=== PATIENT | female | born 1950 | race Caucasian/White ===

== ENCOUNTER 2020-03-26 15:50 | Outpatient (REF) | payer MEDICARE, SELFPAY ==
[2020-03-26 16:51] LABS: Basophils Percent Auto 0.6 % (0-2); Eosinophils Absolute Auto 0.4 X10*3/uL (0.0-0.4); Eosinophils Percent Auto 6.3 % (0-4); Hematocrit 31.9 % (37-47); Hemoglobin 9.8 g/dl (12.0-16.0); Imm Gran Abs Auto 0.02 X10*3/uL (0.00-0.03); Imm Gran Pct Auto 0.3 % (0.0-0.4); Lymphocytes Absolute Auto 2.2 X10*3/uL (1.2-4.9); Lymphocytes Percent Auto 34.6 % (20-40); MANUAL DIFF FLAG NO; Mean Corpuscular HGB Conc 30.7 g/dl (31.0-35.0); Mean Corpuscular Hemoglobin 28.7 pg (27.0-33.0); Mean Corpuscular Volume 93.5 fL (80-98); Mean Platelet Volume 9.7 fL (9.4-12.3); Monocytes Absolute Auto 0.8 X10*3/uL (0.1-1.2); Monocytes Percent Auto 12.2 % (2-11); Neutrophils Absolute Auto 2.9 X10*3/uL (2.0-8.3); Platelet Count 181 X10*3/uL (160-400); Red Blood Count 3.41 X10*6/uL (4.20-5.50); Red Cell Distribution Width 13.2 % (11.0-16.0); White Blood Count 6.2 X10*3/uL (4.8-10.8)
[2020-03-26 16:55] LABS: Appearance Urine CLEAR; Color Urine YELLOW; Glucose Urine UA NEG (NEG); Leukocyte Esterase Urine NEG (NEG); Nitrite Urine NEG (NEG); PH 5.5 (5.0-8.0); Specific Gravity - Urine 1.025 (1.005-1.025); Urine Blood 3+ (NEG); Urine Ketones NEG (NEG); Urine Protein 2+ MG/DL (NEG-TRACE)
[2020-03-26 17:08] LABS: Squamous Epithelial Cell Urine 2+ /LPF
[2020-03-26 17:09] LABS: Bacteria Urine TRACE /LPF; Mucus Urine TRACE /LPF
[2020-03-26 17:18] LABS: Alanine Aminotransferase 26 U/L (0-31); Albumin Level 3.4 g/dL (3.5-5.0); Alkaline Phosphatase 216 U/L (39-117); Anion Gap 12 (12-20); Aspartate Amino Transferase 41 U/L (5-31); Bilirubin Total 0.3 mg/dL (0.0-1.0); Blood Urea Nitrogen 28 mg/dL (9-16); Calcium 8.3 mg/dL (8.4-10.2); Carbon Dioxide 22 mmol/L (22-29); Chloride 108 mmol/L (96-108); Estimated Glomerular Filt Rate 24; Glucose Random 97 mg/dL (60-115); Iron 41 mcg/dL (30-160); Percent Iron Saturation 15 % (15-50); Phosphorus 3.8 mg/dL (2.7-4.5); Sodium 137 mmol/L (135-145); Total Iron Binding Capacity 265 mcg/dL (228-428); Total Protein 6.7 g/dL (6.5-8.0); Unsaturated Iron Binding 224 ug/dL; Uric Acid 5.3 mg/dL (2.4-5.7)
[2020-03-26 17:37] LABS: Ferritin 93 ng/mL (10-250)
[2020-03-26 17:46] LABS: Protein/Creatinine Ratio, Ur 5.07 (<0.2); Total Protein Urine Random 392 mg/dL (<12)
[2020-03-29 19:11] LABS: Calcium (PTHI) 8.8 mg/dL (8.6-10.4); PTHI 122 pg/mL (14-64)
== END 2020-03-26 15:51 | disposition home or self-care (01) ==
LOC: HO.LAB 15:50
PROVIDERS: PCP Family Medicine; Visit Provider Internal Medicine
DX: N18.4 Chronic kidney disease, stage 4 (severe) (principal)
CPT/HCPCS: 36415; 80053; 81001; 82306; 82728; 83540; 83970; 84100; 84156; 84550; 85025

== ENCOUNTER → 2020-04-20 14:51 | Outpatient (BNVA) | payer MEDICARE, SELFPAY | PROVIDERS: PCP Family Medicine; Referring Provider Family Medicine; Visit Provider Internal Medicine Cardiovascular Disease | DX: I47.2 Ventricular tachycardia (principal); Z45.02 Encounter for adjustment and management of automatic implantable cardiac defibrillator; I48.0 Paroxysmal atrial fibrillation; I25.5 Ischemic cardiomyopathy; I25.10 Atherosclerotic heart disease of native coronary artery without angina pectoris | CPT/HCPCS: 99212 ==

== ENCOUNTER 2020-08-26 13:31 | Outpatient (REF) | payer MEDICARE, SELFPAY ==
--- NOTE | ~2020-08-26 | MM_ITS ---
EXAMINATION: MM SCREENING DIGITAL BREAST TOMOSYNTHESIS, BILATERAL CLINICAL INFORMATION: Screening. Asymptomatic. The lifetime risk of breast cancer based on the Tyrer-Cuzick Model is 2%. COMPARISON: Mammography: 05/30/2019, 04/02/2018, 03/09/2017. TECHNIQUE: Digital breast tomosynthesis is performed in both the craniocaudal and mediolateral oblique views along with computer-aided detection (CAD). Synthesized 2D images are generated from the tomosynthesis. Additional right CC view is provided. FINDINGS: There are scattered areas of fibroglandular density (ACR BI-RADS breast composition Category b). There are no significant masses, abnormal calcifications, or other abnormalities. There are bilateral vascular and some scattered benign round calcifications again seen. Pacemaker generator overlies and partly obscures left axilla on MLO view. MM/MM tomosynthesis screening BI IMPRESSION: No mammographic evidence of malignancy. ASSESSMENT: BI-RADS 2: Benign RECOMMENDATION: Routine annual mammography screening. This patient's information was entered into a reminder system with a target due date for their next mammogram.
== END 2020-08-26 13:32 | disposition home or self-care (01) ==
LOC: HO.MAMMO 13:31
PROVIDERS: PCP Family Medicine; Visit Provider Family Medicine
DX: Z12.31 Encounter for screening mammogram for malignant neoplasm of breast (principal)
CPT/HCPCS: 77063; 77067

== ENCOUNTER 2020-11-01 08:24 | Outpatient (REF) | payer MEDICARE, SELFPAY ==
[2020-11-01 09:20] LABS: MANUAL DIFF FLAG NO
[2020-11-01 09:25] LABS: Basophils Percent Auto 0.7 % (0-2); Eosinophils Absolute Auto 0.3 X10*3/uL (0.0-0.4); Eosinophils Percent Auto 5.6 % (0-4); Hematocrit 34.2 % (37-47); Hemoglobin 10.5 g/dl (12.0-16.0); Imm Gran Abs Auto 0.02 X10*3/uL (0.00-0.03); Imm Gran Pct Auto 0.4 % (0.0-0.4); Lymphocytes Absolute Auto 1.7 X10*3/uL (1.2-4.9); Mean Corpuscular HGB Conc 30.7 g/dl (31.0-35.0); Mean Corpuscular Hemoglobin 28.1 pg (27.0-33.0); Mean Corpuscular Volume 91.4 fL (80-98); Monocytes Absolute Auto 0.6 X10*3/uL (0.1-1.2); Monocytes Percent Auto 11.1 % (2-11); Neutrophils Absolute Auto 2.9 X10*3/uL (2.0-8.3); Neutrophils Percent Auto 52.2 % (45-73); Platelet Count 138 X10*3/uL (160-400); Red Blood Count 3.74 X10*6/uL (4.20-5.50); Red Cell Distribution Width 14.7 % (11.0-16.0); White Blood Count 5.6 X10*3/uL (4.8-10.8)
[2020-11-01 09:27] LABS: Glucose Urine UA 100 MG/DL (NEG); Leukocyte Esterase Urine NEG (NEG); Nitrite Urine NEG (NEG); Urine Blood 2+ (NEG); Urine Ketones NEG (NEG); Urine Protein 3+ MG/DL (NEG-TRACE)
[2020-11-01 09:28] LABS: Appearance Urine CLEAR; Color Urine YELLOW
[2020-11-01 09:45] LABS: Amorphous Sediment Urine 2+ /LPF; Bacteria Urine TRACE /LPF; Hyaline Casts Urine 0-2 /LPF; Squamous Epithelial Cell Urine 2+ /LPF; WBC Urine 0-2 /HPF (0-4)
[2020-11-01 09:49] LABS: Estimated Average Glucose 114 mg/dL; Hemoglobin A1C 107.3465 umol/L; Hemoglobin A1c % 5.6 %
[2020-11-01 10:04] LABS: Alanine Aminotransferase 25 U/L (0-31); Albumin Level 2.8 g/dL (3.5-5.0); Alkaline Phosphatase 212 U/L (39-117); Anion Gap 9 (12-20); Aspartate Amino Transferase 51 U/L (5-31); Bilirubin Total 0.2 mg/dL (0.0-1.0); Blood Urea Nitrogen 26 mg/dL (9-16); Calcium 8.2 mg/dL (8.4-10.2); Carbon Dioxide 24 mmol/L (22-29); Chloride 112 mmol/L (96-108); Estimated Glomerular Filt Rate 21; Glucose Random 98 mg/dL (60-115); Magnesium 1.6 mg/dL (1.6-2.6); Phosphorus 3.1 mg/dL (2.7-4.5); Potassium 4.8 mmol/L (3.3-5.1); Sodium 140 mmol/L (135-145); Uric Acid 5.5 mg/dL (2.4-5.7)
[2020-11-01 10:13] LABS: Vitamin D 25-OH Total 21.9 ng/mL (>30)
== END 2020-11-01 08:25 | disposition home or self-care (01) ==
LOC: HO.LAB 08:24
PROVIDERS: PCP Family Medicine; Visit Provider Internal Medicine
DX: N18.4 Chronic kidney disease, stage 4 (severe) (principal)
CPT/HCPCS: 36415; 80053; 81001; 82306; 83036; 83735; 84100; 84550; 85025

== ENCOUNTER → 2020-11-08 12:06 | Outpatient (BNVA) | payer MEDICARE, SELFPAY | PROVIDERS: PCP Family Medicine; Referring Provider Family Medicine; Visit Provider Internal Medicine Cardiovascular Disease | DX: Z45.02 Encounter for adjustment and management of automatic implantable cardiac defibrillator (principal); I48.0 Paroxysmal atrial fibrillation; I25.5 Ischemic cardiomyopathy | CPT/HCPCS: 93005; 99212 ==

== ENCOUNTER → 2021-02-16 10:37 | Outpatient (BNVA) | payer MEDICARE, SELFPAY | PROVIDERS: PCP Family Medicine; Referring Provider Family Medicine; Visit Provider Nurse Practitioner Family | DX: I25.10 Atherosclerotic heart disease of native coronary artery without angina pectoris (principal); I25.5 Ischemic cardiomyopathy; I48.0 Paroxysmal atrial fibrillation; G45.9 Transient cerebral ischemic attack, unspecified; Z95.810 Presence of automatic (implantable) cardiac defibrillator | CPT/HCPCS: 93005; 99212 ==

== ENCOUNTER 2021-03-13 14:45 | Emergency (ER) | payer MEDICARE, SELFPAY ==
[2021-03-13 14:48] VITALS: BP 144/79; PULSE 68; RESP 16; TEMP 36.7; O2SAT 98; BMI 30.8
--- NOTE | 2021-03-13 17:46 | ED.GENADULT ---
HPI - General Adult General Chief complaint: General Medical Stated complaint: RECTAL PAIN Time Seen by Provider: 03/13/21 17:17 Source: patient and family Mode of arrival: ambulatory Limitations: no limitations History of Present Illness HPI narrative: Patient been complaining of burning sensation in the rectum since 11/01 has seen her PCP who advised to use lidocaine jelly. Advised to follow-up with gastroenterology which she has not done it yet. The patient denies any constipation any bleeding any diarrhea no abdominal pain no weight loss patient never had colonoscopy in the past. Related Data Home Medications Medication Instructions Recorded Confirmed amlodipine 5 mg tablet 5 mg PO DAILY 04/20/20 02/16/21 atorvastatin 80 mg tablet 80 mg PO BEDTIME 04/20/20 11/08/20 cholecalciferol (vitamin D3) 25 25 mcg PO DAILY 04/20/20 02/16/21 mcg (1,000 unit) capsule Previous Rx's Medication Instructions Recorded amiodarone 200 mg tablet 100 mg PO DAILY 90 Days #45 tab 11/10/20 apixaban 5 mg tablet (Eliquis) 5 mg PO BID #180 tab 12/06/20 magnesium oxide 400 mg (241.3 mg 400 mg PO DAILY 90 Days #90 tab 12/20/20 magnesium) tablet carvedilol 6.25 mg tablet 6.25 mg PO BID 90 Days #180 tab 02/08/21 Allergies Allergy/AdvReac Type Severity Reaction Status Date / Time No Known Allergies Allergy Verified 11/08/20 13:01 [No Known Allergies*] Review of Systems Review of Systems: Yes all other systems are reviewed and are negative [facility] Past Medical History Medical History CAD (coronary artery disease) HTN (hypertension) Hyperlipidemia ICD (implantable cardioverter-defibrillator) in place Ischemic cardiomyopathy Paroxysmal atrial fibrillation Ventricular tachycardia Surgical History History of pubovaginal sling Hx of knee surgery Family History Family History Father No problems noted. Mother No problems noted. Social History Social History Advance Directives: No Advance Directives Information Provided: No Physical Exam Vital Signs: Vital Signs: Last Vital Signs Temp 98.0 F 03/13/21 14:48 Pulse 68 03/13/21 14:48 Resp 16 03/13/21 14:48 BP 144/79 H 03/13/21 14:48 Pulse Ox 98 03/13/21 14:48 Body Mass Index 30.8 Appearance: Alert. Oriented X3. No acute distress. Eyes: No pallor or icterus ENT: Pharynx normal. Oral Mucosa moist Neck: Normal inspection. Neck supple. CVS: Normal heart rate and rhythm. Pulses normal. Respiratory: No respiratory distress. Equal air entry bilateral, no wheezing/rales/rhonchi Abdomen: Soft and nontender. Bowel sounds are present, no mass palpable, no CVA tenderness Rectum: No mass palpable nontender exam no hemorrhoids Skin: Skin warm and dry. Normal skin color. Normal skin turgor. Extremities: No lower extremity edema. No calf tenderness Neuro: Oriented X 3. Medical Decision Making MDM Narrative Medical decision making narrative: Patient with nonspecific burning sensation in her rectum etiology not clear advised to follow with gastroenterology for colonoscopy Discharge Plan Discharge Clinical Impression: Chronic rectal pain Patient Disposition: Home, Self-Care Instructions: Rectal Pain (ED) Additional Instructions: Etiology of rectal pain not clear Follow-up with bell attendant for further evaluation Continue to use your lidocaine cream as provided by your PCP Prescriptions: No Action amiodarone 200 mg tablet 100 mg PO DAILY 90 Days Qty: 45 RF: 3 apixaban [Eliquis] 5 mg tablet 5 mg PO BID Qty: 180 RF: 0 magnesium oxide 400 mg (241.3 mg magnesium) tablet 400 mg PO DAILY 90 Days Qty: 90 RF: 1 carvedilol 6.25 mg tablet 6.25 mg PO BID 90 Days Qty: 180 RF: 1 cholecalciferol (vitamin D3) 25 mcg (1,000 unit) capsule 25 mcg PO DAILY RF: 0 amlodipine 5 mg tablet 5 mg PO DAILY RF: 0 atorvastatin 80 mg tablet 80 mg PO BEDTIME RF: 0 Print Language: English
== END 2021-03-13 17:59 | disposition home or self-care (01) ==
PROVIDERS: Emergency Provider Internal Medicine; PCP Nurse Practitioner
DX: G89.29 Other chronic pain (principal); K62.89 Other specified diseases of anus and rectum; I10 Essential (primary) hypertension; E78.5 Hyperlipidemia, unspecified; I48.0 Paroxysmal atrial fibrillation
CPT/HCPCS: 99282

== ENCOUNTER → 2021-03-21 13:36 | Outpatient (REF) | payer MEDICARE, SELFPAY ==
--- NOTE | ~2021-03-21 | US_ITS ---
EXAMINATION: US EXTRACRANIAL CAROTID DUPLEX, BILATERAL CLINICAL INFORMATION: History of TIA. History of hypertension and hyperlipidemia. COMPARISON: None TECHNIQUE: Real-time ultrasound and Doppler techniques (integrating B-mode 2-D vascular images, Doppler spectral analysis and color-flow Doppler imaging) were utilized to interrogate the extracranial carotid arteries, the vertebral arteries and proximal subclavian arteries bilaterally. The degree of stenosis is determined by criteria similar to NASCET. FINDINGS: Right Side: 1. There is mild atherosclerotic plaque seen in the bifurcation/proximal ICA region. 2. The common carotid artery PSV proximally is 71.8 cm/s and distally 62.9 cm/s. 3. The proximal internal carotid artery velocities are 76.8 cm/s systolic and 19.8 cm/s diastolic. 4. The proximal external carotid artery PSV is 87.6 cm/s. 5. The vertebral artery shows antegrade flow. 6. The subclavian artery waveforms are normal. Left Side: 1. There is mild atherosclerotic plaque seen in the bifurcation/proximal ICA region. 2. The common carotid artery PSV proximally is 101 cm/s and distally 85 cm/s. 3. The proximal internal carotid artery velocities are 60.4 cm/s systolic and 14.1 cm/s diastolic. 4. The proximal external carotid artery PSV is 82.1 cm/s. 5. The vertebral artery shows antegrade flow. 6. The subclavian artery waveforms are normal. Additional: Multiple thyroid nodules identified incidentally. US/US carotid duplex BI IMPRESSION: 1. RIGHT: Minimal, non-hemodynamically significant stenosis of the proximal right internal carotid artery corresponding to a 0-49% stenosis by velocity criteria. 2. LEFT: Minimal, non-hemodynamically significant stenosis of the proximal left internal carotid artery corresponding to a 0-49% stenosis by velocity criteria. 3. Incidentally noted are multiple thyroid nodules. Consider dedicated thyroid ultrasound for further evaluation.
--- NOTE | 2021-03-21 13:39 | CA_ITS ---
Transthoracic Echocardiogram Patient (Last, First, Middle): Gabriel Beck, Gender: Female Date of : 1950 Age: 70 Procedure Date: 03/21/2021 Procedure Type: Transthoracic Echocardiogram Location: OP Height: 152.4 cm Weight: 71.67 kg BSA: 1.69 m2 Heart Rate: bpm BP: 140 / 78 mmHg Maintenance Machinist: DENIS Referring MD: Orion Adams MD Symptoms: I25.5 - Ischemic cardiomyopathy Study Quality: Fair ECG Rhythm: Sinus Conclusions: - The left ventricular systolic function is mildly decreased. The calculated ejection fraction is 45% by biplane method. - The basal inferior, mid inferior, and basal inferolateral segments are akinetic. - There is mild mitral valve regurgitation. - There is mild tricuspid valve regurgitation. Findings Left Ventricle Normal left ventricular cavity size. There is mildly increased left ventricular wall thickness. The left ventricular systolic function is mildly decreased. The calculated ejection fraction is 45% by biplane method. E/E prime ratio is >15, consistent with elevated filling pressures. Evidence suggests grade I (mild) diastolic dysfunction. Wall Motion Rest Echo Findings The basal inferior, mid inferior, and basal inferolateral segments are akinetic. Right Ventricle There is a pacemaker wire seen in the right ventricle. Atria The left atrium is mildly dilated. The right atrium is normal in size. Aortic Valve There is a normal trileaflet aortic valve. There is no aortic valve stenosis. There is no aortic valve regurgitation. Mitral Valve There is mild mitral annular calcification. There is mild mitral valve regurgitation. There is no mitral valve stenosis. Pulmonic Valve The pulmonic valve is likely normal. Tricuspid Valve There is mild tricuspid valve regurgitation. The pulmonary artery systolic pressure is normal. Great Vessels The aortic annulus is normal in size. Venous The inferior vena cava is normal in size and collapses greater than 50% with inspiration. Pericardium/Pleural There is a trivial pericardial effusion. Prior Study Comparison No significant change compared to prior study dated: 01/09/2020. Measurements 2D Linear Measurements IVSd: 1.28 0.6-0.9/0.6-1.0 cm LVIDd: 6.03 3.9-5.3/4.2-5.9 cm LVIDd Index: 3.57 2.4-3.2/2.2-3.1 cm/m2 LVIDs: 4.98 2.0-3.6 cm LVPWd: 0.93 0.7-1.1 cm Ao Root: 3.00 2.1-3.5 cm LA Diam: 4.80 2.7-3.8/3.0-4.0 cm LAIDs Index: 2.84 1.5-2.3 cm/m2 LV Mass: 353.62 67-162/88-224 g LV Mass Index: 209.24 43-95/49-115 g/m2 LVOT Diam: 2.00 3.0+(-)1.3 cm 2D Systolic Function EF 4C: 53.00 >55% EF 2C: 37.80 >55% EF BiP: 44.80 >55% Mitral Valve MV Pk E: 1.13 MV PK A: 1.61 MV Decel Time: 149.00 E/A: 0.70 E'Lateral: 4.03 E'Medial: 4.03 E/E' Med: 28.00 E/E' Lat: 28.00 PHT: 44.00 MVA PHT: 5.00 Decel [place]: 7.62 Aortic Valve AoV Pk Ze: 1.53 AoV Pk Grad: 9.00 LVOT LVOT Pk Ze: 1.01 LVOT Mn Ze: 0.62 LVOT VTI: 0.22 LVOT Pk Grad: 4.00 LVOT Mn Grad: 2.00 LVOT Diam: 2.00 LVOT Area: 3.14 Diastolic Function MV Pk E: 1.13 MV Pk A: 1.61 E/A: 0.70 E'Medial: 4.03 E/E' Med: 28.00 E' Laterial: 4.03 E/E' Lat: 28.00 Right Ventricle TAPSE (mm): 2.26 Tricuspid Valve TR Pk Ze: 2.66 TR Pk Grad: 28.00 RA Press: 3.00 RVSP: 31.00 Great Vessels Aorta Ao Root-2D: 3.00 2.0-3.7 cm Ao Asc: 3.70 2.1-3.4 cm Updated in Other Vendor System with Status of Final Lee Lanza MD electronically signed on 03/21/2021 5:20:48 PM with status of Final
== END ==
LOC: HO.CARD 13:36
PROVIDERS: PCP Family Medicine; Visit Provider Nurse Practitioner Family
DX: I25.5 Ischemic cardiomyopathy (principal); G45.9 Transient cerebral ischemic attack, unspecified
CPT/HCPCS: 93306; 93880

== ENCOUNTER → 2021-03-24 15:06 | Outpatient (BNVA) | payer MEDICARE, SELFPAY | PROVIDERS: PCP Family Medicine; Referring Provider Family Medicine; Visit Provider Internal Medicine Cardiovascular Disease | DX: Z45.02 Encounter for adjustment and management of automatic implantable cardiac defibrillator (principal); I48.0 Paroxysmal atrial fibrillation; I25.5 Ischemic cardiomyopathy | CPT/HCPCS: 99212 ==

== ENCOUNTER 2021-04-05 10:52 | Outpatient (REF) | payer MEDICARE, SELFPAY ==
[2021-04-05 11:18] LABS: MANUAL DIFF FLAG NO
[2021-04-05 11:40] LABS: Basophils Percent Auto 0.4 % (0-2); Eosinophils Absolute Auto 0.3 X10*3/uL (0.0-0.4); Eosinophils Percent Auto 4.6 % (0-4); Hematocrit 32.9 % (37.0-47.0); Hemoglobin 10.3 g/dl (12.0-16.0); Imm Gran Abs Auto 0.04 X10*3/uL (0.00-0.03); Imm Gran Pct Auto 0.6 % (0.0-0.4); Lymphocytes Absolute Auto 1.6 X10*3/uL (1.2-4.9); Lymphocytes Percent Auto 22.5 % (20-40); Mean Corpuscular HGB Conc 31.3 g/dl (31.0-35.0); Mean Corpuscular Volume 89.4 fL (80.0-98.0); Mean Platelet Volume 8.9 fL (9.4-12.3); Monocytes Absolute Auto 0.8 X10*3/uL (0.1-1.2); Monocytes Percent Auto 10.4 % (2-11); Neutrophils Absolute Auto 4.4 x10*3/uL (2.0-8.3); Neutrophils Percent Auto 61.5 % (45-73); Platelet Count 184 X10*3/uL (160-400); Red Blood Count 3.68 X10*6/uL (4.20-5.50); Red Cell Distribution Width 15.1 % (11.0-16.0); White Blood Count 7.2 X10*3/uL (4.8-10.8)
[2021-04-05 12:19] LABS: Alanine Aminotransferase 30 U/L (0-31); Albumin Level 2.7 g/dL (3.5-5.0); Alkaline Phosphatase 132 U/L (39-117); Anion Gap 12 (12-20); Aspartate Amino Transferase 44 U/L (5-31); Bilirubin Total 0.3 mg/dL (0.0-1.0); Blood Urea Nitrogen 44 mg/dL (9-16); Calcium 8.2 mg/dL (8.4-10.2); Carbon Dioxide 22 mmol/L (22-29); Chloride 112 mmol/L (96-108); Estimated Glomerular Filt Rate 9; Glucose Random 97 mg/dL (60-115); Iron 25 mcg/dL (30-160); Percent Iron Saturation 13 % (15-50); Potassium 4.3 mmol/L (3.3-5.1); Sodium 142 mmol/L (135-145); Total Iron Binding Capacity 196 mcg/dL (228-428); Total Protein 6.8 g/dL (6.5-8.0); Unsaturated Iron Binding 171 ug/dL
[2021-04-05 12:29] LABS: Ferritin 185 ng/mL (10-250)
== END 2021-04-05 10:53 | disposition home or self-care (01) ==
LOC: HO.LAB 10:52
PROVIDERS: PCP Family Medicine; Visit Provider Internal Medicine
DX: N18.4 Chronic kidney disease, stage 4 (severe) (principal); D63.1 Anemia in chronic kidney disease
CPT/HCPCS: 36415; 80053; 82728; 83540; 85025

== ENCOUNTER 2021-04-11 12:27 | Outpatient (REF) | payer MEDICARE, SELFPAY ==
[2021-04-11 13:59] LABS: Alanine Aminotransferase 31 U/L (0-31); Albumin Level 2.7 g/dL (3.5-5.0); Alkaline Phosphatase 133 U/L (39-117); Anion Gap 15 (12-20); Aspartate Amino Transferase 48 U/L (5-31); Bilirubin Total 0.3 mg/dL (0.0-1.0); Blood Urea Nitrogen 51 mg/dL (9-16); Carbon Dioxide 19 mmol/L (22-29); Chloride 109 mmol/L (96-108); Estimated Glomerular Filt Rate 10; Glucose Random 91 mg/dL (60-115); Magnesium 1.4 mg/dL (1.6-2.6); Phosphorus 4.9 mg/dL (2.7-4.5); Sodium 139 mmol/L (135-145); Total Protein 6.6 g/dL (6.5-8.0)
[2021-04-11 14:02] LABS: Appearance Urine CLOUDY; Color Urine YELLOW; Glucose Urine UA NEG (NEG); Leukocyte Esterase Urine 2+ (NEG); Nitrite Urine NEG (NEG); PH 5.5 (5.0-8.0); Specific Gravity - Urine 1.025 (1.005-1.025); Urine Blood 3+ (NEG); Urine Ketones NEG (NEG); Urine Protein 3+ MG/DL (NEG-TRACE)
[2021-04-11 14:47] LABS: Creatinine Urine 93.09 mg/dL
[2021-04-11 14:59] LABS: EOS Counted 1 CELLS; WBC, Counted 100 CELLS
[2021-04-11 15:00] LABS: EOS QC POS YES; EOS Stain Quality OK YES
[2021-04-11 16:04] LABS: WBC Urine TNTC /HPF (0-4)
[2021-04-11 16:05] LABS: Bacteria Urine 2+ /LPF; Granular Casts Urine 0-2 /LPF; Squamous Epithelial Cell Urine TRACE /LPF; WBC Clumps Urine NOTED
== END 2021-04-11 12:28 | disposition home or self-care (01) ==
LOC: HO.LAB 12:27
PROVIDERS: Visit Provider Internal Medicine
DX: N18.4 Chronic kidney disease, stage 4 (severe) (principal); N17.9 Acute kidney failure, unspecified
CPT/HCPCS: 36415; 80053; 81001; 81003; 83735; 84100; 89190

== ENCOUNTER 2021-05-09 13:48 | Outpatient (REF) | payer MEDICARE, SELFPAY ==
[2021-05-09 14:54] LABS: MANUAL DIFF FLAG NO
[2021-05-09 14:59] LABS: Basophils Percent Auto 0.5 % (0-2); Eosinophils Absolute Auto 0.3 X10*3/uL (0.0-0.4); Eosinophils Percent Auto 4.5 % (0-4); Hematocrit 30.9 % (37.0-47.0); Hemoglobin 9.5 g/dl (12.0-16.0); Imm Gran Abs Auto 0.01 X10*3/uL (0.00-0.03); Imm Gran Pct Auto 0.2 % (0.0-0.4); Lymphocytes Absolute Auto 1.3 X10*3/uL (1.2-4.9); Lymphocytes Percent Auto 20.7 % (20-40); Mean Corpuscular HGB Conc 30.7 g/dl (31.0-35.0); Mean Corpuscular Hemoglobin 27.6 pg (27.0-33.0); Mean Corpuscular Volume 89.8 fL (80.0-98.0); Mean Platelet Volume 8.6 fL (9.4-12.3); Monocytes Absolute Auto 0.6 X10*3/uL (0.1-1.2); Monocytes Percent Auto 8.8 % (2-11); Neutrophils Absolute Auto 4.1 x10*3/uL (2.0-8.3); Neutrophils Percent Auto 65.3 % (45-73); Platelet Count 181 X10*3/uL (160-400); Red Blood Count 3.44 X10*6/uL (4.20-5.50); White Blood Count 6.3 X10*3/uL (4.8-10.8)
[2021-05-09 15:28] LABS: B Type Natriuretic Peptide 567 pg/mL (<100)
[2021-05-09 15:31] LABS: Alanine Aminotransferase 39 U/L (0-31); Albumin Level 2.8 g/dL (3.5-5.0); Alkaline Phosphatase 102 U/L (39-117); Anion Gap 16 (12-20); Aspartate Amino Transferase 58 U/L (5-31); Bilirubin Total 0.5 mg/dL (0.0-1.0); Blood Urea Nitrogen 91 mg/dL (9-16); Calcium 8.3 mg/dL (8.4-10.2); Carbon Dioxide 21 mmol/L (22-29); Chloride 111 mmol/L (96-108); Glucose Random 99 mg/dL (60-115); Magnesium 1.8 mg/dL (1.6-2.6); Potassium 4.8 mmol/L (3.3-5.1); Sodium 143 mmol/L (135-145); Total Protein 7.2 g/dL (6.5-8.0)
[2021-05-09 16:56] LABS: Estimated Glomerular Filt Rate 5
== END 2021-05-09 13:49 | disposition home or self-care (01) ==
LOC: HO.LAB 13:48
PROVIDERS: PCP Family Medicine; Referring Provider Family Medicine; Visit Provider Nurse Practitioner Family
DX: I25.10 Atherosclerotic heart disease of native coronary artery without angina pectoris (principal); I25.5 Ischemic cardiomyopathy; I48.0 Paroxysmal atrial fibrillation; I47.2 Ventricular tachycardia; E78.5 Hyperlipidemia, unspecified; Z95.810 Presence of automatic (implantable) cardiac defibrillator
CPT/HCPCS: 36415; 80053; 83735; 83880; 85025; 93005; 99212

== ENCOUNTER 2021-05-09 18:33 | Emergency (ER) | payer MEDICARE, SELFPAY ==
--- NOTE | 2021-05-09 20:15 | PC.NURSE ---
patient came into triage with provider relations advocate, pt states she wants to call her relative to come pick her up as she doesnt want to be seen today.
== END 2021-05-09 20:56 | disposition left against medical advice (07) ==
PROVIDERS: Emergency Provider Emergency Medicine; PCP Family Medicine
DX: N19 Unspecified kidney failure (principal)

== ENCOUNTER 2021-05-10 10:26 | Inpatient (IN) | payer MEDICARE, SELFPAY ==
--- NOTE | ~2021-05-10 | IR_ITS ---
PROCEDURE: IR INSERTION OF TUNNEL CATHETER CLINICAL INFORMATION: Needs dialysis catheter. COMPARISON: Chest x-ray of May 10, 2021 TECHNIQUE : Informed consent was obtained from the patient prior to the procedure. During this process, the procedure and potential alternatives were explained, along with the intended outcome and benefits. The risks of the procedure, as well as the risk of not doing the procedure, were discussed. The patient was given the opportunity to ask questions regarding the procedure and appeared competent to make medical decisions. A signed consent form which documents this discussion was placed in the medical record. Ultrasound evaluation was performed demonstrating patency of the right internal jugular vein. Ultrasound image was obtained and sent to PACS storage. All elements of maximal sterile barrier technique followed including use of cap, mask, sterile gown, sterile gloves, a sterile full body drape and hand hygiene. Also followed skin preparation with 2% chlorhexidine for cutaneous antisepsis, and sterile ultrasound preparation with sterile gel and probe cover when applicable. Acupuncture needle was placed into the right internal jugular vein with ultrasound guidance. Guidewire was placed and over the guidewire and the dilator was placed within the superior vena cava. Through the catheter a 0.035 guidewire was positioned in the inferior vena cava. Attention was then turned to creating a tunnel track within the right upper chest wall. The dialysis catheter was then pulled through the tunnel track. Over the indwelling catheter fascial dilatation was performed with placement of a peel-away sheath. The dialysis catheter was then placed through the peel-away sheath with its tip position in the superior to mid portions of the right atrium. Both ports aspirate and flush freely and were locked with 1.9 mL of heparin, 5000 units per milliliter. The catheter was then sutured in place. Tissue adhesive was then placed over the internal jugular puncture site. FINDINGS: Placement of right internal jugular PermCath as described above. IR/IR cvc insert tunnel w prt/stripping shovel oiler IMPRESSION: Placement of right internal jugular 23 cm dialysis catheter as described. 1 minute fluoroscopy time. DAP: 138 cGy centimeter squared
--- NOTE | ~2021-05-10 | US_ITS ---
EXAMINATION: ULTRASOUND-GUIDED PARACENTESIS CLINICAL INFORMATION: Abdominal distention with ascites COMPARISON: Ultrasound May 10, 2021 TECHNIQUE: Ultrasound-guided paracentesis FINDINGS: Informed consent was obtained from the patient prior to the procedure. During this process, the procedure and potential alternatives were explained, along with the intended outcome and benefits. The risks of the procedure, as well as the risk of not doing the procedure, were discussed. The patient was given the opportunity to ask questions regarding the procedure and appeared competent to make medical decisions. A signed consent form which documents this discussion was placed in the medical record. Using sterile technique and ultrasound guidance a 5 English Yueh needle was directed into the right lower quadrant peritoneal cavity with a total of 5.4 L of clear yellow fluid being drained. Samples were sent for laboratory studies. Patient tolerated procedure without difficulty. US/US paracentesis abd w/image IMPRESSION: Paracentesis with removal of 5.4 L of clear yellow fluid.
--- NOTE | ~2021-05-10 | XR_ITS ---
EXAMINATION: XR CHEST CLINICAL INFORMATION: Shortness of breath. COMPARISON: Chest x-ray 01/07/2019. TECHNIQUE: Portable AP upright view of the chest was obtained. FINDINGS: There is a left-sided AICD device with RV lead. The cardiac silhouette is mildly enlarged, similar to the prior study. The lungs are hypoexpanded. There is no congestion. There is subsegmental opacity at the left lung base. XR/XR chest 1V IMPRESSION: Subsegmental opacity at the left lung base which could represent atelectasis or pneumonia. Correlate clinically.
--- NOTE | ~2021-05-10 | US_ITS ---
EXAMINATION: US ABDOMEN LIMITED CLINICAL INFORMATION: Ascites. COMPARISON: CT abdomen pelvis 01/07/2019 TECHNIQUE: Real-time imaging of the abdominal quadrants without evaluation abdominal viscera. FINDINGS: Moderate ascites is present in all quadrants as well as the pelvis. This is a new finding when compared to the 2019 CT scan. US/US abdomen limited IMPRESSION: Moderate ascites is present.
[2021-05-10 10:41] VITALS: BP 141/66; PULSE 89; RESP 17; TEMP 36.7; O2SAT 98; BMI 34.2
--- NOTE | 2021-05-10 11:58 | ED_ITS ---
HPI - General Adult General Chief complaint: General Medical Stated complaint: ?Kidney Failure Water Retention Time Seen by Provider: 05/10/21 11:58 Source: patient Mode of arrival: ambulatory Limitations: no limitations History of Present Illness HPI narrative: This is a 70 years old patient presented to the emergency department with a chief complaint of leg edema up to the thigh, she has history of coronary artery disease she has an implantable defibrillator she has paroxysmally fever, hypertension she was seen yesterday by the Cardiology Department as well. She has been taking torsemide daily Onset (ago): week(s) (1) Location: lower extremity Radiation: non-radiation Severity: moderate Pain Consistency: constant Exacerbating factors: none Related Data Home Medications Medication Instructions Recorded Confirmed amlodipine 5 mg tablet 5 mg PO DAILY 04/20/20 05/10/21 atorvastatin 80 mg tablet 80 mg PO BEDTIME 04/20/20 05/10/21 cholecalciferol (vitamin D3) 25 25 mcg PO DAILY 04/20/20 05/10/21 mcg (1,000 unit) capsule torsemide 20 mg tablet 40 mg PO DAILY tab 05/09/21 05/10/21 calcium carbonate 600 mg-vitamin 1 tab PO BEDTIME 05/10/21 05/10/21 D3 10 mcg (400 unit) tablet loratadine 10 mg tablet 10 mg PO Q48H 05/10/21 05/10/21 omeprazole 20 mg capsule,delayed 20 mg PO DAILY 05/10/21 05/10/21 release Previous Rx's Medication Instructions Recorded amiodarone 200 mg tablet 100 mg PO DAILY 90 Days #45 tab 11/10/20 magnesium oxide 400 mg (241.3 mg 400 mg PO DAILY 90 Days #90 tab 12/20/20 magnesium) tablet carvedilol 6.25 mg tablet 6.25 mg PO BID 90 Days #180 tab 02/08/21 apixaban 5 mg tablet (Eliquis) 5 mg PO BID #180 tab 05/05/21 Allergies Allergy/AdvReac Type Severity Reaction Status Date / Time NSAIDS (Non-Steroidal Allergy Unknown Unknown Verified 05/09/21 14:01 Anti-Inflamma Review of Systems Review of Systems: Yes all other systems are reviewed and are negative Constitutional: Constitutional: Reports weight gain Cardiovascular: Cardiovascular: Reports no additional cardiovascular complaints Respiratory: Respiratory: Reports no additional respiratory complaints Gastrointestinal: Gastrointestinal: Denies abdominal pain Neurologic: Reports system reviewed and no additional complaints, except as documented Hematologic/Lymphatic: Hematologic/Lymphatic: Reports no additional hematologic/lymphatic complaints [facility] Past Medical History Medical History CAD (coronary artery disease) HTN (hypertension) Hyperlipidemia ICD (implantable cardioverter-defibrillator) in place Ischemic cardiomyopathy Paroxysmal atrial fibrillation Ventricular tachycardia Surgical History History of pubovaginal sling Hx of knee surgery Family History Family History Father No problems noted. Mother No problems noted. Social History Social History Advance Directives: No Advance Directives Information Provided: Yes Physical Exam Vital Signs: Vital Signs: Last Vital Signs Temp 97.7 F 05/10/21 17:14 Pulse 69 05/10/21 17:14 Resp 20 05/10/21 17:14 BP 149/72 H 05/10/21 17:14 Pulse Ox 100 05/10/21 17:14 BMI result Body Mass Index 34.2 Const: General: cooperative and no acute distress Orientation/consciousness: patient oriented x3 HENMT: Head: Yes normal to inspection General nose exam: Normal external nose present Face and sinus: Yes normal facial exam Mouth: Normal oral and palatal mucosa present Throat: Yes posterior oropharynx normal Neck: Neck: Yes normal visual inspection and Yes full ROM Chest: Chest palpation & inspection: normal inspection of the chest Resp: Effort & Inspection: normal respiratory effort Auscultation: clear to auscultation bilaterally Cardio: Jugular venous distension: no JVD Rhythm: regular rhythm GI: Inspection: Yes normal to inspection Palpation (GI): Soft to palpation, not firm and nontender Skin: General skin exam: no rashes or lesions noted Neuro: General: patient oriented x3 Extrem: Other: 3 plus edema Course Course Course Narrative: I discussed the case with the relationship mgr on-call Dr Tay Davison, we will go ahead and consult IR for dialysis catheter, patient is approaching dialysis need, will admit him to the hospitalist service Medical Decision Making Lab Data Result diagrams: 05/10/21 12:42 05/10/21 12:42 Labs: Lab Results 05/10/21 05/10/21 05/10/21 Range/Units 12:42 12:42 12:42 WBC 5.9 (4.8-10.8) X10*3/uL RBC 3.28 L (4.20-5.50) X10*6/uL Hgb 8.9 L (12.0-16.0) g/dl Hct 29.1 L (37.0-47.0) % MCV 88.7 (80.0-98.0) fL MCH 27.1 (27.0-33.0) pg MCHC 30.6 L (31.0-35.0) g/dl RDW 15.0 (11.0-16.0) % Plt Count 152 L (160-400) X10*3/uL MPV 8.9 L (9.4-12.3) fL Immature Gran % (Auto) 0.3 (0.0-0.4) % Neut % (Auto) 63.5 (45-73) % Lymph % (Auto) 22.7 (20-40) % [place] % (Auto) 8.3 (2-11) % Eos % (Auto) 4.9 H (0-4) % Baso % (Auto) 0.3 (0-2) % Lymph # (Auto) 1.3 (1.2-4.9) X10*3/uL [place] # (Auto) 0.5 (0.1-1.2) X10*3/uL Eos # (Auto) 0.3 (0.0-0.4) X10*3/uL Baso # (Auto) 0.0 (0.0-0.2) X10*3/uL Abs Immat Gran (auto) 0.02 (0.00-0.03) X10*3/uL Absolute Neuts (auto) 3.7 (2.0-8.3) x10*3/uL Absolute Nucleated RBC 0.000 (0.0-0.012) X10*3/uL Nucleated RBC % (auto) 0.0 (0.0-0.2) /100WBC PT 23.1 H (9.9-13.0) SEC INR 2.0 H (0.9-1.1) APTT 45.7 H (24.1-38.0) SEC Sodium 141 (135-145) mmol/L Potassium 5.0 (3.3-5.1) mmol/L Chloride 113 H (96-108) mmol/L Carbon Dioxide 19 L (22-29) mmol/L Anion Gap 14 (12-20) BUN 93 H (9-16) mg/dL Creatinine 9.16 H* (0.5-1.4) mg/dL Estim Creat Clear Calc 5.1 Estimated GFR 4 Random Glucose 97 (60-115) mg/dL Calcium 8.2 L (8.4-10.2) mg/dL Total Bilirubin 0.4 (0.0-1.0) mg/dL AST 51 H (5-31) U/L ALT 34 H (0-31) U/L Alkaline Phosphatase 103 (39-117) U/L Troponin I High Sens (<3.5-17.0) ng/L B-Natriuretic Peptide (<100) pg/mL Total Protein 6.9 (6.5-8.0) g/dL Albumin 2.7 L (3.5-5.0) g/dL COVID-19 ([facility]I) (Negative) COVID-19 Clin Com 05/10/21 05/10/21 Range/Units 12:42 12:42 WBC (4.8-10.8) X10*3/uL RBC (4.20-5.50) X10*6/uL Hgb (12.0-16.0) g/dl Hct (37.0-47.0) % MCV (80.0-98.0) fL MCH (27.0-33.0) pg MCHC (31.0-35.0) g/dl RDW (11.0-16.0) % Plt Count (160-400) X10*3/uL MPV (9.4-12.3) fL Immature Gran % (Auto) (0.0-0.4) % Neut % (Auto) (45-73) % Lymph % (Auto) (20-40) % [place] % (Auto) (2-11) % Eos % (Auto) (0-4) % Baso % (Auto) (0-2) % Lymph # (Auto) (1.2-4.9) X10*3/uL [place] # (Auto) (0.1-1.2) X10*3/uL Eos # (Auto) (0.0-0.4) X10*3/uL Baso # (Auto) (0.0-0.2) X10*3/uL Abs Immat Gran (auto) (0.00-0.03) X10*3/uL Absolute Neuts (auto) (2.0-8.3) x10*3/uL Absolute Nucleated RBC (0.0-0.012) X10*3/uL Nucleated RBC % (auto) (0.0-0.2) /100WBC PT (9.9-13.0) SEC INR (0.9-1.1) APTT (24.1-38.0) SEC Sodium (135-145) mmol/L Potassium (3.3-5.1) mmol/L Chloride (96-108) mmol/L Carbon Dioxide (22-29) mmol/L Anion Gap (12-20) BUN (9-16) mg/dL Creatinine (0.5-1.4) mg/dL Estim Creat Clear Calc Estimated GFR Random Glucose (60-115) mg/dL Calcium (8.4-10.2) mg/dL Total Bilirubin (0.0-1.0) mg/dL AST (5-31) U/L ALT (0-31) U/L Alkaline Phosphatase (39-117) U/L Troponin I High Sens 23.4 H (<3.5-17.0) ng/L B-Natriuretic Peptide 550 H (<100) pg/mL Total Protein (6.5-8.0) g/dL Albumin (3.5-5.0) g/dL COVID-19 ([facility]I) Negative (Negative) COVID-19 Clin Com See Note Discharge Plan Discharge Clinical Impression: Renal failure (ARF), acute on chronic, Anasarca Patient Disposition: Admitted As Inpatient
--- NOTE | 2021-05-10 12:03 | ECG_ITS ---
Test Reason : GEN MED Blood Pressure : / mmHG Vent. Rate : 061 BPM Atrial Rate : 061 BPM P-R Int : 204 ms QRS Dur : 100 ms QT Int : 484 ms P-R-T Axes : 041 -41 -32 degrees QTc Int : 487 ms Normal sinus rhythm Left axis deviation Inferior infarct , age undetermined Anterolateral infarct (cited on or before 07-JAN-2019) Abnormal ECG When compared with ECG of 07-JAN-2019 22:23, Premature ventricular complexes are no longer Present Inferior infarct is now Present Questionable change in initial forces of Anterolateral leads Referred By: Ranjith Avila Electronically Signed By:Yehuda Eastman
[2021-05-10 12:48] LABS: MANUAL DIFF FLAG NO
[2021-05-10 12:50] LABS: Basophils Percent Auto 0.3 % (0-2); Eosinophils Absolute Auto 0.3 X10*3/uL (0.0-0.4); Eosinophils Percent Auto 4.9 % (0-4); Hematocrit 29.1 % (37.0-47.0); Hemoglobin 8.9 g/dl (12.0-16.0); Imm Gran Abs Auto 0.02 X10*3/uL (0.00-0.03); Imm Gran Pct Auto 0.3 % (0.0-0.4); Lymphocytes Absolute Auto 1.3 X10*3/uL (1.2-4.9); Lymphocytes Percent Auto 22.7 % (20-40); Mean Corpuscular HGB Conc 30.6 g/dl (31.0-35.0); Mean Corpuscular Hemoglobin 27.1 pg (27.0-33.0); Mean Corpuscular Volume 88.7 fL (80.0-98.0); Mean Platelet Volume 8.9 fL (9.4-12.3); Monocytes Absolute Auto 0.5 X10*3/uL (0.1-1.2); Monocytes Percent Auto 8.3 % (2-11); Neutrophils Absolute Auto 3.7 x10*3/uL (2.0-8.3); Neutrophils Percent Auto 63.5 % (45-73); Platelet Count 152 X10*3/uL (160-400); Red Blood Count 3.28 X10*6/uL (4.20-5.50); White Blood Count 5.9 X10*3/uL (4.8-10.8)
[2021-05-10 12:55] LABS: Prothrombin Time 23.1 SEC (9.9-13.0)
[2021-05-10 12:58] LABS: Partial Thromboplastin Time 45.7 SEC (24.1-38.0)
--- NOTE | 2021-05-10 13:00 | PC.NURSE ---
iv inserted, labs drawn, pt placed on inventory coordinator, sinus martin 60s, vss
[2021-05-10 13:04] LABS: COVID-19 Test Negative (Negative)
[2021-05-10 13:09] LABS: Alanine Aminotransferase 34 U/L (0-31); Albumin Level 2.7 g/dL (3.5-5.0); Alkaline Phosphatase 103 U/L (39-117); Anion Gap 14 (12-20); Aspartate Amino Transferase 51 U/L (5-31); Bilirubin Total 0.4 mg/dL (0.0-1.0); Blood Urea Nitrogen 93 mg/dL (9-16); Calcium 8.2 mg/dL (8.4-10.2); Carbon Dioxide 19 mmol/L (22-29); Chloride 113 mmol/L (96-108); Creatinine Clr Calc Pharmacy 5.1; Estimated Glomerular Filt Rate 4; Glucose Random 97 mg/dL (60-115); Sodium 141 mmol/L (135-145); Total Protein 6.9 g/dL (6.5-8.0)
[2021-05-10 13:10] LABS: B Type Natriuretic Peptide 550 pg/mL (<100); Troponin-I High Sensitivity 23.4 ng/L (<3.5-17.0)
[2021-05-10 14:00] VITALS: BP 141/65; PULSE 63; RESP 18; TEMP 36.5; O2SAT 97
[2021-05-10] MEDS: Bumetanide 1 MG/4 ML VIAL IVPUSH (14:12)
--- NOTE | 2021-05-10 14:14 | PC.NURSE ---
patient a&ox3, abd firm/distended, teletypesetter monitor intact, no c/o pain or discomfort, vss, will continue to monitor.
--- NOTE | 2021-05-10 14:28 | P.HPHOSP_ITS ---
History of Present Illness Date of Service: 05/10/21 <Sun Culp NP - Last Filed: 05/10/21 17:08> Chief Complaint: Swelling <Sun Culp NP - Last Filed: 05/10/21 17:08> 70 year old women with hx of Renal disease presents from home with worsening anasarca. She was seen by her divider operator yesterday and had lab work done and today told to come to the ED due to abnormal labs. She reported that s he has had some increasing shortness of breath especially with activity and ambulation. She has a hx of ICD implantation and ESRD not on dialysis. She denied chest pain, fever, nausea, vomiting or diarrhea. Her creat was noted to be 9.16, AST/ALT 51, 34, BNP 550, CXR showing Subsegmental opacity at the left lung base which could represent atelectasis or pneumonia. Vital signs stable. She received a dose of Bumex and Procrit. She will be admitted for further management of ESRD. <Sun Culp NP - Last Filed: 05/10/21 17:08> Review of Systems Review of Systems: Denies any recent fever chills or decrease in appetite respiratory See HPI cardiovascular Denies chest pain, reports edema gastrointestinal denies any dysphagia abdominal pain nausea vomiting or diarrhea genitourinary denies any dysuria frequency or hematuria musculoskeletal denies any joint pain or swelling neuropsych denies any weakness or seizures all other systems reviewed are negative <Sun Culp NP - Last Filed: 05/10/21 17:08> [facility] Medical History: Medical History CAD (coronary artery disease) HTN (hypertension) Hyperlipidemia ICD (implantable cardioverter-defibrillator) in place Ischemic cardiomyopathy Paroxysmal atrial fibrillation Ventricular tachycardia <Sun Culp NP - Last Filed: 05/10/21 17:08> Family History: Family History Father No problems noted. Mother No problems noted. <Sun Culp NP - Last Filed: 05/10/21 17:08> Surgical History: Surgical History History of pubovaginal sling Hx of knee surgery <Sun Culp NP - Last Filed: 05/10/21 17:08> Social History: Social History Household Members: None Do you presently have visiting nurse or other home services: Yes ([employer]) Unable to assess alcohol history related to: Unknown Patient Tobacco Use Status: Tobacco use Unknown service: No Current occupational status: disabled <Sun Culp NP - Last Filed: 05/10/21 17:08> Meds Allergies/Adverse reactions: Allergies Allergy/AdvReac Type Severity Reaction Status Date / Time NSAIDS (Non-Steroidal Allergy Unknown Unknown Verified 05/09/21 14:01 Anti-Inflamma <Sun Culp NP - Last Filed: 05/10/21 17:08> Active Medications: Current Medications Pharmacy Consult (Consult Rx Perform Med Rec) 1 each MISCELLANE ONCE PRN PRN Reason: Consult order <Sun Culp NP - Last Filed: 05/10/21 17:08> Home medications: Home Medications Medication Instructions Recorded Confirmed Last Taken Type amlodipine 5 mg tablet 5 mg PO DAILY 04/20/20 05/10/21 05/10/21 History atorvastatin 80 mg tablet 80 mg PO BEDTIME 04/20/20 05/10/21 05/09/21 History cholecalciferol (vitamin D3) 25 25 mcg PO DAILY 04/20/20 05/10/21 05/10/21 History mcg (1,000 unit) capsule calcium carbonate 600 mg-vitamin 1 tab PO BEDTIME 05/10/21 05/10/21 05/09/21 History D3 10 mcg (400 unit) tablet loratadine 10 mg tablet 10 mg PO Q48H 05/10/21 05/10/21 05/10/21 History omeprazole 20 mg capsule,delayed 20 mg PO DAILY 05/10/21 05/10/21 05/10/21 History release <Sun Culp NP - Last Filed: 05/10/21 17:08> Physical Exam Vital Signs and Narrative: Vital Signs: Last Vital Signs Temp 97.7 F 05/10/21 14:00 Pulse 63 05/10/21 14:00 Resp 18 05/10/21 14:00 BP 141/65 H 05/10/21 14:00 Pulse Ox 97 05/10/21 14:00 BMI result Body Mass Index 34.2 <Sun Culp NP - Last Filed: 05/10/21 17:08> Appearing in no acute distress head is normocephalic atraumatic eyes pupils are PERRLA sclera is anicteric mouth throat mucous membranes are intact and moist neck is supple no lymphadenopathy, no JVD noted lung sounds are clear to auscultation heart regular rate rhythm, clear S1, S2 positive bowel sounds, abdomen is soft, nontender neuro patient is alert x3, no focal deficits <Sun Culp NP - Last Filed: 05/10/21 17:08> Results Labs CBC and Chem 7: : 05/14/21 06:36 05/14/21 06:36 <Sun Culp NP - Last Filed: 05/10/21 17:08> Labs: Laboratory Results - last 24 hr 05/10/21 05/10/21 05/10/21 12:42 12:42 12:42 MCV 88.7 MCH 27.1 MCHC 30.6 L RDW 15.0 Plt Count 152 L MPV 8.9 L Immature Gran % (Auto) 0.3 Neut % (Auto) 63.5 Lymph % (Auto) 22.7 Rusk % (Auto) 8.3 Eos % (Auto) 4.9 H Baso % (Auto) 0.3 Lymph # (Auto) 1.3 Rusk # (Auto) 0.5 Eos # (Auto) 0.3 Baso # (Auto) 0.0 Abs Immat Gran (auto) 0.02 Absolute Neuts (auto) 3.7 Absolute Nucleated RBC 0.000 Nucleated RBC % (auto) 0.0 PT 23.1 H INR 2.0 H APTT 45.7 H Anion Gap 14 Estim Creat Clear Calc 5.1 Estimated GFR 4 Random Glucose 97 Calcium 8.2 L Total Bilirubin 0.4 AST 51 H ALT 34 H Alkaline Phosphatase 103 Troponin I High Sens B-Natriuretic Peptide Total Protein 6.9 Albumin 2.7 L COVID-19 (MITZI) COVID-19 Clin Com 05/10/21 05/10/21 12:42 12:42 MCV MCH MCHC RDW Plt Count MPV Immature Gran % (Auto) Neut % (Auto) Lymph % (Auto) Rusk % (Auto) Eos % (Auto) Baso % (Auto) Lymph # (Auto) Rusk # (Auto) Eos # (Auto) Baso # (Auto) Abs Immat Gran (auto) Absolute Neuts (auto) Absolute Nucleated RBC Nucleated RBC % (auto) PT INR APTT Anion Gap Estim Creat Clear Calc Estimated GFR Random Glucose Calcium Total Bilirubin AST ALT Alkaline Phosphatase Troponin I High Sens 23.4 H B-Natriuretic Peptide 550 H Total Protein Albumin COVID-19 (MITZI) Negative COVID-19 Clin Com See Note <Sun Culp NP - Last Filed: 05/10/21 17:08> Imaging Radiologist's Impressions: Impressions Chest X-Ray 05/10/21 12:55 IMPRESSION: Subsegmental opacity at the left lung base which could represent atelectasis or pneumonia. Correlate clinically. <Sun Culp NP - Last Filed: 05/10/21 17:08> Assessment and Plan (1) Renal failure (ARF), acute on chronic: Status: Acute <Sun Culp NP - Last Filed: 05/10/21 17:08> (2) Anasarca: Status: Acute <Sun Culp NP - Last Filed: 05/10/21 17:08> (3) CHF (congestive heart failure): Status: Acute <Sun Culp NP - Last Filed: 05/10/21 17:08> 70 year old wmen with a hx of vtach and ICD implantation. She has had worsening renal function over the last year and will likely require dialysis ESRD, not on dialysis. Creat 9.16, potassium 5.0 Worsening renal function with anasarca may need cath placed and dialysis started Nephrology consult Acute CHF with Anasarca Bumex 1mg IV BID cardiology consultation daily weights, strict I&O Last Echo 03/21/21, will let cardio decide if repeat needed Transaminitis. Possibly secondary to fluid overload Diurese follow BNP and LFT's and us for large abdomen to r/o ascites Anemia Secondary to renal disease Paroxysmal atria fibrillation Continue amiodarone Eliquis carvedilol CAD statin and BB Attending Dr. Nunez Full code DVT prophylaxis with Eliquis <Sun Culp NP - Last Filed: 05/10/21 17:08> 70 year old wmen with a hx of vtach and ICD implantation. She has had worsening renal function over the last year and will likely require dialysis ESRD, not on dialysis. Creat 9.16, potassium 5.0 Worsening renal function with anasarca may need cath placed and dialysis started Nephrology consult Acute CHF with Anasarca Bumex 1mg IV BID cardiology consultation daily weights, strict I&O Last Echo 03/21/21, will let cardio decide if repeat needed Transaminitis. Possibly secondary to fluid overload Diurese follow BNP and LFT's and us for large abdomen to r/o ascites Anemia Secondary to renal disease Paroxysmal atria fibrillation Continue amiodarone Eliquis carvedilol CAD statin and BB Attending Dr. Nunez Full code DVT prophylaxis with Eliquis I personally examined patient and reviewed chart. Agree with history physical and assessment and plan as outlined by Ms. Culp <Edwin Nunez, DO - Last Filed: 05/20/21 18:06> Quality Stroke Does the patient have a stroke diagnosis?: No <Sun Culp NP - Last Filed: 05/10/21 17:08> VTE Prior VTE?: No <Sun Culp NP - Last Filed: 05/10/21 17:08> VTE Risk Level:: Medical - moderate - high <Sun Culp NP - Last Filed: 05/10/21 17:08> VTE Device Contraindication: N/A - Device Ordered <Sun Culp NP - Last Filed: 05/10/21 17:08> VTE Drug Contraindication: Treatment Not Indicated <Sun Culp NP - Last Filed: 05/10/21 17:08>
--- NOTE | 2021-05-10 15:24 | PHA.MEDREC ---
Pharmacy Consult ? Medication Reconciliation Pharmacy has completed the medication reconciliation. Per patient, told to hold torsemide. Daughter verified meds with me over the phone as well
[2021-05-10] MEDS: 0.9 % Sodium Chloride Flush 3 ML SYRINGE IVFLUSH (16:44)
[2021-05-10] MEDS: Loratadine 10 MG TABLET PO (16:44)
[2021-05-10 17:14] VITALS: BP 149/72; PULSE 69; RESP 20; TEMP 36.5; O2SAT 100
[2021-05-10 17:14] LABS: Iron 21 mcg/dL (30-160); Percent Iron Saturation 12 % (15-50); Total Iron Binding Capacity 175 mcg/dL (228-428); Unsaturated Iron Binding 154 ug/dL
[2021-05-10 17:34] LABS: Ferritin 201 ng/mL (10-250)
--- NOTE | 2021-05-10 18:22 | PC.NURSE ---
Pt is A&Ox3, No complaints of pain at this time. Pt uses home walker to ambulate. OOB to BR with standby assist. Awaiting bed assignment, will continue to monitor.
--- NOTE | 2021-05-10 20:34 | PM.CNNEP ---
History of Present Illness Reason for Consult Consult date: 05/10/21 Reason for consult: angel ckd 5 Chief Complaint Chief complaint: Anasarca Review of Systems Review of Systems Denies any recent fever chills or decrease in appetite respiratory See HPI cardiovascular Denies chest pain, reports edema gastrointestinal denies any dysphagia abdominal pain nausea vomiting or diarrhea genitourinary denies any dysuria frequency or hematuria musculoskeletal denies any joint pain or swelling neuropsych denies any weakness or seizures all other systems reviewed are negative Yes all other systems are reviewed and are negative Constitutional: Reports weight gain Cardiovascular: Reports no additional cardiovascular complaints Respiratory: Reports no additional respiratory complaints Gastrointestinal: Denies abdominal pain Reports system reviewed and no additional complaints, except as documented Hematologic/Lymphatic: Reports no additional hematologic/lymphatic complaints [facility] Past Medical History Medical History CAD (coronary artery disease) HTN (hypertension) Hyperlipidemia ICD (implantable cardioverter-defibrillator) in place Ischemic cardiomyopathy Paroxysmal atrial fibrillation Ventricular tachycardia Family History Family History Father No problems noted. Mother No problems noted. Surgical History Surgical History History of pubovaginal sling Hx of knee surgery Social History Social History Advance Directives: No Advance Directives Information Provided: Yes Meds Allergies Allergy/AdvReac Type Severity Reaction Status Date / Time NSAIDS (Non-Steroidal Allergy Unknown Unknown Verified 05/09/21 14:01 Anti-Inflamma Active Medications: Current Medications Acetaminophen (Acetaminophen 325 Mg Tablet) 650 mg PO Q6H PRN PRN Reason: Pain, Mild (Pain Scale 1-3) Amiodarone HCl (Amiodarone Hcl 200 Mg Tablet) 100 mg PO DAILY [facility] Amlodipine Besylate (Amlodipine Besylate 5 Mg Tablet) 5 mg PO DAILY [facility]; Protocol Atorvastatin Calcium (Atorvastatin Calcium 80 Mg Tablet) 80 mg PO BEDTIME JOHAN Bumetanide (Bumetanide 1 Mg/4 Ml Vial) 1 mg IVPUSH BID@0900,1700 [facility]; Protocol Calcium Carbonate/Cholecalciferol (Calcium + Vitamin D 250 Mg Tablet) 500 mg PO BEDTIME [facility] Carvedilol (Carvedilol 6.25 Mg Tablet) 6.25 mg PO BID [facility]; Protocol Ferric Sodium Gluconate Complex 125 mg/ Sodium Chloride 110 mls @ 100 mls/hr IV DAILY [facility] Stop: 05/13/21 10:05 Loratadine (Loratadine 10 Mg Tablet) 10 mg PO Q48H [facility] Last Admin: 05/10/21 16:44 Dose: 10 mg Documented by: Magnesium Oxide (Magnesium Oxide 400 Mg Tablet) 400 mg PO DAILY [facility] Omeprazole (Omeprazole 20 Mg Capsule.Dr) 20 mg PO DAILY [facility] Ondansetron HCl (Ondansetron Hcl 4 Mg/2 Ml Vial) 4 mg IVPUSH Q8H PRN PRN Reason: Nausea and Vomiting Pharmacy Consult (Consult Rx Perform Med Rec) 1 each MISCELLANE ONCE PRN PRN Reason: Consult order Sodium Chloride (0.9 % Sodium Chloride Flush 3 Ml Syringe) 3 ml IVFLUSH QSHIFT [facility] Last Admin: 05/10/21 16:44 Dose: 3 ml Documented by: Vitamin D (Cholecalciferol (Vitamin D3) 25 Mcg Tablet) 25 mcg PO DAILY [facility] Home Medications Medication Instructions Recorded Confirmed Last Taken Type amlodipine 5 mg tablet 5 mg PO DAILY 04/20/20 05/10/21 05/10/21 History atorvastatin 80 mg tablet 80 mg PO BEDTIME 04/20/20 05/10/21 05/09/21 History cholecalciferol (vitamin D3) 25 25 mcg PO DAILY 04/20/20 05/10/21 05/10/21 History mcg (1,000 unit) capsule torsemide 20 mg tablet 40 mg PO DAILY tab 05/09/21 05/10/21 Unknown History calcium carbonate 600 mg-vitamin 1 tab PO BEDTIME 05/10/21 05/10/21 05/09/21 History D3 10 mcg (400 unit) tablet loratadine 10 mg tablet 10 mg PO Q48H 05/10/21 05/10/21 05/10/21 History omeprazole 20 mg capsule,delayed 20 mg PO DAILY 05/10/21 05/10/21 05/10/21 History release Physical Exam Vital Signs: Last Vital Signs Temp 97.7 F 05/10/21 17:14 Pulse 69 05/10/21 17:14 Resp 20 05/10/21 17:14 BP 149/72 H 05/10/21 17:14 Pulse Ox 100 05/10/21 17:14 BMI result Body Mass Index 34.2 Const General: cooperative and no acute distress Orientation/consciousness: patient oriented x3 HENMT Head: Yes normal to inspection General nose exam: Normal external nose present Face and sinus: Yes normal facial exam Mouth: Normal oral and palatal mucosa present Throat: Yes posterior oropharynx normal Neck Neck: Yes normal visual inspection and Yes full ROM Chest Chest palpation & inspection: normal inspection of the chest Resp Effort & Inspection: normal respiratory effort Auscultation: clear to auscultation bilaterally Cardio Jugular venous distension: no JVD Rhythm: regular rhythm GI Inspection: Yes normal to inspection Palpation (GI): Soft to palpation, not firm and nontender Skin General skin exam: no rashes or lesions noted Neuro General: patient oriented x3 Extrem Other: 3 plus edema Results Lab Results Result Diagrams: 05/10/21 12:42 05/10/21 12:42 Lab results: Chemistry 05/10/21 12:42 Sodium 141 Potassium 5.0 Carbon Dioxide 19 L BUN 93 H Creatinine 9.16 H* Calcium 8.2 L Hematology 05/10/21 12:42 WBC 5.9 Hgb 8.9 L Plt Count 152 L Assessment and Plan (1) Renal failure (ARF), acute on chronic: Status: Acute likely acute recognition of Progressive CKD to ESRD plan dialysis PC thurs with dialysis (2) Anasarca: Status: Acute (3) CHF (congestive heart failure): Status: Acute (4) Anemia: Status: Acute IV iron and procrit ordered 70 year old wmen with a hx of vtach and ICD implantation. She has had worsening renal function over the last year and will likely require dialysis ESRD, not on dialysis. Creat 9.16, potassium 5.0 Worsening renal function with anasarca may need cath placed and dialysis started Nephrology consult Acute CHF with Anasarca Bumex 1mg IV BID cardiology consultation daily weights, strict I&O Last Echo 03/21/21, will let cardio decide if repeat needed Transaminitis. Possibly secondary to fluid overload Diurese follow BNP and LFT's and us for large abdomen to r/o ascites Anemia Secondary to renal disease Paroxysmal atria fibrillation Continue amiodarone Eliquis carvedilol CAD statin and BB Attending Dr. Nunez Full code DVT prophylaxis with Eliquis Procedures Date of Service Date of Service: 05/10/21
[2021-05-10 21:20] VITALS: BP 139/71; PULSE 64; RESP 24; O2SAT 96
[2021-05-10] MEDS: Atorvastatin Calcium 80 MG TABLET PO (21:21)
[2021-05-10] MEDS: carvediloL 6.25 MG TABLET PO (21:21)
[2021-05-10] MEDS: Calcium + Vitamin D 250 MG TABLET 500 MG PO (21:22)
--- NOTE | 2021-05-10 22:15 | P.CONNP_ITS ---
History of Present Illness Reason for Consult Consult date: 05/11/21 Chief Complaint Chief complaint: cardiomyopathy, JONATHAN Review of Systems Review of Systems Follow-up for anasarca, end-stage renal disease/ CKD stage 5 not on dialysis Feeling tired today Had some nausea and one episode of vomiting Yes all other systems are reviewed and are negative Constitutional: Reports weight gain Cardiovascular: Reports no additional cardiovascular complaints Respiratory: Reports no additional respiratory complaints Gastrointestinal: Denies abdominal pain Reports system reviewed and no additional complaints, except as documented Hematologic/Lymphatic: Reports no additional hematologic/lymphatic complaints [facility] Past Medical History Medical History CAD (coronary artery disease) HTN (hypertension) Hyperlipidemia ICD (implantable cardioverter-defibrillator) in place Ischemic cardiomyopathy Paroxysmal atrial fibrillation Ventricular tachycardia Family History Family History Father No problems noted. Mother No problems noted. Surgical History Surgical History History of pubovaginal sling Hx of knee surgery Social History Social History Advance Directives: No Advance Directives Information Provided: Yes service: No Current occupational status: disabled Meds Allergies Allergy/AdvReac Type Severity Reaction Status Date / Time NSAIDS (Non-Steroidal Allergy Unknown Unknown Verified 05/09/21 14:01 Anti-Inflamma Active Medications: Current Medications Acetaminophen (Acetaminophen 325 Mg Tablet) 650 mg PO Q6H PRN PRN Reason: Pain, Mild (Pain Scale 1-3) Amiodarone HCl (Amiodarone Hcl 200 Mg Tablet) 100 mg PO DAILY [facility] Amlodipine Besylate (Amlodipine Besylate 5 Mg Tablet) 5 mg PO DAILY [facility]; Protocol Atorvastatin Calcium (Atorvastatin Calcium 80 Mg Tablet) 80 mg PO BEDTIME [facility] Last Admin: 05/10/21 21:21 Dose: 80 mg Documented by: Bumetanide (Bumetanide 1 Mg/4 Ml Vial) 1 mg IVPUSH BID@0900,1700 [facility]; Protocol Calcium Carbonate/Cholecalciferol (Calcium + Vitamin D 250 Mg Tablet) 500 mg PO BEDTIME [facility] Last Admin: 05/10/21 21:22 Dose: 500 mg Documented by: Carvedilol (Carvedilol 6.25 Mg Tablet) 6.25 mg PO BID [facility]; Protocol Last Admin: 05/10/21 21:21 Dose: 6.25 mg Documented by: Ferric Sodium Gluconate Complex 125 mg/ Sodium Chloride 110 mls @ 100 mls/hr IV DAILY [facility] Stop: 05/13/21 10:05 Loratadine (Loratadine 10 Mg Tablet) 10 mg PO Q48H [facility] Last Admin: 05/10/21 16:44 Dose: 10 mg Documented by: Magnesium Oxide (Magnesium Oxide 400 Mg Tablet) 400 mg PO DAILY [facility] Omeprazole (Omeprazole 20 Mg Capsule.Dr) 20 mg PO DAILY [facility] Ondansetron HCl (Ondansetron Hcl 4 Mg/2 Ml Vial) 4 mg IVPUSH Q8H PRN PRN Reason: Nausea and Vomiting Pharmacy Consult (Consult Rx Perform Med Rec) 1 each MISCELLANE ONCE PRN PRN Reason: Consult order Sodium Chloride (0.9 % Sodium Chloride Flush 3 Ml Syringe) 3 ml IVFLUSH QSHIFT [facility] Last Admin: 05/10/21 16:44 Dose: 3 ml Documented by: Vitamin D (Cholecalciferol (Vitamin D3) 25 Mcg Tablet) 25 mcg PO DAILY [facility] Home Medications Medication Instructions Recorded Confirmed Last Taken Type amlodipine 5 mg tablet 5 mg PO DAILY 04/20/20 05/10/21 05/10/21 History atorvastatin 80 mg tablet 80 mg PO BEDTIME 04/20/20 05/10/21 05/09/21 History cholecalciferol (vitamin D3) 25 25 mcg PO DAILY 04/20/20 05/10/21 05/10/21 History mcg (1,000 unit) capsule torsemide 20 mg tablet 40 mg PO DAILY tab 05/09/21 05/10/21 Unknown History calcium carbonate 600 mg-vitamin 1 tab PO BEDTIME 05/10/21 05/10/21 05/09/21 History D3 10 mcg (400 unit) tablet loratadine 10 mg tablet 10 mg PO Q48H 05/10/21 05/10/21 05/10/21 History omeprazole 20 mg capsule,delayed 20 mg PO DAILY 05/10/21 05/10/21 05/10/21 History release Physical Exam Vital Signs: Last Vital Signs Temp 97.7 F 05/10/21 17:14 Pulse 64 05/10/21 21:20 Resp 24 H 05/10/21 21:20 BP 139/71 05/10/21 21:20 Pulse Ox 96 05/10/21 21:20 BMI result Body Mass Index 34.2 Const General: cooperative and no acute distress Orientation/consciousness: patient oriented x3 HENMT Head: Yes normal to inspection General nose exam: Normal external nose present Face and sinus: Yes normal facial exam Mouth: Normal oral and palatal mucosa present Throat: Yes posterior oropharynx normal Neck Neck: Yes normal visual inspection and Yes full ROM Chest Chest palpation & inspection: normal inspection of the chest Resp Effort & Inspection: normal respiratory effort Auscultation: clear to auscultation bilaterally Cardio Jugular venous distension: no JVD Rhythm: regular rhythm GI Inspection: Yes normal to inspection Palpation (GI): Soft to palpation, not firm and nontender Skin General skin exam: no rashes or lesions noted Neuro General: patient oriented x3 Extrem Other: 3 plus edema Results Lab Results Result Diagrams: 05/12/21 06:54 05/12/21 06:54 Lab results: Chemistry 05/10/21 12:42 Sodium 141 Potassium 5.0 Carbon Dioxide 19 L BUN 93 H Creatinine 9.16 H* Calcium 8.2 L Hematology 05/10/21 12:42 WBC 5.9 Hgb 8.9 L Plt Count 152 L Assessment and Plan (1) Anemia: Status: Acute (2) Renal failure (ARF), acute on chronic: Status: Acute (3) CHF (congestive heart failure): Status: Acute 70 year old wmen with a hx of vtach and ICD implantation. She has had worsening renal function over the last year and will likely require dialysis ESRD, not on dialysis. Creat 9.33, potassium 4.9 Worsening renal function with anasarca Nephrology consult Hold Eliquis for cath placement 05/12/21 and dialysis Acute CHF with Anasarca Bumex 2mg IV BID and Metolazone 5 mg PO X1 cardiology following, recommended adding hydralazine 25 mg t.i.d. daily weights, strict I&O Echocardiogram today showing EF of 45-50% Transaminitis. Possibly secondary to fluid overload Diurese follow BNP and LFT's and us for large abdomen to r/o ascites Anemia Secondary to renal disease IV iron and Procrit added as per Nephrology recommendation Paroxysmal atria fibrillation Continue amiodarone Hold Eliquis carvedilol CAD statin and BB Attending Dr. Hopper Full code DVT prophylaxis with Eliquis? Procedures Date of Service Date of Service: 05/11/21
[2021-05-11] VITALS (9 sets, daily range): BP systolic 118–156; BP diastolic 66–77; PULSE 62–73; RESP 16–24; TEMP 36.5–36.8; O2SAT 96–98
--- NOTE | 2021-05-11 05:51 | PC.NURSE ---
Uneventful shift, pt slept majority of night, ambulated to and from bathroom x 2 w/ SBA and use of own rolling walker. Consistently attached to monitoring tech. Stable vitals. Pt w/ no pain, denies complaints. Plan per hospitalist to initiate dialysis today
[2021-05-11 07:03] LABS: MANUAL DIFF FLAG NO
[2021-05-11 07:07] LABS: Basophils Percent Auto 0.5 % (0-2); Eosinophils Absolute Auto 0.2 X10*3/uL (0.0-0.4); Eosinophils Percent Auto 4.9 % (0-4); Hematocrit 26.7 % (37.0-47.0); Imm Gran Abs Auto 0.01 X10*3/uL (0.00-0.03); Imm Gran Pct Auto 0.2 % (0.0-0.4); Lymphocytes Absolute Auto 1.2 X10*3/uL (1.2-4.9); Lymphocytes Percent Auto 27.2 % (20-40); Mean Corpuscular Volume 90.2 fL (80.0-98.0); Mean Platelet Volume 9.3 fL (9.4-12.3); Monocytes Absolute Auto 0.5 X10*3/uL (0.1-1.2); Monocytes Percent Auto 11.9 % (2-11); Neutrophils Absolute Auto 2.4 x10*3/uL (2.0-8.3); Neutrophils Percent Auto 55.3 % (45-73); Platelet Count 121 X10*3/uL (160-400); Red Blood Count 2.96 X10*6/uL (4.20-5.50); Red Cell Distribution Width 15.1 % (11.0-16.0); White Blood Count 4.3 X10*3/uL (4.8-10.8)
[2021-05-11 07:12] LABS: INTERNATIONAL NORM RATIO 1.8 (0.9-1.1); Prothrombin Time 20.3 SEC (9.9-13.0)
[2021-05-11 07:20] LABS: Anion Gap 14 (12-20); Blood Urea Nitrogen 94 mg/dL (9-16); Calcium 8.1 mg/dL (8.4-10.2); Carbon Dioxide 20 mmol/L (22-29); Chloride 114 mmol/L (96-108); Estimated Glomerular Filt Rate 4; Glucose Random 69 mg/dL (60-115); Potassium 4.9 mmol/L (3.3-5.1); Sodium 143 mmol/L (135-145)
[2021-05-11] MEDS: Omeprazole 20 MG CAPSULE.DR PO (08:22)
[2021-05-11] MEDS: Amiodarone HCL 200 MG TABLET 100 MG PO (08:22)
[2021-05-11] MEDS: Magnesium Oxide 400 MG TABLET PO (08:22)
[2021-05-11] MEDS: Cholecalciferol (Vitamin D3) 25 MCG TABLET PO (08:22)
[2021-05-11] MEDS: carvediloL 6.25 MG TABLET PO ×2 (08:25→21:34)
[2021-05-11] MEDS: amLODIPine Besylate 5 MG TABLET PO (08:26)
[2021-05-11] MEDS: 0.9 % Sodium Chloride Flush 3 ML SYRINGE IVFLUSH ×2 (08:26→15:18)
--- NOTE | 2021-05-11 08:31 | PC.NURSE ---
Pt A&Ox3, OOB to BR independently, medicated as per MAR orders, no complaintsof pain, awaiting bed assignment. Will continue to monitor.
[2021-05-11] MEDS: Sodium Ferric Gluconat/Sucrose 125 MG in 0.9 % Sodium Chloride 100 ML 100 MG IV (08:43)
--- NOTE | 2021-05-11 09:16 | PM.CNCAR ---
History of Present Illness History of Present Illness Date of Service: 05/11/21 Requesting physician: Sun Culp Chief complaint: cardiomyopathy, JONATHAN Narrative: 70-year-old female who has background history of myocardial infarction and ischemic cardiomyopathy with last ejection fraction of 40-45%. She also has kidney disease. She was on torsemide recently and was seen in the office by Antonieta Barrios. At that time she was complaining of shortness of breath as well as lower extremity edema she was sent for blood workup which showed significant kidney injury with creatinine of 9. She was advised to go to the emergency department and was admitted. She has been seen by Nephrology and there is plan to do dialysis on her. Her Eliquis has been held. She also is getting IV iron infusion. She is denying orthopnea or PND but does get shortness of breath when she ambulates. She is anemic. [facility] Past Medical History Medical History CAD (coronary artery disease) HTN (hypertension) Hyperlipidemia ICD (implantable cardioverter-defibrillator) in place Ischemic cardiomyopathy Paroxysmal atrial fibrillation Ventricular tachycardia Family History Family History Father No problems noted. Mother No problems noted. Surgical History Surgical History History of pubovaginal sling Hx of knee surgery Social History Social History Advance Directives: No Advance Directives Information Provided: Yes Meds Allergies Allergy/AdvReac Type Severity Reaction Status Date / Time NSAIDS (Non-Steroidal Allergy Unknown Unknown Verified 05/09/21 14:01 Anti-Inflamma Active Medications: Current Medications Acetaminophen (Acetaminophen 325 Mg Tablet) 650 mg PO Q6H PRN PRN Reason: Pain, Mild (Pain Scale 1-3) Amiodarone HCl (Amiodarone Hcl 200 Mg Tablet) 100 mg PO DAILY [facility] Last Admin: 05/11/21 08:22 Dose: 100 mg Documented by: Amlodipine Besylate (Amlodipine Besylate 5 Mg Tablet) 5 mg PO DAILY [facility]; Protocol Last Admin: 05/11/21 08:26 Dose: 5 mg Documented by: Atorvastatin Calcium (Atorvastatin Calcium 80 Mg Tablet) 80 mg PO BEDTIME [facility] Last Admin: 05/10/21 21:21 Dose: 80 mg Documented by: Bumetanide (Bumetanide 1 Mg/4 Ml Vial) 1 mg IVPUSH BID@0900,1700 [facility]; Protocol Calcium Carbonate/Cholecalciferol (Calcium + Vitamin D 250 Mg Tablet) 500 mg PO BEDTIME [facility] Last Admin: 05/10/21 21:22 Dose: 500 mg Documented by: Carvedilol (Carvedilol 6.25 Mg Tablet) 6.25 mg PO BID [facility]; Protocol Last Admin: 05/11/21 08:25 Dose: 6.25 mg Documented by: Ferric Sodium Gluconate Complex 125 mg/ Sodium Chloride 110 mls @ 100 mls/hr IV DAILY [facility] Stop: 05/13/21 10:05 Last Admin: 05/11/21 08:43 Dose: 100 mls/hr Documented by: Loratadine (Loratadine 10 Mg Tablet) 10 mg PO Q48H [facility] Last Admin: 05/10/21 16:44 Dose: 10 mg Documented by: Magnesium Oxide (Magnesium Oxide 400 Mg Tablet) 400 mg PO DAILY [facility] Last Admin: 05/11/21 08:22 Dose: 400 mg Documented by: Omeprazole (Omeprazole 20 Mg Capsule.Dr) 20 mg PO DAILY [facility] Last Admin: 05/11/21 08:22 Dose: 20 mg Documented by: Ondansetron HCl (Ondansetron Hcl 4 Mg/2 Ml Vial) 4 mg IVPUSH Q8H PRN PRN Reason: Nausea and Vomiting Pharmacy Consult (Consult Rx Perform Med Rec) 1 each MISCELLANE ONCE PRN PRN Reason: Consult order Sodium Chloride (0.9 % Sodium Chloride Flush 3 Ml Syringe) 3 ml IVFLUSH QSHIFT [facility] Last Admin: 05/11/21 08:26 Dose: 3 ml Documented by: Vitamin D (Cholecalciferol (Vitamin D3) 25 Mcg Tablet) 25 mcg PO DAILY [facility] Last Admin: 05/11/21 08:22 Dose: 25 mcg Documented by: Home Medications Medication Instructions Recorded Confirmed Last Taken Type amlodipine 5 mg tablet 5 mg PO DAILY 04/20/20 05/10/21 05/10/21 History atorvastatin 80 mg tablet 80 mg PO BEDTIME 04/20/20 05/10/21 05/09/21 History cholecalciferol (vitamin D3) 25 25 mcg PO DAILY 04/20/20 05/10/21 05/10/21 History mcg (1,000 unit) capsule torsemide 20 mg tablet 40 mg PO DAILY tab 05/09/21 05/10/21 Unknown History calcium carbonate 600 mg-vitamin 1 tab PO BEDTIME 05/10/21 05/10/21 05/09/21 History D3 10 mcg (400 unit) tablet loratadine 10 mg tablet 10 mg PO Q48H 05/10/21 05/10/21 05/10/21 History omeprazole 20 mg capsule,delayed 20 mg PO DAILY 05/10/21 05/10/21 05/10/21 History release Physical Exam Vital Signs: Vital Signs: Last Vital Signs Temp 97.8 F 05/11/21 05:50 Pulse 68 05/11/21 08:26 Resp 16 05/11/21 05:50 BP 156/77 H 05/11/21 08:25 Pulse Ox 98 05/11/21 05:50 BMI result Body Mass Index 34.2 GENERAL APPEARANCE: in no acute distress, pleasant. NECK: no carotid bruit, + jugular venous distention. SKIN: no suspicious lesions, warm and dry. HEART: no murmurs, regular rate and rhythm. LUNGS: clear to auscultation bilaterally. ABDOMEN: soft, nontender. EXTREMITIES: 1+ edema. PERIPHERAL PULSES: equal. NEUROLOGIC: No gross deficits, AAO X 3 Objective Labs and Meds Result diagrams: 05/11/21 06:26 05/11/21 06:26 Lab results: Laboratory Results - last 24 hr 05/10/21 05/10/21 05/10/21 12:42 12:42 12:42 WBC 5.9 RBC 3.28 L Hgb 8.9 L Hct 29.1 L MCV 88.7 MCH 27.1 MCHC 30.6 L RDW 15.0 Plt Count 152 L MPV 8.9 L Immature Gran % (Auto) 0.3 Neut % (Auto) 63.5 Lymph % (Auto) 22.7 [place] % (Auto) 8.3 Eos % (Auto) 4.9 H Baso % (Auto) 0.3 Lymph # (Auto) 1.3 [place] # (Auto) 0.5 Eos # (Auto) 0.3 Baso # (Auto) 0.0 Abs Immat Gran (auto) 0.02 Absolute Neuts (auto) 3.7 Absolute Nucleated RBC 0.000 Nucleated RBC % (auto) 0.0 PT 23.1 H INR 2.0 H APTT 45.7 H Sodium 141 Potassium 5.0 Chloride 113 H Carbon Dioxide 19 L Anion Gap 14 BUN 93 H Creatinine 9.16 H* Estim Creat Clear Calc 5.1 Estimated GFR 4 Random Glucose 97 Calcium 8.2 L Iron TIBC % Saturation Unsat Iron Binding Ferritin Total Bilirubin 0.4 AST 51 H ALT 34 H Alkaline Phosphatase 103 Troponin I High Sens B-Natriuretic Peptide Total Protein 6.9 Albumin 2.7 L COVID-19 (MITZI) COVID-19 Clin Com 05/10/21 05/10/21 05/10/21 12:42 12:42 16:42 WBC RBC Hgb Hct MCV MCH MCHC RDW Plt Count MPV Immature Gran % (Auto) Neut % (Auto) Lymph % (Auto) [place] % (Auto) Eos % (Auto) Baso % (Auto) Lymph # (Auto) [place] # (Auto) Eos # (Auto) Baso # (Auto) Abs Immat Gran (auto) Absolute Neuts (auto) Absolute Nucleated RBC Nucleated RBC % (auto) PT INR APTT Sodium Potassium Chloride Carbon Dioxide Anion Gap BUN Creatinine Estim Creat Clear Calc Estimated GFR Random Glucose Calcium Iron 21 L TIBC 175 L % Saturation 12 L Unsat Iron Binding 154 Ferritin 201 Total Bilirubin AST ALT Alkaline Phosphatase Troponin I High Sens 23.4 H B-Natriuretic Peptide 550 H Total Protein Albumin COVID-19 (MITZI) Negative COVID-19 Clin Com See Note 05/11/21 05/11/21 05/11/21 06:26 06:26 06:26 WBC 4.3 L RBC 2.96 L Hgb 8.0 L Hct 26.7 L MCV 90.2 MCH 27.0 MCHC 30.0 L RDW 15.1 Plt Count 121 L MPV 9.3 L Immature Gran % (Auto) 0.2 Neut % (Auto) 55.3 Lymph % (Auto) 27.2 [place] % (Auto) 11.9 H Eos % (Auto) 4.9 H Baso % (Auto) 0.5 Lymph # (Auto) 1.2 [place] # (Auto) 0.5 Eos # (Auto) 0.2 Baso # (Auto) 0.0 Abs Immat Gran (auto) 0.01 Absolute Neuts (auto) 2.4 Absolute Nucleated RBC 0.000 Nucleated RBC % (auto) 0.0 PT 20.3 H INR 1.8 H APTT Sodium 143 Potassium 4.9 Chloride 114 H Carbon Dioxide 20 L Anion Gap 14 BUN 94 H Creatinine 9.33 H* Estim Creat Clear Calc 5.0 Estimated GFR 4 Random Glucose 69 Calcium 8.1 L Iron TIBC % Saturation Unsat Iron Binding Ferritin Total Bilirubin AST ALT Alkaline Phosphatase Troponin I High Sens B-Natriuretic Peptide Total Protein Albumin COVID-19 (MITZI) COVID-19 Clin Com Imaging Radiologist's impression: Impressions Chest X-Ray 05/10/21 12:55 IMPRESSION: Subsegmental opacity at the left lung base which could represent atelectasis or pneumonia. Correlate clinically. Abdomen Ultrasound 05/10/21 15:56 IMPRESSION: Moderate ascites is present. Assessment and Plan (1) IgAN (IgA nephropathy): Status: Acute (2) Anemia: Status: Acute (3) CHF (congestive heart failure): Status: Acute (4) Renal failure (ARF), acute on chronic: Status: Acute 70-year-old female who is presenting for acute renal failure. She has background of ischemic cardiomyopathy and had previous ICD placement. Repeat echocardiogram is showing ejection fraction 45-50% but the LV cavity appears dilated. Think we should add hydralazine 25 mg 3 times a day to her regimen. Nephrology is following her closely and there is a plan to start hemodialysis. Hold Eliquis in the meantime. Blood pressure is elevated I think hydralazine may help reduce afterload and improved for flow. If she tolerates that and I think we can add low-dose nitrates for that too. I think carvedilol should not be titrated right now. We will follow along with you. Thank you for allowing me to participate in the care of your patient. Please feel free to contact me if you have any questions. Procedures Date of Service Date of Service: 05/11/21
--- NOTE | 2021-05-11 09:41 | PC.NURSE ---
Pt had an episode of choking followed by vomiting while eating breakfast. Vomiting was clear mucus. CORPORATE LOGISTICS MANAGER Sun made aware of episode. Pt VSS during episode. Pt did admit to nausea prior to eating. Will continue to monitor.
--- NOTE | 2021-05-11 10:00 | CA_ITS ---
Transthoracic Echocardiogram Patient (Last, First, Middle): Gabriel Beck, Gender: Female Date of : 1950 Age: 70 Procedure Date: 05/11/2021 Procedure Type: Transthoracic Echocardiogram Location: ER Height: 152.4 cm Weight: 77.11 kg BSA: 1.74 m2 Heart Rate: bpm BP: 156 / 77 mmHg Granular Operator: Referring MD: Yehuda Eastman MD Symptoms: CHF Study Quality: Good Conclusions: - Moderately increased left ventricular cavity size. There is mildly increased left ventricular wall thickness. The left ventricular systolic function is borderline reduced. The visually estimated ejection fraction is between 45-50%. - Normal right ventricular cavity size and systolic function. There is a pacemaker wire seen in the right ventricle. - The inferior vena cava is normal in size and collapses greater than 50% with inspiration. - There is a small to moderate loculated pericardial effusion overlying the left ventricle. Findings Left Ventricle Moderately increased left ventricular cavity size. There is mildly increased left ventricular wall thickness. The left ventricular systolic function is borderline reduced. The visually estimated ejection fraction is between 45 50%. There is evidence of regional wall motion abnormalities. Abnormal diastolic function is noted. Spectral Doppler is indicative of an impaired relaxation filling pattern. E/E prime ratio is >15, consistent with elevated filling pressures. Wall Motion Rest Echo Findings The basal inferior and basal inferolateral segments are akinetic. Right Ventricle Normal right ventricular cavity size and systolic function. There is a pacemaker wire seen in the right ventricle. Tricuspid Valve Normal tricuspid valve structure. There is trace tricuspid valve regurgitation. Normal right atrial pressure. There is no evidence of pulmonary hypertension. Venous The inferior vena cava is normal in size and collapses greater than 50% with inspiration. Pericardium/Pleural There is a small loculated pericardial effusion overlying the left ventricle. Prior Study Comparison Changes noted compared to prior study dated: 03/21/2021. LV cavity is dilated, systolic function is similar to before. small to moderate loculated effusion posterior to the LV. Measurements 2D Linear Measurements IVSd: 0.89 0.6-0.9/0.6-1.0 cm LVIDd: 6.17 3.9-5.3/4.2-5.9 cm LVIDd Index: 3.55 2.4-3.2/2.2-3.1 cm/m2 LVIDs: 5.06 2.0-3.6 cm LVPWd: 0.95 0.7-1.1 cm LV Mass: 289.60 67-162/88-224 g LV Mass Index: 166.44 43-95/49-115 g/m2 2D Systolic Function EF 4C: 46.00 >55% EF 2C: 41.00 >55% EF BiP: 43.50 >55% Mitral Valve MV Pk E: 1.14 MV PK A: 1.44 MV Decel Time: 189.00 E/A: 0.80 E'Lateral: 3.70 E'Medial: 4.13 E/E' Med: 27.60 E/E' Lat: 30.80 PHT: 55.00 MVA PHT: 4.00 Decel [place]: 6.06 Diastolic Function MV Pk E: 1.14 MV Pk A: 1.44 E/A: 0.80 E'Medial: 4.13 E/E' Med: 27.60 E' Laterial: 3.70 E/E' Lat: 30.80 Right Ventricle TAPSE (mm): 2.85 TVS' Ze: 13.60 Tricuspid Valve TR Pk Ze: 2.74 TR Pk Grad: 30.00 Updated in Other Vendor System with Status of Final Yehuda Eastman MD electronically signed on 05/11/2021 10:40:11 AM with status of Final
--- NOTE | 2021-05-11 10:04 | P.PNIM_ITS ---
Subjective Subjective Date of Service: 05/11/21 Review of Systems Follow-up for thelma, end-stage renal disease/ CKD stage 5 not on dialysis Feeling tired today Had some nausea and one episode of vomiting Physical Exam Vital Signs: Vital Signs: Last Vital Signs Temp 97.8 F 05/11/21 05:50 Pulse 68 05/11/21 08:26 Resp 16 05/11/21 05:50 BP 156/77 H 05/11/21 08:25 Pulse Ox 98 05/11/21 05:50 BMI result Body Mass Index 34.2 Appearing in no acute distress lung sounds are clear to auscultation heart regular rate rhythm, clear S1, S2 positive bowel sounds, abdomen is soft, nontender neuro patient is alert x3, no focal deficits Objective Data Active Medications Acetaminophen (Acetaminophen 325 Mg Tablet) 650 mg PO Q6H PRN PRN Reason: Pain, Mild (Pain Scale 1-3) Amiodarone HCl (Amiodarone Hcl 200 Mg Tablet) 100 mg PO DAILY [facility] Last Admin: 05/11/21 08:22 Dose: 100 mg Documented by: LESLY Amlodipine Besylate (Amlodipine Besylate 5 Mg Tablet) 5 mg PO DAILY [facility]; Protocol Last Admin: 05/11/21 08:26 Dose: 5 mg Documented by: LESLY Atorvastatin Calcium (Atorvastatin Calcium 80 Mg Tablet) 80 mg PO BEDTIME [facility] Last Admin: 05/10/21 21:21 Dose: 80 mg Documented by: SHAHLA Bumetanide (Bumetanide 1 Mg/4 Ml Vial) 1 mg IVPUSH BID@0900,1700 [facility]; Protocol Calcium Carbonate/Cholecalciferol (Calcium + Vitamin D 250 Mg Tablet) 500 mg PO BEDTIME [facility] Last Admin: 05/10/21 21:22 Dose: 500 mg Documented by: SHAHLA Carvedilol (Carvedilol 6.25 Mg Tablet) 6.25 mg PO BID [facility]; Protocol Last Admin: 05/11/21 08:25 Dose: 6.25 mg Documented by: LESLY Ferric Sodium Gluconate Complex 125 mg/ Sodium Chloride 110 mls @ 100 mls/hr IV DAILY [facility] Stop: 05/13/21 10:05 Last Admin: 05/11/21 08:43 Dose: 100 mls/hr Documented by: LESLY Loratadine (Loratadine 10 Mg Tablet) 10 mg PO Q48H [facility] Last Admin: 05/10/21 16:44 Dose: 10 mg Documented by: FARHANA Magnesium Oxide (Magnesium Oxide 400 Mg Tablet) 400 mg PO DAILY [facility] Last Admin: 05/11/21 08:22 Dose: 400 mg Documented by: LESLY Omeprazole (Omeprazole 20 Mg Capsule.Dr) 20 mg PO DAILY [facility] Last Admin: 05/11/21 08:22 Dose: 20 mg Documented by: LESLY Ondansetron HCl (Ondansetron Hcl 4 Mg/2 Ml Vial) 4 mg IVPUSH Q8H PRN PRN Reason: Nausea and Vomiting Pharmacy Consult (Consult Rx Perform Med Rec) 1 each MISCELLANE ONCE PRN PRN Reason: Consult order Sodium Chloride (0.9 % Sodium Chloride Flush 3 Ml Syringe) 3 ml IVFLUSH QSHIFT [facility] Last Admin: 05/11/21 08:26 Dose: 3 ml Documented by: LESLY Vitamin D (Cholecalciferol (Vitamin D3) 25 Mcg Tablet) 25 mcg PO DAILY [facility] Last Admin: 05/11/21 08:22 Dose: 25 mcg Documented by: LESLY Labs CBC & Chem 7: 05/11/21 06:26 05/11/21 06:26 Labs: Laboratory Results - last 24 hr 05/10/21 05/10/21 05/10/21 12:42 12:42 12:42 MCV 88.7 MCH 27.1 MCHC 30.6 L RDW 15.0 Plt Count 152 L MPV 8.9 L Immature Gran % (Auto) 0.3 Neut % (Auto) 63.5 Lymph % (Auto) 22.7 [place] % (Auto) 8.3 Eos % (Auto) 4.9 H Baso % (Auto) 0.3 Lymph # (Auto) 1.3 [place] # (Auto) 0.5 Eos # (Auto) 0.3 Baso # (Auto) 0.0 Abs Immat Gran (auto) 0.02 Absolute Neuts (auto) 3.7 Absolute Nucleated RBC 0.000 Nucleated RBC % (auto) 0.0 PT 23.1 H INR 2.0 H APTT 45.7 H Anion Gap 14 Estim Creat Clear Calc 5.1 Estimated GFR 4 Random Glucose 97 Calcium 8.2 L Iron TIBC % Saturation Unsat Iron Binding Ferritin Total Bilirubin 0.4 AST 51 H ALT 34 H Alkaline Phosphatase 103 Troponin I High Sens B-Natriuretic Peptide Total Protein 6.9 Albumin 2.7 L COVID-19 ([facility]ZI) COVID-19 Clin Com 05/10/21 05/10/21 05/10/21 12:42 12:42 16:42 MCV MCH MCHC RDW Plt Count MPV Immature Gran % (Auto) Neut % (Auto) Lymph % (Auto) [place] % (Auto) Eos % (Auto) Baso % (Auto) Lymph # (Auto) [place] # (Auto) Eos # (Auto) Baso # (Auto) Abs Immat Gran (auto) Absolute Neuts (auto) Absolute Nucleated RBC Nucleated RBC % (auto) PT INR APTT Anion Gap Estim Creat Clear Calc Estimated GFR Random Glucose Calcium Iron 21 L TIBC 175 L % Saturation 12 L Unsat Iron Binding 154 Ferritin 201 Total Bilirubin AST ALT Alkaline Phosphatase Troponin I High Sens 23.4 H B-Natriuretic Peptide 550 H Total Protein Albumin COVID-19 (MITZI) Negative COVID-19 Clin Com See Note 05/11/21 05/11/21 05/11/21 06:26 06:26 06:26 MCV 90.2 MCH 27.0 MCHC 30.0 L RDW 15.1 Plt Count 121 L MPV 9.3 L Immature Gran % (Auto) 0.2 Neut % (Auto) 55.3 Lymph % (Auto) 27.2 [place] % (Auto) 11.9 H Eos % (Auto) 4.9 H Baso % (Auto) 0.5 Lymph # (Auto) 1.2 [place] # (Auto) 0.5 Eos # (Auto) 0.2 Baso # (Auto) 0.0 Abs Immat Gran (auto) 0.01 Absolute Neuts (auto) 2.4 Absolute Nucleated RBC 0.000 Nucleated RBC % (auto) 0.0 PT 20.3 H INR 1.8 H APTT Anion Gap 14 Estim Creat Clear Calc 5.0 Estimated GFR 4 Random Glucose 69 Calcium 8.1 L Iron TIBC % Saturation Unsat Iron Binding Ferritin Total Bilirubin AST ALT Alkaline Phosphatase Troponin I High Sens B-Natriuretic Peptide Total Protein Albumin COVID-19 ([facility]ZI) COVID-19 Clin Com Assessment and Plan (1) Anemia: Status: Acute (2) Renal failure (ARF), acute on chronic: Status: Acute (3) CHF (congestive heart failure): Status: Acute Assessment and Plan: 70 year old wmen with a hx of vtach and ICD implantation. She has had worsening renal function over the last year and will likely require dialysis ESRD, not on dialysis. Creat 9.33, potassium 4.9 Worsening renal function with anasarca Nephrology consult Hold Eliquis for cath placement 05/12/21 and dialysis Acute CHF with Anasarca Bumex 1mg IV BID cardiology following, recommended adding hydralazine 25 mg t.i.d. daily weights, strict I&O Echocardiogram today showing EF of 45-50% Transaminitis. Possibly secondary to fluid overload Diurese follow BNP and LFT's and us for large abdomen to r/o ascites Anemia Secondary to renal disease IV iron and Procrit added as per Nephrology recommendation Paroxysmal atria fibrillation Continue amiodarone Hold Eliquis carvedilol CAD statin and BB Attending Dr. Hopper Full code DVT prophylaxis with Eliquis? Quality Stroke Does the patient have a stroke diagnosis?: No VTE Prior VTE?: No VTE Risk Level:: Medical - moderate - high VTE Device Contraindication: N/A - Device Ordered VTE Drug Contraindication: Treatment Not Indicated
--- NOTE | 2021-05-11 10:24 | P.CONNP_ITS ---
History of Present Illness Reason for Consult Consult date: 05/11/21 Reason for consult: ESRD Chief Complaint Chief complaint: Anasarca PMFSH Past Medical History Medical History CAD (coronary artery disease) HTN (hypertension) Hyperlipidemia ICD (implantable cardioverter-defibrillator) in place Ischemic cardiomyopathy Paroxysmal atrial fibrillation Ventricular tachycardia Family History Family History Father No problems noted. Mother No problems noted. Surgical History Surgical History History of pubovaginal sling Hx of knee surgery Social History Social History Advance Directives: No Advance Directives Information Provided: Yes Meds Allergies Allergy/AdvReac Type Severity Reaction Status Date / Time NSAIDS (Non-Steroidal Allergy Unknown Unknown Verified 05/09/21 14:01 Anti-Inflamma Active Medications: Current Medications Acetaminophen (Acetaminophen 325 Mg Tablet) 650 mg PO Q6H PRN PRN Reason: Pain, Mild (Pain Scale 1-3) Amiodarone HCl (Amiodarone Hcl 200 Mg Tablet) 100 mg PO DAILY [facility] Last Admin: 05/11/21 08:22 Dose: 100 mg Documented by: Amlodipine Besylate (Amlodipine Besylate 5 Mg Tablet) 5 mg PO DAILY [facility]; Protocol Last Admin: 05/11/21 08:26 Dose: 5 mg Documented by: Atorvastatin Calcium (Atorvastatin Calcium 80 Mg Tablet) 80 mg PO BEDTIME JOHAN Last Admin: 05/10/21 21:21 Dose: 80 mg Documented by: Bumetanide (Bumetanide 1 Mg/4 Ml Vial) 1 mg IVPUSH BID@0900,1700 [facility]; Protocol Calcium Carbonate/Cholecalciferol (Calcium + Vitamin D 250 Mg Tablet) 500 mg PO BEDTIME JOHAN Last Admin: 05/10/21 21:22 Dose: 500 mg Documented by: Carvedilol (Carvedilol 6.25 Mg Tablet) 6.25 mg PO BID [facility]; Protocol Last Admin: 05/11/21 08:25 Dose: 6.25 mg Documented by: Ferric Sodium Gluconate Complex 125 mg/ Sodium Chloride 110 mls @ 100 mls/hr IV DAILY [facility] Stop: 05/13/21 10:05 Last Admin: 05/11/21 08:43 Dose: 100 mls/hr Documented by: Loratadine (Loratadine 10 Mg Tablet) 10 mg PO Q48H [facility] Last Admin: 05/10/21 16:44 Dose: 10 mg Documented by: Magnesium Oxide (Magnesium Oxide 400 Mg Tablet) 400 mg PO DAILY [facility] Last Admin: 05/11/21 08:22 Dose: 400 mg Documented by: Omeprazole (Omeprazole 20 Mg Capsule.Dr) 20 mg PO DAILY [facility] Last Admin: 05/11/21 08:22 Dose: 20 mg Documented by: Ondansetron HCl (Ondansetron Hcl 4 Mg/2 Ml Vial) 4 mg IVPUSH Q8H PRN PRN Reason: Nausea and Vomiting Pharmacy Consult (Consult Rx Perform Med Rec) 1 each MISCELLANE ONCE PRN PRN Reason: Consult order Sodium Chloride (0.9 % Sodium Chloride Flush 3 Ml Syringe) 3 ml IVFLUSH QSHIFT [facility] Last Admin: 05/11/21 08:26 Dose: 3 ml Documented by: Vitamin D (Cholecalciferol (Vitamin D3) 25 Mcg Tablet) 25 mcg PO DAILY [facility] Last Admin: 05/11/21 08:22 Dose: 25 mcg Documented by: Home Medications Medication Instructions Recorded Confirmed Last Taken Type amlodipine 5 mg tablet 5 mg PO DAILY 04/20/20 05/10/21 05/10/21 History atorvastatin 80 mg tablet 80 mg PO BEDTIME 04/20/20 05/10/21 05/09/21 History cholecalciferol (vitamin D3) 25 25 mcg PO DAILY 04/20/20 05/10/21 05/10/21 History mcg (1,000 unit) capsule torsemide 20 mg tablet 40 mg PO DAILY tab 05/09/21 05/10/21 Unknown History calcium carbonate 600 mg-vitamin 1 tab PO BEDTIME 05/10/21 05/10/21 05/09/21 History D3 10 mcg (400 unit) tablet loratadine 10 mg tablet 10 mg PO Q48H 05/10/21 05/10/21 05/10/21 History omeprazole 20 mg capsule,delayed 20 mg PO DAILY 05/10/21 05/10/21 05/10/21 Hi story release Physical Exam Vital Signs: Last Vital Signs Temp 97.8 F 05/11/21 05:50 Pulse 68 05/11/21 08:26 Resp 16 05/11/21 05:50 BP 156/77 H 05/11/21 08:25 Pulse Ox 98 05/11/21 05:50 BMI result Body Mass Index 34.2 oral moinst mucose lungs decreased BSs on bases s1s2 abd soft distended ascites ext _+++ edema Results Lab Results Result Diagrams: 05/11/21 06:26 05/11/21 06:26 Lab results: Chemistry 05/10/21 05/11/21 12:42 06:26 Sodium 141 143 Potassium 5.0 4.9 Carbon Dioxide 19 L 20 L BUN 93 H 94 H Creatinine 9.16 H* 9.33 H* Calcium 8.2 L 8.1 L Hematology 05/10/21 05/11/21 12:42 06:26 WBC 5.9 4.3 L Hgb 8.9 L 8.0 L Plt Count 152 L 121 L Assessment and Plan (1) Renal failure (ARF), acute on chronic: Status: Acute (2) Anasarca: Status: Acute (3) Anemia: Status: Acute (4) HTN (hypertension): Status: Acute (5) IgAN (IgA nephropathy): Status: Acute Pt known to Dr Small from KIDNEY care, appreciate Dr Davison seeing in the meantime, will go ahead and plan for HD tomorrow post Permcath placement eliquis on hold increase BUMEX to 2 mg IV BID give one dose of Metolazone 5 mg pO X1 monitor lytes replete K and MG as needed agree with IV Fe will start EPO with dialysis tomorrow orders in on DC patient will go on home hemodialysis training already had been set up by her sales associate key holder Dr Small pls call if questions Parker Hughes MD Procedures Date of Service Date of Service: 05/11/21
--- NOTE | 2021-05-11 12:16 | MHC.CDI.CONC ---
CDI Concurrent Query Documentation Clarification: PHYSICIAN'S DOCUMENTATION REQUEST Date of Query: 05/11/21 1216 Patient Name: Gabriel Beck Admit Date: 05/10/21 Dear Doctor, A review of the medical record indicates additional documentation may be needed. Please review below and update the documentation accordingly. Clinical Indicators: Risk Factors/Clinical Indicators/Treatments Assessment/plan: Acute CHF Bumex 1mg IV BID. BNP 567 Cardiology consult: 05/11-Repeat echocardiogram showed EF 45-50%. Cardvedilol 6.25 PO BID home medication. Please provide further specificity regarding the most likely type and acuity of CHF you are evaluating, treating, or monitoring. Examples include: Type: Systolic Diastolic Combined Systolic/Diastolic Other ? please specify Unable to determine Acuity: Acute Chronic Acute on chronic Unable to determine Use of terms such as suspected, likely, concern for, or probable (associated with a specific diagnosis that is being evaluated, monitored, or treated as if it exists) are acceptable and can be coded in the inpatient setting, when documented at the time of discharge. Thank you, Charlene Sims [facility], CDIS Extension: [phone] Please use your independent medical judgment in providing your response. THIS QUERY IS PART OF THE PERMANENT MEDICAL RECORD Provider Response: Other Other Diagnosis: Acute HFrEF
--- NOTE | 2021-05-11 13:50 | MHC.SL.SWA ---
Speech Pathologist Impression: Within Functional Limits Dysphasia Diet Status: No Change Liquid Consistency and Strategies for Safe Swallow: Liquid Intake Recommendation: Thin Liquid Intake Strategies: Small Sips Solid Food Consistency: Dietary Recommendations: Regular Additional Modifications to Solid Foods: Bedside dysphagia evaluation ordered d/t choking episode when eating breakfast this morning. Patient seen for PO trials- Patient has dentures which appear to fit well. She is able to feed herself without any difficulties. Unremarkable oral phase- intact rotary chew, complete oral clearance. Timely pharyngeal swallow trigger and no overt s/s of aspiration with consumption of solids and liquids. Recommend continue REGULAR solids and THIN liquids with pills WHOLE in LIQUID. Further ST intervention is no longer warranted as patient's swallow is deemed to be WFL. Please re-refer if there are any changes or further concern. Oral Medication Intake: Whole with Liquid Compensatory Strategies and Precautions to be Taken for Safe Swallow: Sitting Upright (90 deg) Small Bites and Sips Alternate Liquids/Solids Rate of Ingestion Change Supervision While Eating and Drinking for Safe Swallow: Intermittent Supervision Recommendation for Speech: NA:Typical Evaluation Tank House Supervisor Clinican/Clinical Fellow: Yes: Malika Amos Supervisory Statement: I have reviewed and agree with the student/clinical fellow's documentation: N/A Speech Language Pathologist: Shazia Riojas M.A., CCC-ORGAN ASSEMBLER
--- NOTE | 2021-05-11 14:32 | MHC.CM.PN ---
Met with pt via certified court interpreter to discuss d/c planning: Pt resides alone but has family that stay with her on occassion. Pt's niece Chantal, is her compensated QUALITY CONTROL INSPECTOR and will be able to transport pt home. Pt states she has a walker, cane and case management services through [facility]. Chantal will transport pt home when pt is ready. No additional services are identified. Pt has been COVID vaxed x2 no booster. HCP on file and in chart, IMM copy given to pt and in chart. CM to follow for changes in d/c plan
--- NOTE | 2021-05-11 14:39 | PC.NURSE ---
Pt boosted at this time, refused lunch, no complaints of pain. Plan for portacath tomorrow AM, NPO at midnight tonight. Will contineu to monitor.
[2021-05-11] MEDS: hydrALAZINE HCl 25 MG TABLET PO ×2 (15:18→21:35)
[2021-05-11] MEDS: Calcium + Vitamin D 250 MG TABLET 500 MG PO (21:34)
[2021-05-11] MEDS: Bumetanide 1 MG/4 ML VIAL IVPUSH (21:35)
[2021-05-11] MEDS: Atorvastatin Calcium 80 MG TABLET PO (21:35)
[2021-05-11] MEDS: Acetaminophen 325 MG TABLET 650 MG PO (21:41)
[2021-05-12] VITALS (8 sets, daily range): BP systolic 126–146; BP diastolic 55–72; PULSE 67–77; RESP 16–20; TEMP 36.4–36.9; O2SAT 96–97
--- NOTE | 2021-05-12 03:06 | PC.NURSE ---
Pt assisted to bathroom Pt tolerated well with walker Pt back on stretcher and on monitors No apparent distress Pt educated on NPO status Pt verbalized understanding Will continue to monitor
[2021-05-12 07:14] LABS: Hematocrit 28.4 % (37.0-47.0); Hemoglobin 8.5 g/dl (12.0-16.0); Mean Corpuscular HGB Conc 29.9 g/dl (31.0-35.0); Mean Corpuscular Volume 90.2 fL (80.0-98.0); Mean Platelet Volume 9.5 fL (9.4-12.3); Platelet Count 124 X10*3/uL (160-400); Red Blood Count 3.15 X10*6/uL (4.20-5.50); Red Cell Distribution Width 15.2 % (11.0-16.0); White Blood Count 5.7 X10*3/uL (4.8-10.8)
[2021-05-12 07:20] LABS: INTERNATIONAL NORM RATIO 1.5 (0.9-1.1); Prothrombin Time 17.4 SEC (9.9-13.0)
[2021-05-12 07:52] LABS: Anion Gap 17 (12-20); Blood Urea Nitrogen 90 mg/dL (9-16); Carbon Dioxide 16 mmol/L (22-29); Chloride 114 mmol/L (96-108); Creatinine Clr Calc Pharmacy 5.2; Estimated Glomerular Filt Rate 4; Glucose Random 63 mg/dL (60-115); Potassium 4.9 mmol/L (3.3-5.1); Sodium 142 mmol/L (135-145)
--- NOTE | 2021-05-12 08:41 | P.PNNP_ITS ---
Subjective Subjective Date of Service: 05/12/21 Principal diagnosis: pt awating permcath this AM no complaints, Physical Exam Vital Signs: Vital Signs: Last Vital Signs Temp 97.8 F 05/12/21 04:21 Pulse 74 05/12/21 04:21 Resp 20 05/12/21 04:21 BP 134/72 05/12/21 04:21 Pulse Ox 97 05/12/21 04:21 BMI result Body Mass Index 34.2 oral moist mucosa lungs decreased BSs bilaterally s1s2 abd soft slightly distended +BSs nt ext +++ edema neuro awake no focal deficit Objective Data Labs CBC & Chem 7: 05/12/21 06:54 05/12/21 06:54 Labs: Laboratory Results - last 24 hr 05/12/21 05/12/21 05/12/21 06:54 06:54 06:54 WBC 5.7 RBC 3.15 L Hgb 8.5 L Hct 28.4 L MCV 90.2 MCH 27.0 MCHC 29.9 L RDW 15.2 Plt Count 124 L MPV 9.5 Absolute Nucleated RBC 0.000 Nucleated RBC % (auto) 0.0 PT 17.4 H INR 1.5 H Sodium 142 Potassium 4.9 Chloride 114 H Carbon Dioxide 16 L Anion Gap 17 BUN 90 H Creatinine 9.06 H* Estim Creat Clear Calc 5.2 Estimated GFR 4 Random Glucose 63 Calcium 8.0 L Procedures Date of Service Date of Service: 05/12/21 Assessment & Plan Assessment and plan (1) IgAN (IgA nephropathy): Status: Acute (2) Renal failure (ARF), acute on chronic: Status: Acute (3) Anasarca: Status: Acute (4) Ischemic cardiomyopathy: Status: Acute (5) Anemia: Status: Acute Assessment and Plan: Pt known to Dr Small from KIDNEY care, will go ahead and plan for HD today post Permcath placement pt in NPO eliquis on hold Suggest to check Hep B s Ag increase BUMEX to 2 mg IV BID give one dose of Metolazone 5 mg pO X1 monitor lytes replete K and MG as needed agree with IV Fe will start EPO with dialysis tomorrow orders in on DC patient will go on home hemodialysis training at [facility] already had been set up by her senior merchandiser Dr Small pls call if questions Parker Hughes MD Time Spent With Patient Time: Total time spent is greater than 50% in coordination of care (as documented) at patient's floor/unit and/or counseling patient: Progress Note: Quality Stroke Does the patient have a stroke diagnosis?: No
[2021-05-12] MEDS: Bumetanide 1 MG/4 ML VIAL 2 MG IVPUSH (08:49)
[2021-05-12] MEDS: carvediloL 6.25 MG TABLET PO ×2 (08:50→21:42)
[2021-05-12] MEDS: hydrALAZINE HCl 25 MG TABLET PO ×2 (08:50→21:42)
[2021-05-12] MEDS: Magnesium Oxide 400 MG TABLET PO (08:50)
[2021-05-12] MEDS: Cholecalciferol (Vitamin D3) 25 MCG TABLET PO (08:50)
[2021-05-12] MEDS: Amiodarone HCL 200 MG TABLET 100 MG PO (08:50)
[2021-05-12] MEDS: Omeprazole 20 MG CAPSULE.DR PO (08:51)
[2021-05-12] MEDS: amLODIPine Besylate 5 MG TABLET PO (08:51)
[2021-05-12] MEDS: 0.9 % Sodium Chloride Flush 3 ML SYRINGE IVFLUSH (08:51)
--- NOTE | 2021-05-12 09:01 | PC.NURSE ---
Pt A&Ox3, no complaints of pain, but states she feels tired and run down. Medicated as per [facility] orders at this time. Plan for portacath placement at noon, report given to [facility] by this RN. Lungs diminished in the bases, NSR on monitor at this time. Call renteria within reach, will continue to monitor.
[2021-05-12] MEDS: Sodium Ferric Gluconat/Sucrose 125 MG in 0.9 % Sodium Chloride 100 ML 100 MG IV (09:09)
[2021-05-12 09:55] LABS: HBS Num1 5.05 mIU/mL (0-7.99); HBc Num1 0.19 S/CO (0.00-0.79); HBsAGNum1 0.31 S/CO (0.00-0.99); Hepatitis B Core Antibody Nonreactive (Nonreactive); Hepatitis B Surface Antigen Negative (Negative); ~Hepatitis B Surface Antibody NONREACTIVE (Nonreactive)
[2021-05-12 10:34] LABS: ~HepC Num1 0.14 S/CO (0.00-0.79); ~Hepatitis C Antibody Nonreactive (Nonreactive)
[2021-05-12] MEDS: Acetaminophen 325 MG TABLET 650 MG PO ×2 (11:57→21:42)
--- NOTE | 2021-05-12 12:13 | CONS_ITS ---
DATE OF SERVICE: 05/11/2021 REASON FOR CONSULTATION: Evaluation of [id number] kidney disease. OUTPATIENT BOOKKEEPING SERVICE SALES AGENT: Phillip Small M.D. HISTORY OF PRESENT ILLNESS: Ms. Beck is a very pleasant 70-year-old female, who has a longstanding history of chronic kidney disease secondary to IgA nephropathy with a baseline creatinine of 2.2-2.5 mg/dL, who over the past few months has continued to progress with her creatinine going up to 4.3-5.5 mg/dL, she has had previous episodes of JONATHAN admissions to [facility], she has had proteinuria in average of 5-6 g. She has had progressive CKD. The patient has developed increased shortness of breath, was brought into the hospital for further evaluation. Recently was noted to have increased edema of the lower extremities. She was seen by architectural draftsman, who sent her to the hospital as a result of abnormal labs. She has a history of cardiomyopathy requiring ICD implantation in the past, she was noted to have a creatinine of 9.1 mg/dL, the chest x-ray with an opacity of the left lower lobe concerning for pneumonia, was admitted for further management and evaluation. PAST MEDICAL HISTORY: Coronary artery disease. ICD in place for ischemic cardiomyopathy. Paroxysmal atrial fibrillation, history of ventricular tachycardia, hyperlipidemia, IgA nephropathy, advanced chronic kidney disease stage 4, progressing to stage 5. PAST SURGICAL HISTORY: Left knee replacement, ICD placement as mentioned above. SOCIAL HISTORY: Lives at home with her daughter, recently came back from [place]. Denies any history of smoking cigarettes or drinking alcohol. FAMILY HISTORY: Noncontributory. REVIEW OF SYSTEMS: Presently, she reports feeling significantly better. Denies any nausea, vomiting, diarrhea, abdominal pain, melena. Reports shortness of breath has also improved. Denies any headache, visual changes, fevers, cough, hemoptysis, hematemesis, or bright red blood per rectum. Rest of the 10-point review of systems negative. HOME MEDICATIONS: Included amlodipine, atorvastatin, vitamin D, torsemide, calcium carbonate, loratadine, and omeprazole. ALLERGIES: TO NSAIDS.??? Since admission to the hospital has been initiated on IV iron. PHYSICAL EXAMINATION: GENERAL: She is alert, in no apparent distress. VITAL SIGNS: Her blood pressure is 156/67. Oxygen saturation 100% on room air. HEENT: Oral moist mucosa. NECK: Reveals no jugular venous distention. LUNGS: Have decreased breath sounds bilaterally. HEART: S1, S2. No S3, no S4. No murmurs. ABDOMEN: Soft, distended. Positive bowel sounds. Nontender. EXTREMITIES: Show 2-3+ lower extremity edema. LABORATORY DATA: Potassium 4.9. Creatinine is up to 9.3 mg/dL. Carbon dioxide 20, hemoglobin of 8.0. X-ray as mentioned above. White count 4,300. INR 1.8. Iron saturation 12%, ferritin 201. Elevated LFTs, AST 51, ALT 34, BNP level 550, albumin 2.7. Urinalysis, 3+ albumin. COVID test negative. IMPRESSIONS: Ms. Beck is a very pleasant 70-year-old female with known medical history of advanced chronic kidney disease, known to our service for chronic kidney disease stage 4, associated with IgA nephropathy, ongoing hypertensive disease, ischemic cardiomyopathy, who unfortunately has developed severe volume overload requiring hospitalization. Acute kidney injury superimposed on chronic kidney disease stage 5. Anasarca as a result of hypervolemia, cardiomyopathy, and worsening renal failure. Anemia. Iron deficiency. RECOMMENDATIONS: We will go ahead and arrange for dialysis. The patient has already been set up for a PermCath placement tomorrow. As she has been on Eliquis, antiplatelet agent will be put on hold until able to undergo procedure. Fortunately, there is no urgency today. We can go ahead and plan for first dialysis treatment tomorrow. Continue with IV diuretics. Suggest to increase Bumex to 2 mg IV bid. Add Metolazone 5 mg PO X1 Evaluate ultrasound for ascites and perform paracentesis if need be. Consider albumin infusion pre-paracentesis. Regarding outpatient dialysis, patient has been evaluated by the kidney care team, Dr. Small. Patient has been planned to have outpatient home dialysis on discharge. We will coordinate at that time. Thank you for allowing us to be part of her care. MD SHELIA Noguera/MODL / [phone] MTDD
--- NOTE | 2021-05-12 13:15 | PC.NURSE ---
Pt off the floor to get portacath at 1230.
[2021-05-12] MEDS: Lidocaine HCl 1%/Epi 1:100,000 20 ML VIAL 10 ML INFILTRATI (15:46)
[2021-05-12] MEDS: Heparin Sodium,Porcine 1,000 UNIT/ML VIAL 3800 UNIT IV (15:48)
[2021-05-12] MEDS: Lidocaine HCl 1 % MPF 5 ML VIAL 6 ML SUBCUT (16:58)
[2021-05-12 17:35] LABS: MN% 96.5 %; PMN% 3.5 %; RBC Peritoneal Fluid 0.002 X10*6/uL; WBC Peritoneal Fluid 0.143 X10*3/uL
--- NOTE | 2021-05-12 17:38 | HO.PM.IMPN ---
Subjective Subjective Date of Service: 05/12/21 Interval History: seen and examined this morning follow up for cardiomyopathy, JONATHAN reporting abdominal distension and some mild pain no nausea/vomiting, no diarrhea Review of Systems Review of Systems: Yes all other systems are reviewed and are negative Constitutional Constitutional: Denies chills and Denies fever(s) Cardiovascular Cardiovascular: Denies chest pain Respiratory Respiratory: Denies cough Physical Exam Vital Signs: Vital Signs: Last Vital Signs Temp 97.9 F 05/12/21 17:05 Pulse 72 05/12/21 17:05 Resp 18 05/12/21 17:05 BP 126/55 L 05/12/21 17:05 Pulse Ox 96 05/12/21 17:05 BMI result Body Mass Index 34.2 Const: General: cooperative, comfortable, no acute distress and alert Nutritional Appearance: well nourished Orientation/consciousness: patient oriented x3 HENMT: Head: Yes normocephalic and Yes atraumatic Eyes: Sclerae: sclerae normal Resp: Effort & Inspection: normal respiratory effort and no respiratory distress Cardio: Rate: regular rate Rhythm: regular rhythm GI: Other: softly distended, no rebound Neuro: General: patient oriented x3 Cranial nerves: Yes CN's II-XII intact bilaterally and Yes Bilaterally intact EOM present Extrem: Other: able to move all 4 extremities spontaneously Objective Data Active Medications Acetaminophen (Acetaminophen 325 Mg Tablet) 650 mg PO Q6H PRN PRN Reason: Pain, Mild (Pain Scale 1-3) Last Admin: 05/12/21 11:57 Dose: 650 mg Documented by: LESLY Amiodarone HCl (Amiodarone Hcl 200 Mg Tablet) 100 mg PO DAILY [facility] Last Admin: 05/12/21 08:50 Dose: 100 mg Documented by: LESLY Amlodipine Besylate (Amlodipine Besylate 5 Mg Tablet) 5 mg PO DAILY [facility]; Protocol Last Admin: 05/12/21 08:51 Dose: 5 mg Documented by: LESLY Atorvastatin Calcium (Atorvastatin Calcium 80 Mg Tablet) 80 mg PO BEDTIME [facility] Last Admin: 05/11/21 21:35 Dose: 80 mg Documented by: ADRIANA Bumetanide (Bumetanide 1 Mg/4 Ml Vial) 2 mg IVPUSH BID@0900,1700 [facility]; Protocol Last Admin: 05/12/21 08:49 Dose: 2 mg Documented by: LESLY Calcium Carbonate/Cholecalciferol (Calcium + Vitamin D 250 Mg Tablet) 500 mg PO BEDTIME [facility] Last Admin: 05/11/21 21:34 Dose: 500 mg Documented by: ADRIANA Carvedilol (Carvedilol 6.25 Mg Tablet) 6.25 mg PO BID [facility]; Protocol Last Admin: 05/12/21 08:50 Dose: 6.25 mg Documented by: LESLY Heparin Sodium (Porcine) (Heparin Sodium,Porcine Flush 500 Unit/5 Ml Syringe) 500 unit IVFLUSH TUTHSA@1645 [facility] Hydralazine HCl (Hydralazine Hcl 25 Mg Tablet) 25 mg PO TID [facility]; Protocol Last Admin: 05/12/21 08:50 Dose: 25 mg Documented by: LESLY Ferric Sodium Gluconate Complex 125 mg/ Sodium Chloride 110 mls @ 100 mls/hr IV DAILY [facility] Stop: 05/13/21 10:05 Last Infusion: 05/12/21 11:37 Dose: 0 mls/hr Documented by: LESLY Loratadine (Loratadine 10 Mg Tablet) 10 mg PO Q48H [facility] Last Admin: 05/10/21 16:44 Dose: 10 mg Documented by: FARHANA Magnesium Oxide (Magnesium Oxide 400 Mg Tablet) 400 mg PO DAILY [facility] Last Admin: 05/12/21 08:50 Dose: 400 mg Documented by: LESLY Omeprazole (Omeprazole 20 Mg Capsule.Dr) 20 mg PO DAILY [facility] Last Admin: 05/12/21 08:51 Dose: 20 mg Documented by: LESLY Ondansetron HCl (Ondansetron Hcl 4 Mg/2 Ml Vial) 4 mg IVPUSH Q8H PRN PRN Reason: Nausea and Vomiting Pharmacy Consult (Consult Rx Perform Med Rec) 1 each MISCELLANE ONCE PRN PRN Reason: Consult order Sodium Chloride (0.9 % Sodium Chloride Flush 3 Ml Syringe) 3 ml IVFLUSH QSHIFT [facility] Last Admin: 05/12/21 15:36 Dose: Not Given Documented by: LESLY Non-Admin Reason: Off Unit: Surgery Vitamin D (Cholecalciferol (Vitamin D3) 25 Mcg Tablet) 25 mcg PO DAILY [facility] Last Admin: 05/12/21 08:50 Dose: 25 mcg Documented by: LESLY Labs CBC & Chem 7: 05/12/21 06:54 05/12/21 06:54 Labs: Laboratory Results - last 24 hr 05/12/21 05/12/21 05/12/21 06:54 06:54 06:54 MCV 90.2 MCH 27.0 MCHC 29.9 L RDW 15.2 Plt Count 124 L MPV 9.5 Absolute Nucleated RBC 0.000 Nucleated RBC % (auto) 0.0 PT 17.4 H INR 1.5 H Anion Gap 17 Estim Creat Clear Calc 5.2 Estimated GFR 4 Random Glucose 63 Calcium 8.0 L Hep Bs Antigen Hep Bs Antibody Hep B Core Total Ab Hepatitis C Ab (EIA) 05/12/21 09:10 MCV MCH MCHC RDW Plt Count MPV Absolute Nucleated RBC Nucleated RBC % (auto) PT INR Anion Gap Estim Creat Clear Calc Estimated GFR Random Glucose Calcium Hep Bs Antigen Negative Hep Bs Antibody NONREACTIVE Hep B Core Total Ab Nonreactive Hepatitis C Ab (EIA) Nonreactive Assessment and Plan (1) Anemia: Status: Acute (2) CHF (congestive heart failure): Status: Acute Assessment and Plan: 70 year old wmen with a hx of vtach and ICD implantation. She has had worsening renal function over the last year and will likely require dialysis ESRD, not on dialysis. Worsening renal function with anasarca plan fo cath placement 05/12/21 and dialysis (eliquis on hold) nephrology following Acute HFrEF Bumex 1mg IV BID increased to 2mg bid cardiology following, recommended adding hydralazine 25 mg t.i.d. daily weights, strict I&O Echocardiogram from 05/11 showing EF of 45-50% cardiology following Abdominal distention abdominal US showing ascites worsening despite diuresis will order paracentesis follow up fluid studies Transaminitis. Possibly secondary to fluid overload Diurese follow BNP and LFT's Anemia Secondary to renal disease IV iron and Procrit added as per Nephrology recommendation H/H stable HTN continue norvasc, coreg, hydralazine added 05/11 Paroxysmal atria fibrillation Continue amiodarone, coreg Hold Eliquis CAD statin and BB Attending Dr. Hopper Full code DVT prophylaxis with Eliquis? Quality Stroke Does the patient have a stroke diagnosis?: No VTE Prior VTE?: No VTE Risk Level:: Medical - moderate - high VTE Device Contraindication: N/A - Device Ordered VTE Drug Contraindication: Treatment Not Indicated
--- NOTE | 2021-05-12 17:51 | PC.NURSE ---
Pt returned from [facility], OOB to [place] with vandana strickland in DI[facility]. Pt transported to dialysis by [facility]. Pt offers no complaints of pain at this time, A&Ox3.
[2021-05-12 17:55] LABS: BF Shift QC OK YES; Lymphocyte Peritoneal Fl 33 %; Monocytes Peritoneal Fl 58 %; Other Peritioneal Fl 9 %
[2021-05-12] MEDS: Calcium + Vitamin D 250 MG TABLET 500 MG PO (21:42)
[2021-05-12] MEDS: Atorvastatin Calcium 80 MG TABLET PO (21:42)
[2021-05-13] VITALS (8 sets, daily range): BP systolic 136–146; BP diastolic 65–69; PULSE 71–76; RESP 18–20; TEMP 36.6–37.3; O2SAT 94–99
[2021-05-13] MEDS: 0.9 % Sodium Chloride Flush 3 ML SYRINGE IVFLUSH ×3 (05:18→20:09)
[2021-05-13 06:41] LABS: Hemoglobin 8.8 g/dl (12.0-16.0); Mean Corpuscular HGB Conc 30.3 g/dl (31.0-35.0); Mean Corpuscular Hemoglobin 27.3 pg (27.0-33.0); Mean Corpuscular Volume 90.1 fL (80.0-98.0); Mean Platelet Volume 9.4 fL (9.4-12.3); NRBC Pct Auto 0.3 /100WBC (0.0-0.2); Platelet Count 117 X10*3/uL (160-400); Red Blood Count 3.22 X10*6/uL (4.20-5.50); Red Cell Distribution Width 15.4 % (11.0-16.0); White Blood Count 7.3 X10*3/uL (4.8-10.8)
[2021-05-13 07:18] LABS: INTERNATIONAL NORM RATIO 1.4 (0.9-1.1); Prothrombin Time 15.8 SEC (9.9-13.0)
[2021-05-13 07:42] LABS: Alanine Aminotransferase 41 U/L (0-31); Albumin Level 2.3 g/dL (3.5-5.0); Alkaline Phosphatase 80 U/L (39-117); Anion Gap 18 (12-20); Aspartate Amino Transferase 81 U/L (5-31); Bilirubin Direct 0.2 mg/dL (0.0-0.5); Bilirubin Total 0.3 mg/dL (0.0-1.0); Blood Urea Nitrogen 70 mg/dL (9-16); Calcium 8.1 mg/dL (8.4-10.2); Carbon Dioxide 16 mmol/L (22-29); Chloride 113 mmol/L (96-108); Estimated Glomerular Filt Rate 5; Glucose Random 42 mg/dL (60-115); Potassium 4.5 mmol/L (3.3-5.1); Sodium 142 mmol/L (135-145); Total Protein 5.9 g/dL (6.5-8.0)
[2021-05-13] MEDS: Omeprazole 20 MG CAPSULE.DR PO (08:46)
[2021-05-13] MEDS: Cholecalciferol (Vitamin D3) 25 MCG TABLET PO (08:46)
[2021-05-13] MEDS: Magnesium Oxide 400 MG TABLET PO (08:47)
[2021-05-13 09:25] LABS: Glucose, Whole Blood 132 mg/dL (60-115)
--- NOTE | 2021-05-13 11:04 | P.PNIM_ITS ---
Subjective Subjective Date of Service: 05/13/21 Interval History: seen and examined this morning. history obtained with use of paraprofessional interpreter follow up for ESRD s/p perm cath placed yesterday also s/p paracentesis abdominal pain resolved blood sugar noted on labs this morning, pt asymptomatic Review of Systems Review of Systems: Yes all other systems are reviewed and are negative Constitutional Constitutional: Denies chills and Denies fever(s) Cardiovascular Cardiovascular: Denies chest pain Respiratory Respiratory: Denies cough Gastrointestinal Gastrointestinal: Denies abdominal pain Physical Exam Verdana 4l Vital Signs: Verdana 4d Verdana 4d Vital Signs: Verdana 4d Verdana 4Bd Last Vital Signs Verdana 4d Life Agent New 4d Life Agent New 4d Temp 99.2 F 05/13/21 08:00 Life Agent New 4d Pulse 76 05/13/21 08:00 Life Agent NewNew 4d Resp 20 05/13/21 08:00 BP 146/67 H 05/13/21 08:00 Pulse Ox 98 05/13/21 08:00 BMI result Body Mass Index 34.2 Const: General: cooperative, comfortable, no acute distress and alert Nutritional Appearance: well nourished Orientation/consciousness: patient oriented x3 HENMT: Head: Yes normocephalic and Yes atraumatic Eyes: Sclerae: sclerae normal Chest: Other: right side permcath Resp: Effort & Inspection: normal respiratory effort and no respiratory distress Cardio: Rate: regular rate Rhythm: regular rhythm GI: Other: soft, non-tender, non-disended Neuro: General: patient oriented x3 Cranial nerves: Yes CN's II-XII intact bilaterally and Yes Bilaterally intact EOM present Extrem: Other: able to move all 4 extremities spontaneously Objective Data Active Medications Acetaminophen (Acetaminophen 325 Mg Tablet) 650 mg PO Q6H PRN PRN Reason: Pain, Mild (Pain Scale 1-3) Last Admin: 05/12/21 21:42 Dose: 650 mg Documented by: VERNON Amiodarone HCl (Amiodarone Hcl 200 Mg Tablet) 100 mg PO DAILY [facility] Last Admin: 05/12/21 08:50 Dose: 100 mg Documented by: LESLY Amlodipine Besylate (Amlodipine Besylate 5 Mg Tablet) 5 mg PO DAILY [facility]; Protocol Last Admin: 05/12/21 08:51 Dose: 5 mg Documented by: LESLY Atorvastatin Calcium (Atorvastatin Calcium 80 Mg Tablet) 80 mg PO BEDTIME [facility] Last Admin: 05/12/21 21:42 Dose: 80 mg Documented by: VERNON Bumetanide (Bumetanide 1 Mg/4 Ml Vial) 2 mg IVPUSH BID@0900,1700 [facility]; Protocol Last Admin: 05/13/21 04:02 Dose: Not Given Documented by: HUMZA Non-Admin Reason: EDs missed documentation, pt got dialysis Calcium Carbonate/Cholecalciferol (Calcium + Vitamin D 250 Mg Tablet) 500 mg PO BEDTIME [facility] Last Admin: 05/12/21 21:42 Dose: 500 mg Documented by: VERNON Carvedilol (Carvedilol 6.25 Mg Tablet) 6.25 mg PO BID [facility]; Protocol Last Admin: 05/12/21 21:42 Dose: 6.25 mg Documented by: VERNON Dextrose (Dextrose 50 % 25 Gm/50 Ml Vial) 25 gm IVPUSH Q15M PRN; Protocol PRN Reason: per Hypoglycemia Standing Ord. Last Admin: 05/13/21 08:12 Dose: 25 gm Documented by: ONEL Glucose (Glucose Gel 15 Gm Gel..Gram.) 15 gm PO Q15M PRN; Protocol PRN Reason: per Hypoglycemia Standing Ord. Heparin Sodium (Porcine) (Heparin Sodium,Porcine Flush 500 Unit/5 Ml Syringe) 500 unit [facility]USH [facility]1645 [facility] Last Admin: 05/13/21 04:02 Dose: Not Given Documented by: HUMZA Non-Admin Reason: EDs missed documentation, pt got dialysis Hydralazine HCl (Hydralazine Hcl 25 Mg Tablet) 25 mg PO TID [facility]; Protocol Last Admin: 05/12/21 21:42 Dose: 25 mg Documented by: VERNON Loratadine (Loratadine 10 Mg Tablet) 10 mg PO Q48H [facility] Last Admin: 05/13/21 04:01 Dose: Not Given Documented by: HUMZA Non-Admin Reason: EDs missed documentation, pt got dialysis Magnesium Oxide (Magnesium Oxide 400 Mg Tablet) 400 mg PO DAILY [facility] Last Admin: 05/13/21 08:47 Dose: 400 mg Documented by: ONEL Omeprazole (Omeprazole 20 Mg Capsule.) 20 mg PO DAILY [facility] Last Admin: 05/13/21 08:46 Dose: 20 mg Documented by: ONEL Ondansetron HCl (Ondansetron Hcl 4 Mg/2 Ml Vial) 4 mg IVPUSH Q8H PRN PRN Reason: Nausea and Vomiting Pharmacy Consult (Consult Rx Perform Med Rec) 1 each MISCELLANE ONCE PRN PRN Reason: Consult order Sodium Chloride (0.9 % Sodium Chloride Flush 3 Ml Syringe) 3 ml IVFLUSH QSHIFT [facility] Last Admin: 05/13/21 05:18 Dose: 3 ml Documented by: DONATOUMKIMBERLY Vitamin D (Cholecalciferol (Vitamin D3) 25 Mcg Tablet) 25 mcg PO DAILY [facility] Last Admin: 05/13/21 08:46 Dose: 25 mcg Documented by: ONEL Labs CBC & Chem 7: 05/13/21 05:44 05/13/21 05:44 Labs: Laboratory Results - last 24 hr 05/12/21 05/12/21 05/13/21 09:10 15:55 05:44 MCV MCH MCHC RDW Plt Count MPV Absolute Nucleated RBC Nucleated RBC % (auto) PT 15.8 H INR 1.4 H Anion Gap Estim Creat Clear Calc Estimated GFR POC Glucose Random Glucose Calcium Total Bilirubin Direct Bilirubin AST ALT Alkaline Phosphatase Total Protein Albumin Peritoneal WBC 0.143 Peritoneal RBC 0.002 Periton Lymphocytes 33 Peritoneal Monocytes 58 Peritoneal Other Cells 9 Hep Bs Antigen Negative Hep Bs Antibody NONREACTIVE Hep B Core Total Ab Nonreactive Hepatitis C Ab (EIA) Nonreactive 05/13/21 05/13/21 05/13/21 05:44 05:44 09:22 MCV 90.1 MCH 27.3 MCHC 30.3 L RDW 15.4 Plt Count 117 L MPV 9.4 Absolute Nucleated RBC 0.020 H Nucleated RBC % (auto) 0.3 H PT INR Anion Gap 18 Estim Creat Clear Calc 6.0 Estimated GFR 5 POC Glucose 132 H Random Glucose 42 L* Calcium 8.1 L Total Bilirubin 0.3 Direct Bilirubin 0.2 AST 81 H ALT 41 H Alkaline Phosphatase 80 D Total Protein 5.9 L Albumin 2.3 L Peritoneal WBC Peritoneal RBC Periton Lymphocytes Peritoneal Monocytes Peritoneal Other Cells Hep Bs Antigen Hep Bs Antibody Hep B Core Total Ab Hepatitis C Ab (EIA) Assessment and Plan (1) CHF (congestive heart failure): Status: Acute (2) Anemia: Status: Acute (3) Renal failure (ARF), acute on chronic: Status: Acute Assessment and Plan: This is a 70 year old female with PMH of HTN, HLD, CAD with prior AR, Ischemic CMP, NSVT, Biotronic ICD, PAF, TIA. She has had worsening renal function over the last year and will likely require dialysis ESRD admitted with worsening renal function with anasarca s/p permcath placement and dialysis 05/12/21 plan for dialysis today as well nephrology following plan for outpatient HD at [facility] upon discharge hypoglycemia no history of DM, likely r/t to decreased po intake check Hba1c follow POC Acute HFrEF, Echocardiogram from 05/11 showing EF of 45-50% s/p ICD for vtach initially treated with IV bumex, no receiving dialysis daily weights, strict I&O cardiology following Abdominal distention/pain abdominal US showing ascites worsening despite diuresis s/p paracentesis 05/12 with 5.4L removed no SBP Transaminitis. chronically elevated follow LFT's Anemia Secondary to renal disease IV iron and Procrit added as per Nephrology recommendation H/H stable HTN continue norvasc, coreg, hydralazine added 05/11 Paroxysmal atria fibrillation Continue amiodarone, coreg Resume Eliquis CAD statin and BB Attending Dr. Castellanos Full code DVT prophylaxis with Eliquis? Quality Stroke Does the patient have a stroke diagnosis?: No VTE Prior VTE?: No VTE Risk Level:: Medical - moderate - high VTE Device Contraindication: N/A - Device Ordered VTE Drug Contraindication: Treatment Not Indicated
[2021-05-13 11:19] LABS: Glucose, Whole Blood 111 mg/dL (60-115)
[2021-05-13 11:38] LABS: Estimated Average Glucose 91 mg/dL; Hemoglobin A1c % 4.8 %
[2021-05-13 11:53] LABS: Glucose, Whole Blood 104 mg/dL (60-115)
--- NOTE | 2021-05-13 12:13 | PM.PNNEP ---
Subjective Subjective Date of Service: 05/13/21 Principal diagnosis: pt awating permcath this AM no complaints, Interval history: seen and examined this morning pt with ESRD s/p permcath HD day 2 (2 L removed first rx, and 1 L removed today) denies SOB had paracenthesis 5.4 L fluid removed Physical Exam Vital Signs: Vital Signs: Last Vital Signs Temp 99.2 F 05/13/21 08:00 Pulse 76 05/13/21 11:07 Resp 20 05/13/21 08:00 BP 146/67 H 05/13/21 11:07 Pulse Ox 98 05/13/21 08:00 BMI result Body Mass Index 34.2 oral moist mucosa lungs decreased BSs on bases s1s2 abd sot less distended +BSs ext ++edema skin Rt Chest Permcath noted Objective Data Labs CBC & Chem 7: 05/13/21 05:44 05/13/21 05:44 Labs: Laboratory Results - last 24 hr 05/12/21 05/13/21 05/13/21 15:55 05:44 05:44 WBC 7.3 RBC 3.22 L Hgb 8.8 L Hct 29.0 L MCV 90.1 MCH 27.3 MCHC 30.3 L RDW 15.4 Plt Count 117 L MPV 9.4 Absolute Nucleated RBC 0.020 H Nucleated RBC % (auto) 0.3 H PT 15.8 H INR 1.4 H Sodium Potassium Chloride Carbon Dioxide Anion Gap BUN Creatinine Estim Creat Clear Calc Estimated GFR POC Glucose Random Glucose Estimat Average Glucose Hemoglobin A1c % Calcium Total Bilirubin Direct Bilirubin AST ALT Alkaline Phosphatase Total Protein Albumin Peritoneal WBC 0.143 Peritoneal RBC 0.002 Periton Lymphocytes 33 Peritoneal Monocytes 58 Peritoneal Other Cells 9 05/13/21 05/13/21 05/13/21 05:44 05:44 09:22 WBC RBC Hgb Hct MCV MCH MCHC RDW Plt Count MPV Absolute Nucleated RBC Nucleated RBC % (auto) PT INR Sodium 142 Potassium 4.5 Chloride 113 H Carbon Dioxide 16 L Anion Gap 18 BUN 70 H Creatinine 7.84 H* Estim Creat Clear Calc 6.0 Estimated GFR 5 POC Glucose 132 H Random Glucose 42 L* Estimat Average Glucose 91 Hemoglobin A1c % 4.8 Calcium 8.1 L Total Bilirubin 0.3 Direct Bilirubin 0.2 AST 81 H ALT 41 H Alkaline Phosphatase 80 D Total Protein 5.9 L Albumin 2.3 L Peritoneal WBC Peritoneal RBC Periton Lymphocytes Peritoneal Monocytes Peritoneal Other Cells 05/13/21 05/13/21 11:07 11:49 WBC RBC Hgb Hct MCV MCH MCHC RDW Plt Count MPV Absolute Nucleated RBC Nucleated RBC % (auto) PT INR Sodium Potassium Chloride Carbon Dioxide Anion Gap BUN Creatinine Estim Creat Clear Calc Estimated GFR POC Glucose 111 104 Random Glucose Estimat Average Glucose Hemoglobin A1c % Calcium Total Bilirubin Direct Bilirubin AST ALT Alkaline Phosphatase Total Protein Albumin Peritoneal WBC Peritoneal RBC Periton Lymphocytes Peritoneal Monocytes Peritoneal Other Cells Microbiology Microbiology Results: Microbiology 05/12/21 15:55 Peritoneal Fluid Gram Stain - Final 05/12/21 15:55 Peritoneal Fluid Anaerobic Culture - Preliminary No growth to date. 05/12/21 15:55 Peritoneal Fluid Body Fluid Culture - Preliminary No growth to date. Procedures Date of Service Date of Service: 05/13/21 Assessment & Plan Assessment and plan (1) ESRD (end stage renal disease): Status: Acute (2) CHF (congestive heart failure): Status: Acute (3) Anasarca: Status: Acute (4) IgAN (IgA nephropathy): Status: Acute (5) HTN (hypertension): Status: Acute Assessment and Plan: agree with current mgment will plan for Next Dialysis on Sunday meds reviewed anemia of CKD and Fe Def CHF continue with bumex can be discharged on equivalent dose orally 2 mg PO BID keep Low Na and Renal Diet if PT is Discharged through the weekend may go to [facility] on [address] [place] [address] on Sunday at 7 AM to start incenter and training for home dialysis as previously planned pls let Chantal her niece know to coordinate if questions call or text Dr Hughes [phone] thank you Time Spent With Patient Time: Total time spent is greater than 50% in coordination of care (as documented) at patient's floor/unit and/or counseling patient: Progress Note: Quality Stroke Does the patient have a stroke diagnosis?: No
[2021-05-13 12:22] LABS: Glucose, Whole Blood 150 mg/dL (60-115)
[2021-05-13 12:22] LABS: Glucose, Whole Blood 48 mg/dL (60-115)
[2021-05-13] MEDS: Sodium Ferric Gluconat/Sucrose 125 MG in 0.9 % Sodium Chloride 100 ML 100 MG IV (14:11)
[2021-05-13] MEDS: hydrALAZINE HCl 25 MG TABLET PO ×2 (16:05→20:09)
[2021-05-13] MEDS: Bumetanide 1 MG TABLET 2 MG PO (16:05)
[2021-05-13] MEDS: Atorvastatin Calcium 80 MG TABLET PO (20:09)
[2021-05-13] MEDS: Apixaban 5 MG TABLET PO (20:09)
[2021-05-13] MEDS: carvediloL 6.25 MG TABLET PO (20:09)
[2021-05-13] MEDS: Calcium + Vitamin D 250 MG TABLET 500 MG PO (20:09)
[2021-05-13] MEDS: Acetaminophen 325 MG TABLET 650 MG PO (20:12)
[2021-05-13] MEDS: ondansetron HCL 4 MG/2 ML VIAL IVPUSH (22:11)
[2021-05-14] VITALS (12 sets, daily range): BP systolic 112–141; BP diastolic 57–74; PULSE 63–70; RESP 18–20; TEMP 36.6–37.2; O2SAT 92–99
[2021-05-14 07:17] LABS: Hematocrit 28.2 % (37.0-47.0); Hemoglobin 8.7 g/dl (12.0-16.0); Mean Corpuscular HGB Conc 30.9 g/dl (31.0-35.0); Mean Corpuscular Hemoglobin 27.5 pg (27.0-33.0); Mean Corpuscular Volume 89.2 fL (80.0-98.0); Platelet Count 113 X10*3/uL (160-400); Red Blood Count 3.16 X10*6/uL (4.20-5.50); Red Cell Distribution Width 15.5 % (11.0-16.0); White Blood Count 6.3 X10*3/uL (4.8-10.8)
[2021-05-14 07:49] LABS: Anion Gap 11 (12-20); Blood Urea Nitrogen 39 mg/dL (9-16); Calcium 7.6 mg/dL (8.4-10.2); Carbon Dioxide 23 mmol/L (22-29); Chloride 105 mmol/L (96-108); Creatinine Clr Calc Pharmacy 8.2; Estimated Glomerular Filt Rate 7; Glucose Random 83 mg/dL (60-115); Potassium 3.8 mmol/L (3.3-5.1); Sodium 135 mmol/L (135-145)
[2021-05-14] MEDS: hydrALAZINE HCl 25 MG TABLET PO ×3 (09:05→20:27)
[2021-05-14] MEDS: Omeprazole 20 MG CAPSULE.DR PO (09:05)
[2021-05-14] MEDS: Bumetanide 1 MG TABLET 2 MG PO ×2 (09:05→16:02)
[2021-05-14] MEDS: amLODIPine Besylate 5 MG TABLET PO (09:06)
[2021-05-14] MEDS: Apixaban 5 MG TABLET PO ×2 (09:06→20:20)
[2021-05-14] MEDS: carvediloL 6.25 MG TABLET PO ×2 (09:06→20:20)
[2021-05-14] MEDS: Cholecalciferol (Vitamin D3) 25 MCG TABLET PO (09:07)
[2021-05-14] MEDS: Magnesium Oxide 400 MG TABLET PO (09:07)
[2021-05-14] MEDS: Amiodarone HCL 200 MG TABLET 100 MG PO (09:07)
[2021-05-14] MEDS: 0.9 % Sodium Chloride Flush 3 ML SYRINGE IVFLUSH ×3 (09:10→20:21)
--- NOTE | 2021-05-14 11:42 | P.PNIM_ITS ---
Subjective Subjective Date of Service: 05/14/21 Interval History: seen and examined this morning follow up for esrd, ascites reporting diarrhea and sore throat this morning no abdominal pain Review of Systems Review of Systems: Yes all other systems are reviewed and are negative Constitutional Constitutional: Denies chills and Denies fever(s) Cardiovascular Cardiovascular: Denies chest pain Respiratory Respiratory: Denies cough Gastrointestinal Gastrointestinal: Denies abdominal pain and Reports diarrhea Physical Exam Verdana 4l Vital Signs: Verdana 4d Verdana 4d Vital Signs: Verdana 4d Verdana 4Bd Last Vital Signs Verdana 4d Satellite Installation Technician New 4d Satellite Installation Technician New 4d Temp 98.3 F 05/14/21 11:12 Satellite Installation Technician New 4d Pulse 65 05/14/21 11:12 Satellite Installation Technician NewNew 4d Resp 20 05/14/21 11:12 BP 112/61 05/14/21 11:12 Pulse Ox 94 05/14/21 11:12 BMI result Body Mass Index 34.2 Const: General: cooperative, comfortable, no acute distress and alert Nutritional Appearance: well nourished Orientation/consciousness: patient oriented x3 HENMT: Head: Yes normocephalic and Yes atraumatic Eyes: Sclerae: sclerae normal Chest: Other: right side permcath Resp: Other: diminished Effort & Inspection: normal respiratory effort and no respiratory distress Cardio: Rate: regular rate Rhythm: regular rhythm GI: Other: soft, non-tender, non-disended Neuro: General: patient oriented x3 Cranial nerves: Yes CN's II-XII intact bilaterally and Yes Bilaterally intact EOM present Extrem: Other: able to move all 4 extremities spontaneously Objective Data Active Medications Acetaminophen (Acetaminophen 325 Mg Tablet) 650 mg PO Q6H PRN PRN Reason: Pain, Mild (Pain Scale 1-3) Last Admin: 05/13/21 20:12 Dose: 650 mg Documented by: ALLY Amiodarone HCl (Amiodarone Hcl 200 Mg Tablet) 100 mg PO DAILY [facility] Last Admin: 05/14/21 09:07 Dose: 100 mg Documented by: ONEL Amlodipine Besylate (Amlodipine Besylate 5 Mg Tablet) 5 mg PO DAILY [facility]; Protocol Last Admin: 05/14/21 09:06 Dose: 5 mg Documented by: ONEL Apixaban (Apixaban 5 Mg Tablet) 5 mg PO BID [facility] Last Admin: 05/14/21 09:06 Dose: 5 mg Documented by: ONEL Atorvastatin Calcium (Atorvastatin Calcium 80 Mg Tablet) 80 mg PO BEDTIME [facility] Last Admin: 05/13/21 20:09 Dose: 80 mg Documented by: ALLY Benzocaine (Throat Lozenge, Medicated Lozenge) 1 lozenge MUCOUS MEM Q2H PRN PRN Reason: Sore Throat Bumetanide (Bumetanide 1 Mg Tablet) 2 mg PO BID@0800,1700 [facility]; Protocol Last Admin: 05/14/21 09:05 Dose: 2 mg Documented by: ONEL Calcium Carbonate/Cholecalciferol (Calcium + Vitamin D 250 Mg Tablet) 500 mg PO BEDTIME [facility] Last Admin: 05/13/21 20:09 Dose: 500 mg Documented by: ALLY Carvedilol (Carvedilol 6.25 Mg Tablet) 6.25 mg PO BID [facility]; Protocol Last Admin: 05/14/21 09:06 Dose: 6.25 mg Documented by: ONEL Dextrose (Dextrose 50 % 25 Gm/50 Ml Vial) 25 gm IVPUSH Q15M PRN; Protocol PRN Reason: per Hypoglycemia Standing Ord. Last Admin: 05/13/21 08:12 Dose: 25 gm Documented by: ONEL Glucose (Glucose Gel 15 Gm Gel..Gram.) 15 gm PO Q15M PRN; Protocol PRN Reason: per Hypoglycemia Standing Ord. Heparin Sodium (Porcine) (Heparin Sodium,Porcine Flush 500 Unit/5 Ml Syringe) 500 unit [facility]@1645 [facility] Last Admin: 05/13/21 04:02 Dose: Not Given Documented by: HUMZA Non-Admin Reason: EDs missed documentation, pt got dialysis Hydralazine HCl (Hydralazine Hcl 25 Mg Tablet) 25 mg PO TID [facility]; Protocol Last Admin: 05/14/21 09:05 Dose: 25 mg Documented by: ONEL Loratadine (Loratadine 10 Mg Tablet) 10 mg PO Q48H [facility] Last Admin: 05/13/21 04:01 Dose: Not Given Documented by: HUMZA Non-Admin Reason: EDs missed documentation, pt got dialysis Magnesium Oxide (Magnesium Oxide 400 Mg Tablet) 400 mg PO DAILY [facility] Last Admin: 05/14/21 09:07 Dose: 400 mg Documented by: ONEL Omeprazole (Omeprazole 20 Mg Capsule.) 20 mg PO DAILY [facility] Last Admin: 05/14/21 09:05 Dose: 20 mg Documented by: ONEL Ondansetron HCl (Ondansetron Hcl 4 Mg/2 Ml Vial) 4 mg IVPUSH Q8H PRN PRN Reason: Nausea and Vomiting Last Admin: 05/13/21 22:11 Dose: 4 mg Documented by: ALLY Pharmacy Consult (Consult Rx Perform Med Rec) 1 each MISCELLANE ONCE PRN PRN Reason: Consult order Sodium Chloride (0.9 % Sodium Chloride Flush 3 Ml Syringe) 3 ml IVFLUSH QSHIFT [facility] Last Admin: 05/14/21 09:10 Dose: 3 ml Documented by: ONEL Vitamin D (Cholecalciferol (Vitamin D3) 25 Mcg Tablet) 25 mcg PO DAILY [facility] Last Admin: 05/14/21 09:07 Dose: 25 mcg Documented by: ONEL Labs CBC & Chem 7: 05/14/21 06:36 05/14/21 06:36 Labs: Laboratory Results - last 24 hr 05/13/21 05/13/21 05/13/21 07:59 08:22 11:49 MCV MCH MCHC RDW Plt Count MPV Absolute Nucleated RBC Nucleated RBC % (auto) Anion Gap Estim Creat Clear Calc Estimated GFR POC Glucose 48 L* 150 H 104 Random Glucose Calcium 05/14/21 05/14/21 06:36 06:36 MCV 89.2 MCH 27.5 MCHC 30.9 L RDW 15.5 Plt Count 113 L MPV 9.0 L Absolute Nucleated RBC 0.000 Nucleated RBC % (auto) 0.0 Anion Gap 11 L Estim Creat Clear Calc 8.2 Estimated GFR 7 POC Glucose Random Glucose 83 Calcium 7.6 L D Microbiology Microbiology Results: Microbiology 05/12/21 15:55 Gram Stain - Final Peritoneal Fluid Anaerobic Culture - Preliminary No growth to date. Body Fluid Culture - Preliminary No growth after 1 day Assessment and Plan (1) ESRD (end stage renal disease): Status: Acute (2) Anemia: Status: Acute Assessment and Plan: This is a 70 year old female with PMH of HTN, HLD, CAD with prior IA, Ischemic CMP, NSVT, Biotronic ICD, PAF, TIA. She has had worsening renal function over the last year now requiring dialysis ESRD admitted with worsening renal function with anasarca s/p permcath placement placement 05/12 dialysis 05/12, 05/13 nephrology following plan for outpatient HD at [facility] upon discharge diarrhea check cdif hypoglycemia no history of DM, hba1c 4.8. likely r/t to decreased po intake no further episodes of hypoglycemia Acute HFrEF, Echocardiogram from 05/11 showing EF of 45-50% s/p ICD for vtach initially treated with IV bumex, transitioned to po bumex daily weights, strict I&O cardiology following Abdominal distention/pain abdominal US showing ascites, worsening despite diuresis s/p paracentesis 05/12 with 5.4L removed no SBP. abdominal pain resolved. Transaminitis. chronically elevated follow LFT's Anemia Secondary to renal disease IV iron and Procrit added as per Nephrology recommendation H/H stable HTN Blood pressure controlled continue norvasc, coreg, hydralazine added 05/11 Paroxysmal atria fibrillation continue amiodorone, coreg Continue AC with Eliquis CAD statin and BB Attending Dr. Castellanos Full code DVT prophylaxis with Eliquis? Quality Stroke Does the patient have a stroke diagnosis?: No VTE Prior VTE?: No VTE Risk Level:: Medical - moderate - high VTE Device Contraindication: N/A - Device Ordered VTE Drug Contraindication: Treatment Not Indicated
[2021-05-14] MEDS: Loratadine 10 MG TABLET PO (16:03)
[2021-05-14 18:39] LABS: CDiff Gene PCR NEGATIVE (Negative)
[2021-05-14] MEDS: Atorvastatin Calcium 80 MG TABLET PO (20:20)
[2021-05-14] MEDS: Calcium + Vitamin D 250 MG TABLET 500 MG PO (20:20)
[2021-05-14] MEDS: Acetaminophen 325 MG TABLET 650 MG PO (22:01)
[2021-05-15 03:13] VITALS: BP 121/62; PULSE 62; RESP 20; TEMP 37; O2SAT 94
[2021-05-15 08:00] VITALS: BP 155/70; PULSE 64; RESP 18; TEMP 36.2; O2SAT 94
[2021-05-15] MEDS: 0.9 % Sodium Chloride Flush 3 ML SYRINGE IVFLUSH (10:35)
[2021-05-15] MEDS: Bumetanide 1 MG TABLET 2 MG PO (10:35)
[2021-05-15 10:36] VITALS: BP 155/70; PULSE 64
[2021-05-15] MEDS: Cholecalciferol (Vitamin D3) 25 MCG TABLET PO (10:36)
[2021-05-15] MEDS: Omeprazole 20 MG CAPSULE.DR PO (10:36)
[2021-05-15] MEDS: amLODIPine Besylate 5 MG TABLET PO (10:36)
[2021-05-15] MEDS: hydrALAZINE HCl 25 MG TABLET PO (10:36)
[2021-05-15 10:37] VITALS: BP 155/70; PULSE 64
[2021-05-15] MEDS: Magnesium Oxide 400 MG TABLET PO (10:37)
[2021-05-15] MEDS: Amiodarone HCL 200 MG TABLET 100 MG PO (10:37)
[2021-05-15] MEDS: Apixaban 5 MG TABLET PO (10:37)
[2021-05-15] MEDS: carvediloL 6.25 MG TABLET PO (10:37)
--- NOTE | 2021-05-15 11:27 | P.DS_ITS ---
DS: Providers Provider Date of Service: 05/15/21 Date of admission: 05/10/21 15:33 Date of discharge: 05/15/21 Primary care physician: Christiane Vernon MD Consults: 05/10/21 14:27 Consult to Nephrology Routine Consulting Provider: Tay Davison Reason for consultation: ? ESRD Has provider been notified: No 05/10/21 14:28 Consult to Cardiology Routine Consulting Provider: Yehuda Eastman Reason for consultation: anasarca, known to practice Has provider been notified: No Attending physician on discharge: Jorge L Hopper Discharging clinician: Christiane Tom DS: Diagnosis Discharge Diagnosis (1) ESRD (end stage renal disease): Status: Acute (2) Acute on chronic HFrEF (heart failure with reduced ejection fraction): Status: Acute (3) Anemia: Status: Acute (4) Paroxysmal atrial fibrillation: Status: Acute (5) HTN (hypertension): Status: Acute DS: Summary Hospital Course Hospital Course: From H&P on day of admission 70 year old women with hx of Renal disease presents from home with worsening anasarca. She was seen by her settlement technician yesterday and had lab work done and today told to come to the ED due to abnormal labs. She reported that she has had some increasing shortness of breath especially with activity and ambulation. She has a hx of ICD implantation and ESRD not on dialysis. She denied chest pain, fever, nausea, vomiting or diarrhea. Her creat was noted to be 9.16, AST/ALT 51, 34, BNP 550, CXR showing? Subsegmental opacity at the left lung base which could represent atelectasis or pneumonia. Vital signs stable. She received a dose of Bumex and Procrit. She will be admitted for further management of ESRD Hospital Course by problem: ESRD. The patient was admitted with worsening renal function with anasarca and increasing shortness of breath. She has a history of Iga nephropathy but her creatinine was increased from her baseline and has been progressively worsening over the past several months. She was treated for fluid overload with IV bumex which was eventually transitioned to po bumex. She was seen by nephrology and had a permcath placed on 05/12 for dialysis. She had dialysis on 05/12 and 05/13. She has been instructed to follow up tomorrow morning at [facility] in [place] for dialysis and training for home dialysis. This was discussed with her niece Chantal. Acute HFrEF, Echocardiogram from 05/11 showing EF of 45-50% s/p ICD for vtach. She was initially treated with IV bumex, transitioned to po bumex. She was seen in consultation by cardiology. No further inpatient workup requried. She should follow up with cardiology as an outpatient. Abdominal distention/pain. The patient was having abdominal pain. US showed ascites which was worsening despite diuresis. She underwent paracentesis 05/12 with 5.4L of fluid removed. Fluid studies did not show evidence for SBP. Following the paracentesis her abdominal pain resolved. Anemia. Secondary to renal disease and iron deficiency. She was treated with IV iron and Procrit. H/H has remained stable. Time Spent with Patient Time attestation: Total time spent providing and/or coordinating discharge services: Discharge coordination time: Greater than 30 minutes Quality: Stroke Does the patient have a stroke diagnosis?: No Physical Exam Vital Signs: Vital Signs: Last Vital Signs Temp 97.2 F 05/15/21 08:00 Pulse 64 05/15/21 10:37 Resp 18 05/15/21 08:00 BP 155/70 H 05/15/21 10:37 Pulse Ox 94 05/15/21 08:00 BMI result Body Mass Index 34.2 Const: General: cooperative, comfortable, no acute distress and alert Nutritional Appearance: well nourished Orientation/consciousness: patient oriented x3 HENMT: Head: Yes normocephalic and Yes atraumatic Eyes: Sclerae: sclerae normal Chest: Other: right side permcath Resp: Other: diminished Effort & Inspection: normal respiratory effort and no respiratory distress Cardio: Rate: regular rate Rhythm: regular rhythm GI: Other: soft, non-tender, non-disended Neuro: General: patient oriented x3 Cranial nerves: Yes CN's II-XII intact bilaterally and Yes Bilaterally intact EOM present Extrem: Other: able to move all 4 extremities spontaneously DS: Data Data Completed and Pending Labs on day of discharge: Laboratory Results - last 24 hr 05/14/21 13:26 C. difficile Tox B Gene NEGATIVE Preliminary micro results at discharge 05/12/21 15:55 Anaerobic Culture - Preliminary Peritoneal Fluid No growth to date. Discharge Plan Discharge Patient Disposition: Home, Self-Care Discharge Diagnosis: ESRD acute on chronic HFrEF abdominal pain anemia Referrals: Christiane Vernon MD [Primary Care Provider] - 1 Week Parker Hughes MD [Physician] - 1 Week Discharge Medications: New hydralazine 25 mg Tablet 25 mg PO TID 30 Days Qty: 90 RF: 0 bumetanide 1 mg Tablet 2 mg PO BID@0800,1700 30 Days Qty: 120 RF: 0 Continued amiodarone 200 mg tablet 100 mg PO DAILY 90 Days Qty: 45 RF: 3 magnesium oxide 400 mg (241.3 mg magnesium) tablet 400 mg PO DAILY 90 Days Qty: 90 RF: 1 carvedilol 6.25 mg tablet 6.25 mg PO BID 90 Days Qty: 180 RF: 1 Eliquis 5 mg tablet 5 mg PO BID Qty: 180 RF: 3 omeprazole 20 mg capsule,delayed release(DR/EC) 20 mg PO DAILY RF: 0 loratadine 10 mg tablet 10 mg PO Q48H RF: 0 calcium carbonate-vitamin D3 600 mg-10 mcg (400 unit) tablet 1 tab PO BEDTIME RF: 0 cholecalciferol (vitamin D3) 25 mcg (1,000 unit) capsule 25 mcg PO DAILY RF: 0 amlodipine 5 mg tablet 5 mg PO DAILY RF: 0 atorvastatin 80 mg tablet 80 mg PO BEDTIME RF: 0 Discontinued torsemide 20 mg tablet 40 mg PO DAILY RF: 0 Discharge Orders: Discharge Order (Routine); Ordered 05/15/21 Ordered By: Christiane Tom Activity on Discharge: As tolerated Stand Alone Forms: Patient Portal Discharge page Care Plan Goals: see below Health Concerns: end stage renal disease on dialysis ascites anemia related heart failure Plan of Treatment: stop taking torsemide and start taking bumex as prescribed start taking hydralazine as prescribed for better blood pressure control Please report to [facility] on [address] [place] [address] ([phone]) at 7 AM Sunday morning (05/16) for dialysis and training Assessment: see discharge summary Discharge Date/Time: 05/15/21 14:19
[2021-05-15 12:00] VITALS: BP 120/61; PULSE 66; RESP 17; TEMP 36.1; O2SAT 95
--- NOTE | 2021-05-15 12:23 | MHC.CM.PN ---
Patient is medically cleared for dc to home today, self care. CM addressed second IMM with Patient at bedside and the original has been given to her and a copy has been placed on the chart.
--- NOTE | 2021-05-15 13:26 | P.PNNP_ITS ---
Subjective Subjective Date of Service: 05/15/21 Principal diagnosis: pt awating to be DC tomorrow Physical Exam Vital Signs: Vital Signs: Last Vital Signs Temp 96.9 F 05/15/21 12:00 Pulse 66 05/15/21 12:00 Resp 17 05/15/21 12:00 BP 120/61 05/15/21 12:00 Pulse Ox 95 05/15/21 12:00 BMI result Body Mass Index 34.2 oral moist mucosa speaking in full sentences lungs clear s1s2 abd soft +Bs ext improved edema Objective Data Labs CBC & Chem 7: 05/14/21 06:36 05/14/21 06:36 Labs: Laboratory Results - last 24 hr 05/14/21 13:26 C. difficile Tox B Gene NEGATIVE Microbiology Microbiology Results: Microbiology 05/12/21 15:55 Peritoneal Fluid Gram Stain - Final 05/12/21 15:55 Peritoneal Fluid Anaerobic Culture - Preliminary No growth to date. 05/12/21 15:55 Peritoneal Fluid Body Fluid Culture - Final No growth after 2 days Procedures Date of Service Date of Service: 05/15/21 Assessment & Plan Assessment and plan (1) ESRD (end stage renal disease): Status: Acute (2) IgAN (IgA nephropathy): Status: Acute (3) CHF (congestive heart failure): Status: Acute Assessment and Plan: HD tomorrow at [facility] center [phone] patient aware, will go home on BENNY gage bring her to HD at 7 AM tomorrow Time Spent With Patient Time: Total time spent is greater than 50% in coordination of care (as documented) at patient's floor/unit and/or counseling patient: Progress Note: Quality Stroke Does the patient have a stroke diagnosis?: No
== END 2021-05-15 14:19 | disposition home or self-care (01) | DRG 291 ==
LOC: HO.ED 14:25 → HO.EDOVER 15:52 → HO.IMC 05-12 19:38
PROVIDERS: Internal Medicine Nephrology; Radiology Diagnostic Radiology; Admitting Provider Nurse Practitioner Acute Care; Emergency Provider Emergency Medicine; PCP Family Medicine; Visit Provider Physician Assistant Medical
PROC: 0JH63XZ Insertion of Tunneled Vascular Access Device into Chest Subcutaneous Tissue and Fascia, Percutaneous Approach (ICD-10-PCS; principal; 2021-05-12 13:30)
DX: I13.2 Hypertensive heart and chronic kidney disease with heart failure and with stage 5 chronic kidney disease, or end stage renal disease (principal); I50.21 Acute systolic (congestive) heart failure; N18.6 End stage renal disease; N17.9 Acute kidney failure, unspecified; N02.8 Recurrent and persistent hematuria with other morphologic changes; I25.10 Atherosclerotic heart disease of native coronary artery without angina pectoris; I25.5 Ischemic cardiomyopathy; Z20.822 Contact with and (suspected) exposure to COVID-19; D63.1 Anemia in chronic kidney disease; I48.0 Paroxysmal atrial fibrillation; E16.2 Hypoglycemia, unspecified; I25.2 Old myocardial infarction; Z95.810 Presence of automatic (implantable) cardiac defibrillator; Z88.6 Allergy status to analgesic agent; Z79.01 Long term (current) use of anticoagulants; Z79.899 Other long term (current) drug therapy
CPT/HCPCS: 36415; 36561; 49083; 71045; 76705; 80048; 80053; 80076; 82728; 82947; 83036; 83540; 83880; 84484; 85025; 85027; 85610; 85730; 86704; 86706; 86803; 87070; 87073; 87205; 87340; 87493; 87635; 89051; 90999; 92610; 93005; 93308; 96374; 96375; 97161; 99152; 99153; 99285; C1750; C1769; J0885; J2405; J2916

== ENCOUNTER → 2021-06-29 15:01 | Outpatient (BNVA) | payer MEDICARE, SELFPAY | PROVIDERS: PCP Family Medicine; Referring Provider Family Medicine; Visit Provider Nurse Practitioner Family | DX: Z01.810 Encounter for preprocedural cardiovascular examination (principal); I25.5 Ischemic cardiomyopathy; I25.10 Atherosclerotic heart disease of native coronary artery without angina pectoris; I48.0 Paroxysmal atrial fibrillation; I47.2 Ventricular tachycardia; I10 Essential (primary) hypertension; E78.5 Hyperlipidemia, unspecified; Z95.810 Presence of automatic (implantable) cardiac defibrillator | CPT/HCPCS: 99212 ==

== ENCOUNTER 2021-06-30 11:51 | Day surgery (SDC) | payer MEDICARE, SELFPAY ==
[2021-06-30] VITALS (7 sets, daily range): BP systolic 141–153; BP diastolic 67–70; PULSE 69–72; RESP 16; TEMP 36.6; O2SAT 96–97; BMI 27.5
--- NOTE | ~2021-06-30 | US_ITS ---
EXAMINATION: US-GUIDED PARACENTESIS CLINICAL INFORMATION: Ascites. COMPARISON: None TECHNIQUE: Following explaining ultrasound-guided paracentesis procedure, benefits and risk, a written consent was obtained. Patient was placed supine on ultrasound stretcher and pulmonary ultrasound imaging was obtained through the abdomen. An optimal site was selected along the right lower quadrant and marked. The marked site was cleaned and draped in the usual sterile manner. 1% lidocaine was injected at the puncture site. Through a small skin incision, a 4-[place] Sixth[employer]yeeh catheter was advanced into the peritoneal space. After observing fluid return, the stylet was removed and the catheter connected to the vacuum bottle via connecting cannula. After obtaining all fluid and observing normal fluid return, catheter was withdrawn and complete hemostasis achieved at puncture site. Sterile dressing applied postprocedure. Patient tolerated procedure extremely well. FINDINGS: On preliminary ultrasound imaging, there is moderate fluid seen in the peritoneal space. Approximately 5.9 L of fluid was drained from right lower quadrant. Part of this fluid was sent to lab as per physician request. US/US paracentesis abd w/image IMPRESSION: Successful ultrasound-guided paracentesis performed without immediate complications.
[2021-06-30 12:18] LABS: MANUAL DIFF FLAG NO
[2021-06-30 12:21] LABS: Basophils Absolute Auto 0.1 X10*3/uL (0.0-0.2); Basophils Percent Auto 0.7 % (0-2); Eosinophils Absolute Auto 0.3 X10*3/uL (0.0-0.4); Eosinophils Percent Auto 4.7 % (0-4); Hematocrit 29.1 % (37.0-47.0); Hemoglobin 8.6 g/dl (12.0-16.0); Imm Gran Abs Auto 0.04 X10*3/uL (0.00-0.03); Imm Gran Pct Auto 0.6 % (0.0-0.4); Lymphocytes Absolute Auto 1.5 X10*3/uL (1.2-4.9); Lymphocytes Percent Auto 21.2 % (20-40); Mean Corpuscular HGB Conc 29.6 g/dl (31.0-35.0); Mean Corpuscular Volume 91.5 fL (80.0-98.0); Mean Platelet Volume 9.7 fL (9.4-12.3); Monocytes Absolute Auto 0.8 X10*3/uL (0.1-1.2); Neutrophils Absolute Auto 4.4 x10*3/uL (2.0-8.3); Neutrophils Percent Auto 61.8 % (45-73); Platelet Count 155 X10*3/uL (160-400); Red Blood Count 3.18 X10*6/uL (4.20-5.50); Red Cell Distribution Width 15.6 % (11.0-16.0); White Blood Count 7.1 X10*3/uL (4.8-10.8)
[2021-06-30 12:27] LABS: INTERNATIONAL NORM RATIO 1.3 (0.9-1.1); Prothrombin Time 15.4 SEC (9.9-13.0)
[2021-06-30 12:30] LABS: Partial Thromboplastin Time 40.9 SEC (24.1-38.0)
[2021-06-30 14:51] LABS: MN% 94.6 %; PMN% 5.4 %; RBC Peritoneal Fluid 0.002 X10*6/uL; WBC Peritoneal Fluid 0.255 X10*3/uL
[2021-06-30] MEDS: Lidocaine HCl 1 % MPF 5 ML VIAL SUBCUT (15:12)
[2021-06-30 16:16] LABS: BF Shift QC OK YES; Lymphocyte Peritoneal Fl 92 %; Man Diluent Bkgrd OK YES; Monocytes Peritoneal Fl 5 %; Other Peritioneal Fl 2 %
[2021-07-01 07:28] LABS: LDH Peritoneal Fluid 102
[2021-07-01 07:37] LABS: Glucose Peritoneal Fluid 77
[2021-07-01 07:38] LABS: Albumin Peritoneal Fluid 0.8; Total Protein Peritoneal Fluid 2.4
== END 2021-06-30 16:01 | disposition home or self-care (01) ==
PROVIDERS: Radiology Diagnostic Radiology; PCP Family Medicine; Visit Provider Radiology Diagnostic Radiology
DX: R18.8 Other ascites (principal); E11.22 Type 2 diabetes mellitus with diabetic chronic kidney disease; I13.2 Hypertensive heart and chronic kidney disease with heart failure and with stage 5 chronic kidney disease, or end stage renal disease; I50.20 Unspecified systolic (congestive) heart failure; N02.8 Recurrent and persistent hematuria with other morphologic changes; N18.6 End stage renal disease; Z99.2 Dependence on renal dialysis; I48.0 Paroxysmal atrial fibrillation; Z79.01 Long term (current) use of anticoagulants; I25.10 Atherosclerotic heart disease of native coronary artery without angina pectoris; I25.5 Ischemic cardiomyopathy; I25.2 Old myocardial infarction; Z95.810 Presence of automatic (implantable) cardiac defibrillator; E78.5 Hyperlipidemia, unspecified; Z79.899 Other long term (current) drug therapy
CPT/HCPCS: 36415; 49083; 82042; 82945; 83615; 84157; 85025; 85610; 85730; 87070; 87073; 87205; 88112; 89051

== ENCOUNTER 2021-07-09 03:22 | Emergency (ER) | payer MEDICARE, SELFPAY ==
--- NOTE | ~2021-07-09 | CT_ITS ---
EXAMINATION: CT ABDOMEN AND PELVIS WITHOUT CONTRAST CLINICAL INFORMATION: Epigastric pain COMPARISON: 01/07/2019 TECHNIQUE: Multidetector volumetric imaging was performed from the superior aspect of the liver through the pubic symphysis. Sagittal and coronal reformatted images were obtained on the technologist's workstation. This CT examination was performed using dose optimization techniques as appropriate, variously including the following: *Automated exposure control *Adjustment of mA and/or kV according to patient size (this includes techniques or standardized protocols for targeted exams where dose is matched to indication/reason for exam; i.e. extremities or head) *Use of iterative reconstruction technique DLP: 531 mGy-cm FINDINGS: LUNG BASES: Clear lung bases. Enlarged heart with coronary artery calcifications. LIVER, GALLBLADDER, AND BILIARY TREE: The liver is normal in size, shape, and attenuation. No focal hepatic lesion or biliary ductal dilatation is present. Stones in the gallbladder lumen. No gallbladder wall thickening. PANCREAS: Unremarkable. SPLEEN: Unremarkable. ADRENAL GLANDS: Unremarkable. KIDNEYS AND URETERS: The kidneys are normal in size, shape, and attenuation. No hydronephrosis or hydroureter. Right lower pole 0.3 cm calculus is 7 cm from the posterior axillary line. BLADDER: Unremarkable. GASTROINTESTINAL TRACT: Moderate hiatal hernia. Wall thickening throughout the stomach, though this may be secondary to decompression. Normal caliber small bowel. No obstruction. Much of the colon is decompressed. No wall thickening. Moderate volume of ascites. ABDOMINAL WALL: No significant hernia is appreciated. LYMPH NODES: Normal. VASCULAR: Normal caliber aorta with mild atherosclerotic calcification. PELVIC VISCERA: No pelvic mass. OSSEOUS STRUCTURES: No acute or suspicious osseous abnormality. Degenerative changes of the spine. CT/CT abdomen pelvis wo con IMPRESSION: Moderate volume of ascites. Moderate hiatal hernia. Possible wall thickening of the stomach, although the appearance may be secondary to decompression. Gastritis is possible. Fleischner guidelines were followed.
[2021-07-09 03:30] VITALS: BP 144/90; BP 154/70; PULSE 65; PULSE 66; RESP 18; TEMP 36.8; O2SAT 98; O2SAT 99; BMI 27.5
--- NOTE | 2021-07-09 03:39 | ECG_ITS ---
Test Reason : ABD PAIN Blood Pressure : / mmHG Vent. Rate : 065 BPM Atrial Rate : 065 BPM P-R Int : 164 ms QRS Dur : 126 ms QT Int : 476 ms P-R-T Axes : 035 -41 -25 degrees QTc Int : 495 ms Normal sinus rhythm Left axis deviation Left ventricular hypertrophy with QRS widening ( R in aVL , [employer] product ) T wave abnormality, consider lateral ischemia Abnormal ECG When compared with ECG of 10-MAY-2021 13:12, No significant changes seen Referred By: Mabel Macias Electronically Signed By:NISHI CAMARENA
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
[2021-07-09 04:02] LABS: Basophils Percent Auto 0.4 % (0-2); Eosinophils Absolute Auto 0.2 X10*3/uL (0.0-0.4); Eosinophils Percent Auto 2.9 % (0-4); Hematocrit 25.1 % (37.0-47.0); Hemoglobin 7.5 g/dl (12.0-16.0); Imm Gran Abs Auto 0.03 X10*3/uL (0.00-0.03); Imm Gran Pct Auto 0.4 % (0.0-0.4); Lymphocytes Absolute Auto 1.5 X10*3/uL (1.2-4.9); Lymphocytes Percent Auto 21.1 % (20-40); MANUAL DIFF FLAG NO; Mean Corpuscular HGB Conc 29.9 g/dl (31.0-35.0); Mean Corpuscular Hemoglobin 27.2 pg (27.0-33.0); Mean Corpuscular Volume 90.9 fL (80.0-98.0); Monocytes Absolute Auto 0.8 X10*3/uL (0.1-1.2); Monocytes Percent Auto 11.7 % (2-11); Neutrophils Absolute Auto 4.4 x10*3/uL (2.0-8.3); Neutrophils Percent Auto 63.5 % (45-73); Platelet Count 122 X10*3/uL (160-400); Red Blood Count 2.76 X10*6/uL (4.20-5.50); White Blood Count 6.9 X10*3/uL (4.8-10.8)
[2021-07-09 04:27] LABS: Troponin-I High Sensitivity 17.3 ng/L (<3.5-17.0)
[2021-07-09 04:37] LABS: Alanine Aminotransferase 17 U/L (0-31); Albumin Level 2.6 g/dL (3.5-5.0); Alkaline Phosphatase 137 U/L (39-117); Anion Gap 15 (12-20); Aspartate Amino Transferase 27 U/L (5-31); Bilirubin Direct 0.2 mg/dL (0.0-0.5); Bilirubin Total 0.4 mg/dL (0.0-1.0); Blood Urea Nitrogen 33 mg/dL (9-16); Calcium 7.9 mg/dL (8.4-10.2); Carbon Dioxide 25 mmol/L (22-29); Chloride 105 mmol/L (96-108); Creatinine Clr Calc Pharmacy 6.3; Estimated Glomerular Filt Rate 6; Glucose Random 89 mg/dL (60-115); Lipase 245 U/L (8-78); Potassium 4.6 mmol/L (3.3-5.1); Sodium 140 mmol/L (135-145); Total Protein 6.4 g/dL (6.5-8.0)
[2021-07-09 04:54] VITALS: BP 156/66; PULSE 64; RESP 16; O2SAT 97
[2021-07-09] MEDS: traMADoL HCL 50 MG TABLET PO (04:54)
[2021-07-09] MEDS: Ondansetron ODT 4 MG TAB.RAPDIS TRANSLINGU (04:54)
[2021-07-09] MEDS: Magnesium Hydrox/Alum Hydrox 30 ML ORAL.SUSP 15 ML PO (05:07)
[2021-07-09] MEDS: Lidocaine HCl Viscous 2 % 15 ML SOLUTION MUCOUS MEM (05:07)
[2021-07-09 07:40] VITALS: BP 133/63; PULSE 62; RESP 16
== END 2021-07-09 09:14 | disposition home or self-care (01) ==
PROVIDERS: Emergency Provider Emergency Medicine
DX: R10.13 Epigastric pain (principal); I13.2 Hypertensive heart and chronic kidney disease with heart failure and with stage 5 chronic kidney disease, or end stage renal disease; N18.6 End stage renal disease; I50.23 Acute on chronic systolic (congestive) heart failure; D63.1 Anemia in chronic kidney disease; E78.5 Hyperlipidemia, unspecified; I48.0 Paroxysmal atrial fibrillation; Z99.2 Dependence on renal dialysis; Z79.02 Long term (current) use of antithrombotics/antiplatelets; Z79.01 Long term (current) use of anticoagulants
CPT/HCPCS: 36415; 74176; 80048; 80076; 83690; 84484; 85025; 93005; 99284

== ENCOUNTER 2021-07-20 13:15 | Outpatient (REF) | payer MEDICARE, SELFPAY ==
--- NOTE | ~2021-07-20 | CT_ITS ---
EXAMINATION: CT ABDOMEN WITHOUT CONTRAST CLINICAL INFORMATION: Abdominal pain. COMPARISON: CT abdomen and pelvis 07/09/2021. TECHNIQUE: Contiguous axial thin section helical images of the abdomen were performed without intravenous contrast. Oral contrast was administered. The data set was reformatted in the coronal and sagittal planes and reviewed on an independent workstation. This CT examination was performed using dose optimization techniques as appropriate, variously including the following: *Automated exposure control *Adjustment of mA and/or kV according to patient size (this includes techniques or standardized protocols for targeted exams where dose is matched to indication/reason for exam; i.e. extremities or head) *Use of iterative reconstruction technique DLP: 207 mGy-cm FINDINGS: LUNG BASES: There is a suggestion of scattered foci of ground-glass which may relate to air trapping. The lung bases are otherwise clear. There are no pleural effusions. The heart is globally enlarged and there is a partially visualized pacemaker and dialysis catheter in position. There is a small pericardial effusion which is similar to the prior. LIVER, GALLBLADDER, BILIARY TREE: There is a lobulated, nodular contour of the liver compatible with cirrhotic change. No focal lesions are identified on this noncontrast study. No intrahepatic duct dilation is seen. The gallbladder is physiologically distended and there are calcified gallstones within the fundus of the gallbladder. PANCREAS: Unremarkable. SPLEEN: Upper limits of normal for size measuring up to 12.7 cm in the axial plane. ADRENAL GLANDS AND KIDNEYS: Adrenal glands are unremarkable. The kidneys are normal in size and overall attenuation. There is a 2 mm nonobstructing calculus at the upper pole of left kidney, 5.4 cm in the posterior mid axillary line. There is a 3 mm right lower pole calculus measures approximately 7 mm from the posterior mid axillary line. There is a 1.2 cm cyst requiring no additional radiographic follow-up at the lower pole of the right kidney as well as a 1.4 cm parapelvic cyst at the upper pole of the right kidney. There is no hydronephrosis or hydroureter. GASTROINTESTINAL: There is a moderate hiatus hernia containing a portion of the proximal stomach, similar to prior. A small amount of ascites is seen within the hiatal hernia. The stomach, visualized small and large bowel are normal in course and caliber. There is a slightly thickened appearance of a segment of the ascending colon (image 38, series 3) which could potentially be secondary to peristalsis. Correlation could be made with most recent colonoscopy. Otherwise no bowel wall inflammatory changes There is a normal appendix. LYMPH NODES: Normal. There is a moderate volume of ascites which is similar to the prior study. VASCULAR: Aorta is normal in caliber. There is moderate scattered eccentric wall calcification. There is an otherwise unremarkable appearance of the vascular structures for a noncontrasted study. BONES: There is multilevel degenerative change of the imaged thoracolumbar spine including a rather prominent posteriorly-oriented disc osteophyte complex at the level of L1-L2. No acute or aggressive bony abnormality is identified. CT/CT abdomen wo con IMPRESSION: No specific acute findings to account for the patient's current presentation are seen. There is a moderate volume of ascites which is similar to the prior study and a cirrhotic appearance of the liver. Stable appearance of tiny bilateral nonobstructing renal calculi, cholelithiasis, and a moderate hiatus hernia. There is a questionable mildly thickened appearance of a short segment of the ascending colon which may be secondary to underdistention of the bowel/peristalsis. Correlation could be made with most recent colonoscopy. There is cardiomegaly, trace pericardial effusion and scattered foci of bibasilar groundglass which could be secondary to air trapping. Fleischner guidelines were followed.
[2021-07-20] MEDS: Barium Sulfate Oral (Berry) 450 ML ORAL.SUSP PO (15:45)
== END 2021-07-20 13:16 | disposition home or self-care (01) ==
LOC: HO.CT 13:15
PROVIDERS: Visit Provider Nurse Practitioner
DX: R10.9 Unspecified abdominal pain (principal)
CPT/HCPCS: 74150

== ENCOUNTER 2021-07-26 12:48 | Outpatient (REF) | payer MEDICARE, SELFPAY ==
--- NOTE | ~2021-07-26 | US_ITS ---
EXAMINATION: US THYROID CLINICAL INFORMATION: Thyroid nodules found on carotid ultrasound. COMPARISON: None TECHNIQUE: Linear transducer grayscale and color Doppler examination with attention to the region of the thyroid. FINDINGS: SIZE: Measurements of the thyroid lobes and nodules are given in sagittal, anteroposterior and transverse dimensions respectively. Right Thyroid Lobe: 4.8 x 2.0 x 2.2 cm, volume 11.1 mL. Parenchyma: The gland echotexture is heterogeneous. Thyroid vascularity is normal. Left Thyroid Lobe: 4.6 x 2.0 x 2.1 cm, volume 10.1 mL. Parenchyma: The gland echotexture is heterogeneous. Thyroid vascularity is normal. Isthmus: 0.3 cm in maximum AP dimension. Estimated total number of nodules greater than or equal to 1 cm: 2. [employer] Operator nodules are described as follows: 1. Location: Right superior. Size: 0.65 x 0.4 x 0.66 cm, volume 0.1 mL. Nodule characteristics: Composition: Mixed cystic and solid (1). Echogenicity: Hypoechoic (2). Shape: Not taller than wide (0). Margins: Smooth (0). Echogenic Foci: None (0). ACR TI-RADS total points: 3 ACR TI-RADS category: 3 2. Location: Right inferior. Size: 1.2 x 0.66 x 1.1 cm, volume 0.45 mL. Nodule characteristics: Composition: Mixed cystic and solid (1). Echogenicity: Hypoechoic (2). Shape: Not taller than wide (0). Margins: Smooth (0). Echogenic Foci: Macrocalcifications (1). ACR TI-RADS total points: 4 ACR TI-RADS category: 4 3. Location: Left superior. Size: 0.76 x 0.55 x 0.63 cm, volume 0.14 mL. Nodule characteristics: Composition: Mixed cystic and solid (1). Echogenicity: Hypoechoic (2). Shape: Not taller than wide (0). Margins: Smooth (0). Echogenic Foci: None (0). ACR TI-RADS total points: 3 ACR TI-RADS category: 3 4. Location: Left mid. Size: 0.97 x 0.43 x 0.88 cm, volume 0.19 mL. Nodule characteristics: Composition: Mixed cystic and solid (1). Echogenicity: Hypoechoic (2). Shape: Not taller than wide (0). Margins: Smooth (0). Echogenic Foci: None (0). ACR TI-RADS total points: 3 ACR TI-RADS category: 3 5. Location: Left inferior. Size: 1.5 x 1.1 x 1.1 cm, volume 0.92 mL. Nodule characteristics: Composition: Mixed cystic and solid (1). Echogenicity: Hypoechoic (2). Shape: Not taller than wide (0). Margins: Smooth (0). Echogenic Foci: None (0). ACR TI-RADS total points: 3 ACR TI-RADS category: 3 NODES: No lymphadenopathy is seen in the tissue surrounding the thyroid gland. US/US thyroid IMPRESSION: Multiple bilateral thyroid nodules with largest nodule measuring 1.2 cm and complex. Recommend short-term six-month to one-year follow-up. ACR TI-RADS RECOMMENDATION REFERENCE: Ultrasound-guided fine-needle aspiration, followup ultrasound, no further follow up. * TR1 (0 point) and TR 2 (2 points): No FNA or follow up * TR3 (3 points): FNA if more than or equal to 2.5 cm in maximum dimension, followup ultrasound in 1, 3 and 5 years if 1.5 to 2.4 cm in maximum dimension. * TR4 (4-6 points): FNA if more than or equal to 1.5 cm in maximum dimension, followup ultrasound in 1, 2, 3 and 5 years if 1 to 1.4 cm in maximum dimension. * TR5 (more than or equal to 7 points): FNA if more than or equal to 1 cm in maximum dimension, followup ultrasound every year for 5 years if 0.5 to 0.9 cm in maximum dimension. * TR3, TR4 or TR5 nodules that are below the size threshold for follow up receive no follow up.
== END 2021-07-26 12:49 | disposition home or self-care (01) ==
LOC: HO.US 12:48
PROVIDERS: PCP Family Medicine; Visit Provider Registered Nurse Community Health
DX: E04.1 Nontoxic single thyroid nodule (principal); R18.8 Other ascites
CPT/HCPCS: 76536

== ENCOUNTER 2021-08-12 12:11 | Outpatient (REF) | payer OTHER, SELFPAY ==
--- NOTE | ~2021-08-12 | US_ITS ---
EXAMINATION: US ABDOMEN COMPLETE CLINICAL INFORMATION: New onset ascites, paracentesis done 06/30/2021. COMPARISON: CT abdomen without contrast 07/20/2021. Ultrasound-guided paracentesis 06/30/2021. Ultrasound abdomen complete 05/10/2021. TECHNIQUE: Real-time imaging of the abdominal viscera. FINDINGS: PANCREAS: Normal. ABDOMINAL AORTA: Normal in caliber. There is evidence of atherosclerotic disease. INFERIOR VENA CAVA: Visualized portions are normal. LIVER: The liver is normal in size. Contour of the liver is slightly irregular questionable for changes of mild cirrhosis. Parenchymal echogenicity is normal. No focal hepatic lesion. There is no intrahepatic biliary duct dilatation seen. GALLBLADDER: The gallbladder is physiologically distended. Multiple mobile gallstones are present. The gallbladder wall is thickened measuring 0.6 cm. This may be related to liver disease. COMMON BILE DUCT: Normal in caliber measuring 0.3 cm in diameter. RIGHT KIDNEY: There are several cysts, largest measuring 2.1 x 1.7 x 1.9 cm in the upper pole. Renal pyramids appear prominent questionable for increased cortical echogenicity. No hydronephrosis or renal calculi. The kidney measures 10.5 cm in maximum dimension. LEFT KIDNEY: There is a 3 mm echogenic density in the upper pole suggestive of a stone. The renal arteries appear prominent questionable for renal cortical increased echogenicity. No hydronephrosis. The kidney measures 9.9 cm in maximum dimension. SPLEEN: The spleen is upper normal in size. There are calcifications in the spleen. The spleen measures 12.3 cm in maximum dimension. FREE FLUID: There is a small amount of ascites. US/US abdomen complete IMPRESSION: Mild cirrhotic changes of the liver. Small amount of ascites. Gallstones. Thickened edematous gallbladder wall. This may be related to patient's liver disease. Upper normal-size spleen. Small left renal stone. Question increased renal cortical echogenicity. Small right renal cysts.
== END 2021-08-12 12:12 | disposition home or self-care (01) ==
LOC: HO.US 12:11
PROVIDERS: PCP Family Medicine; Visit Provider Family Medicine
DX: R18.8 Other ascites (principal)
CPT/HCPCS: 76700

== ENCOUNTER 2021-08-29 13:01 | Outpatient (REF) | payer OTHER, SELFPAY ==
--- NOTE | ~2021-08-29 | MM_ITS ---
EXAMINATION: MM SCREENING DIGITAL BREAST TOMOSYNTHESIS, BILATERAL CLINICAL INFORMATION: Screening. Asymptomatic. The lifetime risk of breast cancer based on the Tyrer-Cuzick Model is 3%. COMPARISON: Mammography: 08/26/2020, 05/30/2019, 04/02/2018 TECHNIQUE: Digital breast tomosynthesis is performed in both the craniocaudal and mediolateral oblique views along with computer-aided detection (CAD). Synthesized 2D images are generated from the tomosynthesis. Additional left MLO view is provided. Technologist notes right upper chest external dialysis port, limiting [id number] on right MLO view. Exam tailored to circumstances. FINDINGS: There are scattered areas of fibroglandular density (ACR BI-RADS breast composition Category b). There are no significant masses, abnormal calcifications, or other abnormalities. Again, there are scattered bilateral vascular and some benign round calcifications. There is no developing density or architectural abnormality. Pacemaker generator overlies the left axilla on the MLO views. The right axilla is beyond the right MLO [id number] view. MM/MM tomosynthesis screening BI IMPRESSION: -No mammographic evidence of malignancy. -Exam tailored to circumstances (right dialysis port). ASSESSMENT: BI-RADS 2: Benign RECOMMENDATION: 1. Recommend correlation with routine clinical breast exam as usual. 2. Routine annual mammography screening. This patient's information was entered into a reminder system with a target due date for their next mammogram.
== END 2021-08-29 13:02 | disposition home or self-care (01) ==
LOC: HO.MAMMO 13:01
PROVIDERS: Visit Provider Family Medicine
DX: Z12.31 Encounter for screening mammogram for malignant neoplasm of breast (principal)
CPT/HCPCS: 77063; 77067

== ENCOUNTER 2022-01-29 20:39 | Inpatient (IN) | payer OTHER, SELFPAY ==
--- NOTE | ~2022-01-29 | CT_ITS ---
EXAMINATION: CT ABDOMEN AND PELVIS WITHOUT CONTRAST CLINICAL INFORMATION: Epigastric pain COMPARISON: 07/20/2021 TECHNIQUE: Multidetector volumetric imaging was performed from the superior aspect of the liver through the pubic symphysis. Sagittal and coronal reformatted images were obtained on the technologist's workstation. This CT examination was performed using dose optimization techniques as appropriate, variously including the following: *Automated exposure control *Adjustment of mA and/or kV according to patient size (this includes techniques or standardized protocols for targeted exams where dose is matched to indication/reason for exam; i.e. extremities or head) *Use of iterative reconstruction technique DLP: 425 mGy-cm FINDINGS: LUNG BASES: Bibasilar atelectasis. Prominent heart with cardiac pacer lead noted. Coronary artery calcifications. LIVER, GALLBLADDER, AND BILIARY TREE: The liver is normal in size, shape, and attenuation. No focal hepatic lesion or biliary ductal dilatation is present. Normal distended gallbladder with multiple internal stones. Mild adjacent inflammatory change with suspected wall thickening. PANCREAS: Unremarkable. SPLEEN: Unremarkable. ADRENAL GLANDS: Unremarkable. KIDNEYS AND URETERS: The kidneys are normal in size, shape, and attenuation. No hydronephrosis or hydroureter. There are 0.2 cm adjacent right lower pole renal calculi, 6.5 cm from the posterior axillary line. BLADDER: Unremarkable. GASTROINTESTINAL TRACT: Small hiatal hernia. Normal caliber small bowel. No obstruction. Normal appendix. Colonic diverticulosis without diverticulitis. No colonic wall thickening or acute inflammation. No free air or free fluid. ABDOMINAL WALL: No significant hernia is appreciated. LYMPH NODES: Normal. VASCULAR: Normal caliber aorta with mild atherosclerotic calcification. PELVIC VISCERA: Uterus not seen. No adnexal mass. OSSEOUS STRUCTURES: No acute or suspicious osseous abnormality. Degenerative changes throughout the spine. CT/CT abdomen pelvis wo IV con IMPRESSION: Cholelithiasis. Mild gallbladder wall thickening with adjacent inflammation. The appearance is concerning for cholecystitis. This can be evaluated with ultrasound. Nonobstructing right renal calculi. Fleischner guidelines were followed.
--- NOTE | ~2022-01-29 | US_ITS ---
EXAMINATION: US ABDOMEN LIMITED CLINICAL INFORMATION: Right upper quadrant pain. COMPARISON: CT 01/29/2022 TECHNIQUE: Real-time imaging of the right upper quadrant abdominal viscera. FINDINGS: PANCREAS: Normal. LIVER: The liver is normal in size. The liver contour is normal. There is diffuse increased liver parenchymal echogenicity, consistent with hepatic steatosis. No focal hepatic lesion. There is no intrahepatic biliary duct dilatation seen. GALLBLADDER: Sludge and stones within the gallbladder lumen. Gallbladder wall thickening measuring 0.4 cm . Pericholecystic fluid present. COMMON BILE DUCT: Normal in caliber measuring 0.2 cm in diameter. RIGHT KIDNEY: Increased cortical echogenicity. No hydronephrosis. No renal calculi or focal parenchymal lesions. The kidney measures 9.5 cm in maximum dimension. A few simple cysts are noted. No follow-up imaging recommended. FREE FLUID: None. US/US abdomen limited IMPRESSION: Abnormal gallbladder. Gallbladder sludge with stones. Wall thickening with adjacent inflammation. These findings are consistent with acute cholecystitis. Hepatic steatosis. Increased renal cortical echogenicity can be seen in the setting of medical renal disease.
--- NOTE | ~2022-01-29 | XR_ITS ---
EXAMINATION: XR CHEST CLINICAL INFORMATION: Cough COMPARISON: 05/10/2021 TECHNIQUE: Frontal view of the chest was obtained. FINDINGS: Left chest wall pacer with lead over the right ventricle. The lungs are well expanded. Central vascular prominence. Mild interstitial prominence. No pleural effusion or pneumothorax. Right axillary vascular stent. The cardiomediastinal silhouette is within normal limits. XR/XR chest 1V IMPRESSION: Central vascular prominence. Mild interstitial prominence most suggestive of edema.
[2022-01-29 20:48] VITALS: BP 122/79; PULSE 72; O2SAT 100; BMI 23.1
[2022-01-29 21:08] VITALS: BP 148/70; PULSE 70; RESP 14; TEMP 36.6; O2SAT 99
--- NOTE | 2022-01-29 21:13 | ECG_ITS ---
Test Reason : AB PAIN Blood Pressure : / mmHG Vent. Rate : 073 BPM Atrial Rate : 073 BPM P-R Int : 164 ms QRS Dur : 122 ms QT Int : 462 ms P-R-T Axes : 047 -38 -07 degrees QTc Int : 508 ms Normal sinus rhythm Left axis deviation Left ventricular hypertrophy with QRS widening ( R in aVL , Deshawn product ) Nonspecific T wave abnormality Abnormal ECG When compared with ECG of 09-JUL-2021 03:40, Non-specific change in ST segment in Anterior leads Nonspecific T wave abnormality has replaced inverted T waves in Lateral leads Referred By: Anisa Santana Electronically Signed By:ANGELA BECERRA
--- NOTE | 2022-01-29 21:14 | ED_ITS ---
HPI - Abdominal Pain General Chief Complaint: Abdominal Pain Stated Complaint: abd pain vomiting Time Seen by Provider: 01/29/22 21:06 Source: patient Mode of arrival: EMS History of Present Illness HPI narrative: Year old female with history of ESRD on dialysis (Sunday, Sunday, Sunday), CHF, TIA, paroxysmal atrial fibrillation arrives via EMS for evaluation of epigastric pain that started today and was associated with nausea and vomiting but denies any shortness of breath, diaphoresis, chest pain/palpitations, diarrhea, previous abdominal surgeries and states the pain remains constant in the epigastric. She denies any urinary pain/burning/frequency. Related Data Home Medications Medication Instructions Recorded Confirmed amlodipine 5 mg tablet 5 mg PO DAILY 04/20/20 06/29/21 atorvastatin 80 mg tablet 80 mg PO BEDTIME 04/20/20 06/29/21 cholecalciferol (vitamin D3) 25 25 mcg PO DAILY 04/20/20 06/29/21 mcg (1,000 unit) capsule calcium carbonate 600 mg-vitamin 1 tab PO BEDTIME 05/10/21 06/29/21 D3 10 mcg (400 unit) tablet loratadine 10 mg tablet 10 mg PO Q48H 05/10/21 06/29/21 omeprazole 20 mg capsule,delayed 20 mg PO DAILY 05/10/21 06/29/21 release Previous Rx's Medication Instructions Recorded apixaban 5 mg tablet (Eliquis) 5 mg PO BID #180 tabs 05/05/21 bumetanide 1 mg tablet 2 mg PO BID@0800,1700 30 days #120 05/15/21 tabs hydralazine 25 mg tablet 25 mg PO TID 30 days #90 tabs 05/15/21 carvedilol 6.25 mg tablet 6.25 mg PO BID #180 tabs 08/30/21 amiodarone 200 mg tablet 100 mg PO DAILY #45 tabs 11/16/21 magnesium oxide 400 mg (241.3 mg 400 mg PO DAILY #90 tabs 01/13/22 magnesium) tablet Allergies Allergy/AdvReac Type Severity Reaction Status Date / Time NSAIDS (Non-Steroidal Allergy Unknown Unknown Verified 07/09/21 03:29 Anti-Inflamma Review of Systems Review of Systems Pertinent positives and negatives as stated in HPI 10 point review of systems is otherwise negative. PMFSH Past Medical History Source: nursing notes reviewed Medical History CAD (coronary artery disease) ESRD (end stage renal disease) HTN (hypertension) Hyperlipidemia ICD (implantable cardioverter-defibrillator) in place Ischemic cardiomyopathy Paroxysmal atrial fibrillation Ventricular tachycardia Surgical History History of pubovaginal sling Hx of knee surgery Family History Family History Father No problems noted. Mother No problems noted. Social History Social History Household Members: None Do you presently have visiting nurse or other home services: Yes ([employer]) Unable to assess alcohol history related to: Unknown Patient Tobacco Use Status: Tobacco use Unknown Advance Directives: No service: No Current occupational status: disabled Physical Exam ED Vital Signs: Vital Signs - 24 hr 01/29/22 21:08 01/29/22 23:44 01/30/22 01:04 Temperature 97.8 F Pulse Rate 70 75 Respiratory Rate 14 20 Blood Pressure 148/70 H 157/73 H Pulse Oximetry 99 94 83 L Oxygen Delivery Method Room Air Room Air Room Air Oxygen Flow Rate 01/30/22 01:05 Temperature Pulse Rate Respiratory Rate Blood Pressure Pulse Oximetry 95 Oxygen Delivery Method Nasal Cannula Oxygen Flow Rate 2 BMI result Body Mass Index 23.1 VITAL SIGNS: Reviewed. GENERAL: Well developed, well nourished, in mild distress. HEAD: Normocephalic/atraumatic EYES: PERRLA, EOMI EARS: Ext canals without abnormality OROPHARYNX: no oral lesions noted, posterior pharynx clear LUNGS: Normal breath sounds. No adventitious sounds or accessory muscle use. SpO2<99> CARDIOVASCULAR: Regular rate and rhythm + murmur, no JVD or lower extremity edema. ABDOMEN: Soft, tenderness in right upper quadrant/epigastric without rebound, non-distended with bowel sounds. MUSCULOSKELETAL: No tenderness, deformities, or effusions noted on gross inspection. EXTREMITIES: No cyanosis, clubbing or edema; RIGHT UPPER EXTREMITY: There is a fistula, with bruit and thrill and no noted erythema or induration.. SKIN: Inspection of the skin reveals no rashes NEUROLOGIC: Alert and oriented x 4. Strength and sensation to light touch were grossly intact x 4. Course Course Course Narrative: 71-year-old female with history and clinical presentation consistent with epigastric pain and will evaluate for evidence of gastritis, pancreatitis, cholecystitis and lower clinical suspicion for cardiopulmonary in etiology. Review of all investigations without evidence of leukocytosis, but imaging c onsistent with cholecystitis at 0115 and patient had lactic acid/blood cult ure/antibiotics given. IV fluids were held at this time secondary to concomitant fluid overload. MDM - Abdominal Pain Lab Data Result diagrams: 01/29/22 21:17 01/29/22 21:17 Labs: Lab Results 01/29/22 01/29/22 01/29/22 Range/Units 21:17 21:17 21:17 WBC 5.7 (4.8-10.8) X10*3/uL RBC 4.13 L D (4.20-5.50) X10*6/uL Hgb 11.2 L D (12.0-16.0) g/dl Hct 38.0 D (37.0-47.0) % MCV 92.0 (80.0-98.0) fL MCH 27.1 (27.0-33.0) pg MCHC 29.5 L (31.0-35.0) g/dl RDW 16.2 H (11.0-16.0) % Plt Count 81 L D (160-400) X10*3/uL MPV 9.6 (9.4-12.3) fL Immature Gran % (Auto) 0.4 (0.0-0.4) % Neut % (Auto) 64.5 (45-73) % Lymph % (Auto) 20.8 (20-40) % Otero % (Auto) 11.1 H (2-11) % Eos % (Auto) 2.7 (0-4) % Baso % (Auto) 0.5 (0-2) % Lymph # (Auto) 1.2 (1.2-4.9) X10*3/uL Otero # (Auto) 0.6 (0.1-1.2) X10*3/uL Eos # (Auto) 0.2 (0.0-0.4) X10*3/uL Baso # (Auto) 0.0 (0.0-0.2) X10*3/uL Abs Immat Gran (auto) 0.02 (0.00-0.03) X10*3/uL Absolute Neuts (auto) 3.7 (2.0-8.3) x10*3/uL Absolute Nucleated RBC 0.000 (0.0-0.012) X10*3/uL Nucleated RBC % (auto) 0.0 (0.0-0.2) /100WBC Sodium 143 (135-145) mmol/L Potassium 5.2 H (3.3-5.1) mmol/L Chloride 100 (96-108) mmol/L Carbon Dioxide 26 (22-29) mmol/L Anion Gap 22 H (12-20) BUN 58 H D (9-16) mg/dL Creatinine 8.68 H* (0.5-1.4) mg/dL Estim Creat Clear Calc 4.9 Estimated GFR 4 Random Glucose 111 (60-115) mg/dL Lactic Acid (0.5-2.0) mmol/L Calcium 9.2 D (8.4-10.2) mg/dL Magnesium 2.3 (1.6-2.6) mg/dL Total Bilirubin 0.7 (0.0-1.0) mg/dL AST 20 (5-31) U/L ALT 11 (0-31) U/L Alkaline Phosphatase 148 H (39-117) U/L B-Natriuretic Peptide Cancelled Total Protein 7.3 (6.5-8.0) g/dL Albumin 3.5 D (3.5-5.0) g/dL Lipase 254 H (8-78) U/L COVID-19 ([facility]) (Negative) COVID-19 Clin Com 01/29/22 01/30/22 Range/Units 21:43 02:00 WBC (4.8-10.8) X10*3/uL RBC (4.20-5.50) X10*6/uL Hgb (12.0-16.0) g/dl Hct (37.0-47.0) % MCV (80.0-98.0) fL MCH (27.0-33.0) pg MCHC (31.0-35.0) g/dl RDW (11.0-16.0) % Plt Count (160-400) X10*3/uL MPV (9.4-12.3) fL Immature Gran % (Auto) (0.0-0.4) % Neut % (Auto) (45-73) % Lymph % (Auto) (20-40) % Otero % (Auto) (2-11) % Eos % (Auto) (0-4) % Baso % (Auto) (0-2) % Lymph # (Auto) (1.2-4.9) X10*3/uL Otero # (Auto) (0.1-1.2) X10*3/uL Eos # (Auto) (0.0-0.4) X10*3/uL Baso # (Auto) (0.0-0.2) X10*3/uL Abs Immat Gran (auto) (0.00-0.03) X10*3/uL Absolute Neuts (auto) (2.0-8.3) x10*3/uL Absolute Nucleated RBC (0.0-0.012) X10*3/uL Nucleated RBC % (auto) (0.0-0.2) /100WBC Sodium (135-145) mmol/L Potassium (3.3-5.1) mmol/L Chloride (96-108) mmol/L Carbon Dioxide (22-29) mmol/L Anion Gap (12-20) BUN (9-16) mg/dL Creatinine (0.5-1.4) mg/dL Estim Creat Clear Calc Estimated GFR Random Glucose (60-115) mg/dL Lactic Acid 0.9 (0.5-2.0) mmol/L Calcium (8.4-10.2) mg/dL Magnesium (1.6-2.6) mg/dL Total Bilirubin (0.0-1.0) mg/dL AST (5-31) U/L ALT (0-31) U/L Alkaline Phosphatase (39-117) U/L B-Natriuretic Peptide Total Protein (6.5-8.0) g/dL Albumin (3.5-5.0) g/dL Lipase (8-78) U/L COVID-19 ([facility]) Negative (Negative) COVID-19 Clin Com See Note ECG Data Attestation: I personally reviewed and interpreted this ECG as follows: Prior ECG tracings: available for review Interpretation: NSR, HR-73, no STEMI, MT within normal limits, QRS -122, QTC-508 Critical Care Time Critical Care Time Critical Care Time: Yes Total Critical Care Time: 30 Attestation: I personally attest to this time spent taking care of the patient. Discharge Plan Discharge Clinical Impression: Cholecystitis, ESRD (end stage renal disease) on dialysis, Hypoxia, CHF exacerbation Patient Disposition: Admitted As Inpatient
[2022-01-29 21:21] LABS: MANUAL DIFF FLAG NO
[2022-01-29 21:31] LABS: Basophils Percent Auto 0.5 % (0-2); Eosinophils Absolute Auto 0.2 X10*3/uL (0.0-0.4); Eosinophils Percent Auto 2.7 % (0-4); Hemoglobin 11.2 g/dl (12.0-16.0); Imm Gran Abs Auto 0.02 X10*3/uL (0.00-0.03); Imm Gran Pct Auto 0.4 % (0.0-0.4); Lymphocytes Absolute Auto 1.2 X10*3/uL (1.2-4.9); Lymphocytes Percent Auto 20.8 % (20-40); Mean Corpuscular HGB Conc 29.5 g/dl (31.0-35.0); Mean Corpuscular Hemoglobin 27.1 pg (27.0-33.0); Mean Platelet Volume 9.6 fL (9.4-12.3); Monocytes Absolute Auto 0.6 X10*3/uL (0.1-1.2); Monocytes Percent Auto 11.1 % (2-11); Neutrophils Absolute Auto 3.7 x10*3/uL (2.0-8.3); Neutrophils Percent Auto 64.5 % (45-73); Red Blood Count 4.13 X10*6/uL (4.20-5.50); Red Cell Distribution Width 16.2 % (11.0-16.0); White Blood Count 5.7 X10*3/uL (4.8-10.8)
[2022-01-29 21:38] LABS: Platelet Count 81 X10*3/uL (160-400)
[2022-01-29 22:01] LABS: Alanine Aminotransferase 11 U/L (0-31); Albumin Level 3.5 g/dL (3.5-5.0); Alkaline Phosphatase 148 U/L (39-117); Anion Gap 22 (12-20); Aspartate Amino Transferase 20 U/L (5-31); Bilirubin Total 0.7 mg/dL (0.0-1.0); Blood Urea Nitrogen 58 mg/dL (9-16); Calcium 9.2 mg/dL (8.4-10.2); Carbon Dioxide 26 mmol/L (22-29); Chloride 100 mmol/L (96-108); Creatinine Clr Calc Pharmacy 4.9; Estimated Glomerular Filt Rate 4; Glucose Random 111 mg/dL (60-115); Lipase 254 U/L (8-78); Potassium 5.2 mmol/L (3.3-5.1); Sodium 143 mmol/L (135-145); Total Protein 7.3 g/dL (6.5-8.0)
[2022-01-29 22:08] LABS: COVID-19 Test Negative (Negative)
[2022-01-29 22:27] LABS: Magnesium 2.3 mg/dL (1.6-2.6)
[2022-01-29] MEDS: Ondansetron ODT 4 MG TAB.RAPDIS TRANSLINGU (22:39)
[2022-01-29] MEDS: Magnesium Hydrox/Alum Hydrox 30 ML ORAL.SUSP PO (22:40)
[2022-01-29] MEDS: Lidocaine HCl Viscous 2 % 15 ML SOLUTION 10 ML MUCOUS MEM (22:40)
[2022-01-29 23:44] VITALS: BP 157/73; PULSE 75; RESP 20; O2SAT 94
[2022-01-30] VITALS (7 sets, daily range): BP systolic 133–164; BP diastolic 60–79; PULSE 64–78; RESP 16–26; TEMP 36.3–37.4; O2SAT 83–95
--- NOTE | 2022-01-30 02:06 | PM.IMHP ---
History of Present Illness Date of Service: 01/30/22 Chief Complaint: Nausea/vomiting 71-year-old female with a past medical history of hypertension, hyperlipidemia, CAD, CHF status post AICD, paroxysmal AFib on Eliquis, history of ventricular tachycardia, ESRD on hemodialysis presented to the hospital today with a chief complaint of nausea/abdominal discomfort. Patient reported that over the past 2 days she has been having epigastric pain associated nausea and vomiting. Denies any blood in the vomitus. Denies any diarrhea. Denies any blood in the stool. Patient denies any chest pain or palpitations. Reports mild shortness of breath. Denies any fever chills cough or sputum production. Denies any urinary symptoms. Review of all other systems is negative except mentioned above ER course: Per ER team patient's CT scan showed findings concerning for acute cholecystitis. Confirmed with the right upper quadrant ultrasound. Patient was afebrile. Patient was empirically given ceftriaxone and Flagyl. General surgery Dr. Ricci was notified-recommended admission to the medicine service. Mentioned that patient was also hypoxic with chest x-ray showing pulmonary congestion. Being planned to give IV Bumex. Admitted to the hospital for further management [facility] Medical History CAD (coronary artery disease) ESRD (end stage renal disease) HTN (hypertension) Hyperlipidemia ICD (implantable cardioverter-defibrillator) in place Ischemic cardiomyopathy Paroxysmal atrial fibrillation Ventricular tachycardia Family History Father No problems noted. Mother No problems noted. 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) Unable to assess alcohol history related to: Unknown Patient Tobacco Use Status: Tobacco use Unknown Advance Directives: No service: No Current occupational status: disabled Meds Allergies Allergy/AdvReac Type Severity Reaction Status Date / Time NSAIDS (Non-Steroidal Allergy Unknown Unknown Verified 07/09/21 03:29 Anti-Inflamma Active Medications: Current Medications Ceftriaxone Sodium 1 gm/ (Sodium Chloride) 50 mls @ 100 mls/hr IV ONCE ONE Stop: 01/30/22 02:12 Pharmacy Consult (Consult Rx Perform Med Rec) 1 each MISCELLANE ONCE PRN PRN Reason: Consult order Home Medications Medication Instructions Recorded Confirmed Last Taken Type amlodipine 5 mg tablet 5 mg PO DAILY 04/20/20 06/29/21 05/10/21 History atorvastatin 80 mg tablet 80 mg PO BEDTIME 04/20/20 06/29/21 05/09/21 History cholecalciferol (vitamin D3) 25 25 mcg PO DAILY 04/20/20 06/29/21 05/10/21 History mcg (1,000 unit) capsule calcium carbonate 600 mg-vitamin 1 tab PO BEDTIME 05/10/21 06/29/21 05/09/21 History D3 10 mcg (400 unit) tablet loratadine 10 mg tablet 10 mg PO Q48H 05/10/21 06/29/21 05/10/21 History omeprazole 20 mg capsule,delayed 20 mg PO DAILY 05/10/21 06/29/21 05/10/21 History release Physical Exam Vital Signs and Narrative: Vital Signs: Last Vital Signs Temp 97.8 F 01/29/22 21:08 Pulse 75 01/29/22 23:44 Resp 20 01/29/22 23:44 BP 157/73 H 01/29/22 23:44 Pulse Ox 95 01/30/22 01:05 O2 Del Method 01/30/22 01:05 O2 Flow Rate 2 01/30/22 01:05 BMI result Body Mass Index 23.1 Gen: Appears be in no acute distress HEENT: NCAT, Moist mucosa. Pulmonary: Vesicular breath sounds, fair air entry CVS: Normal S1-S2 Abdomen: BS+, Soft, Nontender Extremities: Warm well perfused Neuro: Alert and awake. Results Labs CBC and Chem 7: 01/29/22 21:01/29/22 21:17 Labs: Laboratory Results - last 24 hr 01/29/22 01/29/22 01/29/22 21:17 21:17 21:17 MCV 92.0 MCH 27.1 MCHC 29.5 L RDW 16.2 H Plt Count 81 L D MPV 9.6 Immature Gran % (Auto) 0.4 Neut % (Auto) 64.5 Lymph % (Auto) 20.8 [place] % (Auto) 11.1 H Eos % (Auto) 2.7 Baso % (Auto) 0.5 Lymph # (Auto) 1.2 [place] # (Auto) 0.6 Eos # (Auto) 0.2 Baso # (Auto) 0.0 Abs Immat Gran (auto) 0.02 Absolute Neuts (auto) 3.7 Absolute Nucleated RBC 0.000 Nucleated RBC % (auto) 0.0 Anion Gap 22 H Estim Creat Clear Calc 4.9 Estimated GFR 4 Random Glucose 111 Calcium 9.2 D Magnesium 2.3 Total Bilirubin 0.7 AST 20 ALT 11 Alkaline Phosphatase 148 H B-Natriuretic Peptide Cancelled Total Protein 7.3 Albumin 3.5 D Lipase 254 H COVID-19 (MITZI) COVID-19 Clin Com 01/29/22 21:43 MCV MCH MCHC RDW Plt Count MPV Immature Gran % (Auto) Neut % (Auto) Lymph % (Auto) [place] % (Auto) Eos % (Auto) Baso % (Auto) Lymph # (Auto) [place] # (Auto) Eos # (Auto) Baso # (Auto) Abs Immat Gran (auto) Absolute Neuts (auto) Absolute Nucleated RBC Nucleated RBC % (auto) Anion Gap Estim Creat Clear Calc Estimated GFR Random Glucose Calcium Magnesium Total Bilirubin AST ALT Alkaline Phosphatase B-Natriuretic Peptide Total Protein Albumin Lipase COVID-19 (MITZI) Negative COVID-19 Clin Com See Note Imaging Radiologist's Impressions: Impressions Chest X-Ray 01/29/22 21:55 IMPRESSION: Central vascular prominence. Mild interstitial prominence most suggestive of edema. Abdomen/Pelvis CT 01/29/22 22:28 IMPRESSION: Cholelithiasis. Mild gallbladder wall thickening with adjacent inflammation. The appearance is concerning for cholecystitis. This can be evaluated with ultrasound. Nonobstructing right renal calculi. Fleischner guidelines were followed. Abdomen Ultrasound 01/30/22 01:15 IMPRESSION: Abnormal gallbladder. Gallbladder sludge with stones. Wall thickening with adjacent inflammation. These findings are consistent with acute cholecystitis. Hepatic steatosis. Increased renal cortical echogenicity can be seen in the setting of medical renal disease. Assessment and Plan (1) Cholecystitis: Status: Acute (2) CHF (congestive heart failure): Status: Acute (3) ESRD (end stage renal disease) on dialysis: Status: Acute (4) Hypoxia: Status: Acute Plan Acute cholecystitis: General surgery was made aware-recommended admission to the medicine service Continue IV ceftriaxone and Flagyl ESRD: Patient on hemodialysis. Nephrology consult Continue home medications Diastolic CHF: Patient chest x-ray showed congestion Patient hypoxic requiring supplemental oxygen-breathing comfortably Will continue the patient on Bumex. Preop evaluation: Patient is high risk for high-risk surgery. Continue home beta-blockers in the perioperative period. Consulted Cardiology History of hypertension/hyperlipidemia: Hold home amlodipine/hydralazine for now. Continue home carvedilol. History of AFib: Continue home amiodarone. Hold home Eliquis in anticipation for surgery. DVT prophylaxis: SCD boots Code status: Full code Quality Stroke Does the patient have a stroke diagnosis?: No VTE Prior VTE?: No VTE Risk Level:: Medical - moderate - high VTE Device Contraindication: Treatment Not Indicated VTE Drug Contraindication: N/A - Med Ordered
[2022-01-30 02:22] LABS: Lactic Acid 0.9 mmol/L (0.5-2.0)
[2022-01-30 02:30] LABS: B Type Natriuretic Peptide 2547 pg/mL (<100)
[2022-01-30] MEDS: Bumetanide 1 MG/4 ML VIAL 2 MG IVPUSH (03:14)
[2022-01-30] MEDS: cefTRIAXone sodium 1 GM in 0.9 % Sodium Chloride 50 ML IV ×2 (03:15→21:14)
[2022-01-30] MEDS: metroNIDAZOLE/NS 500 MG/100 ML PIGGYBACK 100 MG IV ×3 (04:27→21:57)
[2022-01-30 06:49] LABS: MANUAL DIFF FLAG NO
[2022-01-30 06:55] LABS: Basophils Percent Auto 0.4 % (0-2); Eosinophils Percent Auto 0.3 % (0-4); Hematocrit 35.6 % (37.0-47.0); Hemoglobin 10.9 g/dl (12.0-16.0); Imm Gran Abs Auto 0.01 X10*3/uL (0.00-0.03); Imm Gran Pct Auto 0.1 % (0.0-0.4); Lymphocytes Absolute Auto 0.8 X10*3/uL (1.2-4.9); Lymphocytes Percent Auto 11.1 % (20-40); Mean Corpuscular HGB Conc 30.6 g/dl (31.0-35.0); Mean Corpuscular Hemoglobin 27.9 pg (27.0-33.0); Mean Corpuscular Volume 91.3 fL (80.0-98.0); Mean Platelet Volume 10.2 fL (9.4-12.3); Monocytes Absolute Auto 0.7 X10*3/uL (0.1-1.2); Monocytes Percent Auto 9.4 % (2-11); Neutrophils Absolute Auto 5.5 x10*3/uL (2.0-8.3); Neutrophils Percent Auto 78.7 % (45-73); Red Cell Distribution Width 16.3 % (11.0-16.0)
[2022-01-30 06:58] LABS: Platelet Count 74 X10*3/uL (160-400)
[2022-01-30 07:08] LABS: Anion Gap 22 (12-20); Blood Urea Nitrogen 62 mg/dL (9-16); Calcium 8.5 mg/dL (8.4-10.2); Carbon Dioxide 21 mmol/L (22-29); Chloride 101 mmol/L (96-108); Creatinine Clr Calc Pharmacy 4.8; Estimated Glomerular Filt Rate 4; Glucose Random 98 mg/dL (60-115); Potassium 5.4 mmol/L (3.3-5.1); Sodium 139 mmol/L (135-145)
--- NOTE | 2022-01-30 08:19 | P.CONGS_ITS ---
History of Present Illness Consult details Consult date: 01/30/22 <KARENA Carbajal - Last Filed: 01/30/22 08:41> Narrative: 71-year-old female with a past medical history of hypertension, hyperlipidemia, CAD, CHF status post AICD, paroxysmal AFib on Eliquis, history of ventricular tachycardia, ESRD on hemodialysis, presenting to the ED complaining of abdominal pain for more than 1 day. She reports the majority of her pain is right sided, endorses some nausea, no vomiting. No fevers at home. Last BM was yesterday, nonbloody. Denies any previous abdominal surgeries. No chest pain, no SOB at this time. During workup of pain, CT abdomen/pelvis showed findings concerning for cholecystitis, which was confirmed by RUQ US. Surgery was consulted for assistance with management. <KARENA Carbajal - Last Filed: 01/30/22 08:41> Review of Systems Constitutional: Constitutional: Reports as per HPI and Reports no additional constitutional complaints <KARENA Carbajal - Last Filed: 01/30/22 08:41> [facility] Past Medical History Medical History: Medical History (Updated 01/30/22 @ 09:56 by Lee Lanza MD) CAD (coronary artery disease) ESRD (end stage renal disease) HTN (hypertension) Hyperlipidemia ICD (implantable cardioverter-defibrillator) in place Ischemic cardiomyopathy Paroxysmal atrial fibrillation Ventricular tachycardia <KARENA Carbajal - Last Filed: 01/30/22 08:41> Family History Family History: Family History Father No problems noted. Mother No problems noted. 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) Unable to assess alcohol history related to: Unknown Patient Tobacco Use Status: Tobacco use Unknown Advance Directives: No service: No Current occupational status: disabled <KARENA Carbajal - Last Filed: 01/30/22 08:41> Meds Allergies/Adverse reactions: Allergies Allergy/AdvReac Type Severity Reaction Status Date / Time NSAIDS (Non-Steroidal Allergy Unknown Unknown Verified 07/09/21 03:29 Anti-Inflamma <KARENA Carbajal - Last Filed: 01/30/22 08:41> Active Medications: Current Medications Acetaminophen (Acetaminophen 325 Mg Tablet) 650 mg PO Q6H PRN PRN Reason: Pain, Mild (Pain Scale 1-3) Metronidazole (Flagyl) 500 mg in 100 mls @ 100 mls/hr IV Q8H JOHAN Ceftriaxone Sodium 1 gm/ (Sodium Chloride) 50 mls @ 100 mls/hr IV Q24H JOHAN Melatonin (Melatonin 3 Mg Tablet) 6 mg PO BEDTIME PRN PRN Reason: Insomnia Pharmacy Consult (Consult Rx Perform Med Rec) 1 each MISCELLANE ONCE PRN PRN Reason: Consult order Senna (Sennosides 8.6 Mg Tablet) 17.2 mg PO BEDTIME PRN PRN Reason: Constipation Sodium Chloride (0.9 % Sodium Chloride Flush 3 Ml Syringe) 3 ml IVFLUSH QSHIFT JOHAN <KARENA Carbajal - Last Filed: 01/30/22 08:41> Home medications: Home Medications Medication Instructions Recorded Confirmed Last Taken Type amlodipine 5 mg tablet 5 mg PO DAILY 04/20/20 06/29/21 05/10/21 History atorvastatin 80 mg tablet 80 mg PO BEDTIME 04/20/20 01/30/22 05/09/21 History cholecalciferol (vitamin D3) 25 25 mcg PO DAILY 04/20/20 06/29/21 05/10/21 History mcg (1,000 unit) capsule calcium carbonate 600 mg-vitamin 1 tab PO BEDTIME 05/10/21 01/30/22 05/09/21 History D3 10 mcg (400 unit) tablet loratadine 10 mg tablet 10 mg PO Q48H 05/10/21 01/30/22 05/10/21 History omeprazole 20 mg capsule,delayed 20 mg PO DAILY 12/01/30/22 05/10/21 History release lidocaine-prilocaine 2.5 %-2.5 % 1 appl topical 3XW prior to 01/30/22 01/30/22 Unknown History topical cream dialysis <KARENA Carbajal - Last Filed: 01/30/22 08:41> Physical Exam Vital Signs: Vital Signs: Last Vital Signs Temp 97.8 F 01/29/22 21:08 Pulse 76 01/30/22 07:31 Resp 22 H 01/30/22 07:31 BP 138/64 01/30/22 07:31 Pulse Ox 94 01/30/22 07:31 O2 Del Method 01/30/22 07:31 O2 Flow Rate 2 01/30/22 02:26 BMI result Body Mass Index 23.1 <KARENA Carbajal - Last Filed: 01/30/22 08:41> Const: General: no acute distress <KARENA Carbajal - Last Filed: 01/30/22 08:41> GI: Other: abdomen soft, tender in upper abdomen with voluntary guarding upon RUQ palpation, no rebound tenderness <KARENA Carbajal - Last Filed: 01/30/22 08:41> Extrem: Other: no lower extremity edema <KARENA Carbajal - Last Filed: 01/30/22 08:41> Results Labs Result diagrams: : 01/30/22 06:42 01/30/22 06:42 <KARENA Carbajal - Last Filed: 01/30/22 08:41> Labs: Abnormal lab results 01/29/22 01/29/22 01/30/22 Range/Units 21:17 21:17 02:03 RBC 4.13 L D (4.20-5.50) X10*6/uL Hgb 11.2 L D (12.0-16.0) g/dl Hct (37.0-47.0) % MCHC 29.5 L (31.0-35.0) g/dl RDW 16.2 H (11.0-16.0) % Plt Count 81 L D (160-400) X10*3/uL Neut % (Auto) (45-73) % Lymph % (Auto) (20-40) % [place] % (Auto) 11.1 H (2-11) % Lymph # (Auto) (1.2-4.9) X10*3/uL Potassium 5.2 H (3.3-5.1) mmol/L Carbon Dioxide (22-29) mmol/L Anion Gap 22 H (12-20) BUN 58 H D (9-16) mg/dL Creatinine 8.68 H* (0.5-1.4) mg/dL Alkaline Phosphatase 148 H (39-117) U/L B-Natriuretic Peptide 2547 H (<100) pg/mL Lipase 254 H (8-78) U/L 01/30/22 01/30/22 Range/Units 06:42 06:42 RBC 3.90 L (4.20-5.50) X10*6/uL Hgb 10.9 L (12.0-16.0) g/dl Hct 35.6 L (37.0-47.0) % MCHC 30.6 L (31.0-35.0) g/dl RDW 16.3 H (11.0-16.0) % Plt Count 74 L (160-400) X10*3/uL Neut % (Auto) 78.7 H (45-73) % Lymph % (Auto) 11.1 L (20-40) % [place] % (Auto) (2-11) % Lymph # (Auto) 0.8 L (1.2-4.9) X10*3/uL Potassium 5.4 H (3.3-5.1) mmol/L Carbon Dioxide 21 L (22-29) mmol/L Anion Gap 22 H (12-20) BUN 62 H (9-16) mg/dL Creatinine 9.04 H* (0.5-1.4) mg/dL Alkaline Phosphatase (39-117) U/L B-Natriuretic Peptide (<100) pg/mL Lipase (8-78) U/L Short CBC 01/29/22 01/30/22 Range/Units 21:17 06:42 WBC 5.7 7.0 (4.8-10.8) X10*3/uL Hgb 11.2 L D 10.9 L (12.0-16.0) g/dl Hct 38.0 D 35.6 L (37.0-47.0) % Plt Count 81 L D 74 L (160-400) X10*3/uL BMP 01/29/22 01/30/22 21:17 06:42 Sodium 143 139 Potassium 5.2 H 5.4 H Chloride 100 101 Carbon Dioxide 26 21 L BUN 58 H D 62 H Creatinine 8.68 H* 9.04 H* Calcium 9.2 D 8.5 D Liver Function 01/29/22 Range/Units 21:17 Total Bilirubin 0.7 (0.0-1.0) mg/dL AST 20 (5-31) U/L ALT 11 (0-31) U/L Alkaline Phosphatase 148 H (39-117) U/L Albumin 3.5 D (3.5-5.0) g/dL All other labs normal. <KARENA Carbajal - Last Filed: 01/30/22 08:41> Imaging Additional studies: Date of Service: 01/29/22 Procedure(s): CT abdomen pelvis wo IV con Accession Number(s): [id number] cc: Anisa Santana MD~ EXAMINATION: CT ABDOMEN AND PELVIS WITHOUT CONTRAST? CLINICAL INFORMATION: Epigastric pain? COMPARISON: 07/20/2021? TECHNIQUE: Multidetector volumetric imaging was performed from the superior aspect of the liver through the pubic symphysis. Sagittal and coronal reformatted images were obtained on the technologist's workstation.? This CT examination was performed using dose optimization techniques as appropriate, variously including the following: *Automated exposure control *Adjustment of mA and/or kV according to patient size (this includes techniques or standardized protocols for targeted exams where dose is matched to indication/reason for exam; i.e. extremities or head) *Use of iterative reconstruction technique DLP: 425 mGy-cm FINDINGS: LUNG BASES: Bibasilar atelectasis. Prominent heart with cardiac pacer lead noted. Coronary artery calcifications.? LIVER, GALLBLADDER, AND BILIARY TREE: The liver is normal in size, shape, and attenuation. No focal hepatic lesion or biliary ductal dilatation is present. Normal distended gallbladder with multiple internal stones. Mild adjacent inflammatory change with suspected wall thickening.? PANCREAS: Unremarkable.? SPLEEN: Unremarkable.? ADRENAL GLANDS: Unremarkable.? KIDNEYS AND URETERS: The kidneys are normal in size, shape, and attenuation. No hydronephrosis or hydroureter. There are 0.2 cm adjacent right lower pole renal calculi, 6.5 cm from the posterior axillary line. BLADDER: Unremarkable.? GASTROINTESTINAL TRACT: Small hiatal hernia. Normal caliber small bowel. No obstruction. Normal appendix. Colonic diverticulosis without diverticulitis. No colonic wall thickening or acute inflammation. No free air or free fluid.? ABDOMINAL WALL: No significant hernia is appreciated.? LYMPH NODES: Normal. VASCULAR: Normal caliber aorta with mild atherosclerotic calcification. PELVIC VISCERA: Uterus not seen. No adnexal mass.? OSSEOUS STRUCTURES: No acute or suspicious osseous abnormality. Degenerative changes throughout the spine.? CT/CT abdomen pelvis wo IV con IMPRESSION: Cholelithiasis. Mild gallbladder wall thickening with adjacent inflammation. The appearance is concerning for cholecystitis. This can be evaluated with ultrasound. ? Nonobstructing right renal calculi.? ? Fleischner guidelines were followed. Date of Service: 01/30/22 Procedure(s): US abdomen limited Accession Number(s): [id number] cc: Anisa Santana MD~ EXAMINATION: US ABDOMEN LIMITED CLINICAL INFORMATION: Right upper quadrant pain. COMPARISON: CT 01/29/2022 TECHNIQUE: Real-time imaging of the right upper quadrant abdominal viscera. FINDINGS: PANCREAS: Normal. LIVER: The liver is normal in size. The liver contour is normal. There is diffuse increased liver parenchymal echogenicity, consistent with hepatic steatosis.? No focal hepatic lesion. There is no intrahepatic biliary duct dilatation seen. GALLBLADDER:? Sludge and stones within the gallbladder lumen. Gallbladder wall thickening measuring 0.4 cm . Pericholecystic fluid present. COMMON BILE DUCT: Normal in caliber measuring 0.2 cm in diameter. RIGHT KIDNEY: Increased cortical echogenicity. No hydronephrosis. No renal calculi or focal parenchymal lesions. The kidney measures 9.5 cm in maximum dimension. A few simple cysts are noted. No follow-up imaging recommended. FREE FLUID: None. US/US abdomen limited IMPRESSION: Abnormal gallbladder. Gallbladder sludge with stones. Wall thickening with adjacent inflammation. These findings are consistent with acute cholecystitis. ? Hepatic steatosis. ? Increased renal cortical echogenicity can be seen in the setting of medical renal disease. <KARENA Carbajal - Last Filed: 01/30/22 08:41> Assessment and Plan (1) Cholecystitis: Status: Acute <KARENA Carbajal - Last Filed: 01/30/22 08:41> Patient with multiple medical problems Admitted for abdominal pain Imaging studies show suggestion of cholecystitis For hemodialysis today in view of end-stage renal disease IV antibiotics If she does not respond well, will proceed with cholecystectomy versus tube cholecystostomy Exam benign Patient seen and examined independently Agree with KARENA Youssef' note Discussed with hospitalist service Will follow closely <Bradly Romano MD - Last Filed: 01/30/22 11:32> 71-year-old female with a past medical history of hypertension, hyperlipidemia, CAD, CHF status post AICD, paroxysmal AFib on Eliquis, history of ventricular tachycardia, ESRD on hemodialysis, admitted with abdominal pain; CT and US showed cholecystitis. Pt has been started on IV abx (ceftriaxone, Flagyl). For now will plan to continue NPO, abx. Monitor abdominal exam. Will follow closely. Pt is scheduled for HD today. Pt is likely high risk for surgery . Possible CCY vs C-tube depending on clinical course. Management of medical issues per primary team. Discussed with Dr. Romano. <KARENA Carbajal - Last Filed: 01/30/22 08:41> Procedures Date of Service Date of Service: 01/30/22 <KARENA Carbajal - Last Filed: 01/30/22 08:41>
[2022-01-30] MEDS: 0.9 % Sodium Chloride Flush 3 ML SYRINGE IVFLUSH (09:25)
--- NOTE | 2022-01-30 09:38 | P.CONCA_ITS ---
History of Present Illness History of Present Illness Date of Service: 01/30/22 Chief complaint: Acute cholecysitis Narrative: This is a cardiology consultation regarding preoperative risk stratification for gallbladder surgery. Patient is generally seen by Dr. Adams. More recently, seen by Antonieta Barrios. According to office notes, has multiple medical comorbidities including coronary disease with prior [place], ischemic cardiomyopathy, NSVT, Biotronik ICD, atrial fibrillation, TIA among others. Current admission is for abdominal discomfort and nausea. She is thought to have acute c holecystitis. We have been asked to see her from cardiac standpoint for possible surgery. She denies any clear cardiac symptoms at this time. Discussed with her using automotive parts interpreter. No anginal-type symptoms or shortness of breath or in fact anything cardiac related at all. Does not seem t hat she is too active at baseline. Review of Systems Review of Systems: Yes all other systems are reviewed and are negative Constitutional: Constitutional: Reports as per HPI Eyes: Eyes: Reports as per HPI ENT: Reports as per HPI Cardiovascular: Cardiovascular: Reports as per HPI, Denies acrocyanosis, Denies cool extremities, Denies chest pain, Denies leg edema, Denies lightheadedness, Denies palpitations and Denies dyspnea Respiratory: Respiratory: Reports as per HPI, Reports no additional respiratory complaints and Denies dyspnea Gastrointestinal: Gastrointestinal: Reports as per HPI, Reports no additional gastrointestinal complaints and Reports abdominal pain Genitourinary: Genitourinary: Reports as per HPI Musculoskeletal: Musculoskeletal: Reports no additional musculoskeletal complaints and Reports as per HPI Integumentary/Breasts: Skin/Breast: Reports system reviewed and no additional complaints, except as docu Neurologic: Reports system reviewed and no additional complaints, except as documented and Reports as per HPI Psychiatric: Psychiatric: Reports no additional psychiatric complaints and Reports as per HPI Endocrine: Endocrine: Reports no additional endocrine complaints, Reports as per HPI and Denies palpitations Hematologic/Lymphatic: Hematologic/Lymphatic: Reports no additional hematologic/lymphatic complaints and Reports as per HPI Allergic/Immunologic: Allergic/Immunologic: Reports no additional allergic/immunologic complaints and Reports as per HPI [facility] Past Medical History Medical History (Updated 01/30/22 @ 09:56 by Lee Lanza MD) CAD (coronary artery disease) ESRD (end stage renal disease) HTN (hypertension) Hyperlipidemia ICD (implantable cardioverter-defibrillator) in place Ischemic cardiomyopathy Paroxysmal atrial fibrillation Ventricular tachycardia Family History Family History Father No problems noted. Mother No problems noted. Surgical History Surgical History History of pubovaginal sling Hx of knee surgery Social History Social History Household Members: None Do you presently have visiting nurse or other home services: Yes (GUEST ASSOCIATE) Unable to assess alcohol history related to: Unknown Patient Tobacco Use Status: Tobacco use Unknown Advance Directives: No service: No Current occupational status: disabled Meds Allergies Allergy/AdvReac Type Severity Reaction Status Date / Time NSAIDS (Non-Steroidal Allergy Unknown Unknown Verified 07/09/21 03:29 Anti-Inflamma Active Medications: Current Medications Acetaminophen (Acetaminophen 325 Mg Tablet) 650 mg PO Q6H PRN PRN Reason: Pain, Mild (Pain Scale 1-3) Metronidazole (Flagyl) 500 mg in 100 mls @ 100 mls/hr IV Q8H JOHAN Ceftriaxone Sodium 1 gm/ (Sodium Chloride) 50 mls @ 100 mls/hr IV Q24H JOHAN Melatonin (Melatonin 3 Mg Tablet) 6 mg PO BEDTIME PRN PRN Reason: Insomnia Pharmacy Consult (Consult Rx Perform Med Rec) 1 each MISCELLANE ONCE PRN PRN Reason: Consult order Senna (Sennosides 8.6 Mg Tablet) 17.2 mg PO BEDTIME PRN PRN Reason: Constipation Sodium Chloride (0.9 % Sodium Chloride Flush 3 Ml Syringe) 3 ml IVFLUSH QSHIFT [facility] Last Admin: 01/30/22 09:25 Dose: 3 ml Home Medications Medication Instructions Recorded Confirmed Last Taken Type amlodipine 5 mg tablet 5 mg PO DAILY 04/20/20 06/29/21 05/10/21 History atorvastatin 80 mg tablet 80 mg PO BEDTIME 04/20/20 06/29/21 05/09/21 History cholecalciferol (vitamin D3) 25 25 mcg PO DAILY 04/20/20 06/29/21 05/10/21 History mcg (1,000 unit) capsule calcium carbonate 600 mg-vitamin 1 tab PO BEDTIME 05/10/21 06/29/21 05/09/21 History D3 10 mcg (400 unit) tablet loratadine 10 mg tablet 10 mg PO Q48H 05/10/21 06/29/21 05/10/21 History omeprazole 20 mg capsule,delayed 20 mg PO DAILY 05/10/21 06/29/21 05/10/21 History release Physical Exam Vital Signs: Vital Signs: Last Vital Signs Temp 97.8 F 01/29/22 21:08 Pulse 76 01/30/22 07:31 Resp 22 H 01/30/22 07:31 BP 138/64 01/30/22 07:31 Pulse Ox 94 01/30/22 07:31 O2 Del Method 01/30/22 07:31 O2 Flow Rate 2 01/30/22 02:26 BMI result Body Mass Index 23.1 Const: General: comfortable and no acute distress Orienta tion/consciousness: patient oriented x3 HEENT: Other: Unremarkable Head: Yes normal to inspection Neck: Neck: Yes normal visual inspection Chest: Chest palpation & inspection: normal inspection of the chest Resp: Auscultation: clear to auscultation bilaterally Cardio: Palpation: normal PMI Heart sounds: S1 normal heart sound present, S2 normal heart sound present, no gallops, Murmur heart sound present systolic early, II/, at the apex and at the right sternal border and no rubs GI: Palpation (GI): Soft to palpation Back/Spine/Pelvis: Other: unremarkable Skin: General skin exam: no rashes or lesions noted Neuro: General: patient oriented x3 Extrem: General: Yes normal to inspection Psych: Mental Status: mental status grossly normal Objective Labs and Meds Result diagrams: 01/30/22 06:42 01/30/22 06:42 Lab results: Laboratory Results - last 24 hr 01/29/22 01/29/22 01/29/22 21:17 21:17 21:17 WBC 5.7 RBC 4.13 L D Hgb 11.2 L D Hct 38.0 D MCV 92.0 MCH 27.1 MCHC 29.5 L RDW 16.2 H Plt Count 81 L D MPV 9.6 Immature Gran % (Auto) 0.4 Neut % (Auto) 64.5 Lymph % (Auto) 20.8 Kaufman % (Auto) 11.1 H Eos % (Auto) 2.7 Baso % (Auto) 0.5 Lymph # (Auto) 1.2 Kaufman # (Auto) 0.6 Eos # (Auto) 0.2 Baso # (Auto) 0.0 Abs Immat Gran (auto) 0.02 Absolute Neuts (auto) 3.7 Absolute Nucleated RBC 0.000 Nucleated RBC % (auto) 0.0 Sodium 143 Potassium 5.2 H Chloride 100 Carbon Dioxide 26 Anion Gap 22 H BUN 58 H D Creatinine 8.68 H* Estim Creat Clear Calc 4.9 Estimated GFR 4 Random Glucose 111 Lactic Acid Calcium 9.2 D Magnesium 2.3 Total Bilirubin 0.7 AST 20 ALT 11 Alkaline Phosphatase 148 H B-Natriuretic Peptide Cancelled Total Protein 7.3 Albumin 3.5 D Lipase 254 H COVID-19 (MITZI) COVID-19 Clin Com 01/29/22 01/30/22 01/30/22 21:43 02:00 02:03 WBC RBC Hgb Hct MCV MCH MCHC RDW Plt Count MPV Immature Gran % (Auto) Neut % (Auto) Lymph % (Auto) Kaufman % (Auto) Eos % (Auto) Baso % (Auto) Lymph # (Auto) Kaufman # (Auto) Eos # (Auto) Baso # (Auto) Abs Immat Gran (auto) Absolute Neuts (auto) Absolute Nucleated RBC Nucleated RBC % (auto) Sodium Potassium Chloride Carbon Dioxide Anion Gap BUN Creatinine Estim Creat Clear Calc Estimated GFR Random Glucose Lactic Acid 0.9 Calcium Magnesium Total Bilirubin AST ALT Alkaline Phosphatase B-Natriuretic Peptide 2547 H Total Protein Albumin Lipase COVID-19 (MITZI) Negative COVID-19 [employer] Com See Note 01/30/22 01/30/22 06:42 06:42 WBC 7.0 RBC 3.90 L Hgb 10.9 L Hct 35.6 L MCV 91.3 MCH 27.9 MCHC 30.6 L RDW 16.3 H Plt Count 74 L MPV 10.2 Immature Gran % (Auto) 0.1 Neut % (Auto) 78.7 H Lymph % (Auto) 11.1 L Kaufman % (Auto) 9.4 Eos % (Auto) 0.3 Baso % (Auto) 0.4 Lymph # (Auto) 0.8 L Kaufman # (Auto) 0.7 Eos # (Auto) 0.0 Baso # (Auto) 0.0 Abs Immat Gran (auto) 0.01 Absolute Neuts (auto) 5.5 Absolute Nucleated RBC 0.000 Nucleated RBC % (auto) 0.0 Sodium 139 Potassium 5.4 H Chloride 101 Carbon Dioxide 21 L Anion Gap 22 H BUN 62 H Creatinine 9.04 H* Estim Creat Clear Calc 4.8 Estimated GFR 4 Random Glucose 98 Lactic Acid Calcium 8.5 D Magnesium Total Bilirubin AST ALT Alkaline Phosphatase B-Natriuretic Peptide Total Protein Albumin Lipase COVID-19 (MITZI) COVID-19 Clin Com ECG Interpretation: EKG with sinus rhythm at 73/Min; left ventricle hypertrophy with some QRS widening, leftward axis; nonspecific ST-T changes. Imaging Radiologist's impression: Impressions Chest X-Ray 01/29/22 21:55 IMPRESSION: Central vascular prominence. Mild interstitial prominence most suggestive of edema. Abdomen/Pelvis CT 01/29/22 22:28 IMPRESSION: Cholelithiasis. Mild gallbladder wall thickening with adjacent inflammation. The appearance is concerning for cholecystitis. This can be evaluated with ultrasound. Nonobstructing right renal calculi. Fleischner guidelines were followed. Abdomen Ultrasound 01/30/22 01:15 IMPRESSION: Abnormal gallbladder. Gallbladder sludge with stones. Wall thickening with adjacent inflammation. These findings are consistent with acute cholecystitis. Hepatic steatosis. Increased renal cortical echogenicity can be seen in the setting of medical renal disease. Assessment and Plan (1) Preop cardiovascular exam: Status: Acute (2) CAD (coronary artery disease): Status: Acute (3) Ischemic cardiomyopathy: Status: Acute (4) ESRD (end stage renal disease) on dialysis: Status: Acute (5) Ventricular tachycardia: Status: Acute Plan High sensitivity troponins are only minimally elevated at 17.3. Cut off is 17. Echocardiogram last year with LVEF 45-50%. Basal inferior/inferolateral akinesis. Cardiac catheterization 2011- diagonal-ostial 50% stenosis. Diffusely irregular LAD. Otherwise normal coronary arteries. Myocardial perfusion imaging study from 12/2019-infarction of the basal/mid inferior/inferolateral matrin in the RCA/circumflex territory. No ischemia. Gated LVEF 45%. Chest [id number] vascular prominence; mild interstitial prominence, edema. Based on remote ICD data, stable function. Overall, she does have a lot of cardiac issues but they seem compensated. May proceed with cholecystectomy surgery as planned. Will be at least intermediate cardiac risk. Discussed with patient about perioperative complications including myocardial infarction and she understands. Procedures Date of Service Date of Service: 01/30/22
--- NOTE | 2022-01-30 11:52 | MHC.CM.PN ---
Patient lives in an apartment with her Son, who also transports her to HD in [facility] M/W/. Home resume HD and continue Niece as Caregiver is the goal and CM has initiated and will follow for dc planning. Patient has received Covid vax and her PCP is Dr. Christiane Vernon.
--- NOTE | 2022-01-30 14:06 | P.EN_ITS ---
Event Note Date of Service: 02/01/22 Event Note: Currently undergoing hemodialysis Stable vital signs Abdomen soft Some tenderness on the right upper quadrant I had a long discussion with her about option of proceeding with cholecystectomy Discussed the technique of laparoscopic cholecystectomy and possible open cholecystectomy. I reviewed the risks including but not limited to bleeding, sections, injury to the bile duct, injury to liver and bowel She understands that she does have multiple medical problems perioperative risks are higher than average The commercial technician has stated that she is at intermitted risk for cardiac events She does state that if she improves antibiotics she would rather avoid surgery I however told her that if she does not improve, may be best to go ahead with cholecystectomy I will see her again evaluate in the morning BNP was markedly elevated
--- NOTE | 2022-01-30 14:06 | PM.EVENT ---
Event Note Date of Service: 01/30/22 Event Note: 71-year-old female with a past medical history of hypertension, hyperlipidemia, CAD, CHF status post AICD, paroxysmal AFib on Eliquis, history of ventricular tachycardia, ESRD on hemodialysis presented to the hospital with chief complaint of nausea/abdominal discomfort, and mild shortness of breath without associated fever chills cough or sputum production, and abdominal CT scan showed coli he esis with mild gallbladder wall thickening with adjacent inflammation concerning for cholecystitis , abdominal ultrasound showed gallbladder sludge with stones with wall thickening consistent with acute cholecystitis but since patient noted to have abnormal chest x-ray suggestive of congestion patient admitted to medical floor. On examination patient awake alert, mildly tachypneic assessment plan mild acute diastolic CHF exacerbation, patient treated with iv Bumex in ed, patient due for hemodialysis this morning likely volume overload, follow clinical course, echo from last year showed EF 45-50% mild hyperkalemia will undergo hemodialysis, follow labs end-stage renal disease on hemodialysis is spoke with Nephrology will undergo hemodialysis today acute cholecystitis case discussed with Dr. Romano patient will undergo surgery tomorrow, will place her on clear liquid diet, NPO after midnight, patient is intermediate cardiac risk will hold Eliquis, normal LFTs to history of atrial fibrillation continue amiodarone hold Eliquis history of hypertension continue Coreg, question patient takes amlodipine and hydralazine at home will verify history of hyperlipidemia hold statins
--- NOTE | 2022-01-30 17:28 | PHA.MEDREC ---
Addendum entered by Ming Suazo RPh 01/31/22 11:04: Per [facility] nephrology, patient is supposed to be on hydralazine and on amlodipine Original Note: Pharmacy Consult ? Medication Reconciliation Pharmacy has completed the medication reconciliation. Spoke with patient in [place] who was not sure of medications that she is taking. Patient stated she is not taking amlodipine and bumex anymore and the doctor never sent refills over for hydralazine. Will contact Dr. Davila/ govind ly office tomorrow for a list of medications patient is taking.
[2022-01-30] MEDS: carvediloL 6.25 MG TABLET PO (21:14)
[2022-01-31] MEDS: 0.9 % Sodium Chloride Flush 3 ML SYRINGE IVFLUSH ×3 (01:20→14:48)
--- NOTE | 2022-01-31 02:00 | CONS_ITS ---
DATE OF SERVICE: HISTORY OF PRESENT ILLNESS: I was asked to see patient to assist in evaluation of her dialysis needs in the setting of presenting to the hospital complaining of nausea and vomiting. Her workup in the emergency room was consistent with acute cholecystitis and she is being seen by surgery. As mentioned, she is an ESRD patient, normally gets her dialysis Sunday, Sunday, and Sunday at the [facility]. Apparently, she has been having abdominal discomfort along with nausea and vomiting for the past 2 days. She said she had her dialysis treatment on Sunday. She denies any shortness of breath, chest pain, fever, sweats, or chills. As mentioned, in the emergency room she had a CAT scan, which showed evidence suggestive of acute cholecystitis. She had an ultrasound that also confirmed this as well. She has been started on antibiotics and seen by Surgery. PAST MEDICAL HISTORY: Notable for ESRD, coronary artery disease, hypertension, and hyperlipidemia. She has got implantable defibrillator, ischemic cardiomyopathy, paroxysmal atrial fibrillation and there is mention made of V-tach in the past. MEDICATIONS: On admission are noted in the admitting notes. ALLERGIES: SHE HAS ALLERGIES TO NSAIDS. CURRENT MEDICATIONS: Noted the MAR. SOCIAL HISTORY: She is a nonsmoker, nondrinker. No illicit drug use. REVIEW OF SYSTEMS: As noted above. PHYSICAL EXAMINATION: VITAL SIGNS: Blood pressure 135/65, heart rate in the 70s. HEENT: Head is atraumatic and normocephalic. Mucous membranes are moist. NECK: Supple. LUNGS: Clear with decreased breath sounds at the bases. ABDOMEN: Tender especially in the right upper quadrant. EXTREMITIES: Shows no edema. She has left upper extremity AV fistula with bruit and thrill. LABORATORY DATA: Showed sodium 139, potassium 5.4, chloride 101, bicarb 21, and calcium 8.5. BNP level 2547. Hemoglobin 10.9, hematocrit 35.6, and white blood cell count 7.0. IMPRESSION: END-STAGE RENAL DISEASE PATIENT ADMITTED WITH ABDOMINAL PAIN AND WORKUP CONSISTENT WITH ACUTE CHOLECYSTITIS. 1. End-stage renal disease. We will dialyze her today. She is currently on dialysis on a 2K bath. 2. Acute cholecystitis. She is evaluated by Surgery to see about what surgical intervention is necessary. 3. History of coronary artery disease. SUGGESTIONS: At this time include dialysis, which she is currently under taking. Continue routine medications. Surgical evaluation regarding timing of intervention for her acute cholecystitis. We will follow the patient with the team. MD SHEFALI Pablo/ANDREA / [phone]
[2022-01-31 02:59] VITALS: BP 117/56; PULSE 83; RESP 20; TEMP 36.4; O2SAT 93
[2022-01-31] MEDS: metroNIDAZOLE/NS 500 MG/100 ML PIGGYBACK 100 MG IV ×3 (07:08→21:20)
[2022-01-31 07:35] LABS: Hematocrit 37.5 % (37.0-47.0); Hemoglobin 11.4 g/dl (12.0-16.0); Mean Corpuscular HGB Conc 30.4 g/dl (31.0-35.0); Mean Corpuscular Hemoglobin 27.5 pg (27.0-33.0); Mean Corpuscular Volume 90.4 fL (80.0-98.0); Mean Platelet Volume 9.6 fL (9.4-12.3); Platelet Count 91 X10*3/uL (160-400); Red Blood Count 4.15 X10*6/uL (4.20-5.50); White Blood Count 8.3 X10*3/uL (4.8-10.8)
[2022-01-31 07:50] VITALS: BP 124/58; PULSE 69; RESP 16; O2SAT 93
[2022-01-31 07:53] LABS: Alanine Aminotransferase 9 U/L (0-31); Albumin Level 3.2 g/dL (3.5-5.0); Alkaline Phosphatase 102 U/L (39-117); Aspartate Amino Transferase 16 U/L (5-31); Bilirubin Direct 0.3 mg/dL (0.0-0.5); Bilirubin Total 0.8 mg/dL (0.0-1.0); Total Protein 6.8 g/dL (6.5-8.0)
--- NOTE | 2022-01-31 08:20 | PM.PNGS ---
Subjective Subjective Date of Service: 01/31/22 Interval history: Feels much better this morning Says she has very little pain Seen to be eating regular food for breakfast Physical Exam Vital Signs: Vital Signs: Last Vital Signs Temp 97.6 F 01/31/22 02:59 Pulse 69 01/31/22 07:50 Resp 16 01/31/22 07:50 BP 124/58 L 01/31/22 07:50 Pulse Ox 93 01/31/22 07:50 O2 Del Method 01/31/22 07:50 O2 Flow Rate 0 01/30/22 18:15 BMI result Body Mass Index 23.1 Const: General: comfortable and no acute distress Resp: Effort & Inspection: normal respiratory effort Cardio: Rate: regular rate GI: Other: Soft, no guarding rebound, minimal tenderness on the right upper quadrant, no Solis's sign Objective Data Active Medications Acetaminophen (Acetaminophen 325 Mg Tablet) 650 mg PO Q6H PRN PRN Reason: Pain, Mild (Pain Scale 1-3) Amiodarone HCl (Amiodarone Hcl 200 Mg Tablet) 100 mg PO DAILY [facility] Carvedilol (Carvedilol 6.25 Mg Tablet) 6.25 mg PO BID [facility]; Protocol Last Admin: 01/30/22 21:14 Dose: 6.25 mg Documented By: MAXIME Metronidazole (Flagyl) 500 mg in 100 mls @ 100 mls/hr IV Q8H [facility] Last Admin: 01/31/22 07:08 Dose: 100 mls/hr Documented By: NATHANIEL Ceftriaxone Sodium 1 gm/ (Sodium Chloride) 50 mls @ 100 mls/hr IV Q24H [facility] Last Infusion: 01/30/22 22:16 Dose: 0 mls/hr Documented By: MAXIME Melatonin (Melatonin 3 Mg Tablet) 6 mg PO BEDTIME PRN PRN Reason: Insomnia Omeprazole (Omeprazole 20 Mg Capsule.Dr) 20 mg PO DAILY [facility] Pharmacy Consult (Consult Rx Perform Med Rec) 1 each MISCELLANE ONCE PRN PRN Reason: Consult order Senna (Sennosides 8.6 Mg Tablet) 17.2 mg PO BEDTIME PRN PRN Reason: Constipation Sodium Chloride (0.9 % Sodium Chloride Flush 3 Ml Syringe) 3 ml IVFLUSH QSHIFT [facility] Last Admin: 01/31/22 01:20 Dose: 3 ml Documented By: NATHANIEL Labs CBC & Chem 7: 01/31/22 07:12 01/30/22 06:42 Labs: Laboratory Results - last 24 hr 01/31/22 01/31/22 07:12 07:12 MCV 90.4 MCH 27.5 MCHC 30.4 L RDW 16.0 Plt Count 91 L MPV 9.6 Absolute Nucleated RBC 0.000 Nucleated RBC % (auto) 0.0 Total Bilirubin 0.8 Direct Bilirubin 0.3 AST 16 ALT 9 Alkaline Phosphatase 102 D Total Protein 6.8 Albumin 3.2 L Microbiology Microbiology Results: Microbiology 01/30/22 02:14 Blood Culture - Preliminary Blood - Venous No growth after 24 hours. 01/30/22 02:00 Blood Culture - Preliminary Blood - Venous No growth after 24 hours. Procedures Date of Service Date of Service: 01/31/22 Progress Note: A&P Assessment and plan (1) Cholecystitis: Status: Acute Assessment and Plan: Pain and tenderness much improved WBC still normal Bilirubin and LFTs normal Minimal tenderness on deep palpation Patient looks well Was eating breakfast Will hold off on cholecystectomy therefore Continue IV antibiotics Time Spent With Patient Time: Total time spent is greater than 50% in coordination of care (as documented) at patient's floor/unit and/or counseling patient: Quality Stroke Does the patient have a stroke diagnosis?: No VTE Prior VTE?: No VTE Risk Level:: Medical - moderate - high VTE Device Contraindication: Treatment Not Indicated VTE Drug Contraindication: N/A - Med Ordered
[2022-01-31 09:25] LABS: Anion Gap 22 (12-20); Blood Urea Nitrogen 36 mg/dL (9-16); Calcium 7.9 mg/dL (8.4-10.2); Carbon Dioxide 19 mmol/L (22-29); Chloride 95 mmol/L (96-108); Creatinine Clr Calc Pharmacy 7.1; Estimated Glomerular Filt Rate 7; Glucose Random 132 mg/dL (60-115); Potassium 4.5 mmol/L (3.3-5.1); Sodium 131 mmol/L (135-145)
[2022-01-31] MEDS: Omeprazole 20 MG CAPSULE.DR PO (10:09)
[2022-01-31] MEDS: carvediloL 6.25 MG TABLET PO ×2 (10:09→21:19)
[2022-01-31] MEDS: Amiodarone HCL 200 MG TABLET 100 MG PO (10:09)
--- NOTE | 2022-01-31 11:04 | PM.PNNEP ---
Subjective Subjective Date of Service: 01/31/22 Principal diagnosis: esrd Interval history: Seen and examiend, events noted Physical Exam Vital Signs: Vital Signs: Last Vital Signs Temp 97.6 F 01/31/22 02:59 Pulse 69 01/31/22 07:50 Resp 16 01/31/22 07:50 BP 124/58 L 01/31/22 07:50 Pulse Ox 93 01/31/22 07:50 O2 Del Method 01/31/22 07:50 O2 Flow Rate 0 01/30/22 18:15 BMI result Body Mass Index 23.1 Const: General: comfortable and no acute distress Orientation/consciousness: patient oriented x3 HEENT: Other: Unremarkable Head: Yes normal to inspection Neck: Neck: Yes normal visual inspection Chest: Chest palpation & inspection: normal inspection of the chest Resp: Effort & Inspection: normal respiratory effort Auscultation: clear to auscultation bilaterally Cardio: Palpation: normal PMI Rate: regular rate Heart sounds: S1 normal heart sound present, S2 normal heart sound present, no gallops, Murmur heart sound present systolic early, II/, at the apex and at the right sternal border and no rubs GI: Other: Soft, no guarding rebound, minimal tenderness on the right upper quadrant, no Solis's sign Palpation (GI): Soft to palpation Back/Spine/Pelvis: Other: unremarkable Skin: General skin exam: no rashes or lesions noted Neuro: General: patient oriented x3 Extrem: Other: no lower extremity edema General: Yes normal to inspection Psych: Mental Status: mental status grossly normal Objective Data Labs CBC & Chem 7: 01/31/22 07:12 01/31/22 08:17 Labs: Laboratory Results - last 24 hr 01/31/22 01/31/22 01/31/22 07:12 07:12 08:17 WBC 8.3 RBC 4.15 L Hgb 11.4 L Hct 37.5 MCV 90.4 MCH 27.5 MCHC 30.4 L RDW 16.0 Plt Count 91 L MPV 9.6 Absolute Nucleated RBC 0.000 Nucleated RBC % (auto) 0.0 Sodium 131 L Potassium 4.5 Chloride 95 L Carbon Dioxide 19 L Anion Gap 22 H BUN 36 H Creatinine 6.07 H* Estim Creat Clear Calc 7.1 Estimated GFR 7 Random Glucose 132 H Calcium 7.9 L D Total Bilirubin 0.8 Direct Bilirubin 0.3 AST 16 ALT 9 Alkaline Phosphatase 102 D Total Protein 6.8 Albumin 3.2 L Microbiology Microbiology Results: Microbiology 01/30/22 02:14 Blood - Venous Blood Culture - Preliminary No growth after 24 hours. 01/30/22 02:00 Blood - Venous Blood Culture - Preliminary No growth after 24 hours. Procedures Date of Service Date of Service: 01/31/22 Assessment & Plan Assessment and plan (1) Cholecystitis: Status: Acute Assessment and Plan: 1. ESRD: mwf 2. CHolecystsi: as per surg/med REC: cont HD 3x/wk as ordered Time Spent With Patient Time: Total time spent is greater than 50% in coordination of care (as documented) at patient's floor/unit and/or counseling patient: Progress Note: Quality Stroke Does the patient have a stroke diagnosis?: No
[2022-01-31 11:57] VITALS: BP 116/55; PULSE 64; RESP 20; O2SAT 95
--- NOTE | 2022-01-31 12:58 | P.PNIM_ITS ---
Subjective Subjective Date of Service: 01/31/22 Interval History: History obtained via deputy chief counsel, patient feeling better complaining of persistent mild right upper quadrant pain better since yesterday, denies fever chills, no nausea, no vomiting tolerated clear liquid diet, no acute events overnight. 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 Neck no JVD. CVS regular rate rhythm, Respiratory lungs clear to auscultation, no respiratory distress, no wheeze, no rhonchi. Gastrointestinal abdomen soft, mild right upper quadrant tenderness, bowel sounds audible, no guarding , no rigidity. Extremities no edema. Neuro nonfocal , speech clear. Skin no rash psych appropriate affect Objective Data Active Medications Acetaminophen (Acetaminophen 325 Mg Tablet) 650 mg PO Q6H PRN PRN Reason: Pain, Mild (Pain Scale 1-3) Amiodarone HCl (Amiodarone Hcl 200 Mg Tablet) 100 mg PO DAILY [facility] Last Admin: 01/31/22 10:09 Dose: 100 mg Documented By: MEGHNA Comments: Carvedilol (Carvedilol 6.25 Mg Tablet) 6.25 mg PO BID [facility]; Protocol Last Admin: 01/31/22 10:09 Dose: 6.25 mg Documented By: MEGHNA Metronidazole (Flagyl) 500 mg in 100 mls @ 100 mls/hr IV Q8H [facility] Last Infusion: 01/31/22 10:10 Dose: 0 mls/hr Documented By: MGEHNA Ceftriaxone Sodium 1 gm/ (Sodium Chloride) 50 mls @ 100 mls/hr IV Q24H [facility] Last Infusion: 01/30/22 22:16 Dose: 0 mls/hr Documented By: MAXIME Melatonin (Melatonin 3 Mg Tablet) 6 mg PO BEDTIME PRN PRN Reason: Insomnia Omeprazole (Omeprazole 20 Mg Capsule.) 20 mg PO DAILY [facility] Last Admin: 01/31/22 10:09 Dose: 20 mg Documented By: MEGHNA Pharmacy Consult (Consult Rx Perform Med Rec) 1 each MISCELLANE ONCE PRN PRN Reason: Consult order Senna (Sennosides 8.6 Mg Tablet) 17.2 mg PO BEDTIME PRN PRN Reason: Constipation Sodium Chloride (0.9 % Sodium Chloride Flush 3 Ml Syringe) 3 ml IVFLUSH QSHIFT [facility] Last Admin: 01/31/22 10:09 Dose: 3 ml Documented By: MEGHNA Labs CBC & Chem 7: 01/31/22 07:12 01/31/22 08:17 Labs: Laboratory Results - last 24 hr 01/31/22 01/31/22 01/31/22 07:12 07:12 08:17 MCV 90.4 MCH 27.5 MCHC 30.4 L RDW 16.0 Plt Count 91 L MPV 9.6 Absolute Nucleated RBC 0.000 Nucleated RBC % (auto) 0.0 Anion Gap 22 H Estim Creat Clear Calc 7.1 Estimated GFR 7 Random Glucose 132 H Calcium 7.9 L D Total Bilirubin 0.8 Direct Bilirubin 0.3 AST 16 ALT 9 Alkaline Phosphatase 102 D Total Protein 6.8 Albumin 3.2 L Microbiology Microbiology Results: Microbiology 01/30/22 02:14 Blood Culture - Preliminary Blood - Venous No growth after 24 hours. 01/30/22 02:00 Blood Culture - Preliminary Blood - Venous No growth after 24 hours. Assessment and Plan (1) Cholecystitis: Status: Acute (2) ESRD (end stage renal disease) on dialysis: Status: Acute (3) CHF exacerbation: Status: Acute Plan 71-year-old female with a past medical history of hypertension, hyperlipidemia, CAD, CHF status post AICD, paroxysmal AFib on Eliquis, history of ventricular tachycardia, ESRD on hemodialysis presented to the hospital with chief complaint of nausea/abdominal discomfort, and mild shortness of breath without associated fever chills cough or sputum production, and abdominal CT scan showed colilithiasis with mild gallbladder wall thickening with adjacent inflammation concerning for cholecystitis , abdominal ultrasound showed gallbladder sludge with stones with wall thickening consistent with acute cholecystitis but since patient noted to have abnormal chest x-ray suggestive of congestion patient admitted to medical floor. mild acute diastolic CHF exacerbation, resolved underwent hemodialysis and received 1 dose of Bumex,echo from last year showed EF 45-50%, no further workup warranted ?mild hyperkalemia resolved mild hyponatremia will be addressed with hemodialysis ?end-stage renal disease on hemodialysis continue hemodialysis Sunday and Sunday being followed by Nephrologyi ?acute cholecystitis no fevers, normal WBC,cont. clear liquid diet, being followed by General surgery the plan to monitor for 24 hours,?will hold Eliquis, normal LFTs ?history of paroxysmal atrial fibrillation continue amiodarone hold Eliquis ?history of hypertension? continue Coreg, hold amlodipine and hydralazine bp stable off these meds ?history of hyperlipidemia hold statins patient will need continued inpatient hospitalization due to acute cholecystitis currently on clear liquid diet possible cholecystectomy in next 24 hours Quality Stroke Does the patient have a stroke diagnosis?: No VTE Prior VTE?: No VTE Risk Level:: Medical - moderate - high VTE Device Contraindication: Treatment Not Indicated VTE Drug Contraindication: N/A - Med Ordered
[2022-01-31] MEDS: Sevelamer Carbonate Tablet 800 MG TABLET PO (16:23)
[2022-01-31 16:47] VITALS: BP 126/64; PULSE 68; RESP 14; TEMP 36.2; O2SAT 93
--- NOTE | 2022-01-31 19:36 | PC.NURSE ---
introduced self to patient. 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 vital sings updated. call renteria within reach. will continue to monitor.
[2022-01-31 19:41] VITALS: BP 130/61; PULSE 69; RESP 18; TEMP 36.6; O2SAT 94
[2022-01-31] MEDS: cefTRIAXone sodium 1 GM in 0.9 % Sodium Chloride 50 ML IV (21:19)
[2022-01-31 23:54] VITALS: BP 113/70; PULSE 67; RESP 14; TEMP 36.8; O2SAT 91
[2022-02-01] VITALS (8 sets, daily range): BP systolic 114–145; BP diastolic 58–94; PULSE 62–78; RESP 12–18; TEMP 36.2–37.4; O2SAT 91–96
[2022-02-01] MEDS: 0.9 % Sodium Chloride Flush 3 ML SYRINGE IVFLUSH ×3 (00:36→21:59)
[2022-02-01] MEDS: metroNIDAZOLE/NS 500 MG/100 ML PIGGYBACK 100 MG IV ×3 (06:23→21:58)
--- NOTE | 2022-02-01 08:32 | P.PNGS_ITS ---
Subjective Subjective Date of Service: 02/03/22 Interval history: Continues to feel better Minimal pain on the right side Hungry and wants to eat Tolerating clear liquids well Physical Exam Vital Signs: Vital Signs: Last Vital Signs Temp 98.2 F 02/01/22 08:30 Pulse 65 02/01/22 08:30 Resp 12 02/01/22 08:30 BP 123/64 02/01/22 08:30 Pulse Ox 94 02/01/22 08:30 O2 Del Method 02/01/22 08:30 O2 Flow Rate 0 01/30/22 18:15 BMI result Body Mass Index 23.1 Const: Other: Looks well General: comfortable and no acute distress Resp: Effort & Inspection: normal respiratory effort Cardio: Rate: regular rate GI: Other: Mild tenderness on right upper quadrant Palpation (GI): Soft to palpation, not firm and no guarding Objective Data Active Medications Acetaminophen (Acetaminophen 325 Mg Tablet) 650 mg PO Q6H PRN PRN Reason: Pain, Mild (Pain Scale 1-3) Amiodarone HCl (Amiodarone Hcl 200 Mg Tablet) 100 mg PO DAILY [facility] Last Admin: 01/31/22 10:09 Dose: 100 mg Documented By: MEGHNA Comments: Carvedilol (Carvedilol 6.25 Mg Tablet) 6.25 mg PO BID [facility]; Protocol Last Admin: 01/31/22 21:19 Dose: 6.25 mg Documented By: DEEPALI Metronidazole (Flagyl) 500 mg in 100 mls @ 100 mls/hr IV Q8H [facility] [place] Last Infusion: 02/01/22 07:43 Dose: 0 mls/hr Documented By: DENNY Ceftriaxone Sodium 1 gm/ (Sodium Chloride) 50 mls @ 100 mls/hr IV Q24H [facility] Last Infusion: 01/31/22 23:37 Dose: 0 mls/hr Documented By: DEEPALI Melatonin (Melatonin 3 Mg Tablet) 6 mg PO BEDTIME PRN PRN Reason: Insomnia Omeprazole (Omeprazole 20 Mg Capsule.) 20 mg PO DAILY [facility] [place] Last Admin: 01/31/22 10:09 Dose: 20 mg Documented By: MEGHNA Pharmacy Consult (Consult Rx Perform Med Rec) 1 each MISCELLANE ONCE PRN PRN Reason: Consult order Senna (Sennosides 8.6 Mg Tablet) 17.2 mg PO BEDTIME PRN PRN Reason: Constipation Sevelamer Carbonate (Sevelamer Carbonate Tablet 800 Mg Tablet) 800 mg PO TIDWM [facility] [place] Last Admin: 01/31/22 16:23 Dose: 800 mg Documented By: MEGHNA Sodium Chloride (0.9 % Sodium Chloride Flush 3 Ml Syringe) 3 ml IVFLUSH QSHIFT [facility] [place] Last Admin: 02/01/22 00:36 Dose: 3 ml Documented By: ADRIANA Vitamin D (Cholecalciferol (Vitamin D3) 25 Mcg Tablet) 25 mcg PO DAILY [facility] Labs CBC & Chem 7: 01/31/22 07:12 02/02/22 06:05 Labs: Laboratory Results - last 24 hr 01/31/22 08:17 Anion Gap 22 H Estim Creat Clear Calc 7.1 Estimated GFR 7 Random Glucose 132 H Calcium 7.9 L D Microbiology Microbiology Results: Microbiology 01/30/22 02:14 Blood Culture - Preliminary Blood - Venous No growth after 48 hours. 01/30/22 02:00 Blood Culture - Preliminary Blood - Venous No growth after 48 hours. Procedures Date of Service Date of Service: 02/03/22 Progress Note: A&P Assessment and plan (1) Cholecystitis: Status: Acute Assessment and Plan: With multiple medical problems Improving well clinically Minimal pain and tenderness She wants to try to eat Okay to try full liquids later on today Seems to be responding to antibiotics /non operative treatment Dialysis today Will continue to follow Time Spent With Patient Time: Total time spent is greater than 50% in coordination of care (as documented) at patient's floor/unit and/or counseling patient: Quality Stroke Does the patient have a stroke diagnosis?: No VTE Prior VTE?: No VTE Risk Level:: Medical - moderate - high VTE Device Contraindication: Treatment Not Indicated VTE Drug Contraindication: N/A - Med Ordered
[2022-02-01] MEDS: Sevelamer Carbonate Tablet 800 MG TABLET PO ×3 (08:35→16:21)
--- NOTE | 2022-02-01 09:10 | PC.NURSE ---
Pt transported to dialysis via bed
--- NOTE | 2022-02-01 09:29 | PM.PNCARD ---
Subjective Subjective Date of Service: 02/01/22 Principal diagnosis: esrd Interval history: She states that she feels okay. No cardiac symptoms. Review of Systems Review of Systems Yes all other systems are reviewed and are negative Constitutional: Reports as per HPI Eyes: Reports as per HPI Reports as per HPI Cardiovascular: Reports as per HPI, Denies acrocyanosis, Denies cool extremities, Denies chest pain, Denies leg edema, Denies lightheadedness, Denies palpitations and Denies dyspnea Respiratory: Reports as per HPI, Reports no additional respiratory complaints and Denies dyspnea Gastrointestinal: Reports as per HPI and Reports no additional gastrointestinal complaints Genitourinary: Reports as per HPI Musculoskeletal: Reports no additional musculoskeletal complaints and Reports as per HPI Skin/Breast: Reports system reviewed and no additional complaints, except as docu Reports system reviewed and no additional complaints, except as documented and Reports as per HPI Psychiatric: Reports no additional psychiatric complaints and Reports as per HPI Endocrine: Reports no additional endocrine complaints, Reports as per HPI and Denies palpitations Hematologic/Lymphatic: Reports no additional hematologic/lymphatic complaints and Reports as per HPI Allergic/Immunologic: Reports no additional allergic/immunologic complaints and Reports as per HPI Physical Exam Vital Signs: Last Vital Signs Temp 98.2 F 02/01/22 08:30 Pulse 65 02/01/22 08:30 Resp 12 02/01/22 08:30 BP 123/64 02/01/22 08:30 Pulse Ox 94 02/01/22 08:30 O2 Del Method 02/01/22 08:30 O2 Flow Rate 0 01/30/22 18:15 BMI result Body Mass Index 23.1 Const General: comfortable and no acute distress Orientation/consciousness: patient oriented x3 HEENT Other: Unremarkable Head: Yes normal to inspection Neck Neck: Yes normal visual inspection Chest Chest palpation & inspection: normal inspection of the chest Resp Auscultation: clear to auscultation bilaterally Cardio Palpation: normal PMI Heart sounds: S1 normal heart sound present, S2 normal heart sound present, no gallops, Murmur heart sound present systolic early, II/, at the apex and at the right sternal border and no rubs GI Palpation (GI): Soft to palpation Back/Spine/Pelvis Other: unremarkable Skin General skin exam: no rashes or lesions noted Neuro General: patient oriented x3 Extrem General: Yes normal to inspection Psych Mental Status: mental status grossly normal Objective Labs and Meds Result diagrams: 01/31/22 07:12 01/31/22 08:17 Progress Note: A&P Assessment and plan (1) Preop cardiovascular exam: Status: Acute (2) CAD (coronary artery disease): Status: Acute (3) Ischemic cardiomyopathy: Status: Acute (4) ESRD (end stage renal disease) on dialysis: Status: Acute (5) Ventricular tachycardia: Status: Acute Plan Initially seen for preoperative evaluation for cholecystectomy, but it seems that she is getting medically managed at this time. Cardiac data reviewed. High sensitivity troponins are only minimally elevated at 17.3. Cut off is 17. Echocardiogram last year with LVEF 45-50%. Basal inferior/inferolateral akinesis. Cardiac catheterization 2011- diagonal-ostial 50% stenosis. Diffusely irregular LAD. Otherwise normal coronary arteries. Myocardial perfusion imaging study from 12/2019-infarction of the basal/mid inferior/inferolateral martin in the RCA/circumflex territory. No ischemia. Gated LVEF 45%. Overall, cardiac issues seems fairly stable. As long as she can take p.o. medications, continue the home regimen without any changes. If the plan changes to moving towards surgery, then surgical risk previously coated will remain the same-at least intermediate. Unmodifiable. Discussed with . Time Spent With Patient Time: Total time spent is greater than 50% in coordination of care (as documented) at patient's floor/unit and/or counseling patient: 35min. Progress Note: Quality Stroke Does the patient have a stroke diagnosis?: No Procedures Date of Service Date of Service: 02/01/22
--- NOTE | 2022-02-01 09:30 | PC.NURSE ---
Report received from Renee FARRELL. Pt up to the floor at 0900 and into dialysis. A+Ox4, no c/o pain. 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 Pt completed dialysis @ 1215. VSS. Assisted to bathroom, ambulates with 1A and requested a walker. Oriented to room, call renteria within reach, safety precautions taken.
[2022-02-01] MEDS: Omeprazole 20 MG CAPSULE.DR PO (09:32)
[2022-02-01] MEDS: Amiodarone HCL 200 MG TABLET 100 MG PO (09:32)
[2022-02-01] MEDS: Cholecalciferol (Vitamin D3) 25 MCG TABLET PO (09:32)
--- NOTE | 2022-02-01 10:30 | PM.PNNEP ---
Subjective Subjective Date of Service: 02/01/22 Principal diagnosis: esrd Interval history: Seen and examined, events noted; currently on HD Physical Exam Vital Signs: Vital Signs: Last Vital Signs Temp 97.3 F 02/01/22 09:36 Pulse 62 02/01/22 09:36 Resp 16 02/01/22 09:36 BP 141/75 H 02/01/22 09:36 Pulse Ox 96 02/01/22 09:36 O2 Del Method 02/01/22 09:36 O2 Flow Rate 0 01/30/22 18:15 BMI result Body Mass Index 23.1 Const: General: comfortable and no acute distress Orientation/consciousness: patient oriented x3 HEENT: Other: Unremarkable Head: Yes normal to inspection Neck: Neck: Yes normal visual inspection Chest: Chest palpation & inspection: normal inspection of the chest Resp: Effort & Inspection: normal respiratory effort Auscultation: clear to auscultation bilaterally Cardio: Palpation: normal PMI Rate: regular rate Heart sounds: S1 normal heart sound present, S2 normal heart sound present, no gallops, Murmur heart sound present systolic early, II/, at the apex and at the right sternal border and no rubs GI: Other: Soft, no guarding rebound, minimal tenderness on the right upper quadrant, no Solis's sign Palpation (GI): Soft to palpation Back/Spine/Pelvis: Other: unremarkable Skin: General skin exam: no rashes or lesions noted Neuro: General: patient oriented x3 Extrem: Other: no lower extremity edema General: Yes normal to inspection Psych: Mental Status: mental status grossly normal Objective Data Labs CBC & Chem 7: 01/31/22 07:12 01/31/22 08:17 Microbiology Microbiology Results: Microbiology 01/30/22 02:14 Blood - Venous Blood Culture - Preliminary No growth after 48 hours. 01/30/22 02:00 Blood - Venous Blood Culture - Preliminary No growth after 48 hours. Procedures Date of Service Date of Service: 02/01/22 Assessment & Plan Assessment and plan (1) Cholecystitis: Status: Acute Assessment and Plan: 1. ESRD: mwf 2. CHolecystsi: as per surg/med --medically Tx for now REC: cont HD 3x/wk as ordered; d/c planning vs CCX this hosp ? Time Spent With Patient Time: Total time spent is greater than 50% in coordination of care (as documented) at patient's floor/unit and/or counseling patient: Progress Note: Quality Stroke Does the patient have a stroke diagnosis?: No
--- NOTE | 2022-02-01 14:03 | P.PNIM_ITS ---
Subjective Subjective Date of Service: 02/01/22 Interval History: receiving hemodialysis, tolerating clear liquid diet denies nausea vomiting complaining of persistent right upper quadrant pain but mild, denies associated diarrhea, no fevers no chills no other acute events overnight. 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 Neck no JVD. CVS? regular rate rhythm, Respi ratory lungs clear to auscultation, no respiratory dis tress, no wheeze, no rhonchi. Gastro intestinal abdomen soft, mild right upper quadrant ten derness with palpa tion, bowel sounds audible, no guard ing . Extremities no edema. Neuro no nfocal , speech cl ear. Skin no rash psych appropriate affect Objective Data Active Medications Acetaminophen (Acetaminophen 325 Mg Tablet) 650 mg PO Q6H PRN PRN Reason: Pain, Mild (Pain Scale 1-3) Amiodarone HCl (Amiodarone Hcl 200 Mg Tablet) 100 mg PO DAILY [facility] Last Admin: 02/01/22 09:32 Dose: 100 mg Documented By: VON Carvedilol (Carvedilol 6.25 Mg Tablet) 6.25 mg PO BID [facility]; Protocol Last Admin: 02/01/22 09:46 Dose: Not Given Documented By: VON Non-Admin Reason: Off unit: Dialysis Metronidazole (Flagyl) 500 mg in 100 mls @ 100 mls/hr IV Q8H [facility] Last Infusion: 02/01/22 07:43 Dose: 0 mls/hr Documented By: DENNY Ceftriaxone Sodium 1 gm/ (Sodium Chloride) 50 mls @ 100 mls/hr IV Q24H [facility] Last Infusion: 01/31/22 23:37 Dose: 0 mls/hr Documented By: DEEPALI Melatonin (Melatonin 3 Mg Tablet) 6 mg PO BEDTIME PRN PRN Reason: Insomnia Omeprazole (Omeprazole 20 Mg Capsule.) 20 mg PO DAILY [facility] Last Admin: 02/01/22 09:32 Dose: 20 mg Documented By: VON Pharmacy Consult (Consult Rx Perform Med Rec) 1 each MISCELLANE ONCE PRN PRN Reason: Consult order Senna (Sennosides 8.6 Mg Tablet) 17.2 mg PO BEDTIME PRN PRN Reason: Constipation Sevelamer Carbonate (Sevelamer Carbonate Tablet 800 Mg Tablet) 800 mg PO TIDWM [facility] Last Admin: 02/01/22 11:58 Dose: 800 mg Documented By: VON Sodium Chloride (0.9 % Sodium Chloride Flush 3 Ml Syringe) 3 ml IVFLUSH QSHIFT [facility] Last Admin: 02/01/22 08:33 Dose: 3 ml Documented By: DENNY Vitamin D (Cholecalciferol (Vitamin D3) 25 Mcg Tablet) 25 mcg PO DAILY [facility] Last Admin: 02/01/22 09:32 Dose: 25 mcg Documented By: VON Labs CBC & Chem 7: 01/31/22 07:12 01/31/22 08:17 Microbiology Microbiology Results: Microbiology 01/30/22 02:14 Blood Culture - Preliminary Blood - Venous No growth after 48 hours. 01/30/22 02:00 Blood Culture - Preliminary Blood - Venous No growth after 48 hours. Assessment and Plan (1) Cholecystitis: Status: Acute (2) ESRD (end stage renal disease) on dialysis: Status: Acute (3) CHF exacerbation: Status: Acute Plan 71-year-old female with a past medical history of hypertension, hyperlipidemia, CAD, CHF status post AICD, paroxysmal AFib on Eliquis, history of ventricular tachycardia, ESRD on hemodialysis presented to the hospital with chief complaint of nausea/abdominal discomfort, and mild shortness of breath without associated fever chills cough or sputum production, and abdominal CT scan showed colili thiasis with mild gallbladder wall thickening with adjacent inflammation concerning for cholecystitis , abdominal ultrasound showed gallbladder sludge with stones with wall thickening consistent with acute cholecystitis but since patient noted to have abnormal chest x-ray suggestive of congestion patient admitted to medical floor. mild acute diastolic CHF exacerbation, resolved underwent hemodialysis and received 1 dose of Bumex,echo from last year showed EF 45-50%, no further workup warranted ?mild hyperkalemia resolved mild hyponatremia to be addressed with hemodialysis ?end-stage renal disease on hemodialysis continue hemodialysis Sunday and Sunday being followed by Nephrology ?acute cholecystitis no fevers, normal WBC,cont. clear liquid diet, being followed by General surgery the plan to monitor for 24 hours,?will hold Eliquis, follow LFTs , NPO after midnight ?history of paroxysmal atrial fibrillation continue amiodarone and hold Eliquis ?history of hypertension? continue Coreg, hold amlodipine and hydralazine bp stable off these meds ?history of hyperlipidemia hold statins DVT prophylaxis with compression boots patient will need continued inpatient hospitalization due to acute cholecystitis currently on clear liquid diet possible cholecystectomy in next 24 hours Quality Stroke Does the patient have a stroke diagnosis?: No VTE Prior VTE?: No VTE Risk Level:: Medical - moderate - high VTE Device Contraindication: Treatment Not Indicated VTE Drug Contraindication: N/A - Med Ordered
--- NOTE | 2022-02-01 15:41 | MHC.CM.PN ---
per rounds pt not ready for dc dc plan remains for home
[2022-02-01] MEDS: carvediloL 6.25 MG TABLET PO (21:49)
[2022-02-01] MEDS: cefTRIAXone sodium 1 GM in 0.9 % Sodium Chloride 50 ML IV (21:57)
[2022-02-01] MEDS: Melatonin 3 MG TABLET 6 MG PO (22:39)
[2022-02-02 04:00] VITALS: BP 133/68; PULSE 64; RESP 18; TEMP 36.7; O2SAT 98
[2022-02-02] MEDS: metroNIDAZOLE/NS 500 MG/100 ML PIGGYBACK 100 MG IV ×3 (05:31→22:00)
[2022-02-02 07:04] LABS: Alanine Aminotransferase 8 U/L (0-31); Alkaline Phosphatase 86 U/L (39-117); Anion Gap 22 (12-20); Aspartate Amino Transferase 13 U/L (5-31); Bilirubin Direct 0.2 mg/dL (0.0-0.5); Bilirubin Total 0.5 mg/dL (0.0-1.0); Blood Urea Nitrogen 32 mg/dL (9-16); Calcium 8.2 mg/dL (8.4-10.2); Carbon Dioxide 20 mmol/L (22-29); Chloride 94 mmol/L (96-108); Creatinine Clr Calc Pharmacy 7.8; Estimated Glomerular Filt Rate 8; Glucose Random 58 mg/dL (60-115); Sodium 132 mmol/L (135-145); Total Protein 6.5 g/dL (6.5-8.0)
[2022-02-02 07:14] VITALS: BP 125/57; PULSE 67; RESP 20; TEMP 36.7; O2SAT 93
[2022-02-02] MEDS: Dextrose 50 % 25 GM/50 ML SYRINGE IVPUSH (07:15)
[2022-02-02 07:43] LABS: Glucose, Whole Blood 59 mg/dL (60-115)
[2022-02-02] MEDS: Sevelamer Carbonate Tablet 800 MG TABLET PO ×3 (07:48→17:30)
[2022-02-02] MEDS: carvediloL 6.25 MG TABLET PO (07:48)
[2022-02-02] MEDS: Amiodarone HCL 200 MG TABLET 100 MG PO (07:48)
[2022-02-02] MEDS: Omeprazole 20 MG CAPSULE.DR PO (07:48)
[2022-02-02] MEDS: Cholecalciferol (Vitamin D3) 25 MCG TABLET PO (07:48)
[2022-02-02] MEDS: Dextrose 5 % and Lactated Ring 1,000 ML 80 ML IVCONT (07:50)
--- NOTE | 2022-02-02 08:48 | PM.PNGS ---
Subjective Subjective Date of Service: 02/02/22 Interval history: feels well minimal pain on the right side says she is much better tolerating diet Physical Exam Vital Signs: Vital Signs: Last Vital Signs Temp 98.1 F 02/02/22 07:14 Pulse 67 02/02/22 07:14 Resp 20 02/02/22 07:14 BP 125/57 L 02/02/22 07:14 Pulse Ox 93 02/02/22 07:14 O2 Del Method 02/02/22 07:14 O2 Flow Rate 0 01/30/22 18:15 BMI result Body Mass Index 23.1 Const: General: comfortable and no acute distress Resp: Effort & Inspection: normal respiratory effort Cardio: Rate: regular rate GI: Other: very minimal tenderness if at all on the right upper quadrant Objective Data Active Medications Acetaminophen (Acetaminophen 325 Mg Tablet) 650 mg PO Q6H PRN PRN Reason: Pain, Mild (Pain Scale 1-3) Amiodarone HCl (Amiodarone Hcl 200 Mg Tablet) 100 mg PO DAILY [facility] Last Admin: 02/02/22 07:48 Dose: 100 mg Documented By: KENZIE Carvedilol (Carvedilol 6.25 Mg Tablet) 6.25 mg PO BID [facility]; Protocol Last Admin: 02/02/22 07:48 Dose: 6.25 mg Documented By: KENZIE Metronidazole (Flagyl) 500 mg in 100 mls @ 100 mls/hr IV Q8H [facility] Last Infusion: 02/02/22 06:48 Dose: 0 mls/hr Documented By: PUSHPA Ceftriaxone Sodium 1 gm/ (Sodium Chloride) 50 mls @ 100 mls/hr IV Q24H [facility] Last Infusion: 02/01/22 22:35 Dose: 0 mls/hr Documented By: FLY Dextrose/Lactated Ringer's (D5lr) 1,000 mls @ 80 mls/hr IVCONT .[id number] [facility] Stop: 02/02/22 19:59 Last Admin: 02/02/22 07:50 Dose: 80 mls/hr Documented By: KENZIE Melatonin (Melatonin 3 Mg Tablet) 6 mg PO BEDTIME PRN PRN Reason: Insomnia Last Admin: 02/01/22 22:39 Dose: 6 mg Documented By: PUSHPA Omeprazole (Omeprazole 20 Mg Capsule.) 20 mg PO DAILY [facility] Last Admin: 02/02/22 07:48 Dose: 20 mg Documented By: KENZIE Pharmacy Consult (Consult Rx Perform Med Rec) 1 each MISCELLANE ONCE PRN PRN Reason: Consult order Senna (Sennosides 8.6 Mg Tablet) 17.2 mg PO BEDTIME PRN PRN Reason: Constipation Sevelamer Carbonate (Sevelamer Carbonate Tablet 800 Mg Tablet) 800 mg PO TIDWM [facility] Last Admin: 02/02/22 07:48 Dose: 800 mg Documented By: KENZIE Sodium Chloride (0.9 % Sodium Chloride Flush 3 Ml Syringe) 3 ml IVFLUSH QSHIFT [facility] Last Admin: 02/02/22 07:56 Dose: Not Given Documented By: KENZIE Non-Admin Reason: IV Running Vitamin D (Cholecalciferol (Vitamin D3) 25 Mcg Tablet) 25 mcg PO DAILY [facility] Last Admin: 02/02/22 07:48 Dose: 25 mcg Documented By: KENZIE Labs CBC & Chem 7: 01/31/22 07:12 02/02/22 06:05 Labs: Laboratory Results - last 24 hr 02/02/22 02/02/22 06:05 07:09 Anion Gap 22 H Estim Creat Clear Calc 7.8 Estimated GFR 8 POC Glucose 59 L* Random Glucose 58 L* Calcium 8.2 L Total Bilirubin 0.5 Direct Bilirubin 0.2 AST 13 ALT 8 Alkaline Phosphatase 86 Total Protein 6.5 Albumin 3.0 L Procedures Date of Service Date of Service: 02/02/22 Progress Note: A&P Assessment and plan (1) Cholecystitis: Status: Acute Assessment and Plan: with multiple medical problems seems to have responded well to antibiotic treatment no leukocytosis pain almost resolved tolerating diet will hold off on cholecystectomy for now as discussed with patient Time Spent With Patient Time: Total time spent is greater than 50% in coordination of care (as documented) at patient's floor/unit and/or counseling patient: Quality Stroke Does the patient have a stroke diagnosis?: No VTE Prior VTE?: No VTE Risk Level:: Medical - moderate - high VTE Device Contraindication: Treatment Not Indicated VTE Drug Contraindication: N/A - Med Ordered
[2022-02-02 11:41] VITALS: BP 120/63; PULSE 63; RESP 20; TEMP 36.6; O2SAT 98
--- NOTE | 2022-02-02 11:44 | PM.PNNEP ---
Subjective Subjective Date of Service: 02/02/22 Principal diagnosis: esrd Interval history: Seen and examiend, events noted Physical Exam Vital Signs: Vital Signs: Last Vital Signs Temp 98.1 F 02/02/22 07:14 Pulse 67 02/02/22 07:14 Resp 20 02/02/22 07:14 BP 125/57 L 02/02/22 07:14 Pulse Ox 93 02/02/22 07:14 O2 Del Method 02/02/22 07:14 O2 Flow Rate 0 01/30/22 18:15 BMI result Body Mass Index 23.1 Const: General: comfortable and no acute distress Orientation/consciousness: patient oriented x3 HEENT: Other: Unremarkable Head: Yes normal to inspection Neck: Neck: Yes normal visual inspection Chest: Chest palpation & inspection: normal inspection of the chest Resp: Effort & Inspection: normal respiratory effort Auscultation: clear to auscultation bilaterally Cardio: Palpation: normal PMI Rate: regular rate Heart sounds: S1 normal heart sound present, S2 normal heart sound present, no gallops, Murmur heart sound present systolic early, II/, at the apex and at the right sternal border and no rubs GI: Other: Soft, no guarding rebound, minimal tenderness on the right upper quadrant, no Solis's sign Palpation (GI): Soft to palpation Back/Spine/Pelvis: Other: unremarkable Skin: General skin exam: no rashes or lesions noted Neuro: General: patient oriented x3 Extrem: Other: no lower extremity edema General: Yes normal to inspection Psych: Mental Status: mental status grossly normal Objective Data Labs CBC & Chem 7: 01/31/22 07:12 02/02/22 06:05 Labs: Laboratory Results - last 24 hr 02/02/22 02/02/22 06:05 07:09 Sodium 132 L Potassium 4.0 Chloride 94 L Carbon Dioxide 20 L Anion Gap 22 H BUN 32 H Creatinine 5.51 H* Estim Creat Clear Calc 7.8 Estimated GFR 8 POC Glucose 59 L* Random Glucose 58 L* Calcium 8.2 L Total Bilirubin 0.5 Direct Bilirubin 0.2 AST 13 ALT 8 Alkaline Phosphatase 86 Total Protein 6.5 Albumin 3.0 L Microbiology Microbiology Results: Microbiology 01/30/22 02:14 Blood - Venous Blood Culture - Preliminary No growth after 48 hours. 01/30/22 02:00 Blood - Venous Blood Culture - Preliminary No growth after 48 hours. Procedures Date of Service Date of Service: 02/02/22 Assessment & Plan Assessment and plan (1) Cholecystitis: Status: Acute Assessment and Plan: 1. ESRD: mwf 2. CHolecystsi: as per surg/med --medically Tx for now REC: no new recs; cont HD 3x/wk as ordered; d/c planning vs CCX this hosp ? Time Spent With Patient Time: Total time spent is greater than 50% in coordination of care (as documented) at patient's floor/unit and/or counseling patient: Progress Note: Quality Stroke Does the patient have a stroke diagnosis?: No
[2022-02-02 15:51] VITALS: BP 112/61; PULSE 64; RESP 18; TEMP 37.1; O2SAT 94
--- NOTE | 2022-02-02 16:05 | HO.PM.IMPN ---
Subjective Subjective Date of Service: 02/02/22 Interval History: being followed for acute cholecystitis patient denies abdominal pain noted to have low blood sugars this morning 59 since patient NPO, no acute overnight events no nausea no vomiting no fevers no chills, no diarrhea. Patient denies lightheadedness dizziness, no chest pain, no palpitation, shortness breath. Review of Systems Review of Systems: Yes all other systems are reviewed and are negative Physical Exam Vital Signs: Vital Signs: Last Vital Signs Temp 98.7 F 02/02/22 15:51 Pulse 64 02/02/22 15:51 Resp 18 02/02/22 15:51 BP 112/61 02/02/22 15:51 Pulse Ox 94 02/02/22 15:51 O2 Del Method 02/02/22 15:51 O2 Flow Rate 0 01/30/22 18:15 BMI result Body Mass Index 23.1 Const: Other: General awake alert x3,in no acute distress.? Neck no JVD. CVS? regular rate rhythm, Respiratory lungs clear to auscultation, no respiratory distress, no wheeze, no rhonchi. Gastrointestinal abdomen soft, Nontender, bowel sounds audible, no guarding , no rigidity. Extremities no edema. Neuro nonfocal , speech clear. Skin no rash psych appropriate affect Objective Data Active Medications Acetaminophen (Acetaminophen 325 Mg Tablet) 650 mg PO Q6H PRN PRN Reason: Pain, Mild (Pain Scale 1-3) Amiodarone HCl (Amiodarone Hcl 200 Mg Tablet) 100 mg PO DAILY [facility] Last Admin: 02/02/22 07:48 Dose: 100 mg Documented By: KENZIE Carvedilol (Carvedilol 6.25 Mg Tablet) 6.25 mg PO BID [facility]; Protocol Last Admin: 02/02/22 07:48 Dose: 6.25 mg Documented By: KENZIE Metronidazole (Flagyl) 500 mg in 100 mls @ 100 mls/hr IV Q8H [facility] Last Infusion: 02/02/22 13:57 Dose: 0 mls/hr Documented By: KENZIE Ceftriaxone Sodium 1 gm/ (Sodium Chloride) 50 mls @ 100 mls/hr IV Q24H [facility] Last Infusion: 02/01/22 22:35 Dose: 0 mls/hr Documented By: HO.CASSA Dextrose/Lactated Ringer's (D5lr) 1,000 mls @ 80 mls/hr IVCONT .[id number] [facility] Stop: 02/02/22 19:59 Last Admin: 02/02/22 07:50 Dose: 80 mls/hr Documented By: KENZIE Melatonin (Melatonin 3 Mg Tablet) 6 mg PO BEDTIME PRN PRN Reason: Insomnia Last Admin: 02/01/22 22:39 Dose: 6 mg Documented By: PUSHPA Omeprazole (Omeprazole 20 Mg Capsule.Dr) 20 mg PO DAILY [facility] Last Admin: 02/02/22 07:48 Dose: 20 mg Documented By: KENZIE Pharmacy Consult (Consult Rx Perform Med Rec) 1 each MISCELLANE ONCE PRN PRN Reason: Consult order Senna (Sennosides 8.6 Mg Tablet) 17.2 mg PO BEDTIME PRN PRN Reason: Constipation Sevelamer Carbonate (Sevelamer Carbonate Tablet 800 Mg Tablet) 800 mg PO TIDWM [facility] Last Admin: 02/02/22 12:50 Dose: 800 mg Documented By: KENZIE Sodium Chloride (0.9 % Sodium Chloride Flush 3 Ml Syringe) 3 ml IVFLUSH QSHIFT [facility] Last Admin: 02/02/22 07:56 Dose: Not Given Documented By: KENZIE Non-Admin Reason: IV Running Vitamin D (Cholecalciferol (Vitamin D3) 25 Mcg Tablet) 25 mcg PO DAILY [facility] Last Admin: 02/02/22 07:48 Dose: 25 mcg Documented By: KENIZE Labs CBC & Chem 7: 01/31/22 07:12 02/02/22 06:05 Labs: Laboratory Results - last 24 hr 02/02/22 02/02/22 06:05 07:09 Anion Gap 22 H Estim Creat Clear Calc 7.8 Estimated GFR 8 POC Glucose 59 L* Random Glucose 58 L* Calcium 8.2 L Total Bilirubin 0.5 Direct Bilirubin 0.2 AST 13 ALT 8 Alkaline Phosphatase 86 Total Protein 6.5 Albumin 3.0 L Assessment and Plan (1) Cholecystitis: Status: Acute (2) ESRD (end stage renal disease) on dialysis: Status: Acute (3) CHF exacerbation: Status: Acute Plan 71-year-old female with a past medical history of hypertension, hyperlipidemia, CAD, CHF status post AICD, paroxysmal AFib on Eliquis, history of ventricular tachycardia, ESRD on hemodialysis presented to the hospital with chief complaint of nausea/abdominal discomfort, and mild shortness of breath without associated fever chills cough or sputum production, and abdominal CT scan showed colilithiasis with mild gallbladder wall thickening with adjacent inflammation concerning for cholecystitis , abdominal ultrasound showed gallbladder sludge with stones with wall thickening consistent with acute cholecystitis but since patient noted to have abnormal chest x-ray suggestive of congestion patient admitted to medical floor. hypoglycemia likely due to NPO status treated with D50 and IV fluids since patient placed back on diet will DC fluids follow clinical course mild acute diastolic CHF exacerbation, resolved underwent hemodialysis and received 1 dose of Bumex,echo from last year showed EF 45-50%, no further workup warranted ?mild hyperkalemia resolved mild hyponatremia resolved ?end-stage renal disease on hemodialysis continue hemodialysis Sunday and Sunday being followed by Nephrology ?acute cholecystitis no fevers, normal WBC, abdominal pain improved on IV ceftriaxone and IV Flagyl day 4 since patient is clinically stable Dr. Romano do not recommend surgery will advance diet and follow clinical course ?history of paroxysmal atrial fibrillation continue amiodarone and hold Eliquis, resume from a.m. if tolerates diet ?history of hypertension? continue Coreg, hold amlodipine and hydralazine bp stable off these meds ?history of hyperlipidemia will resume statins upon discharge DVT prophylaxis with compression boots patient will need continued inpatient hospitalization due to acute cholecystitis currently NPO will advance diet and follow clinical course Quality Stroke Does the patient have a stroke diagnosis?: No VTE Prior VTE?: No VTE Risk Level:: Medical - moderate - high VTE Device Contraindication: Treatment Not Indicated VTE Drug Contraindication: N/A - Med Ordered
[2022-02-02] MEDS: Acetaminophen 325 MG TABLET 650 MG PO (17:30)
[2022-02-02] MEDS: 0.9 % Sodium Chloride Flush 3 ML SYRINGE IVFLUSH ×2 (17:31→21:01)
[2022-02-02 19:57] VITALS: BP 116/63; PULSE 66; RESP 18; TEMP 36.9; O2SAT 95
[2022-02-02] MEDS: cefTRIAXone sodium 1 GM in 0.9 % Sodium Chloride 50 ML IV (21:05)
[2022-02-02 23:41] VITALS: BP 123/60; PULSE 69; RESP 20; TEMP 36.6; O2SAT 95
[2022-02-03 04:00] VITALS: BP 130/72; PULSE 100; RESP 20; TEMP 36.6; O2SAT 96
[2022-02-03] MEDS: metroNIDAZOLE/NS 500 MG/100 ML PIGGYBACK 100 MG IV ×2 (05:26→13:41)
[2022-02-03 08:00] VITALS: BP 132/68; PULSE 68; RESP 12; TEMP 36.7
[2022-02-03] MEDS: Omeprazole 20 MG CAPSULE.DR PO (08:57)
[2022-02-03] MEDS: Sevelamer Carbonate Tablet 800 MG TABLET PO ×2 (08:58→13:41)
[2022-02-03] MEDS: carvediloL 6.25 MG TABLET PO (08:58)
[2022-02-03] MEDS: 0.9 % Sodium Chloride Flush 3 ML SYRINGE IVFLUSH (08:58)
[2022-02-03] MEDS: Amiodarone HCL 200 MG TABLET 100 MG PO (08:59)
[2022-02-03] MEDS: Cholecalciferol (Vitamin D3) 25 MCG TABLET PO (09:00)
--- NOTE | 2022-02-03 10:05 | PM.PNGS ---
Subjective Subjective Date of Service: 02/10/22 Interval history: denies abdominal pain feels well tolerating regular diet well Physical Exam Vital Signs: Vital Signs: Last Vital Signs Temp 98.0 F 02/03/22 08:00 Pulse 68 02/03/22 08:00 Resp 12 02/03/22 08:00 BP 132/68 02/03/22 08:00 Pulse Ox 96 02/03/22 04:00 O2 Del Method 02/03/22 08:00 O2 Flow Rate 100 02/03/22 08:00 BMI result Body Mass Index 23.1 Const: Other: eating breakfast, looks well General: comfortable and no acute distress Resp: Effort & Inspection: normal respiratory effort Cardio: Rate: regular rate GI: Palpation (GI): Soft to palpation, not firm, nontender and no guarding Objective Data Active Medications Acetaminophen (Acetaminophen 325 Mg Tablet) 650 mg PO Q6H PRN PRN Reason: Pain, Mild (Pain Scale 1-3) Last Admin: 02/02/22 17:30 Dose: 650 mg Documented By: KENZIE Amiodarone HCl (Amiodarone Hcl 200 Mg Tablet) 100 mg PO DAILY [facility] Last Admin: 02/03/22 08:59 Dose: 100 mg Documented By: MEGHNA Carvedilol (Carvedilol 6.25 Mg Tablet) 6.25 mg PO BID [facility]; Protocol Last Admin: 02/03/22 08:58 Dose: 6.25 mg Documented By: MEGHNA Metronidazole (Flagyl) 500 mg in 100 mls @ 100 mls/hr IV Q8H [facility] Last Infusion: 02/03/22 06:34 Dose: 0 mls/hr Documented By: DONALDO Ceftriaxone Sodium 1 gm/ (Sodium Chloride) 50 mls @ 100 mls/hr IV Q24H [facility] Last Infusion: 02/02/22 21:56 Dose: 0 mls/hr Documented By: DONALDO Melatonin (Melatonin 3 Mg Tablet) 6 mg PO BEDTIME PRN PRN Reason: Insomnia Last Admin: 02/01/22 22:39 Dose: 6 mg Documented By: PUSHPA Omeprazole (Omeprazole 20 Mg Capsule.) 20 mg PO DAILY [facility] Last Admin: 02/03/22 08:57 Dose: 20 mg Documented By: MEGHNA Pharmacy Consult (Consult Rx Perform Med Rec) 1 each MISCELLANE ONCE PRN PRN Reason: Consult order Senna (Sennosides 8.6 Mg Tablet) 17.2 mg PO BEDTIME PRN PRN Reason: Constipation Sevelamer Carbonate (Sevelamer Carbonate Tablet 800 Mg Tablet) 800 mg PO TIDWM [facility] Last Admin: 02/03/22 08:58 Dose: 800 mg Documented By: MEGHNA Sodium Chloride (0.9 % Sodium Chloride Flush 3 Ml Syringe) 3 ml IVFLUSH QSHIFT [facility] Last Admin: 02/03/22 08:58 Dose: 3 ml Documented By: MEGHNA Vitamin D (Cholecalciferol (Vitamin D3) 25 Mcg Tablet) 25 mcg PO DAILY [facility] Last Admin: 02/03/22 09:00 Dose: 25 mcg Documented By: MEGHNA Labs CBC & Chem 7: 01/31/22 07:12 02/02/22 06:05 Procedures Date of Service Date of Service: 02/03/22 Progress Note: A&P Assessment and plan (1) Cholecystitis: Status: Acute Assessment and Plan: asymptomatic now seems to have responded well to antibiotic therapy good GI functions no pain or tenderness continue antibiotic treatment seems to be ready to be discharged today or tomorrow Time Spent With Patient Time: Total time spent is greater than 50% in coordination of care (as documented) at patient's floor/unit and/or counseling patient: Quality Stroke Does the patient have a stroke diagnosis?: No VTE Prior VTE?: No VTE Risk Level:: Medical - moderate - high VTE Device Contraindication: Treatment Not Indicated VTE Drug Contraindication: N/A - Med Ordered
--- NOTE | 2022-02-03 12:55 | MHC.CM.PN ---
pt dcd home no skilled servceos ordered by
--- NOTE | 2022-02-03 12:56 | PM.DS ---
DS: Providers Provider Date of Service: 02/03/22 Date of admission: 01/30/22 02:03 Primary care physician: Christiane Vernon MD Consults: 01/30/22 01:52 Consult to General Surgery Stat Consulting Provider: Thomas Ricci Reason for consultation: Cholecystitis Has provider been notified: Yes 01/30/22 02:02 Consult to Cardiology Routine Consulting Provider: Orion Adams Reason for consultation: pt wuith CHF; pre op eval ; p/w acute cholecystitis Consult to Nephrology Routine Consulting Provider: Jesse Franco Reason for consultation: esrd DS: Diagnosis Discharge Diagnosis (1) Cholecystitis: Status: Acute DS: Summary Hospital Course Hospital Course: History of presenting illness Date of Service: 01/30/22 Chief Complaint: Nausea/vomiting 71-year-old female with a past medical history of hypertension, hyperlipidemia, CAD, CHF status post AICD, paroxysmal AFib on Eliquis, history of ventricular tachycardia, ESRD on hemodialysis presented to the hospital today with a chief complaint of nausea/abdominal discomfort.? Patient reported that over the past 2 days she has been having epigastric pain associated nausea and vomiting.? Denies any blood in the vomitus.? Denies any diarrhea.? Denies any blood in the stool. ? Patient denies any chest pain or palpitations.? Reports mild shortness of breath.? Denies any fever chills cough or sputum production. ? Denies any urinary symptoms.? ? Review of all other systems is negative except mentioned above ? ER course:? Per ER team patient's CT scan showed findings concerning for acute cholecystitis.? Confirmed with the right upper quadrant ultrasound.? Patient was afebrile.? Patient was empirically given ceftriaxone and Flagyl.? General surgery Dr. Ricci was notified-recommended admission to the medicine service.? Mentioned that patient was also hypoxic with chest x-ray showing pulmonary congestion.? Being planned to give IV Bumex. Admitted to the hospital for further management hospital course 71-year-old female with a past medical history of hypertension, hyperlipidemia, CAD, CHF status post AICD, paroxysmal AFib on Eliquis, history of ventricular tachycardia, ESRD on hemodialysis presented to the hospital with chief complaint of nausea/abdominal discomfort, and mild shortness of breath without associated fever chills cough or sputum production, and abdominal CT scan showed colilithiasis with mild gallbladder wall thickening with adjacent inflammation concerning for cholecystitis , abdominal ultrasound showed gallbladder sludge with stones with wall thickening consistent with acute cholecystitis but since patient noted to have abnormal chest x-ray suggestive of congestion patient admitted to medical floor. ?mild acute diastolic CHF exacerbation, resolved underwent hemodialysis and received 1 dose of Bumex,echo from last year showed EF 45-50%, no further workup warranted acute cholecystitis? patient had no fevers, normal WBC, treated with IV ceftriaxone and IV Flagyl since patient remained clinically stable Dr. Romano did did not recommend surgery patient diet was gradually advanced that she is tolerating well with no abdominal pain no fevers no chills LFTs remains within normal range the patient is being discharged home on by mouth antibiotics to finish total 7 day course of antibiotics. She has been recommended to return to [facility] with any recurrence of abdominal pain nausea vomiting, fever chills or rigors. She has been recommended to follow low-fat diet ?mild hyperkalemia? resolved ?mild hyponatremia? resolved ?end-stage renal disease on hemodialysis? continue hemodialysis Sunday and Sunday ?history of paroxysmal atrial fibrillation continue amiodarone and Eliquis ?history of hypertension? continue Coreg, and amlodipine , discontinue hydralazine bp stable off med. ?history of hyperlipidemia continue statins Time Spent with Patient Time attestation: Total time spent providing and/or coordinating discharge services: Discharge coordination time: Greater than 30 minutes Quality: Safe Use of Opioids Does Pt have an Active Cancer Diagnosis on the Problem List?: No Quality: Stroke Does the patient have a stroke diagnosis?: No Physical Exam Vital Signs: Vital Signs: Last Vital Signs Temp 98.0 F 02/03/22 08:00 Pulse 68 02/03/22 08:00 Resp 12 02/03/22 08:00 BP 132/68 02/03/22 08:00 Pulse Ox 96 02/03/22 04:00 O2 Del Method 02/03/22 08:00 O2 Flow Rate 100 02/03/22 08:00 BMI result Body Mass Index 23.1 Const: Other: General awake alert x3,in no acute distress.? Neck no JVD. CVS? regular rate rhythm, Respiratory lungs clear to auscultation, no respiratory distress, no wheeze, no rhonchi. Gastrointestinal abdomen soft, Nontender, bowel sounds audible, no guarding , no rigidity. Extremities no edema. Neuro nonfocal , speech clear. Skin no rash psych appropriate affect DS: Data Data Completed and Pending Completed studies during hospitalization [Text1]: Procedures Drainage of Peritoneal Cavity, Percutaneous Approach (05/10/21) Insertion of Infusion Device into Right Internal Jugular Vein, Percutaneous Approach (05/10/21) Insertion of Tunneled Vascular Access Device into Chest Subcutaneous Tissue and Fascia, Percutaneous Approach (05/10/21) Performance of Urinary Filtration, Intermittent, Less than 6 Hours Per Day (05/10/21) Labs on day of discharge: Preliminary micro results at discharge 01/30/22 02:14 Blood Culture - Preliminary Blood - Venous No growth after 48 hours. 01/30/22 02:00 Blood Culture - Preliminary Blood - Venous No growth after 48 hours. Discharge Plan Discharge Patient Disposition: Home, Self-Care Discharge Diagnosis: acute cholecystitis mild acute diastolic congestive heart failure exacerbation mild hyperkalemia end-stage renal disease on hemodialysis Referrals: Christiane Vernon MD [Primary Care Provider] - 1 Week Discharge Medications: New metronidazole 500 mg tablet 500 mg PO Q8H Qty: 8 0RF cefuroxime axetil 500 mg tablet 500 mg PO Q12H Qty: 6 0RF Continued Eliquis 5 mg tablet 5 mg PO BID Qty: 180 3RF carvedilol 6.25 mg tablet 6.25 mg PO BID Qty: 180 1RF amiodarone 200 mg tablet 100 mg PO DAILY Qty: 45 1RF magnesium oxide 400 mg (241.3 mg magnesium) tablet 400 mg PO DAILY Qty: 90 0RF omeprazole 20 mg capsule,delayed release(DR/EC) 20 mg PO DAILY@0630 PRN (Reason: Acid Reflux) loratadine 10 mg tablet 10 mg PO Q2D calcium carbonate-vitamin D3 600 mg-10 mcg (400 unit) tablet 1 tab PO BEDTIME lidocaine-prilocaine 2.5-2.5 % cream 1 appl topical 3XW sevelamer carbonate 800 mg tablet 1 tab PO TID acetaminophen 325 mg Tablet 650 mg PO Q4H PRN (Reason: Pain (Scale Score 1-3)) amlodipine 10 mg tablet 5 mg PO DAILY cholecalciferol (vitamin D3) 25 mcg (1,000 unit) capsule 25 mcg PO DAILY atorvastatin 80 mg tablet 80 mg PO BEDTIME Discontinued hydralazine 25 mg tablet 1 tab PO TID Rx Instructions: hold sbp <120 Discharge Orders: Discharge Order (Routine); Ordered 02/03/22 Ordered By: Jose Soto Diet: Low fat, low cholesterol Activity on Discharge: As tolerated Stand Alone Forms: Patient Portal Discharge page Care Plan Goals: acute cholecystitis improved with antibiotics take Flagyl and Ceftin as ordered end-stage renal disease continue hemodialysis as before Stop Hydralazine since BP noted to be stable Without it. Health Concerns: end-stage renal disease continue hemodialysis paroxysmal atrial fibrillation continue Eliquis and Coreg Plan of Treatment: continue hemodialysis as before continue all home medications follow-up with primary care physician and Nephrology returned to [facility] with recurrent episode of abdominal pain nausea vomiting or shortness of breath. Assessment: as above
--- NOTE | 2022-02-03 16:47 | PC.NURSE ---
Alert and oriented. Denies pain, VSS, afebrile, no acute resp. distress noted. Took all schedule meds as ordered. No adverse reactions noted. Went to dialysis. New order to discharge patient home. Went over discharge instructions, follow up apt, medications administrations with patient and nimonica Cornejo, verbalized understanding back. [facility]. Left via car with niece.
== END 2022-02-03 16:30 | disposition home or self-care (01) | DRG 444 ==
LOC: HO.ED 01-30 01:51 → HO.EDOVER 01-30 02:09 → HO.IMC 02-01 03:49
PROVIDERS: Emergency Medicine Emergency Medical Services; Surgery; Admitting Provider Hospitalist; Emergency Provider Student in an Organized Health Care Education/Training Program; PCP Family Medicine; Visit Provider Hospitalist
DX: K81.0 Acute cholecystitis (principal); I50.33 Acute on chronic diastolic (congestive) heart failure; N18.6 End stage renal disease; I13.2 Hypertensive heart and chronic kidney disease with heart failure and with stage 5 chronic kidney disease, or end stage renal disease; E87.1 Hypo-osmolality and hyponatremia; I47.2 Ventricular tachycardia; I25.10 Atherosclerotic heart disease of native coronary artery without angina pectoris; E78.5 Hyperlipidemia, unspecified; I48.0 Paroxysmal atrial fibrillation; E16.2 Hypoglycemia, unspecified; E87.5 Hyperkalemia; I25.5 Ischemic cardiomyopathy; I25.2 Old myocardial infarction; Z20.822 Contact with and (suspected) exposure to COVID-19; Z99.2 Dependence on renal dialysis; Z86.73 Personal history of transient ischemic attack (TIA), and cerebral infarction without residual deficits; Z95.810 Presence of automatic (implantable) cardiac defibrillator; Z79.01 Long term (current) use of anticoagulants; Z79.899 Other long term (current) drug therapy
CPT/HCPCS: 36415; 71045; 74176; 74181; 76705; 78226; 80048; 80053; 80076; 82728; 82947; 83540; 83605; 83690; 83735; 83880; 85025; 85027; 86140; 87040; 87635; 90686; 90935; 90999; 93005; 96374; 99285; A9537; J0696; J1170; J2405

== ENCOUNTER 2022-02-03 23:56 | Inpatient (IN) | payer OTHER, SELFPAY ==
--- NOTE | ~2022-02-03 | US_ITS ---
EXAMINATION: US ABDOMEN LIMITED CLINICAL INFORMATION: Right upper quadrant pain. Acute cholecystitis. COMPARISON: Previous abdominal ultrasound 01/30/2022. TECHNIQUE: Real-time imaging of the right upper quadrant abdominal viscera. FINDINGS: GALLBLADDER: The gallbladder is slightly enlarged. The gallbladder wall is thickened and edematous measuring up to 0.8 cm. There is sludge and small stones in the gallbladder. COMMON BILE DUCT: Normal in caliber measuring 0.4 cm in diameter. US/US abdomen limited IMPRESSION: Acute cholecystitis with sludge and small stones in the gallbladder. Gallbladder wall thickness has increased from 01/30/2022 exam.
--- NOTE | ~2022-02-03 | NM_ITS ---
EXAMINATION: BILIARY TRACT IMAGING STUDY CLINICAL INFORMATION: Gallstones, elevated bilirubin, question cholecystitis.. COMPARISON: No previous biliary scan is available for comparison. Abdominal ultrasound dated 02/04/2022 is available for comparison. CT of the abdomen and pelvis dated 01/29/2022 is also available for comparison.. TECHNIQUE: Serial gamma scintillation camera images were obtained over the abdomen for a total observation period of 3 hours following the intravenous administration of 5 mCi Tc-99m Mebrofenin. FINDINGS: There is good concentration of activity in the liver by 5 minutes post injection. Biliary activity is visualized by 10 minutes. Small bowel is well visualized by 15 minutes. The gallbladder is not visualized at any time during the study up to 3 hours post injection. On these delayed images there is diffuse small bowel activity visualized. Is also mild diffuse activity still retained within the liver. NM/NM hepatobiliary wo pharm IMPRESSION: Nonvisualization the gallbladder is evidence of an obstructed cystic duct and strong evidence to suggest the diagnosis of acute cholecystitis. The common bile duct is patent. Prolonged retention of activity in the liver is evidence of diffuse hepatocellular disease.
--- NOTE | ~2022-02-03 | MR_ITS ---
EXAMINATION: MRI ABDOMEN WITHOUT CONTRAST (MRCP) CLINICAL INFORMATION: Gallstones COMPARISON: Ultrasound 02/04/2022 and earlier TECHNIQUE: Multiplanar MR images through the abdomen were obtained on a 1.5 Marilynn MR system without IV contrast. Heavily T2-weighted MRCP sequences of the biliary tree were obtained in multiple planes. FINDINGS: LUNG BASES: Trace right pleural effusion. LIVER: There is loss of signal on later phases gradient echo T1-weighted images suggesting abnormal iron deposition. There is periportal edema. No focal liver lesion seen. GALLBLADDER: The gallbladder is abnormal in appearance with irregular wall thickening and heterogeneous internal material consistent with the previously seen sludge and stones. BILIARY TREE: No intrahepatic biliary ductal dilation. The common bile duct is normal in caliber, 0.4 cm in diameter. No intraluminal filling defects seen. PANCREAS: Normal noncontrast appearance of the pancreas. SPLEEN: 5 mm simple cyst along the posterior margin of the spleen. There is abnormal hypointense T2 signal throughout the spleen suggesting abnormal iron deposition. ADRENAL GLANDS: Normal. No adrenal mass. KIDNEYS AND URETERS: Both kidneys are atrophic with several well-circumscribed T2 bright homogeneous simple appearing cysts. No imaging follow-up recommended. No hydronephrosis or suspicious mass. LYMPHOVASCULAR STRUCTURES: Normal caliber aorta. No retroperitoneal lymphadenopathy. OSSEOUS STRUCTURES: Multilevel degenerative changes of the thoracolumbar spine. No ascites. Visualized stomach, small bowel, and colon are nondilated. MR/MR MRCP IMPRESSION: Abnormal appearance to the gallbladder in keeping with suspected acute cholecystitis from prior ultrasound examinations. There is periportal edema presumably related to the suspected acute cholecystitis. No biliary ductal dilatation. No choledocholithiasis. Abnormal signal in the liver and spleen suggesting abnormal iron deposition.
[2022-02-04] VITALS (8 sets, daily range): BP systolic 95–150; BP diastolic 54–83; PULSE 62–77; RESP 16–20; TEMP 36.5–37.4; O2SAT 95–100; BMI 18.3
[2022-02-04] MEDS: Ondansetron ODT 4 MG TAB.RAPDIS TRANSLINGU (01:32)
--- NOTE | 2022-02-04 07:04 | ED.GENADULT ---
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 AFib on Eliquis, end-stage renal disease on hemodialysis, patient was recently admitted to the hospital for acute cholecystitis and congestive heart failure patient was discharged home yesterday on metronidazole and cefuroxime, patient returned today for increased pain in the right upper quadrant and right flank area which is similar pain before she was discharged associated with some nausea. No fever or chills. Related Data Home Medications Medication Instructions Recorded Confirmed atorvastatin 80 mg tablet 80 mg PO BEDTIME 04/20/20 01/30/22 cholecalciferol (vitamin D3) 25 25 mcg PO DAILY 04/20/20 01/30/22 mcg (1,000 unit) capsule calcium carbonate 600 mg-vitamin 1 tab PO BEDTIME 05/10/21 01/30/22 D3 10 mcg (400 unit) tablet loratadine 10 mg tablet 10 mg PO Q2D 05/10/21 01/30/22 omeprazole 20 mg capsule,delayed 20 mg PO DAILY@0630 PRN Acid Reflux 05/10/21 01/30/22 release acetaminophen 325 mg tablet 650 mg PO Q4H PRN Pain (Scale 01/30/22 01/30/22 Score 1-3) lidocaine-prilocaine 2.5 %-2.5 % 1 appl topical 3XW prior to 01/30/22 01/30/22 topical cream dialysis sevelamer carbonate 800 mg tablet 1 tab PO TID 01/30/22 01/30/22 amlodipine 10 mg tablet 5 mg PO DAILY 01/31/22 01/31/22 Previous Rx's Medication Instructions Recorded apixaban 5 mg tablet (Eliquis) 5 mg PO BID #180 tabs 05/05/21 carvedilol 6.25 mg tablet 6.25 mg PO BID #180 tabs 08/30/21 amiodarone 200 mg tablet 100 mg PO DAILY #45 tabs 11/16/21 magnesium oxide 400 mg (241.3 mg 400 mg PO DAILY #90 tabs 01/13/22 magnesium) tablet cefuroxime axetil 500 mg tablet 500 mg PO Q12H #6 tabs 02/03/22 metronidazole 500 mg tablet 500 mg PO Q8H #8 tabs 02/03/22 Allergies Allergy/AdvReac Type Severity Reaction Status Date / Time NSAIDS (Non-Steroidal Allergy Unknown Unknown Verified 07/09/21 03:29 Anti-Inflamma Review of Systems Review of Systems: All other systems are reviewed and are negative Constitutional: Reports as per HPI and Reports no additional constitutional complaints Eyes: Reports as per HPI and Reports no additional eye complaints Reports system reviewed and no additional complaints, except as documented Cardiovascular: Reports as per HPI and Reports no additional cardiovascular complaints Respiratory: Reports as per HPI and Reports no additional respiratory complaints Gastrointestinal: Reports as per HPI and Reports no additional gastrointestinal complaints Genitourinary: Reports no additional female genitourinary complaints Musculoskeletal: Reports no additional musculoskeletal complaints Skin/Breast: Reports system reviewed and no additional complaints, except as docu Psychiatric: Reports no additional psychiatric complaints Endocrine: Reports no additional endocrine complaints Hematologic/Lymphatic: Reports no additional hematologic/lymphatic complaints Allergic/Immunologic: Reports no additional allergic/immunologic complaints Reports system reviewed and no additional complaints, except as documented and Reports Abnormal speech present [facility] Past Medical History Medical History CAD (coronary artery disease) ESRD (end stage renal disease) HTN (hypertension) Hyperlipidemia ICD (implantable cardioverter-defibrillator) in place Ischemic cardiomyopathy Paroxysmal atrial fibrillation Ventricular tachycardia Surgical History History of pubovaginal sling Hx of knee surgery Family History Family History Father No problems noted. Mother No problems noted. Social History 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 services: No Unable to assess alcohol history related to: Unknown Alcohol intake: never Patient Tobacco Use Status: Never used Tobacco Use of substances other than those prescribed or required for medical reasons: No Advance Directives: No service: No Current occupational status: disabled Physical Exam ED Vital Signs: Vital Signs - 24 hr 02/04/22 00:15 02/04/22 05:52 02/04/22 07:11 Temperature 98.4 F 97.7 F Pulse Rate 77 68 67 Respiratory Rate 18 16 16 Blood Pressure 150/80 H 121/83 116/57 L Pulse Oximetry 97 98 99 Oxygen Delivery Method Room Air Room Air Room Air 02/04/22 07:23 Temperature Pulse Rate 68 Respiratory Rate 18 Blood Pressure 124/54 L Pulse Oximetry 99 Oxygen Delivery Method Room Air BMI result Body Mass Index 18.3 Vital signs have been reviewed as appeared to be correct. Blood pressure normal. Heart rate normal. Respiration rate normal. Temperature normal. Oxygen saturation normal. Appearance: Alert. Oriented X3. No acute distress. Head: Normal external exam. Normocephalic. Atraumatic. No Rosado signs noted. No raccoon eyes noted Eyes: PERRLA. EOMI. Conjunctiva and sclera normal. Eyelids normal. ENT: TM's Normal. Pharynx normal. Uvula midline. Moist mucous membranes. No trismus noted. No drooling noted. No muffled voice noted. Neck: Normal inspection. Neck supple. FROM. No adenopathy. Thyroid Normal. No meningeal signs. No neck mass noted. CVS: Normal heart rate and rhythm. Heart sound normal. No murmurs noted. Pulses normal throughout. Respiratory: No respiratory distress. Painless inspiration. Breath sounds normal. No wheezes/rales/rhonchi noted. Chest nontender. No accessory muscle usage noted or decreased air movement noted. Abdomen: Soft and nontender. Bowel sounds normal in all 4 quadrants. No distention noted. No organomegaly noted. No visible injury noted. Back: No CVA tenderness. Full range of motion noted. Skin: Skin warm and dry. Normal skin color. Normal skin turgor. No rashes/lesions/lacerations noted. Extremities: No lower extremity edema. Extremities exhibit normal range of motion. Extremities nontender. Neuro: Oriented X 3. Cranial nerve exam: II-XII are grossly intact No motor deficit. No sensory deficit. Reflexes normal. Course Course Course Narrative: 71-year-old female came in for evaluation of upper abdominal and right flank pain. Patient is on 5 days of antibiotic for acute cholecystitis, worsening of LFTs and gallbladder wall thickening from the last week ultrasound. Case discussed with Dr. Romano. To admit the patient. Medical Decision Making Lab Data Lab results reviewed: Yes I reviewed the patient's lab results. Result diagrams: 02/04/22 07:10 02/04/22 07:10 Labs: Lab Results 02/04/22 02/04/22 Range/Units 07:10 07:10 WBC 9.3 (4.8-10.8) X10*3/uL RBC 4.61 (4.20-5.50) X10*6/uL Hgb 12.6 (12.0-16.0) g/dl Hct 41.0 (37.0-47.0) % MCV 88.9 (80.0-98.0) fL MCH 27.3 (27.0-33.0) pg MCHC 30.7 L (31.0-35.0) g/dl RDW 15.5 (11.0-16.0) % Plt Count 145 L D (160-400) X10*3/uL MPV 8.5 L (9.4-12.3) fL Immature Gran % (Auto) 0.3 (0.0-0.4) % Neut % (Auto) 84.0 H (45-73) % Lymph % (Auto) 6.3 L (20-40) % [place] % (Auto) 9.3 (2-11) % Eos % (Auto) 0.0 (0-4) % Baso % (Auto) 0.1 (0-2) % Lymph # (Auto) 0.6 L (1.2-4.9) X10*3/uL [place] # (Auto) 0.9 (0.1-1.2) X10*3/uL Eos # (Auto) 0.0 (0.0-0.4) X10*3/uL Baso # (Auto) 0.0 (0.0-0.2) X10*3/uL Abs Immat Gran (auto) 0.03 (0.00-0.03) X10*3/uL Absolute Neuts (auto) 7.8 (2.0-8.3) x10*3/uL Absolute Nucleated RBC 0.000 (0.0-0.012) X10*3/uL Nucleated RBC % (auto) 0.0 (0.0-0.2) /100WBC Sodium 132 L (135-145) mmol/L Potassium 3.7 (3.3-5.1) mmol/L Chloride 93 L (96-108) mmol/L Carbon Dioxide 22 (22-29) mmol/L Anion Gap 21 H (12-20) BUN 23 H (9-16) mg/dL Creatinine 5.30 H* (0.5-1.4) mg/dL Estim Creat Clear Calc 7.4 Estimated GFR 8 Random Glucose 154 H (60-115) mg/dL Calcium 8.6 (8.4-10.2) mg/dL Total Bilirubin 1.6 H (0.0-1.0) mg/dL Direct Bilirubin 1.3 H (0.0-0.5) mg/dL AST 103 H (5-31) U/L ALT 19 (0-31) U/L Alkaline Phosphatase 539 H D (39-117) U/L Total Protein 7.6 (6.5-8.0) g/dL Albumin 3.5 (3.5-5.0) g/dL Lipase 132 H (8-78) U/L Imaging Data Gallbladder ultrasound: Attestation: I personally reviewed and interpreted this imaging study as follows: Radiologist's impression: Acute cholecystitis with sludge and small stones in the gallbladder. Gallbladder wall thickness has increased from 01/30/2022 exam. Discharge Plan Discharge Clinical Impression: Acute calculous cholecystitis Patient Disposition: Admitted As Inpatient
[2022-02-04 07:15] LABS: MANUAL DIFF FLAG NO
[2022-02-04 07:16] LABS: Basophils Percent Auto 0.1 % (0-2); Hemoglobin 12.6 g/dl (12.0-16.0); Imm Gran Abs Auto 0.03 X10*3/uL (0.00-0.03); Imm Gran Pct Auto 0.3 % (0.0-0.4); Lymphocytes Absolute Auto 0.6 X10*3/uL (1.2-4.9); Lymphocytes Percent Auto 6.3 % (20-40); Mean Corpuscular HGB Conc 30.7 g/dl (31.0-35.0); Mean Corpuscular Hemoglobin 27.3 pg (27.0-33.0); Mean Corpuscular Volume 88.9 fL (80.0-98.0); Mean Platelet Volume 8.5 fL (9.4-12.3); Monocytes Absolute Auto 0.9 X10*3/uL (0.1-1.2); Monocytes Percent Auto 9.3 % (2-11); Neutrophils Absolute Auto 7.8 x10*3/uL (2.0-8.3); Platelet Count 145 X10*3/uL (160-400); Red Blood Count 4.61 X10*6/uL (4.20-5.50); Red Cell Distribution Width 15.5 % (11.0-16.0); White Blood Count 9.3 X10*3/uL (4.8-10.8)
[2022-02-04] MEDS: oxyCODONE HCl Immed Release 5 MG TABLET PO (07:34)
--- NOTE | 2022-02-04 07:40 | PC.NURSE ---
Patient skin warm and color adequate to ethnicity. alert and oriented. she is complaining of right upper abdominal pain radiating to the back, bowel sounds are hypoactive in all q. she states zofran helped with nausea. Patient has a pacemaker in place and does not remember how long she had it put on.
[2022-02-04 08:01] LABS: Albumin Level 3.5 g/dL (3.5-5.0); Anion Gap 21 (12-20); Bilirubin Direct 1.3 mg/dL (0.0-0.5); Bilirubin Total 1.6 mg/dL (0.0-1.0); Blood Urea Nitrogen 23 mg/dL (9-16); Calcium 8.6 mg/dL (8.4-10.2); Carbon Dioxide 22 mmol/L (22-29); Chloride 93 mmol/L (96-108); Creatinine Clr Calc Pharmacy 7.4; Estimated Glomerular Filt Rate 8; Glucose Random 154 mg/dL (60-115); Lipase 132 U/L (8-78); Potassium 3.7 mmol/L (3.3-5.1); Sodium 132 mmol/L (135-145); Total Protein 7.6 g/dL (6.5-8.0)
[2022-02-04 08:15] LABS: Alanine Aminotransferase 19 U/L (0-31); Alkaline Phosphatase 539 U/L (39-117); Aspartate Amino Transferase 103 U/L (5-31)
--- NOTE | 2022-02-04 11:02 | PHA.MEDREC ---
Pharmacy Consult ? Medication Reconciliation Pharmacy has completed the medication reconciliation. Patient was discharged yesterday. Per [facility], should be on [facility]. Thanks Akash
--- NOTE | 2022-02-04 11:05 | PM.CNGS ---
History of Present Illness Consult details Consult date: 02/04/22 Narrative: 71-year-old female admitted because of back pain. She is well known to me. She actually had been in the hospital the past week because of what appeared to be an episode of cholecystitis. She has multiple medical problems including end-stage renal disease on hemodialysis, and cardiomyopathy. She had been discharged yesterday. She actually had been tolerating regular diet for 2-3 days and has had no significant pain or tenderness. However, she says that she had back pain last night. This had persisted throughout the night so she was brought to the ER early this morning. She denies any fever. She says her back pain is much better now. She actually denies abdominal pain. Her bilirubin was however elevated 1.6/1.3. Review of Systems Constitutional: Constitutional: Denies chills and Denies fever(s) Cardiovascular: Cardiovascular: Denies chest pain, Denies dyspnea and Denies dyspnea on exertion Respiratory: Respiratory: Denies cough, Denies dyspnea and Denies dyspnea on exertion Gastrointestinal: Gastrointestinal: Denies hematochezia and Denies change in bowel habits Genitourinary: Genitourinary: Denies hematuria Musculoskeletal: Musculoskeletal: Reports back pain and Denies limited range of motion Neurologic: Denies focal weakness and Denies convulsions Psychiatric: Psychiatric: Denies depression and Denies mood swings PMFSH Past Medical History Medical History CAD (coronary artery disease) Elevated bilirubin ESRD (end stage renal disease) HTN (hypertension) Hyperlipidemia ICD (implantable cardioverter-defibrillator) in place Ischemic cardiomyopathy Paroxysmal atrial fibrillation Ventricular tachycardia Family History Family History Father No problems noted. Mother No problems noted. 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) Unable to assess alcohol history related to: Unknown Alcohol intake: never Patient Tobacco Use Status: Never used Tobacco service: No Current occupational status: unemployed and disabled Meds Allergies Allergy/AdvReac Type Severity Reaction Status Date / Time NSAIDS (Non-Steroidal Allergy Unknown Unknown Verified 07/09/21 03:29 Anti-Inflamma Active Medications: Current Medications Pharmacy Consult (Consult Rx Perform Med Rec) 1 each MISCELLANE ONCE PRN PRN Reason: Consult order Home Medications Medication Instructions Recorded Confirmed Last Taken Type atorvastatin 80 mg tablet 80 mg PO BEDTIME 04/20/20 02/04/22 05/09/21 History cholecalciferol (vitamin D3) 25 25 mcg PO DAILY 04/20/20 02/04/22 05/10/21 History mcg (1,000 unit) capsule calcium carbonate 600 mg-vitamin 1 tab PO BEDTIME 05/10/21 02/04/22 05/09/21 History D3 10 mcg (400 unit) tablet loratadine 10 mg tablet 10 mg PO Q2D 05/10/21 02/04/22 05/10/21 History omeprazole 20 mg capsule,delayed 20 mg PO DAILY@0630 PRN Acid Reflux 05/10/21 02/04/22 05/10/21 History release acetaminophen 325 mg tablet 650 mg PO Q4H PRN Pain (Scale 01/30/22 02/04/22 Unknown History Score 1-3) lidocaine-prilocaine 2.5 %-2.5 % 1 appl topical 3XW prior to 01/30/22 02/04/22 Unknown History topical cream dialysis sevelamer carbonate 800 mg tablet 1 tab PO TID 01/30/22 02/04/22 Unknown History Physical Exam Vital Signs: Vital Signs: Last Vital Signs Temp 97.7 F 02/04/22 05:52 Pulse 68 02/04/22 07:23 Resp 18 02/04/22 07:23 BP 124/54 L 02/04/22 07:23 Pulse Ox 99 02/04/22 07:23 O2 Del Method 02/04/22 07:23 BMI result Body Mass Index 18.3 Const: Other: Appears comfort General: no acute distress Orientation/consciousness: patient oriented x3 Neck: Neck: Yes no lymphadenopathy Resp: Auscultation: clear to auscultation bilaterally Cardio: Rhythm: regular rhythm GI: Other: no Solsi's sign Palpation (GI): Soft to palpation, nontender and no guarding Neuro: General: patient oriented x3 Results Labs Result diagrams: 02/08/22 08:10 02/05/22 06:53 Labs: Abnormal lab results 02/04/22 02/04/22 Range/Units 07:10 07:10 MCHC 30.7 L (31.0-35.0) g/dl Plt Count 145 L D (160-400) X10*3/uL MPV 8.5 L (9.4-12.3) fL Neut % (Auto) 84.0 H (45-73) % Lymph % (Auto) 6.3 L (20-40) % Lymph # (Auto) 0.6 L (1.2-4.9) X10*3/uL Sodium 132 L (135-145) mmol/L Chloride 93 L (96-108) mmol/L Anion Gap 21 H (12-20) BUN 23 H (9-16) mg/dL Creatinine 5.30 H* (0.5-1.4) mg/dL Random Glucose 154 H (60-115) mg/dL Total Bilirubin 1.6 H (0.0-1.0) mg/dL Direct Bilirubin 1.3 H (0.0-0.5) mg/dL AST 103 H (5-31) U/L Alkaline Phosphatase 539 H D (39-117) U/L Lipase 132 H (8-78) U/L Short CBC 02/04/22 Range/Units 07:10 WBC 9.3 (4.8-10.8) X10*3/uL Hgb 12.6 (12.0-16.0) g/dl Hct 41.0 (37.0-47.0) % Plt Count 145 L D (160-400) X10*3/uL BMP 02/04/22 07:10 Sodium 132 L Potassium 3.7 Chloride 93 L Carbon Dioxide 22 BUN 23 H Creatinine 5.30 H* Calcium 8.6 Liver Function 02/04/22 Range/Units 07:10 Total Bilirubin 1.6 H (0.0-1.0) mg/dL Direct Bilirubin 1.3 H (0.0-0.5) mg/dL AST 103 H (5-31) U/L ALT 19 (0-31) U/L Alkaline Phosphatase 539 H D (39-117) U/L Albumin 3.5 (3.5-5.0) g/dL All other labs normal. Assessment and Plan (1) Elevated bilirubin: Status: Acute Her bilirubin is 1.6/1.3. She does not have any significant right upper quadrant pain on tenderness. She complains of back pain although this seems to be resolved. She says she is comfortable at this time. She had an ultrasound again showing gallbladder wall. I am uncertain as to whether this represents acute cholecystitis as she he does not have any tenderness nor leukocytosis. This may be secondary to her renal disease as well with subsequent edema. I would follow her LFTs. If this continues to rise, she may need further imaging with CT scan or MRCP. Her exam is otherwise benign and she looks comfortable. She undergoes hemodialysis 3 times a week. It may be bet to hold Marina for now in case she needs invasive intervention Procedures Date of Service Date of Service: 02/04/22
--- NOTE | 2022-02-04 11:50 | PM.IMHP ---
History of Present Illness Date of Service: 02/04/22 Attending physician on admission: Jose Soto Chief Complaint: abdominal pain 71-year-old Czech-speaking female patient with past medical history of hypertension, hyperlipidemia, coronary artery disease, CHF status post AICD, paroxysmal atrial fibrillation on Eliquis, history of ventricular tachycardia, end-stage renal disease on hemodialysis was admitted to [facility] on 01/30/2022 with symptoms of nausea, vomiting with ultrasound and CT abdomen concerning for acute cholecystitis with normal LFTs, no fevers and normal WBC count patient was discharge from [facility] on 02/03 after being closely monitored for abdominal pain and since patient remained hemodynamically stable was discharged home on by mouth antibiotics for total 7 days however patient returned back to [facility] this morning due to complain of neck pain as well as left shoulder pain with radiation towards the right mid back and right upper quadrant workup in the emergency room showed elevated LFTs and ultrasound of the abdomen suggestive of acute cholecystitis, with sludge and small stones in the gallbladder ,gallbladder wall thickness has increased from 01/30 abdominal ultrasound , therefore patient is being admitted to [facility] for pain control and possible acute cholecystitis, of note patient is a poor historian. Review of Systems Review of Systems: General no headache ,no dizziness no fever chills. CVS no chest pain, no palpitation. Respiratory no cough, no sob. Gastrointestinal no nausea, no vomiting, no diarrhea Yes all other systems are reviewed and are negative [facility] Medical History CAD (coronary artery disease) Elevated bilirubin ESRD (end stage renal disease) HTN (hypertension) Hyperlipidemia ICD (implantable cardioverter-defibrillator) in place Ischemic cardiomyopathy Paroxysmal atrial fibrillation Ventricular tachycardia Family History Father No problems noted. Mother No problems noted. 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 If so, by whom?: No Do you feel safe in your current relationship?: Yes Is there a partner from a previous relationship who is making you feel unsafe now?: No Are you made to feel afraid or neglected: No Advance Directives: No Do you have thoughts of harming others: None Do you have a plan to hurt others: No Plan Recently lost weight without trying: No Nutrition Risks: Poor intake 0-25% >4 days Patient : No : No Poor oral hygiene: No service: No Current occupational status: disabled Meds Allergies Allergy/AdvReac Type Severity Reaction Status Date / Time NSAIDS (Non-Steroidal Allergy Unknown Unknown Verified 07/09/21 03:29 Anti-Inflamma Active Medications: Current Medications Acetaminophen (Acetaminophen 325 Mg Tablet) 650 mg PO Q6H PRN PRN Reason: Pain, Mild (Pain Scale 1-3) Amiodarone HCl (Amiodarone Hcl 200 Mg Tablet) 100 mg PO DAILY JOHAN Carvedilol (Carvedilol 6.25 Mg Tablet) 6.25 mg PO BID JOHAN; Protocol Dextrose/Sodium Chloride (D5ns) 1,000 mls @ 50 mls/hr IVCONT .Q20H JOHAN Melatonin (Melatonin 3 Mg Tablet) 3 mg PO BEDTIME PRN PRN Reason: Insomnia Non-Formulary Medication (Lidocaine-Prilocaine) 1 appl TOPICAL 3XW JOHAN Non-Formulary Medication (Calcium Carbonate-Vitamin D3) 1 tab PO BEDTIME JOHAN Omeprazole (Omeprazole 20 Mg Capsule.Dr) 20 mg PO DAILY@0630 PRN PRN Reason: Acid Reflux Ondansetron HCl (Ondansetron Hcl 4 Mg/2 Ml Vial) 4 mg IVPUSH Q8H PRN PRN Reason: Nausea and Vomiting Pharmacy Consult (Consult Rx Perform Med Rec) 1 each MISCELLANE ONCE PRN PRN Reason: Consult order Sevelamer Carbonate (Sevelamer Carbonate Tablet 800 Mg Tablet) 800 mg PO TID [facility] Sodium Chloride (0.9 % Sodium Chloride Flush 3 Ml Syringe) 3 ml IVFLUSH QSHIFT [facility] Vitamin D (Cholecalciferol (Vitamin D3) 25 Mcg Tablet) 25 mcg PO DAILY [facility] Home Medications Medication Instructions Recorded Confirmed Last Taken Type atorvastatin 80 mg tablet 80 mg PO BEDTIME 04/20/20 02/04/22 05/09/21 History cholecalciferol (vitamin D3) 25 25 mcg PO DAILY 04/20/20 02/04/22 05/10/21 History mcg (1,000 unit) capsule calcium carbonate 600 mg-vitamin 1 tab PO BEDTIME 05/10/21 02/04/22 05/09/21 History D3 10 mcg (400 unit) tablet loratadine 10 mg tablet 10 mg PO Q2D 05/10/21 02/04/22 05/10/21 History omeprazole 20 mg capsule,delayed 20 mg PO DAILY@0630 PRN Acid Reflux 05/10/21 02/04/22 05/10/21 History release acetaminophen 325 mg tablet 650 mg PO Q4H PRN Pain (Scale 01/30/22 02/04/22 Unknown History Score 1-3) lidocaine-prilocaine 2.5 %-2.5 % 1 appl topical 3XW prior to 01/30/22 02/04/22 Unknown History topical cream dialysis sevelamer carbonate 800 mg tablet 1 tab PO TID 01/30/22 02/04/22 Unknown History amlodipine 10 mg tablet 5 mg PO DAILY 01/31/22 02/04/22 Unknown History Physical Exam Vital Signs and Narrative: Vital Signs: Last Vital Signs Temp 97.7 F 02/04/22 05:52 Pulse 68 02/04/22 07:23 Resp 18 02/04/22 07:23 BP 124/54 L 02/04/22 07:23 Pulse Ox 99 02/04/22 07:23 O2 Del Method 02/04/22 07:23 BMI result Body Mass Index 18.3 Const: Other: General awake aler t x3,in no acute d istress.? Neck no JVD, no tenderness to palpation, no spasm. CVS? regula r rate rhythm, Res piratory lungs rochelle ar to auscultation , no respiratory d istress, no wheeze , no rhonchi. Wesly rointestinal abdom en soft, no tender ness, bowel sounds audible, no guard ing , no rigidity. Extremities no ed curt. Neuro nonfoca l , speech clear. Skin no rash muscu loskeletal left sh oulder no deformit y no tenderness to palpation psych a ppropriate affect Results Labs CBC and Chem 7: 02/05/22 06:53 02/05/22 06:53 Labs: Laboratory Results - last 24 hr 02/04/22 02/04/22 07:10 07:10 MCV 88.9 MCH 27.3 MCHC 30.7 L RDW 15.5 Plt Count 145 L D MPV 8.5 L Immature Gran % (Auto) 0.3 Neut % (Auto) 84.0 H Lymph % (Auto) 6.3 L [place] % (Auto) 9.3 Eos % (Auto) 0.0 Baso % (Auto) 0.1 Lymph # (Auto) 0.6 L [place] # (Auto) 0.9 Eos # (Auto) 0.0 Baso # (Auto) 0.0 Abs Immat Gran (auto) 0.03 Absolute Neuts (auto) 7.8 Absolute Nucleated RBC 0.000 Nucleated RBC % (auto) 0.0 Anion Gap 21 H Estim Creat Clear Calc 7.4 Estimated GFR 8 Random Glucose 154 H Calcium 8.6 Total Bilirubin 1.6 H Direct Bilirubin 1.3 H AST 103 H ALT 19 Alkaline Phosphatase 539 H D Total Protein 7.6 Albumin 3.5 Lipase 132 H Imaging Radiologist's Impressions: Impressions Abdomen Ultrasound 02/04/22 07:55 IMPRESSION: Acute cholecystitis with sludge and small stones in the gallbladder. Gallbladder wall thickness has increased from 01/30/2022 exam. Assessment and Plan (1) Elevated bilirubin: Status: Acute (2) Acute calculous cholecystitis: Status: Acute (3) ESRD (end stage renal disease) on dialysis: Status: Acute Plan 71-year-old female with a past medical history of hypertension, hyperlipidemia, CAD, CHF status post AICD, paroxysmal AFib on Eliquis, history of ventricular tachycardia, ESRD on hemodialysis presented to the hospital with chief complaint of neck, back pain and right upper quadrant abdominal discomfort, without associated fever chills cough or sputum production, an abdominal us showed colilithiasis with gallbladder wall thickening with adjacent inflammation concerning for cholecystitis , labs showed elevated LFTs elevated LFTs/ right midback pain/ abnormal abdominal ultrasound? no fevers, normal WBC, patient just discharged from [facility] yesterday after being treated with 5 days of IV antibiotics for acute cholecystitis at time of discharge patient had no abdominal pain , tolerated regular diet had normal LFTs will admit to medical floor keep her NPO, hold Eliquis,? follow LFTs , surgical consultation IV Dilaudid for pain control ?chf diastolic CHF no exacerbation, echo from last year showed EF 45-50%, no further workup warranted ??end-stage renal disease on hemodialysis? continue hemodialysis Sunday and Sunday will consult Nephrology ?history of paroxysmal atrial fibrillation continue amiodarone and hold Eliquis ?history of hypertension? continue Coreg, hold amlodipine and hydralazine follow BP ?history of hyperlipidemia hold statins ?DVT prophylaxis with compression boots ?patient will need 2 night inpatient stay for elevated lfts, possible acute cholecystitis requiring IV antibiotic and is NPO need close clinical follow up. Quality Stroke Does the patient have a stroke diagnosis?: No VTE Prior VTE?: No VTE Risk Level:: Medical - moderate - high VTE Device Contraindication: N/A - Device Ordered VTE Drug Contraindication: Treatment Not Indicated
[2022-02-04 12:03] LABS: COVID-19 Test Negative (Negative); IDNOW Serial# 16C4AD1C
[2022-02-04] MEDS: Amiodarone HCL 200 MG TABLET 100 MG PO (12:15)
[2022-02-04] MEDS: cefTRIAXone sodium 1 GM in 0.9 % Sodium Chloride 50 ML IV (12:15)
[2022-02-04] MEDS: Dextrose 5 % and 0.9 % NaCl 1,000 ML 50 ML IVCONT (12:19)
[2022-02-04] MEDS: metroNIDAZOLE/NS 500 MG/100 ML PIGGYBACK 100 MG IV ×2 (13:40→21:06)
--- NOTE | 2022-02-04 16:24 | PC.NURSE ---
report given to imc rn
[2022-02-04] MEDS: Sevelamer Carbonate Tablet 800 MG TABLET PO ×2 (16:43→21:05)
[2022-02-04] MEDS: Calcium + Vitamin D 250 MG TABLET PO (21:05)
[2022-02-04] MEDS: carvediloL 6.25 MG TABLET PO (21:05)
[2022-02-04] MEDS: 0.9 % Sodium Chloride Flush 3 ML SYRINGE IVFLUSH (21:11)
[2022-02-05] VITALS (7 sets, daily range): BP systolic 106–124; BP diastolic 54–64; PULSE 65–87; RESP 18–20; TEMP 36.1–36.9; O2SAT 94–98
[2022-02-05] MEDS: metroNIDAZOLE/NS 500 MG/100 ML PIGGYBACK 100 MG IV ×3 (03:47→20:22)
[2022-02-05] MEDS: HYDROmorphone HCl 0.5 MG/0.5 ML SYRINGE IVPUSH (05:24)
[2022-02-05] MEDS: ondansetron HCL 4 MG/2 ML VIAL IVPUSH (07:01)
[2022-02-05 07:14] LABS: Basophils Percent Auto 0.2 % (0-2); Eosinophils Absolute Auto 0.1 X10*3/uL (0.0-0.4); Eosinophils Percent Auto 1.3 % (0-4); Hematocrit 35.8 % (37.0-47.0); Hemoglobin 10.9 g/dl (12.0-16.0); Imm Gran Abs Auto 0.03 X10*3/uL (0.00-0.03); Imm Gran Pct Auto 0.5 % (0.0-0.4); Lymphocytes Absolute Auto 1.2 X10*3/uL (1.2-4.9); Lymphocytes Percent Auto 19.6 % (20-40); MANUAL DIFF FLAG NO; Mean Corpuscular HGB Conc 30.4 g/dl (31.0-35.0); Mean Corpuscular Volume 88.8 fL (80.0-98.0); Mean Platelet Volume 8.6 fL (9.4-12.3); Monocytes Absolute Auto 0.8 X10*3/uL (0.1-1.2); Monocytes Percent Auto 12.7 % (2-11); Neutrophils Absolute Auto 4.1 x10*3/uL (2.0-8.3); Neutrophils Percent Auto 65.7 % (45-73); Platelet Count 110 X10*3/uL (160-400); Red Blood Count 4.03 X10*6/uL (4.20-5.50); Red Cell Distribution Width 15.6 % (11.0-16.0); White Blood Count 6.3 X10*3/uL (4.8-10.8)
[2022-02-05 08:14] LABS: Alanine Aminotransferase 18 U/L (0-31); Albumin Level 2.8 g/dL (3.5-5.0); Alkaline Phosphatase 457 U/L (39-117); Anion Gap 20 (12-20); Aspartate Amino Transferase 56 U/L (5-31); Bilirubin Direct 1.7 mg/dL (0.0-0.5); Bilirubin Total 2.2 mg/dL (0.0-1.0); Blood Urea Nitrogen 32 mg/dL (9-16); Calcium 8.2 mg/dL (8.4-10.2); Carbon Dioxide 21 mmol/L (22-29); Chloride 98 mmol/L (96-108); Creatinine Clr Calc Pharmacy 5.4; Estimated Glomerular Filt Rate 6; Glucose Random 92 mg/dL (60-115); Potassium 4.1 mmol/L (3.3-5.1); Sodium 135 mmol/L (135-145); Total Protein 6.1 g/dL (6.5-8.0)
[2022-02-05] MEDS: 0.9 % Sodium Chloride Flush 3 ML SYRINGE IVFLUSH ×2 (08:28→15:15)
[2022-02-05] MEDS: Sevelamer Carbonate Tablet 800 MG TABLET PO ×3 (08:28→20:22)
[2022-02-05] MEDS: Cholecalciferol (Vitamin D3) 25 MCG TABLET PO (08:31)
[2022-02-05] MEDS: Amiodarone HCL 200 MG TABLET 100 MG PO (08:31)
[2022-02-05] MEDS: carvediloL 6.25 MG TABLET PO ×2 (08:32→20:22)
--- NOTE | 2022-02-05 09:06 | PM.PNGS ---
Subjective Subjective Date of Service: 02/05/22 Interval history: Complains of back pain No significant abdominal pain No vomiting Physical Exam Vital Signs: Vital Signs: Last Vital Signs Temp 97.8 F 02/05/22 08:00 Pulse 65 02/05/22 08:00 Resp 20 02/05/22 08:00 BP 110/58 L 02/05/22 08:00 Pulse Ox 94 02/05/22 08:00 O2 Del Method 02/05/22 08:00 BMI result Body Mass Index 18.3 Const: General: comfortable and no acute distress Resp: Effort & Inspection: normal respiratory effort Cardio: Rate: regular rate GI: Other: No Solis's sign Palpation (GI): Soft to palpation, not firm and nontender Objective Data Active Medications Acetaminophen (Acetaminophen 325 Mg Tablet) 650 mg PO Q6H PRN PRN Reason: Pain, Mild (Pain Scale 1-3) Amiodarone HCl (Amiodarone Hcl 200 Mg Tablet) 100 mg PO DAILY [facility] Last Admin: 02/05/22 08:31 Dose: 100 mg Documented By: DANE Calcium Carbonate/Cholecalciferol (Calcium + Vitamin D 250 Mg Tablet) 250 mg PO BEDTIME [facility] Last Admin: 02/04/22 21:05 Dose: 250 mg Documented By: DONAL Carvedilol (Carvedilol 6.25 Mg Tablet) 6.25 mg PO BID [facility]; Protocol Last Admin: 02/05/22 08:32 Dose: 6.25 mg Documented By: DANE Hydromorphone HCl (Hydromorphone Hcl 0.5 Mg/0.5 Ml Syringe) 0.5 mg IVPUSH Q4H PRN; Protocol PRN Reason: Pain, Severe (Pain Scale 7-10) Last Admin: 02/05/22 05:24 Dose: 0.5 mg Documented By: FREDA Ceftriaxone Sodium 1 gm/ (Sodium Chloride) 50 mls @ 100 mls/hr IV Q24H [facility] Last Infusion: 02/04/22 13:41 Dose: 0 mls/hr Documented By: ODALYS Metronidazole (Flagyl) 500 mg in 100 mls @ 100 mls/hr IV Q8H [facility] Last Infusion: 02/05/22 05:55 Dose: 0 mls/hr Documented By: DONAL Melatonin (Melatonin 3 Mg Tablet) 3 mg PO BEDTIME PRN PRN Reason: Insomnia Omeprazole (Omeprazole 20 Mg Capsule.) 20 mg PO DAILY@0630 PRN PRN Reason: Acid Reflux Ondansetron HCl (Ondansetron Hcl 4 Mg/2 Ml Vial) 4 mg IVPUSH Q8H PRN PRN Reason: Nausea and Vomiting Last Admin: 02/05/22 07:01 Dose: 4 mg Documented By: DONAL Pharmacy Consult (Consult Rx Perform Med Rec) 1 each MISCELLANE ONCE PRN PRN Reason: Consult order Sevelamer Carbonate (Sevelamer Carbonate Tablet 800 Mg Tablet) 800 mg PO TID [facility] Last Admin: 02/05/22 08:28 Dose: 800 mg Documented By: DANE Sodium Chloride (0.9 % Sodium Chloride Flush 3 Ml Syringe) 3 ml IVFLUSH QSHIFT [facility] Last Admin: 02/05/22 08:28 Dose: 3 ml Documented By: DANE Vitamin D (Cholecalciferol (Vitamin D3) 25 Mcg Tablet) 25 mcg PO DAILY [facility] Last Admin: 02/05/22 08:31 Dose: 25 mcg Documented By: DANE Labs CBC & Chem 7: 02/05/22 06:53 02/05/22 06:53 Labs: Laboratory Results - last 24 hr 02/04/22 02/05/22 02/05/22 11:41 06:53 06:53 MCV 88.8 MCH 27.0 MCHC 30.4 L RDW 15.6 Plt Count 110 L MPV 8.6 L Immature Gran % (Auto) 0.5 H Neut % (Auto) 65.7 Lymph % (Auto) 19.6 L [place] % (Auto) 12.7 H Eos % (Auto) 1.3 Baso % (Auto) 0.2 Lymph # (Auto) 1.2 [place] # (Auto) 0.8 Eos # (Auto) 0.1 Baso # (Auto) 0.0 Abs Immat Gran (auto) 0.03 Absolute Neuts (auto) 4.1 Absolute Nucleated RBC 0.000 Nucleated RBC % (auto) 0.0 Anion Gap 20 Estim Creat Clear Calc 5.4 Estimated GFR 6 Random Glucose 92 Calcium 8.2 L Total Bilirubin 2.2 H Direct Bilirubin 1.7 H AST 56 H ALT 18 Alkaline Phosphatase 457 H Total Protein 6.1 L Albumin 2.8 L COVID-19 (MITZI) Negative COVID-19 Clin Com See Note Procedures Date of Service Date of Service: 02/05/22 Progress Note: A&P Assessment and plan (1) Elevated bilirubin: Status: Acute Assessment and Plan: Bilirubin level still rising No Solis's sign/ significant tenderness on the right upper quadrant No leukocytosis Would plan MRCP to rule out CBD obstruction Exam benign Hold off on Eliquis for now in case she will need invasive intervention Dialysis scheduled tomorrow Time Spent With Patient Time: Total time spent is greater than 50% in coordination of care (as documented) at patient's floor/unit and/or counseling patient: Quality Stroke Does the patient have a stroke diagnosis?: No VTE Prior VTE?: No VTE Risk Level:: Medical - moderate - high VTE Device Contraindication: N/A - Device Ordered VTE Drug Contraindication: Treatment Not Indicated
[2022-02-05] MEDS: cefTRIAXone sodium 1 GM in 0.9 % Sodium Chloride 50 ML IV (13:23)
--- NOTE | 2022-02-05 13:38 | HO.PM.IMPN ---
Subjective Subjective Date of Service: 02/05/22 Interval History: history obtained via insurance verification rep patient had right sided mid back pain at 03:00 took IV Dilaudid became nauseous but had good relief in pain, at present denies right upper quadrant pain no overnight fever chills, denies lightheadedness dizziness. Review of Systems Review of Systems: Yes all other systems are reviewed and are negative Physical Exam Vital Signs: Vital Signs: Last Vital Signs Temp 98.4 F 02/05/22 12:00 Pulse 71 02/05/22 12:00 Resp 20 02/05/22 12:00 BP 113/64 02/05/22 12:00 Pulse Ox 97 02/05/22 12:00 O2 Del Method 02/05/22 12:00 BMI result Body Mass Index 18.3 Const: Other: General awake alert x3,in no acute distress.? Neck no JVD. CVS? regular rate rhythm, Respiratory lungs clear to auscultation, no respiratory distress, no wheeze, no rhonchi. Gastrointestinal abdomen soft, Nontender, bowel sounds audible, no guarding , no rigidity. Extremities no edema. Neuro nonfocal , speech clear. Skin no rash psych appropriate affect Objective Data Active Medications Acetaminophen (Acetaminophen 325 Mg Tablet) 650 mg PO Q6H PRN PRN Reason: Pain, Mild (Pain Scale 1-3) Amiodarone HCl (Amiodarone Hcl 200 Mg Tablet) 100 mg PO DAILY [facility] Last Admin: 02/05/22 08:31 Dose: 100 mg Documented By: DANE Calcium Carbonate/Cholecalciferol (Calcium + Vitamin D 250 Mg Tablet) 250 mg PO BEDTIME [facility] Last Admin: 02/04/22 21:05 Dose: 250 mg Documented By: DONAL Carvedilol (Carvedilol 6.25 Mg Tablet) 6.25 mg PO BID [facility]; Protocol Last Admin: 02/05/22 08:32 Dose: 6.25 mg Documented By: DANE Ceftriaxone Sodium 1 gm/ (Sodium Chloride) 50 mls @ 100 mls/hr IV Q24H [facility] Last Admin: 02/05/22 13:23 Dose: 100 mls/hr Documented By: DANE Metronidazole (Flagyl) 500 mg in 100 mls @ 100 mls/hr IV Q8H [facility] Last Admin: 02/05/22 13:23 Dose: 100 mls/hr Documented By: DANE Melatonin (Melatonin 3 Mg Tablet) 3 mg PO BEDTIME PRN PRN Reason: Insomnia Omeprazole (Omeprazole 20 Mg Capsule.Dr) 20 mg PO DAILY@0630 PRN PRN Reason: Acid Reflux Ondansetron HCl (Ondansetron Hcl 4 Mg/2 Ml Vial) 4 mg IVPUSH Q8H PRN PRN Reason: Nausea and Vomiting Last Admin: 02/05/22 07:01 Dose: 4 mg Documented By: DONAL Oxycodone HCl (Oxycodone Hcl Immed Release 5 Mg Tablet) 2.5 mg PO Q6H PRN PRN Reason: Pain, Moderate (Pain Scale 4-6 Pharmacy Consult (Consult Rx Perform Med Rec) 1 each MISCELLANE ONCE PRN PRN Reason: Consult order Sevelamer Carbonate (Sevelamer Carbonate Tablet 800 Mg Tablet) 800 mg PO TID [facility] Last Admin: 02/05/22 08:28 Dose: 800 mg Documented By: DANE Sodium Chloride (0.9 % Sodium Chloride Flush 3 Ml Syringe) 3 ml IVFLUSH QSHIFT [facility] Last Admin: 02/05/22 08:28 Dose: 3 ml Documented By: DANE Vitamin D (Cholecalciferol (Vitamin D3) 25 Mcg Tablet) 25 mcg PO DAILY [facility] Last Admin: 02/05/22 08:31 Dose: 25 mcg Documented By: DANE Labs CBC & Chem 7: 02/05/22 06:53 02/05/22 06:53 Labs: Laboratory Results - last 24 hr 02/05/22 02/05/22 06:53 06:53 MCV 88.8 MCH 27.0 MCHC 30.4 L RDW 15.6 Plt Count 110 L MPV 8.6 L Immature Gran % (Auto) 0.5 H Neut % (Auto) 65.7 Lymph % (Auto) 19.6 L [place] % (Auto) 12.7 H Eos % (Auto) 1.3 Baso % (Auto) 0.2 Lymph # (Auto) 1.2 [place] # (Auto) 0.8 Eos # (Auto) 0.1 Baso # (Auto) 0.0 Abs Immat Gran (auto) 0.03 Absolute Neuts (auto) 4.1 Absolute Nucleated RBC 0.000 Nucleated RBC % (auto) 0.0 Anion Gap 20 Estim Creat Clear Calc 5.4 Estimated GFR 6 Random Glucose 92 Calcium 8.2 L Total Bilirubin 2.2 H Direct Bilirubin 1.7 H AST 56 H ALT 18 Alkaline Phosphatase 457 H Total Protein 6.1 L Albumin 2.8 L Assessment and Plan (1) Elevated bilirubin: Status: Acute (2) Acute calculous cholecystitis: Status: Acute (3) ESRD (end stage renal disease) on dialysis: Status: Acute Plan 71-year-old female with a past medical history of hypertension, hyperlipidemia, CAD, CHF status post AICD, paroxysmal AFib on Eliquis, history of ventricular tachycardia, ESRD on hemodialysis presented to the hospital with chief complaint of? neck, back pain and right upper quadrant abdominal discomfort, without associated fever chills cough or sputum production, an abdominal us showed colilithiasis with gallbladder wall thickening with adjacent inflammation concerning for cholecystitis ,? labs showed elevated LFTs acute cholecystitis (patient just discharged from [facility] yesterday after being treated with 5 days of IV antibiotics for acute cholecystitis at time of discharge patient had no abdominal pain , tolerated ?regular diet had normal LFTs) now have?elevated LFTs/ right midback pain/ abnormal abdominal ultrasound, normal pancreas recent CT abdomen showed normal common bile duct? ?no fevers, normal WBC,? worsening bilirubin, elevated alk phos case discussed with Dr. Romano he recommend to resume diet, obtain MRCP, will make her NPO at midnight, continue to hold Eliquis follow liver enzyme DC IV Dilaudid due to nausea, vomiting, will place on oxycodone as needed elevated lipase, no abdominal pain recent CT abdomen showed normal pancreas will repeat lipase ?chf diastolic CHF? no exacerbation, echo from last year showed EF 45-50%, no further workup warranted ??end-stage renal disease on hemodialysis? continue hemodialysis Sunday and Sunday consult? Nephrology ?history of paroxysmal atrial fibrillation continue amiodarone and hold Eliquis ?history of hypertension? continue Coreg, hold amlodipine and hydralazine? follow BP ?history of hyperlipidemia hold statins ?DVT prophylaxis with compression boots patient will need inpatient stay for elevated lfts, possible acute cholecystitis? requiring IV antibiotic and further imaging studies. Quality Stroke Does the patient have a stroke diagnosis?: No VTE Prior VTE?: No VTE Risk Level:: Medical - moderate - high VTE Device Contraindication: N/A - Device Ordered VTE Drug Contraindication: Treatment Not Indicated
--- NOTE | 2022-02-05 16:20 | MHC.CM.PN ---
PT REPORTS SHE LIVES WITH HER SON AND HER NIECE IS HER CERTIFIED PESTICIDE APPLICATOR DAILY SHE REPORTS BESIDES CERTIFIED PESTICIDE APPLICATOR HOURS SHE ALSO ATTENDS HD M-W- IN [place] PT REPORTS SHE IS COVID VACCINATED PT DOES NOT HAVE A HCP ON FILE, BLANK DOC AND INFO PROVIDED FOR HER CONSIDERATION PCP: CASEY GUTHRIE IMM DELIVERED DCP: [facility] FAM[facility] TO TRANSPORT
[2022-02-05] MEDS: Calcium + Vitamin D 250 MG TABLET PO (20:22)
[2022-02-06] MEDS: 0.9 % Sodium Chloride Flush 3 ML SYRINGE IVFLUSH ×4 (00:48→19:58)
[2022-02-06 03:10] VITALS: BP 111/58; PULSE 80; RESP 18; TEMP 36.3; O2SAT 96
[2022-02-06] MEDS: metroNIDAZOLE/NS 500 MG/100 ML PIGGYBACK 100 MG IV ×3 (03:56→19:57)
[2022-02-06 05:55] LABS: Hematocrit 32.6 % (37.0-47.0); Hemoglobin 9.7 g/dl (12.0-16.0); Mean Corpuscular HGB Conc 29.8 g/dl (31.0-35.0); Mean Corpuscular Hemoglobin 26.4 pg (27.0-33.0); Mean Corpuscular Volume 88.8 fL (80.0-98.0); Platelet Count 118 X10*3/uL (160-400); Red Blood Count 3.67 X10*6/uL (4.20-5.50); Red Cell Distribution Width 15.6 % (11.0-16.0); White Blood Count 4.1 X10*3/uL (4.8-10.8)
[2022-02-06 06:25] LABS: Alanine Aminotransferase 12 U/L (0-31); Albumin Level 2.6 g/dL (3.5-5.0); Alkaline Phosphatase 425 U/L (39-117); Aspartate Amino Transferase 30 U/L (5-31); Bilirubin Direct 0.7 mg/dL (0.0-0.5); Bilirubin Total 0.9 mg/dL (0.0-1.0); Total Protein 5.7 g/dL (6.5-8.0)
[2022-02-06 07:36] VITALS: BP 118/58; PULSE 65; RESP 20; TEMP 37.2; O2SAT 94
--- NOTE | 2022-02-06 08:01 | PM.PNGS ---
Subjective Subjective Date of Service: 02/07/22 Interval history: says she feels well tolerating diet yesterday denies abdominal pain slept well Physical Exam Vital Signs: Vital Signs: Last Vital Signs Temp 98.9 F 02/06/22 07:36 Pulse 65 02/06/22 07:36 Resp 20 02/06/22 07:36 BP 118/58 L 02/06/22 07:36 Pulse Ox 94 02/06/22 07:36 O2 Del Method 02/06/22 07:36 BMI result Body Mass Index 18.3 Const: General: comfortable and no acute distress Resp: Effort & Inspection: normal respiratory effort Cardio: Rate: regular rate GI: Palpation (GI): Soft to palpation, not firm and nontender Objective Data Active Medications Acetaminophen (Acetaminophen 325 Mg Tablet) 650 mg PO Q6H PRN PRN Reason: Pain, Mild (Pain Scale 1-3) Amiodarone HCl (Amiodarone Hcl 200 Mg Tablet) 100 mg PO DAILY [facility] Last Admin: 02/05/22 08:31 Dose: 100 mg Documented By: DANE Calcium Carbonate/Cholecalciferol (Calcium + Vitamin D 250 Mg Tablet) 250 mg PO BEDTIME [facility] Last Admin: 02/05/22 20:22 Dose: 250 mg Documented By: ADRIANA Carvedilol (Carvedilol 6.25 Mg Tablet) 6.25 mg PO BID [facility]; Protocol Last Admin: 02/05/22 20:22 Dose: 6.25 mg Documented By: ADRIANA Ceftriaxone Sodium 1 gm/ (Sodium Chloride) 50 mls @ 100 mls/hr IV Q24H [facility] Last Infusion: 02/05/22 14:08 Dose: 0 mls/hr Documented By: DANE Metronidazole (Flagyl) 500 mg in 100 mls @ 100 mls/hr IV Q8H [facility] Last Infusion: 02/06/22 05:07 Dose: 0 mls/hr Documented By: CHASTITY Melatonin (Melatonin 3 Mg Tablet) 3 mg PO BEDTIME PRN PRN Reason: Insomnia Omeprazole (Omeprazole 20 Mg Capsule.Dr) 20 mg PO DAILY@0630 PRN PRN Reason: Acid Reflux Ondansetron HCl (Ondansetron Hcl 4 Mg/2 Ml Vial) 4 mg IVPUSH Q8H PRN PRN Reason: Nausea and Vomiting Last Admin: 02/05/22 07:01 Dose: 4 mg Documented By: DONAL Oxycodone HCl (Oxycodone Hcl Immed Release 5 Mg Tablet) 2.5 mg PO Q6H PRN PRN Reason: Pain, Moderate (Pain Scale 4-6 Pharmacy Consult (Consult Rx Perform Med Rec) 1 each MISCELLANE ONCE PRN PRN Reason: Consult order Sevelamer Carbonate (Sevelamer Carbonate Tablet 800 Mg Tablet) 800 mg PO TID [facility] Last Admin: 02/05/22 20:22 Dose: 800 mg Documented By: ADRIANA Sodium Chloride (0.9 % Sodium Chloride Flush 3 Ml Syringe) 3 ml IVFLUSH QSHIFT [facility] Last Admin: 02/06/22 00:48 Dose: 3 ml Documented By: CHASTITY Vitamin D (Cholecalciferol (Vitamin D3) 25 Mcg Tablet) 25 mcg PO DAILY [facility] Last Admin: 02/05/22 08:31 Dose: 25 mcg Documented By: DANE Labs CBC & Chem 7: 02/07/22 05:47 02/05/22 06:53 Labs: Laboratory Results - last 24 hr 02/05/22 02/06/22 02/06/22 06:53 05:22 05:22 MCV 88.8 MCH 26.4 L MCHC 29.8 L RDW 15.6 Plt Count 118 L MPV 9.0 L Absolute Nucleated RBC 0.000 Nucleated RBC % (auto) 0.0 Anion Gap 20 Estim Creat Clear Calc 5.4 Estimated GFR 6 Random Glucose 92 Calcium 8.2 L Total Bilirubin 2.2 H 0.9 Direct Bilirubin 1.7 H 0.7 H AST 56 H 30 D ALT 18 12 Alkaline Phosphatase 457 H 425 H Total Protein 6.1 L 5.7 L Albumin 2.8 L 2.6 L Procedures Date of Service Date of Service: 02/06/22 Progress Note: A&P Assessment and plan (1) Elevated bilirubin: Status: Acute Assessment and Plan: denies abdominal pain bilirubin has normalized may have passed stone? MRCP looks well no leukocytosis Time Spent With Patient Time: Total time spent is greater than 50% in coordination of care (as documented) at patient's floor/unit and/or counseling patient: Quality Stroke Does the patient have a stroke diagnosis?: No VTE Prior VTE?: No VTE Risk Level:: Medical - moderate - high VTE Device Contraindication: N/A - Device Ordered VTE Drug Contraindication: Treatment Not Indicated
[2022-02-06] MEDS: Amiodarone HCL 200 MG TABLET 100 MG PO (08:50)
[2022-02-06] MEDS: carvediloL 6.25 MG TABLET PO ×2 (08:50→19:57)
[2022-02-06] MEDS: Sevelamer Carbonate Tablet 800 MG TABLET PO ×3 (08:50→19:57)
[2022-02-06] MEDS: Cholecalciferol (Vitamin D3) 25 MCG TABLET PO (08:50)
[2022-02-06 09:05] LABS: Lipase 129 U/L (8-78)
--- NOTE | 2022-02-06 13:38 | HO.PM.IMPN ---
Subjective Subjective Date of Service: 02/06/22 Interval History: This history was taken in Croatian from the patient. Abd pain resolved No nausea/vomiting HD today Review of Systems Review of Systems: Yes all other systems are reviewed and are negative Physical Exam Vital Signs: Vital Signs: Last Vital Signs Temp 98.9 F 02/06/22 07:36 Pulse 65 02/06/22 07:36 Resp 20 02/06/22 07:36 BP 118/58 L 02/06/22 07:36 Pulse Ox 94 02/06/22 07:36 O2 Del Method 02/06/22 07:36 BMI result Body Mass Index 18.3 Gen: in no acute distress HEENT: sclera anicteric, moist mucus membranes Neck: supple Lungs: clear to auscultation bilaterally Heart: regular rate and rhythm, no murmurs Abd: soft, non-tender, non-distended Ext: no edema Skin: warm/well-perfused Neuro: alert and oriented x3, no focal findings Psych: appropriate affect Objective Data Active Medications Acetaminophen (Acetaminophen 325 Mg Tablet) 650 mg PO Q6H PRN PRN Reason: Pain, Mild (Pain Scale 1-3) Amiodarone HCl (Amiodarone Hcl 200 Mg Tablet) 100 mg PO DAILY [facility] Last Admin: 02/06/22 08:50 Dose: 100 mg Documented By: PARVIN Calcium Carbonate/Cholecalciferol (Calcium + Vitamin D 250 Mg Tablet) 250 mg PO BEDTIME [facility] Last Admin: 02/05/22 20:22 Dose: 250 mg Documented By: ADRIANA Carvedilol (Carvedilol 6.25 Mg Tablet) 6.25 mg PO BID [facility]; Protocol Last Admin: 02/06/22 08:50 Dose: 6.25 mg Documented By: PARVIN Ceftriaxone Sodium 1 gm/ (Sodium Chloride) 50 mls @ 100 mls/hr IV Q24H [facility] Last Infusion: 02/05/22 14:08 Dose: 0 mls/hr Documented By: DANE Metronidazole (Flagyl) 500 mg in 100 mls @ 100 mls/hr IV Q8H [facility] Last Infusion: 02/06/22 05:07 Dose: 0 mls/hr Documented By: CHASTITY Melatonin (Melatonin 3 Mg Tablet) 3 mg PO BEDTIME PRN PRN Reason: Insomnia Omeprazole (Omeprazole 20 Mg Capsule.Dr) 20 mg PO DAILY@0630 PRN PRN Reason: Acid Reflux Ondansetron HCl (Ondansetron Hcl 4 Mg/2 Ml Vial) 4 mg IVPUSH Q8H PRN PRN Reason: Nausea and Vomiting Last Admin: 02/05/22 07:01 Dose: 4 mg Documented By: DONAL Oxycodone HCl (Oxycodone Hcl Immed Release 5 Mg Tablet) 2.5 mg PO Q6H PRN PRN Reason: Pain, Moderate (Pain Scale 4-6 Pharmacy Consult (Consult Rx Perform Med Rec) 1 each MISCELLANE ONCE PRN PRN Reason: Consult order Sevelamer Carbonate (Sevelamer Carbonate Tablet 800 Mg Tablet) 800 mg PO TID [facility] Last Admin: 02/06/22 08:50 Dose: 800 mg Documented By: PARVIN Sodium Chloride (0.9 % Sodium Chloride Flush 3 Ml Syringe) 3 ml IVFLUSH QSHIFT [facility] Last Admin: 02/06/22 08:52 Dose: 3 ml Documented By: PARVIN Vitamin D (Cholecalciferol (Vitamin D3) 25 Mcg Tablet) 25 mcg PO DAILY [facility] Last Admin: 02/06/22 08:50 Dose: 25 mcg Documented By: PARVIN Labs CBC & Chem 7: 02/06/22 05:22 02/05/22 06:53 Labs: Laboratory Results - last 24 hr 02/06/22 02/06/22 05:22 05:22 MCV 88.8 MCH 26.4 L MCHC 29.8 L RDW 15.6 Plt Count 118 L MPV 9.0 L Absolute Nucleated RBC 0.000 Nucleated RBC % (auto) 0.0 Total Bilirubin 0.9 Direct Bilirubin 0.7 H AST 30 D ALT 12 Alkaline Phosphatase 425 H C-Reactive Protein 9.10 H Total Protein 5.7 L Albumin 2.6 L Lipase 129 H Assessment and Plan (1) Elevated bilirubin: Status: Acute (2) Acute calculous cholecystitis: Status: Acute (3) ESRD (end stage renal disease) on dialysis: Status: Acute Plan hospital d#3 71yo F with HTN, HLD, CAD, CHF s/p AICD, pAF on apixaban, hx VT, ESRD on HD p/w neck/back/RUQ pain admitted for concern of cholecystitis after recent admission for medically managed cholecystitis # acute cholecystitis - Gen Surg consulted, MRCP ordered- pending, apixaban held, Tbili normalized, prn oxycodone, d#3 of ceftriaxone/metronidazole # diastolic CHF, chronic - does not appear volume-overloaded; continue carvedilol # ESRD - resume home HD - continue sevelamer # pAF - continue amiodarone - hold apixaban # HTN - continue carvedilol, holding amlodipine + hydralazine # VTE ppx: SCDs In my clinical judgment, the patient requires continued hospitalization for the following reasons: possible cholecystitis Quality Stroke Does the patient have a stroke diagnosis?: No VTE Prior VTE?: No VTE Risk Level:: Medical - moderate - high VTE Device Contraindication: N/A - Device Ordered VTE Drug Contraindication: Treatment Not Indicated
[2022-02-06] MEDS: cefTRIAXone sodium 1 GM in 0.9 % Sodium Chloride 50 ML IV (15:05)
[2022-02-06 15:26] VITALS: BP 116/56; PULSE 65; RESP 20; TEMP 37.3; O2SAT 97
[2022-02-06 19:52] VITALS: BP 106/59; PULSE 65; RESP 20; TEMP 37.2; O2SAT 94
[2022-02-06] MEDS: Calcium + Vitamin D 250 MG TABLET PO (19:58)
--- NOTE | 2022-02-06 23:51 | CONS_ITS ---
DATE OF SERVICE: 02/06/2022 I saw the patient today. HISTORY OF PRESENT ILLNESS: I was asked to see patient to assist in evaluation and management of patient's dialysis needs. HISTORY OF PRESENT ILLNESS: The patient is a 71-year-old ESRD patient, who was just in the hospital and was discharged after treatment for acute cholecystitis. She now re-presents to the hospital again with abdominal pain. She is noted to have some abnormal liver function tests. She is being admitted for further management of acute cholecystitis and possibly needing surgery this hospitalization. She is normally dialyzed Sunday, Sunday, and Sunday. PAST MEDICAL HISTORY: Notable for ESRD, dialyzed Sunday, Sunday, Sunday; coronary artery disease; hypertension; and hyperlipidemia. She has an AICD in place. Ischemic cardiomyopathy and recent hospitalization for acute cholecystitis. MEDICATIONS: On admission are noted in the admitting notes. ALLERGIES: SHE HAS ALLERGIES NOTED IN THE EHR. CURRENT MEDICATIONS: Noted in the MAR. SOCIAL HISTORY: She is a nonsmoker, nondrinker. No illicit drug use. FAMILY HISTORY: Noncontributory. REVIEW OF SYSTEMS: As noted above. PHYSICAL EXAMINATION: VITAL SIGNS: Blood pressure of 120/60 with a heart rate in the 60s. HEAD: Atraumatic, normocephalic. NECK: Supple. Mucous membranes moist. LUNGS: Breath sounds bilaterally. CARDIAC: Regular rate and rhythm. ABDOMEN: Tender in right upper quadrant. EXTREMITIES: Show no edema. LABORATORY DATA: Hemoglobin 9.7, hematocrit 32.6, and white blood cell count 4.1. Sodium 135, potassium 4.1, chloride 98, bicarb 21, alkaline phosphatase 425, albumin 2.6, and bilirubin was as high as 2.2, is down to 0.9 today. IMPRESSION: END-STAGE RENAL DISEASE PATIENT RE-ADMITTED TO THE HOSPITAL WITH ACUTE CHOLECYSTITIS. 1. End-stage renal disease. We will dialyze her today and keep on Sunday, Sunday, Sunday schedule. 2. Acute cholecystitis. She will be evaluated by Surgery to see whether she is to have intervention or whether she can just be managed by antibiotics. 3. The patient is currently on dialysis, tolerating it well. We will continue on routine dialysis as ordered. 4. We will follow the patient with the team. MD SHEFALI Pablo/ANDREA / [phone]
[2022-02-07] VITALS (7 sets, daily range): BP systolic 101–123; BP diastolic 51–59; PULSE 56–63; RESP 15–18; TEMP 36.7–36.9; O2SAT 95–99
[2022-02-07] MEDS: metroNIDAZOLE/NS 500 MG/100 ML PIGGYBACK 100 MG IV ×3 (04:20→21:13)
[2022-02-07 06:20] LABS: Hematocrit 34.3 % (37.0-47.0); Hemoglobin 10.3 g/dl (12.0-16.0); Mean Corpuscular Hemoglobin 26.8 pg (27.0-33.0); Mean Corpuscular Volume 89.3 fL (80.0-98.0); Mean Platelet Volume 8.9 fL (9.4-12.3); Platelet Count 136 X10*3/uL (160-400); Red Blood Count 3.84 X10*6/uL (4.20-5.50); Red Cell Distribution Width 15.7 % (11.0-16.0); White Blood Count 4.2 X10*3/uL (4.8-10.8)
[2022-02-07 06:35] LABS: Alanine Aminotransferase 10 U/L (0-31); Albumin Level 2.8 g/dL (3.5-5.0); Alkaline Phosphatase 426 U/L (39-117); Aspartate Amino Transferase 21 U/L (5-31); Bilirubin Direct 0.4 mg/dL (0.0-0.5); Bilirubin Total 0.4 mg/dL (0.0-1.0); Total Protein 6.3 g/dL (6.5-8.0)
[2022-02-07] MEDS: carvediloL 6.25 MG TABLET PO ×2 (10:16→21:13)
[2022-02-07] MEDS: Amiodarone HCL 200 MG TABLET 100 MG PO (10:16)
[2022-02-07] MEDS: 0.9 % Sodium Chloride Flush 3 ML SYRINGE IVFLUSH ×3 (10:17→21:13)
[2022-02-07] MEDS: Cholecalciferol (Vitamin D3) 25 MCG TABLET PO (10:17)
[2022-02-07] MEDS: Sevelamer Carbonate Tablet 800 MG TABLET PO ×3 (10:17→21:13)
[2022-02-07] MEDS: cefTRIAXone sodium 1 GM in 0.9 % Sodium Chloride 50 ML IV (12:29)
--- NOTE | 2022-02-07 14:02 | P.PNGS_ITS ---
Subjective Subjective Date of Service: 02/10/22 Interval history: Says she feels well denies abdominal pain tolerating diet well no nausea or vomiting Physical Exam Vital Signs: Vital Signs: Last Vital Signs Temp 98.0 F 02/07/22 11:32 Pulse 60 02/07/22 11:32 Resp 18 02/07/22 11:32 BP 113/58 L 02/07/22 11:32 Pulse Ox 99 02/07/22 11:32 O2 Del Method 02/07/22 11:32 BMI result Body Mass Index 18.3 Const: Other: sitting up on recliner, having a meal General: comfortable and no acute distress Resp: Effort & Inspection: normal respiratory effort Cardio: Rate: regular rate GI: Other: no Solis's sign Palpation (GI): Soft to palpation, not firm and nontender Objective Data Active Medications Acetaminophen (Acetaminophen 325 Mg Tablet) 650 mg PO Q6H PRN PRN Reason: Pain, Mild (Pain Scale 1-3) Amiodarone HCl (Amiodarone Hcl 200 Mg Tablet) 100 mg PO DAILY [facility] Last Admin: 02/07/22 10:16 Dose: 100 mg Documented By: PARVIN Calcium Carbonate/Cholecalciferol (Calcium + Vitamin D 250 Mg Tablet) 250 mg PO BEDTIME [facility] Last Admin: 02/06/22 19:58 Dose: 250 mg Documented By: CHEN Carvedilol (Carvedilol 6.25 Mg Tablet) 6.25 mg PO BID [facility]; Protocol Last Admin: 02/07/22 10:16 Dose: 6.25 mg Documented By: PARVIN Ceftriaxone Sodium 1 gm/ (Sodium Chloride) 50 mls @ 100 mls/hr IV Q24H [facility] Last Infusion: 02/07/22 13:01 Dose: 0 mls/hr Documented By: SALINAS Metronidazole (Flagyl) 500 mg in 100 mls @ 100 mls/hr IV Q8H [facility] Last Admin: 02/07/22 13:07 Dose: 100 mls/hr Documented By: SALINAS Melatonin (Melatonin 3 Mg Tablet) 3 mg PO BEDTIME PRN PRN Reason: Insomnia Omeprazole (Omeprazole 20 Mg Capsule.Dr) 20 mg PO DAILY@0630 PRN PRN Reason: Acid Reflux Ondansetron HCl (Ondansetron Hcl 4 Mg/2 Ml Vial) 4 mg IVPUSH Q8H PRN PRN Reason: Nausea and Vomiting Last Admin: 02/05/22 07:01 Dose: 4 mg Documented By: DONAL Oxycodone HCl (Oxycodone Hcl Immed Release 5 Mg Tablet) 2.5 mg PO Q6H PRN PRN Reason: Pain, Moderate (Pain Scale 4-6 Pharmacy Consult (Consult Rx Perform Med Rec) 1 each MISCELLANE ONCE PRN PRN Reason: Consult order Sevelamer Carbonate (Sevelamer Carbonate Tablet 800 Mg Tablet) 800 mg PO TID [facility] Last Admin: 02/07/22 10:17 Dose: 800 mg Documented By: PARVIN Sodium Chloride (0.9 % Sodium Chloride Flush 3 Ml Syringe) 3 ml IVFLUSH QSHIFT [facility] Last Admin: 02/07/22 10:17 Dose: 3 ml Documented By: PARVIN Vitamin D (Cholecalciferol (Vitamin D3) 25 Mcg Tablet) 25 mcg PO DAILY [facility] Last Admin: 02/07/22 10:17 Dose: 25 mcg Documented By: PARVIN Labs CBC & Chem 7: 02/08/22 08:10 02/05/22 06:53 Labs: Laboratory Results - last 24 hr 02/07/22 02/07/22 05:47 05:47 MCV 89.3 MCH 26.8 L MCHC 30.0 L RDW 15.7 Plt Count 136 L MPV 8.9 L Absolute Nucleated RBC 0.000 Nucleated RBC % (auto) 0.0 Total Bilirubin 0.4 Direct Bilirubin 0.4 AST 21 ALT 10 Alkaline Phosphatase 426 H Total Protein 6.3 L Albumin 2.8 L Procedures Date of Service Date of Service: 02/07/22 Progress Note: A&P Assessment and plan (1) Elevated bilirubin: Status: Acute Assessment and Plan: bilirubin back to normal no abdominal pain no tenderness tolerating diet well await MRCP likely to have passed a stone she does state that she would like to avoid any surgery on her abdomen at this time Time Spent With Patient Time: Total time spent is greater than 50% in coordination of care (as documented) at patient's floor/unit and/or counseling patient: Quality Stroke Does the patient have a stroke diagnosis?: No VTE Prior VTE?: No VTE Risk Level:: Medical - moderate - high VTE Device Contraindication: N/A - Device Ordered VTE Drug Contraindication: Treatment Not Indicated
--- NOTE | 2022-02-07 14:56 | P.PNIM_ITS ---
Subjective Subjective Date of Service: 02/07/22 Interval History: This history was taken in Turkmen from the patient. No abd pain No N/V Review of Systems Review of Systems: Yes all other systems are reviewed and are negative Physical Exam Vital Signs: Vital Signs: Last Vital Signs Temp 98.0 F 02/07/22 11:32 Pulse 60 02/07/22 11:32 Resp 18 02/07/22 11:32 BP 113/58 L 02/07/22 11:32 Pulse Ox 99 02/07/22 11:32 O2 Del Method 02/07/22 11:32 BMI result Body Mass Index 18.3 Gen: in no acute distress HEENT: sclera anicteric, moist mucus membranes Neck: supple Lungs: clear to auscultation bilaterally Heart: regular rate and rhythm, no murmurs Abd: soft, non-tender, non-distended Ext: no edema Skin: warm/well-perfused Neuro: alert and oriented x3, no focal findings Psych: appropriate affect Objective Data Active Medications Acetaminophen (Acetaminophen 325 Mg Tablet) 650 mg PO Q6H PRN PRN Reason: Pain, Mild (Pain Scale 1-3) Amiodarone HCl (Amiodarone Hcl 200 Mg Tablet) 100 mg PO DAILY [facility] Last Admin: 02/07/22 10:16 Dose: 100 mg Documented By: PARVIN Calcium Carbonate/Cholecalciferol (Calcium + Vitamin D 250 Mg Tablet) 250 mg PO BEDTIME [facility] Last Admin: 02/06/22 19:58 Dose: 250 mg Documented By: CHEN Carvedilol (Carvedilol 6.25 Mg Tablet) 6.25 mg PO BID [facility]; Protocol Last Admin: 02/07/22 10:16 Dose: 6.25 mg Documented By: PARVIN Ceftriaxone Sodium 1 gm/ (Sodium Chloride) 50 mls @ 100 mls/hr IV Q24H [facility] Last Infusion: 02/07/22 13:01 Dose: 0 mls/hr Documented By: SALINAS Metronidazole (Flagyl) 500 mg in 100 mls @ 100 mls/hr IV Q8H [facility] Last Infusion: 02/07/22 14:15 Dose: 0 mls/hr Documented By: SALINAS Melatonin (Melatonin 3 Mg Tablet) 3 mg PO BEDTIME PRN PRN Reason: Insomnia Omeprazole (Omeprazole 20 Mg Capsule.Dr) 20 mg PO DAILY@0630 PRN PRN Reason: Acid Reflux Ondansetron HCl (Ondansetron Hcl 4 Mg/2 Ml Vial) 4 mg IVPUSH Q8H PRN PRN Reason: Nausea and Vomiting Last Admin: 02/05/22 07:01 Dose: 4 mg Documented By: DONAL Oxycodone HCl (Oxycodone Hcl Immed Release 5 Mg Tablet) 2.5 mg PO Q6H PRN PRN Reason: Pain, Moderate (Pain Scale 4-6 Pharmacy Consult (Consult Rx Perform Med Rec) 1 each MISCELLANE ONCE PRN PRN Reason: Consult order Sevelamer Carbonate (Sevelamer Carbonate Tablet 800 Mg Tablet) 800 mg PO TID [facility] Last Admin: 02/07/22 10:17 Dose: 800 mg Documented By: PARVIN Sodium Chloride (0.9 % Sodium Chloride Flush 3 Ml Syringe) 3 ml IVFLUSH QSHIFT [facility] Last Admin: 02/07/22 10:17 Dose: 3 ml Documented By: PARVIN Vitamin D (Cholecalciferol (Vitamin D3) 25 Mcg Tablet) 25 mcg PO DAILY [facility] Last Admin: 02/07/22 10:17 Dose: 25 mcg Documented By: PARVIN Labs CBC & Chem 7: 02/07/22 05:47 02/05/22 06:53 Labs: Laboratory Results - last 24 hr 02/07/22 02/07/22 05:47 05:47 MCV 89.3 MCH 26.8 L MCHC 30.0 L RDW 15.7 Plt Count 136 L MPV 8.9 L Absolute Nucleated RBC 0.000 Nucleated RBC % (auto) 0.0 Total Bilirubin 0.4 Direct Bilirubin 0.4 AST 21 ALT 10 Alkaline Phosphatase 426 H Total Protein 6.3 L Albumin 2.8 L Assessment and Plan (1) Elevated bilirubin: Status: Acute (2) Acute calculous cholecystitis: Status: Acute (3) ESRD (end stage renal disease) on dialysis: Status: Acute Plan hospital d#4 71yo F with HTN, HLD, CAD, CHF s/p AICD, pAF on apixaban, hx VT, ESRD on HD p/w neck/back/RUQ pain admitted for concern of cholecystitis after recent admission for medically managed cholecystitis # acute cholecystitis - Gen Surg consulted, MRCP pending, apixaban held, Tbili normalized, prn oxycodone, d#4 of ceftriaxone/metronidazole # diastolic CHF, chronic - does not appear volume-overloaded; continue carvedilol # ESRD - resume home HD MWF - continue sevelamer # pAF - continue amiodarone - hold apixaban # HTN - continue carvedilol, holding amlodipine + hydralazine # VTE ppx: SCDs In my clinical judgment, the patient requires continued hospitalization for the following reasons: IV ABX Quality Stroke Does the patient have a stroke diagnosis?: No VTE Prior VTE?: No VTE Risk Level:: Medical - moderate - high VTE Device Contraindication: N/A - Device Ordered VTE Drug Contraindication: Treatment Not Indicated
[2022-02-07] MEDS: Calcium + Vitamin D 250 MG TABLET PO (21:13)
[2022-02-08 03:36] VITALS: BP 119/57; PULSE 62; RESP 14; TEMP 36.9; O2SAT 94
[2022-02-08] MEDS: metroNIDAZOLE/NS 500 MG/100 ML PIGGYBACK 100 MG IV (03:37)
[2022-02-08 07:33] VITALS: BP 131/64; PULSE 64; RESP 18; TEMP 36.9; O2SAT 97
[2022-02-08 08:24] LABS: Hemoglobin 11.2 g/dl (12.0-16.0); Mean Corpuscular HGB Conc 30.3 g/dl (31.0-35.0); Mean Corpuscular Hemoglobin 26.9 pg (27.0-33.0); Mean Corpuscular Volume 88.9 fL (80.0-98.0); Mean Platelet Volume 8.8 fL (9.4-12.3); Platelet Count 149 X10*3/uL (160-400); Red Blood Count 4.16 X10*6/uL (4.20-5.50); Red Cell Distribution Width 15.9 % (11.0-16.0); White Blood Count 4.9 X10*3/uL (4.8-10.8)
[2022-02-08 08:37] LABS: C Reactive Protein 4.12 mg/dL (< or = 0.50); Iron 51 mcg/dL (30-160); Percent Iron Saturation 38 % (15-50); Total Iron Binding Capacity 135 mcg/dL (228-428); Unsaturated Iron Binding 84 ug/dL
[2022-02-08 09:45] LABS: Ferritin 2274 ng/mL (10-250)
--- NOTE | 2022-02-08 10:00 | PM.PNNEP ---
Subjective Subjective Date of Service: 02/08/22 Interval history: Seen and examined, currently on HD events noted nop abd pain this am Physical Exam Vital Signs: Vital Signs: Last Vital Signs Temp 98.5 F 02/08/22 07:33 Pulse 64 02/08/22 07:33 Resp 18 02/08/22 07:33 BP 131/64 02/08/22 07:33 Pulse Ox 97 02/08/22 07:33 O2 Del Method 02/08/22 07:33 BMI result Body Mass Index 18.3 Const: Other: sitting up on recliner, having a meal General: comfortable and no acute distress Orientation/consciousness: patient oriented x3 Neck: Neck: Yes no lymphadenopathy Resp: Effort & Inspection: normal respiratory effort Auscultation: clear to auscultation bilaterally Cardio: Rate: regular rate Rhythm: regular rhythm GI: Other: no Solis's sign Palpation (GI): Soft to palpation, not firm, nontender and no guarding Neuro: General: patient oriented x3 Objective Data Labs CBC & Chem 7: 02/08/22 08:10 02/05/22 06:53 Labs: Laboratory Results - last 24 hr 02/08/22 02/08/22 08:10 08:10 WBC 4.9 RBC 4.16 L Hgb 11.2 L Hct 37.0 MCV 88.9 MCH 26.9 L MCHC 30.3 L RDW 15.9 Plt Count 149 L MPV 8.8 L Absolute Nucleated RBC 0.000 Nucleated RBC % (auto) 0.0 Iron 51 TIBC 135 L % Saturation 38 Unsat Iron Binding 84 Ferritin 2274 H C-Reactive Protein 4.12 H Procedures Date of Service Date of Service: 02/08/22 Assessment & Plan Assessment and plan (1) Elevated bilirubin: Status: Acute (2) Acute calculous cholecystitis: Status: Acute (3) ESRD (end stage renal disease) on dialysis: Status: Acute Plan 1. ESRD: mwf 2. Acute Linda: being eval by surg 3. CHF: compensated 4. H/O HTN: meds on hold for now REC: cont HD 3x/wk; ABx and w/u acute linda as noted Time Spent With Patient Time: Total time spent is greater than 50% in coordination of care (as documented) at patient's floor/unit and/or counseling patient: Progress Note: Quality Stroke Does the patient have a stroke diagnosis?: No
--- NOTE | 2022-02-08 14:19 | HO.PM.IMPN ---
Subjective Subjective Date of Service: 02/08/22 Interval History: This history was taken in Syriac from the patient. No RUQ pain No N/V HD today Review of Systems Review of Systems: Yes all other systems are reviewed and are negative Physical Exam Vital Signs: Vital Signs: Last Vital Signs Temp 98.5 F 02/08/22 07:33 Pulse 64 02/08/22 07:33 Resp 18 02/08/22 07:33 BP 131/64 02/08/22 07:33 Pulse Ox 97 02/08/22 07:33 O2 Del Method 02/08/22 07:33 BMI result Body Mass Index 18.3 Gen: in no acute distress HEENT: sclera anicteric, moist mucus membranes Neck: supple Lungs: clear to auscultation bilaterally Heart: regular rate and rhythm, no murmurs Abd: soft, non-tender, non-distended Ext: no edema Skin: warm/well-perfused Neuro: alert and oriented x3, no focal findings Psych: appropriate affect Objective Data Active Medications Acetaminophen (Acetaminophen 325 Mg Tablet) 650 mg PO Q6H PRN PRN Reason: Pain, Mild (Pain Scale 1-3) Amiodarone HCl (Amiodarone Hcl 200 Mg Tablet) 100 mg PO DAILY [facility] Last Admin: 02/08/22 13:39 Dose: Not Given Documented By: SALINAS Non-Admin Reason: pt off unit Calcium Carbonate/Cholecalciferol (Calcium + Vitamin D 250 Mg Tablet) 250 mg PO BEDTIME [facility] Last Admin: 02/07/22 21:13 Dose: 250 mg Documented By: BOOKER Carvedilol (Carvedilol 6.25 Mg Tablet) 6.25 mg PO BID [facility]; Protocol Last Admin: 02/08/22 13:39 Dose: Not Given Documented By: SALINAS Non-Admin Reason: pt off unit Ceftriaxone Sodium 1 gm/ (Sodium Chloride) 50 mls @ 100 mls/hr IV Q24H [facility] Last Admin: 02/08/22 13:39 Dose: Not Given Documented By: SALINAS Non-Admin Reason: pt off unit Metronidazole (Flagyl) 500 mg in 100 mls @ 100 mls/hr IV Q8H [facility] Last Admin: 02/08/22 13:40 Dose: Not Given Documented By: SALINAS Non-Admin Reason: pt off unit Melatonin (Melatonin 3 Mg Tablet) 3 mg PO BEDTIME PRN PRN Reason: Insomnia Omeprazole (Omeprazole 20 Mg Capsule.Dr) 20 mg PO DAILY@0630 PRN PRN Reason: Acid Reflux Ondansetron HCl (Ondansetron Hcl 4 Mg/2 Ml Vial) 4 mg IVPUSH Q8H PRN PRN Reason: Nausea and Vomiting Last Admin: 02/05/22 07:01 Dose: 4 mg Documented By: DONAL Oxycodone HCl (Oxycodone Hcl Immed Release 5 Mg Tablet) 2.5 mg PO Q6H PRN PRN Reason: Pain, Moderate (Pain Scale 4-6 Pharmacy Consult (Consult Rx Perform Med Rec) 1 each MISCELLANE ONCE PRN PRN Reason: Consult order Sevelamer Carbonate (Sevelamer Carbonate Tablet 800 Mg Tablet) 800 mg PO TID [facility] Last Admin: 02/08/22 13:39 Dose: Not Given Documented By: SALINAS Non-Admin Reason: pt off unit Sodium Chloride (0.9 % Sodium Chloride Flush 3 Ml Syringe) 3 ml IVFLUSH QSHIFT [facility] Last Admin: 02/08/22 13:38 Dose: Not Given Documented By: SALINAS Non-Admin Reason: pt off unit Vitamin D (Cholecalciferol (Vitamin D3) 25 Mcg Tablet) 25 mcg PO DAILY [facility] Last Admin: 02/08/22 13:39 Dose: Not Given Documented By: SALINAS Non-Admin Reason: pt off unit Labs CBC & Chem 7: 02/08/22 08:10 02/05/22 06:53 Labs: Laboratory Results - last 24 hr 02/08/22 02/08/22 08:10 08:10 MCV 88.9 MCH 26.9 L MCHC 30.3 L RDW 15.9 Plt Count 149 L MPV 8.8 L Absolute Nucleated RBC 0.000 Nucleated RBC % (auto) 0.0 Iron 51 TIBC 135 L % Saturation 38 Unsat Iron Binding 84 Ferritin 2274 H C-Reactive Protein 4.12 H ITS Impressions Abdomen Ultrasound 02/04/22 07:55 IMPRESSION: Acute cholecystitis with sludge and small stones in the gallbladder. Gallbladder wall thickness has increased from 01/30/2022 exam. Cholangiopancreatography MRI 02/07/22 10:03 IMPRESSION: Abnormal appearance to the gallbladder in keeping with suspected acute cholecystitis from prior ultrasound examinations. There is periportal edema presumably related to the suspected acute cholecystitis. No biliary ductal dilatation. No choledocholithiasis. Abnormal signal in the liver and spleen suggesting abnormal iron deposition. Assessment and Plan (1) Elevated bilirubin: Status: Acute (2) Acute calculous cholecystitis: Status: Acute (3) ESRD (end stage renal disease) on dialysis: Status: Acute Plan hospital d#5 71yo F with HTN, HLD, CAD, CHF, pAF on apixaban, hx VT and now s/p AICD, ESRD on HD p/w neck/back/RUQ pain admitted for concern of cholecystitis after recent admission for medically managed cholecystitis # acute cholecystitis - Gen Surg consulted, MRCP consistent with acute cholecystitis though pt has no symptoms; will obtain HIDA. apixaban held, Tbili normalized, prn oxycodone, continue medical management on d#5 of ceftriaxone/metronidazole # iron overload in liver and spleen - ferritin markedly elevated, will consult GI # diastolic CHF, chronic - does not appear volume-overloaded; continue carvedilol # ESRD - resume home HD MWF - continue sevelamer # pAF - continue amiodarone - hold apixaban # HTN - continue carvedilol, holding amlodipine + hydralazine # VTE ppx: SCDs In my clinical judgment, the patient requires continued hospitalization for the following reasons: IV ABX, acute cholecystitis Quality Stroke Does the patient have a stroke diagnosis?: No VTE Prior VTE?: No VTE Risk Level:: Medical - moderate - high VTE Device Contraindication: N/A - Device Ordered VTE Drug Contraindication: Treatment Not Indicated
--- NOTE | 2022-02-08 15:45 | MHC.CM.PN ---
per rounds pt will be dc 1 to 2 days
[2022-02-08] MEDS: 0.9 % Sodium Chloride Flush 3 ML SYRINGE IVFLUSH (17:43)
[2022-02-08] MEDS: cefTRIAXone sodium 1 GM in 0.9 % Sodium Chloride 50 ML IV (17:43)
[2022-02-08] MEDS: Sevelamer Carbonate Tablet 800 MG TABLET PO ×2 (17:45→20:20)
[2022-02-08] MEDS: Amiodarone HCL 200 MG TABLET 100 MG PO (17:45)
[2022-02-08] MEDS: Cholecalciferol (Vitamin D3) 25 MCG TABLET PO (17:45)
[2022-02-08 20:00] VITALS: BP 111/57; PULSE 63; RESP 18; TEMP 37.4; O2SAT 96
[2022-02-08] MEDS: carvediloL 6.25 MG TABLET PO (20:20)
[2022-02-08] MEDS: Calcium + Vitamin D 250 MG TABLET PO (20:20)
[2022-02-08 23:38] VITALS: BP 95/53; PULSE 61; RESP 17; TEMP 36.9; O2SAT 97
--- NOTE | 2022-02-09 02:22 | CONS_ITS ---
DATE OF SERVICE: 02/08/2022 REFERRING PHYSICIAN: Reagan Dennis MD REASON FOR CONSULTATION: Abnormal MRI of the liver and spleen with elevated ferritin. HISTORY OF PRESENT ILLNESS: The patient is a pleasant 71-year-old woman seen today in consultation at the request of Dr. Dennis because of an abnormal MRI scan and elevated ferritin. She was hospitalized on February 04 with cholecystitis after being discharged the day previous for the same problem. She has been evaluated by Dr. Romano and is currently undergoing a HIDA scan for further evaluation. Consultation is requested because of the patient's MRI and elevated ferritin. She underwent MRCP yesterday because of elevated liver function tests, which had been normal previously. This showed changes on MRI suggesting abnormal iron deposition. This was also noted in the spleen. The patient does have a renal failure history and describes undergoing transfusions, but is unsure of the number she has had. She has no known hematologic issues, but does not know if she has been on iron in the past. History is somewhat limited. She denies a history of liver disease. She does have a family history of liver disease in a brother who drink alcohol, but she herself does not drink alcohol. Laboratory studies showed an elevated ferritin at 2274. Iron study showed a saturation of 38%. PAST MEDICAL HISTORY: 1. End-stage renal disease with history of IgA nephropathy, currently on dialysis. 2. Cholecystitis as above. 3. Coronary artery disease with ischemic cardiomyopathy and ICD placement. 4. Hypertension. 5. Hyperlipidemia. 6. Atrial fibrillation. 7. Ventricular tachycardia. CURRENT MEDICATIONS: Her current medication list is reviewed in the chart. ALLERGIES: NSAIDS. FAMILY HISTORY: This is reviewed with the patient. SOCIAL HISTORY: There is no substance abuse. REVIEW OF SYSTEMS: SKIN: No pruritus. HEENT: Negative. CARDIOPULMONARY: No shortness of breath or chest pain. GASTROINTESTINAL: As above. GENITOURINARY: Negative. NEUROPSYCHIATRIC: Negative. PHYSICAL EXAMINATION: GENERAL: Shows a pleasant female, lying on the table in the nuclear medicine suite. VITAL SIGNS: Stable. SKIN: Anicteric. HEENT: Shows no scleral icterus. NECK: Without lymphadenopathy or thyromegaly. LUNGS: Clear. HEART: Shows regular rate and rhythm. S1 and S2. No murmur. ABDOMEN: Soft without focal masses or tenderness. Bowel sounds are present. No organomegaly is noted. EXTREMITIES: Without edema. LABORATORY DATA: Reviewed. IMPRESSION: 1. Elevated ferritin. 2. Abnormal MRI showing an abnormal signal in the liver and spleen suggesting abnormal iron deposition. The patient's elevated ferritin is likely an acute phase reactant secondary to her underlying cholecystitis. Her iron saturation is only 38%, which is not consistent with a significant iron overload. The patient does not appear to have hemochromatosis as this does not involve the spleen and the changes on the MRI involved the spleen. Possible causes for increased iron deposition could include alcohol, which does not apply in her case. She has had transfusions and this may be a possible cause. Other possible causes include ineffective erythropoiesis and hematology consultation could be obtained for evaluation of this. If she has been on iron in the past, this could also be associated with the findings on the MRI, although again her iron saturation is not suggestive of iron overload. The MRI findings are interesting from an academic standpoint but probably not clinically significant. Thanks for asking me to see her. I will follow her in the hospital as needed. MD RASHAD Ramirez/ANDREA / [id number] MTDD
[2022-02-09 04:00] VITALS: BP 118/63; PULSE 65; RESP 17; TEMP 36.8; O2SAT 93
[2022-02-09] MEDS: metroNIDAZOLE/NS 500 MG/100 ML PIGGYBACK 100 MG IV ×2 (04:05→10:35)
[2022-02-09 07:48] VITALS: BP 114/59; PULSE 63; RESP 18; TEMP 36.8; O2SAT 98
[2022-02-09] MEDS: Amiodarone HCL 200 MG TABLET 100 MG PO (08:58)
[2022-02-09] MEDS: Cholecalciferol (Vitamin D3) 25 MCG TABLET PO (08:58)
[2022-02-09] MEDS: carvediloL 6.25 MG TABLET PO (08:58)
[2022-02-09] MEDS: Sevelamer Carbonate Tablet 800 MG TABLET PO (08:58)
[2022-02-09] MEDS: 0.9 % Sodium Chloride Flush 3 ML SYRINGE IVFLUSH (08:59)
--- NOTE | 2022-02-09 10:13 | PM.PNNEP ---
Subjective Subjective Date of Service: 02/09/22 Interval history: Seen and exmained, events noted Physical Exam Vital Signs: Vital Signs: Last Vital Signs Temp 98.3 F 02/09/22 07:48 Pulse 63 02/09/22 07:48 Resp 18 02/09/22 07:48 BP 114/59 L 02/09/22 07:48 Pulse Ox 98 02/09/22 07:48 O2 Del Method 02/09/22 07:48 BMI result Body Mass Index 18.3 Const: Other: sitting up on recliner, having a meal General: comfortable and no acute distress Orientation/consciousness: patient oriented x3 Neck: Neck: Yes no lymphadenopathy Resp: Effort & Inspection: normal respiratory effort Auscultation: clear to auscultation bilaterally Cardio: Rate: regular rate Rhythm: regular rhythm GI: Other: no Solis's sign Palpation (GI): Soft to palpation, not firm, nontender and no guarding Neuro: General: patient oriented x3 Objective Data Labs CBC & Chem 7: 02/08/22 08:10 02/05/22 06:53 Procedures Date of Service Date of Service: 02/09/22 Assessment & Plan Assessment and plan (1) Elevated bilirubin: Status: Acute (2) Acute calculous cholecystitis: Status: Acute (3) ESRD (end stage renal disease) on dialysis: Status: Acute Plan 1. ESRD: mwf 2. Acute Linda: being eval by surg 3. CHF: compensated 4. H/O HTN: meds on hold for now REC: no new recs; cont HD 3x/wk; ABx and w/u acute linda as noted Time Spent With Patient Time: Total time spent is greater than 50% in coordination of care (as documented) at patient's floor/unit and/or counseling patient: Progress Note: Quality Stroke Does the patient have a stroke diagnosis?: No
[2022-02-09 11:09] VITALS: BP 103/57; PULSE 65; RESP 16; TEMP 36.6; O2SAT 98
--- NOTE | 2022-02-09 11:21 | PM.DS ---
DS: Providers Provider Date of Service: 02/09/22 Date of admission: 02/04/22 11:37 Date of discharge: 02/09/22 Primary care physician: Unknown Physician Consults: 02/05/22 13:20 Consult to General Surgery Routine Consulting Provider: Bradly Romano Reason for consultation: linda Has provider been notified: Yes 02/05/22 13:32 Consult to Nephrology Routine Consulting Provider: Scot Bolton Reason for consultation: esrd need hd 02/08/22 14:19 Consult to Gastroenterology Routine Consulting Provider: [facility] Reason for consultation: iron deposition in liver/spleen- hemochromatosis? DS: Diagnosis Discharge Diagnosis (1) Elevated bilirubin: Status: Acute (2) Acute calculous cholecystitis: Status: Acute (3) ESRD (end stage renal disease) on dialysis: Status: Acute DS: Summary Hospital Course Hospital Course: From the history and physical by the admitting hospitalist, Dr Jose Soto, 02/04/22: 71-year-old Icelandic-speaking female patient with past medical history of hypertension, hyperlipidemia, coronary artery disease, CHF status post AICD, paroxysmal atrial fibrillation on Eliquis, history of ventricular tachycardia, end-stage renal disease on hemodialysis was admitted to [facility] on 01/30/2022 with symptoms of nausea, vomiting with ultrasound and CT abdomen concerning for acute cholecystitis with normal LFTs, no fevers and normal WBC count patient was discharge from [facility] on 02/03 after being closely monitored for abdominal pain and since patient remained hemodynamically stable was discharged home on by mouth antibiotics for total 7 days however patient returned back to [facility] this morning due to complain of neck pain as well as left shoulder pain with radiation towards the right? mid back and right upper quadrant workup in the emergency room showed elevated LFTs and ultrasound of the abdomen suggestive of acute cholecystitis,? with sludge and small stones in the gallbladder ,gallbladder wall thickness has increased from 01/30 abdominal ultrasound , therefore patient is being admitted to [facility] for pain control and possible acute cholecystitis, of note patient is? a poor historian. This 71yo F with HTN, HLD, CAD, CHF, pAF on apixaban, hx VT and now s/p AICD and ESRD on HD presented with neck/back/RUQ pain and was admitted for concern of cholecystitis after recent admission for medically managed cholecystitis. She was treated with IV ceftriaxone and metronidazole. General Surgery was consulted. MRCP and HIDA consistent with acute cholecystitis, but the patient's symptoms resolved right after admission and her abdomen was completely benign. Bilirubin normalized. It was thought that she passed a stone. Medical management was recommended by the surgeon. She was discharged home with 9 more days of antibiotics treatment with cefuroxime and metronidazole to complete a total of 14 days. She should follow up with General Surgery in 2 weeks. Strict return precations were counseled, and she was advised to follow a very low-fat diet. She underwent dialysis as per her usual outpatient schedule. Time Spent with Patient Time attestation: Total time spent providing and/or coordinating discharge services:35 Discharge coordination time: Greater than 30 minutes Quality: Safe Use of Opioids Does Pt have an Active Cancer Diagnosis on the Problem List?: No Quality: Stroke Does the patient have a stroke diagnosis?: No Physical Exam Vital Signs: Vital Signs: Last Vital Signs Temp 97.8 F 02/09/22 11:09 Pulse 65 02/09/22 11:09 Resp 16 02/09/22 11:09 BP 103/57 L 02/09/22 11:09 Pulse Ox 98 02/09/22 11:09 O2 Del Method 02/09/22 11:09 BMI result Body Mass Index 18.3 Gen: in no acute distress HEENT: sclera anicteric, moist mucus membranes Neck: supple Lungs: clear to auscultation bilaterally Heart: regular rate and rhythm, no murmurs Abd: soft, non-tender, non-distended Ext: no edema Skin: warm/well-perfused Neuro: alert and oriented x3, no focal findings Psych: appropriate affect DS: Data Data Completed and Pending Completed studies during hospitalization [Text1]: Laboratory Results WBC 4.9 X10*3/uL (4.8-10.8) 02/08/22 08:10 RBC 4.16 X10*6/uL (4.20-5.50) L 02/08/22 08:10 Hgb 11.2 g/dl (12.0-16.0) L 02/08/22 08:10 Hct 37.0 % (37.0-47.0) 02/08/22 08:10 MCV 88.9 fL (80.0-98.0) 02/08/22 08:10 MCH 26.9 pg (27.0-33.0) L 02/08/22 08:10 MCHC 30.3 g/dl (31.0-35.0) L 02/08/22 08:10 RDW 15.9 % (11.0-16.0) 02/08/22 08:10 Plt Count 149 X10*3/uL (160-400) L 02/08/22 08:10 MPV 8.8 fL (9.4-12.3) L 02/08/22 08:10 Immature Gran % (Auto) 0.5 % (0.0-0.4) H 02/05/22 06:53 Neut % (Auto) 65.7 % (45-73) 02/05/22 06:53 Lymph % (Auto) 19.6 % (20-40) L 02/05/22 06:53 [place] % (Auto) 12.7 % (2-11) H 02/05/22 06:53 Eos % (Auto) 1.3 % (0-4) 02/05/22 06:53 Baso % (Auto) 0.2 % (0-2) 02/05/22 06:53 Lymph # (Auto) 1.2 X10*3/uL (1.2-4.9) 02/05/22 06:53 [place] # (Auto) 0.8 X10*3/uL (0.1-1.2) 02/05/22 06:53 Eos # (Auto) 0.1 X10*3/uL (0.0-0.4) 02/05/22 06:53 Baso # (Auto) 0.0 X10*3/uL (0.0-0.2) 02/05/22 06:53 Abs Immat Gran (auto) 0.03 X10*3/uL (0.00-0.03) 02/05/22 06:53 Absolute Neuts (auto) 4.1 x10*3/uL (2.0-8.3) 02/05/22 06:53 Absolute Nucleated RBC 0.000 X10*3/uL (0.0-0.012) 02/08/22 08:10 Nucleated RBC % (auto) 0.0 /100WBC (0.0-0.2) 02/08/22 08:10 Sodium 135 mmol/L (135-145) 02/05/22 06:53 Potassium 4.1 mmol/L (3.3-5.1) 02/05/22 06:53 Chloride 98 mmol/L (96-108) 02/05/22 06:53 Carbon Dioxide 21 mmol/L (22-29) L 02/05/22 06:53 Anion Gap 20 (12-20) 02/05/22 06:53 BUN 32 mg/dL (9-16) H 02/05/22 06:53 Creatinine 7.27 mg/dL (0.5-1.4) H* 02/05/22 06:53 Estim Creat Clear Calc 5.4 02/05/22 06:53 Estimated GFR 6 02/05/22 06:53 Random Glucose 92 mg/dL (60-115) 02/05/22 06:53 Calcium 8.2 mg/dL (8.4-10.2) L 02/05/22 06:53 Iron 51 mcg/dL (30-160) 02/08/22 08:10 TIBC 135 mcg/dL (228-428) L 02/08/22 08:10 % Saturation 38 % (15-50) 02/08/22 08:10 Unsat Iron Binding 84 ug/dL 02/08/22 08:10 Ferritin 2274 ng/mL (10-250) H 02/08/22 08:10 Total Bilirubin 0.4 mg/dL (0.0-1.0) 02/07/22 05:47 Direct Bilirubin 0.4 mg/dL (0.0-0.5) 02/07/22 05:47 AST 21 U/L (5-31) 02/07/22 05:47 ALT 10 U/L (0-31) 02/07/22 05:47 Alkaline Phosphatase 426 U/L (39-117) H 02/07/22 05:47 C-Reactive Protein 4.12 mg/dL (< or = 0.50) H 02/08/22 08:10 Total Protein 6.3 g/dL (6.5-8.0) L 02/07/22 05:47 Albumin 2.8 g/dL (3.5-5.0) L 02/07/22 05:47 Lipase 129 U/L (8-78) H 02/06/22 05:22 COVID-19 (MITZI) Negative (Negative) 02/04/22 11:41 COVID-19 Clin Com See Note 02/04/22 11:41 Impressions Abdomen Ultrasound 02/04/22 07:55 IMPRESSION: Acute cholecystitis with sludge and small stones in the gallbladder. Gallbladder wall thickness has increased from 01/30/2022 exam. Cholangiopancreatography MRI 02/07/22 10:03 IMPRESSION: Abnormal appearance to the gallbladder in keeping with suspected acute cholecystitis from prior ultrasound examinations. There is periportal edema presumably related to the suspected acute cholecystitis. No biliary ductal dilatation. No choledocholithiasis. Abnormal signal in the liver and spleen suggesting abnormal iron deposition. Hepatobiliary Scan Nuclear Medicine 02/08/22 15:30 IMPRESSION: Nonvisualization the gallbladder is evidence of an obstructed cystic duct and strong evidence to suggest the diagnosis of acute cholecystitis. The common bile duct is patent. Prolonged retention of activity in the liver is evidence of diffuse hepatocellular disease. Discharge Plan Discharge Patient Disposition: Home, Self-Care Discharge Diagnosis: cholecystitis Referrals: [facility] [Physician] - 02/21/22 10:15 am (follow up appointment scheduled, call if you need to reschedule ) Bradly Romano MD [Physician] - 2 Weeks Discharge Medications: New cefuroxime axetil 250 mg tablet 250 mg PO DAILY Qty: 9 0RF metronidazole 500 mg tablet 500 mg PO BID Qty: 18 0RF Continued Eliquis 5 mg tablet 5 mg PO BID Qty: 180 3RF carvedilol 6.25 mg tablet 6.25 mg PO BID Qty: 180 1RF amiodarone 200 mg tablet 100 mg PO DAILY Qty: 45 1RF magnesium oxide 400 mg (241.3 mg magnesium) tablet 400 mg PO DAILY Qty: 90 0RF omeprazole 20 mg capsule,delayed release(DR/EC) 20 mg PO DAILY@0630 PRN (Reason: Acid Reflux) loratadine 10 mg tablet 10 mg PO Q2D calcium carbonate-vitamin D3 600 mg-10 mcg (400 unit) tablet 1 tab PO BEDTIME lidocaine-prilocaine 2.5-2.5 % cream 1 appl topical 3XW sevelamer carbonate 800 mg tablet 1 tab PO TID acetaminophen 325 mg Tablet 650 mg PO Q4H PRN (Reason: Pain (Scale Score 1-3)) cholecalciferol (vitamin D3) 25 mcg (1,000 unit) capsule 25 mcg PO DAILY atorvastatin 80 mg tablet 80 mg PO BEDTIME Discontinued amlodipine 10 mg tablet 5 mg PO DAILY metronidazole 500 mg tablet 500 mg PO Q8H Qty: 8 0RF cefuroxime axetil 500 mg tablet 500 mg PO Q12H Qty: 6 0RF Discharge Orders: Discharge Order (Routine); Ordered 02/09/22 Ordered By: Reagan Dennis Diet: Low fat, low cholesterol Activity on Discharge: As tolerated Stand Alone Forms: Patient Portal Discharge page Care Plan Goals: control of gallbladder disease Health Concerns: cholecystitis Plan of Treatment: take antibiotics for 9 days: cefuroxime 250 mg daily metronidazole 500 mg twice daily Please follow up with your primary care doctor within 1 week. Return to the hospital if you experience recurrent or worsening symptoms. Follow up with Dr Bradly Romano from General Surgery in 2 weeks. Low-fat diet. Assessment: See Discharge Summary.
--- NOTE | 2022-02-09 11:27 | P.CDIC_ITS ---
CDI Concurrent Query Documentation Clarification: PHYSICIAN'S DOCUMENTATION REQUEST Date of Query: 02/09/22 1127 Patient Name: Gabriel Beck Admit Date: 02/04/22 Dear Doctor, A review of the medical record indicates additional documentation may be needed. Please review below and update the documentation accordingly. Clinical Indicators: Height: [] 5'5 Weight: [] 49.895 kg BMI: [] 18.3 Other Clinical Notes Supporting Significance of the BMI: Risk Factors/Clinical Indicators/Treatments Per Clinical Nutrition note 02/07/22: on therapeutic diet oral intake < 50% x5 days 02/07/22: Total protein 6.3, Albumin 2.8 If possible, please provide an associated diagnosis related to the abnormal BMI, such as: For a BMI <= 19: * Underweight * Weight loss * Cachexia * Anorexia Or: * BMI is not significant * Other (please specify) * Unable to determine Use of terms such as suspected, likely, concern for, or probable (associated with a specific diagnosis that is being evaluated, monitored, or treated as if it exists) are acceptable and can be coded in the inpatient setting, when documented at the time of discharge. Thank you, Estee Kimble RN Extension: [phone] Please use your independent medical judgment in providing your response. THIS QUERY IS PART OF THE PERMANENT MEDICAL RECORD Provider Response: Other Other Diagnosis: underweight
--- NOTE | 2022-02-09 12:25 | MHC.CM.PN ---
Patient has been medically cleared for dc to home today, self care. IMM addressed today with Patient at bedside and original has been given to him and a copy has been placed on the chart.
--- NOTE | 2022-02-09 14:08 | PC.NURSE ---
Alert and oriented. Denies pain, VSS, afebrile, no acute resp. distress noted. Took alls chedule meds as order. Right arm AV fistula (+) bruit/thrill. New order to discharge patient home. Went over discharge istructions, follow up apt and medication administrations with the help of a captain's assistant, verbalized understanding back. [facility] left [facility] car with her niece Chantal.
== END 2022-02-09 13:51 | disposition home or self-care (01) | DRG 444 ==
LOC: HO.ED 02-04 10:01 → HO.EDOVER 02-04 11:46 → HO.IMC 02-04 15:47
PROVIDERS: Admitting Provider Hospitalist; Emergency Provider Emergency Medicine; PCP Family Medicine; Visit Provider Family Medicine
DX: K80.00 Calculus of gallbladder with acute cholecystitis without obstruction (principal); N18.6 End stage renal disease; I13.2 Hypertensive heart and chronic kidney disease with heart failure and with stage 5 chronic kidney disease, or end stage renal disease; I50.32 Chronic diastolic (congestive) heart failure; Z68.1 Body mass index [BMI] 19.9 or less, adult; I25.5 Ischemic cardiomyopathy; I25.10 Atherosclerotic heart disease of native coronary artery without angina pectoris; I48.0 Paroxysmal atrial fibrillation; R63.6 Underweight; I25.2 Old myocardial infarction; E78.5 Hyperlipidemia, unspecified; Z95.810 Presence of automatic (implantable) cardiac defibrillator; Z79.01 Long term (current) use of anticoagulants; Z79.899 Other long term (current) drug therapy
CPT/HCPCS: 36415; 74181; 76705; 78226; 80048; 80076; 82728; 83540; 83690; 85025; 85027; 86140; 87635; 90686; 90999; 99285; A9537; J0696; J1170; J2405

== ENCOUNTER → 2022-02-23 10:22 | Outpatient (BNVA) | payer OTHER, SELFPAY | PROVIDERS: PCP Family Medicine; Referring Provider Family Medicine; Visit Provider Surgery | DX: K80.20 Calculus of gallbladder without cholecystitis without obstruction (principal) | CPT/HCPCS: 99212 ==

== ENCOUNTER 2022-03-03 06:53 | Observation (INO) | payer OTHER, SELFPAY ==
--- NOTE | ~2022-03-03 | XR_ITS ---
EXAMINATION: XR CHEST CLINICAL INFORMATION: Pain. COMPARISON: January 29, 2022. TECHNIQUE: Portable AP view of the chest was obtained. XR/XR chest 1V FINDINGS/IMPRESSION: The study is limited by portable technique, low lung volumes, and pulse generator ejecting over the left costophrenic angle. Mild diffuse interstitial prominence. It is uncertain whether this represents artifactual crowding of the interstitium related to suboptimal inspiration versus true infiltrate, although the former is favored. The findings appear similar compared with January 29, 2022. No focal infiltrate, effusion, or pneumothorax is appreciated. The cardiac silhouette is poorly evaluated. The tip of a left subclavian pulse generator device lead projects over the right ventricle. The mediastinum and diaphragm appear unremarkable. A metallic stent projects over the expected location of the right axillary and proximal brachial vessels. There are mild degenerative changes of the spine, with mild spinal curvature.
--- NOTE | ~2022-03-03 | US_ITS ---
EXAMINATION: US ABDOMEN LIMITED CLINICAL INFORMATION: Right upper quadrant pain. COMPARISON: CT scan dated January 29, 2022. TECHNIQUE: Real-time imaging of the right upper quadrant abdominal viscera. FINDINGS: PANCREAS: Head and body appear unremarkable. Tail not visualized. LIVER: Normal. The liver is normal in size. The liver contour is normal. Parenchymal echogenicity is normal. No focal hepatic lesion. There is no intrahepatic biliary duct dilatation seen. GALLBLADDER: Cholelithiasis and sludge. No evidence of gallbladder wall thickening or pericholecystic fluid. COMMON BILE DUCT: Normal in caliber measuring 0.4 cm in diameter. RIGHT KIDNEY: Suspect diffusely increased renal parenchymal echogenicity, suboptimally evaluated. No hydronephrosis. No renal calculi identified. Approximately 2 cm or less, benign right simple renal cyst for which no further dedicated imaging is indicated.. The kidney measures 8.1 cm in maximum dimension. FREE FLUID: None. US/US abdomen limited IMPRESSION: Cholelithiasis and gallbladder sludge. Otherwise unremarkable right upper quadrant ultrasound examination.
--- NOTE | 2022-03-03 06:56 | ECG_ITS ---
Test Reason : CHEST PAIN Blood Pressure : / mmHG Vent. Rate : 078 BPM Atrial Rate : 078 BPM P-R Int : 168 ms QRS Dur : 122 ms QT Int : 466 ms P-R-T Axes : 045 -34 -24 degrees QTc Int : 531 ms Normal sinus rhythm Possible Left atrial enlargement Left anterior fascicular block Left ventricular hypertrophy with QRS widening ( R in aVL , Deshawn product ) Nonspecific T wave abnormality Abnormal ECG When compared with ECG of 29-JAN-2022 21:32, No significant change was found Referred By: Bhavana Harris Electronically Signed By:BEBO COLLINS MD
--- NOTE | 2022-03-03 06:59 | ED.CHESTPAIN ---
HPI - Chest Pain General Chief Complaint: Abdominal Pain Stated Complaint: CP,H/O DIALYSIS DUE TODAY PER EMS Source: patient and old records reviewed Mode of arrival: EMS Limitations: no limitations History of Present Illness HPI narrative: 71 yo female with hx of ESRD on HD MWF, CAD EF 45% known diffusely irregular LAD, 50% 1st diagonal ostial disease - medical management, HTN, HLD, ICD - ischemic cardiomyopathy, PAF on eliquis, biliary disease presents with RUQ and epigastric pain with n/v since midnight last night. Ate soup for dinner. Was just admitted here in january for cholecystitis - responded to IV antibiotics. Plan was more conservative given risks of surgery and patient's multiple medical problems. MD complaint: other (abdominal pain) Pertinent past history: coronary artery disease Onset (ago): hour(s) (7) Timing of current episode: constant Prior episodes: Yes Onset: during rest Pain location: other (epigastric RUQ) Pain radiation: none Severity: moderate Quality: sharp Relieving factors: nothing Exacerbating factors: nothing Context: recent illness Associated symptoms: nausea and vomiting Treatment prior to arrival: aspirin Related Data Home Medications Medication Instructions Recorded Confirmed atorvastatin 80 mg tablet 80 mg PO BEDTIME 04/20/20 03/03/22 calcium carbonate 600 mg-vitamin 1 tab PO BEDTIME 05/10/21 03/03/22 D3 10 mcg (400 unit) tablet loratadine 10 mg tablet 10 mg PO Q2D 05/10/21 03/03/22 acetaminophen 325 mg tablet 650 mg PO Q4H PRN Pain (Scale 01/30/22 03/03/22 Score 1-3) lidocaine-prilocaine 2.5 %-2.5 % 1 appl topical MOWEFR prior to 01/30/22 03/03/22 topical cream dialysis sevelamer carbonate 800 mg tablet 1 tab PO TID 01/30/22 03/03/22 Previous Rx's Medication Instructions Recorded carvedilol 6.25 mg tablet 6.25 mg PO BID #180 tabs 08/30/21 amiodarone 200 mg tablet 100 mg PO DAILY #45 tabs 11/16/21 magnesium oxide 400 mg (241.3 mg 400 mg PO DAILY #90 tabs 01/13/22 magnesium) tablet apixaban 5 mg tablet (Eliquis) 5 mg PO BID #180 tabs 02/13/22 Allergies Allergy/AdvReac Type Severity Reaction Status Date / Time NSAIDS (Non-Steroidal Allergy Unknown Unknown Verified 02/23/22 10:58 Anti-Inflamma Review of Systems Review of Systems: Constitutional : No Weight loss, No Fever, No Chills ENT/Mouth : No sore throat, No Rhinorrhea Eyes: No Swelling, No Redness Cardiovascular : No Chest Pain, No SOB, NoEdema Respiratory : No Cough, No Sputum, No Wheezing Gastrointestinal : Positive Nausea, Positive Vomiting, no Diarrhea, positive abdominal Pain, No Hematochezia, No Melena Genitourinary : No Dysuria, No Urinary Frequency, No Hematuria, No Urgency Musculoskeletal : No joint pain, No Myalgias, No Joint Swelling Skin : No Skin Lesions, No rash Neuro : No Weakness, No Numbness, No Dizziness, No Headache Psych : No Anxiety/Panic, No Depression Heme/Lymph: No Bruising, No Lymphadenopathy Endocrine : No Polyuria, No Polydipsia All other systems reviewed and are negative. [facility] Past Medical History Medical History CAD (coronary artery disease) Elevated bilirubin ESRD (end stage renal disease) ESRD (end stage renal disease) on dialysis Gallstones HTN (hypertension) Hyperlipidemia ICD (implantable cardioverter-defibrillator) in place Ischemic cardiomyopathy Paroxysmal atrial fibrillation Ventricular tachycardia Surgical History History of pubovaginal sling Hx of knee surgery Family History Family History Father No problems noted. Mother No problems noted. 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) Unable to assess alcohol history related to: Unknown Alcohol intake: never Patient Tobacco Use Status: Never used Tobacco Use of substances other than those prescribed or required for medical reasons: No Advance Directives: No Advance Directives Information Provided: Yes service: No Current occupational status: unemployed and disabled Physical Exam Vital Signs: Vital Signs: Last Vital Signs Temp 97.6 F 03/03/22 10:00 Pulse 71 03/03/22 10:00 Resp 17 03/03/22 10:00 BP 135/65 03/03/22 10:00 Pulse Ox 96 03/03/22 10:00 O2 Del Method 03/03/22 10:00 BMI result Body Mass Index 23.4 Appearance: Alert. Oriented X3. anxious in pain mild acute distress. Eyes: Pupils equal, round and reactive to light. ENT: Pharynx normal. Neck: Normal inspection. Neck supple. CVS: Normal heart rate and rhythm. Pulses normal. Respiratory: No respiratory distress. Breath sounds diminished R base Abdomen: Soft and moderate ttp in epigastric and RUQ area + schmitz's sign Skin: Skin warm and dry. pale skin color. Normal skin turgor. Extremities: No lower extremity edema. No calf ttp Neuro: Oriented X 3. No motor deficit. No sensory deficit. Course Course Course Narrative: message sent to Dr. Ricci 1025am will admit possible infection suspected 118pm no signs of sepsis at this time will start on ceftriaxone Dr. Ricci to admit MDM - Chest Pain MDM Narrative Medical decision making narrative: 71 yo female with hx of ESRD on HD MWF, CAD EF 45% known diffusely irregular LAD, 50% 1st diagonal ostial disease - medical management, HTN, HLD, ICD - ischemic cardiomyopathy, PAF on eliquis recent admission for cholecystitis - conservative management. Presents with abdominal pain and n/v. At this time suspect recurrence of her biliary pathology. Will obtain labs, CXR, US of GB, IV morphine for pain. EKG is ordered. Dispo per results and findings. Lab Data Result diagrams: 03/03/22 07:30 03/03/22 08:27 Labs: Lab Results 03/03/22 03/03/22 03/03/22 Range/Units 07:29 07:30 07:30 WBC 4.5 L (4.8-10.8) X10*3/uL RBC 3.84 L (4.20-5.50) X10*6/uL Hgb 10.5 L (12.0-16.0) g/dl Hct 34.3 L (37.0-47.0) % MCV 89.3 (80.0-98.0) fL MCH 27.3 (27.0-33.0) pg MCHC 30.6 L (31.0-35.0) g/dl RDW 16.5 H (11.0-16.0) % Plt Count 113 L (160-400) X10*3/uL MPV 9.5 (9.4-12.3) fL Immature Gran % (Auto) 0.4 (0.0-0.4) % Neut % (Auto) 65.7 (45-73) % Lymph % (Auto) 24.0 (20-40) % [place] % (Auto) 8.6 (2-11) % Eos % (Auto) 1.1 (0-4) % Baso % (Auto) 0.2 (0-2) % Lymph # (Auto) 1.1 L (1.2-4.9) X10*3/uL [place] # (Auto) 0.4 (0.1-1.2) X10*3/uL Eos # (Auto) 0.1 (0.0-0.4) X10*3/uL Baso # (Auto) 0.0 (0.0-0.2) X10*3/uL Abs Immat Gran (auto) 0.02 (0.00-0.03) X10*3/uL Absolute Neuts (auto) 3.0 (2.0-8.3) x10*3/uL Absolute Nucleated RBC 0.000 (0.0-0.012) X10*3/uL Nucleated RBC % (auto) 0.0 (0.0-0.2) /100WBC PT 16.4 H (10.0-13.1) SEC INR 1.4 H (0.9-1.1) Sodium (135-145) mmol/L Potassium (3.3-5.1) mmol/L Chloride (96-108) mmol/L Carbon Dioxide (22-29) mmol/L Anion Gap (12-20) BUN (9-16) mg/dL Creatinine (0.5-1.4) mg/dL Estim Creat Clear Calc Estimated GFR Random Glucose (60-115) mg/dL Lactic Acid (0.5-2.0) mmol/L Calcium (8.4-10.2) mg/dL Magnesium (1.6-2.6) mg/dL Total Bilirubin (0.0-1.0) mg/dL Direct Bilirubin (0.0-0.5) mg/dL AST (5-31) U/L ALT (0-31) U/L Alkaline Phosphatase (39-117) U/L Troponin I High Sens 15.2 (<3.5-17.0) ng/L Total Protein (6.5-8.0) g/dL Albumin (3.5-5.0) g/dL Lipase (8-78) U/L COVID-19 (MITZI) (Negative) COVID-19 Clin Com 03/03/22 03/03/22 03/03/22 Range/Units 07:30 07:42 08:27 WBC (4.8-10.8) X10*3/uL RBC (4.20-5.50) X10*6/uL Hgb (12.0-16.0) g/dl Hct (37.0-47.0) % MCV (80.0-98.0) fL MCH (27.0-33.0) pg MCHC (31.0-35.0) g/dl RDW (11.0-16.0) % Plt Count (160-400) X10*3/uL MPV (9.4-12.3) fL Immature Gran % (Auto) (0.0-0.4) % Neut % (Auto) (45-73) % Lymph % (Auto) (20-40) % [place] % (Auto) (2-11) % Eos % (Auto) (0-4) % Baso % (Auto) (0-2) % Lymph # (Auto) (1.2-4.9) X10*3/uL [place] # (Auto) (0.1-1.2) X10*3/uL Eos # (Auto) (0.0-0.4) X10*3/uL Baso # (Auto) (0.0-0.2) X10*3/uL Abs Immat Gran (auto) (0.00-0.03) X10*3/uL Absolute Neuts (auto) (2.0-8.3) x10*3/uL Absolute Nucleated RBC (0.0-0.012) X10*3/uL Nucleated RBC % (auto) (0.0-0.2) /100WBC PT (10.0-13.1) SEC INR (0.9-1.1) Sodium 138 (135-145) mmol/L Potassium 5.0 D (3.3-5.1) mmol/L Chloride 103 (96-108) mmol/L Carbon Dioxide 20 L (22-29) mmol/L Anion Gap 20 (12-20) BUN 43 H (9-16) mg/dL Creatinine 7.23 H* (0.5-1.4) mg/dL Estim Creat Clear Calc 4.9 Estimated GFR 6 Random Glucose 113 (60-115) mg/dL Lactic Acid 1.3 (0.5-2.0) mmol/L Calcium 8.6 (8.4-10.2) mg/dL Magnesium 2.2 (1.6-2.6) mg/dL Total Bilirubin 0.7 (0.0-1.0) mg/dL Direct Bilirubin 0.2 (0.0-0.5) mg/dL AST 21 (5-31) U/L ALT 9 (0-31) U/L Alkaline Phosphatase 165 H D (39-117) U/L Troponin I High Sens (<3.5-17.0) ng/L Total Protein 7.3 (6.5-8.0) g/dL Albumin 3.2 L (3.5-5.0) g/dL Lipase 201 H (8-78) U/L COVID-19 (MITZI) Negative (Negative) COVID-19 Clin Com See Note ECG Data ECG #1: Attestation: I personally reviewed and interpreted this ECG as follows: ECG interpretation date: 03/03/22 ECG interpretation time: 07:02 Interpretation: Rate: 78 Rhythm: NSR [place]: left Normal P waves. Normal MIGUELANGEL. slightly widened QRS complex. ST T wave : inverted t waves III aVF flat t waves V1 - V2, inverted t wave in V3 V5-V6, nonspecific V6 no JONAH qTC: normal prior studies: no sig change from priors The study has been interpreted contemporaneously by me. . Discharge Plan Discharge Clinical Impression: Abdominal pain, Cholelithiasis Patient Disposition: Admitted As Inpatient Prescriptions: No Action carvedilol 6.25 mg tablet 6.25 mg PO BID Qty: 180 1RF amiodarone 200 mg tablet 100 mg PO DAILY Qty: 45 1RF magnesium oxide 400 mg (241.3 mg magnesium) tablet 400 mg PO DAILY Qty: 90 0RF Eliquis 5 mg tablet 5 mg PO BID Qty: 180 3RF loratadine 10 mg tablet 10 mg PO Q2D calcium carbonate-vitamin D3 600 mg-10 mcg (400 unit) tablet 1 tab PO BEDTIME lidocaine-prilocaine 2.5-2.5 % cream 1 appl topical MOWEFR sevelamer carbonate 800 mg tablet 1 tab PO TID acetaminophen 325 mg Tablet 650 mg PO Q4H PRN (Reason: Pain (Scale Score 1-3)) atorvastatin 80 mg tablet 80 mg PO BEDTIME
[2022-03-03 07:07] VITALS: BP 133/88; PULSE 60; O2SAT 97
[2022-03-03 07:11] VITALS: BP 153/70; PULSE 76; RESP 16; TEMP 37; O2SAT 100; BMI 23.4
[2022-03-03] MEDS: ondansetron HCL 4 MG/2 ML VIAL IVPUSH (07:23)
[2022-03-03] MEDS: Morphine Sulfate 4 MG/ML CARTRIDGE IVPUSH (07:23)
[2022-03-03 07:34] LABS: MANUAL DIFF FLAG NO
[2022-03-03 07:38] LABS: Basophils Percent Auto 0.2 % (0-2); Eosinophils Absolute Auto 0.1 X10*3/uL (0.0-0.4); Eosinophils Percent Auto 1.1 % (0-4); Hematocrit 34.3 % (37.0-47.0); Hemoglobin 10.5 g/dl (12.0-16.0); Imm Gran Abs Auto 0.02 X10*3/uL (0.00-0.03); Imm Gran Pct Auto 0.4 % (0.0-0.4); Lymphocytes Absolute Auto 1.1 X10*3/uL (1.2-4.9); Mean Corpuscular HGB Conc 30.6 g/dl (31.0-35.0); Mean Corpuscular Hemoglobin 27.3 pg (27.0-33.0); Mean Corpuscular Volume 89.3 fL (80.0-98.0); Mean Platelet Volume 9.5 fL (9.4-12.3); Monocytes Absolute Auto 0.4 X10*3/uL (0.1-1.2); Monocytes Percent Auto 8.6 % (2-11); Neutrophils Percent Auto 65.7 % (45-73); Platelet Count 113 X10*3/uL (160-400); Red Blood Count 3.84 X10*6/uL (4.20-5.50); Red Cell Distribution Width 16.5 % (11.0-16.0); White Blood Count 4.5 X10*3/uL (4.8-10.8)
[2022-03-03 07:43] LABS: INTERNATIONAL NORM RATIO 1.4 (0.9-1.1); Prothrombin Time 16.4 SEC (10.0-13.1)
[2022-03-03 07:48] LABS: Lactic Acid 1.3 mmol/L (0.5-2.0)
[2022-03-03 07:57] LABS: Troponin-I High Sensitivity 15.2 ng/L (<3.5-17.0)
[2022-03-03 08:04] LABS: COVID-19 Test Negative (Negative); IDNOW Serial# 9DB6401D
[2022-03-03 09:07] LABS: Alanine Aminotransferase 9 U/L (0-31); Albumin Level 3.2 g/dL (3.5-5.0); Alkaline Phosphatase 165 U/L (39-117); Anion Gap 20 (12-20); Aspartate Amino Transferase 21 U/L (5-31); Bilirubin Direct 0.2 mg/dL (0.0-0.5); Bilirubin Total 0.7 mg/dL (0.0-1.0); Blood Urea Nitrogen 43 mg/dL (9-16); Calcium 8.6 mg/dL (8.4-10.2); Carbon Dioxide 20 mmol/L (22-29); Chloride 103 mmol/L (96-108); Creatinine Clr Calc Pharmacy 4.9; Estimated Glomerular Filt Rate 6; Glucose Random 113 mg/dL (60-115); Lipase 201 U/L (8-78); Magnesium 2.2 mg/dL (1.6-2.6); Sodium 138 mmol/L (135-145); Total Protein 7.3 g/dL (6.5-8.0)
[2022-03-03 09:18] VITALS: BP 137/63; PULSE 72; RESP 16; O2SAT 96
--- NOTE | 2022-03-03 09:56 | PC.NURSE ---
Chantal ([facility]) [phone]
[2022-03-03 10:00] VITALS: BP 135/65; PULSE 71; RESP 17; TEMP 36.4; O2SAT 96
--- NOTE | 2022-03-03 11:24 | PHA.MEDREC ---
Pharmacy Consult ? Medication Reconciliation Pharmacy has completed the medication reconciliation. Patient confirmed all medications, report carvedilol was stopped and is no longer taking omeprazole. Layne Douglass, PharmD
[2022-03-03] MEDS: cefTRIAXone sodium 1 GM in 0.9 % Sodium Chloride 50 ML IV (13:36)
--- NOTE | 2022-03-03 14:26 | PM.CNGS ---
History of Present Illness Consult details Consult date: 03/03/22 Requesting physician: Bhavana Harris Narrative: 71-year-old female patient with a known history of gallstones and a previous positive HIDA scan with nonvisualization of the gallbladder previously evaluated by Dr. Romano and decision made to avoid surgery due to the patient's multiple medical conditions presenting today with complaints of abdominal pain in the right upper quadrant and epigastrium. Pain was associated with nausea vomiting and began around midnight last night. The pain was 10/10 when she presented to the emergency department but after receiving pain medication is currently at 2/10. She denies any further nausea or vomiting. Her past medical history significant for end-stage renal disease, with 3 times a week hemodialysis, CAD, EF 45 %, hypertension, hyperlipidemia ischemic cardiomyopathy, PAF on Eliquis. Review of Systems Constitutional: Constitutional: Reports body ache(s), Denies fever(s) and Reports poor appetite Cardiovascular: Cardiovascular: Denies chest pain, Reports irregular heart rhythm and Denies dyspnea Respiratory: Respiratory: Denies cough, Denies hemoptysis and Denies dyspnea Gastrointestinal: Gastrointestinal: Reports abdominal pain, Denies change in stool character, Reports nausea and Reports vomiting PMFSH Past Medical History Medical History CAD (coronary artery disease) Elevated bilirubin ESRD (end stage renal disease) ESRD (end stage renal disease) on dialysis Gallstones HTN (hypertension) Hyperlipidemia ICD (implantable cardioverter-defibrillator) in place Ischemic cardiomyopathy Paroxysmal atrial fibrillation Ventricular tachycardia Family History Family History Father No problems noted. Mother No problems noted. 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) Unable to assess alcohol history related to: Unknown Alcohol intake: never Patient Tobacco Use Status: Never used Tobacco Use of substances other than those prescribed or required for medical reasons: No Advance Directives: No Advance Directives Information Provided: Yes service: No Current occupational status: unemployed and disabled Meds Allergies Allergy/AdvReac Type Severity Reaction Status Date / Time NSAIDS (Non-Steroidal Allergy Unknown Unknown Verified 02/23/22 10:58 Anti-Inflamma Active Medications: Current Medications Pharmacy Consult (Consult Rx Perform Med Rec) 1 each MISCELLANE ONCE PRN PRN Reason: Consult order Home Medications Medication Instructions Recorded Confirmed Last Taken Type atorvastatin 80 mg tablet 80 mg PO BEDTIME 04/20/20 03/03/22 03/02/22 History calcium carbonate 600 mg-vitamin 1 tab PO BEDTIME 05/10/21 03/03/22 03/02/22 History D3 10 mcg (400 unit) tablet loratadine 10 mg tablet 10 mg PO Q2D 05/10/21 03/03/22 03/02/22 History acetaminophen 325 mg tablet 650 mg PO Q4H PRN Pain (Scale 01/30/22 03/03/22 Unknown History Score 1-3) lidocaine-prilocaine 2.5 %-2.5 % 1 appl topical MOWEFR prior to 01/30/22 03/03/22 Unknown History topical cream dialysis sevelamer carbonate 800 mg tablet 1 tab PO TID 01/30/22 03/03/22 03/02/22 History Physical Exam Vital Signs: Vital Signs: Last Vital Signs Temp 97.6 F 03/03/22 10:00 Pulse 71 03/03/22 10:00 Resp 17 03/03/22 10:00 BP 135/65 03/03/22 10:00 Pulse Ox 96 03/03/22 10:00 O2 Del Method 03/03/22 10:00 BMI result Body Mass Index 23.4 Const: General: cooperative and no acute distress Nutritional Appearance: well nourished Orientation/consciousness: patient oriented x3 Limitations: no limitations HEENT: Head: Yes normocephalic and Yes atraumatic Ears: hearing grossly normal bilaterally Resp: Effort & Inspection: normal respiratory effort, no audible wheezes, no cough and no respiratory distress GI: Inspection: Yes normal to inspection Palpation (GI): Soft to palpation, Tenderness to palpation present (GI) in the RUQ; Solis's sign negative, no guarding, not rigid and No hepatosplenomegaly present Skin: Other: Warm, dry, no rash, normal color Neuro: General: patient oriented x3 Extrem: General: Yes no clubbing, cyanosis or edema Results Labs Result diagrams: 03/03/22 07:30 03/03/22 08:27 Labs: Abnormal lab results 03/03/22 03/03/22 03/03/22 Range/Units 07:29 07:30 08:27 WBC 4.5 L (4.8-10.8) X10*3/uL RBC 3.84 L (4.20-5.50) X10*6/uL Hgb 10.5 L (12.0-16.0) g/dl Hct 34.3 L (37.0-47.0) % MCHC 30.6 L (31.0-35.0) g/dl RDW 16.5 H (11.0-16.0) % Plt Count 113 L (160-400) X10*3/uL Lymph # (Auto) 1.1 L (1.2-4.9) X10*3/uL PT 16.4 H (10.0-13.1) SEC INR 1.4 H (0.9-1.1) Carbon Dioxide 20 L (22-29) mmol/L BUN 43 H (9-16) mg/dL Creatinine 7.23 H* (0.5-1.4) mg/dL Alkaline Phosphatase 165 H D (39-117) U/L Albumin 3.2 L (3.5-5.0) g/dL Lipase 201 H (8-78) U/L Short CBC 03/03/22 Range/Units 07:30 WBC 4.5 L (4.8-10.8) X10*3/uL Hgb 10.5 L (12.0-16.0) g/dl Hct 34.3 L (37.0-47.0) % Plt Count 113 L (160-400) X10*3/uL BMP 03/03/22 08:27 Sodium 138 Potassium 5.0 D Chloride 103 Carbon Dioxide 20 L BUN 43 H Creatinine 7.23 H* Calcium 8.6 Liver Function 03/03/22 Range/Units 08:27 Total Bilirubin 0.7 (0.0-1.0) mg/dL Direct Bilirubin 0.2 (0.0-0.5) mg/dL AST 21 (5-31) U/L ALT 9 (0-31) U/L Alkaline Phosphatase 165 H D (39-117) U/L Albumin 3.2 L (3.5-5.0) g/dL All other labs normal. Assessment and Plan (1) Abdominal pain: Qualifiers: Abdominal location: right upper quadrant Qualified Code(s): R10.11 - Right upper quadrant pain Status: Acute (2) Acute calculous cholecystitis: Status: Acute Plan Abdominal pain right upper quadrant and epigastrium with a prior history of a positive HIDA scan with nonvisualization of the gallbladder. Findings may be suggestive of acute cholecystitis due to cholelithiasis. Discussed laparoscopic or possible open cholecystectomy with the patient including the risks and benefits. Patient feels improved currently and wishes to avoid surgery. She was previously evaluated by Dr. Romano as well and decision made to avoid surgery at that time. Patient should remain on a low-fat diet and if tolerated could follow-up as an outpatient with Dr. Romano. Procedures Date of Service Date of Service: 03/03/22
--- NOTE | 2022-03-03 16:01 | PM.IMHP ---
History of Present Illness Date of Service: 03/03/22 <KARENA Brian - Last Filed: 03/03/22 16:19> Attending physician on admission: Reagan Eden <KARENA Brian Last Filed: 03/03/22 16:19> Chief Complaint: abdominal pain <KARENA Brian Last Filed: 03/03/22 16:19> This is a 71-year-old Nepali-speaking female with multiple medical issues who presents to the emergency department today with complaints of abdominal pain. Patient was admitted the end of January twice for concern over acute cholecystitis. Most recently she was discharged on February 09 after being medically managed for cholecystitis with IV antibiotics. MRCP and HIDA scan were consistent with acute cholecystitis with the patient's symptoms resolved in her abdominal exam was benign. She was seen in follow-up outpatient with surgery and the patient wanted to avoid surgery if possible. Last night around midnight she began having sudden onset of 10/10 epigastric/periumbilical abdominal pain. This was associated with 1 episode of vomiting. She denies any associated fever, chills, diarrhea. She denies any pain with eating food. Her pain improved to a 2/10 with administration of pain medication in the emergency department. Repeat ultrasound obtained today shows cholelithiasis but no evidence of gallbladder wall thickening. LFTs were obtained and were within normal limits. Patient is afebrile. Patient was seen in consultation by surgery who recommended to admit the patient overnight for observation to see if she is able to tolerate a diet. <KARENA Brian Last Filed: 03/03/22 16:19> Review of Systems Review of Systems: Yes all other systems are reviewed and are negative <KARENA Brian Last Filed: 03/03/22 16:19> Constitutional: Constitutional: Denies chills and Denies fever(s) <KARENA Brian Last Filed: 03/03/22 16:19> Cardiovascular: Cardiovascular: Denies chest pain, Denies palpitations and Denies dyspnea <KARENA Brian Last Filed: 03/03/22 16:19> Respiratory: Respiratory: Denies cough and Denies dyspnea <KARENA Brian Last Filed: 03/03/22 16:19> Gastrointestinal: Gastrointestinal: Reports abdominal pain, Denies diarrhea, Denies nausea and Reports vomiting <KARENA Brian - Last Filed: 03/03/22 16:19> Endocrine: Endocrine: Denies palpitations <KARENA Brian - Last Filed: 03/03/22 16:19> [facility] Medical History: Medical History CAD (coronary artery disease) Elevated bilirubin ESRD (end stage renal disease) ESRD (end stage renal disease) on dialysis Gallstones HTN (hypertension) Hyperlipidemia ICD (implantable cardioverter-defibrillator) in place Ischemic cardiomyopathy Paroxysmal atrial fibrillation Ventricular tachycardia <KARENA Brian - Last Filed: 03/03/22 16:19> Family History: Family History Father No problems noted. Mother No problems noted. <KARENA Brian - Last Filed: 03/03/22 16:19> Surgical History: Surgical History History of pubovaginal sling Hx of knee surgery <KARENA Brian - Last Filed: 03/03/22 16:19> Social History: 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 services: Yes (health insurance adjuster) Unable to assess alcohol history related to: Unknown Alcohol intake: never Patient Tobacco Use Status: Never used Tobacco Use of substances other than those prescribed or required for medical reasons: No Advance Directives: No Advance Directives Information Provided: Yes service: No Current occupational status: unemployed and disabled <KARENA Brian - Last Filed: 03/03/22 16:19> Meds Allergies/Adverse reactions: Allergies Allergy/AdvReac Type Severity Reaction Status Date / Time NSAIDS (Non-Steroidal Allergy Unknown Unknown Verified 02/23/22 10:58 Anti-Inflamma <KARENA Brian - Last Filed: 03/03/22 16:19> Active Medications: Current Medications Acetaminophen (Acetaminophen 325 Mg Tablet) 650 mg PO Q6H PRN PRN Reason: Pain, Mild (Pain Scale 1-3) Amiodarone HCl (Amiodarone Hcl 200 Mg Tablet) 100 mg PO DAILY [facility] Atorvastatin Calcium (Atorvastatin Calcium 80 Mg Tablet) 80 mg PO BEDTIME [facility] Carvedilol (Carvedilol 6.25 Mg Tablet) 6.25 mg PO BID JOHAN; Protocol Docusate Sodium (Docusate Sodium 100 Mg Capsule) 100 mg PO DAILY PRN PRN Reason: Constipation Loratadine (Loratadine 10 Mg Tablet) 10 mg PO Q2D [facility] Magnesium Oxide (Magnesium Oxide 400 Mg Tablet) 400 mg PO DAILY [facility] Morphine Sulfate (Morphine Sulfate 2 Mg/Ml Cartridge) 2 mg IVPUSH Q4H PRN; Protocol PRN Reason: Pain, Severe (Pain Scale 7-10) Non-Formulary Medication (Calcium Carbonate-Vitamin D3) 1 tab PO BEDTIME [facility] Non-Formulary Medication (Lidocaine-Prilocaine) 1 appl TOPICAL MOWEFR [facility] Ondansetron HCl (Ondansetron Hcl 4 Mg/2 Ml Vial) 4 mg IVPUSH Q8H PRN PRN Reason: Nausea and Vomiting Pharmacy Consult (Consult Rx Perform Med Rec) 1 each MISCELLANE ONCE PRN PRN Reason: Consult order Sevelamer Carbonate (Sevelamer Carbonate Tablet 800 Mg Tablet) 800 mg PO TID [facility] Sodium Chloride (0.9 % Sodium Chloride Flush 3 Ml Syringe) 3 ml IVFLUSH QSHIFT [facility] <KARENA Brian - Last Filed: 03/03/22 16:19> Home medications: Home Medications Medication Instructions Recorded Confirmed Last Taken Type atorvastatin 80 mg tablet 80 mg PO BEDTIME 04/20/20 03/03/22 03/02/22 History calcium carbonate 600 mg-vitamin 1 tab PO BEDTIME 05/10/21 03/03/22 03/02/22 History D3 10 mcg (400 unit) tablet loratadine 10 mg tablet 10 mg PO Q2D 05/10/21 03/03/22 03/02/22 History acetaminophen 325 mg tablet 650 mg PO Q4H PRN Pain (Scale 01/30/22 03/03/22 Unknown History Score 1-3) lidocaine-prilocaine 2.5 %-2.5 % 1 appl topical MOWEFR prior to 01/30/22 03/03/22 Unknown History topical cream dialysis sevelamer carbonate 800 mg tablet 1 tab PO TID 01/30/22 03/03/22 03/02/22 History <KARENA Brian - Last Filed: 03/03/22 16:19> Physical Exam Vital Signs and Narrative: Vital Signs: Last Vital Signs Temp 97.6 F 03/03/22 10:00 Pulse 71 03/03/22 10:00 Resp 17 03/03/22 10:00 BP 135/65 03/03/22 10:00 Pulse Ox 96 03/03/22 10:00 O2 Del Method 03/03/22 10:00 BMI result Body Mass Index 23.4 <KARENA Brian - Last Filed: 03/03/22 16:19> Const: General: cooperative, comfortable, no acute distress, alert and awake <KARENA Brian - Last Filed: 03/03/22 16:19> Nutritional Appearance: thin <KARENA Brian - Last Filed: 03/03/22 16:19> Orientation/consciousness: patient oriented x3 <KARENA Brian - Last Filed: 03/03/22 16:19> Resp: Other: crackles left base, right lung clear <KARENA Brian - Last Filed: 03/03/22 16:19> Effort & Inspection: normal respiratory effort and able to speak in complete sentences <KARENA Brian - Last Filed: 03/03/22 16:19> Cardio: Rate: regular rate <KARENA Brian - Last Filed: 03/03/22 16:19> Heart sounds: S1 normal heart sound present and S2 normal heart sound present <KARENA Brian - Last Filed: 03/03/22 16:19> GI: Other: mild periumbilical/epigastric tenderness; guarding, no rebound, no distention. Positive bowel sounds <KARENA Brian - Last Filed: 03/03/22 16:19> Inspection: No distended <KARENA Brian - Last Filed: 03/03/22 16:19> Palpation (GI): Soft to palpation <KARENA Brian - Last Filed: 03/03/22 16:19> Neuro: General: patient oriented x3 and CN's II-XI intact bilaterally <KARENA Brian - Last Filed: 03/03/22 16:19> Extrem: Other: Able to move all 4 extremities spontaneously. No pedal edema <KARENA Brian - Last Filed: 03/03/22 16:19> Results Labs CBC and Chem 7: : 03/03/22 07:30 03/03/22 08:27 <KARENA Brian - Last Filed: 03/03/22 16:19> Labs: Laboratory Results - last 24 hr 03/03/22 03/03/22 03/03/22 07:29 07:30 07:30 MCV 89.3 MCH 27.3 MCHC 30.6 L RDW 16.5 H Plt Count 113 L MPV 9.5 Immature Gran % (Auto) 0.4 Neut % (Auto) 65.7 Lymph % (Auto) 24.0 [place] % (Auto) 8.6 Eos % (Auto) 1.1 Baso % (Auto) 0.2 Lymph # (Auto) 1.1 L [place] # (Auto) 0.4 Eos # (Auto) 0.1 Baso # (Auto) 0.0 Abs Immat Gran (auto) 0.02 Absolute Neuts (auto) 3.0 Absolute Nucleated RBC 0.000 Nucleated RBC % (auto) 0.0 PT 16.4 H INR 1.4 H Anion Gap Estim Creat Clear Calc Estimated GFR Random Glucose Lactic Acid Calcium Magnesium Total Bilirubin Direct Bilirubin AST ALT Alkaline Phosphatase Troponin I High Sens 15.2 Total Protein Albumin Lipase COVID-19 ([facility]) COVID-19 Clin Com 03/03/22 03/03/22 03/03/22 07:30 07:42 08:27 MCV MCH MCHC RDW Plt Count MPV Immature Gran % (Auto) Neut % (Auto) Lymph % (Auto) [place] % (Auto) Eos % (Auto) Baso % (Auto) Lymph # (Auto) [place] # (Auto) Eos # (Auto) Baso # (Auto) Abs Immat Gran (auto) Absolute Neuts (auto) Absolute Nucleated RBC Nucleated RBC % (auto) PT INR Anion Gap 20 Estim Creat Clear Calc 4.9 Estimated GFR 6 Random Glucose 113 Lactic Acid 1.3 Calcium 8.6 Magnesium 2.2 Total Bilirubin 0.7 Direct Bilirubin 0.2 AST 21 ALT 9 Alkaline Phosphatase 165 H D Troponin I High Sens Total Protein 7.3 Albumin 3.2 L Lipase 201 H COVID-19 ([facility]I) Negative COVID-19 Clin Com See Note <KARENA Brian - Last Filed: 03/03/22 16:19> Imaging Radiologist's Impressions: Impressions Chest X-Ray 03/03/22 08:16 FINDINGS/IMPRESSION: The study is limited by portable technique, low lung volumes, and pulse generator ejecting over the left costophrenic angle. Mild diffuse interstitial prominence. It is uncertain whether this represents artifactual crowding of the interstitium related to suboptimal inspiration versus true infiltrate, although the former is favored. The findings appear similar compared with January 29, 2022. No focal infiltrate, effusion, or pneumothorax is appreciated. The cardiac silhouette is poorly evaluated. The tip of a left subclavian pulse generator device lead projects over the right ventricle. The mediastinum and diaphragm appear unremarkable. A metallic stent projects over the expected location of the right axillary and proximal brachial vessels. There are mild degenerative changes of the spine, with mild spinal curvature. Abdomen Ultrasound 03/03/22 08:30 IMPRESSION: Cholelithiasis and gallbladder sludge. Otherwise unremarkable right upper quadrant ultrasound examination. <KARENA Brian - Last Filed: 03/03/22 16:19> Assessment and Plan (1) Abdominal pain: Qualifiers: Abdominal location: right upper quadrant Qualified Code(s): R10.11 - Right upper quadrant pain <KARENA Brian - Last Filed: 03/03/22 16:19> Status: Acute <KARENA Brian Last Filed: 03/03/22 16:19> 71-year-old female with a past medical history of hypertension, hyperlipidemia, CAD, CHF status post AICD, paroxysmal AFib on Eliquis, history of ventricular tachycardia, ESRD on hemodialysis presented to the hospital with chief complaint of? neck, back pain and right upper quadrant abdominal discomfort, without associated fever chills cough or sputum production, an abdominal us showed colilithiasis with gallbladder wall thickening with adjacent inflammation concerning for cholecystitis ,? labs showed elevated LFTs abdominal pain US showing cholelithiasis with gallbladder sludge but no gallbladder wall thickening. Two previous admissions for acute cholecystitis. Positive MRCP and HIDA scan on previous admission no fevers, normal WBC LFTs within normal limits clear liquids, will advance diet as tolerated. if recurrent pain, may need to consider CCY on sunday surgery following pain control VT s/p AICD/CAD/chronic diastolic CHF? no exacerbation, echo from last year showed EF 45-50%. no chest pain seen by cardiology in January, documented to be at least intermediate risk if surgical intervention is required ESRD on hemodialysis? gets hemodialysis Sunday and Sunday, did not have HD today no respiratory distress at this time will consult? Nephrology paroxysmal atrial fibrillation continue amiodarone and hold Eliquis hypertension? continue Coreg hyperlipidemia hold statins DVT prophylaxis with compression boots. Eliquis on hold code status - full code HCP - daughter - Bridget Beck attending - dr. eden <KARENA Brian - Last Filed: 03/03/22 16:19> 71-year-old female with a past medical history of hypertension, hyperlipidemia, CAD, CHF status post AICD, paroxysmal AFib on Eliquis, history of ventricular tachycardia, ESRD on hemodialysis presented to the hospital with chief complaint of? neck, back pain and right upper quadrant abdominal discomfort, without associated fever chills cough or sputum production, an abdominal us showed colilithiasis with gallbladder wall thickening with adjacent inflammation concerning for cholecystitis ,? labs showed elevated LFTs abdominal pain US showing cholelithiasis with gallbladder sludge but no gallbladder wall thickening. Two previous admissions for acute cholecystitis. Positive MRCP and HIDA scan on previous admission no fevers, normal WBC LFTs within normal limits clear liquids, will advance diet as tolerated. if recurrent pain, may need to consider CCY on sunday surgery following pain control VT s/p AICD/CAD/chronic diastolic CHF? no exacerbation, echo from last year showed EF 45-50%. no chest pain seen by cardiology in January, documented to be at least intermediate risk if surgical intervention is required ESRD on hemodialysis? gets hemodialysis Sunday and Sunday, did not have HD today no respiratory distress at this time will consult? Nephrology paroxysmal atrial fibrillation continue amiodarone and hold Eliquis hypertension? continue Coreg hyperlipidemia hold statins DVT prophylaxis with compression boots. Eliquis on hold code status - full code HCP - daughter - Bridget Beck attending - dr. eden Addendum to history and physical by mid-level provider, KARENA Tom I interviewed and examined the patient. I discussed their presentation and management with the mid-level provider. I reviewed the history and physical and agree with the documentation, with the following additions and corrections: 71yo F with HTN/HLD/CAD/CHF/VT s/p AICD/pAF on apixaban/ESRD on HD c/o RUQ discomfort which is currently improved hx cholecystitis manamged medically due to high surgical risk now US shows cholelithiasisi with GB sludge but no GB wall thickening and no pericholecystic fluid WBCs normal, no fevers RUQ tender but no rebound/guarding plan admit, CLD/ADAT, surg consult <Reagan Eden MD - Last Filed: 03/03/22 17:10> Quality Stroke Does the patient have a stroke diagnosis?: No <KARENA Brian - Last Filed: 03/03/22 16:19> VTE Prior VTE?: No <KARENA Brian - Last Filed: 03/03/22 16:19> VTE Risk Level:: Medical - moderate - high <KARENA Brian - Last Filed: 03/03/22 16:19> VTE Device Contraindication: N/A - Device Ordered <KARENA Brian - Last Filed: 03/03/22 16:19> VTE Drug Contraindication: Treatment Not Indicated <KARENA Brian - Last Filed: 03/03/22 16:19>
[2022-03-03] MEDS: Loratadine 10 MG TABLET PO (17:58)
[2022-03-03] MEDS: 0.9 % Sodium Chloride Flush 3 ML SYRINGE IVFLUSH (17:59)
[2022-03-03 18:25] VITALS: BP 130/63; PULSE 76; RESP 17; TEMP 36.9; O2SAT 94
[2022-03-03] MEDS: carvediloL 6.25 MG TABLET PO (21:40)
[2022-03-03] MEDS: Calcium + Vitamin D 250 MG TABLET 500 MG PO (21:40)
[2022-03-03] MEDS: Sevelamer Carbonate Tablet 800 MG TABLET PO (21:40)
[2022-03-04 00:25] VITALS: BP 120/57; PULSE 69; RESP 19; TEMP 37.4; O2SAT 93
[2022-03-04] MEDS: 0.9 % Sodium Chloride Flush 3 ML SYRINGE IVFLUSH ×2 (00:43→15:27)
--- NOTE | 2022-03-04 02:01 | PC.NURSE ---
Pt sleeping O2 sat 85% RA. Pt awaken and repositioned and started on 2L NC. O2 sat 99% on 2L nc. Breaths are even and unlabored with equal chest rises. No apparent distress noted.
[2022-03-04 04:37] VITALS: BP 116/57; PULSE 67; RESP 18; O2SAT 97
--- NOTE | 2022-03-04 06:08 | PC.NURSE ---
pt sleeping comfortably on stretcher. no respiratory distress. call renteria within reach will continue to monitor
[2022-03-04 06:30] LABS: Hematocrit 32.2 % (37.0-47.0); Hemoglobin 9.8 g/dl (12.0-16.0); Mean Corpuscular HGB Conc 30.4 g/dl (31.0-35.0); Mean Corpuscular Hemoglobin 27.5 pg (27.0-33.0); Mean Corpuscular Volume 90.4 fL (80.0-98.0); Mean Platelet Volume 10.3 fL (9.4-12.3); Platelet Count 95 X10*3/uL (160-400); Red Blood Count 3.56 X10*6/uL (4.20-5.50); White Blood Count 5.9 X10*3/uL (4.8-10.8)
[2022-03-04 06:59] LABS: Anion Gap 18 (12-20); Blood Urea Nitrogen 52 mg/dL (9-16); Calcium 8.1 mg/dL (8.4-10.2); Carbon Dioxide 25 mmol/L (22-29); Chloride 100 mmol/L (96-108); Creatinine Clr Calc Pharmacy 4.1; Estimated Glomerular Filt Rate 4; Glucose Random 80 mg/dL (60-115); Potassium 5.9 mmol/L (3.3-5.1); Sodium 137 mmol/L (135-145)
[2022-03-04 08:59] LABS: Alanine Aminotransferase 7 U/L (0-31); Albumin Level 2.8 g/dL (3.5-5.0); Aspartate Amino Transferase 16 U/L (5-31); Bilirubin Direct 0.3 mg/dL (0.0-0.5); Bilirubin Total 0.8 mg/dL (0.0-1.0); Total Protein 6.3 g/dL (6.5-8.0)
[2022-03-04 09:36] LABS: Alkaline Phosphatase 124 U/L (39-117)
--- NOTE | 2022-03-04 10:33 | PC.NURSE ---
Report given to this RN by BRICE Schmitz RN. However, patient currently not on the floor and at dialysis at this time. Unable to assess patient or give medications at this time.
[2022-03-04 14:41] VITALS: BP 127/59; PULSE 77; RESP 18; TEMP 36.6; O2SAT 97
--- NOTE | 2022-03-04 15:17 | PM.DS ---
DS: Providers Provider Date of Service: 03/04/22 Date of admission: 03/03/22 15:51 Date of discharge: 03/04/22 Primary care physician: Christiane Vernon MD Consults: 03/03/22 15:59 Consult to Nephrology Routine Consulting Provider: Wilfrido Cain Reason for consultation: HD MWF, did not have HD today Has provider been notified: No Attending physician on discharge: Josee Baig Discharging clinician: Christiane Tom DS: Diagnosis Discharge Diagnosis (1) Abdominal pain: Status: Acute DS: Summary Hospital Course Hospital Course: From H&P on day of admission ?This is a 71-year-old Kiswahili-speaking female with multiple medical issues who presents to the emergency department today with complaints of abdominal pain.? Patient was admitted the end of January twice for concern over acute cholecystitis.? Most recently she was discharged on February 09 after being medically managed for cholecystitis with IV antibiotics.? MRCP and HIDA scan were consistent with acute cholecystitis with the patient's symptoms resolved in her abdominal exam was benign.? She was seen in follow-up outpatient with surgery and the patient wanted to avoid surgery if possible.? Last night around midnight she began having sudden onset of 10/10 epigastric/periumbilical abdominal pain.? This was associated with 1 episode of vomiting.? She denies any associated fever, chills, diarrhea.? She denies any pain with eating food.? Her pain improved to a 2/10 with administration of pain medication in the emergency department.? Repeat ultrasound obtained today shows cholelithiasis but no evidence of gallbladder wall thickening.? LFTs were obtained and were within normal limits.? Patient is afebrile.? Patient was seen in consultation by surgery who recommended to admit the patient overnight for observation to see if she is able to tolerate a diet Patient was admitted for observation overnight due to abdominal pain and previous medically managed cholecystitis. Her abdominal pain resolved. Her LFTs remained normal. She was seen by General surgery but given her lack of abdominal pain and benign abdominal exam she does require and urgent surgical intervention. She will follow-up with surgery as an outpatient. For end-stage renal disease, she missed hemodialysis on Sunday while she was in the emergency department, she was seen by Nephrology and had dialysis on the day of discharge. Her morning labs showed potassium of 5.9, she received a dose of Kayexalate, and then underwent hemodialysis. She should resume her normal dialysis schedule. Her eliquis was initially held in case of need for surgery but will be resumed on discharge. Time Spent with Patient Time attestation: Total time spent providing and/or coordinating discharge services: Discharge coordination time: Greater than 30 minutes Quality: Safe Use of Opioids Does Pt have an Active Cancer Diagnosis on the Problem List?: No Quality: Stroke Does the patient have a stroke diagnosis?: No Physical Exam Vital Signs: Vital Signs: Last Vital Signs Temp 97.9 F 03/04/22 14:41 Pulse 77 03/04/22 14:41 Resp 18 03/04/22 14:41 BP 127/59 L 03/04/22 14:41 Pulse Ox 97 03/04/22 14:41 O2 Del Method 03/04/22 14:41 O2 Flow Rate 2 03/04/22 04:37 BMI result Body Mass Index 23.4 Const: General: cooperative, comfortable, no acute distress, alert and awake Nutritional Appearance: thin Orientation/consciousness: patient oriented x3 Resp: Other: crackles left base, right lung clear Effort & Inspection: normal respiratory effort and able to speak in complete sentences Cardio: Rate: regular rate Heart sounds: S1 normal heart sound present and S2 normal heart sound present GI: Inspection: No distended Palpation (GI): Soft to palpation and nontender Neuro: General: patient oriented x3 and CN's II-XI intact bilaterally Extrem: Other: Able to move all 4 extremities spontaneously. No pedal edema DS: Data Data Completed and Pending Completed studies during hospitalization [Text1]: Procedures Drainage of Peritoneal Cavity, Percutaneous Approach (05/10/21) Insertion of Infusion Device into Right Internal Jugular Vein, Percutaneous Approach (05/10/21) Insertion of Tunneled Vascular Access Device into Chest Subcutaneous Tissue and Fascia, Percutaneous Approach (05/10/21) Performance of Urinary Filtration, Intermittent, Less than 6 Hours Per Day (02/04/22) Labs on day of discharge: Laboratory Results - last 24 hr 03/04/22 03/04/22 05:39 05:39 WBC 5.9 RBC 3.56 L Hgb 9.8 L Hct 32.2 L MCV 90.4 MCH 27.5 MCHC 30.4 L RDW 17.0 H Plt Count 95 L MPV 10.3 Absolute Nucleated RBC 0.000 Nucleated RBC % (auto) 0.0 Sodium 137 Potassium 5.9 H Chloride 100 Carbon Dioxide 25 Anion Gap 18 BUN 52 H Creatinine 8.69 H* Estim Creat Clear Calc 4.1 Estimated GFR 4 Random Glucose 80 Calcium 8.1 L Total Bilirubin 0.8 Direct Bilirubin 0.3 AST 16 ALT 7 Alkaline Phosphatase 124 H D Total Protein 6.3 L Albumin 2.8 L Preliminary micro results at discharge 03/03/22 07:42 Blood Culture - Preliminary Blood - Venous No growth after 24 hours. 03/03/22 07:28 Blood Culture - Preliminary Blood - Venous No growth after 24 hours. Discharge Plan Discharge Patient Disposition: Home, Self-Care Discharge Diagnosis: Abdominal pain Referrals: Christiane Vernon MD [Primary Care Provider] - 1 Week Bradly Romano MD [Physician] - 1 Week Discharge Medications: Continued carvedilol 6.25 mg tablet 6.25 mg PO BID Qty: 180 1RF amiodarone 200 mg tablet 100 mg PO DAILY Qty: 45 1RF magnesium oxide 400 mg (241.3 mg magnesium) tablet 400 mg PO DAILY Qty: 90 0RF Eliquis 5 mg tablet 5 mg PO BID Qty: 180 3RF loratadine 10 mg tablet 10 mg PO Q2D calcium carbonate-vitamin D3 600 mg-10 mcg (400 unit) tablet 1 tab PO BEDTIME lidocaine-prilocaine 2.5-2.5 % cream 1 appl topical MOWEFR sevelamer carbonate 800 mg tablet 1 tab PO TID acetaminophen 325 mg Tablet 650 mg PO Q4H PRN (Reason: Pain (Scale Score 1-3)) atorvastatin 80 mg tablet 80 mg PO BEDTIME Discharge Orders: Discharge Order (Routine); Ordered 03/04/22 Ordered By: Christiane Tom Activity on Discharge: As tolerated Stand Alone Forms: Patient Portal Discharge page Care Plan Goals: see below Health Concerns: abdominal pain gall stones Plan of Treatment: call to schedule follow up with Dr. Romano for possible elective cholecystectomy Last HD - today 03/04 Assessment: see discharge summary Discharge Date/Time: 03/04/22 18:50
[2022-03-04] MEDS: Amiodarone HCL 200 MG TABLET 100 MG PO (15:27)
[2022-03-04] MEDS: Loratadine 10 MG TABLET PO (15:27)
[2022-03-04] MEDS: Magnesium Oxide 400 MG TABLET PO (15:27)
[2022-03-04] MEDS: Sevelamer Carbonate Tablet 800 MG TABLET PO (15:27)
--- NOTE | 2022-03-04 15:30 | P.PNNP_ITS ---
Subjective Subjective Date of Service: 03/04/22 Principal diagnosis: ESRD Interval history: Seen on HD Physical Exam Vital Signs: Vital Signs: Last Vital Signs Temp 97.9 F 03/04/22 14:41 Pulse 77 03/04/22 14:41 Resp 18 03/04/22 14:41 BP 127/59 L 03/04/22 14:41 Pulse Ox 97 03/04/22 14:41 O2 Del Method 03/04/22 14:41 O2 Flow Rate 2 03/04/22 04:37 BMI result Body Mass Index 23.4 Const: General: cooperative, comfortable, no acute distress, alert and awake Nutritional Appearance: thin Orientation/consciousness: patient oriented x3 Resp: Other: crackles left base, right lung clear Effort & Inspection: normal respiratory effort and able to speak in complete sentences Cardio: Rate: regular rate Heart sounds: S1 normal heart sound present and S2 normal heart sound present GI: Inspection: No distended Palpation (GI): Soft to palpation and no ntender Neuro: General: patient oriented x3 and CN's II-XI intact bilaterally Extrem: Other: Able to move all 4 extremities spontaneously. No pedal edema Objective Data Labs CBC & Chem 7: 03/04/22 05:39 03/04/22 05:39 Labs: Laboratory Results - last 24 hr 03/04/22 03/04/22 05:39 05:39 WBC 5.9 RBC 3.56 L Hgb 9.8 L Hct 32.2 L MCV 90.4 MCH 27.5 MCHC 30.4 L RDW 17.0 H Plt Count 95 L MPV 10.3 Absolute Nucleated RBC 0.000 Nucleated RBC % (auto) 0.0 Sodium 137 Potassium 5.9 H Chloride 100 Carbon Dioxide 25 Anion Gap 18 BUN 52 H Creatinine 8.69 H* Estim Creat Clear Calc 4.1 Estimated GFR 4 Random Glucose 80 Calcium 8.1 L Total Bilirubin 0.8 Direct Bilirubin 0.3 AST 16 ALT 7 Alkaline Phosphatase 124 H D Total Protein 6.3 L Albumin 2.8 L Microbiology Microbiology Results: Microbiology 03/03/22 07:42 Blood - Venous Blood Culture - Preliminary No growth after 24 hours. 03/03/22 07:28 Blood - Venous Blood Culture - Preliminary No growth after 24 hours. Procedures Date of Service Date of Service: 03/04/22 Assessment & Plan Assessment and plan (1) ESRD (end stage renal disease): Status: Acute (2) Abdominal pain: Status: Acute Plan ESRD on HD Abd pain Continue HD Vol Removal as tolerated K PP ? Samuel/c today d/w HD nursing team and medical team Time Spent With Patient Time: Total time spent is greater than 50% in coordination of care (as documented) at patient's floor/unit and/or counseling patient: Progress Note: Quality Stroke Does the patient have a stroke diagnosis?: No
--- NOTE | 2022-03-06 17:54 | CONS_ITS ---
DATE OF SERVICE: 03/04/2022 REASON FOR CONSULTATION: Consult requested by the medical team to evaluate and help in management of patient with ESRD on hemodialysis, presented with abdominal pain. The patient presented to the ER yesterday with complaints as mentioned above. She was admitted in the end of January, had a full workup as there was concern of acute cholecystitis. She was managed with IV antibiotics for her cholecystitis. The patient was apparently followed up in the outpatient setting and wanted to avoid surgery if possible. She started having the pain again and presented to the ER. Renal consult has been requested to help with management of ESRD. REVIEW OF SYSTEMS: As noted above. She did have a history of vomiting. There was no fever, chills. No headache, dizziness. There was no diarrhea. Other systems reviewed negative. PAST MEDICAL HISTORY: History of ESRD, on hemodialysis; history of coronary artery disease; history of gallstones; hypertension; hyperlipidemia; ICD in place; paroxysmal atrial fibrillation; ventricular tachycardia. FAMILY HISTORY: Father is . Mother is also . PAST SURGICAL HISTORY: Patient has history of vaginal sling, history of knee surgery. PERSONAL AND SOCIAL HISTORY: Patient does not drink alcohol, does not smoke or use drugs. ALLERGIES: PATIENT HAS ALLERGIES TO NSAID. MEDICATIONS: As an outpatient, inpatient reviewed. PHYSICAL EXAMINATION: GENERAL: The patient is resting in the bed. Awake, alert, able to follow commands. VITAL SIGNS: Blood pressure was 122/59, pulse 77, afebrile. HEENT: Pupils equal bilaterally to light. No jugular venous distention is noted. NECK: Supple. No thyromegaly is noted. CARDIOVASCULAR SYSTEM: S1, S2 without rub. RESPIRATORY SYSTEM: Air entry decreased in the bases. ABDOMEN: Distended with minimal tenderness in the right hypochondrial area. Bowel sounds are present. EXTREMITIES: No edema. LABORATORY DATA: Done today. WBC is 5.9, hemoglobin 9.8, hematocrit 32.2, platelets are 95. Sodium 137, potassium 5.9, chloride 100, CO2 of 25, BUN 52, creatinine 8.69, calcium 8.1, albumin 2.8. IMPRESSION: 1. A 71-year-old female with end-stage renal disease, on hemodialysis. 2. Hyperkalemia. 3. Abdominal pain with recent acute cholecystitis. 4. Anemia of chronic disease. 5. Hypertension. RECOMMENDATIONS: I have arranged for hemodialysis for the patient at the inpatient dialysis unit. We will dialyze the patient on a 2 potassium bath and remove fluid as tolerated. Abdominal pain is presently being worked up by the medical team. She should be on strict 2 g sodium diet and a fluid restriction. Hematocrit is above 30 and we will hold off on erythropoietin injection for now. Thank you for allowing me to participate in medical management of the patient. MD TANIA Roth/ANDREA / [id number]
== END 2022-03-04 18:50 | disposition home or self-care (01) ==
LOC: HO.ED 13:18 → HO.EDOVER 16:05
PROVIDERS: Admitting Provider Physician Assistant Medical; Emergency Provider Emergency Medicine; PCP Family Medicine; Visit Provider Physician Assistant Medical
DX: R10.11 Right upper quadrant pain (principal); I25.10 Atherosclerotic heart disease of native coronary artery without angina pectoris; R07.89 Other chest pain; R10.9 Unspecified abdominal pain; Z20.822 Contact with and (suspected) exposure to COVID-19; Z79.899 Other long term (current) drug therapy; Z79.01 Long term (current) use of anticoagulants
CPT/HCPCS: 36415; 71045; 76705; 80048; 80076; 83605; 83690; 83735; 84484; 85025; 85027; 85610; 87040; 87635; 93005; 96374; 96376; 99218; 99285; J0696; J2270; J2405

== ENCOUNTER → 2022-03-30 14:01 | Outpatient (BNVA) | payer OTHER, SELFPAY | PROVIDERS: PCP Family Medicine; Visit Provider Surgery | DX: K80.20 Calculus of gallbladder without cholecystitis without obstruction (principal) | CPT/HCPCS: 99212 ==

== ENCOUNTER → 2022-05-16 12:29 | Outpatient (BNVA) | payer OTHER, SELFPAY | PROVIDERS: PCP Family Medicine; Referring Provider Family Medicine; Visit Provider Nurse Practitioner Family | DX: Z45.02 Encounter for adjustment and management of automatic implantable cardiac defibrillator (principal); Z01.810 Encounter for preprocedural cardiovascular examination; I25.5 Ischemic cardiomyopathy; I25.10 Atherosclerotic heart disease of native coronary artery without angina pectoris; I47.20 Ventricular tachycardia, unspecified; I48.0 Paroxysmal atrial fibrillation; I10 Essential (primary) hypertension; E78.5 Hyperlipidemia, unspecified | CPT/HCPCS: 93005; 99212 ==

== ENCOUNTER 2022-05-23 11:08 | Outpatient (REF) | payer OTHER, SELFPAY ==
[2022-05-23 13:20] LABS: TSH reflex Free T4 1.81 uIU/mL (0.32-4.0)
== END 2022-05-23 11:09 | disposition home or self-care (01) ==
LOC: HO.LAB 11:08
PROVIDERS: PCP Family Medicine; Visit Provider Nurse Practitioner Family
DX: I48.0 Paroxysmal atrial fibrillation (principal)
CPT/HCPCS: 36415; 84443

== ENCOUNTER → 2022-05-25 12:40 | Outpatient (BNVA) | payer OTHER, SELFPAY | PROVIDERS: PCP Family Medicine; Visit Provider Surgery | DX: K80.20 Calculus of gallbladder without cholecystitis without obstruction (principal) | CPT/HCPCS: 99212 ==

== ENCOUNTER 2022-09-04 11:30 | Outpatient (REF) | payer OTHER, SELFPAY ==
--- NOTE | ~2022-09-04 | MM_ITS ---
EXAMINATION: MM SCREENING DIGITAL BREAST TOMOSYNTHESIS, BILATERAL CLINICAL INFORMATION: Screening. Asymptomatic. The lifetime risk of breast cancer based on the Tyrer-Cuzick Model is 2.5%. COMPARISON: Mammography: August 29, 2021 and studies dating back to February 16, 2016 TECHNIQUE: Digital breast tomosynthesis is performed in both the craniocaudal and mediolateral oblique views along with computer-aided detection (CAD). Synthesized 2D images are generated from the tomosynthesis. FINDINGS: The breasts are heterogeneously dense, which may obscure small masses (ACR BI-RADS breast composition Category c). There are no new significant masses, abnormal calcifications, or other abnormalities. MM/MM tomosynthesis screening BI IMPRESSION: No significant changes from prior exam. ASSESSMENT: BI-RADS 1: Negative RECOMMENDATION: Routine annual mammography screening. This patient's information was entered into a reminder system with a target due date for their next mammogram.
== END 2022-09-04 11:31 | disposition home or self-care (01) ==
LOC: HO.MAMMO 11:30
PROVIDERS: PCP Family Medicine; Visit Provider Family Medicine
DX: Z12.31 Encounter for screening mammogram for malignant neoplasm of breast (principal)
CPT/HCPCS: 77063; 77067

== ENCOUNTER 2022-10-10 21:30 | Emergency (ER) | payer OTHER, SELFPAY ==
--- NOTE | ~2022-10-10 | XR_ITS ---
EXAMINATION: XR CHEST CLINICAL INFORMATION: Cough, fever COMPARISON: 03/03/2022 TECHNIQUE: 2 views of the chest were obtained. FINDINGS: Left-sided AICD lead tip overlies the right ventricle. Lung volumes are symmetric. No focal consolidation is seen. No evidence of pneumothorax or significant pleural effusion. Central vasculature appears somewhat prominent, without overt edema. Cardiac silhouette is enlarged for technique. Right axillary stent is noted. No acute osseous findings are seen. XR/XR chest 2V IMPRESSION: No focal consolidation. Prominent central vasculature without overt edema. Enlarged cardiac silhouette.
[2022-10-10 21:38] VITALS: BP 108/58; BP 123/77; PULSE 86; PULSE 89; RESP 20; TEMP 38.2; O2SAT 96; O2SAT 98; BMI 25.0
--- NOTE | 2022-10-10 21:47 | ECG_ITS ---
Test Reason : DIZZINESS Blood Pressure : / mmHG Vent. Rate : 074 BPM Atrial Rate : 074 BPM P-R Int : 194 ms QRS Dur : 104 ms QT Int : 442 ms P-R-T Axes : 003 -48 012 degrees QTc Int : 490 ms Normal sinus rhythm Left axis deviation Inferior infarct , age undetermined Cannot rule out Anterior infarct , age undetermined Abnormal ECG When compared with ECG of 03-MAR-2022 06:59, Inferior infarct is now Present Nonspecific T wave abnormality has replaced inverted T waves in Inferior leads Referred By: Anisa Santana Electronically Signed By:CAMILA VALE MD
--- NOTE | 2022-10-10 21:57 | PC.NURSE ---
Assumed care of pt. Spoke with provider - urine sample not possible as pt does not make urine. Will procede with remainin orders.
[2022-10-10] MEDS: ondansetron HCL 4 MG/2 ML VIAL IVPUSH (22:06)
--- NOTE | 2022-10-10 22:08 | PC.NURSE ---
pt medicated per orders.
[2022-10-10 22:11] LABS: Basophils Percent Auto 0.2 % (0-2); Eosinophils Absolute Auto 0.1 X10*3/uL (0.0-0.4); Eosinophils Percent Auto 1.8 % (0-4); Hematocrit 35.6 % (37.0-47.0); Hemoglobin 10.9 g/dl (12.0-16.0); Imm Gran Abs Auto 0.02 X10*3/uL (0.00-0.03); Imm Gran Pct Auto 0.4 % (0.0-0.4); Lymphocytes Absolute Auto 0.7 X10*3/uL (1.2-4.9); Lymphocytes Percent Auto 14.1 % (20-40); MANUAL DIFF FLAG NO; Mean Corpuscular HGB Conc 30.6 g/dl (31.0-35.0); Mean Corpuscular Hemoglobin 29.4 pg (27.0-33.0); Mean Platelet Volume 10.3 fL (9.4-12.3); Monocytes Absolute Auto 0.6 X10*3/uL (0.1-1.2); Monocytes Percent Auto 12.7 % (2-11); Neutrophils Absolute Auto 3.6 x10*3/uL (2.0-8.3); Neutrophils Percent Auto 70.8 % (45-73); Red Blood Count 3.71 X10*6/uL (4.20-5.50); Red Cell Distribution Width 16.6 % (11.0-16.0); White Blood Count 5.1 X10*3/uL (4.8-10.8)
[2022-10-10 22:12] LABS: Platelet Count 89 X10*3/uL (160-400)
[2022-10-10 22:21] LABS: Lactic Acid 1.3 mmol/L (0.5-2.0)
[2022-10-10 22:30] LABS: Alanine Aminotransferase 22 U/L (0-31); Albumin Level 3.3 g/dL (3.5-5.0); Alkaline Phosphatase 281 U/L (39-117); Anion Gap 17 (12-20); Aspartate Amino Transferase 43 U/L (5-31); Bilirubin Total 1.1 mg/dL (0.0-1.0); Blood Urea Nitrogen 38 mg/dL (9-16); Calcium 8.7 mg/dL (8.4-10.2); Carbon Dioxide 22 mmol/L (22-29); Chloride 103 mmol/L (96-108); Creatinine Clr Calc Pharmacy 6.8; Estimated Glomerular Filt Rate 7; Glucose Random 99 mg/dL (60-115); Potassium 4.7 mmol/L (3.3-5.1); Sodium 137 mmol/L (135-145); Total Protein 7.4 g/dL (6.5-8.0)
--- NOTE | 2022-10-10 22:43 | ED.NAVMDI ---
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 Patient denies any shortness of breath or chest pain/palpitations at this time. Patient states that she is feeling better and no longer nauseous. Related Data Home Medications Medication Instructions Recorded Confirmed atorvastatin 80 mg tablet 80 mg PO BEDTIME 04/20/20 05/25/22 calcium carbonate 600 mg-vitamin 1 tab PO BEDTIME 05/10/21 05/25/22 D3 10 mcg (400 unit) tablet loratadine 10 mg tablet 10 mg PO Q2D 05/10/21 05/25/22 acetaminophen 325 mg tablet 650 mg PO Q4H PRN Pain (Scale 01/30/22 05/25/22 Score 1-3) lidocaine-prilocaine 2.5 %-2.5 % 1 appl topical MOWEFR prior to 01/30/22 05/25/22 topical cream dialysis sevelamer carbonate 800 mg tablet 1 tab PO TID 01/30/22 05/25/22 Previous Rx's Medication Instructions Recorded oxycodone 5 mg tablet 5 mg PO TID PRN pain #10 tabs 03/30/22 magnesium oxide 400 mg (241.3 mg 400 mg PO DAILY #90 tabs 05/01/22 magnesium) tablet apixaban 2.5 mg tablet (Eliquis) 2.5 mg PO BID #60 tabs 05/16/22 carvedilol 3.125 mg tablet 3.125 mg PO BID #60 tabs 05/16/22 amiodarone 200 mg tablet 100 mg PO DAILY #45 tabs 07/25/22 Allergies Allergy/AdvReac Type Severity Reaction Status Date / Time NSAIDS (Non-Steroidal Allergy Unknown Unknown Verified 05/25/22 12:55 Anti-Inflamma Review of Systems Review of Systems: Pertinent positives and negatives as stated in HPI PMFSH Past Medical History Source: nursing notes reviewed Medical History CAD (coronary artery disease) Elevated bilirubin ESRD (end stage renal disease) ESRD (end stage renal disease) on dialysis Gallstones HTN (hypertension) Hyperlipidemia ICD (implantable cardioverter-defibrillator) in place Ischemic cardiomyopathy Paroxysmal atrial fibrillation Ventricular tachycardia Surgical History History of pubovaginal sling Hx of knee surgery Family History Family History Father No problems noted. Mother No problems noted. 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) Unable to assess alcohol history related to: Unknown Alcohol intake: never Patient Tobacco Use Status: Never used Tobacco Smoked in Last 30 Days: No Use of substances other than those prescribed or required for medical reasons: No Advance Directives: No Advance Directives Information Provided: No service: No Current occupational status: unemployed and disabled Physical Exam Vital Signs: Vital Signs: Last Vital Signs Temp 100.0 F 10/10/22 23:48 Pulse 86 10/10/22 21:38 Resp 20 10/10/22 21:38 BP 123/77 10/10/22 21:38 Pulse Ox 96 10/10/22 21:38 O2 Del Method Room Air 10/10/22 21:38 BMI result Body Mass Index 25.0 VITAL SIGNS: Reviewed. GENERAL: Well developed, well nourished, in no acute distress. HEAD: Normocephalic/atraumatic EYES: PERRLA, EOMI EARS: Ext canals without abnormality NOSE: Nares patent bilateral OROPHARYNX: no oral lesions noted, posterior pharynx clear NECK: Supple, no adenopathy LUNGS: Bibasilar rales noted, no tachypnea. SpO2<96> CARDIOVASCULAR: Regular rate and rhythm without noted murmurs ABDOMEN: Soft, non-tender, non-distended with bowel sounds. MUSCULOSKELETAL: No tenderness, deformities, or effusions noted on gross inspection. EXTREMITIES: No cyanosis, clubbing or edema; right AV fistula with thrill and bruit present. SKIN: Inspection of the skin reveals no rashes NEUROLOGIC: Alert and oriented x 4. Strength and sensation to light touch were grossly intact x 4. Medications Administered Discontinued Medications Generic Name Dose Route Start Last Admin Trade Name Dina PRN Reason Stop Dose Admin Acetaminophen 975 mg 10/10/22 22:30 10/10/22 22:48 Acetaminophen 325 Mg Tablet PO 10/10/22 22:31 975 mg ONCE ONE Administration Ondansetron HCl 4 mg 10/10/22 21:47 10/10/22 22:06 Ondansetron Hcl 4 Mg/2 Ml Vial IVPUSH 10/10/22 21:48 4 mg ONCE ONE Administration Medical Decision Making Medical Decision Making MDM Narrative: 72-year-old female with history and clinical presentation of cough, sore throat an sudden onset of nausea and vomiting. I reviewed all investigations and hematologic results are chronically stable, renal function is consistent with recent dialysis, the total bilirubin is noted but on review of prior lab results this is been present previously. Patient had no abdominal pain. On re-evaluation patient reports that she is feeling much better, she ambulated with a steady gait and is rated be discharged home. She did have an elevated temperature for which she received Tylenol, she did receive Zofran for the nausea and vomiting. It is possible that this is viral etiology patient was encouraged to return if she had any new onset recurrence of symptoms. Differential Diagnosis Please see the discussion above Lab Data Please see the discussion above 10/10/22 22:03 10/10/22 22:04 Labs: Lab Results 10/10/22 10/10/22 10/10/22 Range/Units 22:03 22:03 22:04 WBC 5.1 (4.8-10.8) X10*3/uL RBC 3.71 L (4.20-5.50) X10*6/uL Hgb 10.9 L (12.0-16.0) g/dl Hct 35.6 L (37.0-47.0) % MCV 96.0 (80.0-98.0) fL MCH 29.4 (27.0-33.0) pg MCHC 30.6 L (31.0-35.0) g/dl RDW 16.6 H (11.0-16.0) % Plt Count 89 L (160-400) X10*3/uL MPV 10.3 (9.4-12.3) fL Immature Gran % (Auto) 0.4 (0.0-0.4) % Neut % (Auto) 70.8 (45-73) % Lymph % (Auto) 14.1 L (20-40) % Island % (Auto) 12.7 H (2-11) % Eos % (Auto) 1.8 (0-4) % Baso % (Auto) 0.2 (0-2) % Lymph # (Auto) 0.7 L (1.2-4.9) X10*3/uL Island # (Auto) 0.6 (0.1-1.2) X10*3/uL Eos # (Auto) 0.1 (0.0-0.4) X10*3/uL Baso # (Auto) 0.0 (0.0-0.2) X10*3/uL Abs Immat Gran (auto) 0.02 (0.00-0.03) X10*3/uL Absolute Neuts (auto) 3.6 (2.0-8.3) x10*3/uL Absolute Nucleated RBC 0.000 (0.0-0.012) X10*3/uL Nucleated RBC % (auto) 0.0 (0.0-0.2) /100WBC Sodium 137 (135-145) mmol/L Potassium 4.7 D (3.3-5.1) mmol/L Chloride 103 (96-108) mmol/L Carbon Dioxide 22 (22-29) mmol/L Anion Gap 17 (12-20) BUN 38 H (9-16) mg/dL Creatinine 5.76 H* (0.5-1.4) mg/dL Estim Creat Clear Calc 6.8 Estimated GFR 7 Random Glucose 99 (60-115) mg/dL Lactic Acid 1.3 (0.5-2.0) mmol/L Calcium 8.7 D (8.4-10.2) mg/dL Total Bilirubin 1.1 H (0.0-1.0) mg/dL AST 43 H (5-31) U/L ALT 22 (0-31) U/L Alkaline Phosphatase 281 H (39-117) U/L Total Protein 7.4 (6.5-8.0) g/dL Albumin 3.3 L (3.5-5.0) g/dL COVID-19 ([facility]I) (Negative) COVID-19 Clin Com 10/10/22 Range/Units 22:58 WBC (4.8-10.8) X10*3/uL RBC (4.20-5.50) X10*6/uL Hgb (12.0-16.0) g/dl Hct (37.0-47.0) % MCV (80.0-98.0) fL MCH (27.0-33.0) pg MCHC (31.0-35.0) g/dl RDW (11.0-16.0) % Plt Count (160-400) X10*3/uL MPV (9.4-12.3) fL Immature Gran % (Auto) (0.0-0.4) % Neut % (Auto) (45-73) % Lymph % (Auto) (20-40) % Island % (Auto) (2-11) % Eos % (Auto) (0-4) % Baso % (Auto) (0-2) % Lymph # (Auto) (1.2-4.9) X10*3/uL Island # (Auto) (0.1-1.2) X10*3/uL Eos # (Auto) (0.0-0.4) X10*3/uL Baso # (Auto) (0.0-0.2) X10*3/uL Abs Immat Gran (auto) (0.00-0.03) X10*3/uL Absolute Neuts (auto) (2.0-8.3) x10*3/uL Absolute Nucleated RBC (0.0-0.012) X10*3/uL Nucleated RBC % (auto) (0.0-0.2) /100WBC Sodium (135-145) mmol/L Potassium (3.3-5.1) mmol/L Chloride (96-108) mmol/L Carbon Dioxide (22-29) mmol/L Anion Gap (12-20) BUN (9-16) mg/dL Creatinine (0.5-1.4) mg/dL Estim Creat Clear Calc Estimated GFR Random Glucose (60-115) mg/dL Lactic Acid (0.5-2.0) mmol/L Calcium (8.4-10.2) mg/dL Total Bilirubin (0.0-1.0) mg/dL AST (5-31) U/L ALT (0-31) U/L Alkaline Phosphatase (39-117) U/L Total Protein (6.5-8.0) g/dL Albumin (3.5-5.0) g/dL COVID-19 ([facility]I) Negative (Negative) COVID-19 Clin Com See Note Independent Interpretation I performed an independent interpretation of an: EKG Interpretation: Normal sinus rhythm, HR-74, no STEMI, NH this QRS/QTC are borderline Radiology Impression Radiologist Impression: My in interpretation is in agreement with radiology's impression. External Record Review External record reviewed: Prior outpatient labs Discharge Plan Discharge Clinical Impression: Nausea & vomiting Patient Disposition: Home, Self-Care Instructions: Acute Nausea and Vomiting (ED) Additional Instructions: 1. Reanudar todos los medicamentos caseros seg?n lo prescrito. 2. Ely un seguimiento con woodson proveedor de atenci?n primaria ma?marcellus. Regrese a la domingo de emergencias si los s?ntomas empeoran. 1. Resume all home medications as prescribed. 2. Follow-up with your primary care provider tomorrow. Return to the ER for any worsening symptoms. Prescriptions: No Action magnesium oxide 400 mg (241.3 mg magnesium) tablet 400 mg PO DAILY Qty: 90 2RF amiodarone 200 mg tablet 100 mg PO DAILY Qty: 45 1RF loratadine 10 mg tablet 10 mg PO Q2D calcium carbonate-vitamin D3 600 mg-10 mcg (400 unit) tablet 1 tab PO BEDTIME lidocaine-prilocaine 2.5-2.5 % cream 1 appl topical MOWEFR sevelamer carbonate 800 mg tablet 1 tab PO TID acetaminophen 325 mg Tablet 650 mg PO Q4H PRN (Reason: Pain (Scale Score 1-3)) atorvastatin 80 mg tablet 80 mg PO BEDTIME oxycodone 5 mg tablet 5 mg PO TID PRN (Reason: pain) Qty: 10 0RF Rx Instructions: Partial Fill upon patient request. Eliquis 2.5 mg tablet 2.5 mg PO BID Qty: 60 5RF Rx Instructions: Dose reduced - 2.5mg twice daily carvedilol 3.125 mg tablet 3.125 mg PO BID Qty: 60 5RF Rx Instructions: must administer with a meal/food Restarting lower dose - 3.125mg twice daily - Can hold on dialysis days if BP running too low. ( SBP< 100) Referrals: Christiane Vernon MD [Primary Care Provider] - Print Language: Albanian
[2022-10-10] MEDS: Acetaminophen 325 MG TABLET 975 MG PO (22:48)
[2022-10-10 23:16] LABS: COVID-19 Test Negative (Negative); IDNOW Serial# 6674DD1D
[2022-10-10 23:48] VITALS: TEMP 37.8
--- NOTE | 2022-10-11 01:40 | PC.NURSE ---
Pt remains sleeping, easily rousabl, no acute distress at this time, WCTM.
== END 2022-10-11 06:13 | disposition home or self-care (01) ==
PROVIDERS: Emergency Provider Student in an Organized Health Care Education/Training Program; PCP Family Medicine
DX: R11.2 Nausea with vomiting, unspecified (principal); Z20.822 Contact with and (suspected) exposure to COVID-19; I12.0 Hypertensive chronic kidney disease with stage 5 chronic kidney disease or end stage renal disease; N18.6 End stage renal disease; Z99.2 Dependence on renal dialysis; E78.5 Hyperlipidemia, unspecified; I48.0 Paroxysmal atrial fibrillation; Z79.02 Long term (current) use of antithrombotics/antiplatelets; Z79.899 Other long term (current) drug therapy; Z79.01 Long term (current) use of anticoagulants
CPT/HCPCS: 36415; 71046; 80053; 83605; 85025; 87040; 87635; 93005; 96374; 99284; 99285; J2405

== ENCOUNTER → 2022-11-22 23:59 | Outpatient (BNV) | payer OTHER, SELFPAY ==
--- NOTE | 2022-11-27 15:22 | A.OFFVIS_ITS ---
Intake Intake Visit Reasons: Remote HF Monitoring- [employer] Allergies NSAIDS (Non-Steroidal Anti-Inflamma Allergy (Unknown, Verified 11/23/22 13:04) Unknown [facility] Medical History CAD (coronary artery disease) Elevated bilirubin ESRD (end stage renal disease) ESRD (end stage renal disease) on dialysis Gallstones HTN (hypertension) Hyperlipidemia ICD (implantable cardioverter-defibrillator) in place Ischemic cardiomyopathy Paroxysmal atrial fibrillation Ventricular tachycardia Surgical History History of pubovaginal sling Hx of knee surgery Family History Father No problems noted. Mother No problems noted. 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 Heart failure parameters are stable [id number] Cardiac Device Interrogation, cardio physiologic monitor Procedure code (CPT) selection complete Coding Level of Care Code Procedure Only Diagnoses CPT Codes Cardiac Device Check - Cardiac Device 15: [id number] Cardiac Device Interrogation, cardio physiologic monitor ([id number])
== END ==
PROVIDERS: PCP Family Medicine; Visit Provider Internal Medicine Cardiovascular Disease
DX: I48.0 Paroxysmal atrial fibrillation (principal); Z95.810 Presence of automatic (implantable) cardiac defibrillator
CPT/HCPCS: 93297

== ENCOUNTER 2022-11-23 12:52 | Outpatient (AMB) | payer OTHER, SELFPAY ==
[2022-11-23 12:54] VITALS: BP 130/63; PULSE 83; BMI 23.8
--- NOTE | 2022-11-23 12:54 | A.OFFVIS_ITS ---
Intake Vital Signs 11/23/22 12:54 Height 5 ft Weight 122 lb BMI 23.8 BP 130/63 Blood Pressure Location Rt brachial Position Sitting Pulse 83 Intake Visit Reasons: 6 months follow up cholecystitis Intake Note: This patient presents for a six month follow-up assessment for cholecystitis. Patient denies complaints at this time. Freight Rate Specialist Required: Yes Freight Rate Specialist Language: Fusing Furnace Loader Name: Jennifer Information Interpreted: non-clinical & clinical Accompanied by: Self / Same As Patient Allergies NSAIDS (Non-Steroidal Anti-Inflamma Allergy (Unknown, Verified 11/23/22 13:04) Unknown Medication List - Last Reconciled 11/23/22 by Bradly Romano MD acetaminophen 650 mg PO Q4H PRN amiodarone 100 mg (1/2 x 200 mg) PO DAILY apixaban (Eliquis) 2.5 mg PO BID atorvastatin 80 mg PO BEDTIME calcium carbonate-vitamin D3 600 mg-10 mcg (400 unit) 1 tab PO BEDTIME carvedilol 3.125 mg PO BID lidocaine-prilocaine 2.5-2.5 % 1 appl topical MOWEFR loratadine 10 mg PO Q2D magnesium oxide 400 mg PO DAILY oxycodone 5 mg PO TID PRN sevelamer carbonate 1 tab PO TID HPI 6 months follow up cholecystitis HPI Details She is here for follow-up for her gallstones. She had history of cholecystitis last January,. However, this had responded well to antibiotic treatment. She has been doing well since that time. She denies any abdominal pain. She has good oral intake. She has congestive heart failure and is on dialysis for end-stage renal disease. [facility] Medical History CAD (coronary artery disease) Elevated bilirubin ESRD (end stage renal disease) ESRD (end stage renal disease) on dialysis Gallstones HTN (hypertension) Hyperlipidemia ICD (implantable cardioverter-defibrillator) in place Ischemic cardiomyopathy Paroxysmal atrial fibrillation Ventricular tachycardia Surgical History History of pubovaginal sling Hx of knee surgery Family History Father No problems noted. Mother No problems noted. 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) Unable to assess alcohol history related to: Unknown Alcohol intake: never Patient Tobacco Use Status: Never used Tobacco service: No Current occupational status: unemployed and disabled Review of Systems Const Denies chills and Denies fever(s) Card Denies chest pain Resp Denies cough GI Denies abdominal pain Details: On dialysis Physical Exam Vital Signs: Last Vital Signs Pulse 83 11/23/22 12:54 BP 130/63 11/23/22 12:54 BMI result Body Mass Index 23.8 Const Other: Ambulates with a walker, appears frail General: comfortable and no acute distress Resp Effort & Inspection: normal respiratory effort Cardio Other: Has pacemaker Rate: regular rate GI Palpation (GI): Soft to palpation, not firm and nontender Assessment & Plan Assessment & Plan (1) Cholelithiasis: Code(s): K80.20 - Calculus of gallbladder without cholecystitis without obstruction Qualifiers: Biliary obstruction: without biliary obstruction Cholecystitis presence: without cholecystitis Cholelithiasis location: gallbladder Qualified Code(s): K80.20 - Calculus of gallbladder without cholecystitis without obstruction Plan: She has remained asymptomatic. She wants to avoid surgical intervention at this time in view of her multiple medical issues. She has CHF and end-stage renal disease and has relatively for baseline level of function. She seems to be doing well overall. She wants to follow up with me again in about 6 months. Coding Level of Care Code Est Pt Level 3 (40171) Diagnoses Cholelithiasis K80.20 Biliary obstruction: without biliary obstruction Cholecystitis presence: without cholecystitis Cholelithiasis location: gallbladder
== END 2022-11-23 13:11 | disposition home or self-care (01) ==
PROVIDERS: Visit Provider Surgery
DX: K80.20 Calculus of gallbladder without cholecystitis without obstruction (principal)
CPT/HCPCS: 99213

== ENCOUNTER → 2022-11-23 12:52 | Outpatient (BNVA) | payer OTHER, SELFPAY | PROVIDERS: Visit Provider Surgery | DX: K80.20 Calculus of gallbladder without cholecystitis without obstruction (principal) | CPT/HCPCS: 99212 ==

== ENCOUNTER → 2022-12-13 23:59 | Outpatient (BNV) | payer OTHER, SELFPAY ==
--- NOTE | 2022-12-18 12:59 | MHC.OFFVIS ---
Intake Intake Visit Reasons: Remote ICD Check-Biotronik Allergies NSAIDS (Non-Steroidal Anti-Inflamma Allergy (Unknown, Verified 11/23/22 13:04) Unknown [facility] Medical History CAD (coronary artery disease) Elevated bilirubin ESRD (end stage renal disease) ESRD (end stage renal disease) on dialysis Gallstones HTN (hypertension) Hyperlipidemia ICD (implantable cardioverter-defibrillator) in place Ischemic cardiomyopathy Paroxysmal atrial fibrillation Ventricular tachycardia Surgical History History of pubovaginal sling Hx of knee surgery Family History Father No problems noted. Mother No problems noted. 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 ICD function is adequate [id number] Cardiac Interrogation, implant defibrillator w/interim Procedure code (CPT) selection complete Coding Level of Care Code Procedure Only Diagnoses CPT Codes Cardiac Device Check - Cardiac Device 13: [id number] Cardiac Interrogation, implant defibrillator w/interim ([id number])
== END ==
PROVIDERS: PCP Family Medicine; Visit Provider Internal Medicine Cardiovascular Disease
DX: I50.23 Acute on chronic systolic (congestive) heart failure (principal); Z95.810 Presence of automatic (implantable) cardiac defibrillator
CPT/HCPCS: 93295

== ENCOUNTER → 2022-12-25 23:59 | Outpatient (BNV) | payer OTHER, SELFPAY ==
--- NOTE | 2022-12-25 11:14 | MHC.OFFVIS ---
Intake Intake Visit Reasons: Remote HF monitoring- Biotronik Allergies NSAIDS (Non-Steroidal Anti-Inflamma Allergy (Unknown, Verified 11/23/22 13:04) Unknown [facility] Medical History CAD (coronary artery disease) Elevated bilirubin ESRD (end stage renal disease) ESRD (end stage renal disease) on dialysis Gallstones HTN (hypertension) Hyperlipidemia ICD (implantable cardioverter-defibrillator) in place Ischemic cardiomyopathy Paroxysmal atrial fibrillation Ventricular tachycardia Surgical History History of pubovaginal sling Hx of knee surgery Family History Father No problems noted. Mother No problems noted. 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 Heart failure parameters are stable [id number] Cardiac Device Interrogation, cardio physiologic monitor Procedure code (CPT) selection complete Coding Level of Care Code Procedure Only Diagnoses CPT Codes Cardiac Device Check - Cardiac Device 15: [id number] Cardiac Device Interrogation, cardio physiologic monitor ([id number])
== END ==
PROVIDERS: PCP Family Medicine; Visit Provider Internal Medicine Cardiovascular Disease
DX: I50.23 Acute on chronic systolic (congestive) heart failure (principal); Z95.810 Presence of automatic (implantable) cardiac defibrillator
CPT/HCPCS: 93297

== ENCOUNTER → 2023-01-25 23:59 | Outpatient (BNV) | payer OTHER, SELFPAY ==
--- NOTE | 2023-02-05 11:00 | A.OFFVIS_ITS ---
Intake Intake Visit Reasons: Remote HF Monitoring- Biotronik Allergies NSAIDS (Non-Steroidal Anti-Inflamma Allergy (Unknown, Verified 11/23/22 13:04) Unknown [facility] Medical History CAD (coronary artery disease) Elevated bilirubin ESRD (end stage renal disease) ESRD (end stage renal disease) on dialysis Gallstones HTN (hypertension) Hyperlipidemia ICD (implantable cardioverter-defibrillator) in place Ischemic cardiomyopathy Paroxysmal atrial fibrillation Ventricular tachycardia Surgical History History of pubovaginal sling Hx of knee surgery Family History Father No problems noted. Mother No problems noted. 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 services: Yes (stone hand) Unable to assess alcohol history related to: Unknown Alcohol intake: never Patient Tobacco Use Status: Never used Tobacco service: No Current occupational status: unemployed and disabled Office Procedures Cardiac Device Check Cardiac Device Check Details: Remote heart failure report generated 01/25/2023. Heart failure parameters are stable [id number] Cardiac Device Interrogation, cardio physiologic monitor Procedure code (CPT) selection complete Coding Level of Care Code Procedure Only CPT Codes Cardiac Device Check - Cardiac Device 15: [id number] Cardiac Device Interroga tion, cardio physiologic monitor ([id number])
== END ==
PROVIDERS: PCP Family Medicine; Visit Provider Internal Medicine Cardiovascular Disease
DX: I50.23 Acute on chronic systolic (congestive) heart failure (principal); Z95.810 Presence of automatic (implantable) cardiac defibrillator
CPT/HCPCS: 93297

== ENCOUNTER 2023-02-05 12:18 | Outpatient (AMB) | payer OTHER, SELFPAY ==
[2023-02-05 12:45] VITALS: BP 120/72; PULSE 75; BMI 24.4
--- NOTE | 2023-02-05 12:45 | MHC.OFFVIS ---
Intake Vital Signs 02/05/23 12:45 Height 5 ft Weight 124 lb 12.506 oz BMI 24.4 BP 120/72 Blood Pressure Location Lt brachial Position Sitting Pulse 75 Intake Visit Reasons: overdue 6 mth w/ biotronik ck Intake Note: overdue f/u Guitar Instructor Required: Yes Guitar Instructor Language: Metal Casket Maker Name: jessica mae [id number] Allergies NSAIDS (Non-Steroidal Anti-Inflamma Allergy (Unknown, Verified 02/05/23 12:50) Unknown Medication List - Last Reconciled 02/05/23 by Antonieta Barrios NP-C acetaminophen 650 mg PO Q4H PRN amiodarone 100 mg (1/2 x 200 mg) PO DAILY apixaban (Eliquis) 2.5 mg PO BID atorvastatin 80 mg PO BEDTIME calcium carbonate-vitamin D3 600 mg-10 mcg (400 unit) 1 tab PO BEDTIME carvedilol 3.125 mg PO BID doxycycline hyclate 100 mg PO BID lidocaine-prilocaine 2.5-2.5 % 1 appl topical MOWEFR loratadine 10 mg PO Q2D magnesium oxide 400 mg PO DAILY oxycodone 5 mg PO TID PRN sevelamer carbonate 1 tab PO TID HPI overdue 6 mth w/ biotronik ck HPI Details Gabirel is a 72 yo female with PMH of HTN, HLD, CAD with prior PA, Ischemic CMP, NSVT, Biotronic ICD, PAF, TIA, ESRD on dialysis who presents for follow up. Today she reports she has been feeling well overall. She denies any chest discomfort at rest or with activity. She denies shortness of breath, palpitations, presyncope, syncope, falls. No PND, orthopnea. She does have swelling in her left ankle along with ecchymosis in the posterior aspect which she states is from an injury. She describes something heavy falling against her leg. She did go to the clinic last week for evaluation. Since that time it has been improving very slowly. She ambulates steady with her walker. Certified news camera person used. [facility] Medical History Gallstones Elevated bilirubin ESRD (end stage renal disease) on dialysis ESRD (end stage renal disease) Hyperlipidemia HTN (hypertension) CAD (coronary artery disease) Ventricular tachycardia Paroxysmal atrial fibrillation ICD (implantable cardioverter-defibrillator) in place Ischemic cardiomyopathy Surgical History History of pubovaginal sling Hx of knee surgery Family History Father No problems noted. Mother No problems noted. 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) Unable to assess alcohol history related to: Unknown Alcohol intake: never Patient Tobacco Use Status: Never used Tobacco service: No Current occupational status: unemployed and disabled Review of Systems Const All systems reviewed & are unremarkable except as noted in HPI and below ENT Denies dizziness Card Denies chest pain, Denies chest pain at rest, Denies chest pain with activity, Denies rapid heart rate, Denies pedal edema, Denies edema, Denies leg edema, Denies lightheadedness, Denies palpitations, Denies dyspnea, Denies dyspnea on exertion and Denies orthopnea Resp Denies cough, Denies dyspnea and Denies dyspnea on exertion GI Denies hematochezia and Denies change in stool character Musc Reports abnormal gait, Denies limited range of motion, Denies muscle cramps, Reports muscle weakness, Denies numbness, Denies radiating pain into limb, Denies stiffness and Denies tingling Neuro Reports abnormal gait, Denies dizziness, Denies numbness and Denies tingling Endo Denies palpitations Physical Exam Vital Signs: Last Vital Signs Pulse 75 02/05/23 12:45 BP 120/72 02/05/23 12:45 BMI result Body Mass Index 24.4 Const General: cooperative, comfortable and no acute distress Orientation/consciousness: patient oriented x3 Neck Neck: Yes normal visual inspection Resp Effort & Inspection: normal respiratory effort Auscultation: clear to auscultation bilaterally, no crackles, no rales, no rhonchi and no wheezes Cardio Jugular venous distension: no JVD Rate: regular rate Rhythm: regular rhythm Heart sounds: S1 normal heart sound present, S2 normal heart sound present, Murmur heart sound present (systolic murmur noted) and no rubs Neuro General: patient oriented x3 Extrem General: Yes normal to inspection Psych Appearance: grossly normal Mental Status: mental status grossly normal Speech and movement: Normal speech and movement present Office Procedures Cardiac Device Check Cardiac Device Check Details: Algal Scientificronik device check done today by me, single lead ICD, battery 100%, VVI mode, base rate 40, no VT or VF, 0% pacing, 0% atrial burden, threshold testing [place] completed, [place] [id number] Cardiac Device Check, single lead implantable defibrillator Procedure code (CPT) selection complete EKG Details: Today, read by me, sinus rhythm, 1 PVC, possible left atrial enlargement, left axis deviation, anterior PA, age undetermined, rate 75, QTC 402 millisecond [id number], Complete Assessment & Plan Assessment & Plan (1) Ischemic cardiomyopathy: Comment: known prior inferior inferolateral territory myocardial infarction. LVEF was 40-45%. Subsequent admitted with chest discomfort to [facility] in LVEF was noted to be 30-35%. This was in setting of atrial fibrillation and ventricular tachycardia. She subsequently underwent ICD placement for secondary prevention. Echocardiogram December 2019 showed LVEF of 40-45%. Nuclear stress test showed fixed defect consistent with infarction inferior inferolateral wall as before. Code(s): I25.5 - Ischemic cardiomyopathy Plan: Hx of ischemic CMP. Last echo 05/11/21 shows EF 45- 50%, basal inferior mid inferior and basal inferior lateral akinesis which is unchanged from prior. She is not on latasha/ arb due to ESRD and new to dialysis as of April 2021. She was on Hydralazine in the past which was stopped due to low blood pressures. She is on carvedilol for neurohormonal modulation. She is attending dialysis 3 times weekly. She does not appear fluid overloaded on exam today. I do hear what sounds like a systolic murmur on exam. Will update echocardiogram. Cardiology follow-up, 6 month, sooner if needed (2) CAD (coronary artery disease): Comment: nonobstructive CAD with cardiac catheterization showing LAD diffuse irregularity with 1st diagonal 50% stenosis. Manage medically Code(s): I25.10 - Atherosclerotic heart disease of [place] coronary artery without angina pectoris Plan: No reports of anginal sounding symptoms. Continue low dose carvedilol. Continue high-dose atorvastatin. She is not on aspirin as she is on Eliquis. (3) Paroxysmal atrial fibrillation: Code(s): I48.0 - Paroxysmal atrial fibrillation Plan: History of paroxysmal atrial fibrillation. Device interrogation shows No AF. EKG today shows SR , rate 75. Pulse is very regular on examination. No reports of heart palpitations. Continue carvedilol and Amiodarone. She is on Eliquis 2.5 mg bid which is appropriate for her weight and kidney function. No reports of bleeding. Ongoing monitoring for amiodarone toxicity. Labs done 10/10/2022 shows AST 43, ALT 22, labs 05/23/2022 showed TSH 1.81. Chest x-ray 10/10/2022 showed central vasculature prominence, no edema. Currently denying shortness of breath. (4) Ventricular tachycardia: Code(s): I47.2 - Ventricular tachycardia Plan: ICD in place. On amiodarone for rhythm control and carvedilol for rate control. (5) ICD (implantable cardioverter-defibrillator) in place: Comment: Biotronik single-chamber ICD placed at [facility] for sustained VT and LVEF of 30-35%. Code(s): Z95.810 - Presence of automatic (implantable) cardiac defibrillator Plan: Functioning normally on interrogation today. Office visit interrogation due again next visit. Continue home monitoring. (6) HTN (hypertension): Code(s): I10 - Essential (primary) hypertension Qualifiers: Hypertension type: primary hypertension Qualified Code(s): I10 - Essential (primary) hypertension Plan: Well controlled at present time. (7) Hyperlipidemia: Code(s): E78.5 - Hyperlipidemia, unspecified Plan: [place] LDL goal less than 70 and patient with CAD. Continue high-dose atorvastatin. No recent lipid profile in our system Orders: Orders CA echo transthoracic complete Today I50.9 - Heart failure, unspecified, R01.1 - Cardiac murmur, unspecified Coding Level of Care Code Est Pt Level 4 (37835) Diagnoses Ischemic cardiomyopathy I25.5 CAD (coronary artery disease) I25.10 Paroxysmal atrial fibrillation I48.0 Ventricular tachycardia I47.2 ICD (implantable cardioverter-defibrillator) in place Z95.810 Primary hypertension I10 Hypertension type: primary hypertension Hyperlipidemia E78.5 CPT Codes Cardiac Device Check - Cardiac Device 4: [id number] Cardiac Device Check, single lead implantable defibrillator ([id number]) EKG - CPT: 38648-[id number], Complete ([id number]) Time Spent (min) 28
== END 2023-02-05 13:39 | disposition home or self-care (01) ==
PROVIDERS: PCP Family Medicine; Visit Provider Nurse Practitioner Family
DX: I25.5 Ischemic cardiomyopathy (principal); I25.10 Atherosclerotic heart disease of native coronary artery without angina pectoris; I48.0 Paroxysmal atrial fibrillation; I47.20 Ventricular tachycardia, unspecified; Z95.810 Presence of automatic (implantable) cardiac defibrillator; I10 Essential (primary) hypertension; E78.5 Hyperlipidemia, unspecified
CPT/HCPCS: 93282; 99214

== ENCOUNTER → 2023-02-05 12:18 | Outpatient (BNVA) | payer OTHER, SELFPAY | PROVIDERS: PCP Family Medicine; Visit Provider Nurse Practitioner Family | DX: Z45.02 Encounter for adjustment and management of automatic implantable cardiac defibrillator (principal); I25.5 Ischemic cardiomyopathy; I25.10 Atherosclerotic heart disease of native coronary artery without angina pectoris; I47.20 Ventricular tachycardia, unspecified; I48.0 Paroxysmal atrial fibrillation; I10 Essential (primary) hypertension; E78.5 Hyperlipidemia, unspecified | CPT/HCPCS: 93005; 99212 ==

== ENCOUNTER → 2023-02-23 23:59 | Outpatient (BNV) | payer OTHER, SELFPAY ==
--- NOTE | 2023-03-05 08:44 | MHC.OFFVIS ---
Intake Intake Visit Reasons: Remote HF Monitoring- Biotronik Allergies NSAIDS (Non-Steroidal Anti-Inflamma Allergy (Unknown, Verified 02/05/23 12:50) Unknown [facility] Medical History Gallstones Elevated bilirubin ESRD (end stage renal disease) on dialysis ESRD (end stage renal disease) Hyperlipidemia HTN (hypertension) CAD (coronary artery disease) Ventricular tachycardia Paroxysmal atrial fibrillation ICD (implantable cardioverter-defibrillator) in place Ischemic cardiomyopathy Surgical History History of pubovaginal sling Hx of knee surgery Family History Father No problems noted. Mother No problems noted. 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 Heart failure parameters are stable [id number] Cardiac Device Interrogation, cardio physiologic monitor Procedure code (CPT) selection complete Coding Level of Care Code Procedure Only CPT Codes Cardiac Device Check - Cardiac Device 15: [id number] Cardiac Device Interrogation, cardio physiologic monitor ([id number])
== END ==
PROVIDERS: PCP Family Medicine; Visit Provider Internal Medicine Cardiovascular Disease
DX: I25.5 Ischemic cardiomyopathy (principal); Z95.810 Presence of automatic (implantable) cardiac defibrillator
CPT/HCPCS: 93297

== ENCOUNTER → 2023-03-13 09:23 | Outpatient (REF) | payer OTHER, SELFPAY ==
--- NOTE | 2023-03-13 09:27 | CA_ITS ---
Transthoracic Echocardiogram Patient (Last, First, Middle): Gabriel Beck, Gender: Female Date of : 1950 Age: 72 Procedure Date: 03/13/2023 Procedure Type: Transthoracic Echocardiogram Location: OP Height: 152.4 cm Weight: 52.62 kg BSA: 1.48 m2 Heart Rate: bpm BP: 100 / 60 mmHg Coal Tram Driver: MEIR/BORIS Referring MD: Antonieta Barrios EDITOR BOOKBcC Symptoms: R01.1 - Cardiac murmur, unspecified Study Quality: Adequate Conclusions: - The left ventricular systolic function is moderate to severely decreased. The visually estimated ejection fraction is between 30-35%. - The basal inferior, mid inferior, and basal inferolateral segments are akinetic. - Severe biatrial enlargement. - There is moderate mitral annular calcification. There is moderate mitral valve regurgitation. There is moderate mitral valve stenosis. - There is mild to moderate tricuspid valve regurgitation. - Moderate pulmonary hypertension is present. - Large plaque is seen in the sino tubular ridge. Findings Left Ventricle Moderately increased left ventricular cavity size. There is mildly increased left ventricular wall thickness. The left ventricular systolic function is moderate to severely decreased. The visually estimated ejection fraction is between 30-35%. There is evidence of regional wall motion abnormalities. There is severe global hypokinesis. Evidence suggests grade II (moderate) diastolic dysfunction. Wall Motion Rest Echo Findings The basal inferior, mid inferior, and basal inferolateral segments are akinetic. Right Ventricle Mildly increased right ventricular cavity size. There is low normal right ventricular systolic function. There is an ICD wire seen in the right ventricle. Atria Severe biatrial enlargement. Aortic Valve There is a normal trileaflet aortic valve. There is no aortic valve stenosis. There is no aortic valve regurgitation. Mitral Valve There is mild anterior and posterior mitral leaflet thickening. There is moderate mitral annular calcification. There is moderate mitral valve regurgitation. There is moderate mitral valve stenosis. Pulmonic Valve There is mild pulmonic valve regurgitation. Tricuspid Valve There is mild to moderate tricuspid valve regurgitation. The right ventricular systolic pressure is 59 mmHg. Moderate pulmonary hypertension is present. Great Vessels The asc aorta is normal in size. Large plaque is seen in the sino tubular ridge. Venous The inferior vena cava is mildly dilated and collapses less than 50% with inspiration. Pericardium/Pleural There is a small loculated pericardial effusion overlying the left ventricle. Prior Study Comparison Changes noted compared to prior study dated: 05/11/2021. LVEF lower than prior study; progression of valvular heart disease, pulmonary hypertension. Measurements 2D Linear Measurements IVSd: 1.13 0.6-0.9/0.6-1.0 cm LVIDd: 6.14 3.9-5.3/4.2-5.9 cm LVIDd Index: 4.15 2.4-3.2/2.2-3.1 cm/m2 LVIDs: 5.28 2.0-3.6 cm LVPWd: 1.06 0.7-1.1 cm LA Diam: 5.20 2.7-3.8/3.0-4.0 cm LAIDs Index: 3.51 1.5-2.3 cm/m2 LV Mass: 360.40 67-162/88-224 g LV Mass Index: 243.51 43-95/49-115 g/m2 LVOT Diam: 1.90 3.0+(-)1.3 cm 2D Systolic Function EF 4C: 32.70 >55% EF 2C: 37.10 >55% EF BiP: 37.50 >55% Mitral Valve MV VTI: 0.51 MV Pk Ze: 1.99 MV Mn Ze: 1.11 MV Pk Grad: 16.00 MV Mn Grad: 6.00 MV Pk E: 1.62 MV PK A: 0.91 MV Decel Time: 209.00 E/A: 1.80 E'Lateral: 8.59 E'Medial: 4.90 E/E' Med: 33.10 E/E' Lat: 18.90 PHT: 61.00 MVA PHT: 3.61 MVA Continuity: 0.92 Decel Divide: 7.76 MR Vol - PW Dopp: 20.80 MR VTI: 1.60 MR ERO: 13.00 MR Alias Ze: 0.40 MR RAD: 0.50 Aortic Valve AoV Pk Ze: 1.46 AoV Mn Ze: 1.00 AoV VTI: 0.29 AoV Pk Grad: 9.00 Aov Mn Grad: 5.00 GAGE Cont.VTI: 1.64 LVOT LVOT Pk Ze: 1.00 LVOT Mn Ze: 0.61 LVOT VTI: 0.17 LVOT Pk Grad: 4.00 LVOT Mn Grad: 2.00 LVOT Diam: 1.90 LVOT Area: 2.84 Diastolic Function MV Pk E: 1.62 MV Pk A: 0.91 E/A: 1.80 E'Medial: 4.90 E/E' Med: 33.10 E' Laterial: 8.59 E/E' Lat: 18.90 Right Ventricle TAPSE (mm): 18.90 TVS' Ze: 9.57 Tricuspid Valve TR Pk Ze: 3.33 TR Pk Grad: 44.00 RA Press: 15.00 RVSP: 59.00 Great Vessels Aorta Sinus of Valsalva: 3.10 2.0-3.5 cm Ao Asc: 3.60 2.1-3.4 cm Updated in Other Vendor System with Status of Final Lee Lanza MD electronically signed on 03/14/2023 12:55:11 PM with status of Final
== END ==
LOC: HO.CARD 09:23
PROVIDERS: PCP Family Medicine; Visit Provider Nurse Practitioner Family
DX: R01.1 Cardiac murmur, unspecified (principal); I50.9 Heart failure, unspecified
CPT/HCPCS: 93306

== ENCOUNTER → 2023-03-13 23:59 | Outpatient (BNV) | payer OTHER, SELFPAY ==
--- NOTE | 2023-03-13 11:14 | MHC.OFFVIS ---
Intake Intake Visit Reasons: Remote HF Monitoring- Biotronik Allergies NSAIDS (Non-Steroidal Anti-Inflamma Allergy (Unknown, Verified 02/05/23 12:50) Unknown [facility] Medical History Gallstones Elevated bilirubin ESRD (end stage renal disease) on dialysis ESRD (end stage renal disease) Hyperlipidemia HTN (hypertension) CAD (coronary artery disease) Ventricular tachycardia Paroxysmal atrial fibrillation ICD (implantable cardioverter-defibrillator) in place Ischemic cardiomyopathy Surgical History History of pubovaginal sling Hx of knee surgery Family History Father No problems noted. Mother No problems noted. 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 Heart failure parameters are stable [id number] Cardiac Device Interrogation, cardio physiologic monitor Procedure code (CPT) selection complete Coding Level of Care Code Procedure Only CPT Codes Cardiac Device Check - Cardiac Device 15: [id number] Cardiac Device Interrogation, cardio physiologic monitor ([id number])
== END ==
PROVIDERS: PCP Family Medicine; Visit Provider Internal Medicine Cardiovascular Disease
DX: I34.2 Nonrheumatic mitral (valve) stenosis (principal); I36.1 Nonrheumatic tricuspid (valve) insufficiency
CPT/HCPCS: 93297; 93306

== ENCOUNTER → 2023-03-15 23:59 | Outpatient (BNV) | payer OTHER, SELFPAY ==
--- NOTE | 2023-03-15 15:50 | MHC.OFFVIS ---
Intake Intake Visit Reasons: Remote ICD Check- Biotronik Allergies NSAIDS (Non-Steroidal Anti-Inflamma Allergy (Unknown, Verified 02/05/23 12:50) Unknown [facility] Medical History Gallstones Elevated bilirubin ESRD (end stage renal disease) on dialysis ESRD (end stage renal disease) Hyperlipidemia HTN (hypertension) CAD (coronary artery disease) Ventricular tachycardia Paroxysmal atrial fibrillation ICD (implantable cardioverter-defibrillator) in place Ischemic cardiomyopathy Surgical History History of pubovaginal sling Hx of knee surgery Family History Father No problems noted. Mother No problems noted. 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 ICD function [id number] Cardiac Interrogation, implant defibrillator w/interim Procedure code (CPT) selection complete Coding Level of Care Code Procedure Only CPT Codes Cardiac Device Check - Cardiac Device 13: [id number] Cardiac Interrogation, implant defibrillator w/interim ([id number])
== END ==
PROVIDERS: PCP Family Medicine; Visit Provider Internal Medicine Cardiovascular Disease
DX: I25.5 Ischemic cardiomyopathy (principal); Z95.810 Presence of automatic (implantable) cardiac defibrillator
CPT/HCPCS: 93295

== ENCOUNTER → 2023-04-13 23:59 | Outpatient (BNV) | payer OTHER, SELFPAY ==
--- NOTE | 2023-04-17 12:08 | A.OFFVIS_ITS ---
Intake Intake Visit Reasons: Remote HF Monitoring- Biotronik Allergies NSAIDS (Non-Steroidal Anti-Inflamma Allergy (Unknown, Verified 02/05/23 12:50) Unknown [facility] Medical History Gallstones Elevated bilirubin ESRD (end stage renal disease) on dialysis ESRD (end stage renal disease) Hyperlipidemia HTN (hypertension) CAD (coronary artery disease) Ventricular tachycardia Paroxysmal atrial fibrillation ICD (implantable cardioverter-defibrillator) in place Ischemic cardiomyopathy Surgical History History of pubovaginal sling Hx of knee surgery Family History Father No problems noted. Mother No problems noted. 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 Heart failure parameters are stable [id number] Cardiac Device Interrogation, cardio physiologic monitor Procedure code (CPT) selection complete Assessment & Plan Assessment & Plan (1) ICD (implantable cardioverter-defibrillator) in place: Comment: Biotronik single-chamber ICD placed at [facility] for sustained VT and LVEF of 30-35%. Code(s): Z95.810 - Presence of automatic (implantable) cardiac defibrillator Plan Continue current treatment Coding Level of Care Code Procedure Only Diagnoses ICD (implantable cardioverter-defibrillator) in place Z95.810 CPT Codes Cardiac Device Check - Cardiac Device 15: [id number]-[id number] Cardiac Device Interrog ation, cardio physiologic monitor ([id number])
== END ==
PROVIDERS: PCP Family Medicine; Visit Provider Internal Medicine Cardiovascular Disease
DX: I50.23 Acute on chronic systolic (congestive) heart failure (principal); Z95.810 Presence of automatic (implantable) cardiac defibrillator
CPT/HCPCS: 93297

== ENCOUNTER → 2023-05-16 23:59 | Outpatient (BNV) | payer OTHER, SELFPAY ==
--- NOTE | 2023-05-16 09:55 | MHC.OFFVIS ---
Intake Intake Visit Reasons: Remote HF Monitoring- Biotronik Allergies NSAIDS (Non-Steroidal Anti-Inflamma Allergy (Unknown, Verified 02/05/23 12:50) Unknown [facility] Medical History Gallstones Elevated bilirubin ESRD (end stage renal disease) on dialysis ESRD (end stage renal disease) Hyperlipidemia HTN (hypertension) CAD (coronary artery disease) Ventricular tachycardia Paroxysmal atrial fibrillation ICD (implantable cardioverter-defibrillator) in place Ischemic cardiomyopathy Surgical History History of pubovaginal sling Hx of knee surgery Family History Father No problems noted. Mother No problems noted. 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 Heart failure parameters are stable [id number] Cardiac Device Interrogation, cardio physiologic monitor Procedure code (CPT) selection complete Assessment & Plan Assessment & Plan (1) ICD (implantable cardioverter-defibrillator) in place: Comment: Biotronik single-chamber ICD placed at [facility] for sustained VT and LVEF of 30-35%. Code(s): Z95.810 - Presence of automatic (implantable) cardiac defibrillator Plan: See above Coding Level of Care Code Procedure Only Diagnoses ICD (implantable cardioverter-defibrillator) in place Z95.810 CPT Codes Cardiac Device Check - Cardiac Device 15: [id number] Cardiac Device Interrogation, cardio physiologic monitor ([id number])
== END ==
PROVIDERS: PCP Family Medicine; Visit Provider Internal Medicine Cardiovascular Disease
DX: I25.5 Ischemic cardiomyopathy (principal); Z95.810 Presence of automatic (implantable) cardiac defibrillator
CPT/HCPCS: 93297

== ENCOUNTER 2023-06-07 14:07 | Outpatient (AMB) | payer OTHER, SELFPAY ==
--- NOTE | 2023-06-07 14:14 | A.OFFVIS_ITS ---
Intake Vital Signs 06/07/23 14:22 Height 5 ft Weight 120 lb BMI 23.4 BP 124/63 Blood Pressure Location Lt brachial Position Sitting Pulse 75 Intake Visit Reasons: 6 months follow up cholecystitis Intake Note: This patient presents for a six month follow-up assessment for cholecystitis. Pt c/o; reports no complaints at this time. Roller Skates Assembler Required: Yes Roller Skates Assembler Language: Education Courses Sales Representative Name: Jennifer Information Interpreted: non-clinical & clinical Accompanied by: Self / Same As Patient Allergies NSAIDS (Non-Steroidal Anti-Inflamma Allergy (Unknown, Verified 06/07/23 14:23) Unknown Medication List - Last Reconciled 06/07/23 by Bradly Romano MD acetaminophen 650 mg PO Q4H PRN amiodarone 100 mg (1/2 x 200 mg) PO DAILY apixaban (Eliquis) 2.5 mg PO BID atorvastatin 80 mg PO BEDTIME calcium carbonate-vitamin D3 600 mg-10 mcg (400 unit) 1 tab PO BEDTIME carvedilol 3.125 mg PO BID doxycycline hyclate 100 mg PO BID lidocaine-prilocaine 2.5-2.5 % 1 appl topical MOWEFR loratadine 10 mg PO Q2D magnesium oxide 400 mg PO DAILY oxycodone 5 mg PO TID PRN sevelamer carbonate 1 tab PO TID HPI 6 months follow up cholecystitis HPI Details She is here for follow-up because of her history of cholecystitis last year. She says she has had no abdominal pain at all for several months now. She feels well overall. She has good oral intake. [facility] Medical History Gallstones Elevated bilirubin ESRD (end stage renal disease) on dialysis ESRD (end stage renal disease) Hyperlipidemia HTN (hypertension) CAD (coronary artery disease) Ventricular tachycardia Paroxysmal atrial fibrillation ICD (implantable cardioverter-defibrillator) in place Ischemic cardiomyopathy Surgical History History of pubovaginal sling Hx of knee surgery Family History Father No problems noted. Mother No problems noted. 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) Unable to assess alcohol history related to: Unknown Alcohol intake: never Patient Tobacco Use Status: Never used Tobacco service: No Current occupational status: unemployed and disabled Review of Systems Const Denies chills and Denies fever(s) Card Denies chest pain, Denies dyspnea and Reports dyspnea on exertion Resp Denies cough, Denies dyspnea and Reports dyspnea on exertion GI Denies hematochezia and Denies change in bowel habits Denies hematuria Musc Denies back pain and Denies limited range of motion Neuro Denies focal weakness and Denies convulsions Psych Denies depression and Denies mood swings Physical Exam Vital Signs: Last Vital Signs Pulse 75 06/07/23 14:22 BP 124/63 06/07/23 14:22 BMI result Body Mass Index 23.4 Const Other: Using a walker General: no acute distress Resp Effort & Inspection: normal respiratory effort GI Palpation (GI): Soft to palpation, not firm and nontender Assessment & Plan Assessment & Plan (1) Cholelithiasis: Code(s): K80.20 - Calculus of gallbladder without cholecystitis without obstruction Qualifiers: Biliary obstruction: without biliary obstruction Cholecystitis presence: without cholecystitis Cholelithiasis location: gallbladder Qualified Code(s): K80.20 - Calculus of gallbladder without cholecystitis without obstruction Plan: She had a question of cholecystitis last year. She wanted to avoid surgery because of her CHF and acute renal failure. She says she has had no episode of pain for several months now. She feels well overall. She would like to hold off on cholecystectomy She can follow up with us on a p.r.n. basis Coding Level of Care Code Est Pt Level 3 (69483) Diagnoses Cholelithiasis K80.20 Biliary obstruction: without biliary obstruction Cholecystitis presence: without cholecystitis Cholelithiasis location: gallbladder
[2023-06-07 14:22] VITALS: BP 124/63; PULSE 75; BMI 23.4
== END 2023-06-07 14:28 | disposition home or self-care (01) ==
PROVIDERS: PCP Family Medicine; Visit Provider Surgery
DX: K80.20 Calculus of gallbladder without cholecystitis without obstruction (principal)
CPT/HCPCS: 99213

== ENCOUNTER → 2023-06-07 14:07 | Outpatient (BNVA) | payer OTHER, SELFPAY | PROVIDERS: PCP Family Medicine; Visit Provider Surgery | DX: K80.20 Calculus of gallbladder without cholecystitis without obstruction (principal) | CPT/HCPCS: 99212 ==

== ENCOUNTER 2023-06-10 21:24 | Emergency (ER) | payer OTHER, SELFPAY ==
--- NOTE | ~2023-06-10 | XR_ITS ---
EXAMINATION: XR CHEST CLINICAL INFORMATION: Fluid. Cough. COMPARISON: 10/10/2022 TECHNIQUE: Frontal view of the chest was obtained. FINDINGS: Left pectoral AICD with leads terminating in the right ventricular apex. Cardiac silhouette appears enlarged, unchanged. There is slight prominence of the pulmonary vasculature with cephalization. No consolidation. No pulmonary interstitial edema. No pneumothorax or pleural effusion. Degenerative spondylosis is present of the thoracic spine. No acute osseous findings. XR/XR chest 1V IMPRESSION: Cardiomegaly with mild pulmonary venous congestion. No pulmonary edema, focal airspace consolidation, or pleural effusions.
[2023-06-10 21:41] VITALS: BP 143/75; PULSE 83; RESP 14; TEMP 38.1; O2SAT 95
--- NOTE | 2023-06-10 21:42 | MHC.EDTECH ---
This Tech assumed care of this PT upon arrival. Pt changed into a hospital gown and placed onto a cardiac montior. VS completed and temp reported to BUD Rutledge.
[2023-06-10 21:43] VITALS: BP 140/70; BP 143/75; PULSE 82; PULSE 85; RESP 17; TEMP 38.1; O2SAT 95; O2SAT 97; BMI 24.3
--- NOTE | 2023-06-10 21:44 | MHC.EDTECH ---
NO BP OR BLoodwork on RIGHT SIDE. PT has fistula on right arm Precaution sign hung
--- NOTE | 2023-06-10 21:46 | PC.NURSE ---
Pt presents to ED with weakness starting tonight. Pt stated she tried to stand up and was too weak. Pt also endorses nausea and minor vomiting. Pt was able to eat tonight. Pt is turkmen speaking only, and has a fistula in the right arm. Labs being drawn at this time, pt waiting Ed provider.
--- NOTE | 2023-06-10 22:01 | ED_ITS ---
HPI - Weakness General Chief complaint: Weakness Stated complaint: Nausea, light headedness, fever last night Time Seen by Provider: 06/10/23 21:58 Source: patient Mode of arrival: EMS Limitations: no limitations History of Present Illness HPI Narrative: Patient with end-stage renal disease on dialysis been coughing for last 2 days with fever today on arrival patient's temperature was 102.7 degrees prior to arrival patient was just feeling weak difficulty in walking no chest pain no palpitation patient felt dizzy and lightheaded had dialysis 2 days ago and is due tomorrow no vomit Related Data Home Medications Medication Instructions Recorded Confirmed atorvastatin 80 mg tablet 80 mg PO BEDTIME 04/20/20 06/07/23 calcium carbonate 600 mg-vitamin 1 tab PO BEDTIME 05/10/21 06/07/23 D3 10 mcg (400 unit) tablet loratadine 10 mg tablet 10 mg PO Q2D 05/10/21 06/07/23 acetaminophen 325 mg tablet 650 mg PO Q4H PRN Pain (Scale 01/30/22 06/07/23 Score 1-3) lidocaine-prilocaine 2.5 %-2.5 % 1 appl topical MOWEFR prior to 01/30/22 06/07/23 topical cream dialysis sevelamer carbonate 800 mg tablet 1 tab PO TID 01/30/22 06/07/23 doxycycline hyclate 100 mg tablet 100 mg PO BID 02/05/23 06/07/23 Previous Rx's Medication Instructions Recorded oxycodone 5 mg tablet 5 mg PO TID PRN pain #10 tabs 03/30/22 amiodarone 200 mg tablet 100 mg (1/2 x 200 mg) PO DAILY #45 11/10/22 tabs magnesium oxide 400 mg (241.3 mg 400 mg PO DAILY #90 tabs 03/08/23 magnesium) tablet apixaban 2.5 mg tablet (Eliquis) 2.5 mg PO BID #60 tabs 05/11/23 carvedilol 3.125 mg tablet 3.125 mg PO BID #60 tabs 05/28/23 benzonatate 200 mg capsule 200 mg PO TID PRN cough #20 caps 06/11/23 oseltamivir 75 mg capsule (Tamiflu) 75 mg PO BID 5 days #10 caps 06/11/23 Allergies Allergy/AdvReac Type Severity Reaction Status Date / Time NSAIDS (Non-Steroidal Allergy Unknown Unknown Verified 06/07/23 14:23 Anti-Inflamma Review of Systems 2 Review of Systems: Yes all other systems are reviewed and are negative [facility] Past Medical History Medical History Gallstones Elevated bilirubin ESRD (end stage renal disease) on dialysis ESRD (end stage renal disease) Hyperlipidemia HTN (hypertension) CAD (coronary artery disease) Ventricular tachycardia Paroxysmal atrial fibrillation ICD (implantable cardioverter-defibrillator) in place Ischemic cardiomyopathy Surgical History History of pubovaginal sling Hx of knee surgery Family History Family History Father No problems noted. Mother No problems noted. 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) Unable to assess alcohol history related to: Unknown Alcohol intake: never Patient Tobacco Use Status: Never used Tobacco Smoked in Last 30 Days: No Use of substances other than those prescribed or required for medical reasons: No Advance Directives: No Advance Directives Information Provided: No service: No Current occupational status: unemployed and disabled Physical Exam 2 Vital Signs: Vital Signs: Last Vital Signs Temp 98.2 F 06/11/23 00:23 Pulse 73 06/11/23 00:23 Resp 12 06/11/23 00:23 BP 116/64 06/11/23 00:23 Pulse Ox 95 06/11/23 00:23 O2 Del Method Room Air 06/11/23 00:23 BMI result Body Mass Index 24.3 Appearance: Alert. Oriented X3. No acute distress. Eyes: PERRLA, ENT: Pharynx normal. Oral Mucosa moist Neck: Normal inspection. Neck supple. CVS: Normal heart rate and rhythm. Pulses normal. Respiratory: No respiratory distress. Equal air entry bilateral, no wheezing/rales/rhonchi Abdomen: Soft and nontender. Bowel sounds are present, no mass palpable, no CVA tenderness Skin: Skin warm and dry. Normal skin color. Normal skin turgor. Extremities: No lower extremity edema. No calf tenderness Neuro: Oriented X 3. No motor deficit. No sensory deficit.No cerebellar signs , cranial nerves II-XII intact Medications Administered Discontinued Medications Generic Name Dose Route Start Last Admin Trade Name Freq PRN Reason Stop Dose Admin Acetaminophen 650 mg 06/10/23 23:00 06/10/23 23:08 Acetaminophen 325 Mg Tablet PO 06/10/23 23:01 650 mg ONCE ONE Administration Oseltamivir Phosphate 75 mg 06/10/23 23:00 06/10/23 23:08 Oseltamivir Phosphate 75 Mg Capsule PO 06/10/23 23:01 75 mg ONCE ONE Administration Sodium Zirconium Cyclosilicate 10 gm 06/11/23 00:14 06/11/23 00:23 Sodium Zirconium Cyclosilicate 10 Gm Powd.Pack PO 06/11/23 00:15 10 gm ONCE ONE Administration Medical Decision Making Medical Decision Making [facility] Narrative: Patient with fever cough weakness workup showed she had influenza A although later her potassium 5.6 she going to get dialysis tomorrow patient was given Lokelma feeling much better at this time will discharge patient home Differential Diagnosis Differential Diagnoses: The differential diagnosis associated with the presentation includes Viral fever/COVID/influenza/pneumonia/bacteremia Admission/Observation Consideration of admission/observation: Escalation of care including admission/observation considered Lab Data [facility] Lab Attestation statement: I reviewed the patient's lab results. 06/10/23 22:09 06/10/23 22:09 Labs: Lab Results 06/10/23 06/10/23 Range/Units 22:09 23:58 WBC 5.1 (4.8-10.8) X10*3/uL RBC 3.09 L (4.20-5.50) X10*6/uL Hgb 9.6 L (12.0-16.0) g/dl Hct 30.9 L (37.0-47.0) % MCV 100.0 H (80.0-98.0) fL MCH 31.1 (27.0-33.0) pg MCHC 31.1 (31.0-35.0) g/dl RDW 14.9 (11.0-16.0) % Plt Count 98 L (160-400) X10*3/uL MPV 9.8 (9.4-12.3) fL Immature Gran % (Auto) 0.4 (0.0-0.4) % Neut % (Auto) 73.2 H (45-73) % Lymph % (Auto) 12.7 L (20-40) % Prentiss % (Auto) 11.9 H (2-11) % Eos % (Auto) 1.6 (0-4) % Baso % (Auto) 0.2 (0-2) % Lymph # (Auto) 0.7 L (1.2-4.9) X10*3/uL Prentiss # (Auto) 0.6 (0.1-1.2) X10*3/uL Eos # (Auto) 0.1 (0.0-0.4) X10*3/uL Baso # (Auto) 0.0 (0.0-0.2) X10*3/uL Abs Immat Gran (auto) 0.02 (0.00-0.03) X10*3/uL Absolute Neuts (auto) 3.8 (2.0-8.3) x10*3/uL Absolute Nucleated RBC 0.000 (0.0-0.012) X10*3/uL Nucleated RBC % (auto) 0.0 (0.0-0.2) /100WBC Sodium 134 L (135-145) mmol/L Potassium 5.6 H (3.3-5.1) mmol/L Chloride 98 (96-108) mmol/L Carbon Dioxide 23 (22-29) mmol/L Anion Gap 19 (12-20) BUN 39 H (9-16) mg/dL Creatinine 6.73 H* (0.5-1.4) mg/dL Estim Creat Clear Calc 5.7 Estimated GFR 6 Random Glucose 140 H (60-115) mg/dL Lactic Acid 1.2 (0.5-2.0) mmol/L Calcium 8.9 (8.4-10.2) mg/dL Total Bilirubin 0.9 (0.0-1.0) mg/dL AST 25 (5-31) U/L ALT 8 (0-31) U/L Alkaline Phosphatase 200 H (39-117) U/L Total Protein 7.4 (6.5-8.0) g/dL Albumin 3.1 L (3.5-5.0) g/dL COVID-19 (MITZI) Negative (Negative) COVID-19 Clin Com See Note Influenza Type A (VICK) Positive A (Negative) Influenza Type B (VICK) Negative (Negative) Influenza A & B Note See Note Discharge Plan Discharge Clinical Impression: Influenza A Patient Disposition: Home, Self-Care Instructions: Influenza (ED) Additional Instructions: Wear mask, social distancing as advised Have your dialysis tomorrow Tamiflu twice daily for 5 days Cough drops as prescribed Prescriptions: New oseltamivir [Tamiflu] 75 mg capsule 75 mg PO BID 5 Days Qty: 10 0RF benzonatate 200 mg capsule 200 mg PO TID PRN (Reason: cough) Qty: 20 0RF No Action amiodarone 200 mg tablet 100 mg PO DAILY Qty: 45 1RF magnesium oxide 400 mg (241.3 mg magnesium) tablet 400 mg PO DAILY Qty: 90 3RF Eliquis 2.5 mg tablet 2.5 mg PO BID Qty: 60 5RF carvedilol 3.125 mg tablet 3.125 mg PO BID Qty: 60 10RF loratadine 10 mg tablet 10 mg PO Q2D calcium carbonate-vitamin D3 600 mg-10 mcg (400 unit) tablet 1 tab PO BEDTIME lidocaine-prilocaine 2.5-2.5 % cream 1 appl topical MOWEFR sevelamer carbonate 800 mg tablet 1 tab PO TID acetaminophen 325 mg Tablet 650 mg PO Q4H PRN (Reason: Pain (Scale Score 1-3)) atorvastatin 80 mg tablet 80 mg PO BEDTIME oxycodone 5 mg tablet 5 mg PO TID PRN (Reason: pain) Qty: 10 0RF Rx Instructions: Partial Fill upon patient request. doxycycline hyclate 100 mg tablet 100 mg PO BID Interventions: ED Discharge Assessment Last Done: 06/11/23 00:40 Discharge Date/Time: 06/11/23 01:08
[2023-06-10 22:14] LABS: MANUAL DIFF FLAG NO
[2023-06-10 22:19] LABS: Basophils Percent Auto 0.2 % (0-2); Eosinophils Absolute Auto 0.1 X10*3/uL (0.0-0.4); Eosinophils Percent Auto 1.6 % (0-4); Hematocrit 30.9 % (37.0-47.0); Hemoglobin 9.6 g/dl (12.0-16.0); Imm Gran Abs Auto 0.02 X10*3/uL (0.00-0.03); Imm Gran Pct Auto 0.4 % (0.0-0.4); Lymphocytes Absolute Auto 0.7 X10*3/uL (1.2-4.9); Lymphocytes Percent Auto 12.7 % (20-40); Mean Corpuscular HGB Conc 31.1 g/dl (31.0-35.0); Mean Corpuscular Hemoglobin 31.1 pg (27.0-33.0); Mean Platelet Volume 9.8 fL (9.4-12.3); Monocytes Absolute Auto 0.6 X10*3/uL (0.1-1.2); Monocytes Percent Auto 11.9 % (2-11); Neutrophils Absolute Auto 3.8 x10*3/uL (2.0-8.3); Neutrophils Percent Auto 73.2 % (45-73); Platelet Count 98 X10*3/uL (160-400); Red Blood Count 3.09 X10*6/uL (4.20-5.50); Red Cell Distribution Width 14.9 % (11.0-16.0); White Blood Count 5.1 X10*3/uL (4.8-10.8)
[2023-06-10 22:32] LABS: COVID-19 Test Negative (Negative); IDNOW Serial# 6674DD1D
[2023-06-10 22:40] LABS: IDNOW Serial# 152EDE1D; Influenza A Positive (Negative); Influenza B2 Negative (Negative)
[2023-06-10 22:50] LABS: Alanine Aminotransferase 8 U/L (0-31); Albumin Level 3.1 g/dL (3.5-5.0); Alkaline Phosphatase 200 U/L (39-117); Anion Gap 19 (12-20); Aspartate Amino Transferase 25 U/L (5-31); Bilirubin Total 0.9 mg/dL (0.0-1.0); Blood Urea Nitrogen 39 mg/dL (9-16); Calcium 8.9 mg/dL (8.4-10.2); Carbon Dioxide 23 mmol/L (22-29); Chloride 98 mmol/L (96-108); Creatinine Clr Calc Pharmacy 5.7; Estimated Glomerular Filt Rate 6; Glucose Random 140 mg/dL (60-115); Potassium 5.6 mmol/L (3.3-5.1); Sodium 134 mmol/L (135-145); Total Protein 7.4 g/dL (6.5-8.0)
[2023-06-10 23:01] VITALS: TEMP 39.3
[2023-06-10] MEDS: Oseltamivir Phosphate 75 MG CAPSULE PO (23:08)
[2023-06-10] MEDS: Acetaminophen 325 MG TABLET 650 MG PO (23:08)
--- NOTE | 2023-06-10 23:19 | PC.NURSE ---
Pt's neighbor, Cirilo, is here, saying that he will drive pt home, and left his number [phone]
[2023-06-11 00:15] VITALS: BP 116/64; PULSE 74; RESP 24; TEMP 37.3; O2SAT 95
[2023-06-11 00:16] LABS: Lactic Acid 1.2 mmol/L (0.5-2.0)
[2023-06-11 00:23] VITALS: BP 116/64; PULSE 73; RESP 12; TEMP 36.8; O2SAT 95
[2023-06-11] MEDS: Sodium Zirconium Cyclosilicate 10 GM POWD.PACK PO (00:23)
--- NOTE | 2023-06-11 00:28 | PC.NURSE ---
Pt ambulated in room, able to walk without assistance, steady gait and no dizziness. Called pt's neighbor who will come to pick pt up shortly.
== END 2023-06-11 01:08 | disposition home or self-care (01) ==
PROVIDERS: Emergency Provider Internal Medicine; PCP Family Medicine
DX: J10.1 Influenza due to other identified influenza virus with other respiratory manifestations (principal); R53.1 Weakness; R50.9 Fever, unspecified; R42 Dizziness and giddiness; I13.2 Hypertensive heart and chronic kidney disease with heart failure and with stage 5 chronic kidney disease, or end stage renal disease; N18.6 End stage renal disease; Z99.2 Dependence on renal dialysis; Z11.52 Encounter for screening for COVID-19; Z79.899 Other long term (current) drug therapy
CPT/HCPCS: 36415; 71045; 80053; 83605; 85025; 87040; 87502; 87635; 99284; 99285

== ENCOUNTER → 2023-06-13 23:59 | Outpatient (BNV) | payer OTHER, SELFPAY ==
--- NOTE | 2023-06-13 16:24 | A.OFFVIS_ITS ---
Intake Intake Visit Reasons: Remote ICD Check- Biotronik Allergies NSAIDS (Non-Steroidal Anti-Inflamma Allergy (Unknown, Verified 06/07/23 14:23) Unknown [facility] Medical History Gallstones Elevated bilirubin ESRD (end stage renal disease) on dialysis ESRD (end stage renal disease) Hyperlipidemia HTN (hypertension) CAD (coronary artery disease) Ventricular tachycardia Paroxysmal atrial fibrillation ICD (implantable cardioverter-defibrillator) in place Ischemic cardiomyopathy Surgical History History of pubovaginal sling Hx of knee surgery Family History Father No problems noted. Mother No problems noted. 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 ICD function is adequate [id number] Cardiac Interrogation, implant defibrillator w/interim Procedure code (CPT) selection complete Assessment & Plan Assessment & Plan (1) ICD (implantable cardioverter-defibrillator) in place: Comment: Biotronik single-chamber ICD placed at [facility] for sustained VT and LVEF of 30-35%. Code(s): Z95.810 - Presence of automatic (implantable) cardiac defibrillator Plan: See above Coding Level of Care Code Procedure Only Diagnoses ICD (implantable cardioverter-defibrillator) in place Z95.810 CPT Codes Cardiac Device Check - Cardiac Device 13: [id number] Cardiac Interrogation, implant defibrillator w/interim ([id number])
== END ==
PROVIDERS: PCP Family Medicine; Visit Provider Internal Medicine Cardiovascular Disease
DX: I25.5 Ischemic cardiomyopathy (principal); Z95.810 Presence of automatic (implantable) cardiac defibrillator
CPT/HCPCS: 93295

== ENCOUNTER → 2023-06-18 23:59 | Outpatient (BNV) | payer OTHER, SELFPAY ==
--- NOTE | 2023-06-18 16:17 | MHC.OFFVIS ---
Intake Intake Visit Reasons: Remote HF Monitoring- Biotronik Allergies NSAIDS (Non-Steroidal Anti-Inflamma Allergy (Unknown, Verified 06/07/23 14:23) Unknown [facility] Medical History Gallstones Elevated bilirubin ESRD (end stage renal disease) on dialysis ESRD (end stage renal disease) Hyperlipidemia HTN (hypertension) CAD (coronary artery disease) Ventricular tachycardia Paroxysmal atrial fibrillation ICD (implantable cardioverter-defibrillator) in place Ischemic cardiomyopathy Surgical History History of pubovaginal sling Hx of knee surgery Family History Father No problems noted. Mother No problems noted. 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 Heart failure parameters are stable [id number] Cardiac Device Interrogation, cardio physiologic monitor Procedure code (CPT) selection complete Assessment & Plan Assessment & Plan (1) ICD (implantable cardioverter-defibrillator) in place: Comment: Biotronik single-chamber ICD placed at [facility] for sustained VT and LVEF of 30-35%. Code(s): Z95.810 - Presence of automatic (implantable) cardiac defibrillator Plan: See above Coding Level of Care Code Procedure Only Diagnoses ICD (implantable cardioverter-defibrillator) in place Z95.810 CPT Codes Cardiac Device Check - Cardiac Device 15: [id number] Cardiac Device Interrogation, cardio physiologic monitor ([id number])
== END ==
PROVIDERS: PCP Family Medicine; Visit Provider Internal Medicine Cardiovascular Disease
DX: I25.5 Ischemic cardiomyopathy (principal); Z95.810 Presence of automatic (implantable) cardiac defibrillator
CPT/HCPCS: 93297

== ENCOUNTER 2023-08-06 13:47 | Outpatient (AMB) | payer OTHER, SELFPAY ==
--- NOTE | 2023-08-06 13:57 | A.OFFVIS_ITS ---
Intake Vital Signs 08/06/23 13:58 Height 5 ft Weight 124 lb BMI 24.2 BP 110/60 Blood Pressure Location Lt brachial Position Sitting Pulse 77 Pulse Source Pulse Oximeter Intake Visit Reasons: f/up and biotronic ck Intake Note: pt its that she its doing fine. Supervisor Esters And Emulsifiers Required: Yes Supervisor Esters And Emulsifiers Name: mandi Accompanied by: Self / Same As Patient Allergies NSAIDS (Non-Steroidal Anti-Inflamma Allergy (Unknown, Verified 06/07/23 14:23) Unknown Medication List - Last Reconciled 08/06/23 by Antonieta Barrios, COAL EQUIPMENT OPERATOR-C acetaminophen 650 mg PO Q4H PRN amiodarone 100 mg (1/2 x 200 mg) PO DAILY apixaban (Eliquis) 2.5 mg PO BID atorvastatin 80 mg PO BEDTIME benzonatate 200 mg PO TID PRN calcium carbonate-vitamin D3 600 mg-10 mcg (400 unit) 1 tab PO BEDTIME carvedilol 3.125 mg PO BID doxycycline hyclate 100 mg PO BID lidocaine-prilocaine 2.5-2.5 % 1 appl topical MOWEFR loratadine 10 mg PO Q2D magnesium oxide 400 mg PO DAILY oseltamivir (Tamiflu) 75 mg PO BID 5 days oxycodone 5 mg PO TID PRN sevelamer carbonate 1 tab PO TID HPI f/up and biotronic ck HPI Details Gabriel is a 72 yo female with PMH of HTN, HLD, CAD with prior MD, Ischemic CMP, NSVT, Biotronic ICD, PAF, TIA, ESRD on dialysis who presents for follow up. Today she reports she has been doing well since her last visit here in January. She has her dialysis 3 times weekly. She denies any new or concerning symptoms. No chest discomfort at rest or with activity. No shortness of breath, palpitations, lightheadedness, presyncope, syncope, falls. She has trace swelling in her left lower extremity from a prior injury. Taking all meds as directed. 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 [facility] Medical History Gallstones Elevated bilirubin ESRD (end stage renal disease) on dialysis ESRD (end stage renal disease) Hyperlipidemia HTN (hypertension) CAD (coronary artery disease) Ventricular tachycardia Paroxysmal atrial fibrillation ICD (implantable cardioverter-defibrillator) in place Ischemic cardiomyopathy Surgical History History of pubovaginal sling Hx of knee surgery Family History Father No problems noted. Mother No problems noted. 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) Unable to assess alcohol history related to: Unknown Alcohol intake: never Patient Tobacco Use Status: Never used Tobacco service: No Current occupational status: unemployed and disabled Review of Systems Const All systems reviewed & are unremarkable except as noted in HPI and below Denies chills, Reports fatigue, Denies fever(s), Denies frequent falls, Reports weakness, Denies weight gain and Denies weight loss ENT Denies dizziness Card Denies chest pain, Denies leg edema, Denies lightheadedness, Denies palpitations, Denies dyspnea and Denies dyspnea on exertion Resp Denies cough, Denies dyspnea and Denies dyspnea on exertion GI Denies hematochezia Musc Denies abnormal gait, Denies muscle weakness, Denies numbness, Denies radiating pain into limb and Denies tingling Neuro Denies abnormal gait, Denies dizziness, Denies frequent falls, Denies numbness, Denies tingling and Reports weakness Endo Reports fatigue and Denies palpitations Physical Exam Vital Signs: Last Vital Signs Pulse 77 08/06/23 13:58 BP 110/60 08/06/23 13:58 BMI result Body Mass Index 24.2 Const General: cooperative, comfortable and no acute distress Orientation/consciousness: patient oriented x3 Neck Neck: Yes normal visual inspection Resp Effort & Inspection: normal respiratory effort Auscultation: clear to auscultation bilaterally, no crackles, no rales, no rhonchi and no wheezes Cardio Jugular venous distension: no JVD Rate: regular rate Rhythm: regular rhythm Heart sounds: S1 normal heart sound present, S2 normal heart sound present, Murmur heart sound present (systolic murmur noted) and no rubs Neuro General: patient oriented x3 Extrem General: Yes normal to inspection Psych Appearance: grossly normal Mental Status: mental status grossly normal Speech and movement: Normal speech and movement present Office Procedures Cardiac Device Check Cardiac Device Check Details: Biotronik dual-chamber ICD interrogation today shows VVI mode, low rate 40, battery 100%, RV threshold 0.7, pacing impedance 482, atrial burden 0%, ventricular pacing 0%, brief NSVT episodes, no therapies. [id number] Cardiac Device Check, dual lead implantable defibrillator Procedure code (CPT) selection complete Assessment & Plan Assessment & Plan (1) Ischemic cardiomyopathy: Comment: known prior inferior inferolateral territory myocardial infarction. LVEF was 40-45%. Subsequent admitted with chest discomfort to [facility] in LVEF was noted to be 30-35%. This was in setting of atrial fibrillation and ventricular tachycardia. She subsequently underwent ICD placement for secondary prevention. Echocardiogram December 2019 showed LVEF of 40-45%. Nuclear stress test showed fixed defect consistent with infarction inferior inferolateral wall as before. Code(s): I25.5 - Ischemic cardiomyopathy Plan: Hx of ischemic CMP. Last echo 03/13/2023 shows EF 30-35%, basal inferior mid inferior and basal inferior lateral akinetic, severe biatrial enlargement, moderate MR and MS, [id number] TR, moderate pulmonary hypertension. Prior to this her last echo was 05/10/2021 which showed EF 45-50%. She attends dialysis 3 times weekly. She has no signs of heart failure on examination. She has remote heart failure monitoring through her Biotronik device which has been stable. She is not on latasha/ arb due to ESRD and on dialysis since April 2021. She was on Hydralazine in the past which was stopped due to low blood pressures. She is on carvedilol for neurohormonal modulation. Her remote monitoring recently did show an 18 beat episode of NSVT. With her drop in EF, and NSVT episode will update a nuclear stress test. Plan to call her with results unless sooner appointment is needed. Cardiology follow-up, 6 month, sooner if needed (2) CAD (coronary artery disease): Comment: 06/28/2011 nonobstructive CAD with cardiac catheterization showing LAD diffuse irregularity with 1st diagonal 50% stenosis. Manage medically Code(s): I25.10 - Atherosclerotic heart disease of [place] coronary artery without angina pectoris Plan: No reports of anginal sounding symptoms. Continue low dose carvedilol. Continue high-dose atorvastatin. She is not on aspirin as she is on Eliquis. (3) Paroxysmal atrial fibrillation: Code(s): I48.0 - Paroxysmal atrial fibrillation Plan: History of paroxysmal atrial fibrillation. Device interrogation shows No AF. Pulse is very regular on examination. No reports of heart palpitations. Continue carvedilol and Amiodarone. She is on Eliquis 2.5 mg bid which is appropriate for her weight and kidney function. No reports of bleeding. Ongoing monitoring for amiodarone toxicity. Labs done 06/10/2023 showed normal LFT. Labs done 05/23/2022 showed TSH 1.81. Will have her update TSH. She has an eye exam next month, informed to notify her provider that she is on amiodarone. Recent chest x-ray shows no mention of ILD. Currently denying shortness of breath. (4) Ventricular tachycardia: Code(s): I47.2 - Ventricular tachycardia Plan: Recent 18 beat NSVT episode. Known to have reduced EF 30-35%. She will continue on carvedilol and amiodarone. Will check a nuclear stress test as above. ICD in place and no therapies have been required (5) ICD (implantable cardioverter-defibrillator) in place: Comment: Biotronik single-chamber ICD placed at [facility] for sustained VT and LVEF of 30-35%. Code(s): Z95.810 - Presence of automatic (implantable) cardiac defibrillator Plan: Functioning normally on interrogation today. Office visit interrogation due 6 months. Continue home monitoring. (6) HTN (hypertension): Code(s): I10 - Essential (primary) hypertension Qualifiers: Hypertension type: primary hypertension Qualified Code(s): I10 - Essential (primary) hypertension Plan: Well controlled at present time. (7) Hyperlipidemia: Code(s): E78.5 - Hyperlipidemia, unspecified Plan: [place] LDL goal less than 70 and patient with CAD. Continue high-dose atorvastatin. No recent lipid profile in our system. Will enter labs, patient informed Plan Time spent on chart review, documentation, interview and assessment Orders: Orders NM cardiolite stress test Today I25.5 - Ischemic cardiomyopathy, I47.2 - Ventric ular tachycardia, Z95.810 - Presence of automatic (implantable) cardiac defibrillator CA lexiscan stress w kaila Today I25.5 - Ischemic cardiomyopathy, I47.2 - Ventricular tachycardia Coding Level of Care Code Est Pt Level 4 (02156) Diagnoses Ischemic cardiomyopathy I25.5 CAD (coronary artery disease) I25.10 Paroxysmal atrial fibrillation I48.0 Ventricular tachycardia I47.2 ICD (implantable cardioverter-defibrillator) in place Z95.810 Primary hypertension I10 Hypertension type: primary hypertension Hyperlipidemia E78.5 CPT Codes Cardiac Device Check - Cardiac Device 5: [id number] Cardiac Device Check, dual lead implantable defibrillator ([id number]) Time Spent (min) 28
[2023-08-06 13:58] VITALS: BP 110/60; PULSE 77; BMI 24.2
== END 2023-08-06 14:38 | disposition home or self-care (01) ==
PROVIDERS: PCP Family Medicine; Visit Provider Nurse Practitioner Family
DX: I25.5 Ischemic cardiomyopathy (principal); I25.10 Atherosclerotic heart disease of native coronary artery without angina pectoris; I48.0 Paroxysmal atrial fibrillation; I47.20 Ventricular tachycardia, unspecified; Z95.810 Presence of automatic (implantable) cardiac defibrillator; I10 Essential (primary) hypertension; E78.5 Hyperlipidemia, unspecified
CPT/HCPCS: 93283; 99214

== ENCOUNTER → 2023-08-06 13:47 | Outpatient (BNVA) | payer OTHER, SELFPAY | PROVIDERS: PCP Family Medicine; Visit Provider Nurse Practitioner Family | DX: I10 Essential (primary) hypertension (principal); I25.10 Atherosclerotic heart disease of native coronary artery without angina pectoris; I48.0 Paroxysmal atrial fibrillation; I25.5 Ischemic cardiomyopathy; I47.20 Ventricular tachycardia, unspecified; E78.5 Hyperlipidemia, unspecified; Z86.73 Personal history of transient ischemic attack (TIA), and cerebral infarction without residual deficits; Z95.810 Presence of automatic (implantable) cardiac defibrillator | CPT/HCPCS: 99212 ==

== ENCOUNTER → 2023-08-20 23:59 | Outpatient (BNV) | payer OTHER, SELFPAY ==
--- NOTE | 2023-08-20 16:11 | A.OFFVIS_ITS ---
Intake Intake Visit Reasons: Remote HF monitoring- Biotronik Allergies NSAIDS (Non-Steroidal Anti-Inflamma Allergy (Unknown, Verified 06/07/23 14:23) Unknown [facility] Medical History Gallstones Elevated bilirubin ESRD (end stage renal disease) on dialysis ESRD (end stage renal disease) Hyperlipidemia HTN (hypertension) CAD (coronary artery disease) Ventricular tachycardia Paroxysmal atrial fibrillation ICD (implantable cardioverter-defibrillator) in place Ischemic cardiomyopathy Surgical History History of pubovaginal sling Hx of knee surgery Family History Father No problems noted. Mother No problems noted. 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 Heart failure parameters are stable [id number] Cardiac Device Interrogation, cardio physiologic monitor Procedure code (CPT) selection complete Assessment & Plan Assessment & Plan (1) ICD (implantable cardioverter-defibrillator) in place: Comment: Biotronik single-chamber ICD placed at [facility] for sustained VT and LVEF of 30-35%. Code(s): Z95.810 - Presence of automatic (implantable) cardiac defibrillator Plan: See above Coding Level of Care Code Procedure Only Diagnoses ICD (implantable cardioverter-defibrillator) in place Z95.810 CPT Codes Cardiac Device Check - Cardiac Device 15: [id number] Cardiac Device Interrog ation, cardio physiologic monitor ([id number])
== END ==
PROVIDERS: PCP Family Medicine; Visit Provider Internal Medicine Cardiovascular Disease
DX: Z45.02 Encounter for adjustment and management of automatic implantable cardiac defibrillator (principal)
CPT/HCPCS: 93297

== ENCOUNTER 2023-09-06 11:44 | Outpatient (REF) | payer OTHER, SELFPAY ==
--- NOTE | ~2023-09-06 | MM_ITS ---
EXAMINATION: MM SCREENING DIGITAL BREAST TOMOSYNTHESIS, BILATERAL CLINICAL INFORMATION: Screening. Asymptomatic. COMPARISON: Mammography: This study is compared with prior exams dating back to 2018. TECHNIQUE: Digital breast tomosynthesis is performed in both the craniocaudal and mediolateral oblique views along with computer-aided detection (CAD). Synthesized 2D images are generated from the tomosynthesis. FINDINGS: The breasts are heterogeneously dense, which may obscure small masses (ACR BI-RADS breast composition Category c). There are no significant masses, abnormal calcifications, or other abnormalities. There is a pacemaker in superior aspect of the left breast. MM/MM tomosynthesis screening BI IMPRESSION: No mammographic evidence of malignancy. ASSESSMENT: BI-RADS BI-RADS 1 - Negative RECOMMENDATION: Routine annual mammography screening. 1 year F/U This examination should not preclude the clinical evaluation of a suspicious palpable abnormality. This patient's information was entered into a reminder system with a target due date for their next mammogram.
== END 2023-09-06 11:45 | disposition home or self-care (01) ==
LOC: HO.MAMMO 11:44
PROVIDERS: PCP Family Medicine; Visit Provider Family Medicine
DX: Z12.31 Encounter for screening mammogram for malignant neoplasm of breast (principal)
CPT/HCPCS: 77063; 77067

== ENCOUNTER → 2023-09-06 12:00 | Outpatient (BNV) | payer OTHER, SELFPAY | PROVIDERS: PCP Family Medicine; Visit Provider Radiology Diagnostic Radiology | DX: Z12.31 Encounter for screening mammogram for malignant neoplasm of breast (principal) | CPT/HCPCS: 77063; 77067 ==

== ENCOUNTER → 2023-09-12 23:59 | Outpatient (BNV) | payer OTHER, SELFPAY ==
--- NOTE | 2023-09-13 14:31 | MHC.OFFVIS ---
Intake Visit Reasons: Remote ICD check- Biotronik Allergies NSAIDS (Non-Steroidal Anti-Inflamma Allergy (Unknown, Verified 06/07/23 14:23) Unknown [facility] Medical History Gallstones Elevated bilirubin ESRD (end stage renal disease) on dialysis ESRD (end stage renal disease) Hyperlipidemia HTN (hypertension) CAD (coronary artery disease) Ventricular tachycardia Paroxysmal atrial fibrillation ICD (implantable cardioverter-defibrillator) in place Ischemic cardiomyopathy Surgical History History of pubovaginal sling Hx of knee surgery Family History Father No problems noted. Mother No problems noted. 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 ICD function is adequate [id number] Cardiac Interrogation, implant defibrillator w/interim Procedure code (CPT) selection complete Assessment & Plan Assessment & Plan (1) ICD (implantable cardioverter-defibrillator) in place: Comment: Biotronik single-chamber ICD placed at [facility] for sustained VT and LVEF of 30-35%. Code(s): Z95.810 - Presence of automatic (implantable) cardiac defibrillator Category: Medical Plan: See above Coding Level of Care Code Procedure Only Diagnoses ICD (implantable cardioverter-defibrillator) in place Z95.810 CPT Codes Cardiac Device Check - Cardiac Device 13: [id number] Cardiac Interrogation, implant defibrillator w/interim ([id number])
== END ==
PROVIDERS: PCP Family Medicine; Visit Provider Internal Medicine Cardiovascular Disease
DX: I47.20 Ventricular tachycardia, unspecified (principal); Z95.810 Presence of automatic (implantable) cardiac defibrillator
CPT/HCPCS: 93295

== ENCOUNTER 2023-09-14 01:20 | Observation (INO) | payer OTHER, SELFPAY ==
[2023-09-14] VITALS (13 sets, daily range): BP systolic 104–130; BP diastolic 49–67; PULSE 61–81; RESP 16–24; TEMP 36.3–37.1; O2SAT 90–97; BMI 23.9
--- NOTE | 2023-09-14 | ECG_ITS ---
Test Reason : ABD PAIN Blood Pressure : / mmHG Vent. Rate : 063 BPM Atrial Rate : 063 BPM P-R Int : 208 ms QRS Dur : 090 ms QT Int : 516 ms P-R-T Axes : 051 -49 -15 degrees QTc Int : 528 ms Normal sinus rhythm with sinus arrhythmia Left axis deviation Inferior infarct (cited on or before 10-OCT-2022) Anteroseptal infarct (cited on or before 10-OCT-2022) Prolonged QT Abnormal ECG When compared with ECG of 10-OCT-2022 23:07, Questionable change in initial forces of Anteroseptal leads Inverted T waves have replaced nonspecific T wave abnormality in Inferior leads T wave inversion now evident in Anterior leads Referred By: Generic ED Physician Electronically Signed By:NISHI CAMARENA
--- NOTE | ~2023-09-14 | XR_ITS ---
EXAMINATION: XR CHEST CLINICAL INFORMATION: Pain. COMPARISON: Chest radiograph 06/10/2023. TECHNIQUE: Frontal view of the chest was obtained. FINDINGS: Stable cardiomegaly. Redemonstration of left-sided pacer/AICD with single lead projecting over the right ventricle. Unchanged pulmonary venous congestion. No focal consolidation, pleural effusion or pneumothorax. Again noted vascular stent in the right axillary/brachial region. No acute osseous findings. Visualized upper abdomen is within normal limits. XR/XR chest 1V IMPRESSION: Stable examination compared to 06/10/2023.
--- NOTE | ~2023-09-14 | US_ITS ---
EXAMINATION: US ABDOMEN LIMITED CLINICAL INFORMATION: Abdominal pain. COMPARISON: Abdominal ultrasound 03/03/2022. MRCP 02/07/2022. TECHNIQUE: Real-time imaging of the right upper quadrant abdominal viscera. FINDINGS: PANCREAS: Normal. LIVER: Cirrhotic liver morphology with heterogeneous parenchyma and nodular contour. No discrete focal liver mass. No significant intrahepatic biliary ductal dilatation. Small volume of ascites is seen. GALLBLADDER: The gallbladder is filled with stones and contracted with gallbladder wall thickening measuring up to 0.5 cm. Small volume of pericholecystic free fluid. Negative Solis's sign. COMMON BILE DUCT: Normal in caliber measuring 0.3 cm in diameter. RIGHT KIDNEY: Atrophic with cortical thinning and increased cortical echogenicity. Multiple benign-appearing cysts, for which no imaging follow-up is recommended. No nephrolithiasis or hydronephrosis.The kidney measures 7. cm in maximum dimension. FREE FLUID: Small volume of ascites. US/US abdomen limited IMPRESSION: 1. Cirrhotic liver morphology with small volume of ascites. 2. Cholelithiasis with gallbladder wall thickening and small volume of pericholecystic free fluid. Negative Solis's sign. These findings are nonspecific and could be related with underlying cirrhosis and ascites, recommend clinical correlation. Prior MRCP from 02/07/2022 also demonstrated gallbladder wall thickening, recommend clinical correlation for chronic cholecystitis. 3. Atrophic right kidney with cortical thinning and increased cortical echogenicity suggesting chronic renal disease.
[2023-09-14 01:46] LABS: MANUAL DIFF FLAG NO
[2023-09-14 01:47] LABS: Basophils Percent Auto 0.3 % (0-2); Eosinophils Percent Auto 0.4 % (0-4); Hemoglobin 10.5 g/dl (12.0-16.0); Imm Gran Abs Auto 0.05 X10*3/uL (0.00-0.03); Imm Gran Pct Auto 0.6 % (0.0-0.4); Lymphocytes Absolute Auto 0.5 X10*3/uL (1.2-4.9); Lymphocytes Percent Auto 6.3 % (20-40); Mean Corpuscular HGB Conc 30.9 g/dl (31.0-35.0); Mean Corpuscular Hemoglobin 29.4 pg (27.0-33.0); Mean Corpuscular Volume 95.2 fL (80.0-98.0); Mean Platelet Volume 9.7 fL (9.4-12.3); Monocytes Absolute Auto 0.8 X10*3/uL (0.1-1.2); Monocytes Percent Auto 10.3 % (2-11); Neutrophils Absolute Auto 6.3 x10*3/uL (2.0-8.3); Neutrophils Percent Auto 82.1 % (45-73); Red Blood Count 3.57 X10*6/uL (4.20-5.50); Red Cell Distribution Width 15.3 % (11.0-16.0); White Blood Count 7.7 X10*3/uL (4.8-10.8)
[2023-09-14 01:48] LABS: Platelet Count 87 X10*3/uL (160-400)
[2023-09-14 02:11] LABS: Troponin-I High Sensitivity 30.7 ng/L (<3.5-17.0)
[2023-09-14 02:12] LABS: Alanine Aminotransferase 10 U/L (0-31); Albumin Level 3.1 g/dL (3.5-5.0); Alkaline Phosphatase 277 U/L (39-117); Anion Gap 20 (12-20); Aspartate Amino Transferase 24 U/L (5-31); Blood Urea Nitrogen 40 mg/dL (9-16); Carbon Dioxide 21 mmol/L (22-29); Chloride 99 mmol/L (96-108); Creatinine Clr Calc Pharmacy 7.7; Estimated Glomerular Filt Rate 9; Glucose Random 120 mg/dL (60-115); Lipase 65 U/L (8-78); Potassium 4.8 mmol/L (3.3-5.1); Sodium 135 mmol/L (135-145); Total Protein 7.4 g/dL (6.5-8.0)
[2023-09-14 02:23] LABS: Influenza A PCR NEGATIVE (Negative); Influenza B PCR NEGATIVE (Negative); Resp Syncy Virus RNA Qual PCR NEGATIVE (Negative); SARS COV2 PCR INHOUSE NEGATIVE (Negative)
--- NOTE | 2023-09-14 07:06 | ED_ITS ---
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 Denies travel or sick contacts. Has no abdominal pain at this time MD elicited complaint: nausea, vomiting and diarrhea Onset (ago): hour(s) (9pm) Description of vomiting: watery Description of diarrhea: watery Associated nausea: Yes Associated abdominal pain: No Severity: mild Exacerbating factors: eating and movement Relieving factors: none Context: other (chronic cholecystitis) Associated symptoms: myalgias, fever/chills, loss of appetite, malaise, nausea/vomiting and weakness Related Data Home Medications ?Medication ?Instructions ?Recorded ?Confirmed atorvastatin 80 mg tablet 80 mg PO BEDTIME 04/20/20 08/06/23 calcium carbonate 600 mg-vitamin 1 tab PO BEDTIME 05/10/21 08/06/23 D3 10 mcg (400 unit) tablet loratadine 10 mg tablet 10 mg PO Q2D 05/10/21 08/06/23 acetaminophen 325 mg tablet 650 mg PO Q4H PRN Pain (Scale 01/30/22 08/06/23 Score 1-3) lidocaine-prilocaine 2.5 %-2.5 % 1 appl topical MOWEFR prior to 01/30/22 08/06/23 topical cream dialysis sevelamer carbonate 800 mg tablet 1 tab PO TID 01/30/22 08/06/23 doxycycline hyclate 100 mg tablet 100 mg PO BID 02/05/23 08/06/23 Previous Rx's ?Medication ?Instructions ?Recorded oxycodone 5 mg tablet 5 mg PO TID PRN pain #10 tabs 03/30/22 magnesium oxide 400 mg (241.3 mg 400 mg PO DAILY #90 tabs 03/08/23 magnesium) tablet apixaban 2.5 mg tablet (Eliquis) 2.5 mg PO BID #60 tabs 05/11/23 carvedilol 3.125 mg tablet 3.125 mg PO BID #60 tabs 05/28/23 benzonatate 200 mg capsule 200 mg PO TID PRN cough #20 caps 06/11/23 oseltamivir 75 mg capsule (Tamiflu) 75 mg PO BID 5 days #10 caps 06/11/23 amiodarone 200 mg tablet 100 mg (1/2 x 200 mg) PO DAILY 90 08/28/23 days #45 tabs Allergies Allergy/AdvReac Type Severity Reaction Status Date / Time NSAIDS (Non-Steroidal Allergy Unknown Unknown Verified 09/14/23 01:36 Anti-Inflamma Review of Systems 2 Review of Systems: Constitutional : No Weight loss, No Fever, pos Chills ENT/Mouth : No sore throat, No Rhinorrhea Eyes: No Swelling, No Redness Cardiovascular : No Chest Pain, No SOB, NoEdema Respiratory : No Cough, No Sputum, No Wheezing Gastrointestinal : Positive Nausea, Positive Vomiting, positive Diarrhea, no abdominal Pain, No Hematochezia, No Melena Genitourinary : No Dysuria, No Urinary Frequency, No Hematuria, No Urgency Musculoskeletal : No joint pain, No Myalgias, No Joint Swelling Skin : No Skin Lesions, No rash Neuro : pos Weakness, No Numbness, No Dizziness, No Headache All other systems reviewed and are negative. Gastrointestinal: Gastrointestinal: Reports nausea PMFSH Past Medical History Attestation statement: The following information was validated with the patient. Source: old records reviewed Medical History Gallstones Elevated bilirubin ESRD (end stage renal disease) on dialysis ESRD (end stage renal disease) Hyperlipidemia HTN (hypertension) CAD (coronary artery disease) Ventricular tachycardia Paroxysmal atrial fibrillation ICD (implantable cardioverter-defibrillator) in place Ischemic cardiomyopathy Surgical History History of pubovaginal sling Hx of knee surgery Family History Family History Father No problems noted. Mother No problems noted. 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 Oriented X3. No acute distress. Eyes: Pupils equal, round and reactive to light. ENT: Pharynx normal. Neck: Normal inspection. Neck supple. CVS: Normal heart rate and rhythm. Pulses normal. Respiratory: No respiratory distress. Breath sounds normal. Abdomen: Soft and nontender. Skin: Skin warm and dry. Normal skin color. Normal skin turgor. Extremities: No lower extremity edema. No calf ttp Neuro: Oriented X 3. No motor deficit. No sensory deficit. Course Course Course Narrative: Dr. Romano at bedside 1117am. Reevaluation(s) Reevaluation #1: given US and presentation possible chronic infection at this time infection suspected 1125am - will dose with IV ceftriaxone Medications Administered Discontinued Medications Generic Name Dose Route Start Last Admin Trade Name Freq PRN Reason Stop Dose Admin Ondansetron HCl 4 mg 09/14/23 07:06 09/14/23 08:43 Ondansetron Hcl 4 Mg/2 Ml Vial IVPUSH 09/14/23 07:07 4 mg ONCE ONE Administration Medical Decision Making Medical Decision Making MDM Narrative: 73 yo female with PMH of HTN, HLD, CAD, CHF s/p AICD, PAF on eliquis, Vtach, ESRD on HD MWF, medically managed cholecystitis who follows with Juan Antonio comes in with c/o not feeling well with chills n/v/d and weakness no sick contacts, food exposures, antibiotics at this time labs, viral panel, CXR, does not make urine, IVF, zofran and US of gallbladder ordered. 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 Lanza - aware likely demand - I am going to hold aspirin given her low plts and eliquis use she has no chest pain and she is high risk for bleeds Dr. Romano - will follow Lab Data MDM Lab Attestation statement: I reviewed the patient's lab results. 09/14/23 01:40 09/14/23 01:40 Labs: Lab Results 09/14/23 09/14/23 Range/Units 01:40 08:39 WBC 7.7 (4.8-10.8) X10*3/uL RBC 3.57 L (4.20-5.50) X10*6/uL Hgb 10.5 L (12.0-16.0) g/dl Hct 34.0 L (37.0-47.0) % MCV 95.2 (80.0-98.0) fL MCH 29.4 (27.0-33.0) pg MCHC 30.9 L (31.0-35.0) g/dl RDW 15.3 (11.0-16.0) % Plt Count 87 L (160-400) X10*3/uL MPV 9.7 (9.4-12.3) fL Immature Gran % (Auto) 0.6 H (0.0-0.4) % Neut % (Auto) 82.1 H (45-73) % Lymph % (Auto) 6.3 L (20-40) % [place] % (Auto) 10.3 (2-11) % Eos % (Auto) 0.4 (0-4) % Baso % (Auto) 0.3 (0-2) % Lymph # (Auto) 0.5 L (1.2-4.9) X10*3/uL [place] # (Auto) 0.8 (0.1-1.2) X10*3/uL Eos # (Auto) 0.0 (0.0-0.4) X10*3/uL Baso # (Auto) 0.0 (0.0-0.2) X10*3/uL Abs Immat Gran (auto) 0.05 H (0.00-0.03) X10*3/uL Absolute Neuts (auto) 6.3 (2.0-8.3) x10*3/uL Absolute Nucleated RBC 0.000 (0.0-0.012) X10*3/uL Nucleated RBC % (auto) 0.0 (0.0-0.2) /100WBC Sodium 135 (135-145) mmol/L Potassium 4.8 (3.3-5.1) mmol/L Chloride 99 (96-108) mmol/L Carbon Dioxide 21 L (22-29) mmol/L Anion Gap 20 (12-20) BUN 40 H (9-16) mg/dL Creatinine 4.93 H* (0.5-1.4) mg/dL Estim Creat Clear Calc 7.7 Estimated GFR 9 Random Glucose 120 H (60-115) mg/dL Lactic Acid 2.0 (0.5-2.0) mmol/L Calcium 9.0 (8.4-10.2) mg/dL Total Bilirubin 1.0 (0.0-1.0) mg/dL AST 24 (5-31) U/L ALT 10 (0-31) U/L Alkaline Phosphatase 277 H (39-117) U/L Troponin I High Sens 30.7 H 62.7 H* D (<3.5-17.0) ng/L Total Protein 7.4 (6.5-8.0) g/dL Albumin 3.1 L (3.5-5.0) g/dL Lipase 65 (8-78) U/L Influenza Type A (PCR) NEGATIVE (Negative) Influenza Type B (PCR) NEGATIVE (Negative) RSV RNA Qual (PCR) NEGATIVE (Negative) SARS-CoV-2 RNA (RT-PCR) NEGATIVE (Negative) Independent Interpretation I performed an independent interpretation of an: EKG and Ultrasound (chronic cholecystitis) Interpretation: Rate: 63 Rhythm: NSR [place]: normal Normal P waves. Normal MIGUELANGEL. Normal QRS complex. ST T wave : no JONAH, inverted t waves III, V1-V3 qTC: normal prior studies: no sig change from priors The study has been interpreted contemporaneously by me. . Radiology Impression Discussion of test interpretation with radiology: I have reviewed the radiologist's reading. Independent Historian Clinical information obtained from an independent historian. History obtained from or confirmed by: EMS External Record Review External record reviewed: Inpatient record Discharge Plan Discharge Clinical Impression: Nausea & vomiting, Cholecystitis, chronic, Elevated troponin Patient Disposition: Admitted As Inpatient Prescriptions: No Action magnesium oxide 400 mg (241.3 mg magnesium) tablet 400 mg PO DAILY Qty: 90 3RF Eliquis 2.5 mg tablet 2.5 mg PO BID Qty: 60 5RF carvedilol 3.125 mg tablet 3.125 mg PO BID Qty: 60 10RF amiodarone 200 mg tablet 100 mg PO DAILY 90 Days Qty: 45 3RF loratadine 10 mg tablet 10 mg PO Q2D calcium carbonate-vitamin D3 600 mg-10 mcg (400 unit) tablet 1 tab PO BEDTIME lidocaine-prilocaine 2.5-2.5 % cream 1 appl topical MOWEFR sevelamer carbonate 800 mg tablet 1 tab PO TID acetaminophen 325 mg Tablet 650 mg PO Q4H PRN (Reason: Pain (Scale Score 1-3)) oseltamivir [Tamiflu] 75 mg capsule 75 mg PO BID 5 Days Qty: 10 0RF benzonatate 200 mg capsule 200 mg PO TID PRN (Reason: cough) Qty: 20 0RF atorvastatin 80 mg tablet 80 mg PO BEDTIME oxycodone 5 mg tablet 5 mg PO TID PRN (Reason: pain) Qty: 10 0RF Rx Instructions: Partial Fill upon patient request. doxycycline hyclate 100 mg tablet 100 mg PO BID Print Language: Scottish
[2023-09-14] MEDS: ondansetron HCL 4 MG/2 ML VIAL IVPUSH (08:43)
[2023-09-14 09:12] LABS: Troponin-I High Sensitivity 62.7 ng/L (<3.5-17.0)
--- NOTE | 2023-09-14 09:24 | PC.NURSE ---
22g IV inserted left forearm. labs drawn and sent. blood cultures sent to lab. no venipuncture of BP on right arm, pt has AV fistula.
--- NOTE | 2023-09-14 11:26 | P.CONGS_ITS ---
History of Present Illness Consult details Consult date: 09/14/23 Narrative: [age] year old female here in the ER because of what she describes as severe weakness. The ER had reported she had complained of nausea and vomiting as well. She denies any abdominal pain. She is well known to me for a positive HIDA scan in 2021. At that time, she was treated nonsurgically for gallstones and cholecystitis does have multiple medical problems. She has a long history of acute and chronic heart failure, valvular heart disease, end-stage renal disease on hemodialysis and atrial fibrillation She has had progression of her valvular heart disease on her last echocardiogram in 2022 and her EF was 30%. Again she currently denies any abdominal pain at this time. Review of Systems 2 Constitutional: Constitutional: Denies chills, Denies malaise and Denies weakness Cardiovascular: Cardiovascular: Denies chest pain, Denies chest pain at rest and Reports dyspnea on exertion Respiratory: Respiratory: Reports dyspnea on exertion Gastrointestinal: Gastrointestinal: Denies abdominal pain Genitourinary: Comments: On hemodialysis Musculoskeletal: Musculoskeletal: Reports myalgias Neurologic: Denies weakness [facility] Past Medical History Medical History (Updated 09/15/23 @ 10:47 by Lee Lanza MD) CAD (coronary artery disease) Ischemic cardiomyopathy Gallstones Elevated bilirubin ESRD (end stage renal disease) on dialysis ESRD (end stage renal disease) Hyperlipidemia HTN (hypertension) Ventricular tachycardia Paroxysmal atrial fibrillation ICD (implantable cardioverter-defibrillator) in place Family History Family History Father No problems noted. Mother No problems noted. 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) Unable to assess alcohol history related to: Unknown Alcohol intake: never Patient Tobacco Use Status: Never used Tobacco service: No Current occupational status: unemployed and disabled Meds Allergies Allergy/AdvReac Type Severity Reaction Status Date / Time NSAIDS (Non-Steroidal Allergy Unknown Unknown Verified 09/14/23 01:36 Anti-Inflamma Home Medications ?Medication ?Instructions ?Recorded ?Confirmed ?Last Taken ?Type atorvastatin 80 mg tablet 80 mg PO BEDTIME 04/20/20 09/14/23 03/02/22 History loratadine 10 mg tablet 10 mg PO Q2D 05/10/21 09/14/23 03/02/22 History acetaminophen 325 mg tablet 650 mg PO Q4H PRN Pain (Scale 01/30/22 09/14/23 Unknown History Score 1-3) sevelamer carbonate 800 mg tablet 1 tab PO BID 01/30/22 09/14/23 03/02/22 History polymyxin B sulfate 10,000 1 drp ophthalmic-Right QID 09/14/23 09/14/23 09/13/23 History unit-trimethoprim 1 mg/mL eye drops Physical Exam 2 Vital Signs: Vital Signs: Last Vital Signs Temp 97.6 F 09/14/23 06:04 Pulse 62 09/14/23 08:21 Resp 16 09/14/23 08:21 BP 117/51 L 09/14/23 08:21 Pulse Ox 94 09/14/23 08:21 O2 Del Method Room Air 09/14/23 08:21 BMI result Body Mass Index 23.9 Const: Other: Frail appearing and weak but answers questions well General: comfortable and no acute distress Resp: Effort & Inspection: normal respiratory effort Cardio: Rhythm: abnormal rhythm GI: Other: No Solis's sign Palpation (GI): Soft to palpation, not firm, nontender and no guarding Results Labs 09/14/23 01:40 09/15/23 11:21 Labs: Abnormal lab results 09/14/23 09/14/23 Range/Units 01:40 08:39 RBC 3.57 L (4.20-5.50) X10*6/uL Hgb 10.5 L (12.0-16.0) g/dl Hct 34.0 L (37.0-47.0) % MCHC 30.9 L (31.0-35.0) g/dl Plt Count 87 L (160-400) X10*3/uL Immature Gran % (Auto) 0.6 H (0.0-0.4) % Neut % (Auto) 82.1 H (45-73) % Lymph % (Auto) 6.3 L (20-40) % Lymph # (Auto) 0.5 L (1.2-4.9) X10*3/uL Abs Immat Gran (auto) 0.05 H (0.00-0.03) X10*3/uL Carbon Dioxide 21 L (22-29) mmol/L BUN 40 H (9-16) mg/dL Creatinine 4.93 H* (0.5-1.4) mg/dL Random Glucose 120 H (60-115) mg/dL Alkaline Phosphatase 277 H (39-117) U/L Troponin I High Sens 30.7 H 62.7 H* D (<3.5-17.0) ng/L Albumin 3.1 L (3.5-5.0) g/dL Short CBC 09/14/23 Range/Units 01:40 WBC 7.7 (4.8-10.8) X10*3/uL Hgb 10.5 L (12.0-16.0) g/dl Hct 34.0 L (37.0-47.0) % Plt Count 87 L (160-400) X10*3/uL BMP 09/14/23 01:40 Sodium 135 Potassium 4.8 Chloride 99 Carbon Dioxide 21 L BUN 40 H Creatinine 4.93 H* Calcium 9.0 Liver Function 09/14/23 Range/Units 01:40 Total Bilirubin 1.0 (0.0-1.0) mg/dL AST 24 (5-31) U/L ALT 10 (0-31) U/L Alkaline Phosphatase 277 H (39-117) U/L Albumin 3.1 L (3.5-5.0) g/dL All other labs normal. Assessment and Plan (1) Cholecystitis, chronic: Status: Acute She is well known to me for history of cholecystitis in the past. She has multiple medical problems and she has decided not to undergo any surgery for her gallstones. I have reviewed her ultrasound and this is more suggestive of chronic cholecystitis than acute cholecystitis. She does not have any tenderness at all. She has no leukocytosis Her troponin is elevated. She does complain of malaise, weakness and overall a sense of being unwell She is going to be admitted to the medical service. I can follow along while she is in the hospital. No surgical intervention is planned at this time. Procedures Date of Service Date of Service: 09/21/23
[2023-09-14] MEDS: cefTRIAXone sodium 1 GM in 0.9 % Sodium Chloride 50 ML IV (11:41)
--- NOTE | 2023-09-14 13:18 | PHA.MEDREC ---
Pharmacy Consult ? Medication Reconciliation Pharmacy has completed the medication reconciliation. Hand Plug Shaper used. Patient stated she stopped her calcium and vitamin D because she saw something on TV about it causing side effects . Patient started her polymyxin eye drops yesterday, it is to be placed into the right eye four times a day x 7 days.
--- NOTE | 2023-09-14 15:11 | P.HPHOSP_ITS ---
History of Present Illness Date of Service: 09/14/23 Attending physician on admission: Jorge L Hopper Chief Complaint: weakness This is a 73-year-old [place]uran-speaking female who presents to the emergency department with weakness. Yesterday she reported having chills and then generalized weakness. She had an episode of nausea and vomiting but denies any abdominal pain or associated diarrhea. She denies any recent sick contacts, chest pain, shortness and breath. She does endorse an intermittent dry cough. In the emergency department she underwent an ultrasound of her abdomen which showed negative Solis's sign but gallbladder thickening similar to previous. Prior MRCP also showed gallbladder wall thickening. Chest x-ray was unremarkable. Patient was afebrile. EKG revealed new T-wave inversions and troponin increased from 30-62. For this reason the decision was made to admit her overnight for observation. Review of Systems 2 Review of Systems: Yes all other systems are reviewed and are negative Constitutional: Constitutional: Reports chills and Denies fever(s) Cardiovascular: Cardiovascular: Denies chest pain, Denies palpitations and Denies dyspnea Respiratory: Respiratory: Reports cough and Denies dyspnea Gastrointestinal: Gastrointestinal: Denies abdominal pain, Denies nausea and Denies vomiting Endocrine: Endocrine: Denies palpitations [facility] Medical History Gallstones Elevated bilirubin ESRD (end stage renal disease) on dialysis ESRD (end stage renal disease) Hyperlipidemia HTN (hypertension) CAD (coronary artery disease) Ventricular tachycardia Paroxysmal atrial fibrillation ICD (implantable cardioverter-defibrillator) in place Ischemic cardiomyopathy Functional capacity: uses cane/walker Family History Father No problems noted. Mother No problems noted. 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) Unable to assess alcohol history related to: Unknown Alcohol intake: never Patient Tobacco Use Status: Never used Tobacco Advance Directives: No Advance Directives Information Provided: Yes Do you have a plan to hurt others: No Plan service: No Current occupational status: unemployed and disabled Meds Allergies Allergy/AdvReac Type Severity Reaction Status Date / Time NSAIDS (Non-Steroidal Allergy Unknown Unknown Verified 09/14/23 01:36 Anti-Inflamma Active Medications: Current Medications Acetaminophen (Acetaminophen 325 Mg Tablet) 650 mg PO Q6H PRN PRN Reason: Pain, Mild (Pain Scale 1-3) Amiodarone HCl (Amiodarone Hcl 200 Mg Tablet) 100 mg PO DAILY [facility] Apixaban (Apixaban 2.5 Mg Tablet) 2.5 mg PO BID [facility] Atorvastatin Calcium (Atorvastatin Calcium 80 Mg Tablet) 80 mg PO BEDTIME JOHAN Carvedilol (Carvedilol 3.125 Mg Tablet) 3.125 mg PO BID [facility]; Protocol Loratadine (Loratadine 10 Mg Tablet) 10 mg PO Q2D [facility] Magnesium Oxide (Magnesium Oxide 400 Mg Tablet) 400 mg PO DAILY [facility] Non-Formulary Medication (Polymyxin B Sulf-Trimethoprim) 1 drop EYE-RIGHT QID [facility] Ondansetron HCl (Ondansetron Hcl 4 Mg/2 Ml Vial) 4 mg IVPUSH Q8H PRN PRN Reason: Nausea and Vomiting Sevelamer Carbonate (Sevelamer Carbonate Tablet 800 Mg Tablet) 800 mg PO BID [facility] Sodium Chloride (0.9 % Sodium Chloride Flush 3 Ml Syringe) 3 ml IVFLUSH QSHIFT [facility] Home Medications ?Medication ?Instructions ?Recorded ?Confirmed ?Last Taken ?Type atorvastatin 80 mg tablet 80 mg PO BEDTIME 04/20/20 09/14/23 03/02/22 History loratadine 10 mg tablet 10 mg PO Q2D 05/10/21 09/14/23 03/02/22 History acetaminophen 325 mg tablet 650 mg PO Q4H PRN Pain (Scale 01/30/22 09/14/23 Unknown History Score 1-3) sevelamer carbonate 800 mg tablet 1 tab PO BID 01/30/22 09/14/23 03/02/22 History polymyxin B sulfate 10,000 1 drp ophthalmic-Right QID 09/14/23 09/14/23 09/13/23 History unit-trimethoprim 1 mg/mL eye drops Physical Exam 2 Vital Signs and Narrative: Vital Signs: Last Vital Signs Temp 98.5 F 09/14/23 13:25 Pulse 64 09/14/23 13:25 Resp 18 09/14/23 13:25 BP 114/60 09/14/23 13:25 Pulse Ox 96 09/14/23 13:25 O2 Del Method Room Air 09/14/23 13:25 BMI result Body Mass Index 23.9 Const: General: cooperative, comfortable, no acute distress, alert and awake Nutritional Appearance: thin Orientation/consciousness: patient oriented x3 Eyes: Other: injected Resp: Effort & Inspection: normal respiratory effort, able to speak in complete sentences, no respiratory distress and no use of accessory muscles Cardio: Rate: regular rate GI: Inspection: No distended Palpation (GI): Soft to palpation and nontender Neuro: General: patient oriented x3, moves all extremities and CN's II-XI intact bilaterally Extrem: General: Yes no pedal edema Results Labs 09/14/23 01:40 09/14/23 01:40 Labs: Laboratory Results - last 24 hr 09/14/23 09/14/23 01:40 08:39 MCV 95.2 MCH 29.4 MCHC 30.9 L RDW 15.3 Plt Count 87 L MPV 9.7 Immature Gran % (Auto) 0.6 H Neut % (Auto) 82.1 H Lymph % (Auto) 6.3 L [place] % (Auto) 10.3 Eos % (Auto) 0.4 Baso % (Auto) 0.3 Lymph # (Auto) 0.5 L [place] # (Auto) 0.8 Eos # (Auto) 0.0 Baso # (Auto) 0.0 Abs Immat Gran (auto) 0.05 H Absolute Neuts (auto) 6.3 Absolute Nucleated RBC 0.000 Nucleated RBC % (auto) 0.0 Anion Gap 20 Estim Creat Clear Calc 7.7 Estimated GFR 9 Random Glucose 120 H Lactic Acid 2.0 Calcium 9.0 Total Bilirubin 1.0 AST 24 ALT 10 Alkaline Phosphatase 277 H Troponin I High Sens 30.7 H 62.7 H* D Total Protein 7.4 Albumin 3.1 L Lipase 65 Influenza Type A (PCR) NEGATIVE Influenza Type B (PCR) NEGATIVE RSV RNA Qual (PCR) NEGATIVE SARS-CoV-2 RNA (RT-PCR) NEGATIVE Imaging Radiologist's Impressions: Impressions Chest X-Ray 09/14/23 07:30 IMPRESSION: Stable examination compared to 06/10/2023. Abdomen Ultrasound 09/14/23 08:05 IMPRESSION: 1. Cirrhotic liver morphology with small volume of ascites. 2. Cholelithiasis with gallbladder wall thickening and small volume of pericholecystic free fluid. Negative Solis's sign. These findings are nonspecific and could be related with underlying cirrhosis and ascites, recommend clinical correlation. Prior MRCP from 02/07/2022 also demonstrated gallbladder wall thickening, recommend clinical correlation for chronic cholecystitis. 3. Atrophic right kidney with cortical thinning and increased cortical echogenicity suggesting chronic renal disease. Assessment and Plan (1) Elevated troponin: Status: Acute (2) Nausea & vomiting: Qualifiers: Vomiting type: unspecified Qualified Code(s): R11.2 - Nausea with vomiting, unspecified Status: Acute Plan This is a 73-year-old [place]uran-speaking female with a history of end- stage renal disease on hemodialysis Sunday, Sunday, Sunday, ischemic cardiomyopathy, hypertension who presents to the emergency department with weakness found to have concern over chronic cholecystitis as well as elevation in cardiac enzymes. Elevated cardiac enzymes/ischemic cardiomyopathy prior inferior inferolateral territory [place] EKG with new T-wave inversions No chest pain at this time Cardiology consult pending Continue statin, beta-dilma, anticoagulation with Eliquis Nausea/vomiting Resolved Possible chronic cholecystitis History of cholelithiasis, has declined surgical intervention in the past No abdominal pain at this time Seen by General surgery, no plan for surgical intervention at this time ESRD on HD WMF did not go to HD today, last HD Sunday Will consult nephrology for inpatient dialysis continue renvela Paroxysmal atrial fibrillation Continue Eliquis, amiodorone DVT prophylaxis-Eliquis Code status-full code Quality Stroke Does the patient have a stroke diagnosis?: No VTE Prior VTE?: No VTE Risk Level:: Medical - moderate - high VTE Device Contraindication: N/A - Device Ordered VTE Drug Contraindication: N/A - Med Ordered
[2023-09-14 16:08] LABS: Troponin-I High Sensitivity 53.8 ng/L (<3.5-17.0)
--- NOTE | 2023-09-14 19:16 | PM.EVENT ---
Event Note Date of Service: 09/14/23 Event Note: End Stage Renal Disease patient who gets HD MWF. Has not had HD since Sun. No indication for HD tonight. Ordered HD for AM. If staying in the hospital, will get HD on MWF after tomorrow. Jesse Franco MD
[2023-09-14] MEDS: Atorvastatin Calcium 80 MG TABLET PO (20:22)
[2023-09-14] MEDS: Sevelamer Carbonate Tablet 800 MG TABLET PO (20:22)
[2023-09-14] MEDS: Apixaban 2.5 MG TABLET PO (20:22)
[2023-09-14] MEDS: carvediloL 3.125 MG TABLET PO (21:14)
[2023-09-15] VITALS: BP 132/70; PULSE 77; RESP 18; TEMP 36.4; O2SAT 100
[2023-09-15 04:00] VITALS: BP 119/55; PULSE 70; RESP 19; TEMP 36.7; O2SAT 96
--- NOTE | 2023-09-15 09:36 | P.PNGS_ITS ---
Subjective Subjective Date of Service: 09/15/23 Interval history: has body malaise feels weak denies abdl pain no vomitting Physical Exam 2 Vital Signs: Vital Signs: Last Vital Signs Temp 98.0 F 09/15/23 04:00 Pulse 70 09/15/23 04:00 Resp 19 09/15/23 04:00 BP 119/55 L 09/15/23 04:00 Pulse Ox 96 09/15/23 04:00 O2 Del Method Room Air 09/15/23 04:00 BMI result Body Mass Index 23.9 Const: General: comfortable, no acute distress and tired appearing Resp: Effort & Inspection: normal respiratory effort Cardio: Rhythm: abnormal rhythm GI: Palpation (GI): Soft to palpation, not firm, nontender and no guarding Objective Data Active Medications Acetaminophen (Acetaminophen 325 Mg Tablet) 650 mg PO Q6H PRN PRN Reason: Pain, Mild (Pain Scale 1-3) Amiodarone HCl (Amiodarone Hcl 200 Mg Tablet) 100 mg PO DAILY [facility] Apixaban (Apixaban 2.5 Mg Tablet) 2.5 mg PO BID [facility] Last Admin: 09/14/23 20:22 Dose: 2.5 mg Documented By: PUSHPA Atorvastatin Calcium (Atorvastatin Calcium 80 Mg Tablet) 80 mg PO BEDTIME [facility] Last Admin: 09/14/23 20:22 Dose: 80 mg Documented By: PUSHPA Carvedilol (Carvedilol 3.125 Mg Tablet) 3.125 mg PO BID [facility]; Protocol Last Admin: 09/14/23 21:14 Dose: 3.125 mg Documented By: PUSHPA Lidocaine HCl (Lidocaine Hcl 1 % Mpf 2 Ml Vial) 0.5 ml SUBCUT MOWEFR@1645 [facility] Loratadine (Loratadine 10 Mg Tablet) 10 mg PO Q2D [facility] Magnesium Oxide (Magnesium Oxide 400 Mg Tablet) 400 mg PO DAILY [facility] Non-Formulary Medication (Polymyxin B Sulf-Trimethoprim) 1 drop EYE-RIGHT QID [facility] Ondansetron HCl (Ondansetron Hcl 4 Mg/2 Ml Vial) 4 mg IVPUSH Q8H PRN PRN Reason: Nausea and Vomiting Sevelamer Carbonate (Sevelamer Carbonate Tablet 800 Mg Tablet) 800 mg PO BID [facility] Last Admin: 09/14/23 20:22 Dose: 800 mg Documented By: PUSHPA Sodium Chloride (0.9 % Sodium Chloride Flush 3 Ml Syringe) 3 ml IVFLUSH QSHIFT [facility] Last Admin: 09/15/23 09:20 Dose: Not Given Documented By: PAUL Non-Admin Reason: Off unit: Dialysis Labs 09/14/23 01:40 09/14/23 01:40 Labs: Laboratory Results - last 24 hr 09/14/23 15:25 Troponin I High Sens 53.8 H* Procedures Date of Service Date of Service: 09/15/23 Progress Note: A&P Assessment and plan (1) Cholecystitis, chronic: Status: Acute Assessment and Plan: nontender no GI complaints no leukocystosis ongoing dialysis troponin elevated care as per Medical service no surgical intervention planned Time Spent With Patient Time: Total time managing care of this patient today ____ minutes. Quality Stroke Does the patient have a stroke diagnosis?: No VTE Prior VTE?: No VTE Risk Level:: Medical - moderate - high VTE Device Contraindication: N/A - Device Ordered VTE Drug Contraindication: N/A - Med Ordered
[2023-09-15 10:00] VITALS: BP 151/70; PULSE 70; RESP 12; TEMP 36.2; O2SAT 100
[2023-09-15 10:11] VITALS: BP 151/70; PULSE 78
[2023-09-15] MEDS: carvediloL 3.125 MG TABLET PO (10:11)
[2023-09-15] MEDS: Magnesium Oxide 400 MG TABLET PO (10:11)
[2023-09-15] MEDS: Apixaban 2.5 MG TABLET PO (10:14)
[2023-09-15] MEDS: Amiodarone HCL 200 MG TABLET 100 MG PO (10:14)
--- NOTE | 2023-09-15 10:40 | PM.CNCAR ---
History of Present Illness History of Present Illness Date of Service: 09/15/23 Chief complaint: weakness Narrative: This is a cardiology consultation regarding question of EKG changes. Patient has history of ischemic cardiomyopathy. Prior inferior infarction. She also has an ICD in place. She is ESRD on hemodialysis. Paroxysmal atrial fibrillation/ventricular tachycardia. There was a question of EKG changes and hence she is admitted. From the cardiac standpoint, she denies any symptoms like chest pain or shortness of breath or in fact anything cardiac sounding. She is currently getting hemodialysis. Review of Systems Review of Systems: Yes all other systems are reviewed and are negative Constitutional: Constitutional: Reports as per HPI and Reports no additional constitutional complaints Eyes: Eyes: Reports as per HPI and Denies no additional eye complaints ENT: Denies system reviewed and no additional complaints, except as documented and Reports as per HPI Cardiovascular: Cardiovascular: Reports as per HPI, Reports no additional cardiovascular complaints, Denies acrocyanosis, Denies cool extremities, Denies chest pain, Denies leg edema, Denies lightheadedness, Denies palpitations and Denies dyspnea Respiratory: Respiratory: Reports as per HPI, Denies no additional respiratory complaints and Denies dyspnea Gastrointestinal: Gastrointestinal: Reports as per HPI and Denies no additional gastrointestinal complaints Genitourinary: Genitourinary: Reports as per HPI Musculoskeletal: Musculoskeletal: Reports no additional musculoskeletal complaints and Reports as per HPI Integumentary/Breasts: Skin/Breast: Reports system reviewed and no additional complaints, except as docu Neurologic: Reports system reviewed and no additional complaints, except as documented and Reports as per HPI Psychiatric: Psychiatric: Reports no additional psychiatric complaints and Reports as per HPI Endocrine: Endocrine: Reports no additional endocrine complaints, Reports as per HPI and Denies palpitations Hematologic/Lymphatic: Hematologic/Lymphatic: Reports no additional hematologic/lymphatic complaints and Reports as per HPI Allergic/Immunologic: Allergic/Immunologic: Reports no additional allergic/immunologic complaints and Reports as per HPI [facility] Past Medical History Medical History (Updated 09/15/23 @ 10:47 by Lee Lanza MD) CAD (coronary artery disease) Ischemic cardiomyopathy Gallstones Elevated bilirubin ESRD (end stage renal disease) on dialysis ESRD (end stage renal disease) Hyperlipidemia HTN (hypertension) Ventricular tachycardia Paroxysmal atrial fibrillation ICD (implantable cardioverter-defibrillator) in place Family History Family History Father No problems noted. Mother No problems noted. 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) Unable to assess alcohol history related to: Unknown Alcohol intake: never Patient Tobacco Use Status: Never used Tobacco Currently Displaying Signs/Symptoms of Drug Intoxication Withdrawal: No Advance Directives: No Advance Directives Information Provided: Yes Do you have a plan to hurt others: No Plan service: No Current occupational status: unemployed and disabled Meds Allergies Allergy/AdvReac Type Severity Reaction Status Date / Time NSAIDS (Non-Steroidal Allergy Unknown Unknown Verified 09/14/23 01:36 Anti-Inflamma Active Medications: Current Medications Acetaminophen (Acetaminophen 325 Mg Tablet) 650 mg PO Q6H PRN PRN Reason: Pain, Mild (Pain Scale 1-3) Amiodarone HCl (Amiodarone Hcl 200 Mg Tablet) 100 mg PO DAILY [facility] Last Admin: 09/15/23 10:14 Dose: 100 mg Apixaban (Apixaban 2.5 Mg Tablet) 2.5 mg PO BID [facility] Last Admin: 09/15/23 10:14 Dose: 2.5 mg Atorvastatin Calcium (Atorvastatin Calcium 80 Mg Tablet) 80 mg PO BEDTIME [facility] Last Admin: 09/14/23 20:22 Dose: 80 mg Carvedilol (Carvedilol 3.125 Mg Tablet) 3.125 mg PO BID [facility]; Protocol Last Admin: 09/15/23 10:11 Dose: 3.125 mg Lidocaine HCl (Lidocaine Hcl 1 % Mpf 2 Ml Vial) 0.5 ml SUBCUT MOWEFR@1645 [facility] Loratadine (Loratadine 10 Mg Tablet) 10 mg PO Q2D [facility] Last Admin: 09/15/23 10:15 Dose: Not Given Magnesium Oxide (Magnesium Oxide 400 Mg Tablet) 400 mg PO DAILY [facility] Last Admin: 09/15/23 10:11 Dose: 400 mg Non-Formulary Medication (Polymyxin B Sulf-Trimethoprim) 1 drop EYE-RIGHT QID [facility] Ondansetron HCl (Ondansetron Hcl 4 Mg/2 Ml Vial) 4 mg IVPUSH Q8H PRN PRN Reason: Nausea and Vomiting Sevelamer Carbonate (Sevelamer Carbonate Tablet 800 Mg Tablet) 800 mg PO BID [facility] Last Admin: 09/15/23 10:04 Dose: Not Given Sodium Chloride (0.9 % Sodium Chloride Flush 3 Ml Syringe) 3 ml IVFLUSH QSHIFT [facility] Last Admin: 09/15/23 09:20 Dose: Not Given Home Medications ?Medication ?Instructions ?Recorded ?Confirmed ?Last Taken ?Type atorvastatin 80 mg tablet 80 mg PO BEDTIME 04/20/20 09/14/23 03/02/22 History loratadine 10 mg tablet 10 mg PO Q2D 05/10/21 09/14/23 03/02/22 History acetaminophen 325 mg tablet 650 mg PO Q4H PRN Pain (Scale 01/30/22 09/14/23 Unknown History Score 1-3) sevelamer carbonate 800 mg tablet 1 tab PO BID 01/30/22 09/14/23 03/02/22 History polymyxin B sulfate 10,000 1 drp ophthalmic-Right QID 09/14/23 09/14/23 09/13/23 History unit-trimethoprim 1 mg/mL eye drops Physical Exam Vital Signs: Vital Signs: Last Vital Signs Temp 98.0 F 09/15/23 04:00 Pulse 78 09/15/23 10:11 Resp 19 09/15/23 04:00 BP 151/70 H 09/15/23 10:11 Pulse Ox 96 09/15/23 04:00 O2 Del Method Room Air 09/15/23 04:00 BMI result Body Mass Index 23.9 Const: General: comfortable and no acute distress Orientation/consciousness: patient oriented x3 HEENT: Other: Unremarkable Head: Yes normal to inspection Neck: Neck: Yes normal visual inspection Chest: Chest palpation & inspection: normal inspection of the chest Resp: Auscultation: clear to auscultation bilaterally Cardio: Palpation: normal PMI Heart sounds: S1 normal heart sound present, S2 normal heart sound present, no gallops, no murmurs and no rubs GI: Palpation (GI): Soft to palpation Back/Spine/Pelvis: Other: unremarkable Skin: General skin exam: no rashes or lesions noted Neuro: General: patient oriented x3 Extrem: General: Yes normal to inspection Psych: Mental Status: mental status grossly normal Objective Labs and Meds 09/14/23 01:40 09/14/23 01:40 Lab results: Laboratory Results - last 24 hr 09/14/23 15:25 Troponin I High Sens 53.8 H* ECG Interpretation: EKG shows sinus rhythm with T inversions in the anterior as well as inferior leads. This is different from prior EKG from 1 year ago. However, going back 2021, changes were again seen to an extent. Assessment and Plan (1) Abnormal EKG: Status: Acute (2) CAD (coronary artery disease): Status: Acute (3) Ischemic cardiomyopathy: Status: Acute (4) ICD (implantable cardioverter-defibrillator) in place: Status: Acute (5) Paroxysmal atrial fibrillation: Status: Acute Plan Nonspecific symptoms of any chest pain. T inversions on the EKG in the anterior inferior leads. Not seen in the last EKG but partially seen in the earlier EKGs. Troponin levels are 30, 62 and 53 but she also has ESRD. Last echocardiogram from 2022 with LVEF of 30-35%; basal inferior/mid inferior/basal inferolateral akinesis. Biatrial enlargement with moderate mitral stenosis/regurgitation. [id number] tricuspid regurgitation and moderate pulmonary hypertension. Last myocardial perfusion imaging study from 2019 with basal/mid inferior/inferolateral infarction without ischemia. LVEF was 45%. Overall, EKG changes but in the absence of chest pain or other cardiac symptoms. She has many comorbidities, frail, on dialysis. Somewhat low platelets and also on anticoagulation. In this context, would rather not be aggressive. Continue her current medications. It seems that she is already due for an outpatient stress test coming up. Can keep that appointment. Discussed with Christiane Tom. Procedures Date of Service Date of Service: 09/15/23
[2023-09-15 11:19] VITALS: BP 138/61; PULSE 71; RESP 18; TEMP 36.4; O2SAT 96
--- NOTE | 2023-09-15 11:32 | PM.DS ---
DS: Providers Provider Date of Service: 09/15/23 Date of admission: 09/14/23 15:06 Date of discharge: 09/15/23 Primary care physician: Unknown Physician Consults: 09/14/23 09:17 Consult to Cardiology Stat Consulting Provider: [facility] Reason for consultation: elevated troponin, 09/14/23 09:20 Consult to General Surgery Stat Consulting Provider: [facility] Reason for consultation: chronic cholecystitis Has provider been notified: Yes 09/14/23 15:09 Consult to Cardiology Routine Consulting Provider: [facility] Reason for consultation: elevated trop Has provider been notified: No 09/14/23 15:20 Consult to Nephrology Routine Consulting Provider: [facility] Reason for consultation: ESRD on HD Has provider been notified: No Attending physician on discharge: Josee Baig Discharging clinician: Christiane Tom DS: Diagnosis Discharge Diagnosis (1) Abnormal EKG: Status: Acute (2) CAD (coronary artery disease): Status: Acute (3) Ischemic cardiomyopathy: Status: Acute (4) ICD (implantable cardioverter-defibrillator) in place: Status: Acute (5) Paroxysmal atrial fibrillation: Status: Acute DS: Summary Hospital Course Hospital Course: From H&P on the day of admission This is a 73-year-old Andorran-speaking female who presents to the emergency department with weakness. Yesterday she reported having chills and then generalized weakness. She had an episode of nausea and vomiting but denies any abdominal pain or associated diarrhea. She denies any recent sick contacts, chest pain, shortness and breath. She does endorse an intermittent dry cough. In the emergency department she underwent an ultrasound of her abdomen which showed negative Solis's sign but gallbladder thickening similar to previous. Prior MRCP also showed gallbladder wall thickening. Chest x-ray was unremarkable. Patient was afebrile. EKG revealed new T-wave inversions and troponin increased from 30-62. For this reason the decision was made to admit her overnight for observation. Elevated cardiac enzymes/ischemic cardiomyopathy prior inferior inferolateral territory CA. EKG with new T-wave inversions compared to previous. Troponin levels are 30, 62 and 53 but she also has ESRD. Last echocardiogram from 2022 with LVEF of 30-35%; basal inferior/mid inferior/basal inferolateral akinesis. Biatrial enlargement with moderate mitral stenosis/regurgitation. [id number] tricuspid regurgitation and moderate pulmonary hypertension. Last myocardial perfusion imaging study from 2019 with basal/mid inferior/inferolateral infarction without ischemia. LVEF was 45%. Overall, EKG changes but in the absence of chest pain or other cardiac symptoms. Seen by Cardiology, recommend conservative management. Has outpatient stress test scheduled, recommend to keep scheduled appointment. Nausea/vomiting Resolved prior to admission chronic cholecystitis History of cholelithiasis, has declined surgical intervention in the past. No abdominal pain, nausea and vomiting resolved. Ultrasound showing cholelithiasis with gallbladder wall thickening, negative Solis's sign. Nonspecific findings could be related to underlying cirrhosis. Prior MRCP from 2021 also showed gallbladder wall thickening. Seen by General surgery, no plan for surgical intervention at this time. No further workup during hospitalization required. ESRD on HD [facility] Missed hemodialysis on the day of admission. Was seen by Nephrology and underwent dialysis on September 14, the day of discharge. She will continue her dialysis as outpatient at her routine scheduled times. Generalized weakness has improved. She was evaluated by Physical therapy who recommended home with PT services Time Attestation Discharge Coordination Time (in mins): 32 Quality: Safe Use of Opioids Does Pt have an Active Cancer Diagnosis on the Problem List?: No Quality: Stroke Does the patient have a stroke diagnosis?: No Physical Exam Vital Signs: Vital Signs: Last Vital Signs Temp 97.6 F 09/15/23 11:19 Pulse 71 09/15/23 11:19 Resp 18 09/15/23 11:19 BP 138/61 09/15/23 11:19 Pulse Ox 96 09/15/23 11:19 O2 Del Method Room Air 09/15/23 11:19 BMI result Body Mass Index 23.9 Const: General: cooperative, comfortable, no acute distress, alert and awake Nutritional Appearance: thin Orientation/consciousness: patient oriented x3 Eyes: Other: injected Resp: Effort & Inspection: normal respiratory effort, able to speak in complete sentences, no respiratory distress and no use of accessory muscles Cardio: Rate: regular rate GI: Inspection: No distended Palpation (GI): Soft to palpation and nontender Neuro: General: patient oriented x3, moves all extremities and CN's II-XI intact bilaterally Extrem: General: Yes no pedal edema DS: Data Data Completed and Pending Completed studies during hospitalization [Text1]: Procedures Drainage of Peritoneal Cavity, Percutaneous Approach (05/10/21) Insertion of Infusion Device into Right Internal Jugular Vein, Percutaneous Approach (05/10/21) Insertion of Tunneled Vascular Access Device into Chest Subcutaneous Tissue and Fascia, Percutaneous Approach (05/10/21) Performance of Urinary Filtration, Intermittent, Less than 6 Hours Per Day (02/04/22) Labs on day of discharge: Laboratory Results - last 24 hr 09/14/23 15:25 Troponin I High Sens 53.8 H* Preliminary micro results at discharge 09/14/23 08:39 Blood Culture - Preliminary Blood - Venous No growth after 24 hours. 09/14/23 08:39 Blood Culture - Preliminary Blood - Venous No growth after 24 hours. Discharge Plan Discharge Patient Disposition: Home Health Service Discharge Diagnosis: nausea/vomiting resolved EKG changes Referrals: Physician,Jase J [Primary Care Provider] - 1 Week Discharge Medications: Continued magnesium oxide 400 mg (241.3 mg magnesium) tablet 400 mg PO DAILY Qty: 90 3RF Eliquis 2.5 mg tablet 2.5 mg PO BID Qty: 60 5RF carvedilol 3.125 mg tablet 3.125 mg PO BID Qty: 60 10RF amiodarone 200 mg tablet 100 mg PO DAILY 90 Days Qty: 45 3RF loratadine 10 mg tablet 10 mg PO Q2D sevelamer carbonate 800 mg tablet 1 tab PO BID acetaminophen 325 mg Tablet 650 mg PO Q4H PRN (Reason: Pain (Scale Score 1-3)) polymyxin B sulf-trimethoprim 10,000 unit- 1 mg/mL drops 1 drp ophthalmic-Right QID Rx Instructions: x 7 days, patient started this on 09/12 atorvastatin 80 mg tablet 80 mg PO BEDTIME Discharge Orders: Discharge Order (Routine); Ordered 09/15/23 Ordered By: Christiane Tom Activity on Discharge: As tolerated Stand Alone Forms: Patient Portal Discharge page Print Language: Andorran Care Plan Goals: see below Health Concerns: EKG changes Elevated cardiac enzymes Nausea/vomiting-resolved Plan of Treatment: Chronic gallbladder changes seen ultrasound. No abdominal pain. Seen by surgery, no further workup required EKG changes. Keep scheduled appointment for outpatient stress test. Nausea/vomiting-resolved no changes to any medications call to schedule follow up appointment with PCP as needed Assessment: See discharge summary Discharge Date/Time: 09/15/23 13:59
--- NOTE | 2023-09-15 11:48 | PC.NURSE ---
Patient in dialysis this morning when report received. Patient returned to assigned room at 10:00 am.
[2023-09-15 12:08] LABS: Anion Gap 20 (12-20); Blood Urea Nitrogen 19 mg/dL (9-16); Calcium 9.4 mg/dL (8.4-10.2); Carbon Dioxide 28 mmol/L (22-29); Chloride 96 mmol/L (96-108); Creatinine Clr Calc Pharmacy 13.1; Estimated Glomerular Filt Rate 16; Glucose Random 96 mg/dL (60-115); Potassium 4.3 mmol/L (3.3-5.1); Sodium 140 mmol/L (135-145)
--- NOTE | 2023-09-15 13:28 | W.MHC.F2F ---
Service Date Service Date: 09/15/23 Encounter Date of encounter: 09/15/23 Reasons for Services Signs and symptoms assessed: Gross deconditioning, impaired gait pattern, impaired standing balance, impaired transfer ability, muscle weakness Reason for physical therapy: home safety and mobility and therapeutic exercises Overseeing Care: Christiane Vernon Homebound: Leaving the home is medically contraindicated at this time without the asist of a device and/or another person due th the listed conditions above and below. Reason homebound: unsteady gait / fall risk Certification: Based on the above findings, I certify that this patient is confined to the home and needs intermittent prison care, physical therapy and/or speech therapy, or continues to need occupational therapy. The patient is under my care, and I have initiated the establishment of the plan of care. The patient will be followed by a physician who will periodically review the plan of care. Time Spent With Patient Time: Total time managing care of this patient today ____ minutes.
--- NOTE | 2023-09-15 14:08 | MHC.CM.PN ---
PT LIVES WITH HER SON AND HER NIECE IS HER OPEN DIE INSPECTOR DAILY SHE ALSO ATTENDS HD - IN [place] PCP: CASEY GUTHRIE OBS DELIVERED DCP: HOME RESUME OPEN DIE INSPECTOR AND NEW [facility]NA FOR HOME PT REFERRAL PLACED TO COMFORT PLUS AWAITING RESPONSE FAMILY TO TRANSPORT
== END 2023-09-15 13:59 | disposition home health service (06) ==
LOC: HO.ED 11:25 → HO.EDOVER 15:30 → HO.IMC 16:17
PROVIDERS: Admitting Provider Physician Assistant Medical; Emergency Provider Emergency Medicine; Visit Provider Physician Assistant Medical
DX: K81.1 Chronic cholecystitis (principal); R94.31 Abnormal electrocardiogram [ECG] [EKG]; I25.10 Atherosclerotic heart disease of native coronary artery without angina pectoris; I25.5 Ischemic cardiomyopathy; Z95.810 Presence of automatic (implantable) cardiac defibrillator; I48.0 Paroxysmal atrial fibrillation; R79.89 Other specified abnormal findings of blood chemistry; R11.2 Nausea with vomiting, unspecified; R10.9 Unspecified abdominal pain; I12.0 Hypertensive chronic kidney disease with stage 5 chronic kidney disease or end stage renal disease; N18.6 End stage renal disease; Z99.2 Dependence on renal dialysis; R68.83 Chills (without fever); R53.1 Weakness; Z03.818 Encounter for observation for suspected exposure to other biological agents ruled out
CPT/HCPCS: 0241U; 36415; 71045; 76705; 80048; 80053; 83605; 83690; 84484; 85025; 87040; 90999; 93005; 96365; 96375; 97161; 99222; 99285; J0696; J2405

== ENCOUNTER → 2023-09-14 15:06 | Outpatient (BNV) | payer OTHER, SELFPAY | PROVIDERS: Admitting Provider Physician Assistant Medical; Emergency Provider Emergency Medicine; Visit Provider Internal Medicine | DX: I49.9 Cardiac arrhythmia, unspecified (principal); I45.81 Long QT syndrome | CPT/HCPCS: 93010; 99223 ==

== ENCOUNTER → 2023-09-14 15:06 | Outpatient (BNV) | payer OTHER, SELFPAY | PROVIDERS: Admitting Provider Physician Assistant Medical; Emergency Provider Emergency Medicine; Visit Provider Surgery | DX: K81.1 Chronic cholecystitis (principal) | CPT/HCPCS: 99222; 99232 ==

== ENCOUNTER → 2023-09-14 15:06 | Outpatient (BNV) | payer OTHER, SELFPAY | PROVIDERS: Admitting Provider Physician Assistant Medical; Emergency Provider Emergency Medicine; Visit Provider Physician Assistant Medical | DX: I25.5 Ischemic cardiomyopathy (principal); Z95.810 Presence of automatic (implantable) cardiac defibrillator; I48.0 Paroxysmal atrial fibrillation | CPT/HCPCS: 99223; 99239; G0180 ==

== ENCOUNTER → 2023-10-26 23:59 | Outpatient (BNV) | payer OTHER, SELFPAY ==
--- NOTE | 2023-10-30 11:12 | MHC.OFFVIS ---
Intake Visit Reasons: Remote HF monitoring- Biotronik Allergies NSAIDS (Non-Steroidal Anti-Inflamma Allergy (Unknown, Verified 09/14/23 01:36) Unknown [facility] Medical History (Updated 10/30/23 @ 11:13 by Orion Adams MD) ICD (implantable cardioverter-defibrillator) in place CAD (coronary artery disease) Ischemic cardiomyopathy Gallstones Elevated bilirubin ESRD (end stage renal disease) on dialysis ESRD (end stage renal disease) Hyperlipidemia HTN (hypertension) Ventricular tachycardia Paroxysmal atrial fibrillation Surgical History History of pubovaginal sling Hx of knee surgery Family History Father No problems noted. Mother No problems noted. 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 Heart failure parameters are stable [id number] Cardiac Device Interrogation, cardio physiologic monitor Procedure code (CPT) selection complete Assessment & Plan Assessment & Plan (1) ICD (implantable cardioverter-defibrillator) in place: Comment: Biotronik single-chamber ICD placed at [facility] for sustained VT and LVEF of 30-35%. Code(s): Z95.810 - Presence of automatic (implantable) cardiac defibrillator Category: Medical Plan: See above Coding Level of Care Code Procedure Only Diagnoses ICD (implantable cardioverter-defibrillator) in place Z95.810 CPT Codes Cardiac Device Check - Cardiac Device 15: [id number] Cardiac Device Interrogation, cardio physiologic monitor ([id number])
== END ==
PROVIDERS: Visit Provider Internal Medicine Cardiovascular Disease
DX: Z45.02 Encounter for adjustment and management of automatic implantable cardiac defibrillator (principal)
CPT/HCPCS: 93297

== ENCOUNTER 2023-11-06 12:06 | Outpatient (REF) | payer OTHER, SELFPAY ==
--- NOTE | ~2023-11-06 | XR_ITS ---
EXAMINATION: XR TIBIA AND FIBULA, RIGHT CLINICAL INFORMATION: Mid lower leg pain, injury one week ago COMPARISON: None available. TECHNIQUE: AP and lateral views of the right tibia and fibula were obtained. FINDINGS: No acute fracture or malalignment. Focal anterior soft tissue swelling which may represent a subcutaneous hematoma. No radiopaque foreign body. Incidental severe medial compartment osteoarthritis of the right knee. XR/XR tibia fibula RT 2V IMPRESSION: 1. No acute fracture or malalignment. 2. Focal anterior soft tissue swelling which may represent a subcutaneous hematoma.
== END 2023-11-06 12:07 | disposition home or self-care (01) ==
LOC: HO.HHCX 12:06
PROVIDERS: Visit Provider Emergency Medicine
DX: S80.11XA Contusion of right lower leg, initial encounter (principal); L03.115 Cellulitis of right lower limb; I48.91 Unspecified atrial fibrillation; Z79.01 Long term (current) use of anticoagulants; W19.XXXA Unspecified fall, initial encounter; Y93.9 Activity, unspecified; Y92.9 Unspecified place or not applicable; Y99.9 Unspecified external cause status
CPT/HCPCS: 73590; 99212

== ENCOUNTER 2023-11-06 13:40 | Outpatient (AMB) | payer OTHER, SELFPAY ==
--- NOTE | 2023-11-06 13:56 | MHC.OFFVIS ---
Intake Visit Reasons: blood clot in leg on blood thinners Intake Note: bump leg last Sunday and sincel has a blood cot, redness, swelling, painful, lump has gone down since, denies discharge, nausea, vomit, diarrhea, constipation, was Rx antbx by PCP - just picked them up has yet to start them Physically Impaired Teacher Required: Yes Physically Impaired Teacher Language: Staple Cutter Services: Physically Impaired Teacher Present Physically Impaired Teacher Name: Jacki DASH Information Interpreted: non-clinical & clinical Accompanied by: Self / Same As Patient Allergies NSAIDS (Non-Steroidal Anti-Inflamma Allergy (Unknown, Verified 11/06/23 13:58) Unknown Medication List - Last Reconciled 11/06/23 by Thomas Ricci MD acetaminophen 650 mg PO Q4H PRN amiodarone 100 mg (1/2 x 200 mg) PO DAILY 90 days apixaban (Eliquis) 2.5 mg PO BID atorvastatin 80 mg PO BEDTIME carvedilol 3.125 mg PO BID cholecalciferol (vitamin D3) 25 mcg PO DAILY loratadine 10 mg PO Q2D magnesium oxide 400 mg PO DAILY polymyxin B sulf-trimethoprim 10,000 unit- 1 mg/mL 1 drp ophthalmic-Right QID sevelamer carbonate 1 tab PO BID HPI Comments Details: 73-year-old female patient seen today as an emergency patient for evaluation of a right aburto hematoma. She was visiting her daughter in [place] and her large dog bumped her causing her to fall. She apparently struck her right aburto and developed an area of swelling. Over the next 3 days it became red over the area of swelling. She denies fever or chills. She was seen by Dr. Freedman today and started on doxycycline. An x-ray reveals area of soft tissue swelling but no fracture was identified. She has a past history of chronic heart failure, end-stage renal disease on hemodialysis, atrial fibrillation on Eliquis. Her ejection fraction is 30%. She underwent AICD placement. She is followed by Dr. Adams for her heart. [facility] Medical History ICD (implantable cardioverter-defibrillator) in place CAD (coronary artery disease) Ischemic cardiomyopathy Gallstones Elevated bilirubin ESRD (end stage renal disease) on dialysis ESRD (end stage renal disease) Hyperlipidemia HTN (hypertension) Ventricular tachycardia Paroxysmal atrial fibrillation Surgical History History of pubovaginal sling Hx of knee surgery Family History Father No problems noted. Mother No problems noted. 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) Unable to assess alcohol history related to: Unknown Alcohol intake: never Patient Tobacco Use Status: Never used Tobacco service: No Current occupational status: unemployed and disabled Review of Systems Const All systems reviewed & are unremarkable except as noted in HPI and below Physical Exam Const General: comfortable Nutritional Appearance: well nourished Orientation/consciousness: patient oriented x3 Resp Effort & Inspection: normal respiratory effort, no audible wheezes, no cough and no respiratory distress GI Inspection: Yes normal to inspection Skin Other: Warm, dry, no rash Neuro General: patient oriented x3 Extrem Other: AV fistula right upper arm. Right aburto with an area of redness and fluctuance, 2 cm diameter. No warmth in the skin. Site is nontender to palpation. Upper/lower leg/hip images: 1. Site of hematoma Assessment & Plan Assessment & Plan (1) Hematoma: Code(s): T14.8XXA - Other injury of unspecified body region, initial encounter Category: Medical (2) Cellulitis: Code(s): L03.90 - Cellulitis, unspecified Category: Medical Qualifiers: Site of cellulitis: extremity Site of cellulitis of extremity: lower extremity Laterality: right Qualified Code(s): L03.115 - Cellulitis of right lower limb Plan 73-year-old female patient with history of AFib on Eliquis, presenting after a fall 1 week ago resulting in a hematoma of the right aburto. She now has an area of cellulitis overlying the hematoma. Clinically there does not appear to be an abscess rather overlying cellulitis. I am concerned that incision and drainage may result in persistent bleeding. She should continue the oral antibiotics as prescribed and return in 1 week for wound examination. She should certainly call sooner should her symptoms worsen. She expressed understanding and agrees with the plan. Coding Level of Care Code New Pt Level 4 (60883) Diagnoses Hematoma T14.8XXA Cellulitis of right lower extremity L03.115 Site of cellulitis: extremity Site of cellulitis of extremity: lower extremity Laterality: right
== END 2023-11-06 14:09 | disposition home or self-care (01) ==
PROVIDERS: PCP Family Medicine; Visit Provider Surgery
DX: T14.8XXA Other injury of unspecified body region, initial encounter (principal); L03.115 Cellulitis of right lower limb
CPT/HCPCS: 99213

== ENCOUNTER 2023-11-13 10:51 | Outpatient (AMB) | payer OTHER, SELFPAY ==
--- NOTE | 2023-11-13 10:58 | MHC.OFFVIS ---
Vital Signs 11/13/23 11:03 Weight 119 lb BP 144/69 H Blood Pressure Location Lt brachial Position Sitting Pulse 78 Pulse Oximetry (%) 98 Oxygen Delivery Method Room Air Intake Visit Reasons: blood clot in leg on blood thinners Intake Note: Patient is seen in office for one week follow up, wound check, following right leg blood clot. Pt c/o: redness, reports swelling has decreased, reports no shortness of breath, reports no chest pain. observation Rubber Tile Floor Layer Required: Yes Rubber Tile Floor Layer Language: Personal Injury Litigation Paralegal Services: Rubber Tile Floor Layer Present Rubber Tile Floor Layer Name: Jennifer Information Interpreted: non-clinical & clinical Accompanied by: Self / Same As Patient Allergies NSAIDS (Non-Steroidal Anti-Inflamma Allergy (Unknown, Verified 11/13/23 11:05) Unknown Medication List - Last Reconciled 11/13/23 by Thomas Ricci MD acetaminophen 650 mg PO Q4H PRN amiodarone 100 mg (1/2 x 200 mg) PO DAILY 90 days apixaban (Eliquis) 2.5 mg PO BID atorvastatin 80 mg PO BEDTIME carvedilol 3.125 mg PO BID cholecalciferol (vitamin D3) 25 mcg PO DAILY loratadine 10 mg PO Q2D magnesium oxide 400 mg PO DAILY polymyxin B sulf-trimethoprim 10,000 unit- 1 mg/mL 1 drp ophthalmic-Right QID sevelamer carbonate 1 tab PO BID HPI Comments Details: 73-year-old female patient returning for follow-up examination of a right aburto hematoma/cellulitis. She completed the oral antibiotics and feels much improved. She denies any pain in the leg and is able to ambulate much easier. There has been no bleeding or discharge from the wound. She denies fever or chills. She has a past history of chronic heart failure, end-stage renal disease on hemodialysis, atrial fibrillation on Eliquis. Her ejection fraction is 30%. She underwent AICD placement. She is followed by Dr. Adams for her heart. [facility] Medical History ICD (implantable cardioverter-defibrillator) in place CAD (coronary artery disease) Ischemic cardiomyopathy Gallstones Elevated bilirubin ESRD (end stage renal disease) on dialysis ESRD (end stage renal disease) Hyperlipidemia HTN (hypertension) Ventricular tachycardia Paroxysmal atrial fibrillation Surgical History History of pubovaginal sling Hx of knee surgery Family History Father No problems noted. Mother No problems noted. 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) Unable to assess alcohol history related to: Unknown Alcohol intake: never Patient Tobacco Use Status: Never used Tobacco service: No Current occupational status: unemployed and disabled Review of Systems Const All systems reviewed & are unremarkable except as noted in HPI and below Physical Exam Vital Signs: Last Vital Signs Pulse 78 11/13/23 11:03 BP 144/69 H 11/13/23 11:03 Pulse Ox 98 11/13/23 11:03 Oxygen Delivery Method Room Air 11/13/23 11:03 Const General: comfortable Nutritional Appearance: well nourished Orientation/consciousness: patient oriented x3 Resp Effort & Inspection: normal respiratory effort, no audible wheezes, no cough and no respiratory distress GI Inspection: Yes normal to inspection Skin Other: Warm, dry, no rash Neuro General: patient oriented x3 Extrem Other: AV fistula right upper arm. Right aburto with continued palpable hematoma within the subcutaneous tissue. The overlying cellulitis is much improved. There is no tenderness to palpation. Overlying skin is healthy without evidence of necrosis. Assessment & Plan Assessment & Plan (1) Hematoma: Code(s): T14.8XXA - Other injury of unspecified body region, initial encounter Category: Medical (2) Cellulitis: Code(s): L03.90 - Cellulitis, unspecified Category: Medical Qualifiers: Site of cellulitis: extremity Site of cellulitis of extremity: lower extremity Laterality: right Qualified Code(s): L03.115 - Cellulitis of right lower limb Plan 73-year-old female patient returning for a wound examination after developing a hematoma in cellulitis of the right aburto. She completed her oral antibiotics and her wounds are now much improved. She denies any pain in his ambulating much better. On examination the cellulitis has improved but the hematoma remains. This should continue to decrease in size over time as long as she avoids any further trauma. She should follow up as needed for increased pain, redness or other concerns. She expressed understanding and agrees with the plan. Coding Level of Care Code Est Pt Level 3 (46900) Diagnoses Hematoma T14.8XXA Cellulitis of right lower extremity L03.115 Site of cellulitis: extremity Site of cellulitis of extremity: lower extremity Laterality: right
[2023-11-13 11:03] VITALS: BP 144/69; PULSE 78; O2SAT 98
== END 2023-11-13 11:09 | disposition home or self-care (01) ==
PROVIDERS: PCP Family Medicine; Visit Provider Surgery
DX: T14.8XXA Other injury of unspecified body region, initial encounter (principal); L03.115 Cellulitis of right lower limb
CPT/HCPCS: 99213

== ENCOUNTER → 2023-11-13 10:51 | Outpatient (BNVA) | payer OTHER, SELFPAY | PROVIDERS: PCP Family Medicine; Visit Provider Surgery | DX: S89.81XD Other specified injuries of right lower leg, subsequent encounter (principal); I48.91 Unspecified atrial fibrillation; L03.115 Cellulitis of right lower limb; X58.XXXD Exposure to other specified factors, subsequent encounter; Z79.01 Long term (current) use of anticoagulants | CPT/HCPCS: 99212 ==

== ENCOUNTER → 2023-11-21 08:11 | Outpatient (REF) | payer OTHER, SELFPAY ==
--- NOTE | ~2023-11-21 | NM_ITS ---
Lexiscan Myocardial perfusion study Indication: Coronary artery disease, ischemic cardiomyopathy Technique: The patient was brought in for a Lexiscan perfusion study on 11/21/2023 and was injected 0.4 mg of Lexiscan intravenously. Within a minute of this injection 25 mCi of sestamibi was given intravenously. Images were obtained using the SPECT gamma camera interlaced with the gating device. Images were obtained in supine position. Resting perfusion study was performed on 11/29/2023. Patient was administered 25 mCi of sestamibi intravenously at rest. Images were then obtained in supine position. Images were processed with the software and compared side to side in short axis, horizontal long axis and vertical long axis views. Total DLP 35 mGy-cm. Findings: Raw acquisition reviewed. The stress perfusion study showed diminished tracer uptake along the basal part of inferior/inferolateral wall. Some improvement with CT attenuation correction and hence could've components of diaphragmatic attenuation artifact. The gated study shows diminished LV systolic function with calculated LVEF of 44%. LV cavity is dilated in size. The gated study shows globally reduced wall thickening and contraction of segments, but much more prominent in the inferior/inferolateral wall. Resting study shows diminished tracer uptake along the inferior/inferolateral wall. Towards the basal part. No major change with CT attenuation correction. Gating at rest reveals globally reduced contractility but more prominent in the basal inferior/inferolateral wall and LVEF 44%. The findings are consistent with fixed perfusion defect in the basal part of inferior/inferolateral wall. NM/NM cardiolite stress test Impression: 1. Myocardial perfusion imaging study shows prior infarct in the basal part of inferior/inferolateral wall. 2. Gated LVEF is 44% during stress and rest. 3. Transient ischemic dilatation not present. EKG component of the test reported separately.
--- NOTE | 2023-11-21 08:18 | CA_ITS ---
Acquisition Time: 2023-11-21 08:19:26 Total Exercise Time: 00:02:00 Test Indications: Abnormal ECG ELEVATED TROPONIN Medications: SEE DISCHARGE SUMMARY Protocol: LEXISCAN Max HR: 069 BPM 47% of Pred: 145 BPM Max BP: 112/062 mmHG Max Work Load: 1.0 METS Pharmacological stress test with Lexiscan injection while sitting and kicking her legs, without anginal symnptoms, with isolated PVCs, with normotensive response to injection, with nondiagnoisitic EKGs. Aminophylline 75mg IVP given to reverse Lexiscan. Nuclear images pending. Test reviewed with Dr. Eastman. Referred By: Antonieta Barrios Overread By: Lori Alves
== END ==
LOC: HO.CARD 08:11
PROVIDERS: PCP Family Medicine; Visit Provider Nurse Practitioner Family
DX: I25.5 Ischemic cardiomyopathy (principal); I47.20 Ventricular tachycardia, unspecified; Z95.810 Presence of automatic (implantable) cardiac defibrillator
CPT/HCPCS: 78452; 93017; A9500; J0280; J2785

== ENCOUNTER → 2023-11-21 08:18 | Outpatient (BNV) | payer OTHER, SELFPAY | PROVIDERS: PCP Family Medicine; Visit Provider Nurse Practitioner | DX: I25.10 Atherosclerotic heart disease of native coronary artery without angina pectoris (principal) | CPT/HCPCS: 78452; 93016; 93018 ==

== ENCOUNTER → 2023-12-13 23:59 | Outpatient (BNV) | payer OTHER, SELFPAY ==
--- NOTE | 2023-12-17 17:01 | MHC.OFFVIS ---
Intake Visit Reasons: Remote HF monitoring- Biotronik Allergies NSAIDS (Non-Steroidal Anti-Inflamma Allergy (Unknown, Verified 11/13/23 11:05) Unknown [facility] Medical History ICD (implantable cardioverter-defibrillator) in place CAD (coronary artery disease) Ischemic cardiomyopathy Gallstones Elevated bilirubin ESRD (end stage renal disease) on dialysis ESRD (end stage renal disease) Hyperlipidemia HTN (hypertension) Ventricular tachycardia Paroxysmal atrial fibrillation Surgical History History of pubovaginal sling Hx of knee surgery Family History Father No problems noted. Mother No problems noted. 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 Heart failure parameters are stable [id number] Cardiac Device Interrogation, cardio physiologic monitor Procedure code (CPT) selection complete Assessment & Plan Assessment & Plan (1) ICD (implantable cardioverter-defibrillator) in place: Comment: Biotronik single-chamber ICD placed at [facility] for sustained VT and LVEF of 30-35%. Code(s): Z95.810 - Presence of automatic (implantable) cardiac defibrillator Category: Medical Plan: See above Coding Level of Care Code Procedure Only Diagnoses ICD (implantable cardioverter-defibrillator) in place Z95.810 CPT Codes Cardiac Device Check - Cardiac Device 15: [id number] Cardiac Device Interrogation, cardio physiologic monitor ([id number])
== END ==
PROVIDERS: PCP Family Medicine; Visit Provider Internal Medicine Cardiovascular Disease
DX: I47.20 Ventricular tachycardia, unspecified (principal); Z95.810 Presence of automatic (implantable) cardiac defibrillator
CPT/HCPCS: 93297

== ENCOUNTER → 2023-12-13 23:59 | Outpatient (BNV) | payer OTHER, SELFPAY ==
--- NOTE | 2023-12-17 17:00 | A.OFFVIS_ITS ---
Intake Visit Reasons: Remote ICD check- Biotronik Allergies NSAIDS (Non-Steroidal Anti-Inflamma Allergy (Unknown, Verified 11/13/23 11:05) Unknown [facility] Medical History ICD (implantable cardioverter-defibrillator) in place CAD (coronary artery disease) Ischemic cardiomyopathy Gallstones Elevated bilirubin ESRD (end stage renal disease) on dialysis ESRD (end stage renal disease) Hyperlipidemia HTN (hypertension) Ventricular tachycardia Paroxysmal atrial fibrillation Surgical History History of pubovaginal sling Hx of knee surgery Family History Father No problems noted. Mother No problems noted. 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 ICD function is adequate [id number] Cardiac Interrogation, implant defibrillator w/interim Procedure code (CPT) selection complete Assessment & Plan Assessment & Plan (1) ICD (implantable cardioverter-defibrillator) in place: Comment: Biotronik single-chamber ICD placed at [facility] for sustained VT and LVEF of 30-35%. Code(s): Z95.810 - Presence of automatic (implantable) cardiac defibrillator Category: Medical Plan: See above Coding Level of Care Code Procedure Only Diagnoses ICD (implantable cardioverter-defibrillator) in place Z95.810 CPT Codes Cardiac Device Check - Cardiac Device 13: [id number] Cardiac Interrogation, implant defibrillator w/interim ([id number])
== END ==
PROVIDERS: PCP Family Medicine; Visit Provider Internal Medicine Cardiovascular Disease
DX: I47.20 Ventricular tachycardia, unspecified (principal); Z95.810 Presence of automatic (implantable) cardiac defibrillator
CPT/HCPCS: 93295

== ENCOUNTER → 2024-01-21 23:59 | Outpatient (BNV) | payer OTHER, SELFPAY ==
--- NOTE | 2024-01-23 15:38 | A.OFFVIS_ITS ---
Intake Visit Reasons: Remote HF monitoring- Biotronik Allergies NSAIDS (Non-Steroidal Anti-Inflamma Allergy (Unknown, Verified 11/13/23 11:05) Unknown [facility] Medical History ICD (implantable cardioverter-defibrillator) in place CAD (coronary artery disease) Ischemic cardiomyopathy Gallstones Elevated bilirubin ESRD (end stage renal disease) on dialysis ESRD (end stage renal disease) Hyperlipidemia HTN (hypertension) Ventricular tachycardia Paroxysmal atrial fibrillation Surgical History History of pubovaginal sling Hx of knee surgery Family History Father No problems noted. Mother No problems noted. 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 Heart failure parameters are stable [id number] Cardiac Device Interrogation, cardio physiologic monitor Procedure code (CPT) selection complete Assessment & Plan Assessment & Plan (1) ICD (implantable cardioverter-defibrillator) in place: Comment: Biotronik single-chamber ICD placed at [facility] for sustained VT and LVEF of 30-35%. Code(s): Z95.810 - Presence of automatic (implantable) cardiac defibrillator Category: Medical Plan: See above Coding Level of Care Code Procedure Only Diagnoses ICD (implantable cardioverter-defibrillator) in place Z95.810 CPT Codes Cardiac Device Check - Cardiac Device 15: [id number] Cardiac Device Interrogation, cardio physiologic monitor ([id number])
== END ==
PROVIDERS: PCP Family Medicine; Visit Provider Internal Medicine Cardiovascular Disease
DX: I50.9 Heart failure, unspecified (principal); Z95.810 Presence of automatic (implantable) cardiac defibrillator
CPT/HCPCS: 93297

== ENCOUNTER 2024-02-04 12:03 | Outpatient (AMB) | payer OTHER, SELFPAY ==
--- NOTE | 2024-02-04 12:56 | A.OFFVIS_ITS ---
Vital Signs 02/04/24 12:57 Height 5 ft Weight 124 lb BMI 24.2 BP 140/82 H Blood Pressure Location Lt brachial Position Sitting Pulse 57 Intake Visit Reasons: 6 mth f/up echo Intake Note: 6 month follow-up with ekg after echo and pacemaker check feeling good Mobile Sales Consultant Required: Yes Mobile Sales Consultant Services: Mobile Sales Consultant Present Mobile Sales Consultant Name: Mayank lopez Allergies NSAIDS (Non-Steroidal Anti-Inflamma Allergy (Unknown, Verified 11/13/23 11:05) Unknown Medication List - Last Reconciled 02/04/24 by Orion Adams MD acetaminophen 650 mg PO Q4H PRN amiodarone 100 mg (1/2 x 200 mg) PO DAILY 90 days apixaban (Eliquis) 2.5 mg PO BID 90 days atorvastatin 80 mg PO BEDTIME carvedilol 3.125 mg PO BID cholecalciferol (vitamin D3) 25 mcg PO DAILY loratadine 10 mg PO Q2D magnesium oxide 400 mg PO DAILY polymyxin B sulf-trimethoprim 10,000 unit- 1 mg/mL 1 drp ophthalmic-Right QID sevelamer carbonate 1 tab PO BID HPI Comments Details: Gabriel comes for follow-up. She has been doing well from cardiac perspective. History was obtained with help of image archivist. She gets dialysis on Sunday, Sunday and Sunday. She did not get a dialysis session today due to conflict. She denies any worsening heart failure symptoms. No lightheadedness, syncope. No prolonged palpitation, irregular heartbeat, ICD discharge. No orthopnea, PND, leg edema. Walks with help of a walker. Denies any chest pain. [facility] Medical History Paroxysmal atrial fibrillation Acute on chronic HFrEF (heart failure with reduced ejection fraction) ICD (implantable cardioverter-defibrillator) in place CAD (coronary artery disease) Ischemic cardiomyopathy Gallstones Elevated bilirubin ESRD (end stage renal disease) on dialysis ESRD (end stage renal disease) Hyperlipidemia HTN (hypertension) Ventricular tachycardia Surgical History History of pubovaginal sling Hx of knee surgery Family History Father No problems noted. Mother No problems noted. 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) Unable to assess alcohol history related to: Unknown Alcohol intake: never Patient Tobacco Use Status: Never used Tobacco service: No Current occupational status: unemployed and disabled Review of Systems Const Denies chills, Denies fatigue, Denies fever(s), Denies frequent falls, Denies weakness, Denies weight gain and Denies weight loss ENT Denies dizziness Card Denies chest pain, Denies leg edema, Denies lightheadedness, Denies palpitations, Denies dyspnea, Denies dyspnea on exertion, Denies orthopnea and Denies other (loss of consciousness) Resp Denies cough, Denies dyspnea and Denies dyspnea on exertion GI Denies hematochezia and Denies change in stool character Musc Denies abnormal gait, Denies muscle weakness, Denies numbness, Denies radiating pain into limb and Denies tingling Neuro Denies abnormal gait, Denies dizziness, Denies frequent falls, Denies numbness, Denies tingling and Denies weakness Endo Denies fatigue and Denies palpitations Physical Exam Vital Signs: Last Vital Signs Pulse 57 02/04/24 12:57 BP 140/82 H 02/04/24 12:57 BMI result Body Mass Index 24.2 Const General: cooperative, comfortable and no acute distress Nutritional Appearance: thin and other (Frail elderly woman) Orientation/consciousness: patient oriented x3 Limitations: ambulation with walker Neck Neck: Yes normal visual inspection Resp Effort & Inspection: normal respiratory effort Auscultation: clear to auscultation bilaterally, no crackles, no rales, no rhonchi and no wheezes Cardio Jugular venous distension: no JVD Rate: regular rate Rhythm: regular rhythm Heart sounds: S1 normal heart sound present, S2 normal heart sound present, Murmur heart sound present (systolic murmur noted) and no rubs Neuro General: patient oriented x3 Extrem General: Yes normal to inspection Psych Appearance: grossly normal Mental Status: mental status grossly normal Speech and movement: Normal speech and movement present Office Procedures Cardiac Device Check Cardiac Device Check Details: Single-chamber Biotronik ICD in place. Programmed in VVI at 40 beats per minute. One episode of nonsustained VT noted. No episodes paroxysmal atrial fibrillation noted. Ventricular pacing thresholds adequate. Pacing and shock lead impedance is stable. Battery life is adequate [id number] Cardiac Device Check, single lead implantable defibrillator Procedure code (CPT) selection complete EKG Details: EKG shows sinus bradycardia with left axis deviation with poor R-wave progression suggestive of possibly lead placement with inferior Q-waves [id number], Complete Assessment & Plan Assessment & Plan (1) Heart failure with reduced ejection fraction: Code(s): I50.20 - Unspecified systolic (congestive) heart failure Category: Medical Plan: Heart failure with reduced ejection fraction, clinically euvolemic and well compensated after dialysis session. Currently on carvedilol therapy. Not on diuretic therapy due to dialysis. Will add hydralazine 10 mg b.i.d. for afterload reduction. Follow-up echocardiogram near future. Signs and symptoms of heart failure were discussed. Avoidance of missing dialysis sessions and we will try to coordinate our schedules for device check as well as dialysis. (2) Paroxysmal atrial fibrillation: Code(s): I48.0 - Paroxysmal atrial fibrillation Category: Medical Plan: Paroxysmal atrial fibrillation, currently suppressed on amiodarone therapy. Has done well with rhythm control approach. Continue amiodarone therapy. She is on low-dose amiodarone therapy and risk of toxicity is low although will check annually for the same. Continue full oral anticoagulation, currently on apixaban 2.5 mg b.i.d.. Renal function being followed by Nephrology team. (3) ICD (implantable cardioverter-defibrillator) in place: Comment: Biotronik single-chamber ICD placed at [facility] for sustained VT and LVEF of 30-35%. Code(s): Z95.810 - Presence of automatic (implantable) cardiac defibrillator Category: Medical Plan: ICD in place, working well. Reprogrammed for adequate function. Will follow remotely for heart failure as well as device check. Follow up in the clinic in 6 months time, sooner p.r.n.. Thank you for allowing me to partake in his care Orders: Orders CA echo transthoracic complete 1 Month I50.20 - Unspecified systolic (congestive) heart failure Medications: New hydralazine 10 mg PO BID 60 tabs 5RF I50.20 - Unspecified systolic (congestive) heart failure Coding Level of Care Code Est Pt Level 4 (12039) Diagnoses Heart failure with reduced ejection fraction I50.20 Paroxysmal atrial fibrillation I48.0 ICD (implantable cardioverter-defibrillator) in place Z95.810 CPT Codes Cardiac Device Check - Cardiac Device 4: [id number] Cardiac Device Check, single lead implantable defibrillator ([id number]) EKG - CPT: 05670-Hmteqztyubedwmzfb, Complete ([id number])
[2024-02-04 12:57] VITALS: BP 140/82; PULSE 57; BMI 24.2
== END 2024-02-04 13:23 | disposition home or self-care (01) ==
PROVIDERS: PCP Family Medicine; Visit Provider Internal Medicine Cardiovascular Disease
DX: I50.20 Unspecified systolic (congestive) heart failure (principal); I48.0 Paroxysmal atrial fibrillation; Z95.810 Presence of automatic (implantable) cardiac defibrillator
CPT/HCPCS: 93010; 93282; 99214

== ENCOUNTER → 2024-02-04 12:03 | Outpatient (BNVA) | payer OTHER, SELFPAY | PROVIDERS: PCP Family Medicine; Visit Provider Internal Medicine Cardiovascular Disease | DX: I48.0 Paroxysmal atrial fibrillation (principal); I13.2 Hypertensive heart and chronic kidney disease with heart failure and with stage 5 chronic kidney disease, or end stage renal disease; I50.23 Acute on chronic systolic (congestive) heart failure; N18.6 End stage renal disease; Z99.2 Dependence on renal dialysis; Z45.010 Encounter for checking and testing of cardiac pacemaker pulse generator [battery] | CPT/HCPCS: 93005; 99212 ==

== ENCOUNTER 2024-03-04 10:04 | Outpatient (REF) | payer OTHER, SELFPAY ==
[2024-03-04 12:41] LABS: Alanine Aminotransferase < 6 U/L (0-31); Albumin Level 3.1 g/dL (3.5-5.0); Alkaline Phosphatase 232 U/L (39-117); Anion Gap 12 (12-20); Aspartate Amino Transferase 31 U/L (5-31); Bilirubin Total 0.9 mg/dL (0.0-1.0); Blood Urea Nitrogen 22 mg/dL (9-16); Carbon Dioxide 29 mmol/L (22-29); Chloride 103 mmol/L (96-108); Cholesterol 58 mg/dL (<200); Estimated Glomerular Filt Rate 11; Glucose Random 72 mg/dL (60-115); HDL Cholesterol 29 mg/dL (>40); LDL Cholesterol Calculated 21 mg/dL (<100); Magnesium 1.9 mg/dL (1.6-2.6); Potassium 3.4 mmol/L (3.3-5.1); Sodium 141 mmol/L (135-145); Triglycerides 43 mg/dL (<150)
[2024-03-04 12:42] LABS: TSH reflex Free T4 2.07 uIU/mL (0.32-4.0)
== END 2024-03-04 10:05 | disposition home or self-care (01) ==
LOC: HO.LAB 10:04
PROVIDERS: PCP Family Medicine; Visit Provider Nurse Practitioner Family
DX: I25.10 Atherosclerotic heart disease of native coronary artery without angina pectoris (principal); I50.20 Unspecified systolic (congestive) heart failure; I48.0 Paroxysmal atrial fibrillation
CPT/HCPCS: 36415; 80053; 80061; 83735; 84443

== ENCOUNTER → 2024-03-12 23:59 | Outpatient (BNV) | payer OTHER, SELFPAY ==
--- NOTE | 2024-03-17 17:05 | MHC.OFFVIS ---
Intake Visit Reasons: Remote HF monitoring- Biotronik Allergies NSAIDS (Non-Steroidal Anti-Inflamma Allergy (Unknown, Verified 11/13/23 11:05) Unknown [facility] Medical History Paroxysmal atrial fibrillation Acute on chronic HFrEF (heart failure with reduced ejection fraction) ICD (implantable cardioverter-defibrillator) in place CAD (coronary artery disease) Ischemic cardiomyopathy Gallstones Elevated bilirubin ESRD (end stage renal disease) on dialysis ESRD (end stage renal disease) Hyperlipidemia HTN (hypertension) Ventricular tachycardia Surgical History History of pubovaginal sling Hx of knee surgery Family History Father No problems noted. Mother No problems noted. 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 ICD function is adequate [id number] Cardiac Interrogation, implant defibrillator w/interim Procedure code (CPT) selection complete Assessment & Plan Assessment & Plan (1) ICD (implantable cardioverter-defibrillator) in place: Comment: Biotronik single-chamber ICD placed at [facility] for sustained VT and LVEF of 30-35%. Code(s): Z95.810 - Presence of automatic (implantable) cardiac defibrillator Category: Medical Plan: See above Coding Level of Care Code Procedure Only Diagnoses ICD (implantable cardioverter-defibrillator) in place Z95.810 CPT Codes Cardiac Device Check - Cardiac Device 13: [id number] Cardiac Interrogation, implant defibrillator w/interim ([id number])
== END ==
PROVIDERS: PCP Family Medicine; Visit Provider Internal Medicine Cardiovascular Disease
DX: Z45.02 Encounter for adjustment and management of automatic implantable cardiac defibrillator (principal)
CPT/HCPCS: 93295

== ENCOUNTER → 2024-03-20 12:42 | Outpatient (REF) | payer OTHER, SELFPAY ==
--- NOTE | 2024-03-20 12:46 | CA_ITS ---
Transthoracic Echocardiogram Patient (Last, First, Middle): Gabriel Beck, Gender: Female Date of : 1950 Age: 73 Procedure Date: 03/20/2024 Procedure Type: Transthoracic Echocardiogram Location: OP Height: 152.4 cm Weight: 56.25 kg BSA: 1.52 m2 Heart Rate: 70 bpm BP: 142 / 70 mmHg Operations Welder: SB Referring MD: Orion Adams MD Script Girl: Orion Adams MD Symptoms: I50.20 - Unspecified systolic (congestive) heart failure Study Quality: Adequate ECG Rhythm: Sinus Conclusions: - 1. Moderately dilated LV with moderate to severe LV systolic dysfunction with LVEF of 30-35% with at least grade 2 diastolic dysfunction 2. Severely dilated left atrium 3. Calcific mitral valve changes noted with at least moderate mitral regurgitation 4. Normal RV systolic pressure with mildly elevated right atrial pressures 5. Mildly dilated ascending aorta 6. Small pericardial effusion near LV Findings Left Ventricle Moderately increased left ventricular cavity size. There is normal left ventricular wall thickness. The left ventricular systolic function is severely decreased. The visually estimated ejection fraction is between 30 35%. Spectral Doppler is indicative of a pseudonormal filling pattern. E/E prime ratio is >15, consistent with elevated filling pressures. Evidence suggests grade II (moderate) diastolic dysfunction. Right Ventricle Mildly increased right ventricular cavity size. There is mildly decreased right ventricular systolic function. There is an ICD wire seen in the right ventricle. Atria The left atrium is severely dilated. There is no evidence of interatrial shunt. The right atrium is moderately dilated. Aortic Valve Normal aortic valve structure and function. There is mild calcification of the aortic valve. There is no aortic valve stenosis. There is no aortic valve regurgitation. Mitral Valve There is mild anterior and posterior mitral leaflet thickening. There is mild anterior and mild posterior mitral annular calcification. There is moderate mitral annular calcification. There is moderate mitral valve regurgitation. There is no mitral valve stenosis. Pulmonic Valve The pulmonic valve is likely normal. There is trace pulmonic valve regurgitation. Tricuspid Valve Normal tricuspid valve structure. There is mild tricuspid valve regurgitation. Mildly elevated right atrial pressure. There is no evidence of pulmonary hypertension. Great Vessels The pulmonary artery was not well visualized. There is mild dilatation of the ascending aorta measuring 3.70 cm. Moderate plaque is seen in the sino tubular ridge. Venous The inferior vena cava is mildly dilated and collapses less than 50% with inspiration. Pericardium/Pleural There is a small loculated pericardial effusion overlying the left ventricle. Prior Study Comparison No significant change compared to prior study dated: 03/13/2023. Measurements 2D Linear Measurements IVSd: 1.05 0.6-0.9/0.6-1.0 cm LVIDd: 6.57 3.9-5.3/4.2-5.9 cm LVIDd Index: 4.32 2.4-3.2/2.2-3.1 cm/m2 LVIDs: 5.95 2.0-3.6 cm LVPWd: 1.04 0.7-1.1 cm LA Diam: 4.80 2.7-3.8/3.0-4.0 cm LAIDs Index: 3.16 1.5-2.3 cm/m2 LV Mass: 380.50 67-162/88-224 g LV Mass Index: 250.33 43-95/49-115 g/m2 LVOT Diam: 1.80 3.0+(-)1.3 cm 2D Systolic Function EF 4C: 31.40 >55% EF 2C: 26.90 >55% EF BiP: 30.70 >55% Mitral Valve MV VTI: 0.52 MV Pk Ze: 1.97 MV Mn Ze: 1.09 MV Pk Grad: 16.00 MV Mn Grad: 6.00 MV Pk E: 1.73 MV PK A: 0.95 MV Decel Time: 214.00 E/A: 1.80 E'Lateral: 5.15 E'Medial: 4.33 E/E' Med: 40.00 E/E' Lat: 33.60 PHT: 63.00 MVA PHT: 3.49 MVA Continuity: 0.81 Decel [place]: 8.08 MR Vol - PW Dopp: 18.84 MR VTI: 1.57 MR ERO: 12.00 MR Alias Ze: 0.38 MR RAD: 0.50 Aortic Valve AoV Pk Ze: 1.67 AoV Mn Ze: 1.11 AoV VTI: 0.30 AoV Pk Grad: 11.00 Aov Mn Grad: 6.00 GAGE Cont.VTI: 1.41 LVOT LVOT Pk Ze: 0.95 LVOT Mn Ze: 0.63 LVOT VTI: 0.17 LVOT Pk Grad: 4.00 LVOT Mn Grad: 2.00 LVOT Diam: 1.80 LVOT Area: 2.54 Diastolic Function MV Pk E: 1.73 MV Pk A: 0.95 E/A: 1.80 E'Medial: 4.33 E/E' Med: 40.00 E' Laterial: 5.15 E/E' Lat: 33.60 Right Ventricle TAPSE (mm): 15.80 TVS' Ze: 8.31 Tricuspid Valve TR Pk Ze: 2.67 TR Pk Grad: 29.00 RA Press: 8.00 RVSP: 37.00 Great Vessels Aorta Sinus of Valsalva: 3.10 2.0-3.5 cm Ao Asc: 3.70 2.1-3.4 cm Pulmonary Veins Pulm Vein S/D 0.90 Pulmonary Valve PV Pk Ze: 1.00 Peak PV Grad: 4.00 OR Pk Ze: 2.73 Updated in Other Vendor System with Status of Final Orion Adams MD electronically signed on 03/21/2024 12:25:56 PM with status of Final
== END ==
LOC: HO.CARD 12:42
PROVIDERS: PCP Family Medicine; Visit Provider Internal Medicine Cardiovascular Disease
DX: I50.20 Unspecified systolic (congestive) heart failure (principal)
CPT/HCPCS: 93306

== ENCOUNTER → 2024-03-20 12:46 | Outpatient (BNV) | payer OTHER, SELFPAY | PROVIDERS: PCP Family Medicine; Visit Provider Internal Medicine Cardiovascular Disease | DX: I50.20 Unspecified systolic (congestive) heart failure (principal); I34.0 Nonrheumatic mitral (valve) insufficiency; I34.81 Nonrheumatic mitral (valve) annulus calcification; I36.1 Nonrheumatic tricuspid (valve) insufficiency | CPT/HCPCS: 93306 ==

== ENCOUNTER → 2024-06-13 23:59 | Outpatient (BNV) | payer OTHER, SELFPAY ==
--- NOTE | 2024-06-18 14:25 | A.OFFVIS_ITS ---
Intake Visit Reasons: Remote ICD check- Biotronik Allergies NSAIDS (Non-Steroidal Anti-Inflamma Allergy (Unknown, Verified 11/13/23 11:05) Unknown [facility] Medical History Paroxysmal atrial fibrillation Acute on chronic HFrEF (heart failure with reduced ejection fraction) ICD (implantable cardioverter-defibrillator) in place CAD (coronary artery disease) Ischemic cardiomyopathy Gallstones Elevated bilirubin ESRD (end stage renal disease) on dialysis ESRD (end stage renal disease) Hyperlipidemia HTN (hypertension) Ventricular tachycardia Surgical History History of pubovaginal sling Hx of knee surgery Family History Father No problems noted. Mother No problems noted. 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 ICD function is adequate [id number] Cardiac Interrogation, implant defibrillator w/interim Procedure code (CPT) selection complete Assessment & Plan Assessment & Plan (1) ICD (implantable cardioverter-defibrillator) in place: Comment: Biotronik single-chamber ICD placed at [facility] for sustained VT and LVEF of 30-35%. Code(s): Z95.810 - Presence of automatic (implantable) cardiac defibrillator Category: Medical Plan: See above Coding Level of Care Code Procedure Only Diagnoses ICD (implantable cardioverter-defibrillator) in place Z95.810 CPT Codes Cardiac Device Check - Cardiac Device 13: [id number] Cardiac Interrogation, implant defibrillator w/interim ([id number])
== END ==
PROVIDERS: PCP Family Medicine; Visit Provider Internal Medicine Cardiovascular Disease
DX: Z45.02 Encounter for adjustment and management of automatic implantable cardiac defibrillator (principal)
CPT/HCPCS: 93295

== ENCOUNTER → 2024-07-04 23:59 | Outpatient (BNV) | payer OTHER, SELFPAY ==
--- NOTE | 2024-07-07 15:34 | A.OFFVIS_ITS ---
Intake Visit Reasons: Remote HF monitoring- Biotronik Allergies NSAIDS (Non-Steroidal Anti-Inflamma Allergy (Unknown, Verified 11/13/23 11:05) Unknown [facility] Medical History Paroxysmal atrial fibrillation Acute on chronic HFrEF (heart failure with reduced ejection fraction) ICD (implantable cardioverter-defibrillator) in place CAD (coronary artery disease) Ischemic cardiomyopathy Gallstones Elevated bilirubin ESRD (end stage renal disease) on dialysis ESRD (end stage renal disease) Hyperlipidemia HTN (hypertension) Ventricular tachycardia Surgical History History of pubovaginal sling Hx of knee surgery Family History Father No problems noted. Mother No problems noted. 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 Heart failure parameters are stable [id number] Cardiac Device Interrogation, cardio physiologic monitor Procedure code (CPT) selection complete Assessment & Plan Assessment & Plan (1) ICD (implantable cardioverter-defibrillator) in place: Comment: Biotronik single-chamber ICD placed at [facility] for sustained VT and LVEF of 30-35%. Code(s): Z95.810 - Presence of automatic (implantable) cardiac defibrillator Category: Medical Plan: See above Coding Level of Care Code Procedure Only Diagnoses ICD (implantable cardioverter-defibrillator) in place Z95.810 CPT Codes Cardiac Device Check - Cardiac Device 15: [id number] Cardiac Device Interrogation, cardio physiologic monitor ([id number])
== END ==
PROVIDERS: PCP Family Medicine; Visit Provider Internal Medicine
DX: Z45.02 Encounter for adjustment and management of automatic implantable cardiac defibrillator (principal)
CPT/HCPCS: 93297

== ENCOUNTER → 2024-08-04 23:59 | Outpatient (BNV) | payer OTHER, SELFPAY ==
--- NOTE | 2024-08-05 12:34 | MHC.OFFVIS ---
Intake Visit Reasons: Remote HF monitoring- Biotronik Allergies NSAIDS (Non-Steroidal Anti-Inflamma Allergy (Unknown, Verified 11/13/23 11:05) Unknown [facility] Medical History Paroxysmal atrial fibrillation Acute on chronic HFrEF (heart failure with reduced ejection fraction) ICD (implantable cardioverter-defibrillator) in place CAD (coronary artery disease) Ischemic cardiomyopathy Gallstones Elevated bilirubin ESRD (end stage renal disease) on dialysis ESRD (end stage renal disease) Hyperlipidemia HTN (hypertension) Ventricular tachycardia Surgical History History of pubovaginal sling Hx of knee surgery Family History Father No problems noted. Mother No problems noted. 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 Uncertain significance. Of note, previous values have also been this way. Activity 1% of the day. [id number] Cardiac Device Interrogation, cardio physiologic monitor Procedure code (CPT) selection complete Assessment & Plan Assessment & Plan (1) Heart failure with reduced ejection fraction: Code(s): I50.20 - Unspecified systolic (congestive) heart failure Category: Medical (2) ICD (implantable cardioverter-defibrillator) in place: Comment: Biotronik single-chamber ICD placed at [facility] for sustained VT and LVEF of 30-35%. Code(s): Z95.810 - Presence of automatic (implantable) cardiac defibrillator Category: Medical Plan x Coding Level of Care Code Procedure Only Diagnoses Heart failure with reduced ejection fraction I50.20 ICD (implantable cardioverter-defibrillator) in place Z95.810 CPT Codes Cardiac Device Check - Cardiac Device 15: 82079-Gaztsi Cardiac Device Interrogation, cardio physiologic monitor ([id number])
== END ==
PROVIDERS: PCP Family Medicine; Visit Provider Internal Medicine
DX: I50.20 Unspecified systolic (congestive) heart failure (principal); Z95.810 Presence of automatic (implantable) cardiac defibrillator
CPT/HCPCS: 93297

== ENCOUNTER → 2024-09-12 23:59 | Outpatient (BNV) | payer OTHER, SELFPAY ==
--- NOTE | 2024-09-15 14:47 | MHC.OFFVIS ---
Intake Visit Reasons: Remote HF monitoring- Biotronik Allergies NSAIDS (Non-Steroidal Anti-Inflamma Allergy (Unknown, Verified 11/13/23 11:05) Unknown [facility] Medical History Paroxysmal atrial fibrillation Acute on chronic HFrEF (heart failure with reduced ejection fraction) ICD (implantable cardioverter-defibrillator) in place CAD (coronary artery disease) Ischemic cardiomyopathy Gallstones Elevated bilirubin ESRD (end stage renal disease) on dialysis ESRD (end stage renal disease) Hyperlipidemia HTN (hypertension) Ventricular tachycardia Surgical History History of pubovaginal sling Hx of knee surgery Family History Father No problems noted. Mother No problems noted. 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 ICD function is adequate [id number] Cardiac Interrogation, implant defibrillator w/interim Procedure code (CPT) selection complete Assessment & Plan Assessment & Plan (1) ICD (implantable cardioverter-defibrillator) in place: Comment: Biotronik single-chamber ICD placed at [facility] for sustained VT and LVEF of 30-35%. Code(s): Z95.810 - Presence of automatic (implantable) cardiac defibrillator Category: Medical Plan: See above Coding Level of Care Code Procedure Only Diagnoses ICD (implantable cardioverter-defibrillator) in place Z95.810 CPT Codes Cardiac Device Check - Cardiac Device 13: 61586-Oryzgs Cardiac Interrogation, implant defibrillator w/interim ([id number])
== END ==
PROVIDERS: PCP Family Medicine; Visit Provider Internal Medicine Cardiovascular Disease
DX: Z45.02 Encounter for adjustment and management of automatic implantable cardiac defibrillator (principal)
CPT/HCPCS: 93295

== ENCOUNTER → 2024-10-21 23:59 | Outpatient (BNV) | payer OTHER, SELFPAY ==
--- NOTE | 2024-10-22 16:52 | A.OFFVIS_ITS ---
Intake Visit Reasons: Remote HF monitoring- Biotronik Allergies NSAIDS (Non-Steroidal Anti-Inflamma Allergy (Unknown, Verified 11/13/23 11:05) Unknown [facility] Medical History Paroxysmal atrial fibrillation Acute on chronic HFrEF (heart failure with reduced ejection fraction) ICD (implantable cardioverter-defibrillator) in place CAD (coronary artery disease) Ischemic cardiomyopathy Gallstones Elevated bilirubin ESRD (end stage renal disease) on dialysis ESRD (end stage renal disease) Hyperlipidemia HTN (hypertension) Ventricular tachycardia Surgical History (Updated 10/17/24 @ 13:06 by SHANIKA Meehan) History of section History of hysterectomy History of cholecystectomy History of pubovaginal sling Hx of knee surgery Family History Father No problems noted. Mother No problems noted. 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 Heart failure parameters are stable [id number] Cardiac Device Interrogation, cardio physiologic monitor Procedure code (CPT) selection complete Assessment & Plan Assessment & Plan (1) ICD (implantable cardioverter-defibrillator) in place: Comment: Biotronik single-chamber ICD placed at [facility] for sustained VT and LVEF of 30-35%. Code(s): Z95.810 - Presence of automatic (implantable) cardiac defibrillator Category: Medical Plan: See above Coding Level of Care Code Procedure Only Diagnoses ICD (implantable cardioverter-defibrillator) in place Z95.810 CPT Codes Cardiac Device Check - Cardiac Device 15: 70571-Rubdtg Cardiac Device Interrogation, cardio physiologic monitor ([id number])
== END ==
PROVIDERS: PCP Family Medicine; Visit Provider Internal Medicine Cardiovascular Disease
DX: I49.9 Cardiac arrhythmia, unspecified (principal); Z95.810 Presence of automatic (implantable) cardiac defibrillator
CPT/HCPCS: 93297

== ENCOUNTER 2024-10-28 13:12 | Outpatient (AMB) | payer OTHER, SELFPAY ==
--- NOTE | 2024-10-28 13:21 | A.OFFVIS_ITS ---
Vital Signs 10/28/24 13:29 Height 5 ft Weight 124 lb BMI 24.2 BP 136/60 Blood Pressure Location Lt brachial Position Sitting Pulse 68 Pulse Source Pulse Oximeter Pulse Oximetry (%) 98 Oxygen Delivery Method Room Air Intake Visit Reasons: Colonoscopy screening Intake Note: New patient for colo recall. TA polypectomy [address] Aguirre. CC; Pt denies any GI sx or concerns at this time. Pt confirms that she is still actively having dialysis tx and is scheduled MWF. Fistula present in R arm. Interactive Graphic Designer Required: Yes Interactive Graphic Designer Services: Interactive Graphic Designer Present Interactive Graphic Designer Name: Jacque Pineda ([id number]) Information Interpreted: clinical only Accompanied by: Self / Same As Patient Allergies NSAIDS (Non-Steroidal Anti-Inflamma Allergy (Unknown, Verified 11/13/23 11:05) Unknown HPI HPI Colonoscopy screening: Details: 74-year-old female here for preprocedural meeting to discuss a screening colonoscopy. She is referred by [facility]. PMX Paroxysmal atrial fibrillation -on amiodarone and Eliquis History of NE/CAD/ischemic cardiomyopathy/ICD defibrillator-EF 30-35% Chronic CHF/IgA nephropathy End-stage chronic renal disease with hemodialysis Hypertension High cholesterol Secondary hyperparathyroidism - Pt unsure Diabetes - pt denies History of anasarca History of TIA Osteoporosis - Pt unsure Nephrolithiasis History of V-tach GERD Asymptomatic gallstones * SURGICAL HISTORY ICD place Left total knee replacement Pubovaginal sling -F-o-c-x-x-x-z-m-x-[id number]-i-j-o-m-y- Hysterectomy -I-t-p-a-r-e-a-n- -s-g-n-t-i-o-n- Colonoscopy-2016 Aguirre= 2 TA is * ALLERGIES NSAIDS * Profex LABS: Laboratory Tests 09/14/23 03/04/24 01:40 10:31 WBC 7.7 RBC 3.57 L Hgb 10.5 L Hct 34.0 L MCV 95.2 MCH 29.4 Plt Count 87 L Total Bilirubin 0.9 AST 31 ALT < 6 Alkaline Phosphatase 232 H TSH 2.07 She will need more current labs TODAY'S VISIT [facility] #[id number] Jeff Her last colonoscopy was in [address] Aguirre and there were 2 TA's. She denies any bowel or upper GI problems. She has severe cardiac disease and is on Eliquis and will need cardiac clearance. She also has ESRD and is on dialysis. She denies any respiratory problems. No prior problems with anesthesia or sedation. NO ID problems. [facility] Medical History (Updated 10/28/24 @ 13:37 by SHANIKA Meehan) Abdominal pain Abnormal EKG Cellulitis Anasarca Renal failure (ARF), acute on chronic Gallstones Paroxysmal atrial fibrillation Acute on chronic HFrEF (heart failure with reduced ejection fraction) ICD (implantable cardioverter-defibrillator) in place CAD (coronary artery disease) Ischemic cardiomyopathy Elevated bilirubin ESRD (end stage renal disease) on dialysis ESRD (end stage renal disease) Hyperlipidemia HTN (hypertension) Ventricular tachycardia Surgical History (Updated 10/28/24 @ 14:03 by SHANIKA Meehan) S/P cardiac pacemaker procedure H/O colonoscopy History of hysterectomy History of pubovaginal sling Hx of knee surgery Family History Father No problems noted. Mother No problems noted. 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) Unable to assess alcohol history related to: Unknown Alcohol intake: never Patient Tobacco Use Status: Never used Tobacco service: No Current occupational status: unemployed and disabled Review of Systems Const Denies fatigue, Denies fever(s), Denies night sweats, Denies poor appetite and Denies weight loss ENT Reports Normal hearing present, Denies dental pain, Denies dysphagia, Denies hearing loss, Denies mouth pain, Denies odynophagia, Denies throat swelling, Denies tongue swelling and Reports other (Dentition adequate) Card Reports no additional complaints and Reports dyspnea on exertion Resp Reports dyspnea on exertion GI Details: Denies abdominal pain, Denies melena, Denies bloating, Denies hematochezia, Denies constipation, Denies GI cramping, Denies dysphagia, Denies excessive flatus, Denies early satiety, Denies heartburn, Denies diarrhea, Denies nausea, Denies odynophagia, Denies vomiting and Denies hematemesis Musc Reports abnormal gait Skin/Breast Denies pruritus, Denies lesions, Denies rash and Denies jaundice Neuro Reports Normal hearing present, Denies Abnormal speech present and Reports abnormal gait Endo Denies fatigue Aller/Immun Denies throat swelling and Denies tongue swelling Physical Exam Vital Signs: Last Vital Signs Pulse 68 10/28/24 13:29 BP 136/60 10/28/24 13:29 Pulse Ox 98 10/28/24 13:29 Oxygen Delivery Method Room Air 10/28/24 13:29 BMI result Body Mass Index 24.2 Const General: cooperative, no acute distress, well developed and well groomed Nutritional Appearance: average body habitus and well nourished Orientation/consciousness: oriented to person, oriented to place and oriented to time Limitations: language barrier and ambulation with walker HEENT Head: Yes normocephalic and Yes atraumatic Eyes General: appearance normal, both eyes and all related structures Pupils: Equal, round and reactive pupils present Neck Neck: Yes normal visual inspection and Yes no lymphadenopathy Thyroid: Thyroid normal Resp Effort & Inspection: normal respiratory effort and able to speak in complete sentences Auscultation: clear to auscultation bilaterally Cardio Rate: regular rate Rhythm: regular rhythm Heart sounds: Murmur heart sound present (damon systolic with radiation over entire precordium and axilla/carotid) systolic Peripheral pulses: radial pulses present and posterior tibial pulses present GI Inspection: No distended, No Abdominal panniculus present and Yes obesity Palpation (GI): Soft to palpation, nontender, no guarding, not rigid and No hepatosplenomegaly present Percussion: Yes normal to percussion Auscultation: normal bowel sounds Rectal Exam - Female: deferred Skin General skin exam: no rashes or lesions noted, turgor normal, skin not dry, no jaundice, No spider nevi and no striae Rashes: no rashes Nails: normal Neuro General: oriented to person, oriented to place and oriented to time Cranial nerves: Yes Equal, round and reactive pupils present and Yes Normal hearing present Speech: No Abnormal speech present Extrem General: Yes normal to inspection, No clubbing, No cyanosis and No edema Psych Appearance: grossly normal and well kempt Mental Status: mental status grossly normal Speech and movement: Normal speech and movement present Affect: normal affect Attitude: cooperative Thought process: Normal thought process present and not confabulating Thought content: Normal thought content present Insight: Fair insight present (Psych) Judgement: Fair judgement present (Psych) Assessment & Plan Assessment & Plan (1) Pre-op examination: Code(s): Z01.818 - Encounter for other preprocedural examination Category: Medical (2) Tubular adenoma of colon: Comment: 2017 scope-Aguirre= 2 TA is Code(s): D12.6 - Benign neoplasm of colon, unspecified Category: Medical (3) Paroxysmal atrial fibrillation: Code(s): I48.0 - Paroxysmal atrial fibrillation Category: Medical (4) Heart failure with reduced ejection fraction: Code(s): I50.20 - Unspecified systolic (congestive) heart failure Category: Medical (5) ICD (implantable cardioverter-defibrillator) in place: Comment: Biotronik single-chamber ICD placed at [facility] for sustained VT and LVEF of 30-35%. Code(s): Z95.810 - Presence of automatic (implantable) cardiac defibrillator Category: Medical (6) Chronic kidney disease (CKD) stage G5/A1, glomerular filtration rate (GFR) less than or equal to 15 mL/min/1.73 square meter and albuminuria creatinine ratio less than 30 mg/g: Comment: PT ON DIALASYS Code(s): N18.5 - Chronic kidney disease, stage 5 Category: Medical (7) Chronic anticoagulation: Comment: On Eliquis Code(s): Z79.01 - continuous churn buttermaker (current) use of anticoagulants Category: Medical Plan [facility] #[id number] Jeff Her last colonoscopy was in [address] Aguirre and there were 2 TA's. She denies any bowel or upper GI problems. She has severe cardiac disease and is on Eliquis and will need cardiac clearance. She also has ESRD and is on dialysis. She denies any respiratory problems. No prior problems with anesthesia or sedation. NO ID problems. Orders: Orders Comprehensive Met. Panel Today N18.5 - Chronic kidney disease, stage 5, Z01.818 - Encounter for other preprocedural examination Complete Blood Count Auto Diff Today Z01.818 - Encounter for other preprocedural examination Colonoscopy - GI Use Only Today N18.5 - Chronic kidney disease, stage 5, Z01.818 - Encounter for other preprocedural examination Medications: New polyethylene glycol 3350 (Miralax) 238 grams PO ONCE 238 grams 0RF colonoscopy prep 1 day bisacodyl (Dulcolax (bisacodyl)) 10 mg (2 x 5 mg) PO BEDTIME 4 tabs 0RF 2 days Coding Level of Care Code New Pt Level 3 (07071) Diagnoses Pre-op examination Z01.818 Tubular adenoma of colon D12.6 Paroxysmal atrial fibrillation I48.0 Heart failure with reduced ejection fraction I50.20 ICD (implantable cardioverter-defibrillator) in place Z95.810 Chronic kidney disease (CKD) stage G5/A1, glomerular filtration rate (GFR) less than or equal to 15 mL/min/1.73 square meter and albuminuria creatinine ratio less than 30 mg/g N18.5 Chronic anticoagulation Z79.01
[2024-10-28 13:29] VITALS: BP 136/60; PULSE 68; O2SAT 98; BMI 24.2
== END 2024-10-28 14:12 | disposition home or self-care (01) ==
PROVIDERS: PCP Family Medicine; Visit Provider Nurse Practitioner
DX: Z86.0101 Personal history of adenomatous and serrated colon polyps (principal); Z01.818 Encounter for other preprocedural examination; Z12.11 Encounter for screening for malignant neoplasm of colon; N18.5 Chronic kidney disease, stage 5; Z99.2 Dependence on renal dialysis
CPT/HCPCS: 99203

== ENCOUNTER → 2024-10-28 13:12 | Outpatient (BNVA) | payer OTHER, SELFPAY | PROVIDERS: PCP Family Medicine; Visit Provider Nurse Practitioner | DX: Z01.818 Encounter for other preprocedural examination (principal); D12.6 Benign neoplasm of colon, unspecified; I48.0 Paroxysmal atrial fibrillation; I50.20 Unspecified systolic (congestive) heart failure; Z95.810 Presence of automatic (implantable) cardiac defibrillator; N18.5 Chronic kidney disease, stage 5; Z79.01 Long term (current) use of anticoagulants | CPT/HCPCS: 99202 ==

== ENCOUNTER 2024-10-30 12:43 | Outpatient (REF) | payer OTHER, SELFPAY ==
[2024-10-30 12:56] LABS: MANUAL DIFF FLAG NO
[2024-10-30 13:20] LABS: Basophils Percent Auto 0.5 % (0-2); Eosinophils Absolute Auto 0.1 X10*3/uL (0.0-0.4); Eosinophils Percent Auto 3.6 % (0-4); Hematocrit 38.2 % (37.0-47.0); Hemoglobin 11.6 g/dl (12.0-16.0); Imm Gran Abs Auto 0.02 X10*3/uL (0.00-0.03); Imm Gran Pct Auto 0.5 % (0.0-0.4); Lymphocytes Absolute Auto 1.3 X10*3/uL (1.2-4.9); Lymphocytes Percent Auto 32.2 % (20-40); Mean Corpuscular HGB Conc 30.4 g/dl (31.0-35.0); Mean Corpuscular Hemoglobin 30.1 pg (27.0-33.0); Mean Platelet Volume 9.9 fL (9.4-12.3); Monocytes Absolute Auto 0.6 X10*3/uL (0.1-1.2); Monocytes Percent Auto 15.9 % (2-11); Neutrophils Absolute Auto 1.9 x10*3/uL (2.0-8.3); Neutrophils Percent Auto 47.3 % (45-73); Red Blood Count 3.86 X10*6/uL (4.20-5.50); Red Cell Distribution Width 17.9 % (11.0-16.0); White Blood Count 3.9 X10*3/uL (4.8-10.8)
[2024-10-30 13:21] LABS: Platelet Count 64 X10*3/uL (160-400)
--- OUTSIDE RECORDS SUMMARY | 2024-10-30 13:47 | XMS_ITS | Data Portability ---
Author Organization [employer] [facility], [facility] Address [address] [place] [address] Care Team Providers Care Extrusion Die Corrector Name Role Phone [place], CASEY Primary Care Provider HIM CCA OTHER Assessment Encounter Date Assessment Date Assessment LastModified by Organization Details LastModified Time 11/06/2022 11/06/2022 Called to aniceto marks 72 y/o f w ESRD on HD, HTN, HF who c/o productive cough x 2 weeks. Denies fever, N/V/D or SOB. VSS Lungs: diffuse rhonci BLE: no edema b/l Rapid Flu-/Covid - NKDA Clinical picture not completely clear, appears to be c/w viral URI. Rapid flu/COVID - somewhat reassuring but there is a risk of false negatives. Plan to send for COVID PCR. Pt given dose of tessalon perles, plan to send supply to pharmacy. Alarm signs reviewed, advised to call 911 if onset. [email or web address] Not available 11/06/2022 15:35:29 11/09/2022 11/09/2022 I have reviewed and agree with the assessment and plan as documented by the perinatal instructor. I provided real time medical direction for this encounter and was immediately available to provide additional phone based assistance as needed. History as noted by perinatal instructor. Pt with ESRD on HD qMWF, had dialysis yesterday. Pt with >1 week of non productive cough, no dyspnea or fevers. Was seen by [facility] 3 days ago, had Covid PCR sent out, no results from sample yet. Pt was prescribed benzonatate 3 days ago and pt reports significant improved symptoms with this med but is almost out and is requesting more. She continues to deny any SOB or fevers. Pt had dialysis yesterday. On exam, pt comfortable, vitals normal and lungs clear. Rapid Covid today negative. Impression: Recent viral bronchitis, improving. Exam today normal. No other concerning symptoms. I prescribe more benzonatate for the pt. Pt instructed to seek medical attention right away with any worsening or new symptoms, which are reviewed with her. [email or web address] Not available 11/09/2022 11:12:56 01/30/2023 01/30/2023 I provided real -time medical direction via phone for this encounter, and was available for additional phone based assistance as needed. I have reviewed and agree with the Assessment and Plan as documented by the Cable Stretcher And Tester. Patient given the opportunity to ask questions. as per above, patient presents after trauma to the left ankle with bruising and swelling. She is able to bear weight. She cannot take Toradol for pain or any nonsteroidals due to her end-stage renal disease. She has been taking Tylenol with some good relief. Please see pictures above. It is reassuring that she can bear weight however given the extensive bruising, would recommend an x-ray which we will try to help her arrange your primary care provider. She was instructed to contact her primary care provider. We discussed the diagnostic uncertainty of home visits and the risk associated with this. In this case, the patient and I felt this to be an acceptable and reasonable amount of risk given the benefit of avoiding an ED visit. We discussed the need to seek care urgently/emergentl y in the setting of any new or worsening serious symptoms, particularly fever chills lightheadedness altered mental status , inability to bear weight [email or web address] Not available 01/30/2023 16:12:41 09/13/2023 09/13/2023 I provided real -time medical direction via phone for this encounter, and was available for additional phone based assistance as needed. I have reviewed and agree with the Assessment and Plan as documented by the Cable Stretcher And Tester. We discussed the diagnostic uncertainty of home visits and the risk associated with this. In this case the patient and I felt this to be an acceptable and reasonable amount of risk given the benefit of avoiding an ED visit. The patient given the opportunity to ask questions. Advised if develops-severe H/A- severe eye pain / acute visual changes /uncontrolled n/v/d / AMS/ syncope/ hi fever to call 911- verbalized understanding of instruction [email or web address] Not available 09/13/2023 11:24:32 Plan of Treatment Reminders Order Date Submit Date Provider Last Modified By Organization Details Last Modified Time Details Appointments None recorded. Lab rapid SARS CoV 2 Ag, QL IA, respiratory specimen 2024 025 [facility], [address] [place] [address], [id number] 5 16:34:52 rapid flu (A+B) 2024 025 [facility], [address] [place] [address], [id number] 5 16:34:52 rapid SARS CoV 2 Ag, QL IA, respiratory specimen 2022 023 [email or web address], [address] [place] [address], [id number] 3 11:07:46 SARS CoV 2 RNA (COVID-19), QL, brisket puller-PCR, respiratory specimen 2022 023 [facility] (Centralized Electronic Ordering - All Locations), Patient Can Go To The Location Of Their Choice, [id number] 3 10:28:21 Referral None recorded. Procedures None recorded. Surgeries None recorded. Imaging None recorded. Medication Orders polymyxin B sulfate 10,000 unit-trimet hoprim 1 mg/mL eye drops 2023 024 [id number], [address] [place], [place], [id number], 4 11:28:08 benzonatate 100 mg capsule 2022 023 [id number], [address] [place], [place], [id number], 3 11:08:51 benzonatate 100 mg capsule 2022 023 [facility][id number], [address] [place], [place], [id number], 3 15:35:43 Patient TargetsNo targets recorded. Patient InstructionsNo instructions recorded. Reason for Referral None Reported. Results Created Date Observation Date Name Description Value Unit Range Abnormal Flag Note LastModifiedBy Organization Detail LastModifiedTime 11/07/19 23 11/06/2022 COVID -19 (NOVE L CORON AVIRU S) PCR results Test not perfo rmed, incor rect spec. type Not Available [facility] (Centralized Electronic Ordering - All Locations) Patient Can Go To The Location Of Their Choice, [id number] 11/07/2022 09:02:46 11/10/19 23 11/09/2022 rapid SARS CoV 2 Ag, QL IA, respi rator y speci men rapid SARS CoV 2 Ag, QL IA, respiratory specimen negati ve Not Available [facility] ed [address] [place] [address], [id number] 11/09/2022 11:07:07 06/21/19 25 06/21/2024 rapid flu (A+B) Flu negati ve Not Available [facility] ed [address] [place] [address], [id number] 06/21/2024 16:34:32 06/21/19 25 06/21/2024 rapid SARS CoV 2 Ag, QL IA, respi rator y speci men rapid SARS CoV 2 Ag, QL IA, respiratory specimen negati ve Not Available [facility] ed [address] [place] [address], [id number] 06/21/2024 16:34:27 Result Notes None recorded. Medical Equipment None Reported. Allergies No known drug allergies Medications Name Sig Start Date Stop Date Status Note LastModified by Organization Details LastModified Time atorvastatin 80 mg tablet TAKE 1 TABLET BY MOUTH EVERY EVENING active Not Available Not Available No t Available carvedilol 6.25 mg tablet TAKE 1 TABLET BY MOUTH TWICE DAILY active Not Available Not Available No t Available cefuroxime axetil 250 mg tablet TAKE 1 TABLET BY MOUTH DAILY active Not Available Not Available Not Available amiodarone 200 mg tablet TAKE 1/2 TABLET BY MOUTH DAILY active Not Available Not Available Not Available benzonatate 200 mg capsule TAKE 1 CAPSULE BY MOUTH THREE TIMES DAILY NEEDED FOR COUGH active Not Available Not Available No t Available metronidazol e 500 mg tablet TAKE 1 TABLET BY MOUTH TWICE DAILY active Not Available Not Available No t Available levofloxacin 250 mg tablet TAKE 2 TABLETS BY MOUTH TODAY THEN 1 TABLET EVERY OTHER DAY FOR 2 WEEKS active Not Available Not Available No t Available carvedilol 3.125 mg tablet TAKE 1 TABLET BY MOUTH TWICE DAILY active Not Available Not Available No t Available lidocaine-pr ilocaine 2.5 %-2.5 % topical cream APPLY TO SKIN ONCE DAILY TO ABSCESS BEFORE DIALYSIS active Not Available Not Available No t Available magnesium oxide 400 mg (241.3 mg magnesium) tablet TAKE 1 TABLET BY MOUTH DAILY active Not Available Not Available Not Available benzonatate 100 mg capsule TAKE 1 CAPSULE BY MOUTH THREE TIMES DAILY FOR 7 DAYS NEEDED active Not Available Not Available No t Available oseltamivir 75 mg capsule TAKE 1 CAPSULE BY MOUTH TWICE DAILY FOR 5 DAYS active Not Available Not Available No t Available polymyxin B sulfate 10,000 unit-trimeth oprim 1 mg/mL eye drops Instill 1 drop 4 times a day by ophthalmic route for 7 days. active Not Available Not Available No t Available oxycodone 5 mg capsule TAKE 1 CAPSULE BY MOUTH EVERY 6 HOURS FOR 2 DAYS NEEDED FOR PAIN active Not Available Not Available No t Available docusate sodium 100 mg capsule TAKE 1 CAPSULE BY MOUTH TWICE DAILY NEEDED FOR CONSTIPATIO N active Not Available Not Available No t Available omeprazole 20 mg capsule,stuart yed release TAKE 1 CAPSULE BY MOUTH EVERY DAY BEFORE A MEAL active Not Available Not Available No t Available cefuroxime axetil 500 mg tablet TAKE 1 TABLET BY MOUTH EVERY 12 HOURS active Not Available Not Available No t Available doxycycline hyclate 100 mg tablet active Not Available Not Available No t Available loratadine 10 mg tablet TAKE 1 TABLET BY MOUTH EVERY OTHER DAY active Not Available Not Available No t Available oxycodone 5 mg tablet TAKE 1 TABLET BY MOUTH EVERY 8 HOURS FOR 2 DAYS NEEDED FOR PAIN. DO NOT DRIVE ON NARCOTIC MEDICATION active Not Available Not Available N ot Available cholecalcife rol (vitamin D3) 25 mcg (1,000 unit) capsule TAKE 1 CAPSULE BY MOUTH EVERY DAY active Not Available Not Available No t Available calcium 600 mg (as carbonate)-v itamin D3 10 mcg (400 unit) tablet TAKE 1 TABLET BY MOUTH EVERY MORNING active Not Available Not Available No t Available FreeStyle Lite Strips USE TO TEST BLOOD SUGAR TWICE DAILY active Not Available Not Available Not Available sevelamer carbonate 800 mg tablet TAKE 1 TABLET BY MOUTH THREE TIMES DAILY AT THE BEGINNING OF EACH MEAL active Not Available Not Available No t Available TRUEplus Lancets 33 gauge USE DIRECTED TO TEST BLOOD SUGAR TWICE DAILY. active Not Available Not Available No t Available Eliquis 5 mg tablet TAKE 1 TABLET BY MOUTH TWICE DAILY active Not Available Not Available No t Available Eliquis 2.5 mg tablet TAKE 1 TABLET BY MOUTH TWICE DAILY active Not Available Not Available No t Available Vitals Date Recorded Oxygen saturation Oxygen saturation in Arterial blood by Pulse oximetry Heart rate Respiratory rate Body temperature Systolic blood pressure Diastolic blood pressure Provider Name and Address Organization Details Last Updated DateTime 5 97 % 97 % 71 /min 18 /min 99 [degF] 123 mm[Hg] 69 mm[Hg] Not Available [facility] 5 16:29:21 Date Recorded Respiratory rate Heart rate Body temperature Oxygen saturation Oxygen saturation in Arterial blood by Pulse oximetry Systolic blood pressure Diastolic blood pressure Provider Name and Address Organization Details Last Updated DateTime 4 16 /min 81 /min 99.4 [degF] 99 % 99 % 122 mm[Hg] 74 mm[Hg] Not Available [employer] 4 11:15:43 Date Recorded Body temperature Respiratory rate Heart rate Body weight Oxygen saturation Oxygen saturation in Arterial blood by Pulse oximetry Systolic blood pressure Diastolic blood pressure Provider Name and Address Organization Details Last Updated DateTime 3 97.8 [degF] 14 /min 66 /min 66867.8 8 g 98 % 98 % 116 mm[Hg] 66 mm[Hg] Not Available [employer] 3 15:07:28 Date Recorded Respiratory rate Heart rate Oxygen saturation Oxygen saturation in Arterial blood by Pulse oximetry Body temperature Body weight Systolic blood pressure Diastolic blood pressure Provider Name and Address Organization Details Last Updated DateTime 3 16 /min 80 /min 100 % 100 % 97.3 [degF] 15203 g 131 mm[Hg] 72 mm[Hg] Not Available [employer] 3 11:05:08 Date Recorded Respiratory rate Heart rate Oxygen saturation Oxygen saturation in Arterial blood by Pulse oximetry Systolic blood pressure Diastolic blood pressure Provider Name and Address Organization Details Last Updated DateTime 3 16 /min 74 /min 98 % 98 % 126 mm[Hg] 72 mm[Hg] Not Available [employer] 3 16:10:34 Social History None recorded. Functional Status None recorded. Mental Status None recorded. Family History Nothing Reported. Medical History No medical history recorded. Gynecological HistoryNo gynecological history recorded. Obstetrics History GPAL:G 0 P 0 0 0 0 Past Encounters Encounter ID Performer Location Encounter Start Date Encounter Closed Date Diagnosis/Indication Diagnosis SNOMED-CT Code Diagnosis ICD10 Code Diagnosis Note [id number] Yajaira Soto MD [facility] - [address] [id number] 11/06/2022 15:05:23 11/07/2022 11:44:53 Viral upper respiratory tract infection 484974383 J06.9 [id number] Sd Naranjo [facility] [address] [place] [id number] 11/09/2022 11:05:06 11/09/2022 11:33:00 Acute viral bronchitis [id number] J20.8 [id number] Mahi Freed MD [facility] - [address] [address] 01/30/2023 16:10:24 01/31/2023 12:13:23 Pain of left ankle joint 2029034760 [id number] M25.572 [id number] Kimmy Valdez MD [facility] - [address] [id number] 09/13/2023 11:15:32 09/14/2023 12:17:44 Acute conjunctivitis 27683406 H10.31 advised to avoid rubbing eye/ good hand washing before and after touching eye- do not touch applicator directly to eye- advised should be seen in person for full eye exam- has ophthalmol ogy appt end of September- advised to try and move upor see pcp [id number] CHESTER GRIFFIN MD [facility] - [address] [id number] 06/21/2024 16:19:58 06/23/2024 15:07:03 Viral upper respiratory tract infection 451537572 J06.9 Evaluation in the field was performed by my perinatal instructor colleague, as noted above, I provided real-time direction and supervisio n for this visit. The evaluation revealed a 73-year-ol d female presenting with flu-like symptoms. Due to a language barrier, the patient's daughter assisted with translatio n. The patient reports experienci ng congestion and a productive cough with yellow phlegm for the past four days. She had one episode of vomiting on the first day, which has since resolved, with no hematemesi s or melena. The patient has not taken any flu medication s for symptom management . She denies fever, recent trauma, or recent hospitaliz ations. Vital Signs: BP 123/69 mmHg, HR 71 bpm, RR 18, SpO 97% on room air, Temperatur e 99.0 FPhysical Exam: Alert, active, and oriented; no acute distress. Lungs clear to auscultati on bilaterall y. Abdomen soft, non-tender , non-disten ded. No lower extremity edema.Poin t-of-care COVID-19 and influenza tests negative.A llergies reviewed Impression :Viral upper respirator y tract infection. Plan:-Pt was offered Tessalon Perls but refused-En couraged to stay hydrated and drink plenty of fluids, such as water, herbal teas, or clear broths.-Pt advised to avoid irritants like smoke, strong odors, and allergens that could worsen symptoms.- Recommende d the use of over-the-c ounter ibuprofen for fever or body aches and decongesta nts or antihistam adán for congestion if needed-Red flags were discussed with the patient and daughter .Primary care, consider__ _ Dispositio n:We discussed the diagnostic uncertaint y of home visits and the risk associated with this. In this case, the patient and I felt this to be an acceptable and reasonable amount of risk given the benefit of avoiding an ED visit. We discussed the need to seek care urgently/e mergently in the setting of any new or worsening serious symptoms, particular ly persistent or high fever that does not improve with antipyreti cs, shortness of breath, difficulty breathing, or chest pain, worsening or prolonged symptoms lasting more than 10 days, severe headache, ear pain, or facial swelling suggestive of sinus or ear infection, new or unusual symptoms, such as confusion, rash, or weakness. Health Concerns Section Related Observation LastModified by Organization Detai ls LastModified Time None Recorded Concern Status LastModified by Organization Details LastModified Time None Recorded Advance Directives Directive None Recorded Payers Insurance Date Sequence Insurance Name Policy Number Policy Phillip Covered Member ID Phillip Member ID Guarantor Name 06/21/2024 1 [facility] - DOS ON OR AFTER 2022 - DUAL ELIGIBLE - LONG-TERM OPTIONS AND ONE CARE (MEDICARE REPLACEMENT/AD VANTAGE - HMO) Gabriel Beck [id number] Loevedith Beck Notes Date Note Type Note Provider Name and Address Organization Details Recorded Time 11/06/2022 text/html HPI: PT has congested cough, goes to dialysis and unable to clear the cough>lungs sound pretty congested. Has slightly productive cough with thick yellow phlegm. Does go to dialysis, concerned with filling up lungs with fluid. .................. .................. .................. .................. .................. .................. .................. ............... [facility] Nursing Assessment: Comments: Unable to reach requestor for further triage. .................. .................. .................. .................. .................. .................. .................. ............... Cable Stretcher And Tester Note From Rj Gamez: Pt complains of productive cough with green/yellow sputum X2 weeks that is worse at night when she lays down for sleep. Pt denies SOB, CP, NVD or fever. Pt does not use inhaler, nebulizer or CPAP currently . Pt presents COAX 4 speaking in full sentences. Skin PWD, HEENT unremarkable, PERRL, airway patent with adequate tidal volume and diffuse rhonchi heard in all stuart. Abdomen soft and non distended in all quadrants. Arms and legs unremarkable with CMS intact and no pedal edema noted. VS stable and pt afebrile with POC flu and Covid both -. [facility] contacted who prescribed 100mg Tessalon Perrls PO and requested another covid sample to be collected and brought to lab at [facility]. Medication was administered as directed and additional sample collected . Pt was educated on S/SX that would indicate 911/ED visit and was told to follow up with PCP. [facility] Lab Orders: SARS CoV 2 RNA (COVID-19), QL, brisket puller-PCR, respiratory specimen: Performed .................. .................. .................. .................. .................. .................. .................. ............... Disposition: Fulfilled Yajaira Soto MD [address] [place] [address],[address], [place], [phone], [employer] 11/06/2022 16:06:09 11/09/2022 text/html This was a supervised home visit with perinatal instructor Carlos Ponce. [facility] Nursing Assessment: Chief Complaints: URI PMH: Heart Disease, CHF, Hypertension Allergies: Unknown Comments: Pt seen on 11/06, COVID PCR Was collected but no results came back dye to integrity . SPoke to member who requested follow up visit for 11/09. Per member at HD< cough is better but still there. PT has congested cough, goes to dialysis and unable to clear the cough>lungs sound pretty congested. Has slightly productive cough with thick yellow phlegm. Does go to dialysis, concerned with filling up lungs with fluid. Pt given 100mg Tessalon Perrls PO .................. .................. .................. .................. .................. .................. .................. ............... Cable Stretcher And Tester Note From Carlos Ponce: Pt reports 1. 5 weeks of dry cough that seems to be improving. Pt was seen by [facility] on 11/06 and prescribed benzonatate which pt sts is working well. Pt has HD on //, missed Mondays appt but was dialyzed yesterday. Pt denies CP SOB, GEE, f/n/v/d. Pt is eating and drinking normally. Pt is alert, no distress. VSS Afebrile. Neuro exam and gait normal. Lungs CTA. ABD soft, non tender. No LLE. POC covid negative. Pts sx seem c/w viral URI. C rx more benzonatate. Pt educated on supportive care and instructed to seek emergent medical care for new or worsening sx, which are reviewed with her. [facility] Lab Orders: rapid SARS CoV 2 Ag, QL IA, respiratory specimen: Performed Comment: negative .................. .................. .................. .................. .................. .................. .................. ............... Disposition: Fulfilled Sd Naranjo MD [address] [facility],[address], [place], [phone], [facility] 11/09/2022 12:25:06 01/30/2023 text/html CRC Nursing Assessment: Reason For Request: Pt states dropping something on her left leg as she was walking which happened about 2 weeks ago>discoloration (bruising)>no swelling>pain and difficulty when walking. Chief Complaints: Pain PMH: Heart Disease, CHF, Hypertension Allergies: No Known Comments: CRC RN did not require any additional information to process this visit. .................. .................. .................. .................. .................. .................. .................. ............... Cable Stretcher And Tester Note From Carlos Ponce: Pt reports dropping a baby gate on her left ankle on 01/16. Pt taking Tylenol with little relief. Pt is an HD pt who is not anuric. Pt still c/o pain with movement. Pt is alert, NAD. VSS. Neuro exam normal. Left ankle is bruised, no edema or warmth, strong pulses, pain with ROM. Pt advise to call PCP s office today for imaging. Pt educated on RICE techniques. .................. .................. .................. .................. .................. .................. .................. ............... Disposition: Fulfilled Mahi Freed MD [address] [facility],[address], [place], [phone], [employer] 01/30/2023 16:12:56 09/13/2023 text/html CRC Nurse Triage Notes (Bailee Alonso): Chief Complaints: Pain PMH: Heart Disease, CHF, Hypertension Allergies: No Known Comments: Mauritanian speaking member. Triage via [employer]. RN inspector automatic typewriter verified name//address. Last night member developed right eye irritation. Member reports redness and itching with white/green drainage. .................. .................. .................. .................. .................. .................. .................. ............... Cable Stretcher And Tester Note From Edwin Crow: Dispatched to the call address for the female with eye pain. Pt states last night she noticed her eye was really red, itchy, slightly painful and was watery. Pt denies any trauma to the eye. She has full range of motion without increased pain. She denies vision changes, dizziness, fevers, headache or any other complaint. Pt was found opening door, CAOx4, airway open and patent, breathing non labored, able to speak in full sentences, -JVD, -HEENT, skin PWD with good turgor, mucous membranes pink and moist, pupils PERRL right eye with reddening, A-febrile, -edema, lung sounds clear and equal. [facility] consulted. Script called into preferred pharmacy. Red flags discussed. ALL times are approx. .................. .................. .................. .................. .................. .................. .................. ............... Disposition: Fulfilled Kimmy Valdez MD [address] [facility],[address], [place], [phone], [facility] 09/14/2023 08:49:00 06/21/2024 text/html CRC Nurse Triage Notes (Kishor Garsia - BUD): Patient Reports: Sputum increase ; Cough Denies: Increased work of breathing/labored with or without fever Unable to speak in full sentences without distress Discoloration of skin -cyanosis Needs to sleep sitting up, can t catch breath Shortness of breath in setting of confusion Cough, fever greater than 2 days Lower extremity swelling History of asthma, increased use of inhaler COPD Shortness of breath with exertion Pain with inspiration Chief Complaints: Breathing problems PMH: Coronary Artery Disease, Congestive Heart Failure, Hypertension PMH Reviewed at 06/20/2024 - : Allergies Reviewed at 06/20/2024 - : Comments: Underwear Finisher verified the Pt.'s name//address and phone number. Education provided on the response time and the Pt. was advised to monitor reported s/s and seek emergency treatment if needed. Pt reports feeling unwell with a cough/cold and congestion - Increased coughing and SOB - Pt is speaking full sentences at this time - Fatigue - S/S since Sunday - Denies fever - Denies headache and sore throat - Denies taking over the counter cold medication. Wellness check requested 06/20 8:29p- call to patient via Gm Video as we are at capacity for the evening. Patient aware we cannot see her this evening, she is agreeable to a visit tomorrow 06/21- Cable Stretcher And Tester Organization Information for Anderson Soto Business Legal Name: [employer]. Address: [address] [place] [address], Print Shop Assistant: Sahil Hendricks MD CLIA No.: [id number] Cable Stretcher And Tester POC Test Results from Anderson [facility] Rapid influenza antigen (16:30:51) Flu: - Attachments uploaded as part of this test result can be found under Documents section. Rapid COVID antigen (16:30:53) COVID: - Attachments uploaded as part of this test result can be found under Documents section. .................. .................. .................. .................. .................. .................. .................. ............... Cable Stretcher And Tester Note From Anderson Soto: SC 12 dispatched to the address listed above for the report of a female green party with flu symptoms. Arrival on scene, patient was found inside apartment with daughter seated in chair, alert and oriented x4, patent airway, breathing non labored speaking in complete sentences, skin WPD in no obvious distress. +/= Chest rise. -SOB, -CP, -NVD, -Trauma, -Fever. GCS 15. Lung sounds clear in all stuart. Abdomen soft, non tender, non distended. Language barrier present so daughter translated for patient. Patient reports that she has been experiencing congestion and productive cough with yellow phlegm x4 days. Patient reports one episode of vomiting on the first days with no blood or black vomit, reports that vomiting has subsided. Patient reports that she has not taken any flu medications for symptom management. Patient denies any fevers, recent trauma, or recent hospitalizations. Patient vital signs obtained as noted. FLU/COVID POC test performed and negative for all. [facility] consulted, advised patient we could give Benzonatate for cough which patient refused. Patient advised to continue drinking plenty of fluids and get plenty of rest. Red flags discussed with patient, advised to seek medical attention if condition worsens. SC12 clear. .................. .................. .................. .................. .................. .................. .................. ............... [facility] Consulted: Chester Griffin .................. .................. .................. .................. .................. .................. .................. ............... Disposition: Fulfilled CHESTER GRIFFIN MD [address] [facility],[address] [facility], [place], [address], GO - NEHAL BARBER 06/22/2024 00:25:02 OBGyn Episode No OBEpisode recorded.
[2024-10-30 14:29] LABS: Alanine Aminotransferase 25 U/L (0-31); Albumin Level 3.4 g/dL (3.5-5.0); Alkaline Phosphatase 227 U/L (39-117); Anion Gap 16 (12-20); Aspartate Amino Transferase 63 U/L (5-31); Bilirubin Total 0.8 mg/dL (0.0-1.0); Blood Urea Nitrogen 26 mg/dL (9-16); Calcium 9.6 mg/dL (8.4-10.2); Carbon Dioxide 28 mmol/L (22-29); Chloride 104 mmol/L (96-108); Estimated Glomerular Filt Rate 10; Glucose Random 75 mg/dL (60-115); Potassium 4.5 mmol/L (3.3-5.1); Sodium 143 mmol/L (135-145); Total Protein 7.5 g/dL (6.5-8.0)
== END 2024-10-30 12:44 | disposition home or self-care (01) ==
LOC: HO.LAB 12:43
PROVIDERS: PCP Family Medicine; Visit Provider Nurse Practitioner
DX: Z01.818 Encounter for other preprocedural examination (principal); N18.5 Chronic kidney disease, stage 5
CPT/HCPCS: 36415; 80053; 85025

== ENCOUNTER 2024-11-25 12:59 | Outpatient (REF) | payer OTHER, SELFPAY ==
--- OUTSIDE RECORDS SUMMARY | 2024-11-25 14:14 | XMS_ITS | Encounter Summary ---
Author Organization [facility], Address [address] [place] [address] Phone Care Team Providers Care Salesforce Administrator Name Role Phone [place], Christiane Ramey MD Primary Care Provider Latrell oviedo Encounter Details Date Type Department Care Team (Late st Contact Info) Description 11/19/2024 Treatment [facility], [address] [place] [address] Aria Santiago FNP-C [address] [place] [phone] End stage renal disease; Dependence on renal dialysis Social History Tobacco Use Types Packs/Day Years Used Date Smoking Tobacco: Never Smokeless Tobacco: Never Alcohol Use Standard Drinks/Week Comments Never 0 (1 standard drink = 0.6 oz pur e alcohol) Comments Unknown Sex and Gender Information Value Date Recorded Sex Assigned at Not on file Legal Sex Female 4:35 PM EST Gender Identity Not on file Sexual Orientation Not on file documented as of this encounter Miscellaneous Notes * Dialysis Note - Aria Santiago FNP-C - 11/19/2024 12:00 AM EDT Patient: Gabriel Beck, 1950, 74y, F Dialysis Location: [facility] Attending Dry Charge Process Attendant: Sanjeev Forrester Service Date: 11/19/2024 Service Provider: Aria Madamas, LEASES AND LAND SUPERVISOR I met face to face with the patient today. OVERVIEW The patient presented with ESRD on dialysis Primary cause of renal failure: Recurrent and persistent hematuria with other morphologic changes LAST HOSPITALIZATION Discharge Diagnosis: K81.2 Acute cholecystitis with chronic cholecystitis R11.0 Nausea Admission Date 09/14/23 Discharge Date 09/15/23 DIALYSIS PRESCRIPTION IHD 3x Week Start date: 11/07/24 Dialyzer: 160NRe Optiflux BFR: 450 DFR: Manual 500 Potassium: 2.0 Sodium: 138 EDW: 52 Duration: 4:00 Calcium: 2.50 Bicarb: 32 Rx updated on: 11/07/2024 TREATMENT ASSESSMENT BP Stand Pre 11/19/2024: 135/70 11/17/2024: 142/79 11/14/2024: 137/67 BP Sit Pre 11/19/2024: 138/72 11/17/2024: 130/76 11/14/2024: 126/71 BP Stand Post 11/19/2024: 111/65 11/17/2024: 128/59 11/14/2024: 117/69 BP Sit Post 11/19/2024: 127/60 11/17/2024: 132/84 11/14/2024: 115/64 Tx Duration 11/19/2024: 4:00 11/17/2024: 4:01 11/14/2024: 3:51 Missed Treatments 0 - last 30 days 1 - last 60 days 09/22 - recent FLUID ASSESSMENT EDW (kg) 11/19/2024: 52.0 11/17/2024: 52.0 11/14/2024: 52.0 Weight Pre (kg) 11/19/2024: 54.9 11/17/2024: 54.0 11/14/2024: 54.2 Weight Post (kg) 11/19/2024: 53.1 11/17/2024: 53.0 11/14/2024: 51.9 PWV (kg) 11/19/2024: 1.1 11/17/2024: 1.0 11/14/2024: -0.1 UF Rate (mL/kg/hr) 11/19/2024: 8.5 11/17/2024: 4.7 11/14/2024: 11.5 ADEQUACY ASSESSMENT spKt/V, URR 11/12/2024: 2.31, 85.0 10/15/2024: 2.14, 84.0 09/17/2024: 1.67, 76.0 ACCESS ASSESSMENT Access Type: AVGraft Access SubType: Synthetic - Standard (PTFE) Access Status: Active (In Use) - 11/25/2021 Access Location: Right Upper Arm Created: 11/01/2021 Flow 11/19/2024: 1212 10/22/2024: 1351 09/26/2024: 1234 ANEMIA ASSESSMENT HGB, TSAT 11/12/2024: 11.4, 32.0 11/05/2024: 10.7, - 10/29/2024: 10.8, - Ferritin 11/12/2024: 1221.0 10/15/2024: 1190.0 09/17/2024: 1227.0 Mircera, IVP (mcg) 11/05/2024: 150 10/22/2024: 200 10/08/2024: 200 Iron Sucrose (Venofer) (mg) 11/14/2024: 50 11/07/2024: 50 10/31/2024: 50 BMM ASSESSMENT PTH, Intact 11/12/2024: 93.0 10/15/2024: 219.0 09/17/2024: 159.0 Calcium, Phosphorus 11/12/2024: 9.3, 4.9 10/15/2024: 9.0, 6.6 09/17/2024: 8.9, 5.9 Vitamin D (Calcitriol) Oral (mcg) 11/19/2024: 0.75 11/17/2024: 0.75 11/14/2024: 0.75 NUTRITION ASSESSMENT Potassium, Albumin 11/12/2024: 5.2, 3.3 10/15/2024: 4.6, 3.3 09/24/2024: 5.8, - eNPCR 11/12/2024: 0.86 10/15/2024: 0.97 09/17/2024: 0.93 DIAGNOSIS Chief Complaint: N18.6 End stage renal disease Comments: Patient seen and examined. VSS with no complaints to offer. S1, S2. RRR, LS CTA BL. Access patent Patient data updated 11/20/2024 at 6:31 AM Signed By: Aria Santiago NP on 11/20/2024 6:31:41 AM documented in this encounter Plan of Treatment Upcoming Encounters Date Type Department Care Team (Late st Contact Info) Description 08/11/2025 10:00 AM EDT Procedure visit [facility] [address] [place] [address] documented as of this encounter Visit Diagnoses Diagnosis End stage renal disease Dependence on renal dialysis documented in this encounter Care Teams Salesforce Administrator Relationship Specialty Start Date End Date Christiane Vernon MD PCP - General 03/18/19 documented as of this encounter
--- OUTSIDE RECORDS SUMMARY | 2024-11-25 14:14 | XMS_ITS | Encounter Summary ---
Author Organization [employer] Address [address] [facility] [address] [place] [address] Care Team Providers Care Pumping Station Supervisor Name Role Phone [place], Christiane NAVARRO Primary Care Provider [phone] Sanjeev Forrester MD Unavailable [phone] Lee Lanza MD Unavailable [phone] Orion Adams MD Unavailable August Unavailable Reason for Visit * Reason Comments Med Refill Encounter Details Date Type Department Care Team (Late st Contact Info) Description 07/02/2024 Refill [facility] [address] [place] [address] Mariya Espinal MD [address] [place], [place] [id number] Social History Tobacco Use Types Packs/Day Years Used Date Smoking Tobacco: Never Passive Smoke Exposure: Never Smokeless Tobacco: Never Alcohol Use Standard Drinks/Week Comments Never 0 (1 standard drink = 0.6 oz pur e alcohol) Depression Answer Date Recorded Patient Health Questionnaire-9 Score 0 10/04/2023 Patient Health Questionnaire-9 Score 0 10/04/2023 Last PHQ-9: Questionnaire Data Not on file 0 10/04/2023 Housing Stability Answer Date Recorded What is your housing situation today? I have tory lubin 10/04/[address] you li ve. Do you have problems with any of the following? None of the above 10/04/2023 Food Insecurity Answer Date Recorded Within the past 12 months, y ou worried that your food would run out before you got money to buy more: Never True 10/04/2023 Within the past 12 months,th e food you bought just didn't last and you didn't have enough money to get more: Never True Transportation Answer Date Recorded In the past 12 months, has l ack of transportation kept you from medical appts, meetings, work or from getting things needed for daily living? No 10/04/2023 Utilities Answer Date Recorded In the past 12 months, has t he electric, gas, oil or water company threatened to shut off services in your home? No 10/04/2023 Depression Answer Date Recorded Patient Health Questionnaire-2 Score 0 10/04/2023 Internet Access Answer Date Recorded Internet Access Q1 No 02/14/2024 Internet Access Q2 I do not want or need it 07/2023 Comments Unknown Sex and Gender Information Value Date Recorded Sex Assigned at Female 03/13/2022 10:14 AM EDT Legal Sex Female 10:14 AM EDT Gender Identity Female 03/13/2022 10:14 AM EDT Sexual Orientation Straight 03/13/2022 10 :14 AM EDT documented as of this encounter Plan of Treatment Not on file documented as of this encounter Visit Diagnoses Not on filedocumented in this encounter Additional Health Concerns Assessment Noted Time PHQ-9 Depression Total Score: 0 10/04/19 9:54 AM EDT documented as of this encounter Care Teams Pumping Station Supervisor Relationship Specialty Start Date End Date Christiane Vernon MD [address] [place] [address] PCP - General Family Medicine 01/02/12 Sanjeev Forrester MD [address] [place] [phone] Nephrology 04/03/24 Lee Lanza MD [address] [place] [address] Cardiology 07/09/24 Orion Adams MD [address] [place] [address] Cardiology 09/16/[address] [place] [address] Drive 3rd [place] [address] Gastroenterology 10/29/24 documented as of this encounter
--- OUTSIDE RECORDS SUMMARY | 2024-11-25 14:14 | XMS_ITS | Data Portability ---
Author Organization [employer] [facility], [facility] [employer] [facility] Address [address] [place] [address] Care Team Providers Care Department Manager Name Role Phone [place], CASEY Primary Care [...] assessment and plan as documented by the carpenter supervisor. I provided real time medical direction for this encounter and was immediately available to provide additional phone based assistance as needed. History as noted by carpenter supervisor. Pt with ESRD on HD qMWF, had dialysis yesterday. Pt with >1 week of non productive cough, no dyspnea or fevers. [facility] had Covid PCR sent [...] Assessment and Plan as documented by the Band Singer. Patient given the opportunity to ask questions. [...] Assessment and Plan as documented by the Band Singer. We discussed the diagnostic uncertainty of home [...] to call 911- verbalized understanding of instruction [email or web address] Not available 09/13/2023 11:24:32 Plan of Treatment Reminders Order Date Submit Date Provider Last Modified By Organization Details Last Modified Time Details Appointments None recorded. Lab rapid SARS CoV 2 Ag, QL IA, respiratory specimen 2024 025 [facility], [address] [place] [address], [id number] 5 16:34:52 rapid flu (A+B) 2024 025 [facility], [address] [place] [address], [id number] 5 16:34:52 rapid SARS CoV 2 Ag, QL IA, respiratory specimen 2022 [facility] [address] [place] [address], [id number] 3 11:07:46 SARS CoV 2 RNA (COVID-19), QL, satellite manager-PCR, respiratory specimen 2022 023 [facility] (Centralized Electronic Ordering - All Locations), Patient Can Go To The Location Of Their Choice, [id number] 3 10:28:21 Referral None recorded. Procedures None recorded. Surgeries None recorded. Imaging None recorded. Medication Orders polymyxin B sulfate 10,000 unit-trimet hoprim 1 mg/mL eye drops 2023 024 [id number], [address] [place], [place], [id number], 4 11:28:08 benzonatate 100 mg capsule 2022 023 [id number], [address] [place], [place], [id number], 3 11:08:51 benzonatate 100 mg capsule 2022 023 [facility], [address] [place], [place], [id number], 3 15:35:43 Patient TargetsNo targets recorded. Patient [...] Go To The Location Of Their Choice, [id number] 11/07/2022 09:02:46 11/10/1911/09/2022 rapid SARS CoV 2 Ag, QL IA, respi rator y speci men rapid SARS CoV 2 Ag, QL IA, respiratory specimen negati ve Not Available [facility] ed [address] [place] [address], [phone] 11/09/2022 11:07:07 06/21/19 25 06/21/2024 rapid flu (A+B) Flu negati ve Not Available [facility] ed [address] [place] [address], [id number] 06/21/2024 16:34:32 06/21/19 25 06/21/2024 rapid SARS CoV 2 Ag, QL IA, respi rator y speci men rapid SARS CoV 2 Ag, QL IA, respiratory specimen negati ve Not Available [facility] ed [address] [place] [address], [phone] 06/21/2024 16:34:27 Result Notes None recorded. Medical [...] Heart rate Respiratory rate Body temperature Systolic And Diastolic Provider Name and Address Organization Details Last Updated DateTime 5 97 % 97 % 71 /min 18 /min 99 [degF] 123/69 mm[Hg] Not Available Staff Ranker 5 16:29:21 Date Recorded Respiratory rate Heart rate Body temperature Oxygen saturation Oxygen saturation in Arterial blood by Pulse oximetry Systolic And Diastolic Provider Name and Address Organization Details Last Updated DateTime 4 16 /min 81 /min 99.4 [degF] 99 % 99 % 122/74 mm[Hg] Not Available Staff Ranker 4 11:15:43 Date Recorded Body temperature Respiratory rate Heart rate Body weight Oxygen saturation Oxygen saturation in Arterial blood by Pulse oximetry Systolic And Diastolic Provider Name and Address Organization Details Last Updated DateTime 3 97.8 [degF] 14 /min 66 /min 90452.8 8 g 98 % 98 % 116/66 mm[Hg] Not Available Staff Ranker 3 15:07:28 Date Recorded Respiratory rate Heart rate Oxygen saturation Oxygen saturation in Arterial blood by Pulse oximetry Body temperature Body weight Systolic And Diastolic Provider Name and Address Organization Details Last Updated DateTime 3 16 /min 80 /min 100 % 100 % 97.3 [degF] 61714 g 131/72 mm[Hg] Not Available Staff Ranker 3 11:05:08 Date Recorded Respiratory rate Heart rate Oxygen saturation Oxygen saturation in Arterial blood by Pulse oximetry Systolic And Diastolic Provider Name and Address Organization Details Last Updated DateTime 3 16 /min 74 /min 98 % 98 % 126/72 mm[Hg] Not Available Staff Ranker 3 16:10:34 Social History None recorded. Functional Status None recorded. Mental Status None recorded. Family History Nothing Reported. Medical History No medical history recorded. Gynecological HistoryNo gynecological history recorded. Obstetrics History GPAL:G 0 P 0 0 0 0 Past Encounters Encounter ID Performer Location Encounter Start Date Encounter Closed Date Diagnosis/Indication Diagnosis SNOMED-CT Code Diagnosis ICD10 Code Diagnosis Note [id number] Yajaira Soto MD Main - [facility] [address] [place] [phone] 11/06/2022 15:05:23 11/07/2022 11:44:53 Viral upper respiratory tract infection 480093950 J06.9 [id number] Sd Naranjo MD Main - [facility] [address] [place] [id number] 11/09/2022 11:05:06 11/09/2022 11:33:00 Acute viral bronchitis 250109176 J20.8 [id number] Mahi Freed MD Main - [facility] [address] [place] [id number] 01/30/2023 16:10:24 01/31/2023 12:13:23 Pain of left ankle joint [id number] M25.572 [id number] Kimmy Valdez MD Main - [facility] [address] [place] [id number] 09/13/2023 11:15:32 09/14/2023 12:17:44 Acute conjunctivitis 16309618 H10.31 advised to avoid rubbing eye/ good hand washing before and after touching eye- do not touch applicator directly to eye- advised should be seen in person for full eye exam- has ophthalmol ogy appt end of September- advised to try and move upor see pcp [id number] CHESTER GRIFFIN MD Main - [facility] [address] [place] [id number] 06/21/2024 16:19:58 06/23/2024 15:07:03 Viral upper respiratory tract infection 272207406 J06.9 Evaluation in the field was performed by my carpenter supervisor colleague, as noted above, I provided real-time [...] Phillip Member ID Guarantor Name 06/21/2024 1 [facility] - DOS ON OR AFTER 2022 - DUAL ELIGIBLE - [facility] OPTIONS AND ONE CARE (MEDICARE REPLACEMENT/AD VANTAGE - HMO) Gabriel Beck [id number] Gabriel Beck Notes Date Note Type Note Provider [...] .................. .................. .................. .................. .................. .................. ............... Band Singer Note From Rj Gamez: Pt complains of [...] with POC flu and Covid both -. [facility] contacted who prescribed 100mg Tessalon Perrls PO and requested another covid sample to be collected and brought to lab at [facility]. Medication was administered as directed and additional sample collected . Pt was educated on S/SX that would indicate 911/ED visit and was told to follow up with PCP. [facility] Lab Orders: SARS CoV 2 RNA (COVID-19), QL, satellite manager-PCR, respiratory specimen: Performed .................. .................. .................. .................. .................. .................. .................. ............... Disposition: Fulfilled Yajaira Soto MD [address] [place] [address],[address], [place], [phone], [employer] 11/06/2022 16:06:09 11/09/2022 text/html This was a supervised home visit with carpenter supervisor Carlos Ponce. [facility] Nursing Assessment: Chief Complaints: URI PMH: [...] .................. .................. .................. .................. .................. .................. ............... Band Singer Note From Carlos Ponce: Pt reports 1. 5 weeks of dry cough that seems to be improving. [facility] benzonatate which pt sts is working well. Pt has HD on M/W/, missed Mondays appt but was dialyzed yesterday. [...] worsening sx, which are reviewed with her. [facility] Lab Orders: rapid SARS CoV 2 Ag, QL IA, respiratory specimen: Performed Comment: negative .................. .................. .................. .................. .................. .................. .................. ............... Disposition: Fulfilled Sd Naranjo MD [address] [facility],[address], [place], [phone], [employer] [employer] 11/09/2022 12:25:06 01/30/2023 text/html [facility] Nursing Assessment: [...] .................. .................. .................. .................. .................. .................. ............... Band Singer Note From Carlos Ponce: Pt reports dropping [...] ............... Disposition: Fulfilled Mahi Freed MD [address] [facility],[address], [place], [address], [employer] 01/30/2023 16:12:56 09/13/2023 text/html [facility] Nurse Triage Notes (Bailee Alonso): Chief Complaints: Pain PMH: Heart Disease, CHF, Hypertension Allergies: No Known Comments: Nepalese speaking member. Triage via Senior Construction Manager. RN food writer verified name//address. Last night member developed right eye irritation. Member reports redness and itching with white/green drainage. .................. .................. .................. .................. .................. .................. .................. ............... Band Singer Note From Edwin Crow: Dispatched to the [...] ............... Disposition: Fulfilled Kimmy Valdez MD [address] [facility],[address], [place], [address], [employer] - [employer] NEHAL 09/14/2023 08:49:00 06/21/2024 text/html [facility] Nurse Triage Notes (Kishor Garsia - RN): Patient Reports: Sputum increase ; Cough Denies: [...] Failure, Hypertension PMH Reviewed at 06/20/2024 - 17: Allergies Reviewed at 06/20/2024 - : Comments: Process Maintenance Technician verified the Pt.'s name//address and phone number. [...] requested 06/20 8:29p- call to patient via Senior Construction Manager as we are at capacity for the evening. Patient aware we cannot see her this evening, she is agreeable to a visit tomorrow 06/21- Band Singer Organization Information for [employer] Legal Name: [employer]. Address: [address] [place] [address], Water Engineer: Sahil Hendricks MD CLIA No.: [id number] Band Singer POC Test Results from [employer] Rapid influenza antigen (16:30:51) Flu: - Attachments uploaded as part of this test result can be found under Documents section. Rapid COVID antigen (16:30:53) COVID: - Attachments uploaded as part of this test result can be found under Documents section. .................. .................. .................. .................. .................. .................. .................. ............... Band Singer Note From Anderson Soto: SC 12 dispatched to the address listed above for the report of a female libertarian with flu symptoms. Arrival on scene, patient [...] POC test performed and negative for all. [facility] consulted, advised patient we could give Benzonatate for cough which patient refused. Patient advised to continue drinking plenty of fluids and get plenty of rest. Red flags discussed with patient, advised to seek medical attention if condition worsens. SC12 clear. .................. .................. .................. .................. .................. .................. .................. ............... [facility] Consulted: Chester Griffin .................. .................. .................. .................. .................. .................. .................. ............... Disposition: Jade GRIFFIN MD [address] [facility],[address], [place], [phone], NEHAL LOPEZ 06/22/2024 00:25:02 OBGyn Episode No OBEpisode recorded.
== END 2024-11-25 13:00 | disposition home or self-care (01) ==
LOC: HO.MAMMO 12:59
PROVIDERS: PCP Family Medicine; Visit Provider Family Medicine
DX: Z12.31 Encounter for screening mammogram for malignant neoplasm of breast (principal)
CPT/HCPCS: 77063; 77067

== ENCOUNTER → 2024-11-25 13:30 | Outpatient (BNV) | payer OTHER, SELFPAY | PROVIDERS: PCP Family Medicine; Visit Provider Radiology Body Imaging | DX: Z12.31 Encounter for screening mammogram for malignant neoplasm of breast (principal) | CPT/HCPCS: 77063; 77067 ==

== ENCOUNTER → 2024-12-15 23:59 | Outpatient (BNV) | payer OTHER, SELFPAY ==
--- NOTE | 2024-12-17 14:39 | MHC.OFFVIS ---
Intake Visit Reasons: Remote ICD check- Biotronik Allergies NSAIDS (Non-Steroidal Anti-Inflamma Allergy (Unknown, Verified 11/13/23 11:05) Unknown COUNT INCLUDES THE [facility] Medical History (Updated 10/28/24 @ 13:37 by SHANIKA Meehan) Abdominal pain Abnormal EKG Cellulitis Anasarca Renal failure (ARF), acute on chronic Gallstones Paroxysmal atrial fibrillation Acute on chronic HFrEF (heart failure with reduced ejection fraction) ICD (implantable cardioverter-defibrillator) in place CAD (coronary artery disease) Ischemic cardiomyopathy Elevated bilirubin ESRD (end stage renal disease) on dialysis ESRD (end stage renal disease) Hyperlipidemia HTN (hypertension) Ventricular tachycardia Surgical History (Updated 10/28/24 @ 14:03 by SHANIKA Meehan) S/P cardiac pacemaker procedure H/O colonoscopy History of hysterectomy History of pubovaginal sling Hx of knee surgery Family History Father No problems noted. Mother No problems noted. 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 services: Yes (ladies attendant) Unable to assess alcohol history related to: Unknown Alcohol intake: never Patient Tobacco Use Status: Never used Tobacco service: No Current occupational status: unemployed and disabled Office Procedures Cardiac Device Check Cardiac Device Check Details: Remote ICD report generated 12/15/2024. ICD function is adequate [id number] Cardiac Interrogation, implant defibrillator w/interim Procedure code (CPT) selection complete Assessment & Plan Assessment & Plan (1) ICD (implantable cardioverter-defibrillator) in place: Comment: Biotronik single-chamber ICD placed at [facility] for sustained VT and LVEF of 30-35%. Code(s): Z95.810 - Presence of automatic (implantable) cardiac defibrillator Category: Medical Plan: See above Coding Level of Care Code Procedure Only Diagnoses ICD (implantable cardioverter-defibrillator) in place Z95.810 CPT Codes Cardiac Device Check - Cardiac Device 13: [id number] Cardiac Interrogation, implant defibrillator w/interim ([id number])
== END ==
PROVIDERS: PCP Family Medicine; Visit Provider Internal Medicine Cardiovascular Disease
DX: R00.0 Tachycardia, unspecified (principal); Z95.810 Presence of automatic (implantable) cardiac defibrillator
CPT/HCPCS: 93295

== ENCOUNTER → 2025-01-16 23:59 | Outpatient (BNV) | payer OTHER, SELFPAY ==
--- NOTE | 2025-01-20 13:27 | MHC.OFFVIS ---
Intake Visit Reasons: Remote HF monitoring- Biotronik Allergies NSAIDS (Non-Steroidal Anti-Inflamma Allergy (Unknown, Verified 11/13/23 11:05) Unknown [facility] Medical History (Updated 10/28/24 @ 13:37 by SHANIKA Meehan) Abdominal pain Abnormal EKG Cellulitis Anasarca Renal failure (ARF), acute on chronic Gallstones Paroxysmal atrial fibrillation Acute on chronic HFrEF (heart failure with reduced ejection fraction) ICD (implantable cardioverter-defibrillator) in place CAD (coronary artery disease) Ischemic cardiomyopathy Elevated bilirubin ESRD (end stage renal disease) on dialysis ESRD (end stage renal disease) Hyperlipidemia HTN (hypertension) Ventricular tachycardia Surgical History (Updated 10/28/24 @ 14:03 by SHANIKA Meehan) S/P cardiac pacemaker procedure H/O colonoscopy History of hysterectomy History of pubovaginal sling Hx of knee surgery Family History Father No problems noted. Mother No problems noted. 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 Heart failure parameters are stable [id number] Cardiac Device Interrogation, cardio physiologic monitor Procedure code (CPT) selection complete Assessment & Plan Assessment & Plan (1) ICD (implantable cardioverter-defibrillator) in place: Comment: Biotronik single-chamber ICD placed at [facility] for sustained VT and LVEF of 30-35%. Code(s): Z95.810 - Presence of automatic (implantable) cardiac defibrillator Category: Medical Plan: See above Coding Level of Care Code Procedure Only Diagnoses ICD (implantable cardioverter-defibrillator) in place Z95.810 CPT Codes Cardiac Device Check - Cardiac Device 15: [id number] Cardiac Device Interrogation, cardio physiologic monitor ([id number])
== END ==
PROVIDERS: PCP Family Medicine; Visit Provider Internal Medicine Cardiovascular Disease
DX: I47.20 Ventricular tachycardia, unspecified (principal); Z95.810 Presence of automatic (implantable) cardiac defibrillator
CPT/HCPCS: 93297

== ENCOUNTER 2025-02-02 13:31 | Outpatient (REF) | payer OTHER, SELFPAY ==
[2025-02-02 15:55] LABS: Anion Gap 10 (12-20); Blood Urea Nitrogen 17 mg/dL (9-16); Calcium 9.0 mg/dL (8.4-10.2); Carbon Dioxide 32 mmol/L (22-29); Chloride 103 mmol/L (96-108); Estimated Glomerular Filt Rate 15; Magnesium 2.0 mg/dL (1.6-2.6); Potassium 4.4 mmol/L (3.3-5.1); Sodium 141 mmol/L (135-145)
[2025-02-02 17:58] LABS: Alanine Aminotransferase 12 U/L (0-31); Albumin Level 3.4 g/dL (3.5-5.0); Alkaline Phosphatase 213 U/L (39-117); Aspartate Amino Transferase 29 U/L (5-31); Total Protein 7.4 g/dL (6.5-8.0)
== END 2025-02-02 13:32 | disposition home or self-care (01) ==
LOC: HO.LAB 13:31
PROVIDERS: PCP Family Medicine; Visit Provider Nurse Practitioner Family
DX: I13.2 Hypertensive heart and chronic kidney disease with heart failure and with stage 5 chronic kidney disease, or end stage renal disease (principal); I50.20 Unspecified systolic (congestive) heart failure; N18.6 End stage renal disease; I25.5 Ischemic cardiomyopathy; I47.19 Other supraventricular tachycardia; I25.10 Atherosclerotic heart disease of native coronary artery without angina pectoris; I48.0 Paroxysmal atrial fibrillation; E78.5 Hyperlipidemia, unspecified; R01.1 Cardiac murmur, unspecified; R94.31 Abnormal electrocardiogram [ECG] [EKG]; Z79.899 Other long term (current) drug therapy; Z79.01 Long term (current) use of anticoagulants; Z99.2 Dependence on renal dialysis
CPT/HCPCS: 36415; 80048; 80076; 83735; 84443; 93005; 99212

== ENCOUNTER 2025-02-02 13:31 | Outpatient (AMB) | payer OTHER, SELFPAY ==
--- NOTE | 2025-02-02 13:57 | A.OFFVIS_ITS ---
Vital Signs 02/02/25 13:57 02/02/25 14:00 Height 5 ft 5 ft Weight 124 lb BMI 24.2 BP 134/52 L Blood Pressure Location Lt brachial Position Sitting Pulse 76 Pulse Source Monitor Intake Visit Reasons: f/u biotronic and f/u ablation State Epidemiologist Required: Yes State Epidemiologist Language: Controlled Area Checker Name: vernell baker [id number] Allergies NSAIDS (Non-Steroidal Anti-Inflamma Allergy (Unknown, Verified 02/02/25 14:00) Unknown Medication List - Last Reconciled 02/02/25 by Antonieta Barrios NP-C acetaminophen 650 mg PO Q4H PRN amiodarone 100 mg (1/2 x 200 mg) PO DAILY apixaban (Eliquis) 2.5 mg PO BID 90 days atorvastatin 80 mg PO BEDTIME bisacodyl (Dulcolax (bisacodyl)) 10 mg (2 x 5 mg) PO BEDTIME 2 days calcium carbonate-vitamin D3 600 mg-10 mcg (400 unit) 1 tab PO DAILY carvedilol 3.125 mg PO BID cholecalciferol (vitamin D3) 25 mcg PO DAILY hydralazine 10 mg PO BID loratadine 10 mg PO Q2D magnesium oxide 400 mg PO DAILY polyethylene glycol 3350 (Miralax) 238 grams PO ONCE 1 day polymyxin B sulf-trimethoprim 10,000 unit- 1 mg/mL 1 drp ophthalmic-Right QID sevelamer carbonate 1 tab PO BID HPI HPI f/u biotronic and f/u ablation: Details: Gabriel is a 72 yo female with PMH of HTN, HLD, CAD with prior NV, Ischemic CMP, NSVT, Biotronic ICD, PAF, TIA, ESRD on dialysis who presents for follow up. Today she reports she has been doing well since her last visit 01/2024. She attends dialysis 3 times weekly. She denies any new or concerning symptoms. No chest discomfort at rest or with activity. No shortness of breath, palpitations, lightheadedness, presyncope, syncope, falls. Ambulates with a walker. She attended dialysis this morning. She admits to being mostly seden tary. Taking all meds as directed. Certified change management facilitator used. [facility] Medical History Abnormal EKG Abdominal pain Cellulitis Anasarca Renal failure (ARF), acute on chronic Gallstones Paroxysmal atrial fibrillation Acute on chronic HFrEF (heart failure with reduced ejection fraction) ICD (implantable cardioverter-defibrillator) in place CAD (coronary artery disease) Ischemic cardiomyopathy Elevated bilirubin ESRD (end stage renal disease) on dialysis ESRD (end stage renal disease) Hyperlipidemia HTN (hypertension) Ventricular tachycardia Surgical History S/P cardiac pacemaker procedure H/O colonoscopy History of hysterectomy History of pubovaginal sling Hx of knee surgery Family History Father No problems noted. Mother No problems noted. 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) Unable to assess alcohol history related to: Unknown Alcohol intake: never Patient Tobacco Use Status: Never used Tobacco service: No Current occupational status: unemployed and disabled Review of Systems Const All systems reviewed & are unremarkable except as noted in HPI and below Reports fatigue ENT Denies dizziness Card Denies chest pain, Denies chest pain at rest, Denies chest pain with activity, Denies rapid heart rate, Denies pedal edema, Denies edema, Denies leg edema, Denies lightheadedness, Denies palpitations, Denies dyspnea, Denies dyspnea on exertion and Denies orthopnea Resp Denies cough, Denies dyspnea and Denies dyspnea on exertion GI Denies hematochezia and Denies change in stool character Musc Reports abnormal gait (Uses walker), Denies limited range of motion, Denies muscle cramps, Denies muscle weakness, Denies numbness, Denies radiating pain into limb, Denies stiffness and Denies tingling Neuro Reports abnormal gait (Uses walker), Denies dizziness, Denies numbness and Denies tingling Endo Reports fatigue and Denies palpitations Physical Exam Vital Signs: Last Vital Signs Pulse 76 02/02/25 14:00 BP 134/52 L 02/02/25 14:00 BMI result Body Mass Index 24.2 Const General: cooperative, comfortable and no acute distress Orientation/consciousness: patient oriented x3 Neck Neck: Yes normal visual inspection Resp Effort & Inspection: normal respiratory effort Auscultation: clear to auscultation bilaterally, no crackles, no rales, no rhonchi and no wheezes Cardio Jugular venous distension: no JVD Rate: regular rate Rhythm: regular rhythm Heart sounds: Murmur heart sound present (Holosystolic murmur noted right sternal border) and no rubs Neuro General: patient oriented x3 Extrem General: Yes normal to inspection Psych Appearance: grossly normal Mental Status: mental status grossly normal Speech and movement: Normal speech and movement present Office Procedures Cardiac Device Check Cardiac Device Check Details: Biotronik single lead ICD interrogation today, battery 80%, VVI, low rate 40, RV threshold 0.6 volts at 0.4 millisecond, 1 episode of 11 beats of NSVT 12/01/2024, no therapies, 0% ventricular pacing [id number] Cardiac Device Check, single lead implantable defibrillator Procedure code (CPT) selection complete EKG Details: Today, read by me, normal sinus rhythm, left axis deviation, anterior infarct, prolonged QTC, 519 milliseconds, rate 76. [id number], Complete Assessment & Plan Assessment & Plan (1) Ischemic cardiomyopathy: Comment: known prior inferior inferolateral territory myocardial infarction. Code(s): I25.5 - Ischemic cardiomyopathy Category: Medical Plan: Hx of ischemic CMP. Last echo 03/20/2024 showed EF 30-35 %, grade 2 diastolic dysfunction, severe dilated left atrium moderate mitral regurgitation. EF is unchanged from her prior echo 02/2023. She has no signs of heart failure on examination. She has remote heart failure monitoring through her Biotronik device which has been stable. She is not on latasha/ arb due to ESRD and on dialysis since April 2021. Hydralazine was added last visit and she is tolerating low dose. She is on carvedilol 3.125 mg b.i.d. for neurohormonal modulation. Signs and symptoms of heart failure reviewed with her. Cardiology follow-up, 6 month, sooner if needed (2) CAD (coronary artery disease): Comment: 06/28/2011 nonobstructive CAD with cardiac catheterization showing LAD diffuse irregularity with 1st diagonal 50% stenosis. Manage medically Code(s): I25.10 - Atherosclerotic heart disease of craig coronary artery without angina pectoris Category: Medical Plan: History of nonobstructive coronary artery disease. No reports of anginal soun ding symptoms. Continue low dose carvedilol. Continue high-dose atorvastatin. She is not on aspirin as she is on Eliquis. (3) Paroxysmal atrial fibrillation: Code(s): I48.0 - Paroxysmal atrial fibrillation Category: Medical Plan: History of paroxysmal atrial fibrillation, on carvedilol and low-dose amiodarone for rate/rhythm control with no reports of heart palpitations. Device interrogation shows No AF. EKG done today showing normal sinus rhythm, prolonged QT interval, 519 milliseconds. Will have her check BMP and magnesium today. For amiodarone monitoring will check liver panel and TSH. Last CXR 09/14/23. Will update CXR. Continue carvedilol and Amiodarone. Continue Eliquis 2.5 mg bid for anticoagulation, which is appropriate for her weight and kidney function. (4) Ventricular tachycardia: Code(s): I47.2 - Ventricular tachycardia Category: Medical Plan: Device interrogation today shows an 11 beat run of NSVT occurring 12/02/2024. She has had brief NSVT runs in the past. No ICD shocks. Known to have reduced EF 30-35%. She will continue on carvedilol and amiodarone. (5) ICD (implantable cardioverter-defibrillator) in place: Comment: Biotronik single-chamber ICD placed at [facility] for sustained VT and LVEF of 30-35%. Code(s): Z95.810 - Presence of automatic (implantable) cardiac defibrillator Category: Medical Plan: Functioning normally on interrogation today. Office visit interrogation due 6 months. Continue home monitoring. (6) HTN (hypertension): Code(s): I10 - Essential (primary) hypertension Category: Medical Qualifiers: Hypertension type: primary hypertension Qualified Code(s): I10 - Essential (primary) hypertension Plan: Blood pressure goal less than 130/80. Adequately controlled at present. No med changes made. Continue hydralazine, carvedilol. (7) Hyperlipidemia: Code(s): E78.5 - Hyperlipidemia, unspecified Category: Medical Plan: Boelus LDL goal less than 70 and patient with CAD. Labs 03/04/2024 showed LDL 21. Continue high-dose atorvastatin. (8) Heart failure with reduced ejection fraction: Code(s): I50.20 - Unspecified systolic (congestive) heart failure Category: Medical Plan: History of Heart failure with reduced ejection fraction, clinically euvolemic and well compensated after dialysis session earlier today.. Currently on carvedilol and hydralazine. (9) Murmur: Code(s): R01.1 - Cardiac murmur, unspecified Category: Medical Plan: History of systolic murmur. Currently sounds holosystolic in the right sternal border. Last echo shows mild calcification of the aortic valve, no aortic sten osis or regurgitation, moderate mitral annular calcification and moderate mitral regurgitation. Will update echocardiogram. Plan Time spent on chart review, documentation, interview and assessment Orders: Orders Magnesium Today R94.31 - Abnormal electrocardiogram [ECG] [EKG] CA echo transthoracic complete Today I50.20 - Unspecified systolic (congestive) heart failure, R01.1 - Cardiac murmur, unspecified Basic Metabolic Panel Today R94.31 - Abnormal electrocardiogram [ECG] [EKG] Add Laboratory Test Today I48.0 - Paroxysmal atrial fibrillation TSH reflex Free T4 Today I48.0 - Paroxysmal atrial fibrillation Liver Panel Today I48.0 - Paroxysmal atrial fibrillation XR chest 2V Today Z79.899 - Other correction (current) drug therapy Coding Level of Care Code Est Pt Level 4 (53135) Complex EM visit Add On G2211 Diagnoses Ischemic cardiomyopathy I25.5 CAD (coronary artery disease) I25.10 Paroxysmal atrial fibrillation I48.0 Ventricular tachycardia I47.2 ICD (implantable cardioverter-defibrillator) in place Z95.810 Primary hypertension I10 Hypertension type: primary hypertension Hyperlipidemia E78.5 Heart failure with reduced ejection fraction I50.20 Murmur R01.1 CPT Codes Cardiac Device Check - Cardiac Device 4: [id number] Cardiac Device Check, single lead implantable defibrillator ([id number]) EKG - CPT: 45188-Xqxyvtioqpnasjoqz, Complete ([id number]) Time Spent (min) 34
[2025-02-02 14:00] VITALS: BP 134/52; PULSE 76; BMI 24.2
--- OUTSIDE RECORDS SUMMARY | 2025-02-02 15:58 | XMS_ITS | Encounter Summary ---
Demographics
--- OUTSIDE RECORDS SUMMARY | 2025-02-02 15:58 | XMS_ITS ---
08/11/2025 10:00 AM EDT Procedure visit [facility] [address] [place] [address] documented as of this encounter Visit Diagnoses Not on filedocumented in this encounter Care Teams Special Education Preschool Teacher Relationship Specialty Start Date End Date Morrison, Christiane Ramey MD PCP - General 03/18/19 documented as of this encounter
--- OUTSIDE RECORDS SUMMARY | 2025-02-02 15:58 | XMS_ITS | Encounter Summary ---
Author Organization [facility], Address [address] [place] [address] Phone Care Team Providers Care Intelligence Officer Name Role Phone Christiane Vernon MD Primary Care Provider Latrell oviedo Encounter Details Date Type Department Care Team (Late st Contact Info) Description 05/26/2021 Documentation Only [facility], [address] [place] [address] Phillip Small MD [address] Christiane Short MD PCP - General 03/18/19 documented as of this encounter
--- OUTSIDE RECORDS SUMMARY | 2025-02-02 15:58 | XMS_ITS | Encounter Summary ---
Author Organization [facility], Address [address] [place] [address] Phone Care Team Providers Care Chemical Laboratory Tester Name Role Phone Christiane Vernon MD Primary Care Provider Latrell oviedo Encounter Details Date Type Department Care Team (Late st Contact Info) Description
--- OUTSIDE RECORDS SUMMARY | 2025-02-02 15:58 | XMS_ITS | Encounter Summary ---
Author Organization [facility], Address [address] [place] [address] Phone Care Team Providers Care Fire Lookout Name Role Phone Christiane Vernon MD Primary Care Provider Latrell oviedo Encounter Details Date Type Department Care Team (Late Contact Info) Description 05/26/2021 Documentation Only [facility] [address] [place] [phone] Phillip Small MD [address] [place] [address] [place] [phone] Social History Tobacco Use Types Packs/Day Years Used Date Smoking Tobacco: Never Smokeless Tobacco: Never Alcohol Use Standard Drinks/Week Comments No 0 (1 standard drink = 0.6 oz pur e alcohol) Comments Unknown Sex and Gender Information Value Date Recorded Sex Assigned at Not on file Legal Sex Female 4:35 PM EST Gender Identity Not on file Sexual Orientation Not on file documented as of this encounter Plan of Treatment Upcoming Encounters Date Type Department Care Team (Late st Contact Info) Description 08/11/2025 10:00 AM EDT Procedure visit [facility] [address] [place] [phone] documented as of this encounter Visit Diagnoses Not on filedocumented in this encounter Care Teams Fire Lookout Relationship Specialty Start Date End Date Christiane Vernon MD PCP - General 03/18/19 documented as of this encounter
== END 2025-02-02 14:47 | disposition home or self-care (01) ==
LOC: HO.HCS 13:32
PROVIDERS: PCP Family Medicine; Visit Provider Nurse Practitioner Family
DX: I25.5 Ischemic cardiomyopathy (principal); I25.10 Atherosclerotic heart disease of native coronary artery without angina pectoris; I48.0 Paroxysmal atrial fibrillation; I47.20 Ventricular tachycardia, unspecified; Z95.810 Presence of automatic (implantable) cardiac defibrillator; I10 Essential (primary) hypertension; E78.5 Hyperlipidemia, unspecified; I50.20 Unspecified systolic (congestive) heart failure; R01.1 Cardiac murmur, unspecified
CPT/HCPCS: 93010; 93282; 99214; G2211

== ENCOUNTER 2025-02-12 11:08 | Outpatient (REF) | payer OTHER, SELFPAY ==
--- NOTE | ~2025-02-12 | XR_ITS ---
EXAMINATION: XR CHEST CLINICAL INFORMATION: Z79.899 - Other long distance billing operator (current) drug therapy COMPARISON: September 14, 2023 TECHNIQUE: 2 views of the chest were obtained. FINDINGS: Pacemaker generator projects over the left chest wall and there is single lead terminating in the right ventricle. Heart size is enlarged. Lungs are clear. There is no pleural effusion. Marquez B lines are visible in the right lower lateral lung. A vascular stent is present in the right axilla. XR/XR chest 2V IMPRESSION: Cardiomegaly. Mild interstitial edema. Electronically signed by: Pascual Mckee MD 02/12/2025 11:33 AM EDT
--- OUTSIDE RECORDS SUMMARY | 2025-02-12 13:04 | XMS_ITS | Encounter Summary ---
Author Organization [employer] Address [address] [place] [address] Care Team Providers Care Flame Channeler Name Role Phone Christiane Vernon MD Primary Care Provider Sanjeev Forrester MD Unavailable [phone] Lee Lanza MD Unavailable Orion Adams MD Unavailable Peacockaugust Unavailable Edwin Nielsen MD Unavailable [phone] Reason for Visit * Reason Comments Med Refill Encounter Details Date Type Department Care Team (Late st Contact Info) Description 05/29/2023 Refill [facility] [address] [place], [place] [phone] Christiane Vernon MD [address] [place], [place] [phone] Osteoporosis, unspecified osteoporosis type, unspecified pathological fracture presence Social History Tobacco Use Types Packs/Day Years Used Date Smoking Tobacco: Never Passive Smoke Exposure: Never Smokeless Tobacco: Never Housing Stability Answer Date Recorded What is your housing situation today? I have housing today, but I am worried about losing housing in the future 03/01/[address] you li ve. Do you have problems with any of the following? None of the above 03/01/2023 Food Insecurity Answer Date Recorded Within the past 12 months, y ou worried that your food would run out before you got money to buy more: Never True 03/01/2023 Within the past 12 months,th e food you bought just didn't last and you didn't have enough money to get more: Never True Transportation Answer Date Recorded In the past 12 months, has l ack of transportation kept you from medical appts, meetings, work or from getting things needed for daily living? No 03/01/2023 Utilities Answer Date Recorded In the past 12 months, has t he electric, gas, oil or water company threatened to shut off services in your home? No 03/01/2023 Depression Answer Date Recorded Patient Health Questionnaire-2 Score 0 05/04/2022 Comments Unknown Sex and Gender Information Value Date Recorded Sex Assigned at Female 03/13/2022 10:14 AM EDT Legal Sex Female 10:14 AM EDT Gender Identity Female 03/13/2022 10:14 AM EDT Sexual Orientation Straight 03/13/2022 10 :14 AM EDT documented as of this encounter Plan of Treatment Not on file documented as of this encounter Visit Diagnoses Diagnosis Osteoporosis, unspecified osteoporosis type, unspecified pathological fracture presence documented in this encounter Care Teams Flame Channeler Relationship Specialty Start Date End Date Christiane Vernon MD [address] [place] [id number] PCP - General Family Medicine 01/02/12 Sanjeev Forrester MD [address] [place] [phone] Nephrology 04/03/24 Lee Lanza MD [address] [place] [address] Cardiology 07/09/24 Orion Adams MD [address] [address] Cardiology 09/16/24August [address] [address] Gastroenterology 10/29/24 Edwin Nielsen MD [address] [place] [address] Ophthalmology 12/23/24 documented as of this encounter
--- OUTSIDE RECORDS SUMMARY | 2025-02-12 13:04 | XMS_ITS | Encounter Summary ---
Author Organization [facility], Address [address] [place] [address] Phone Care Team Providers Care Web Support Engineer Name Role Phone Mecca, Christiane Ramey MD Primary Care Provider Latrell oviedo Encounter Details Date Type Department Care Team ([facility] Contact Info) Description 02/11/2025 Orders Only [facility] [address] [place] [phone] Sanjeev Forrester MD [address] [place] [address] [place] [address] Social History Tobacco Use Types Packs/Day Years [...] Upcoming Encounters Date Type Department Care Team ([facility] Contact Info) Description 08/11/2025 10:00 AM EDT Procedure visit [facility] - [facility] Access Center [address] [place] [address] [place] [phone] documented as of this encounter Procedures Procedure Name Priority Date/Time Associated Diagnosis Comments HEMATOLOGY Routine 02/11/2025 documented in this encounter Results * (ABNORMAL) HEMATOLOGY (02/11/2025) WBC 5.01 4.80 - 10.80 1000/mcL [facility] RBC 3.16(L) 4.20 - 5.40 mill/mcL [facility] Hematocrit 31.1(L) 37.0 - 47.0 % [facility] MCV 98 80 - 100 fl [facility] MCH 30.6 27.0 - 31.0 pg [facility] MCHC 31.1 30.0 - 36.0 g/dL [facility] RDW 14.4 11.5 - 14.5 % [facility] Hemoglobin 9.7(L) 12.0 - 16.0 g/dL [facility] Hemoglobin x 3 29.1(L) 36.0 - 48.0 % [facility] Reticulocyte Hemoglobin 31.0 25.4 - 31.8 pg [facility] 02/11/2025 02/12/2025 8:4 4 AM EDT Narrative [facility] - 02/12/2025 Unless otherwise specified, test(s) performed at: [facility], [address] [place] [id number] TALENT DIRECTOR: Anoop Clinton M.D. For any questions, please call customer service at FREQUENCY:MONTHLY Resulting Agency Comment Specimen source: Blood Sanjeev Forrester MD LAB BLOOD ORDERABLES Final Re sult [facility] See order comments or contact performing lab Unknown, [place] documented in this encounter Visit Diagnoses Not on filedocumented in this encounter Care Teams Web Support Engineer Relationship Specialty Start Date End Date Christiane Vernon MD PCP - General 03/18/19 documented as of this encounter
--- OUTSIDE RECORDS SUMMARY | 2025-02-12 13:04 | XMS_ITS | Encounter Summary ---
Author Organization [facility], Address [address] [place] [address] Phone Care Team Providers Care Clinical Specialist Medical Device Name Role Phone Christiane Vernon MD Primary Care Provider Latrell oviedo Encounter Details Date Type Department Care Team (Late Contact Info) Description 05/16/2021 Documentation Only [facility] [address] [place] [phone] Phillip Small MD [address] [place] [address] [place] [phone] Social History Tobacco Use Types Packs/Day Years [...] visit [facility] [address] [place] [phone] documented as of this encounter Visit Diagnoses Not on filedocumented in this encounter Care Teams Clinical Specialist Medical Device Relationship Specialty Start Date End Date Christiane Vernon MD PCP - General 03/18/19 documented as of this encounter
--- OUTSIDE RECORDS SUMMARY | 2025-02-12 13:04 | XMS_ITS | Encounter Summary ---
Author Organization [facility] [place], Address [address] [place] [address] Phone Care Team Providers Care Call Center Nurse Name Role Phone Christiane Vernon MD Primary Care Provider Latrell oviedo Encounter Details Date Type Department Care Team (Late Contact Info) Description 05/17/2021 Documentation Only [facility] [address] [place] [phone] Phillip Small MD [address] [place] [address] [place] [phone] Social History Tobacco Use Types Packs/Day Years [...] visit [facility] [address] [place] [phone] documented as of this encounter Visit Diagnoses Not on filedocumented in this encounter Care Teams Call Center Nurse Relationship Specialty Start Date End Date Christiane Vernon MD PCP - General 03/18/19 documented as of this encounter
--- OUTSIDE RECORDS SUMMARY | 2025-02-12 13:04 | XMS_ITS | Encounter Summary ---
Author Organization [facility] [place], Address [address] [place] [address] Phone Care Team Providers Care Clinical Research Analyst Name Role Phone [place], Christiane Ramey MD Primary Care Provider U navailable Reason for Visit * Reason Comments Med Refill Encounter Details Date Type Department Care Team ([facility] Contact Info) Description 12/21/2021 Refill [facility] [address] [place] [address] Parker Hughes MD [address] [place] [address] [place] [address] Social History Tobacco Use Types [...] on file Sexual Orientation Not on file COVID-19 Exposure Response Date Recorded In the last 10 days, have yo u been in contact with someone who was confirmed or suspected to have Coronavirus/COVID-19? No / Unsure 12/20/2021 1:25 PM EDT documented as of this encounter Plan of Treatment Upcoming Encounters Date Type Department Care Team ([facility] Contact Info) Description 08/11/2025 10:00 AM EDT Procedure visit [facility] [address] [place] [address] [place] [address] documented as of this encounter Visit Diagnoses Not on filedocumented in this encounter Care Teams Clinical Research Analyst Relationship Specialty Start Date End Date Christiane Vernon MD PCP - General 03/18/19 documented as of this encounter
--- OUTSIDE RECORDS SUMMARY | 2025-02-12 13:04 | XMS_ITS | Encounter Summary ---
Author Organization [facility] [place], Address [address] [place] [address] Phone Care Team Providers Care Job Change Crew Member Name Role Phone Christiane Vernon MD Primary Care Provider Latrell oviedo Encounter Details Date Type Department Care Team (Late Contact Info) Description 05/26/2021 Documentation Only [facility] [address] [place] [phone] Phillip Small MD [address] [place] [address] [place] [phone] Social History Tobacco Use Types Packs/Day Years [...] visit [facility] Center [address] [place] [phone] documented as of this encounter Visit Diagnoses Not on filedocumented in this encounter Care Teams Job Change Crew Member Relationship Specialty Start Date End Date Christiane Vernon MD PCP - General 03/18/19 documented as of this encounter
--- OUTSIDE RECORDS SUMMARY | 2025-02-12 13:04 | XMS_ITS | Encounter Summary ---
Author Organization [facility] [place], Address [address] [place] [address] Phone Care Team Providers Care Smutter Name Role Phone Christiane Vernon MD Primary Care Provider Latrell oviedo Encounter Details Date Type Department Care Team (Late Contact Info) Description 05/16/2021 Documentation Only [facility] [address] [place] [phone] Phillip Small MD [address] [place] [address] [place] [phone] Social History Tobacco Use Types Packs/Day Years [...] visit [facility] [address] [place] [phone] documented as of this encounter Visit Diagnoses Not on filedocumented in this encounter Care Teams Smutter Relationship Specialty Start Date End Date Christiane Vernon MD PCP - General 03/18/19 documented as of this encounter
--- OUTSIDE RECORDS SUMMARY | 2025-02-12 13:04 | XMS_ITS | Encounter Summary ---
Author Organization [facility] Address [address] [place] [address] Phone Care Team Providers Care Interface Engineer Name Role Phone Christiane Vernon MD Primary Care Provider U navailable Reason for Visit * Reason Comments Med Refill Encounter Details Date Type Department Care Team (Late Contact Info) Description 07/08/2023 Refill [facility] [address] [place] [phone] Phillip Small MD [address] [place] [address] [place] [phone] Social History Tobacco Use Types Packs/Day Years [...] Encounters Date Type Department Care Team (Late Contact Info) Description 08/11/2025 10:00 AM EDT Procedure visit [facility] [address] [place] [phone] documented as of this encounter Visit Diagnoses Not on filedocumented in this encounter Care Teams Interface Engineer Relationship Specialty Start Date End Date RenoChristiane MD PCP - General 03/18/19 documented as of this encounter
--- OUTSIDE RECORDS SUMMARY | 2025-02-12 13:04 | XMS_ITS | Encounter Summary ---
Author Organization [facility] [place], Address [address] [place] [address] Phone Care Team Providers Care Timber Inspector Name Role Phone Christiane Vernon MD Primary Care Provider Latrell oviedo Encounter Details Date Type Department Care Team (Late Contact Info) Description 05/26/2021 Documentation Only [facility] [address] [place] [phone] Phillip Small MD [address] [place] [address] [place] [phone] Social History Tobacco Use Types Packs/Day Years [...] visit [facility] Center [address] [place] [phone] documented as of this encounter Visit Diagnoses Not on filedocumented in this encounter Care Teams Timber Inspector Relationship Specialty Start Date End Date Christiane Vernon MD PCP - General 03/18/19 documented as of this encounter
--- OUTSIDE RECORDS SUMMARY | 2025-02-12 13:04 | XMS_ITS | Clinical Summary ---
Author Organization [facility], Address [address] [place] [address] Phone Care Team Providers Care Weaving Machine Operator Name Role Phone Oktibbeha, Christiane Ramey MD Primary Care Provider U navailable Allergies Active Allergy Reactions Criticality Noted Date Comments Nsaids Other (see comments) Low 12/19/2021 Pt denies allergy, reports she was told not to take them d/t her kidney function. Medications atorvastatin (LIPITOR) 80 MG tablet Take 80 mg by mouth at bed time 0 Active loratadine (CLARITIN) 10 MG tablet Take 10 mg by mouth every other day 0 Active Eliquis 5 MG tablet Take 5 mg by mouth 2 (two) times a day 1 Active MAGnesium-Oxide 400 (241.3 Mg) MG tablet Take 400 mg by mouth 1 (one) time each day 1 Active sevelamer carbonate (RENVELA) 800 MG tablet Take 800 mg by mouth in the morning and 800 mg at noon and 800 mg in the evening. Take with meals. Swallow tablet whole; do not crush, break, or chew.. Active amiodarone (PACERONE) 200 MG tablet Take by mouth daily Take 1/2 tablet daily 0 Active Calcium Carb-Cholecalci ferol (Calcium-Vitami n D) 600-400 MG-UNIT tablet Take 1 tablet by mouth every night 2 Active cholecalciferol (VITAMIN D-3) 25 MCG (1000 UT) capsule Take 1 capsule by mouth in the morning. 2 Active lidocaine-prilo maynor (EMLA) cream APPLY A SMALL AMOUNT TO THE SKIN 3 TIMES A WEEK PRIOR TO DIALYSIS 2 Active carvedilol (COREG) 3.125 MG tablet 3 Active Docusate Sodium (DSS) 100 MG capsule TAKE 1 CAPSULE BY MOUTH TWICE DAILY NEEDED FOR CONSTIPATION 3 Active benzonatate (TESSALON) 200 MG capsule TAKE 1 CAPSULE BY MOUTH THREE TIMES DAILY NEEDED FOR COUGH 4 Active oseltamivir (TAMIFLU) 75 MG capsule TAKE 1 CAPSULE BY MOUTH TWICE DAILY FOR 5 DAYS 4 Active amLODIPine (NORVASC) 5 MG tablet Take 5 mg by mouth 1 (one) time each day Active omeprazole OTC (PriLOSEC OTC) 20 MG EC tablet Take 20 mg by mouth 1 (one) time each day Do not crush, chew, or split. Active hydrALAZINE 25 MG tablet Take 25 mg by mouth in the morning and 25 mg in the evening and 25 mg before bedtime. Active clotrimazole (MYCELEX) 10 MG denisa 1 lozenge 2 Active oxyCODONE (ROXICODONE) 5 MG immediate release tablet TAKE 1 TABLET BY MOUTH EVERY 8 HOURS FOR 2 DAYS NEEDED FOR PAIN. DO NOT DRIVE ON NARCOTIC MEDICATION 3 Active metoprolol tartrate (LOPRESSOR) 50 MG tablet Take 1 tablet by mouth in the morning and 1 tablet in the evening. 1 Active hydrOXYzine (ATARAX) 25 MG tablet Take 1 tablet by mouth at night if needed 4 Active aspirin (ST SIMON) 81 MG EC tablet Take 1 tablet by mouth 1 (one) time each day 1 Active dextromethorpha n-guaiFENesin (MUCINEX DM) 30-600 MG per 12 hr tablet Take 1 tablet by mouth in the morning and 1 tablet at noon and 1 tablet in the evening. 5 Active albuterol HFA (PROVENTIL HFA;VENTOLIN HFA) 108 (90 Base) MCG/ACT inhaler Inhale 2 puffs every 30 minutes as needed 5 06/27/19 26 Active Active Problems Problem Noted Date Diagnosed Date Acute cholecystitis with chronic cholecystitis 0 10/19/2023 Acute on chronic systolic heart failure 03/20/20 23 Biliary calculus 03/20/2023 Cerebrovascular accident 07/20/2022 Pacemaker status 07/20/2022 Osteoporosis 07/20/2022 History of procedure 04/27/2022 Overview (02/12/2024): Hx known prior inferior inferolateral territory myocardial infarction. LVEF was 40-45%. Subsequent admitted with chest discomfort to [facility] in LVEF was noted to be 30-35%. This was in setting of atrial fibrillation and ventricular tachycardia. She subsequently underwent biometric ICD placement 12/05/2019 for secondary prevention. Last echo 03/21/2021 shows EF 45%, basal inferior mid inferior and basal inferior lateral akinetic, mildly dilated left atrium, mild MR. Admitted 04/2022 with CHF in setting od ESRD. Last Assessment & Plan: Hx known prior inferior inferolateral territory myocardial infarction. LVEF was 40-45%. Subsequent admitted with chest discomfort to [facility] in LVEF was noted to be 30-35%. This was in setting of atrial fibrillation and ventricular tachycardia. She subsequently underwent biometric ICD placement 12/05/2019 for secondary prevention. Last echo 03/21/2021 shows EF 45%, basal inferior mid inferior and basal inferior lateral akinetic, mildly dilated left atrium, mild MR. Admitted 04/2022 with CHF in setting od ESRD. Replacing diagnoses that were inactivated after the 02/12/24 Regulatory Import Tubular adenoma 04/27/2022 Overview (07/20/2022): Colonoscopy with Dr. Parker negative 2005. Repeat on with Dr. Aguirre 08/07/2016 showed a polyp which was a tubular adenoma. Referral placed 12/2021 Last Assessment & Plan: Colonoscopy with Dr. Parker negative 2005. Repeat on with Dr. Aguirre 08/07/2016 showed a polyp which was a tubular adenoma. 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 US completed 07/26/21 showed multiple bilateral thyroid nodules with largest nodule measuring 1.2 cm and complex. Recommend short-term six-month to one-year follow-up. Ultrasound order 12/19/2021. Last Assessment & Plan: A carotid ultrasound March 2021 showed thyroid nodules and recommendation was for thyroid ultrasound. US completed 07/26/21 showed multiple bilateral thyroid nodules with largest nodule measuring 1.2 cm and complex. Recommend short-term six-month to one-year follow-up. Ultrasound order 12/19/2021. This will be due 01/2022. Dependence on renal dialysis 07/15/2021 Other ascites 05/16/2021 Atherosclerotic heart diseas e of [place] coronary artery without angina pectoris 05/15/2021 Diarrhea 05/15/2021 Shortness of breath 05/15/2021 Hypotension of hemodialysis 05/15/2021 Ischemic cardiomyopathy 05/15/2021 Paroxysmal atrial fibrillation 05/15/2021 Presence of automatic implantable cardiac defibr illator 05/15/2021 Pruritus 05/15/2021 Secondary hyperparathyroidism of renal origin Ventricular tachycardia 05/15/2021 End stage renal disease 05/12/2021 Edema 10/26/2020 Anemia in chronic kidney disease 04/22/2020 Chronic kidney disease, stage 4 (severe) 020 Iron deficiency anemia, not otherwise specified 04/22/2020 Hypertensive heart and renal disease with (congestive) heart failure 09/10/2019 Chronic nephritic syndrome 09/10/2019 Coronary arteriosclerosis 01/22/2019 Depressive disorder 01/22/2019 Diabetes mellitus 01/22/2019 Gastro-esophageal reflux disease without esophag itis 01/22/2019 Vasculitis 01/22/2019 Removal of joint prosthesis 01/22/2019 Type 2 diabetes mellitus without complication Overview (07/20/2022): Well-controlled with diet/exercise. A1c 4.4% on 12/22/2021. A1c 6.4% on 05/2019. A1c 6.3% on 10/2018. Suggesting remission Last Assessment & Plan: Well-controlled with diet/exercise. A1c 4.4% on 12/22/2021. A1c 6.4% on 05/2019. A1c 6.3% on 10/2018. Suggesting remission Old myocardial infarction 03/27/2012 Osteoarthritis 11/16/2011 Vitamin D deficiency 11/16/2011 Overview (09/11/2023): 18 beat NSVT episode 07/2023. Known to have reduced EF 30-35%. -continue on carvedilol and amiodarone - nuclear stress test aordered 08/06/23 - ICD in place and no therapies have been -seen by cardiology with LU Galan 08/06/23 Resolved Problems Problem Noted Date Diagnosed Date Resolved Date Hyperlipidemia 09/10/2019 02/15/2023 Essential hypertension 01/22/201902/15 Encounters Date Type Department Care Team Description 02/11/2025 Orders Only [facility] [address] [place] [phone] Sanjeev Forrester MD 02/06/2025 Treatment [facility] [address] [place] [phone] Aria Santiago FNP-C End stage renal disease; Dependence on renal dialysis 02/04/2025 Orders Only [facility] [address] [place] [address] Sanjeev Forrester MD 01/28/2025 Orders Only [facility] [address] [address] Sanjeev Forrester MD 01/28/2025 Treatment [facility] [address] [place] [address] Phillip Small MD End stage renal disease; Dependence on renal dialysis 01/23/2025 Treatment [facility] [address] [place] [phone] Aria Santiago FNP-C End stage renal disease; Dependence on renal dialysis 01/21/2025 Orders Only [facility] [address] [address] Sanjeev Forrester MD 01/16/2025 Treatment [facility] [address] [place] [address] Aria Santiago FNP-C End stage renal disease; Dependence on renal dialysis 01/14/2025 Orders Only [facility] [address] [address] Sanjeev Forrester MD 01/07/2025 Orders Only [facility] [address] [phone] Sanjeev Forrester MD 12/31/2024 Orders Only [facility] [address] [phone] Sanjeev Forrester MD 12/31/2024 Treatment [facility] [address] [place] [phone] Aria Santiago FNP-C End stage renal disease; Dependence on renal dialysis 12/26/2024 Treatment [facility] [address] [place] [phone] Phillip Small MD End stage renal disease; Dependence on renal dialysis 12/24/2024 Orders Only [facility] [address] [address] Sanjeev Forrester MD 12/19/2024 Treatment [facility] [address] [place] [address] Aria Santiago, SENIOR HOUSEKEEPER-C End stage renal disease; Dependence on renal dialysis 12/17/2024 Orders Only [facility] [address] [address] Sanjeev Forrester MD 12/12/2024 Treatment [facility] [address] [place] [address] Aria Santiago SENIOR HOUSEKEEPER-C End stage renal disease; Dependence on renal dialysis 12/10/2024 Orders Only [facility] [address] [address] Sanjeev Forrester MD 12/03/2024 Orders Only [facility] [address] [address] Sanjeev Forrester MD 12/03/2024 Treatment [facility] [address] [place] [address] Aria Santiago, SENIOR HOUSEKEEPER-C End stage renal disease; Dependence on renal dialysis 11/26/2024 Orders Only [facility] [address] [phone] Sanjeev Forrester MD 11/26/2024 Treatment [facility] [address] [place] [address] Aria Santiago, SENIOR HOUSEKEEPER-C End stage renal disease; Dependence on renal dialysis 11/21/2024 Treatment [facility] [address] [place] [address] Phillip Small MD End stage renal disease; Dependence on renal dialysis 11/19/2024 Orders Only [facility] [address] [place] [phone] Sanjeev Forrester MD 11/19/2024 Treatment [facility], [address] [place] [phone] Gregyfn Aria, SENIOR HOUSEKEEPER-C End stage renal disease; Dependence on renal dialysis 11/12/2024 Orders Only [facility] [address] [phone] Sanjeev Forrester MD from Last 3 Months Immunizations Immunization Administration Dates Next Due Hepatitis B 12/23/2020,11/25/2020 Influenza Split High Dose Pr eservative Free IM 05/10/2019,01/26/2016,02/11/2014 Influenza Vaccine, Quadrivalent, Adjuvanted 02/11 Family History Medical History Relation Comments Cancer Father stomach Diabetes Mother Hypertension Mother Hypertension Sibling sister/brother/1 brother Relation Status Comments Father Mother Alive Sibling Social History Tobacco Use Types Packs/Day Years Used Date Smoking Tobacco: Never Smokeless Tobacco: Never Tobacco Cessation:Counseling Given: Not Answered Alcohol Use Standard Drinks/Week Comments Never 0 (1 standard drink = 0.6 oz pur e alcohol) Comments Unknown Sex and Gender Information Value Date Recorded Sex Assigned at Not on file Legal Sex Female 4:35 PM EST Gender Identity Not on file Sexual Orientation Not on file Last Filed Vital Signs Vital Sign Reading Time Taken Comments Blood Pressure 123/72 11/04/2024 8:37 AM EDT Pulse 60 11/04/2024 8:37 AM EDT Temperature 36.7 C (98.1 F) 11/04/2024 8:37 AM EDT Respiratory Rate 14 11/04/2024 8:37 AM EDT Oxygen Saturation 95% 11/04/2024 8:37 AM EDT Inhaled Oxygen Concentration - - Weight 54.5 kg (120 lb 2.4 oz) 11/04/2024 8:37 A M EDT Height 152.4 cm (5') 11/04/2024 8:37 AM EDT Body Mass Index 23.47 11/04/2024 8:37 AM EDT Plan of Treatment Upcoming Encounters Date Type Department Care Team (Late st Contact Info) Description 08/11/2025 10:00 AM EDT Procedure visit [facility] [address] [place] [address] Health Maintenance Due Date Last Done Comments Diabetes: Ophthalmology Exam 05/24/2021 Diabetes: Pedal Pulse Checked 05/24/2021 Diabetes: Sensory Foot Exam 05/24/2021 Diabetes: Visual Foot Exam 05/24/2021 Hepatitis B Vaccine (6 of 6 - Risk Dialysis 4-dose series) 12/16/2023 12/15/2022, 11/15/2022, 10/18/2022, Additional history exists Diabetes: Hemoglobin A1C 06/27/2024 024, 05/04/2022, 03/02/2021, Additional history exists Influenza Vaccine (#1) 2025 , 02/28/2023, 02/04/2022, Additional history exists Pneumococcal Vaccine: 50+ Years Completed 01/08/2019, 08/03/2016, 12/11/2014, Additional history exists Pneumococcal Vaccine: Peds ( 0 to 5 Years) and At-Risk Patients (6 to 49 Years) Discontinued 01/08/2019, 08/03/2016, 12/11/2014, Additional history exists Procedures Procedure Name Priority Date/Time Associated Diagnosis Comments HEMATOLOGY Routine 02/11/2025 HEMATOLOGY Routine 02/04/2025 HEMATOLOGY Routine 01/28/2025 HEMATOLOGY Routine 01/21/2025 [facility] RESULTS Routine 01/14/2025 HD KINETICS Routine 01/14/2025 POST CHEMISTRY Routine 01/14/2025 CHEMISTRY Routine 01/14/2025 CHEMISTRY Routine 01/14/2025 IMMUNO CHEMISTRY Routine 01/14/2025 HEMATOLOGY Routine 01/14/2025 HEMATOLOGY Routine 01/07/2025 HEMATOLOGY Routine 12/31/2024 HEMATOLOGY Routine 12/24/2024 [facility] RESULTS Routine 12/17/2024 HD KINETICS Routine 12/17/2024 POST CHEMISTRY Routine 12/17/2024 IMMUNO CHEMISTRY Routine 12/17/2024 CHEMISTRY Routine 12/17/2024 CHEMISTRY Routine 12/17/2024 HEMATOLOGY Routine 12/17/2024 HEMATOLOGY Routine 12/10/2024 HEMATOLOGY Routine 12/03/2024 HEMATOLOGY Routine 11/26/2024 HEMATOLOGY Routine 11/19/2024 [facility] RESULTS Routine 11/12/2024 HD KINETICS Routine 11/12/2024 CHEMISTRY Routine 11/12/2024 POST CHEMISTRY Routine 11/12/2024 IMMUNO CHEMISTRY Routine 11/12/2024 CHEMISTRY Routine 11/12/2024 HEMATOLOGY Routine 11/12/2024 HEMOGLOBIN A1C Routine 03/02/2021 10:44 AM EDT from Last 3 Months or Most Recently Relevant to Health Maintenance Results * (ABNORMAL) HEMATOLOGY (02/11/2025) Only the most recent of14 resultswithin the time period is included. WBC 5.01 4.80 - 10.80 1000/mcL [facility] [...] 02/12/2025 Unless otherwise specified, test(s) performed at: [facility], [address] [place] [address] ASSISTANT PROFESSOR OF CRIMINAL JUSTICE: Anoop Clinton M.D. For any questions, please call customer service at FREQUENCY:MONTHLY Resulting Agency Comment Specimen source: Blood Sanjeev Forrester MD LAB BLOOD ORDERABLES Final Re sult Performing Organization Address City/[facility] Co de Phone Number Angel [facility]s See order comments or contact performing lab Unknown, [place] * (ABNORMAL) HD KINETICS (01/14/2025) Only the most recent of3 resultswithin the time period is included. % Urea Reduction 84(H) 65 - 80 % [facility] 01/14/2025 01/15/2025 12: 29 PM EDT Narrative Resulting Agency Comment Specimen source: Plasma Sanjeev Forrester MD LAB BLOOD ORDERABLES Final Re sult Performing Organization Address City/[facility] Co de Phone Number [facility] See order comments or contact performing lab Unknown, [place] * POST CHEMISTRY (01/14/2025) Only the most recent of3 resultswithin the time period is included. BUN Post Dialysis 8 6 - 19 mg/dL [facility] 01/14/2025 01/15/2025 12: 29 PM EDT Narrative [facility] - 01/15/2025 Unless otherwise specified, test(s) performed at: [facility], [address] [place] [id number] ASSISTANT PROFESSOR OF CRIMINAL JUSTICE: Anoop Clinton M.D. For any questions, please call customer service at FREQUENCY:MONTHLY Resulting Agency Comment Specimen source: Plasma Sanjeev Forrester MD LAB BLOOD ORDERABLES Final Re sult Performing Organization Address [facility] Co de Phone Number Angel Alerts See order comments or contact performing lab Unknown, [place] * IMMUNO CHEMISTRY (01/14/2025) Only the most recent of3 resultswithin the time period is included. Pathologist [facility] Hep B Surface Ag Negative Negative [facility] 01/14/2025 01/15/2025 10: 51 AM EDT Narrative [facility] - 01/15/2025 Unless otherwise specified, test(s) performed at: [facility], [address] [place] [id number] ASSISTANT PROFESSOR OF CRIMINAL JUSTICE: Anoop Clinton M.D. For any questions, please call customer service at FREQUENCY:MONTHLY Resulting Agency Comment Specimen source: Serum Sanjeev Forrester MD LAB BLOOD ORDERABLES Final Re sult Performing Organization Address [facility]/ZIP Co de Phone Number Angel Alerts See order comments or contact performing lab Unknown, [place] * (ABNORMAL) [facility] (01/14/2025) Only the most recent of6 resultswithin the time period is included. BUN 51(H) 6 - 19 mg/dL [facility] Creatinine 6.47(H) 0.60 - 1.30 mg/dL [facility] BUN/Creatinine Ratio 7.9(L) 10.0 - 20.0 [facility] Sodium 137 136 - 145 mEq/L [facility] Potassium 4.9 3.5 - 5.1 mEq/L [facility] Chloride 100 96 - 108 mEq/L [facility] Bicarbonate (CO2) 24 22 - 29 mEq/L [facility] Calcium 8.9 8.4 - 10.2 mg/dL [facility] Corrected Calcium 9.4 8.4 - 10.2 mg/dL [facility] Comment: Corrected Calcium is not equivalent to measured Ionized Calcium. Phosphorus 5.8(H) 2.6 - 4.5 mg/dL [facility] Calcium Phosphorus Product 52 0 - 54 [facility] Calcium Phosporus Product, Cor 55(H) 0 - 54 [facility] Alkaline Phosphatase 190(H) 35 - 104 U/L [facility] ALT (SGPT) 17 7 - 52 U/L [facility] Albumin 3.4(L) 3.5 - 5.2 g/dL [facility] Magnesium 2.1 1.6 - 2.6 mg/dL [facility] Ferritin 1,307(H) 10 - 291 ng/mL [facility] Comment: Verified by repeat analysis. Iron 130 30 - 160 mcg/dL [facility] UIBC 91(L) 155 - 355 mcg/dL [facility] TIBC 221 185 - 515 mcg/dL [facility] Iron Saturation (TSat) 59(H) 20 - 55 % [facility] 01/14/2025 01/15/2025 10: 51 AM EDT Narrative [facility] - 01/15/2025 Unless otherwise specified, test(s) performed at: [facility], [address] [place] [id number] ASSISTANT PROFESSOR OF CRIMINAL JUSTICE: Anoop Clinton M.D. For any questions, please call customer service at FREQUENCY:MONTHLY Resulting Agency Comment Specimen source: Serum us Sanjeev Forrester MD LAB BLOOD ORDERABLES Final Re sult [employer] [facility] See order comments or contact performing lab Unknown, [place] * [facility] Results (01/14/2025) Only the most recent of3 resultswithin the time period is included. eNPCR 1.03 [facility] nPCR_HD 1.09 [facility] eKt/V ([place]) 1.95 [facility] eKdrt/V 1.96 [facility] WSTDKT/V 2.8 Knowledge Center spKt/V (Daugirdas II) 2.23 Knowledge Center eKt/V Gotch 1.96 Knowledg e Center PCR 45.76 Knowledge Center spKt/V [facility] 2.27 [facility] 01/14/2025 01/14/2025 us Teddy Ordering Provider LAB BLOOD ORDERABLES Final Result [facility] Center Contact Performing lab Unknown, [place] * Hemoglobin A1c (03/02/2021 10:44 AM EDT) Hemoglobin A1C 5.6 (4.0-5.6) % [facility] Comment: MONITORING: In known diabetic patients, hemoglobin A1c targets should be discussed with health care provider. DIAGNOSTIC USE: The [place] Diabetes Association (ADA) and the World Health Organization (WHO) recommend the use of HbA1c to diagnose diabetes using a threshold of 6.5%. Patients who have an HbA1c between 5.7% and 6.4% are considered at increased risk for developing diabetes in the future. CAUTION: Falsely low HbA1c results may be observed in patients with hemolytic anemia, homozygous forms of abnormal hemoglobin (e.g. SS, CC, SC), , recent blood loss or hemoglobin F greater than 7%. Fructosamine may be used as an alternate test in these cases. REFERENCE: ADA: Standards of Medical Care in Diabetes 2020, The Journal of Clinical and Applied Research and Education Volume 43, Supplement 1 Testing performed or reported by [facility], a Service of [facility], [address] [place] [id number] Reyes Rodriguez MD, Pool Servicer [facility]# [id number] 03/02/2021 10:4 4 AM EDT 03/02/2021 10:47 AM EDT Phillip Small MD LAB BLOOD ORDERABLES Final Res ult [facility] from Last 3 Months or Most Recently Relevant to Health Maintenance Insurance [facility] Dual SNP ([id number]) [facility] Care Teams Weaving Machine Operator Relationship Specialty Start Date End Date Oktibbeha, Christiane Ramey MD PCP - General 03/18/19
--- OUTSIDE RECORDS SUMMARY | 2025-02-12 13:04 | XMS_ITS | Encounter Summary ---
Author Organization [facility], Address [address] [place] [address] Phone Care Team Providers Care Call Or Contact Centre Team Leader Name Role Phone [place], Christiane Ramey MD Primary Care Provider Latrell oviedo Encounter Details Date Type Department Care Team (Late st Contact Info) Description 02/06/2025 Treatment [facility], [address] [place] [address] Aria Santiago FNP-C [address] [place] [id number] End stage renal disease; Dependence on renal [...] Dialysis Note - Aria Santiago FNP-C - 02/06/2025 12:00 AM EDT Patient: Gabriel Beck, 1950, 74y, F Dialysis Location: [facility] Attending Combat Control: Sanjeev Forrester Service Date: 02/06/2025 Service Provider: Aria Madamas, BEATER DUMPER I met face to face with the patient today. OVERVIEW The patient presented with ESRD on dialysis Primary cause of renal failure: Recurrent and persistent hematuria with other morphologic changes LAST HOSPITALIZATION Discharge Diagnosis: K81.2 Acute cholecystitis with chronic cholecystitis R11.0 Nausea Admission Date 09/14/23 Discharge Date 09/15/23 DIALYSIS PRESCRIPTION IHD 3x Week Start date: 01/14/25 Dialyzer: FX CorAL 60 BFR: 450 DFR: Manual 500 Potassium: 2.0 Sodium: 138 EDW: 53 Duration: 4:00 Calcium: 2.50 Bicarb: 32 Rx updated on: 01/14/2025 TREATMENT ASSESSMENT BP Stand Pre 02/06/2025: 147/69 02/04/2025: 146/80 02/02/2025: 134/70 BP Sit Pre 02/06/2025: 139/72 02/04/2025: 124/61 02/02/2025: 153/89 BP Stand Post 02/06/2025: 126/68 02/04/2025: 148/72 02/02/2025: 164/92 BP Sit Post 02/06/2025: 129/67 02/04/2025: 134/66 02/02/2025: 144/72 Tx Duration 02/06/2025: 4:00 02/04/2025: 3:59 02/02/2025: 4:00 Missed Treatments 1 - last 30 days 1 - last 60 days 01/23 - recent FLUID ASSESSMENT EDW (kg) 02/06/2025: 53.0 02/04/2025: 53.0 02/02/2025: 53.0 Weight Pre (kg) 02/06/2025: 55.2 02/04/2025: 56.5 02/02/2025: 56.9 Weight Post (kg) 02/06/2025: 53.2 02/04/2025: 54.2 02/02/2025: 54.6 PWV (kg) 02/06/2025: 0.2 02/04/2025: 1.2 02/02/2025: 1.6 UF Rate (mL/kg/hr) 02/06/2025: 9.4 02/04/2025: 10.7 02/02/2025: 10.5 ADEQUACY ASSESSMENT spKt/V, URR 01/14/2025: 2.23, 84.0 12/17/2024: 2.4, 86.0 11/12/2024: 2.31, 85.0 ACCESS ASSESSMENT Access Type: AVGraft Access SubType: Synthetic - Standard (PTFE) Access Status: Active (In Use) - 11/25/2021 Access Location: Right Upper Arm Created: 11/01/2021 Flow 01/26/2025: 1644 01/21/2025: 1302 12/24/2024: 1655 ANEMIA ASSESSMENT HGB 02/04/2025: 9.9 01/28/2025: 10.3 01/21/2025: 9.5 Ferritin 01/14/2025: 1307.0 12/17/2024: 1572.0 11/12/2024: 1221.0 Mircera, IVP (mcg) 01/28/2025: 150 12/31/2024: 150 Iron Sucrose (Venofer) (mg) 11/14/2024: 50 11/07/2024: 50 BMM ASSESSMENT PTH, Intact 01/14/2025: 236.0 12/17/2024: 171.0 11/12/2024: 93.0 Calcium, Phosphorus 01/14/2025: 8.9, 5.8 12/17/2024: 9.1, 5.0 11/12/2024: 9.3, 4.9 Vitamin D (Calcitriol) Oral (mcg) 02/04/2025: 0.5 02/02/2025: 0.5 01/30/2025: 0.5 NUTRITION ASSESSMENT Potassium, Albumin 01/14/2025: 4.9, 3.4 12/17/2024: 4.7, 3.3 11/12/2024: 5.2, 3.3 eNPCR 01/14/2025: 1.03 12/17/2024: 1.18 11/12/2024: 0.86 DIAGNOSIS Chief Complaint: N18.6 End stage renal disease Comments: Patient seen and examined. VSS with no complaints to offer. S1, S2. RRR, LS CTA BL. Access patent Patient is stable. Patient data updated 02/06/2025 at 3:44 PM Signed By: Aria Santiago NP on 02/06/2025 3:44:30 PM documented in this encounter Plan of Treatment Upcoming Encounters Date Type Department Care Team (Late st Contact Info) Description 08/11/2025 10:00 AM EDT Procedure visit [facility] [address] [place] [address] documented as of this encounter Visit Diagnoses Diagnosis End stage renal disease Dependence on renal dialysis documented in this encounter Care Teams Call Or Contact Centre Team Leader Relationship Specialty Start Date End Date Christiane Vernon MD PCP - General 03/18/19 documented as of this encounter
--- OUTSIDE RECORDS SUMMARY | 2025-02-12 13:04 | XMS_ITS | Encounter Summary ---
Author Organization [employer] Address [address] [place] [address] Care Team Providers Care Automatic Line Set Up Mechanic Name Role Phone Christiane Vernon MD Primary Care Provider [phone] Sanjeev Forrester MD Unavailable [phone] Lee Lanza MD Unavailable Orion Adams MD Unavailable Peacockaugust Unavailable Edwin Nielsen MD Unavailable [phone] Reason for Visit * Reason Comments Med Refill Encounter Details Date Type Department Care Team (Late st Contact Info) Description 12/27/2023 Refill [facility] [address] [place], [place] [phone] Carlos Freedman MD [address] [place], [place] [phone] Social History Tobacco Use Types Packs/Day Years [...] the past 12 months, has t he [employer], gas, oil or water company threatened to shut off services in your home? No 10/04/2023 Depression Answer Date Recorded Patient Health Questionnaire-2 Score 0 10/04/2023 Comments Unknown Sex and Gender Information Value [...] documented as of this encounter Care Teams Automatic Line Set Up Mechanic Relationship Specialty Start Date End Date Christiane Vernon MD [address] [place] [phone] PCP - General Family Medicine 01/02/12 Sanjeev Forrester MD [address] [place] [phone] Nephrology 04/03/24 Lee Lanaz MD [address] [place] [phone] Cardiology 07/09/24 Orion Adams MD [address] [place] [phone] Cardiology 5/6/August [address]rd [place] [address] Gastroenterology 10/29/24 Edwin Nielsen MD [address] [place] [address] Ophthalmology 12/23/24 documented as of this encounter
--- OUTSIDE RECORDS SUMMARY | 2025-02-12 13:04 | XMS_ITS | Clinical Summary ---
Author Organization [employer] Address [address] [place] [address] Care Team Providers Care Manager Research And Development Name Role Phone Christiane Vernon MD Primary Care Provider [phone] Sanjeev Forrester MD Unavailable Lee Lanza MD Unavailable [phone] Orion Adams MD Unavailable August Unavailable Edwin Nielsen MD Unavailable [phone] Allergies Active Allergy Reactions Criticality Noted Date Comments Nsaids Unknown,Rash Low 10/12/2011 Other reaction(s): avoid nephrotoxic agents Pt denies allergy, reports she was told not to take them d/t her kidney function. Medications acetaminophen (Tylenol 8 Hour) 650 MG ER tablet Take 1,300 mg by mouth every 8 (eight) hours if needed. Active MAGnesium-Oxide 400 (240 Mg) MG tablet TAKE 1 TABLET BY MOUTH DAILY 01/14/20 22 Active docusate sodium (Colace) 100 MG capsule TAKE 1 CAPSULE BY MOUTH TWICE DAILY NEEDED FOR CONSTIPATION 08/18/19 23 Active apixaban (Eliquis) 2.5 MG tablet Take 1 tablet by mouth 2 times daily. Active omeprazole (PriLOSEC) [address] capsule TAKE 1 CAPSULE BY MOUTH EVERY DAY BEFORE A MEAL Active amiodarone (Pacerone) 200 MG tablet Take 0.5 tablets by mouth in the morning. Active glucose blood (FREESTYLE LITE) test stripIndication s:Type 2 diabetes mellitus without complication, with long-term current use of insulin (HCC) USE TO TEST BLOOD SUGAR TWICE A DAY 50 each 3 03/28/20 23 Active TRUEplus Lancets 33G miscIndications :Type 2 diabetes mellitus without complication, with long-term current use of insulin (HCC) USE TO TEST BLOOD SUGAR TWICE A DAY 100 each 3 03/28/20 23 Active Doxercalciferol (HECTOROL IV) 1 mcg. 05/23/19 24 Active carvedilol (Coreg) 3.125 MG tablet Take 3.125 mg by mouth 2 times daily. 05/28/19 24 Active sevelamer carbonate (Renvela) 800 MG tablet Take 1 tablet by mouth. 01/29/20 23 Active FreeStyle lancetsIndicati ons:Type 2 diabetes mellitus without complication, with long-term current use of insulin (HCC) 1 each by Other route 2 times daily. Use bid, dx type 2 diabetes 60 each 11 01/16/20 24 Active Blood Glucose Monitoring Suppl (FreeStyle Lite) w/Device kitIndications: Type 2 diabetes mellitus without complication, unspecified whether director long term care insulin use 1 each 2 times daily. Use as directed 1 kit 03/27/20 24 Active hydrOXYzine HCl (Atarax) 25 MG tabletIndicatio ns:Anxiety Take 1 tablet by mouth. 02/29/20 24 Active hydrALAZINE (Apresoline) 10 MG tabletIndicatio ns:Essential hypertension Take 10 mg by mouth 2 times daily. 03/11/20 24 Active amLODIPine (Norvasc) 5 MG tabletIndicatio ns:Essential hypertension Take 1 tablet by mouth Once per day. 09/07/19 21 Active atorvastatin (Lipitor) 80 MG tabletIndicatio ns:Dyslipidemia TAKE 1 TABLET BY MOUTH EVERY EVENING 90 tablet 3 04/30/20 24 Active albuterol 108 (90 Base) MCG/ACT inhaler Inhale 2 puffs every 4 (four) hours if needed for wheezing. 18 g 06/27/19 25 2025 Active Dextromethorpha n-guaiFENesin (Mucinex DM) 30-600 MG tablet sustained-relea se 12 hour Use 1 tab TID 28 tablet 06/27/19 25 Active cholecalciferol (Vitamin D-3) 25 MCG (1000 UT) capsule TAKE 1 CAPSULE BY MOUTH EVERY DAY 90 capsule 12/20/19 25 Active Calcium Carb-Cholecalci ferol 600-10 MG-MCG tabletIndicatio ns:Osteoporosis , unspecified osteoporosis type, unspecified pathological fracture presence TAKE 1 TABLET BY MOUTH DAILY 90 tablet 12/20/19 25 Active loratadine (Claritin) 10 MG tabletIndicatio ns:Seasonal allergies TAKE 1 TABLET BY MOUTH EVERY OTHER DAY 45 tablet 1 02/07/20 25 Active iron sucrose (Venofer) 20 MG/ML injectionIndica tions:Anemia due to chronic kidney disease, on chronic dialysis (CMS/HCC) (HCC) 50 mg per week. 12/07/19 24 2024 loratadine (Claritin) 10 MG tabletIndicatio ns:Seasonal allergies TAKE 1 TABLET BY MOUTH EVERY OTHER DAY 45 tablet 1 05/26/19 25 2024 Discontinued Active Problems Patient Care Coordination No te Formatting of this note migh t be different from the original. [facility] Piano Case And Bench Assembler: Hanane, member services number [phone], provider services line, , option 4 [employer] Agency: [employer] Problem Noted Date Diagnosed Date Colon cancer screening 03/04/2024 Overview (03/27/2024): -referral to GI(Dr. Aguirre) placed 03/04/24 -Advised pt to call for appt. 03/27/24 Assessment & Plan (03/27/2024 9:50 AM EST): -referral to GI(Dr. Aguirre) placed 03/04/24 -Advised pt to call for appt. 03/27/24 End stage renal disease 02/28/2024 Overview (03/27/2024): On hemodialysis, Mondays, Sunday's and Sunday's at [facility] with Dr. Phillip Small. Assessment & Plan (03/27/2024 9:54 AM EST): On hemodialysis, Mondays, Sunday's and s at [facility] with Dr. Phillip Small. Hypertensive heart and renal disease with (congestive) heart failure 02/28/2024 Anaphylactic shock, unspecified, initial encount er 04/23/2023 06/18/2023 Dependence on renal dialysis 04/23/202309/2023 Iron deficiency anemia, unspecified 04/23/2023 Acute on chronic HFrEF (hear t failure with reduced ejection fraction) 03/20/2023 03/20/2023 Anasarca 03/20/2023 03/20/2023 Cholelithiasis 03/20/2023 03/20/2023 Other specified health status 03/20/2023 Overview (03/27/2024): -next comprehensive annual evaluation due after 03/27/25 -followed by Dr. Edwin Nielsen of [facility] -has dentures -madan care proxy given and filed 03/27/24 Assessment & Plan (03/27/2024 9:47 AM EST): -next comprehensive annual evaluation due after 03/27/25 -followed by Dr. Edwin Nielsen of [facility] -has dentures -madan care proxy given and filed 03/27/24 Acute on chronic systolic heart failure 03/20/20 23 Overview (03/27/2024): -Reports appt. with Cardiology 03/24/24, will request notes. Assessment & Plan (03/27/2024 10:01 AM EST): -Reports appt. with Cardiology 03/24/24, will request notes. Biliary calculus 03/20/2023 Unspecified protein-calorie malnutrition 023 03/20/2023 TIA (transient ischemic attack) 07/20/2022 03/20/2023 Osteoporosis 07/20/2022 03/20/2023 Dependent on hemodialysis 05/04/2022 Assessment & Plan (05/04/2022 1:30 PM EST): SOCIAL SERVICE LIAISON Chantal but getting a new one soon. On [address] [facility] on Sunday, Sunday and Sunday Does mobilize using cane 04/27/2022 Hemorrhoids 04/27/2022 History of implantable cardi overter-defibrillator (ICD) placement 04/27/2022 Overview (10/23/2024): Hx known prior inferior inferolateral territory myocardial infarction. LVEF was 40-45%. Subsequent admitted with chest discomfort to [facility] in LVEF was noted to be 30-35%. This was in setting of atrial fibrillation and ventricular tachycardia. She subsequently underwent biometric ICD placement 12/05/2019 for secondary prevention. Last echo 03/21/2021 shows EF 45%, basal inferior mid inferior and basal inferior lateral akinetic, mildly dilated left atrium, mild MR. Admitted 04/2022 with CHF in setting od ESRD. Interrogation done with Dr. Adams 01/23/[address] Lee Lanza of [facility] 07/07/[address] Adams 10/22/24 reveiwed Assessment & Plan (05/04/2022 1:44 PM EST): Hx known prior inferior inferolateral territory myocardial infarction. LVEF was 40-45%. Subsequent admitted with chest discomfort to [facility] in LVEF was noted to be 30-35%. This was in setting of atrial fibrillation and ventricular tachycardia. She subsequently underwent biometric ICD placement 12/05/2019 for secondary prevention. Last echo 03/21/2021 shows EF 45%, basal inferior mid inferior and basal inferior lateral akinetic, mildly dilated left atrium, mild MR. Admitted 04/2022 with CHF in setting od ESRD. History of left knee replacement 04/27/2022 Overview (05/04/2022): In February of 2019 she had knee replacement hardware removed and antibiotic spacer implanted. Pt underwent L second stage revision total knee arthroplasty on 06/26/2019. Followed by Last seen by Dr. Robison 01/2020 recommending follow up 06/2020 -pt reports stopped bactrim 06/2020 after 1 year Assessment & Plan (05/04/2022 1:46 PM EST): In February of 2019 she had knee replacement hardware removed and antibiotic spacer implanted. Pt underwent L second stage revision total knee arthroplasty on 06/26/2019. Followed by Last seen by Dr. Robison 01/2020 recommending follow up 06/2020 -pt reports stopped bactrim 06/2020 after 1 year Tubular adenoma 04/27/2022 Overview (10/29/2024): Colonoscopy with Dr. Parker negative 2005. Repeat on with Dr. Aguirre 08/07/2016 showed a polyp which was a tubular adenoma. -seen by LU Meehan cardiac clearance scheduled to proceed with colonoscopy Assessment & Plan (05/04/2022 1:42 PM EST): Colonoscopy with Dr. Parker negative 2005. Repeat on with Dr. Aguirre 08/07/2016 showed a polyp which was a tubular adenoma. Referral placed 12/2021 Multinodular goiter 07/27/2021 Overview (03/20/2023): A carotid ultrasound March 2021 showed thyroid nodules and recommendation was for thyroid ultrasound. US completed 07/26/21 showed multiple bilateral thyroid nodules with largest nodule measuring 1.2 cm and complex. Recommend short-term six-month to one-year follow-up. Ultrasound order 12/19/2021. Assessment & Plan (05/04/2022 1:31 PM EST): A carotid ultrasound March 2021 showed thyroid nodules and recommendation was for thyroid ultrasound. US completed 07/26/21 showed multiple bilateral thyroid nodules with largest nodule measuring 1.2 cm and complex. Recommend short-term six-month to one-year follow-up. Ultrasound order 12/19/2021. This will be due 01/2022. Other ascites 05/16/2021 Overview (03/27/2024): New onset ascites in absence of history of liver disease. Normal coags, platlets and LFTs. Hep pannel negative 04/2022. She underwent paracentesis during hospitalization 05/12/2021 removing 5.4 L of clear yellow fluid. Culture was negative. WBC 0.143, RBC0.002, peritoneal lymph 33, peritoneal monocytes 58, peritoneal other cells 9. There is no protein or cytology. Given hx liver failure, < 500 WBC differential includes cardiac, nephrotic, carcinomatois less slikely pancreatic. No evidence of SBP. PMN, cytology and protein were not ordered on fluid. She desires peritoneal hemodialysis but needs work up for etiology and compensation prior to peritoneal HD. In addition if she is to get a kidney transplant, she would need to confirm does not have active liver disease. -will refer to IR for diagnostic and theraputic paracentcsis for total protein, serum to ascetics protein gradient, cell count and diff, culture, cytology, glucose, and LDH -we discussed low na diet Adendum 07/01/2021: Paracentesis for therapeutic and diagnosis 06/30/21 revealed Total protein 2.4 gm, albumin 0.8gm/dl, glucose 77mg/dl, LDH 102 U/L, Gram stain negative, RBC 0.002 x 10*6, WBC 0.255 x 10*3/uL(92% lymphocytes, 5% monocytes, 2% other). Albumen serum not drawn but 2.8 04/2022. CYTOLOGY is pending. Given < 500 WBC, SAAG 1.9, total protein 2.4, question of uncompensated ascites in cirrhosis. Will refer to GI. She last saw Dr. Aguirre 2016 for colonoscopy with tubular adenoma. She was referred to [facility] by urgent care and saw them on 04/[address] was ordered but not done due to hospitilaztion. She prefers to see GI [place] if possible. Cytology pending. Cardiology saw pt 06/29/2021. CT 12/2018 without liver pathology. Assessment & Plan (05/04/2022 1:45 PM EST): New onset ascites in absence of history of liver disease. Normal coags, platlets and LFTs. Hep pannel negative 04/2022. She underwent paracentesis during hospitalization 05/12/2021 removing 5.4 L of clear yellow fluid. Culture was negative. WBC 0.143, RBC0.002, peritoneal lymph 33, peritoneal monocytes 58, peritoneal other cells 9. There is no protein or cytology. Given hx liver failure, < 500 WBC differential includes cardiac, nephrotic, carcinomatois less slikely pancreatic. No evidence of SBP. PMN, cytology and protein were not ordered on fluid. She desires peritoneal hemodialysis but needs work up for etiology and compensation prior to peritoneal HD. In addition if she is to get a kidney transplant, she would need to confirm does not have active liver disease. -will refer to IR for diagnostic and theraputic paracentcsis for total protein, serum to ascetics protein gradient, cell count and diff, culture, cytology, glucose, and LDH -we discussed low na diet Adendum 07/01/2021: Paracentesis for therapeutic and diagnosis 06/30/21 revealed Total protein 2.4 gm, albumin 0.8gm/dl, glucose 77mg/dl, LDH 102 U/L, Gram stain negative, RBC 0.002 x 10*6, WBC 0.255 x 10*3/uL(92% lymphocytes, 5% monocytes, 2% other). Albumen serum not drawn but 2.8 04/2022. CYTOLOGY is pending. Given < 500 WBC, SAAG 1.9, total protein 2.4, question of uncompensated ascites in cirrhosis. Will refer to GI. She last saw Dr. Aguirre 2016 for colonoscopy with tubular adenoma. She was referred to [facility] by urgent care and saw them on 04/[address] was ordered but not done due to hospitilaztion. She prefers to see GI [place] if possible. Cytology pending. Cardiology saw pt 06/29/2021. CT 12/2018 without liver pathology. Atherosclerotic heart diseas e of [place] coronary artery without angina pectoris 05/15/2021 Ischemic cardiomyopathy 05/15/2021 Paroxysmal atrial fibrillation (CMS/HCC) 022 ICD (implantable cardioverter-defibrillator) in place 05/15/2021 Overview (02/04/2025): Hx known prior inferior inferolateral territory myocardial infarction. LVEF was 40-45%. Subsequent admitted with chest discomfort to [facility] in LVEF was noted to be 30-35%. This was in setting of atrial fibrillation and ventricular tachycardia. She subsequently underwent biometric ICD placement 12/05/2019 for secondary prevention. Echo 03/21/2021 shows EF 45%, basal inferior mid inferior and basal inferior lateral akinetic, mildly dilated left atrium, mild MR. Admitted 04/2022 with CHF in setting od ESRD. Seen by Dr. Adams for pacemaker check 12/18/24 -note from Antonieta Barrios reviewed 02/02/25 Assessment & Plan (05/04/2022 1:44 PM EST): Hx known prior inferior inferolateral territory myocardial infarction. LVEF was 40-45%. Subsequent admitted with chest discomfort to [facility] in LVEF was noted to be 30-35%. This was in setting of atrial fibrillation and ventricular tachycardia. She subsequently underwent biometric ICD placement 12/05/2019 for secondary prevention. Last echo 03/21/2021 shows EF 45%, basal inferior mid inferior and basal inferior lateral akinetic, mildly dilated left atrium, mild MR. Admitted 04/2022 with CHF in setting od ESRD. Secondary hyperparathyroidism of renal origin Ventricular tachycardia 05/15/2021 Anemia 04/22/2020 Iron deficiency anemia 04/22/2020 Hypertensive chronic kidney disease with stage 1 through stage 4 chronic kidney disease, or unspecified chronic kidney disease 01/22/2019 Essential hypertension 01/22/2019 Overview (08/14/2024): -Blood pressure is at goal -Continue lifestyle modifications -Continue current medications Gastro-esophageal reflux disease without esophag itis 01/22/2019 Gastroesophageal reflux disease without esophagi tis 01/22/2019 Hyperlipidemia 01/22/2019 Type 2 diabetes mellitus without complication Overview (08/14/2024): Diabetes is controlled. Lab Results Component Value Date HGBA1C 5.0 03/27/2024 HGBA1C 5.0 10/04/2023 HGBA1C 4.9 05/04/2022 Lab Results Component Value Date CREATININE 3.96 (H) 03/04/2024 EGFR 11 03/04/2024 LDLCHOLCAL 21 03/04/2024 -Statin therapy: -Diabetic eye exam: -Diabetic foot exam: done 03/27/24 -Continue lifestyle modifications -Continue current medications Assessment & Plan (03/27/2024 9:57 AM EST): Diabetes well-controlled with diet/exercise. A1c 4.4% on 12/22/2021. A1c 6.4% on 05/2019. A1c 6.3% on 10/2018. Suggesting remission - Lab Results Component Value Date HGBA1C 5.0 03/27/2024 HGBA1C 5.0 10/04/2023 HGBA1C 4.9 05/04/2022 - Lab Results Component Value Date CREATININE 3.96 (H) 03/04/2024 EGFR 11 03/04/2024 LDLCHOLCAL 21 03/04/2024 -Arie/Arb: -Statin therapy: -Diabetic eye exam: -Diabetic foot exam: done 03/27/24 -Continue lifestyle modifications -Continue current medications Assessment & Plan (05/04/2022 1:42 PM EST): Well-controlled with diet/exercise. A1c 4.4% on 12/22/2021. A1c 6.4% on 05/2019. A1c 6.3% on 10/2018. Suggesting remission Dyslipidemia 03/27/2012 Overview (08/14/2024): Lab Results Component Value Date CHOL 58 03/04/2024 TRIG 43 03/04/2024 HDL 29 (L) 03/04/2024 LDLCHOLCAL 21 03/04/2024 -continue lifestyle modification IgAN (IgA nephropathy) 03/27/2012 Old myocardial infarction 03/27/2012 Overview (11/30/2023): Nuclear stress test with SURAJ Galan 11/21/23 1. Myocardial perfusion imaging study shows prior infarct in the basal part of inferior/inferolateral wall. 2. Gated LVEF is 44% during stress and rest. 3. Transient ischemic dilatation not present. EKG component of the test reported separately. Osteoarthritis 11/16/2011 Vitamin D deficiency 11/16/2011 Overview (03/27/2024): 18 beat NSVT episode 07/2023. Known to have reduced EF 30-35%. -continue on carvedilol and amiodarone - nuclear stress test aordered 08/06/23 - ICD in place and no therapies have been -seen by cardiology with LU Galan 08/06/23 Resolved Problems Problem Noted Date Diagnosed Date Resolved Date Diabetes due to underlying c ondition w oth circulatory comp 02/28/2024 08/14/2024 Overview (03/27/2024): Diabetes is well-controlled with diet/exercise. A1c 4.4% on 12/22/2021. A1c 6.4% on 05/2019. A1c 6.3% on 10/2018. Suggesting remission - Lab Results Component Value Date HGBA1C 5.0 03/27/2024 HGBA1C 5.0 10/04/2023 HGBA1C 4.9 05/04/2022 - Lab Results Component Value Date CREATININE 3.96 (H) 03/04/2024 EGFR 11 03/04/2024 LDLCHOLCAL 21 03/04/2024 -Arie/Arb: -Statin therapy: -Diabetic eye exam: -Diabetic foot exam: done 03/27/24 -Continue lifestyle modifications -Continue current medications Assessment & Plan (03/27/2024 9:59 AM EST): Diabetes is well-controlled with diet/exercise. A1c 4.4% on 12/22/2021. A1c 6.4% on 05/2019. A1c 6.3% on 10/2018. Suggesting remission - Lab Results Component Value Date HGBA1C 5.0 03/27/2024 HGBA1C 5.0 10/04/2023 HGBA1C 4.9 05/04/2022 - Lab Results Component Value Date CREATININE 3.96 (H) 03/04/2024 EGFR 11 03/04/2024 LDLCHOLCAL 21 03/04/2024 -Arie/Arb: -Statin therapy: -Diabetic eye exam: -Diabetic foot exam: done 03/27/24 -Continue lifestyle modifications -Continue current medications Presence of cardiac pacemaker 07/20/2022 03/20/2023 10/04/2023 Epistaxis 05/26/2022 03/20/2023 CHF (congestive heart failure) 04/27/2022 03/20/2023 Unspecified acute appendicitis 02/18/2022 03/20/2023 Angina pectoris 08/16/2021 05/04/2022 Dependence on renal dialysis 07/15/2021 03/20/2023 Hypotension of hemodialysis 05/15/2021 03/20/2023 Shortness of breath 05/15/2021 05/04/20 Renal failure (ARF), acute on chronic 05/12/2021 03/20/2023 Edema 10/26/2020 03/20/2023 Hyperlipidemia 09/10/2019 03/20/2023 Hypertensive heart and renal disease with (congestive) heart failure 09/10/2019 03/20/2023 Diabetes mellitus 01/22/2019 03/20/2023 Vasculitis 01/22/2019 03/20/2023 Diabetes mellitus 01/22/2019 08/14/2024 Overview (03/27/2024): Diabetes is well-controlled with diet/exercise. A1c 4.4% on 12/22/2021. A1c 6.4% on 05/2019. A1c 6.3% on 10/2018. Suggesting remission. - Lab Results Component Value Date HGBA1C 5.0 03/27/2024 HGBA1C 5.0 10/04/2023 HGBA1C 4.9 05/04/2022 - Lab Results Component Value Date CREATININE 3.96 (H) 03/04/2024 EGFR 11 03/04/2024 LDLCHOLCAL 21 03/04/2024 -Arie/Arb: -Statin therapy: -Diabetic eye exam: -Diabetic foot exam: done 03/27/24 -Continue lifestyle modifications -Continue current medications Assessment & Plan (03/27/2024 9:58 AM EST): Diabetes is well-controlled with diet/exercise. A1c 4.4% on 12/22/2021. A1c 6.4% on 05/2019. A1c 6.3% on 10/2018. Suggesting remission. - Lab Results Component Value Date HGBA1C 5.0 03/27/2024 HGBA1C 5.0 10/04/2023 HGBA1C 4.9 05/04/2022 - Lab Results Component Value Date CREATININE 3.96 (H) 03/04/2024 EGFR 11 03/04/2024 LDLCHOLCAL 21 03/04/2024 -Arie/Arb: -Statin therapy: -Diabetic eye exam: -Diabetic foot exam: done 03/27/24 -Continue lifestyle modifications -Continue current medications Encounters Date Type Department Care Team Description 02/06/2025 Refill [facility] [address] [place] [id number] Christiane Vernon MD Seasonal allergies 02/02/2025 Orders Only GENERIC EXTERNAL DATA DEPARTMENT Provider, Generic External Data 12/19/2024 Refill [facility] [address] [place] [address] Madison Smith MD Osteoporosis, unspecified osteoporosis type, unspecified pathological fracture presence from Last 3 Months Immunizations Immunization Administration Dates Next Due Hep B, adult 12/23/2020, 1,09/22/2015,03/31,12/11/2014 HepB-CpG 12/15/2022, 3,10/18/2022,09/13,08/26/2021,07/25/2021,06/24/2021 INFLUENZA VACCINE QUADRIVALE NT RECOMBINANT PRESERVATIVE FREE RIV4 02/28/2023 Influenza High-dose Quadriva lent Preservative Free 05/24/2021 Influenza Quadrivalent Adjuvanted 02/27/2020 Influenza injectable quadriv alent preservative free 02/04/2022,05/09/2019,03/31/2015 Influenza, High Dose Seasona l, Preservative Free 05/10/2019,01/28/2018,01/25/2016,02/11 Influenza, IIV3, injectable 03/16/2014, 1,03/27/2011 Influenza, Recombinant, inje ctable, preservative free 02/29/2024 Influenza, Split (incl. cristel fied surface antigen) 03/15/2015,03/19/2013,03/27/2012 Influenza, trivalent, adjuvanted 03/09/2017 Moderna Covid-19 Vaccine 12+ 02/24/2022,08/06/19 21,07/08/2020 Moderna Covid-19 Vaccine 6+ Bivalent 02/24/2022 Pneumococcal Conjugate PCV 13 12/11/2014 Pneumococcal Polysaccharide PPSV23 01/08,08/03/2016,09/30/2014,05/03 TD (adult), 2 Lf tetanus tox oid, preservative free, adsorbed 01/24/2007 Tdap 03/27/2024,03/27/2012 Zoster, Recombinant 08/10/2022,10/03/2021 Zoster, live 11/20/2011 Social History Tobacco Use Types Packs/Day Years Used Date Smoking Tobacco: Never Passive Smoke Exposure: Never Smokeless Tobacco: Never Tobacco Cessation:Counseling Given: [...] Orientation Straight 03/13/2022 10 :14 AM EDT Last Filed Vital Signs Vital Sign Reading Time Taken Comments Blood Pressure 110/62 08/28/2024 1:21 PM EDT Pulse 60 08/28/2024 1:21 PM EDT Temperature 36.8 C (98.2 F) 08/28/2024 1:21 PM EDT Respiratory Rate 16 08/28/2024 1:21 PM EDT Oxygen Saturation 100% 08/28/2024 1:21 PM EDT Inhaled Oxygen Concentration - - Weight 52.9 kg (116 lb 9.6 oz) 08/28/2024 1:21 P M EDT Height 152.4 cm (5') 06/27/2024 9:47 AM EST Body Mass Index 22.77 06/27/2024 9:47 AM EST Plan of Treatment Health Maintenance Due Date Last Done Comments Eye Exam 1960 Hepatitis C Screening 1968 RSV Patients and Patients Aged 60 years or older (1 - 1-dose 75+ series) 07/31/2023 Diabetes: Hemoglobin A1C 09/24/2024 024, 10/04/2023, 05/04/2022, Additional history exists Depression Screening 10/03/2024 10/04/2023, 10/04/19 24 SDOH Screening 10/03/2024 10/04/2023 COVID-19 Vaccine ( season) 2025 02/24/2022, 02/24/2022, 08/05/2020, Additional history exists Influenza Vaccine (#1) 2025 , 02/28/2023, 02/04/2022, Additional history exists Lipid Panel 03/04/2025 03/04/2024 Alcohol/Substance Use Screening 03/27/2025 03/27/2024 Diabetes: Foot Exam 03/27/2025 03/27/2024, 03/27/2024, 03/27/2024 Tobacco Screening 08/28/2025 08/28/2024 DTaP/Tdap/Td Vaccines (3 - Td or Tdap) 03/27/2034 03/27/2024, 03/27/2012, 01/24/2007 Pneumococcal Vaccine: 50+ Years Completed 01/08/2019, 08/03/2016, 12/11/2014, Additional history exists Diabetes: Urine Protein Screening Discontinued 10/02/2019, 09/01/2019 Zoster Vaccines Completed 08/10/2022, 09/12, 11/20/2011 Hepatitis B Vaccines Completed 12/15/2022, 11/15/2022, 10/18/2022, Additional history exists HIB Vaccines Aged Out No longer eligi ble based on patient's age to complete this topic HPV Vaccines Aged Out No longer eligi ble based on patient's age to complete this topic Hepatitis A Vaccines Aged Out No long er eligible based on patient's age to complete this topic IPV Vaccines Aged Out No longer eligi ble based on patient's age to complete this topic Meningococcal B Vaccine Aged Out No l onger eligible based on patient's age to complete this topic Meningococcal Vaccine Aged Out No amelia trisha eligible based on patient's age to complete this topic RSV under 20 months Aged Out No longe r eligible based on patient's age to complete this topic Rotavirus Vaccines Aged Out No longer eligible based on patient's age to complete this topic Procedures Procedure Name Priority Date/Time Associated Diagnosis Comments XR CHEST 2 VIEWS Routine 02/12/2025 11:1 4 AM EDT TSH W/REFLEX TO FT4 Routine 02/02/2025 3 :12 PM EDT HEPATIC FUNCTION PANEL Routine 3:12 PM EDT MAGNESIUM Routine 02/02/2025 3:12 PM EDT BASIC METABOLIC PANEL Routine 02/02/2025 3:12 PM EDT BI MAMMOGRAM SCREENING TOMOSYNTHESIS BILATERAL Routine 11/25/2024 1:10 PM EDT POCT GLYCATED HEMOGLOBIN, TOTAL Routine 03/27/2024 9:43 AM EST Type 2 diabetes mellitus without complication, without long-term current use of insulin (CMS/HCC) LIPID PANEL, STANDARD Routine 03/04/2024 10:31 AM EDT Colon cancer screening ZZZ HISTORICAL MICROALBUMIN, RANDOM Routine 10/02/2019 12:01 PM EDT from Last 3 Months or Most Recently Relevant to Health Maintenance Results * XR Chest 2 Views (02/12/2025 11:14 AM EDT) Anatomical Region Laterality Modality Chest Radiographic Mali ging 02/12/2025 11:1 4 AM EDT Narrative 02/12/2025 11:35 AM EDT [address] [address] XRay Report Signed Patient: Gabriel Beck MR#: [id number] : 1950 Acct:[id number] Age/Sex: 74 / F ADM Date: 02/12/25 Loc: HO.IRISAY Attending Dr: Antonieta Barrios COMMUNITY PRODUCT SPECIALIST-C Ordering Physician: Antonieta BarriosC Date of Service: 02/12/25 Procedure(s): XR chest 2V Accession Number(s): [id number] cc: Christiane Vernon MD; Antonieta Barrios COMMUNITY PRODUCT SPECIALIST-C Reason for Exam: Z79.899 - Other halfway (current) drug therapy EXAMINATION: XR CHEST CLINICAL INFORMATION: Z79.899 - Other halfway (current) drug therapy COMPARISON: September 14, 2023 TECHNIQUE: 2 views of the chest were obtained. FINDINGS: Pacemaker generator projects over the left chest wall and there is single lead terminating in the right ventricle. Heart size is enlarged. Lungs are clear. There is no pleural effusion. Marquez B lines are visible in the right lower lateral lung. A vascular stent is present in the right axilla. XR/XR chest 2V IMPRESSION: Cardiomegaly. Mild interstitial edema. Electronically signed by: Pascual Mckee MD 02/12/2025 11:33 AM EDT Dictated By: Pascual Mckee MD Signed By: <Electronically signed by Pascual Mckee MD in OV> 02/12/25 1133 DD/ 1114 TD/TT: 02/12/25 1120 Frame And Scrap Crusher: Procedure Note Donotuseinterpreter, Image - 02/12/[address] [address] XRay Report Signed Patient: Paras Beck#: [id number] : 9Acct:[id number] Age/Sex: 74 / FADM Date: 02/12/25 Loc: [place] Attending Dr: Antonieta RUELAS Ordering Physician: Antonieta Barrios Date of Service: 02/12/25 Procedure(s): XR chest 2V Accession Number(s): [id number] cc: Christiane Vernon MD; Antonieta Barrios Reason for Exam: Z79.899 - Other halfway (current) drug therapy EXAMINATION: XR CHEST CLINICAL INFORMATION: Z79.899 - Other director long term care (current) drug therapy COMPARISON: September 14, 2023 TECHNIQUE: 2 views of the chest were obtained. FINDINGS: Pacemaker generator projects over the left chest wall and there is single lead terminating in the right ventricle. Heart size is enlarged. Lungs are clear. There is no pleural effusion. Marquez B lines are visible in the right lower lateral lung. A vascular stent is present in the right axilla. XR/XR chest 2V IMPRESSION: Cardiomegaly. Mild interstitial edema. Electronically signed by: Pascual Mckee MD 02/12/2025 11:33 AM EDT Dictated By: Pascual Mckee MD Signed By: <Electronically signed by Pascual Mckee MD in OV> 02/12/25 1133 DD/ 1114 TD/TT: 02/12/25 1120 Frame And Scrap Crusher: [facility] External Provider IMG XR PROCEDURES Edited Result - Final * TSH with Reflex to Free T4 (02/02/2025 3:12 PM EDT) TSH reflex Free T4 1.22 0.32 - 4.0 uIU/mL [facility] 02/02/2025 3:12 PM EDT 02/02/2025 3:14 PM EDT Generic External Data Provider LAB BLOOD ORDERAB LES Final Result Performing Organization Address [facility] Co de Phone Number [facility] [address] [place] [phone] * Magnesium (02/02/2025 3:12 PM EDT) Pathologist [facility] Magnesium 2.0 1.6 - 2.6 mg/dL [facility] 02/02/2025 3:12 PM EDT 02/02/2025 3:14 PM EDT us Generic External Data Provider LAB BLOOD ORDERAB LES Final Result Performing Organization Address [facility] Phone Number [facility] [address] [place] [phone] * (ABNORMAL) Hepatic Function Panel (02/02/2025 3:12 PM EDT) [facility] Bilirubin, Total 0.6 0.0 - 1.0 mg/dL [facility] Bilirubin, Direct 0.3 0.0 - 0.5 mg/dL [facility] Aspartate Amino Transferase 29 5 - 31 U/L [facility] Alanine Aminotransferase 12 0 - 31 U/L [facility] Total Protein 7.4 6.5 - 8.0 g/dL [facility] Albumin Level 3.4(L) 3.5 - 5.0 g/dL [facility] Alkaline Phosphatase 213(H) 39 - 117 U/L [facility] 02/02/2025 3:12 PM EDT 02/02/2025 3:14 PM EDT us Generic External Data Provider LAB BLOOD ORDERAB LES Final Result Performing Organization Address [facility] Co de Phone Number [facility] [address] [place] [phone] * (ABNORMAL) Basic Metabolic Panel (02/02/2025 3:12 PM EDT) [facility] Sodium 141 135 - 145 mmol/L [facility] Potassium 4.4 3.3 - 5.1 mmol/L [facility] Chloride 103 96 - 108 mmol/L [facility] Carbon Dioxide 32(H) 22 - 29 mmol/L [facility] Anion Gap 10(L) 12 - 20 [facility] Urea Nitrogen (BUN) 17(H) 9 - 16 mg/dL [facility] Creatinine, Serum 2.95(H) 0.5 - 1.4 mg/dL [facility] Estimated Glomerular Filt Rate 15 [facility] Comment:Chronic Kidney Disea se: Estimated GFR < 60 mL/min/1.83s2Geeidf Kidney Disease: Estimated GFR < 15 mL/min/1.73m2 Glucose 82 60 - 115 mg/dL [facility] Calcium 9.0 8.4 - 10.2 mg/dL [facility] 02/02/2025 3:12 PM EDT 02/02/2025 3:14 PM EDT us Generic External Data Provider LAB BLOOD ORDERAB LES Final Result [facility] [address] [place] [phone] * BI Mammogram Screening Tomosynthesis Bilateral (11/25/2024 1:10 PM EDT) Anatomical Region Laterality Modality Breast Bilateral Mammography 11/25/2024 1:10 PM EDT Narrative 12/05/2024 5:24 PM EDT [facility] [address] [place] [address] Mammography Report Signed Patient: Gabriel Beck MR#: [id number] : 1950 Acct:[id number] Age/Sex: 74 / F ADM Date: 11/25/24 Loc: HO.MAMMO Attending Dr: Christiane Vernon MD Ordering Physician: Christiane Vernon MD Results: 1N egative Date of Service: 11/25/24 Follow Up: 1 Year From Orig inal Mammogram Procedure(s): MM tomosynthesis screening BI Accession Number(s): [id number] cc: Christiane Vernon MD EXAMINATION: MM SCREENING DIGITAL BREAST TOMOSYNTHESIS, BILATERAL CLINICAL INFORMATION: Screening. Asymptomatic. COMPARISON: Comparison made to multiple prior, most recent September 06, 2023, and most remote February 16, 2016. TECHNIQUE: Digital breast tomosynthesis is performed in both the craniocaudal and mediolateral oblique views along with computer-aided detection (CAD). Synthesized 2D images are generated from the tomosynthesis. FINDINGS: BREAST COMPOSITION: The breasts are heterogeneously dense, which may obscure small masses (ACR BI-RADS breast composition Category c). RIGHT BREAST: No significant masses, suspicious calcifications or other abnormalities are seen. LEFT BREAST: Pacemaker battery limits local evaluation. No significant masses, suspicious calcifications or other abnormalities are seen. MM/MM tomosynthesis screening BI IMPRESSION: BILATERAL BREASTS: Negative, no mammographic evidence of malignancy. Normal interval follow-up is recommended in 12 months. ASSESSMENT: BI-RADS 1 - Negative RECOMMENDATION: Routine annual mammography screening. FOLLOW-UP: 1 year F/U This examination should not preclude the clinical evaluation of a suspicious palpable abnormality. This patient's information was entered into a reminder system with a target due date for their next mammogram. Electronically signed by: Jenni Esqueda MD 12/05/2024 05:21 PM EDT Dictated By: Jenni Esqueda MD Signed By: <Electronically signed by Jenni Esqueda MD in OV> 12/05/24 1721 DD/ 1310 TD/TT: 11/25/24 1340 Frame And Scrap Crusher: Procedure Note Donotuseinterpreter, Image - 12/05/2024 [facility] [address] [place] [address] [place] [address] Mammography Report Signed Patient: Paras Beck#: [id number] : 9Acct:[id number] Age/Sex: 74 / FADM Date: 11/25/24 Loc: HO.MAMMO Attending Dr: Christiane Vernon MD Ordering Physician: Christiane Vernon MDResults: 1N egative Date of Service: 11/25/24Follow Up: 1 Year From Orig inal Mammogram Procedure(s): MM tomosynthesis screening BI Accession Number(s): [id number] cc: Christiane Vernon MD EXAMINATION: MM SCREENING DIGITAL BREAST TOMOSYNTHESIS, BILATERAL CLINICAL INFORMATION: Screening. Asymptomatic. COMPARISON: Comparison made to multiple prior, most recent September 06, 2023, and most remote February 16, 2016. TECHNIQUE: Digital breast tomosynthesis is performed in both the craniocaudal and mediolateral oblique views along with computer-aided detection (CAD). Synthesized 2D images are generated from the tomosynthesis. FINDINGS: BREAST COMPOSITION: The breasts are heterogeneously dense, which may obscure small masses (ACR BI-RADS breast composition Category c). RIGHT BREAST: No significant masses, suspicious calcifications or other abnormalities are seen. LEFT BREAST: Pacemaker battery limits local evaluation. No significant masses, suspicious calcifications or other abnormalities are seen. MM/MM tomosynthesis screening BI IMPRESSION: BILATERAL BREASTS: Negative, no mammographic evidence of malignancy. Normal interval follow-up is recommended in 12 months. ASSESSMENT: BI-RADS 1 - Negative RECOMMENDATION: Routine annual mammography screening. FOLLOW-UP: 1 year F/U This examination should not preclude the clinical evaluation of a suspicious palpable abnormality. This patient's information was entered into a reminder system with a target due date for their next mammogram. Electronically signed by: Jenni Esqueda MD 12/05/2024 05:21 PM EDT Dictated By: Jenni Esqueda MD Signed By: <Electronically signed by Jenni Esqueda MD in OV> 12/05/24 1721 DD/ 1310 TD/TT: 11/25/24 1340 Frame And Scrap Crusher: Christiane Vernon MD IMG BI PROCEDURES Edited R esult - Final * POCT HGB A1C (03/27/2024 9:43 AM EST) Hemoglobin A1C 5.0 4.0 - 6.0 % QC Media Lot # [id number] Lot# Expiration Date [id number] Blood 03/27/2024 9:43 AM EST Christiane Vernon MD POINT OF CARE TEST ENTER/E DIT ORDERABLES Final Result * (ABNORMAL) Lipid Panel, Standard (03/04/2024 10:31 AM EDT) Triglycerides 43 <150 mg/dL [facility] Comment:Desirable Triglyceri de: less than 150 mg/dLBorderline High Triglyceride 150-199 mg/dLHigh Triglyceride: 200-499 mg/dLVery High Triglyceride: greater than or equal to 5OO mg/dL Cholesterol 58 <200 mg/dL [facility] Comment:Desirable Cholestero l: less than 200 mg/dLBorderline High Cholesterol: 200-239 mg/dLHigh Cholesterol: greater than 239 mg/dL LDL Cholesterol Calculated 21 <100 mg/dL [facility] Comment:Desirable LDL: less than 100 mg/dLNear Optimal/Above Optimal LDL: 110- 129 mg/dLBorderline High LDL: 130-159 mg/dLHigh LDL: 160-189 mg/dLVery High LDL: greater than or equal to 190 mg/dL HDL Cholesterol 29(L) >40 mg/dL [facility] Comment:Desirable HDL: great er than 40 mg/dL Note: This HDL assay may give artificially low results in patients with liver disease. 03/04/2024 10:3 1 AM EDT 03/04/2024 10:32 AM EDT us Generic External Data Provider LAB BLOOD ORDERAB LES Final Result [facility] [address] [place] [phone] * MICROALBUMIN, RANDOM (10/02/2019 12:01 PM EDT) CREATININE, RANDOM URINE 82.20 MG/DL [facility] MICALB/CRE RATIO RANDOM URINE 1447.6 ug/mg cr [facility] Comment: Albumin/Creatinine Ratio Reference Ranges: Normal: < 30 ug/mg creatinine Microalbuminuria: 30 - 300 ug/mg creatinine Clinical Albuminuria: > 300 ug/mg creatinine MICROALBUMIN, RANDOM URINE 1190.0 MG/L [facility] 10/02/2019 12:0 1 PM EDT us Historical Provider HISTORICAL/NON ORDERABLE LABS Final Result [facility] [address] from Last 3 Months or Most Recently Relevant to Health Maintenance Insurance [facility] [employer]FW[facility] OPTIONS (O D-SNP) Advance Directives Documents on File Type Date Recorded 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 Production Supervisor Expl anation Advance Directives and Living Will 03/28/2024 11:09 AM Health Care Proxy Care Teams Manager Research And Development Relationship Specialty Start Date End Date Trenton, Christiane, MD [address] [place] [address] PCP - General Family Medicine 01/02/12 Sanjeev Forrester MD [address] [place] [phone] Nephrology 04/03/24 Lee Lanza MD [address] [place] [address] Cardiology 07/09/24 Orion Adams MD [address] [place] [phone] Cardiology 09/16/24August [address] [place] [phone] Gastroenterology 10/29/24 Edwin Nielsen MD [address] [facility] [address] [place] [address] Ophthalmology 12/23/24
--- OUTSIDE RECORDS SUMMARY | 2025-02-12 13:04 | XMS_ITS | Encounter Summary ---
Author Organization [facility] Address [address] [place] [address] Phone Care Team Providers Care Frame Tender Name Role Phone Christiane Vernon MD Primary Care Provider U navailable Reason for Visit * Reason Comments Med Refill Encounter Details Date Type Department Care Team (Late Contact Info) Description 12/27/2023 Refill [facility] [address] [place] [phone] Phillip Small MD [address] [place] [address] [place] [phone] Social History Tobacco Use Types Packs/Day Years [...] visit [facility] [address] [place] [phone] documented as of this encounter Visit Diagnoses Not on filedocumented in this encounter Care Teams Frame Tender Relationship Specialty Start Date End Date GoshenChristiane MD PCP - General 03/18/19 documented as of this encounter
--- OUTSIDE RECORDS SUMMARY | 2025-02-12 13:04 | XMS_ITS | Encounter Summary ---
Author Organization [facility] [place], Address [address] [place] [address] Phone Care Team Providers Care Family Services Coordinator Name Role Phone Christiane Vernon MD Primary Care Provider U navailable Reason for Visit * Reason Comments Med Refill Encounter Details Date Type Department Care Team (Late Contact Info) Description 11/19/2019 Refill [facility] [address] [place] [phone] Kasi Kilpatrick MD Social History Tobacco Use Types Packs/Day Years Used Date Smoking Tobacco: Never Alcohol Use Standard Drinks/Week Comments [...] visit [facility] [address] [place] [phone] documented as of this encounter Visit Diagnoses Not on filedocumented in this encounter Care Teams Family Services Coordinator Relationship Specialty Start Date End Date Christiane Vernon MD PCP - General 03/18/19 documented as of this encounter
--- OUTSIDE RECORDS SUMMARY | 2025-02-12 13:04 | XMS_ITS | Encounter Summary ---
Author Organization [employer] Address [address] [facility] 7t [place] [address] Care Team Providers Care Senior Facilities Manager Name Role Phone Christiane Vernon MD Primary Care Provider [phone] Sanjeev Forrester MD Unavailable Lee Lanza MD Unavailable [phone] Orion Adams MD Unavailable PeacockAugust Unavailable Edwin Nielsen MD Unavailable [phone] Reason for Visit * Reason Comments Med Refill Encounter Details Date Type Department Care Team (Late st Contact Info) Description 07/02/2024 Refill [facility] [address] [place] [address] Mariya Espinal MD [address] [place], [place] [phone] Social History Tobacco Use Types Packs/Day Years [...] Time PHQ-9 Depression Total Score: 0 10/04/19 24 9:54 AM EDT documented as of this encounter Care Teams Senior Facilities Manager Relationship Specialty Start Date End Date Christiane Vernon MD [address] [place] [phone] PCP - General Family Medicine 01/02/12 Sanjeev Forrester MD [address] [place] [phone] Nephrology 04/03/24 Lee Lanza MD [address] [place] [address] [address] [place] [address] Cardiology 07/09/24 Orion Adams MD [address] 3rd Floor [place] [address] Cardiology 09/16/24August [address] 3rd Floor [place] [address] Gastroenterology 10/29/24 Edwin Nielsen MD [address] [place] [address] Ophthalmology 12/23/24 documented as of this encounter
--- OUTSIDE RECORDS SUMMARY | 2025-02-12 13:04 | XMS_ITS | Encounter Summary ---
Author Organization [facility] [place], Address [address] [place] [address] Phone Care Team Providers Care Ingot Buggy Operator Name Role Phone Christiane Vernon MD Primary Care Provider Latrell oviedo Encounter Details Date Type Department Care Team (Late Contact Info) Description 05/26/2021 Documentation Only [facility] [address] [place] [phone] Phillip Small MD [address] [place] [address] [place] [phone] Social History Tobacco Use Types Packs/Day Years [...] visit [facility] Center [address] [facility] [place] [phone] documented as of this encounter Visit Diagnoses Not on filedocumented in this encounter Care Teams Ingot Buggy Operator Relationship Specialty Start Date End Date Christiane Vernon MD PCP - General 03/18/19 documented as of this encounter
--- OUTSIDE RECORDS SUMMARY | 2025-02-12 13:04 | XMS_ITS | Encounter Summary ---
Author Organization [facility] [place], Address [address] [place] [address] Phone Care Team Providers Care Biometrics Experimentalist Name Role Phone Christiane Vernon MD Primary Care Provider Latrell oviedo Encounter Details Date Type Department Care Team (Late Contact Info) Description 05/26/2021 Documentation Only [facility] [address] [place] [phone] Phillip Small MD [address] [place] [address] [place] [phone] Social History Tobacco Use Types Packs/Day Years [...] [facility] [address] [place] [phone] documented as of this encounter Visit Diagnoses Not on filedocumented in this encounter Care Teams Biometrics Experimentalist Relationship Specialty Start Date End Date Christiane Vernon MD PCP - General 03/18/19 documented as of this encounter
--- OUTSIDE RECORDS SUMMARY | 2025-02-12 13:04 | XMS_ITS | Encounter Summary ---
Author Organization [facility] [place], Address [address] [place] [address] Phone Care Team Providers Care Coppersmith Helper Name Role Phone hCristiane Vernon MD Primary Care Provider Latrell oviedo Encounter Details Date Type Department Care Team (Late Contact Info) Description 05/26/2021 Documentation Only [facility] [address] [place] [phone] Phillip Small MD [address] [place] [address] [place] [phone] Social History Tobacco Use Types Packs/Day Years [...] visit [facility] [address] [place] [phone] documented as of this encounter Visit Diagnoses Not on filedocumented in this encounter Care Teams Coppersmith Helper Relationship Specialty Start Date End Date Christiane Vernon MD PCP - General 03/18/19 documented as of this encounter
--- OUTSIDE RECORDS SUMMARY | 2025-02-12 13:04 | XMS_ITS | Encounter Summary ---
Author Organization [facility] [place], Address [address] [place] [address] Phone Care Team Providers Care Photo Lab Technician Name Role Phone Christiane Vernon MD Primary Care Provider Latrell oviedo Encounter Details Date Type Department Care Team (Late Contact Info) Description 05/26/2021 Documentation Only [facility] [address] [place] [phone] Phillip Small MD [address] [place] [address] [place] [phone] Social History Tobacco Use Types Packs/Day Years [...] visit [facility] [address] [place] [place] [phone] documented as of this encounter Visit Diagnoses Not on filedocumented in this encounter Care Teams Photo Lab Technician Relationship Specialty Start Date End Date Christiane Vernon MD PCP - General 03/18/19 documented as of this encounter
== END 2025-02-12 11:09 | disposition home or self-care (01) ==
LOC: HO.XRAY 11:08
PROVIDERS: PCP Family Medicine; Visit Provider Nurse Practitioner Family
DX: Z79.899 Other long term (current) drug therapy (principal)
CPT/HCPCS: 71046

== ENCOUNTER → 2025-02-12 11:14 | Outpatient (BNV) | payer OTHER, SELFPAY | PROVIDERS: PCP Family Medicine; Visit Provider Radiology Diagnostic Radiology | DX: I51.7 Cardiomegaly (principal) | CPT/HCPCS: 71046 ==

== ENCOUNTER → 2025-02-13 23:59 | Outpatient (BNV) | payer OTHER, SELFPAY ==
--- NOTE | 2025-02-16 12:46 | A.OFFVIS_ITS ---
Intake Visit Reasons: Remote ICD check- Biotronik Allergies NSAIDS (Non-Steroidal Anti-Inflamma Allergy (Unknown, Verified 02/02/25 14:00) Unknown PFSH Medical History Abnormal EKG Abdominal pain Cellulitis Anasarca Renal failure (ARF), acute on chronic Gallstones Paroxysmal atrial fibrillation Acute on chronic HFrEF (heart failure with reduced ejection fraction) ICD (implantable cardioverter-defibrillator) in place CAD (coronary artery disease) Ischemic cardiomyopathy Elevated bilirubin ESRD (end stage renal disease) on dialysis ESRD (end stage renal disease) Hyperlipidemia HTN (hypertension) Ventricular tachycardia Surgical History S/P cardiac pacemaker procedure H/O colonoscopy History of hysterectomy History of pubovaginal sling Hx of knee surgery Family History Father No problems noted. Mother No problems noted. 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 ICD function is adequate. Episodes of nonsustained ventricular tachycardia noted [id number] Cardiac Interrogation, implant defibrillator w/interim Procedure code (CPT) selection complete Assessment & Plan Assessment & Plan (1) ICD (implantable cardioverter-defibrillator) in place: Comment: Biotronik single-chamber ICD placed at [facility] for sustained VT and LVEF of 30-35%. Code(s): Z95.810 - Presence of automatic (implantable) cardiac defibrillator Category: Medical Plan: See above Coding Level of Care Code Procedure Only Diagnoses ICD (implantable cardioverter-defibrillator) in place Z95.810 CPT Codes Cardiac Device Check - Cardiac Device 13: [id number] Cardiac Interrogation, implant defibrillator w/interim ([id number])
== END ==
PROVIDERS: PCP Family Medicine; Visit Provider Internal Medicine Cardiovascular Disease
DX: I47.20 Ventricular tachycardia, unspecified (principal); Z95.810 Presence of automatic (implantable) cardiac defibrillator
CPT/HCPCS: 93295

== ENCOUNTER → 2025-03-03 23:59 | Outpatient (BNV) | payer OTHER, SELFPAY ==
--- NOTE | 2025-03-04 16:15 | A.OFFVIS_ITS ---
Intake Visit Reasons: Remote HF monitoring- Biotronik Allergies NSAIDS (Non-Steroidal Anti-Inflamma Allergy (Unknown, Verified 02/02/25 14:00) Unknown PFSH Medical History Abnormal EKG Abdominal pain Cellulitis Anasarca Renal failure (ARF), acute on chronic Gallstones Paroxysmal atrial fibrillation Acute on chronic HFrEF (heart failure with reduced ejection fraction) ICD (implantable cardioverter-defibrillator) in place CAD (coronary artery disease) Ischemic cardiomyopathy Elevated bilirubin ESRD (end stage renal disease) on dialysis ESRD (end stage renal disease) Hyperlipidemia HTN (hypertension) Ventricular tachycardia Surgical History S/P cardiac pacemaker procedure H/O colonoscopy History of hysterectomy History of pubovaginal sling Hx of knee surgery Family History Father No problems noted. Mother No problems noted. 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 Heart failure parameters are stable [id number] Cardiac Device Interrogation, cardio physiologic monitor Procedure code (CPT) selection complete Assessment & Plan Assessment & Plan (1) ICD (implantable cardioverter-defibrillator) in place: Comment: Biotronik single-chamber ICD placed at [facility] for sustained VT and LVEF of 30-35%. Code(s): Z95.810 - Presence of automatic (implantable) cardiac defibrillator Category: Medical Plan: See above Coding Level of Care Code Procedure Only Diagnoses ICD (implantable cardioverter-defibrillator) in place Z95.810 CPT Codes Cardiac Device Check - Cardiac Device 15: [id number] Cardiac Device Interrogation, cardio physiologic monitor ([id number])
== END ==
PROVIDERS: PCP Family Medicine; Visit Provider Internal Medicine Cardiovascular Disease
DX: I47.29 Other ventricular tachycardia (principal); Z95.810 Presence of automatic (implantable) cardiac defibrillator
CPT/HCPCS: 93297

== ENCOUNTER → 2025-03-05 12:43 | Outpatient (REF) | payer OTHER, SELFPAY ==
--- NOTE | 2025-03-05 12:46 | CA_ITS ---
Transthoracic Echocardiogram Patient (Last, First, Middle): Gabriel Beck, Gender: F Date of : 1950 Age: 74 Procedure Date: 03/05/2025 Procedure Type: Transthoracic Echocardiogram Location: OP Height: 152.4 cm Weight: 56.25 kg BSA: 1.52 m2 Heart Rate: bpm BP: 140 / 68 mmHg Galley Cook: TO Referring MD: Antonieta Barrios FIRE SERVICES PLUMBER-Destiney Assembler Filters: Orion Adams MD Symptoms: R01.1 - Cardiac murmur, unspecified Study Quality: Adequate w contrast ECG Rhythm: Sinus Conclusions: - 1. Moderately dilated left ventricle with moderately reduced LV ejection fraction of 35-40% with grade 3 diastolic dysfunction 2. Severely dilated left atrium 3. Possible early mild aortic stenosis 4. Calcific mitral valve changes noted with moderate to severe mitral regurgitation 5. Upper limits of normal RV systolic pressure 6. Mildly dilated ascending aorta 7. No gross pericardial effusion Findings Procedure Information Contrast agent, definity, is being given per protocol without apparent complications. Left Ventricle Moderately increased left ventricular cavity size. There is normal left ventricular wall thickness. The left ventricular systolic function is moderately decreased. The visually estimated ejection fraction is between 35 40%. Spectral Doppler is indicative of a restrictive filling pattern. E/E prime ratio is >15, consistent with elevated filling pressures. Evidence suggests grade III (severe) diastolic dysfunction. Right Ventricle Normal right ventricular cavity size and systolic function. There is an ICD wire seen in the right ventricle. Atria The left atrium is severely dilated. There is no evidence of interatrial shunt. The right atrium is mildly dilated. Aortic Valve There is no aortic valve regurgitation. Mitral Valve There is mild anterior and posterior mitral leaflet thickening. There is mild anterior and mild posterior mitral annular calcification. There is moderate mitral valve regurgitation. There is no mitral valve stenosis. Pulmonic Valve The pulmonic valve is likely normal. Tricuspid Valve Normal tricuspid valve structure. There is mild to moderate tricuspid valve regurgitation. Normal right atrial pressure. There is no evidence of pulmonary hypertension. Great Vessels The pulmonary artery was not well visualized. There is mild dilatation of the ascending aorta measuring 3.70 cm. Small plaque is seen in the sino tubular ridge. Venous The inferior vena cava is normal in size and collapses greater than 50% with inspiration. Pericardium/Pleural There is no evidence of pericardial effusion. Prior Study Comparison Changes noted compared to prior study dated: 03/20/2024. LV ejection fraction has marginally improved Measurements 2D Linear Measurements IVSd: 1.07 0.6-0.9/0.6-1.0 cm LVIDd: 6.69 3.9-5.3/4.2-5.9 cm LVIDd Index: 4.40 2.4-3.2/2.2-3.1 cm/m2 LVIDs: 5.41 2.0-3.6 cm LVPWd: 1.06 0.7-1.1 cm LA Diam: 4.80 2.7-3.8/3.0-4.0 cm LAIDs Index: 3.16 1.5-2.3 cm/m2 LV Mass: 402.18 67-162/88-224 g LV Mass Index: 264.59 43-95/49-115 g/m2 LVOT Diam: 2.00 3.0+(-)1.3 cm 2D Systolic Function EF 4C: 39.70 >55% EF 2C: 37.30 >55% EF BiP: 38.20 >55% Mitral Valve MV VTI: 0.44 MV Pk Ze: 1.61 MV Mn Ze: 0.99 MV Pk Grad: 10.00 MV Mn Grad: 4.00 MV Pk E: 1.30 MV PK A: 0.96 MV Decel Time: 226.00 E/A: 1.40 E'Lateral: 5.66 E'Medial: 3.92 E/E' Med: 33.20 E/E' Lat: 23.00 PHT: 66.00 MVA PHT: 3.33 MVA Continuity: 1.21 Decel [place]: 5.77 Aortic Valve AoV Pk Ze: 1.49 AoV Mn Ze: 1.11 AoV VTI: 0.29 AoV Pk Grad: 9.00 Aov Mn Grad: 5.00 GAGE Cont.VTI: 1.83 LVOT LVOT Pk Ze: 0.93 LVOT Mn Ze: 0.56 LVOT VTI: 0.17 LVOT Pk Grad: 3.00 LVOT Mn Grad: 1.00 LVOT Diam: 2.00 LVOT Area: 3.14 Diastolic Function MV Pk E: 1.30 MV Pk A: 0.96 E/A: 1.40 E'Medial: 3.92 E/E' Med: 33.20 E' Laterial: 5.66 E/E' Lat: 23.00 Right Ventricle TAPSE (mm): 17.90 TVS' Ze: 10.60 Tricuspid Valve TR Pk Ze: 3.00 TR Pk Grad: 36.00 RA Press: 3.00 RVSP: 39.00 Great Vessels Aorta Sinus of Valsalva: 3.25 2.0-3.5 cm Ao Asc: 3.70 2.1-3.4 cm Ao Arch: 2.80 Pulmonary Valve MI Pk Ze: 2.69 Updated in Other Vendor System with Status of Final Orion Adams MD electronically signed on 03/06/2025 1:12:44 PM with status of Final
--- OUTSIDE RECORDS SUMMARY | 2025-03-05 15:49 | XMS_ITS | Encounter Summary ---
Author Organization [facility], Address [address] [place] [address] Phone Care Team Providers Care Country Singer Name Role Phone Christiane Vernon MD Primary Care Provider Latrell oviedo Encounter Details Date Type Department Care Team (Late Contact Info) Description 05/26/2021 Documentation Only [facility] [address] [place] [phone] Phillip Small MD [address] [place] [address] [place] [phone] Social History Tobacco Use Types Packs/Day Years [...] visit [facility] [address] [place] [phone] documented as of this encounter Visit Diagnoses Not on filedocumented in this encounter Care Teams Country Singer Relationship Specialty Start Date End Date Christiane Vernon MD PCP - General 03/18/19 documented as of this encounter
--- OUTSIDE RECORDS SUMMARY | 2025-03-05 15:49 | XMS_ITS | Encounter Summary ---
Author Organization [facility] [place], Address [address] [place] [address] Phone Care Team Providers Care Wooden Furniture Polisher Name Role Phone Christiane Vernon MD Primary Care Provider Latrell oviedo Encounter Details Date Type Department Care Team (Late Contact Info) Description 05/16/2021 Documentation Only [facility] [address] [place] [phone] Phillip Small MD [address] [place] [address] [place] [phone] Social History Tobacco Use Types Packs/Day Years [...] visit [facility] [address] [place] [phone] documented as of this encounter Visit Diagnoses Not on filedocumented in this encounter Care Teams Wooden Furniture Polisher Relationship Specialty Start Date End Date Christiane Vernon MD PCP - General 03/18/19 documented as of this encounter
--- OUTSIDE RECORDS SUMMARY | 2025-03-05 15:49 | XMS_ITS | Encounter Summary ---
Author Organization [facility] [place], Address [address] [place] [address] Phone Care Team Providers Care Engineering Geologist Name Role Phone Christiane Vernon MD Primary Care Provider Latrell oviedo Encounter Details Date Type Department Care Team (Late Contact Info) Description 05/26/2021 Documentation Only [facility] [address] [place] [phone] Phillip Small MD [address] [place] [address] [place] [phone] Social History Tobacco Use Types Packs/Day Years [...] visit [facility] [address] [place] [phone] documented as of this encounter Visit Diagnoses Not on filedocumented in this encounter Care Teams Engineering Geologist Relationship Specialty Start Date End Date Christiane Vernon MD PCP - General 03/18/19 documented as of this encounter
--- OUTSIDE RECORDS SUMMARY | 2025-03-05 15:49 | XMS_ITS | Encounter Summary ---
Author Organization [facility] [place], Address [address] [place] [address] Phone Care Team Providers Care Campus Coordinator Name Role Phone Woods, Christiane Ramey MD Primary Care Provider U navailable Reason for Visit * Reason Comments Med Refill Encounter Details Date Type Department Care Team ([facility] Contact Info) Description 12/21/2021 Refill [facility] [address] [place] [address] Parker Hughes MD [address] [place] [address] [place] [address] Social History Tobacco Use Types [...] Upcoming Encounters Date Type Department Care Team ([facility] Contact Info) Description 08/11/2025 10:00 AM EDT Procedure visit [facility] [address] [place] [address] [place] [address] documented as of this encounter Visit Diagnoses Not on filedocumented in this encounter Care Teams Campus Coordinator Relationship Specialty Start Date End Date Christiane Vernon MD PCP - General 03/18/19 documented as of this encounter
--- OUTSIDE RECORDS SUMMARY | 2025-03-05 15:49 | XMS_ITS | Encounter Summary ---
Author Organization [facility] [place], Address [address] [place] [address] Phone Care Team Providers Care Ore Puncher Name Role Phone Christiane Vernon MD Primary Care Provider Latrell oviedo Encounter Details Date Type Department Care Team (Late Contact Info) Description 05/26/2021 Documentation Only [facility] [address] [place] [phone] Phillip Small MD [address] [place] [address] [place] [phone] Social History Tobacco Use Types Packs/Day Years [...] visit [facility] [address] [place] [phone] documented as of this encounter Visit Diagnoses Not on filedocumented in this encounter Care Teams Ore Puncher Relationship Specialty Start Date End Date Christiane Vernon MD PCP - General 03/18/19 documented as of this encounter
--- OUTSIDE RECORDS SUMMARY | 2025-03-05 15:49 | XMS_ITS | Encounter Summary ---
Author Organization [facility] [place], Address [address] [place] [address] Phone Care Team Providers Care Manager Utilization Name Role Phone Christiane Vernon MD Primary Care Provider Latrell oviedo Encounter Details Date Type Department Care Team (Late Contact Info) Description 05/26/2021 Documentation Only [facility] [address] [place] [phone] Phillip Small MD [address] [place] [address] [place] [phone] Social History Tobacco Use Types Packs/Day Years [...] visit [facility] [address] [place] [phone] documented as of this encounter Visit Diagnoses Not on filedocumented in this encounter Care Teams Manager Utilization Relationship Specialty Start Date End Date Christiane Vernon MD PCP - General 03/18/19 documented as of this encounter
--- OUTSIDE RECORDS SUMMARY | 2025-03-05 15:49 | XMS_ITS | Encounter Summary ---
Author Organization [facility] [place], Address [address] [place] [address] Phone Care Team Providers Care Sanitor Name Role Phone Christiane Vernon MD Primary Care Provider Latrell oviedo Encounter Details Date Type Department Care Team (Late Contact Info) Description 05/16/2021 Documentation Only [facility] [address] [place] [phone] Phillip Small MD [address] [place] [address] [place] [phone] Social History Tobacco Use Types Packs/Day Years [...] visit [facility] [address] [place] [phone] documented as of this encounter Visit Diagnoses Not on filedocumented in this encounter Care Teams Sanitor Relationship Specialty Start Date End Date Christiane Vernon MD PCP - General 03/18/19 documented as of this encounter
--- OUTSIDE RECORDS SUMMARY | 2025-03-05 15:49 | XMS_ITS | Encounter Summary ---
Author Organization [facility] [place], Address [address] [place] [address] Phone Care Team Providers Care Medical Driver Name Role Phone Christiane Vernon MD Primary Care Provider Latrell oviedo Encounter Details Date Type Department Care Team (Late Contact Info) Description 05/26/2021 Documentation Only [facility] [address] [place] [phone] Phillip Small MD [address] [place] [address] [place] [phone] Social History Tobacco Use Types Packs/Day Years [...] Of [facility] [address] [place] [phone] documented as of this encounter Visit Diagnoses Not on filedocumented in this encounter Care Teams Medical Driver Relationship Specialty Start Date End Date Christiane Vernon MD PCP - General 03/18/19 documented as of this encounter
--- OUTSIDE RECORDS SUMMARY | 2025-03-05 15:49 | XMS_ITS | Clinical Summary ---
Author Organization [facility], Address [address] [place] [address] Phone Care Team Providers Care Sales Representative Groceries Name Role Phone Janeen, Christiane Ramey MD Primary Care Provider U [...] 40-45%. Subsequent admitted with chest discomfort to [facility] in LVEF was noted to be [...] 40-45%. Subsequent admitted with chest discomfort to [facility] in LVEF was noted to be [...] ascites 05/16/2021 Atherosclerotic heart diseas e of [place] coronary artery without angina pectoris 05/15/2021 Diarrhea [...] Encounters Date Type Department Care Team Description 03/04/2025 Orders Only [facility] [address] [place] [address] Sanjeev Forrester MD 03/04/2025 Treatment [facility] [address] [place] [phone] Aria Santiago FNP-C End stage renal disease; Dependence on renal dialysis 02/25/2025 Orders Only [facility] [address] [place] [address] Sanjeev Forrester MD 02/23/2025 Treatment [facility] [address] [place] [address] Aria Santiago FNP-C End stage renal disease; Dependence on renal dialysis 02/18/2025 Orders Only [facility] [address] [address] Sanjeev Forrester MD 02/11/2025 Orders Only [facility] [address] [address] Sanjeev Forrester MD 02/06/2025 Treatment [facility] [address] [place] [address] Aria Santiago FNP-C End stage renal disease; Dependence on renal dialysis 02/04/2025 Orders Only [facility] [address] [address] Sanjeev Forrester MD 01/28/2025 Orders Only [facility] [address] [address] Sanjeev Forerster MD 01/28/2025 Treatment [facility] [address] [place] [address] Phillip Small MD End stage renal disease; Dependence on renal dialysis 01/23/2025 Treatment [facility] [address] [place] [address] Aria Santiago FNP-C End stage renal disease; Dependence on renal dialysis 01/21/2025 Orders Only [facility] [address] [address] Sanjeev Forrester MD 01/16/2025 Treatment [facility] [address] [place] [address] Aria Santiago FNP-C End stage renal disease; Dependence on renal dialysis 01/14/2025 Orders Only [facility] [address] [address] Sanjeev Forrester MD 01/07/2025 Orders Only [facility] [address] [address] Sanjeev Forrester MD 12/31/2024 Orders Only [facility] [address] [address] Sanjeev Forrester MD 12/31/2024 Treatment [facility] [address] [place] [address] Aria Santiago SMALL PIECE CUTTER-C End stage renal disease; Dependence on renal dialysis 12/26/2024 Treatment [facility] [address] [place] [address] Phillip Small MD End stage renal disease; Dependence on renal dialysis 12/24/2024 Orders Only [facility] [address] [address] Sanjeev Forrester MD 12/19/2024 Treatment [facility] [address] [place] [address] Aria Santiago FNP-C End stage renal disease; Dependence on renal dialysis 12/17/2024 Orders Only [facility] [address] [address] Sanjeev Forrester MD 12/12/2024 Treatment [facility] [address] [place] [address] Aria Santiago FNP-C End stage renal disease; Dependence on renal dialysis 12/10/2024 Orders Only [facility] [address] [address] Sanjeev Forrester MD 12/03/2024 Orders Only [facility] [address] [address] Sanjeev Forrester MD 12/03/2024 Treatment [facility], [address] [place] [address] Aria Santiago, SMALL PIECE CUTTER-C End stage renal disease; Dependence on renal dialysis from Last 3 Months Immunizations Immunization Administration [...] visit [facility], - [facility] Access Center [address] [place] [phone] Health Maintenance Due Date Last Done Comments [...] Priority Date/Time Associated Diagnosis Comments HEMATOLOGY Routine 03/04/2025 HEMATOLOGY Routine 02/25/2025 HEMATOLOGY Routine 02/18/2025 [facility] RESULTS Routine 02/11/2025 HD KINETICS Routine 02/11/2025 POST CHEMISTRY Routine 02/11/2025 CHEMISTRY Routine 02/11/2025 TRACE ELEMENTS Routine 02/11/2025 IMMUNO CHEMISTRY Routine 02/11/2025 SPECIAL CHEMISTRY Routine 02/11/2025 CHEMISTRY Routine 02/11/2025 HEMATOLOGY Routine 02/11/2025 HEMATOLOGY Routine 02/04/2025 HEMATOLOGY [...] 12/17/2024 HEMATOLOGY Routine 12/10/2024 HEMATOLOGY Routine 12/03/2024 HEMOGLOBIN A1C Routine 03/02/2021 10:44 AM EDT from Last 3 Months or Most Recently Relevant to Health Maintenance Results * (ABNORMAL) HEMATOLOGY (03/04/2025) Only the most recent of14 resultswithin the time period is included. Hemoglobin 11.2(L) 12.0 - 16.0 g/dL [facility] Hemoglobin x 3 33.6(L) 36.0 - 48.0 % [facility] 03/04/2025 03/05/2025 8:2 9 AM EDT Narrative [facility] - 03/05/2025 Unless otherwise specified, test(s) performed at: [facility], [address] [place], [place] [id number] SORTING LIVESTOCK WORKER: Anoop Clinton M.D. For any questions, please call customer service at FREQUENCY:OTHER Resulting Agency Comment Specimen source: Blood Sanjeev Forrester MD LAB BLOOD ORDERABLES Final Re sult Performing Organization Address [facility] de Phone Number [facility] See order comments or contact performing lab Unknown, [place] * (ABNORMAL) HD KINETICS (02/11/2025) Only the most recent of3 resultswithin the time period is included. Pathologist [facility] % Urea Reduction 85(H) 65 - 80 % [facility] 02/11/2025 02/12/2025 9:2 7 AM EDT Narrative [facility] - 02/12/2025 Unless otherwise specified, test(s) performed at: [facility], [address] [place] [address] SORTING LIVESTOCK WORKER: Anoop Clinton M.D. For any questions, please call customer service at FREQUENCY:MONTHLY Resulting Agency Comment Specimen source: Plasma Sanjeev Forrester MD LAB BLOOD ORDERABLES Final Re sult Performing Organization Address [facility] Co de Phone Number [facility] See order comments or contact performing lab Unknown, [place] * SPECIAL CHEMISTRY (02/11/2025) Pathologist [facility] Vitamin D, 25-OH, Total 55.7 30.0 - 100.0 ng/mL [email or web address] Comment: Please Note: Effective March 12, 2023, the methodology for this test has changed to the [facility]. Creatine Kinase (CK/CPK) 32 30 - 223 U/L [email or web address] 02/11/2025 02/12/2025 10: 26 AM EDT Narrative [facility] - 02/12/2025 Unless otherwise specified, test(s) performed at: [facility], [address] [place], [place] [id number] SORTING LIVESTOCK WORKER: Anoop Clinton M.D. For any questions, please call customer service at FREQUENCY:MONTHLY Resulting Agency Comment Specimen source: Serum Sanjeev Forrester MD LAB BLOOD BANK TEST ORDERABLE S Edited Result - Final Performing Organization Address [facility] Co de Phone Number [facility] See order comments or contact performing lab Unknown, [place] * POST CHEMISTRY (02/11/2025) Only the most recent of3 resultswithin the time period is included. [facility] BUN Post Dialysis 7 6 - 19 mg/dL [email or web address] 02/11/2025 02/12/2025 9:2 7 AM EDT Narrative [facility] - 02/12/2025 Unless otherwise specified, test(s) performed at: [facility], [address] [place] [address] SORTING LIVESTOCK WORKER: Anoop Clinton M.D. For any questions, please call customer service at FREQUENCY:MONTHLY Resulting Agency Comment Specimen source: Plasma Sanjeev Forrester MD LAB BLOOD ORDERABLES Final Re sult Performing Organization Address [facility]/ZIP Co de Phone Number ciValue See order comments or contact performing lab Unknown, [place] * IMMUNO CHEMISTRY (02/11/2025) Only the most recent of3 resultswithin the time period is included. [facility] Hep B Surface Ag Negative Negative [facility] Hepatitis B Surface Ab 313 mIU/mL [email or web address] Comment: The anti-HBs (Hepatitis B surface antibody) is greater than or equal to 10 mIU/mL and implies immunity. The patient has either had an antibody response to HBV vaccination, received a transfusion, or has recovered from HBV infection. For post-vaccination antibody testing guidelines for the general public, refer to MMWR May 05, 2005/Vol.54 (No. 16); -23, and for healthcare workers, refer to MMWR May 02, 2013/Vol.62 (No. 10); 1-18. Reference Range: <10 mIU/mL Non-Immune >=10 mIU/mL Immune The magnitude of the measured result above 10 mIU/mL is not indicative of the total amount of antibody present. Hepatitis C Antibody Nonreactive Nonreactive [email or web address] Comment: No HCV antibody detected. The above test result was obtained using Siemens [employer]aur XP chemiluminescent method. Results obtained with different assay methods or kits cannot be used interchangeably. S/CO Ratio 0.02 0.00 - 0.79 [email or web address] Comment: s/co ratio Interpretation Supplemental testing <0.80 Nonreactive No further testing required. 0.80-0.99 Equivocal HCV RNA Quantitative Real-Time PCR is recommended. 1.00->11.00 Reactive HCV RNA Quantitative Real-Time PCR is recommended to distinguish active from resolved cases. 02/11/2025 02/12/2025 10: 26 AM EDT Narrative [facility] - 02/12/2025 Unless otherwise specified, test(s) performed at: [facility], [address] [place] [address] SORTING LIVESTOCK WORKER: Anoop Clinton M.D. For any questions, please call customer service at FREQUENCY:MONTHLY Resulting Agency Comment Specimen source: Serum Sanjeev Forrester MD LAB BLOOD ORDERABLES Edited R esult - Final ciValue See order comments or contact performing lab Unknown, [place] * TRACE ELEMENTS (02/11/2025) Aluminum <5 0 - 10 mcg/L [email or web address] Comment: This test was developed and its performance characteristics determined by [facility]. It has not been cleared or approved by the FDA. The laboratory is regulated under CLIA as qualified to perform high complexity testing. This test is used for clinical purposes. It should not be regarded as investigational or for research. 02/11/2025 02/12/2025 9:3 5 AM EDT Narrative [facility] - 02/12/2025 Unless otherwise specified, test(s) performed at: [facility], [address] [place], [place] [id number] SORTING LIVESTOCK WORKER: Anoop Clinton M.D. For any questions, please call customer service at FREQUENCY:MONTHLY Resulting Agency Comment Specimen source: Serum Sanjeev Forrester MD LAB BLOOD ORDERABLES Final Re sult Performing Organization Address [facility] Co de Phone Number [facility] See order comments or contact performing lab Unknown, [place] * (ABNORMAL) [facility] (02/11/2025) Only the most recent of6 resultswithin the time period is included. PTH 246(H) 16 - 80 pg/mL [facility] 02/11/2025 02/12/2025 9:4 8 AM EDT Narrative [facility] - 02/12/2025 Unless otherwise specified, test(s) performed at: [facility], [address] [place], [place] [id number] SORTING LIVESTOCK WORKER: Anoop Clinton M.D. For any questions, please call customer service at FREQUENCY:MONTHLY Resulting Agency Comment Specimen source: Plasma Sanjeev Forrester MD LAB BLOOD ORDERABLES Final Re sult Performing Organization Address [facility] de Phone Number [facility] See order comments or contact performing lab Unknown, [place] * [facility] Results (02/11/2025) Only the most recent of3 resultswithin the time period is included. eKdrt/V 2.02 [facility] PCR 42.82 [facility] WSTDKT/V 2.8 [facility] eKt/V ([place]at[place]all) 1.99 [facility] spKt/V (Daugirdas II) 2.29 [facility] eNPCR 0.96 [facility] eKt/V Gotch 2.02 Knowledg e Center nPCR_HD 1.02 [facility] spKt/V Gotch 2.34 [facility]led [facility] 02/11/2025 02/11/2025 us Teddy Ordering Provider LAB BLOOD ORDERABLES Final Result [facility] Contact Performing lab Unknown, [place] * Hemoglobin A1c (03/02/2021 10:44 AM EDT) Hemoglobin A1C 5.6 (4.0-5.6) % [facility] Comment: MONITORING: In known diabetic patients, hemoglobin A1c targets should be discussed with health care provider. DIAGNOSTIC USE: The [place] Diabetes Association (ADA) and the World Health [...] Supplement 1 Testing performed or reported by [facility], a Service of [facility], [address] [place] [address] Reyes Rodriguez MD, Intraoperative Neuro Tech [facility]# [id number] 03/02/2021 10:4 4 AM EDT 03/02/2021 10:47 AM EDT us Phillip Small MD LAB BLOOD ORDERABLES Final Res ult [facility] from Last 3 Months or Most Recently Relevant to Health Maintenance Insurance [facility] Dual SNP ([id number]) [facility] Care Teams Sales Representative Groceries Relationship Specialty Start Date End Date [place], Christiane Ramey MD PCP - General 03/18/19
--- OUTSIDE RECORDS SUMMARY | 2025-03-05 15:49 | XMS_ITS | Encounter Summary ---
Author Organization [facility], Address [address] [place] [address] Phone Care Team Providers Care Charter Boat Operator Name Role Phone [place], Christiane Ramey MD Primary Care Provider Latrell oviedo Encounter Details Date Type Department Care Team (Late st Contact Info) Description 03/04/2025 Treatment [facility], [address] [place] [address] Aria Santiago FNP-C [address] [place] [phone] End stage renal disease; Dependence on renal [...] Dialysis Note - Aria Santiago FNP-C - 03/04/2025 12:00 AM EDT Patient: Gabriel Beck, 1950, 74y, F Dialysis Location: [facility] Attending Business Reporting Developer: Sanjeev Forrester Service Date: 03/04/2025 Service Provider: Aria Madamas, MARKING MACHINE TENDER I met face to face with the patient today. OVERVIEW The patient presented with ESRD on dialysis Primary cause of renal failure: Recurrent and persistent hematuria with other morphologic changes LAST HOSPITALIZATION Discharge Diagnosis: K81.2 Acute cholecystitis with chronic cholecystitis R11.0 Nausea Admission Date 09/14/23 Discharge Date 09/15/23 DIALYSIS PRESCRIPTION IHD 3x Week Start date: 02/27/25 Dialyzer: FX CorAL 60 BFR: 450 DFR: Manual 500 Potassium: 2.0 Sodium: 138 EDW: 53.5 Duration: 4:00 Calcium: 2.50 Bicarb: 32 Rx updated on: 02/27/2025 TREATMENT ASSESSMENT BP Stand Pre 03/04/2025: 142/79 03/02/2025: 146/74 02/27/2025: 162/86 BP Sit Pre 03/04/2025: 146/80 03/02/2025: 168/80 02/27/2025: 139/79 BP Stand Post 03/04/2025: 117/65 03/02/2025: 133/68 02/27/2025: 118/64 BP Sit Post 03/04/2025: 134/66 03/02/2025: 137/58 02/27/2025: 139/49 Prescribed Tx time 03/04/2025: 4:00 03/02/2025: 4:00 02/27/2025: 4:00 Tx Duration 03/04/2025: 3:58 03/02/2025: 3:59 02/27/2025: 3:50 Missed Treatments 0 - last 30 days 1 - last 60 days 01/23 - recent FLUID ASSESSMENT EDW (kg) 03/04/2025: 53.5 03/02/2025: 53.5 02/27/2025: 53.0 Weight Pre (kg) 03/04/2025: 55.2 03/02/2025: 55.6 02/27/2025: 55.1 Weight Post (kg) 03/04/2025: 53.5 03/02/2025: 53.3 02/27/2025: 53.3 PWV (kg) 03/04/2025: 0.0 03/02/2025: -0.2 02/27/2025: 0.3 UF Rate (mL/kg/hr) 03/04/2025: 8 03/02/2025: 10.8 02/27/2025: 8.8 ADEQUACY ASSESSMENT spKt/V, URR 02/11/2025: 2.29, 85.0 01/14/2025: 2.23, 84.0 12/17/2024: 2.4, 86.0 ACCESS ASSESSMENT Access Type: AVGraft Access SubType: Synthetic - Standard (PTFE) Access Status: Active (In Use) - 11/25/2021 Access Location: Right Upper Arm Created: 11/01/2021 Flow 02/18/2025: 1406 01/26/2025: 1644 01/21/2025: 1302 ANEMIA ASSESSMENT HGB, TSAT 02/25/2025: 10.2, - 02/18/2025: 10.7, - 02/11/2025: 9.7, 37.0 Ferritin 02/11/2025: 1025.0 01/14/2025: 1307.0 12/17/2024: 1572.0 Mircera, IVP (mcg) 02/25/2025: 200 02/11/2025: 200 01/28/2025: 150 Iron Sucrose (Venofer) (mg) 02/27/2025: 50 02/20/2025: 50 BMM ASSESSMENT PTH, Intact 02/11/2025: 246.0 01/14/2025: 236.0 12/17/2024: 171.0 Calcium, Phosphorus 02/11/2025: 8.9, 4.9 01/14/2025: 8.9, 5.8 12/17/2024: 9.1, 5.0 Vitamin D (Calcitriol) Oral (mcg) 03/02/2025: 0.5 02/27/2025: 0.5 02/25/2025: 0.5 NUTRITION ASSESSMENT Potassium, Albumin 02/11/2025: 5.2, 3.0 01/14/2025: 4.9, 3.4 12/17/2024: 4.7, 3.3 eNPCR 02/11/2025: 0.96 01/14/2025: 1.03 12/17/2024: 1.18 DIAGNOSIS Chief Complaint: N18.6 End stage renal disease Comments: Patient seen and examined. VSS with no complaints to offer. S1, S2. RRR, LS CTA BL. Access patent Patient is stable. Patient data updated 03/04/2025 at 3:43 PM Signed By: Aria Santiago NP on 03/04/2025 3:43:26 PM documented in this encounter Plan of Treatment Upcoming Encounters Date Type Department Care Team (Late st Contact Info) Description 08/11/2025 10:00 AM EDT Procedure visit [facility] - [facility] [address] [place] [phone] documented as of this encounter Visit Diagnoses Diagnosis End stage renal disease Dependence on renal dialysis documented in this encounter Care Teams Charter Boat Operator Relationship Specialty Start Date End Date Christiane Vernon MD PCP - General 03/18/19 documented as of this encounter
--- OUTSIDE RECORDS SUMMARY | 2025-03-05 15:49 | XMS_ITS | Encounter Summary ---
Author Organization [facility], Address [address] [place] [address] Phone Care Team Providers Care Steel Fixer Name Role Phone Harris, Christiane Ramey MD Primary Care Provider Latrell oviedo Encounter Details Date Type Department Care Team ([facility] Contact Info) Description 03/04/2025 Orders Only [facility] [address] [place] [phone] Sanjeev Forrester MD [address] [place] [address] [place] [phone] Social History Tobacco Use Types Packs/Day Years [...] visit [facility], - [facility] Access Center [address] [place] [address] [place] [phone] documented as of this encounter Procedures Procedure Name Priority Date/Time Associated Diagnosis Comments HEMATOLOGY Routine 03/04/2025 documented in this encounter Results * (ABNORMAL) HEMATOLOGY (03/04/2025) Hemoglobin 11.2(L) 12.0 - 16.0 g/dL [facility] Hemoglobin x 3 33.6(L) 36.0 - 48.0 % [facility] 03/04/2025 03/05/2025 8:2 9 AM EDT Narrative [facility] - 03/05/2025 Unless otherwise specified, test(s) performed at: [facility], [address] [place] [id number] BIOMEDICAL ANALYTICAL SCIENTIST: Anoop Clinton M.D. For any questions, please call customer service at FREQUENCY:OTHER Resulting Agency Comment Specimen source: Blood Sanjeev Forrester MD LAB BLOOD ORDERABLES Final Re sult [facility] See order comments or contact performing lab Unknown, [place] documented in this encounter Visit Diagnoses Not on filedocumented in this encounter Care Teams Steel Fixer Relationship Specialty Start Date End Date Christiane Vernon MD PCP - General 03/18/19 documented as of this encounter
--- OUTSIDE RECORDS SUMMARY | 2025-03-05 15:49 | XMS_ITS | Encounter Summary ---
Author Organization [facility], Address [address] [place] [address] Phone Care Team Providers Care Supervisor Telephone Clerks Name Role Phone Christiane Vernon MD Primary Care Provider Latrell oviedo Encounter Details Date Type Department Care Team (Late Contact Info) Description 05/26/2021 Documentation Only [facility] [address] [place] [phone] Phillip Small MD [address] [place] [address] [place] [phone] Social History Tobacco Use Types Packs/Day Years [...] visit [facility] V[facility] Access Center [address] [place] [phone] documented as of this encounter Visit Diagnoses Not on filedocumented in this encounter Care Teams Supervisor Telephone Clerks Relationship Specialty Start Date End Date Christiane Vernon MD PCP - General 03/18/19 documented as of this encounter
--- OUTSIDE RECORDS SUMMARY | 2025-03-05 15:49 | XMS_ITS | Encounter Summary ---
Author Organization [facility], Address [address] [place] [address] Phone Care Team Providers Care Steam Plant Operator Name Role Phone Christiane Vernon MD Primary Care Provider Latrell oviedo Encounter Details Date Type Department Care Team (Late Contact Info) Description 05/17/2021 Documentation Only [facility] [address] [place] [phone] Phillip Small MD [address] [place] [address] [place] [phone] Social History Tobacco Use Types Packs/Day Years [...] visit [facility] Center [address] [place] [phone] documented as of this encounter Visit Diagnoses Not on filedocumented in this encounter Care Teams Steam Plant Operator Relationship Specialty Start Date End Date Christiane Vernon MD PCP - General 03/18/19 documented as of this encounter
--- OUTSIDE RECORDS SUMMARY | 2025-03-05 15:49 | XMS_ITS | Encounter Summary ---
Author Organization [facility] Address [address] [place] [address] Phone Care Team Providers Care Chemical Equipment Sales Engineer Name Role Phone [place] MD Primary Care Provider U navailable Reason for Visit * Reason Comments Med Refill Encounter Details Date Type Department Care Team (Late Contact Info) Description 12/27/2023 Refill [facility] [address] [place] [phone] Phillip Small MD [address] [place] [address] [place] [phone] Social History Tobacco Use Types Packs/Day Years [...] visit [facility] Vascular Access Center [address] [place] [phone] documented as of this encounter Visit Diagnoses Not on filedocumented in this encounter Care Teams Chemical Equipment Sales Engineer Relationship Specialty Start Date End Date [place] MD PCP - General 03/18/19 documented as of this encounter
--- OUTSIDE RECORDS SUMMARY | 2025-03-05 15:49 | XMS_ITS | Encounter Summary ---
Author Organization [facility], Address [address] [place] [address] Phone Care Team Providers Care Director Of Regional Sales Name Role Phone Christiane Vernon MD Primary Care Provider U navailable Reason for Visit * Reason Comments Med Refill Encounter Details Date Type Department Care Team (Late Contact Info) Description 11/19/2019 Refill [facility] [address] [place] [address] Kasi Kilpatrick MD Social History Tobacco Use [...] visit [facility] [address] [place] [phone] documented as of this encounter Visit Diagnoses Not on filedocumented in this encounter Care Teams Director Of Regional Sales Relationship Specialty Start Date End Date Christiane Vernon MD PCP - General 03/18/19 documented as of this encounter
--- OUTSIDE RECORDS SUMMARY | 2025-03-05 15:49 | XMS_ITS | Encounter Summary ---
Author Organization [facility] Address [address] [place] [address] Phone Care Team Providers Care Community Ambassador Name Role Phone LuanaChristiane dye MD Primary Care Provider U navailable Reason for Visit * Reason Comments Med Refill Encounter Details Date Type Department Care Team (Late Contact Info) Description 07/08/2023 Refill [facility] [address] [place] [phone] Phillip Small MD [address] [place] [address] [place] [phone] Social History Tobacco Use Types Packs/Day Years [...] [facility] [address] [place] [phone] documented as of this encounter Visit Diagnoses Not on filedocumented in this encounter Care Teams Community Ambassador Relationship Specialty Start Date End Date LuanaChristiane MD PCP - General 03/18/19 documented as of this encounter
== END ==
LOC: HO.CARD 12:43
PROVIDERS: PCP Family Medicine; Visit Provider Nurse Practitioner Family
DX: I50.20 Unspecified systolic (congestive) heart failure (principal); R01.1 Cardiac murmur, unspecified
CPT/HCPCS: 93306; Q9957

== ENCOUNTER → 2025-03-05 12:46 | Outpatient (BNV) | payer OTHER, SELFPAY | PROVIDERS: PCP Family Medicine; Visit Provider Internal Medicine Cardiovascular Disease | DX: I50.9 Heart failure, unspecified (principal); I51.7 Cardiomegaly; I34.0 Nonrheumatic mitral (valve) insufficiency; I77.810 Thoracic aortic ectasia | CPT/HCPCS: 93306 ==

== ENCOUNTER 2025-04-23 10:03 | Outpatient (REF) | payer OTHER, SELFPAY ==
[2025-04-23 14:52] LABS: Alanine Aminotransferase 16 U/L (0-31); Albumin Level 3.5 g/dL (3.5-5.0); Alkaline Phosphatase 260 U/L (39-117); Anion Gap 12 (12-20); Aspartate Amino Transferase 49 U/L (5-31); Blood Urea Nitrogen 27 mg/dL (9-16); Calcium 9.7 mg/dL (8.4-10.2); Carbon Dioxide 30 mmol/L (22-29); Chloride 103 mmol/L (96-108); Cholesterol 91 mg/dL (<200); Estimated Glomerular Filt Rate 11; HDL Cholesterol 42 mg/dL (>40); Potassium 3.9 mmol/L (3.3-5.1); Sodium 141 mmol/L (135-145); Total Protein 7.3 g/dL (6.5-8.0); Triglycerides 57 mg/dL (<150)
[2025-04-24 07:58] LABS: ~HepC Num1 0.17 S/CO (0.00-0.79); ~Hepatitis C Antibody Nonreactive (Nonreactive)
== END 2025-04-23 10:04 | disposition home or self-care (01) ==
LOC: HO.HHCL 10:03
PROVIDERS: PCP Family Medicine; Referring Provider Nurse Practitioner Family; Visit Provider Family Medicine
DX: N18.4 Chronic kidney disease, stage 4 (severe) (principal); E11.22 Type 2 diabetes mellitus with diabetic chronic kidney disease; I48.0 Paroxysmal atrial fibrillation; Z11.59 Encounter for screening for other viral diseases; E78.5 Hyperlipidemia, unspecified; Z11.1 Encounter for screening for respiratory tuberculosis
CPT/HCPCS: 36415; 80048; 80061; 80076; 84443; 86481; 86803

== ENCOUNTER → 2025-04-29 14:47 | Outpatient (BNV) | payer OTHER, SELFPAY | PROVIDERS: PCP Family Medicine; Visit Provider Internal Medicine Cardiovascular Disease | DX: R01.1 Cardiac murmur, unspecified (principal) | CPT/HCPCS: 93297 ==

== ENCOUNTER → 2025-05-12 13:55 | Outpatient (BNV) | payer OTHER, SELFPAY | PROVIDERS: PCP Family Medicine; Visit Provider Internal Medicine Cardiovascular Disease | DX: Z95.810 Presence of automatic (implantable) cardiac defibrillator (principal) | CPT/HCPCS: 93297 ==